=== PATIENT | female | born 2000 | race Caucasian/White ===

== ENCOUNTER 2022-01-08 16:10 | Emergency (ER) | payer OTHER, SELFPAY ==
--- NOTE | ~2022-01-08 | XR_ITS ---
EXAMINATION: XR chest 2V Exam Date/Time: 01/08/2022 17:48 CDT HISTORY: LEFT SIDE CHEST SHOULDER/ARM PAIN X 1 WEEK Comparison: None available. RESULT: Lines, tubes, and devices: None. Lungs and pleura: Clear. Cardiomediastinal silhouette: Normal. Other: No acute osseous or upper abdominal finding. IMPRESSION: No acute cardiopulmonary process. Reviewed, dictated and finalized at location K.
[2022-01-08 16:12] VITALS: BP 144/93; PULSE 115; RESP 18; TEMP 36.7; O2SAT 100
--- NOTE | 2022-01-08 16:15 | ECG_ITS ---
Measurements Intervals [place] Rate: 110 P: 51 VA: 129 QRS: 48 QRSD: 94 T: 10 QT: 332 QTc: 449 Interpretive Statements SINUS TACHYCARDIA OTHERWISE WITHIN NORMAL LIMITS NO PREVIOUS ECG AVAILABLE FOR COMPARISON Electronically Signed On 01-09-2022 14:14:47 CDT by Nakul Horvath M.D.
--- NOTE | 2022-01-08 17:43 | ED.CHESTPAIN ---
HPI - Chest Pain General Chief Complaint: Chest Pain Stated Complaint: chest pain Time Seen by Provider: 01/08/22 17:22 History of Present Illness HPI narrative: 21-year-old female with a history of high blood pressure presents to the emergency room for evaluation of chest pain. Patient states for the last 7 days, she has been experiencing sharp stabbing pain in her left side of her chest radiates into her shoulder. States the pain lasts for just a couple of seconds. States pain is present when she is just sitting. Denies shortness of breath or difficulty breathing. Denies exertional pain. Denies any other alleviating or aggravating factors. Denies any presyncope or syncopal episodes, no nausea or vomiting. Related Data Home Medications Medication Instructions Recorded Confirmed norethindrone acetate 1 mg-ethinyl 1 tablet PO DAILY 09/23/21 10/14/21 estradiol 20 mcg tablet (Neli) Allergies Allergy/AdvReac Type Severity Reaction Status Date / Time vancomycin Allergy Unknown Rash Verified 10/14/21 10:03 Review of Systems Review of Systems: CONSTITUTIONAL: Denies fever, chills, or sweats. EYES: Denies visual changes, redness, or discharge. ENT: Denies rhinorrhea, congestion, sore throat, or otalgia. CARDIOVASCULAR: Reports chest pain, denies palpitations or edema RESPIRATORY: Denies cough or dyspnea. GASTROINTESTINAL: Denies abdominal pain, nausea, vomiting, or diarrhea. GENITOURINARY: Denies dysuria or hematuria. SKIN: Denies rash or itching. MUSCULOSKELETAL: Denies back pain, joint pain, or myalgia. NEUROLOGIC: Denies headache, numbness, dizziness, or weakness. PSYCHIATRIC: Denies anxiety or depression. [facility] Past Medical History Medical History Claustrophobia Moderate right ankle sprain Wears glasses Surgical History Surgical History H/O laparoscopy Family History Family History Father Hypertension Mother Leukemia Hypertension Depression Sibling Asthma Depression Grandparent Skin cancer Diabetes mellitus Social History Social History Smoking status: Never smoker Alcohol intake: never Substance use: never Substance use type: does not use Gender identity (if verbalized by the patient): Female Exam Narrative: GENERAL: Well-appearing, well-nourished, no physical limitations, and in no acute distress. HEAD: Normocephalic, atraumatic. EYES: Conjunctivae normal, PERRLA and EOMI. CHEST: Clear to auscultation. No respiratory distress. No wheezes rales or rhonchi. No tenderness. HEART: Regular rate and rhythm. No murmur heard. Normal peripheral pulses. EXTREMITIES: Normal range of motion. No edema. No clubbing or cyanosis SKIN: Warm, dry, no rash. No noted wounds NEURO: No focal deficits. Alert and oriented x3. MAEW. CN's II-XI intact bilaterally, normal gait PSYCH: Cooperative. Normal mood and affect. Course Vital Signs Vital signs: Vital Signs Temperature 36.7 C 01/08/22 16:12 Pulse Rate 115 H 01/08/22 16:12 Respiratory Rate 18 01/08/22 16:12 Blood Pressure 144/93 H 01/08/22 16:12 Pulse Oximetry 100 01/08/22 16:12 Oxygen Delivery Room Air 01/08/22 16:12 Temperature 36.7 C 01/08/22 16:12 Pulse Rate 70 01/08/22 18:40 Respiratory Rate 18 01/08/22 18:40 Blood Pressure 124/71 01/08/22 18:40 Pulse Oximetry 98 01/08/22 18:40 Oxygen Delivery Room Air 01/08/22 17:45 MDM - Chest Pain Lab Data Result diagrams: 01/08/22 18:01 01/08/22 18:01 Labs: Lab Results 01/08/22 01/08/22 01/08/22 Range/Units 18:01 18:01 18:01 WBC 7.1 (4.5-10.0) K/mm3 RBC 4.37 (4.2-5.4) M/mm3 Hgb 13.4 (12.0-15.0) g/dL Hct 40.3 (37.0-47.0) % MCV 92.2 (80-100) fl MCH 30.7 (
[2022-01-08 17:44] VITALS: PULSE 101
[2022-01-08 17:45] VITALS: O2SAT 100; O2SAT 99
[2022-01-08 17:46] VITALS: BP 135/99; PULSE 105; RESP 20; O2SAT 100
[2022-01-08 18:06] LABS: Basophils Percent Auto 0.6 % (0.2-1.2); Eosinophils Absolute Auto 0.1 K/mm3 (0-0.3); Eosinophils Percent Auto 1.4 % (0-4.4); Hematocrit 40.3 % (37.0-47.0); Hemoglobin 13.4 g/dL (12.0-15.0); Immature Granulocyte Absolute 0.02 K/mm3 (0.00-0.031); Immature Granulocyte Percent A 0.3 % (0-0.5); Lymphocytes Absolute Auto 1.53 K/mm3 (0.9-3.2); Lymphocytes Percent Auto 21.5 % (18.3-44.2); Mean Corpuscular HGB Conc 33.3 g/dl (32-36); Mean Corpuscular Hemoglobin 30.7 pg (26-34); Mean Corpuscular Volume 92.2 fl (80-100); Mean Platelet Volume 10.2 fl (7.4-10.4); Monocytes Absolute Auto 0.4 K/mm3 (0.1-0.6); Monocytes Percent Auto 5.4 % (2.6-8.5); Neutrophils Percent Auto 70.8 % (45.5-73.1); Platelet Count Result 311 k/mm3 (150-375); Red Blood Count 4.37 M/mm3 (4.2-5.4); Red Cell Distribution Width 12.7 % (11.5-14.5); White Blood Count 7.1 K/mm3 (4.5-10.0)
[2022-01-08 18:19] LABS: Anion Gap 11 mmol/L (8-16); Blood Urea Nitrogen 13 mg/dL (7-17); Calcium 9.3 mg/dL (8.4-10.2); Carbon Dioxide 24 mmol/L (22-30); Chloride 104 mmol/L (98-107); Estimated CRCL calculation 118 ml/min; Estimated Glomerular Filt Rate > 60; Glucose 106 mg/dL (65-110); Lipase 153 U/L (23-300); Potassium 4.3 mmol/L (3.4-5.0); Sodium 139 mmol/L (137-145)
[2022-01-08 18:20] LABS: D Dimer 0.35 ug/mL (<0.48)
[2022-01-08 18:30] LABS: Troponin I < 0.012 ng/mL (0.000-0.034)
[2022-01-08] MEDS: SODIUM CHLORIDE 0.9% IV 1,000 ML 999 ML IV CONT (18:39)
[2022-01-08 18:40] VITALS: BP 124/71; PULSE 70; RESP 18; O2SAT 98
--- NOTE | 2022-01-08 19:13 | PC.NURSE ---
Report received from LEFTY Montoya. This nurse assumed care of patient at this time.
[2022-01-08 19:45] VITALS: BP 134/87; PULSE 88; RESP 17; O2SAT 98
== END 2022-01-08 19:48 | disposition home or self-care (01) ==
PROVIDERS: Emergency Provider Nurse Practitioner Family; PCP Family Medicine
DX: R07.9 Chest pain, unspecified (principal); I10 Essential (primary) hypertension; R00.0 Tachycardia, unspecified
CPT/HCPCS: 36415; 71046; 80048; 83690; 84443; 84484; 85025; 85380; 93005; 96360; 99284; J7030

== ENCOUNTER 2022-03-16 10:32 | Outpatient (CLI) | payer OTHER, SELFPAY ==
--- NOTE | 2022-03-16 10:38 | EST_ITS ---
Patient Info Name: Ashley Hall Age: 21 years : 2000 Gender: Female Ht: 66 in Wt: 200 lbs BSA: 2.09 m2 Exam Date: 03/16/2022 11:35 AM Exam Location: [facility] Stress Patient Status: Outpatient Admit Date: 03/16/2022 Staff Ordering Physician: Nella Silva Attending Provider: Nella Silva Exercise Technologist: Eddie Grimm RDCS, RT Exercise Physician: Deng Do DO Exam Type: CA stress test treadmill Study Info A treadmill exercise stress test was performed. Summary 1. 1. Negative Sudhir exercise stress test for ischemic ST changes by ECG criteria. 2. 2. Reduced functional capacity, achieving 11 METs of workload. 3. 3. Baseline hypertension with hypertensive response to exercise. 4. 4. Appropriate HR response to exercise. 5. 5. Appropriate HR recovery at 1 minute post exercise. 6. 6. No imaging with stress testing. 7. 7. Patient informed of the above results. Protocol: Sudhir Stress ECG Details Stage: REST Duration (min): 2 min : 12 sec Speed (mph): 0.0 Grade (%): 0 HR (bpm): 99 SBP (mmHg): 152 DBP (mmHg): 97 METS: --- Stage: REST Duration (min): 16 min : 16 sec Speed (mph): 0.0 Grade (%): 0 HR (bpm): 108 SBP (mmHg): 152 DBP (mmHg): 97 METS: --- Stage: STAGE 1 Duration (min): 1 min : 0 sec Speed (mph): 1.7 Grade (%): 10 HR (bpm): 149 SBP (mmHg): 152 DBP (mmHg): 97 METS: --- Stage: STAGE 1 Duration (min): 2 min : 0 sec Speed (mph): 1.7 Grade (%): 10 HR (bpm): 144 SBP (mmHg): 152 DBP (mmHg): 97 METS: --- Stage: STAGE 1 Duration (min): 3 min : 0 sec Speed (mph): 1.7 Grade (%): 10 HR (bpm): 151 SBP (mmHg): 193 DBP (mmHg): 92 METS: --- Stage: STAGE 2 Duration (min): 1 min : 0 sec Speed (mph): 2.5 Grade (%): 12 HR (bpm): 160 SBP (mmHg): 193 DBP (mmHg): 92 METS: --- Stage: STAGE 2 Duration (min): 2 min : 0 sec Speed (mph): 2.5 Grade (%): 12 HR (bpm): 167 SBP (mmHg): 196 DBP (mmHg): 94 METS: --- Stage: STAGE 2 Duration (min): 3 min : 0 sec Speed (mph): 2.5 Grade (%): 12 HR (bpm): 171 SBP (mmHg): 196 DBP (mmHg): 94 METS: --- Stage: STAGE 3 Duration (min): 1 min : 0 sec Speed (mph): 3.4 Grade (%): 14 HR (bpm): 182 SBP (mmHg): 202 DBP (mmHg): 88 METS: --- Stage: STAGE 3 Duration (min): 2 min : 0 sec Speed (mph): 3.4 Grade (%): 14 HR (bpm): 190 SBP (mmHg): 202 DBP (mmHg): 88 METS: --- Stage: STAGE 3 Duration (min): 3 min : 0 sec Speed (mph): 3.4 Grade (%): 14 HR (bpm): 193 SBP (mmHg): 220 DBP (mmHg): 86 METS: --- Stage: STAGE 4 Duration (min): 0 min : 30 sec Speed (mph): 4.2 Grade (%): 16 HR (bpm): 197 SBP (mmHg): 220 DBP (mmHg): 86 METS: --- Stage: RECOVERY Duration (
== END 2022-03-16 10:33 | disposition home or self-care (01) ==
LOC: ANHCARD 10:33
PROVIDERS: PCP Family Medicine; Visit Provider Nurse Practitioner
DX: R07.9 Chest pain, unspecified (principal)
CPT/HCPCS: 93017

== ENCOUNTER 2022-05-30 18:48 | Emergency (ER) | payer OTHER, SELFPAY ==
[2022-05-30 18:57] VITALS: BP 126/78; PULSE 86; RESP 18; TEMP 36.7; O2SAT 99
--- NOTE | 2022-05-30 18:59 | ED.ANXIETY ---
HPI - Anxiety General Chief Complaint: Anxiety Stated Complaint: chest pain, left shoulder pain Time Seen by Provider: 05/30/22 18:50 Source: patient and RN notes reviewed Mode of arrival: ambulatory Limitations: no limitations History of Present Illness HPI narrative: Patient has had problems with anxiety causing her chest pain for the past 2 years. She is currently on BuSpar. She took a Xanax 0.25 today but it did not seem to help. She says that her anxiety is causing her to feel like chest pain and shoulder pain. She has had a negative stress test just 2 months ago and all of her labs have been normal with her emergency room evaluation. complaint: anxiety Onset (ago): day(s) (1) Symptoms: chest pain Severity: moderate Quality: intermittent Place: home History of similar episodes: Yes Provoking factors: none known Relieving factors: nothing Exacerbating factors: nothing Associated symptoms: denies other symptoms Related Data Home Medications Medication Instructions Recorded Confirmed norethindrone acetate 1 mg-ethinyl 1 tablet PO DAILY 09/23/21 02/28/22 estradiol 20 mcg tablet (Neli) Allergies Allergy/AdvReac Type Severity Reaction Status Date / Time vancomycin Allergy Unknown Rash Verified 05/30/22 19:09 Review of Systems Review of Systems: All systems reviewed & are unremarkable except as noted in HPI and below Constitutional: Constitutional: Denies chills, Denies excessive sweating and Denies fever(s) Respiratory: Respiratory: Denies cough and Denies dyspnea Gastrointestinal: Gastrointestinal: Denies diarrhea, Denies nausea and Denies vomiting PMFSH Past Medical History Medical History Claustrophobia Moderate right ankle sprain Wears glasses Surgical History Surgical History H/O laparoscopy Family History Family History Father Hypertension Mother Leukemia Hypertension Depression Sibling Asthma Depression Grandparent Skin cancer Diabetes mellitus Social History Social History Smoking status: Never smoker Alcohol intake: never Substance use: never Substance use type: does not use Lack of Transportation: No Lack of Food: Never True Current Housing: I Have Housing Concerned About Future Housing: No Difficulty Paying Gas/Electric Bills: No Difficulty Paying for Meds: No Currently Unemployed: No Education: High School Diploma/GED Difficulty w/ Childcare or Family Care: No Gender identity (if verbalized by the patient): Female Exam Const: General: healthy appearing, no acute distress and alert Nutritional Appearance: well nourished Orientation/consciousness: patient oriented x3 Limitations: no limitations Other: Female nurse in room during exam HENMT: Head: normal to inspection Ears: external ears normal Eyes: Conjunctivae: conjunctivae normal Pupils: Equal, round and reactive pupils present EOM: EOMs intact bilaterally Neck: Neck: normal visual inspection Resp: Effort & Inspection: normal respiratory effort Auscultation: clear to auscultation bilaterally Cardio: Rate: regular rate Rhythm: regular rhythm GI: GI Palp: Yes Soft to palpation and No Tenderness to palpation present (GI) Auscultation: normal bowel sounds Back/Spine/Pelvis: Cervical Spine: cervical ROM normal Thoracic/Lumbar Spine: thoraco-lumbar ROM normal Skin: General skin exam: normal color Rashes: no rashes Neuro: General: patient oriented x3, moves all extremities, no focal motor deficits and CN's II-XI intact bilaterally Speech: normal speech Gait exam (Neuro): Normal gait present Extrem: General: normal to inspection and no clubbing, cyanosis or edema Psych: Mental Status: mental status grossly normal Affect: Anxious affect present Atti
[2022-05-30 19:16] VITALS: BP 118/84; PULSE 79; O2SAT 99
[2022-05-30] MEDS: chlordiazePOXIDE (*CRX) 5 MG CAPSULE 10 MG PO (19:16)
--- NOTE | 2022-05-30 19:19 | PC.NURSE ---
Care resumed, pt resting in room c b-friend at side. VSS stable, monitor shows NSR. Informed on POC, meds given as Rx'd.
--- NOTE | 2022-05-30 19:19 | PC.NURSE ---
REPORT TO LEFTY MCGUIRE
[2022-05-30 19:34] VITALS: BP 105/72; PULSE 72; RESP 18; TEMP 36.6; O2SAT 98
== END 2022-05-30 19:37 | disposition home or self-care (01) ==
PROVIDERS: Emergency Provider Emergency Medicine
DX: F41.9 Anxiety disorder, unspecified (principal)
CPT/HCPCS: 99283; A9270

== ENCOUNTER 2024-07-01 16:14 | Outpatient (CLI) | payer BC, SELFPAY ==
--- OUTSIDE RECORDS SUMMARY | 2024-07-01 16:23 | XMS_ITS | Referral Summary ---
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 This disclosure is being madepursuant to the Care Everywhere program and may not contain all information available regarding this patient. 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 Discharge Disposition: Home or Self Care 05/30/2024 Travel 05/30/2024 9:00 AM [facility] - 05/30/2024 11:59 PM [facility] [address] [place] [id number] Philly Bradford MD Discharge Disposition: Home or Self Care 05/30/2024 8:15 AM [facility] - 05/30/2024 8:59 AM [facility] [address] [place] [address] Philly Bradford MD Discharge Disposition: Home or Self Care 05/06/2024 Telephone [facility] [address] [place] [address] Nereida Pérez Appointment (LM for pt to C/S appt) from Last 3 Months Allergies Active Allergy Reactions Criticality Noted Date Comments Vancomycin Rash High 05/31/2024 Medications * Be aware that medications may not be up to date on this document. Alwaysverify current medications with the patient. Medication Sig Dispensed Refills Start Date End Date Status labetalol (Normodyne; Trandate) 200 MG tabletIndications:Hyp ertension Take 1 (one) tablet by mouth every 12 hours Reasons: High Blood Pressure Active Vit-DSS-Fe Fum-FA ( vitamin with iron) tablet Take 1 (one) tablet by mouth once daily Active Active Problems Problem Noted Date Diagnosed Date Hypertension complicating 05/31/2024 BMI 38.0-38.9,adult 05/31/2024 Obesity affecting in second trimester 05/31/2024 Stem cell donor 06/01/2020 Estimated Date of Delivery Comme nts Yes 09/23/2024 Based on last me nstrual period of 12/18/2023 Social History Tobacco Use Types Packs/Day Years Used Date Smoking Tobacco: Never Smokeless Tobacco: Never Alcohol Use Standard Drinks/Week Comments Never 0 (1 standard drink = 0.6 oz pur e alcohol) AUDIT-C Answer Date Recorded Q1: How often do you have a drink containing alc ohol? Never 06/10/2020 Average Number of Drinks Not on file 021 Frequency of Binge Drinking Not on file 12/2020 Estimated Date of Delivery Comme nts Yes 09/23/2024 Based on last me nstrual period of 12/18/2023 Sex and Gender Information Value Date Recorded Sex Assigned at Not on file Gender Identity Not on file Sexual Orientation Not on file Last Filed Vital Signs Vital Sign Reading Time Taken Comments Blood Pressure 129/77 05/30/2024 9:16 AM [facility] Pulse 95 05/30/2024 9:16 AM [facility] Temperature 37 ??C (98.6 ??F) 06/10/2020 4:54 PM [facility] Respiratory Rate 18 06/10/2020 7:10 PM [facility] Oxygen Saturation 100% 06/10/2020 7:10 PM [facility] Inhaled Oxygen Concentration - - Weight 110.5 kg (243 lb 9.6 oz) 05/30/2024 9:16 AM [facility] Height 170.2 cm (5' 7 ) 05/30/2024 9:16 AM [facility] Body Mass Index 38.15 05/30/2024 9:16 AM [facility] Plan of Treatment Upcoming Encounters Date Type Department Care Team (Late st Contact Info) Description 07/25/2024 1:00 PM [facility] Appointment [facility] [address] [place], [place] [id number] Procedures Procedure Name Priority Date/Time Associated Diagnosis Comments SONOGRAM - COMPLETE Routine 06/27/2024 1:04 PM [facility] BMI 38.0-38.9,adult Chronic hypertension affecting (HCC) 26 weeks gestation of (HCC) Obesity affecting in second trimester, unspecified obesity type (HCC) Hypertension affecting in second trimester (HCC) SONOGRAM - COMPLETE Routine 05/30/2024 8:20 AM [facility] Chronic hypertension affecting (HCC) Second (HCC) 23 weeks gestation of (HCC) from Last 3 Months Results * SONOGRAM - COMPLETE (06/27/2024 1:04 PM [facility]) Only the most recent of2 resultswithin the time period is included. Linked Results Indication ======== Incomplete anatomy Chronic Hypertension, on Labetalol 200 mg Seasonal Asthma History ====== OB History ? 2. Para 0 Lab Tests Test ? Date ? Result NIPT ? Low risk, Female Maternal Assessment Physical Exam ??Height 170 cm, 5 ft 7 in. Weight 111 kg, 245 lb. Initial weight 107 kg, 236 lb. BMI 38.37 kg/m?. Initial BMI 36.96 kg/m?. Weight gain 4 kg, 9 lb Method ====== Transabdominal ultrasound. View: Sufficient ========= Keith . Number of fetuses: 1 Dating ====== ? Date ?Details ? Gest. age ? PORFIRIO LMP ?12/18/2023 ? 27 w + 3 d ?09/23/2024 Stated PORFIRIO ? 27 w + 3 d ?09/23/2024 U/S ?06/27/2024 ? based upon AC, BPD, Femur, HC ? 27 w + 3 d ?09/23/2024 Assigned dating based on the LMP, selected on 05/30/2024 ? 27 w + 3 d ?09/23/2024 General Evaluation Cardiac activity present. FHR 152 bpm. Presentation: cephalic Placenta: Placental site: anterior Umbilical cord: Cord vessels: 3 vessel cord. Insertion site: normal insertion Amniotic fluid: Amount of AF: normal. MVP 6.9 cm Biometry BPD ?65.6 ?mm ?26w 3d ??12% ? Hadlock HC ? 245.7 ?? mm ?26w 5d ??7% ?Hadlock Cerebellum tr ?30.8 ?mm ?23% ? [place] AC ? 231.0 ?? mm ?27w 3d ??43% ? Hadlock Femur ?54.6 ?mm ?28w 6d ??76% ? Hadlock Humerus ?47.7 ?mm ?28w 0d ??64% ? Ashok HC / AC ?1.06 Weight Calculation: EFW ?1,127 ?? g ? 51% ? Hadlock EFW (lb,oz) ?2 lb 8 ??oz EFW by ? Hadlock ([id number]) appropriate Growth Overview Exam date ?GA ?BPD (mm) ?HC (mm) AC (mm) FL (mm) HL (mm) EFW (g) 05/30/2024 ? 23w 3d ??54.1 ?13% ? 204.7 ?? 9% ?188.6 ?? 48% ? 42 ?46% ? 39.4 ?59% ? 599 ? 44% 06/27/2024 ? 27w 3d ??65.6 ?12% ? 245.7 ?? 7% ?231 ? 43% ? 54.6 ?76% ? 47.7 ?64% ? 1127 ?51% Anatomy The following structures appear normal: Head / Neck ?Lateral ventricles. Cerebellum. Cisterna magna. Face ? Lips. Profile. Nose. Heart / Thorax 4-chamber view. 3-vessel view. 6-[id number]-qyuuqdd view. Abdomen ?Cord insertion. Stomach. Kidneys. Bladder. Genitals. Spine ?Cervical spine. Thoracic spine. Lumbar spine. Sacral spine. Extremities / Skeleton Feet. The following structures were documented previously: Head / Neck ?Cranium. Choroid plexus. Midline falx. Cavum septi pellucidi. Thalami. Face ? Nasal bone. Orbits. Heart / Thorax RVOT view. LVOT view. Situs. Aortic arch view. Bicaval view. Ductal arch view. Great vessels. ? Right lung. Left lung. Diaphragm. Abdomen ?Bowel. Extremities / Skeleton Arms. Hands. Legs. sex: female. Maternal Structures Right Ovary ?Appears normal ? Cyst(s) Size 18.0 mm x 12.0 mm x 15.0 mm. Mean 15.0 mm. Vol 1.696 cm? Left Ovary ? Not visualized Impression ========= Single, live, intrauterine at 27w 3d Appropriate size for established PORFIRIO Amniotic fluid volume: normal No major malformations were seen within the limitations of ultrasound Umbilical vein appears prominent at juncture with portal vein but within normal limits Follow-up ======== Follow up ultrasound in 4 weeks for growth assessment Begin weekly testing at 32 weeks (or sooner as indicated) Coding ====== Procedures ? [id number]: US Preg Uterus Follow Up [place] [facility] Anatomical Region Laterality Modality Other 06/27/2024 1:04 PM [facility] Jorden West MD [facility] ORDERABLES from Last 3 Months DEV HALL Personal/Famil y Father 1974 [address] [facility] Ashley Hall Personal/Famil y Self 2000 Dev Hall Personal/Famil y Father 1974 TIFFANY HALL Personal/Famil y Grandmother 1949
--- OUTSIDE RECORDS SUMMARY | 2024-07-01 16:23 | XMS_ITS | Patient Health Summary ---
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 This disclosure is being madepursuant to the Care Everywhere program and may not contain all information available regarding this patient. Last updated 18.[facility] Allergies * Vancomycin(Rash) -High Criticality Medications * Be aware that medications may not be up to date on this document. Alwaysverify current medications with the patient. 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 05/31/2024 Stem cell donor 06/01/2020 Social History Tobacco Use Types Packs/Day Years [...] Comments Blood Pressure 129/77 05/30/2024 9:16 AM DIRECTOR MARKET INTELLIGENCE Pulse 95 05/30/2024 9:16 AM DIRECTOR MARKET INTELLIGENCE Temperature 37 ??C (98.6 ??F) 06/10/2020 4:54 PM DIRECTOR MARKET INTELLIGENCE Respiratory Rate 18 06/10/2020 7:10 PM DIRECTOR MARKET INTELLIGENCE Oxygen Saturation 100% 06/10/2020 7:10 PM DIRECTOR MARKET INTELLIGENCE Inhaled Oxygen Concentration - - Weight 110.5 kg (243 lb 9.6 oz) 05/30/2024 9:16 AM DIRECTOR MARKET INTELLIGENCE Height 170.2 cm (5' 7 ) 05/30/2024 9:16 AM DIRECTOR MARKET INTELLIGENCE Body Mass Index 38.15 05/30/2024 9:16 AM DIRECTOR MARKET INTELLIGENCE Procedures * SONOGRAM - COMPLETE(Performed 06/27/2024) Performed for BMI 38.0-38.9,adult, Chronic hypertension affecting (HCC), 26 weeks gestation of (HCC), Obesity affecting in second trimester, unspecified obesity type (HCC), Hypertension affecting in second trimester (HCC) * SONOGRAM - COMPLETE(Performed 05/30/2024) Performed for Chronic hypertension affecting (HCC), Second (HCC), 23 weeks gestation of (HCC) * CARDIAC EKG ORDER(Performed 06/17/2020) * SPECIAL DIET INSTRUCTIONS TO INCLUDE...(Performed 06/10/2020) * DAILY WEIGHTS(Performed 06/10/2020) Performed for Stem cell donor * PUNCTURE SITE(Performed 06/10/2020) * DIET REGULAR(Performed 06/10/2020) Performed for Stem cell donor * DIET NPO(Performed 06/10/2020) * DIFFERENTIAL MANUAL(Performed 06/10/2020) Performed for Stem cell donor * CALCIUM IONIZED WHOLE BLOOD(Performed 06/10/2020) Performed for Stem cell donor * CBC W AUTO DIFFERENTIAL(Performed 06/10/2020) Performed for Stem cell donor * EKG 12-LEAD(Performed 06/10/2020) Performed for Stem cell donor * FLOW CYTOMETRY CD34 COUNT BLOOD(Performed 06/10/2020) Performed for Stem cell donor * DIFFERENTIAL MANUAL(Performed 06/10/2020) Performed for Stem cell donor * CBC W AUTO DIFFERENTIAL(Performed 06/10/2020) Performed for Stem cell donor * CALCIUM IONIZED WHOLE BLOOD(Performed 06/10/2020) Performed for Stem cell donor * TYPE + SCREEN PANEL(Performed 06/10/2020) Performed for Stem cell donor * IR CENTRAL LINE INSERT NON TUNNEL(Performed 06/10/2020) Performed for Stem cell donor * PT-INR [facility](Performed 06/10/2020) Performed for Preop testing * HCG URINE QUALITATIVE - POCT (IP) INTERFACED(Performed 06/10/2020) * HCG URINE QUAL POCT NOTIFICATION(Performed 06/10/2020) Performed for Preop testing * URINALYSIS REFLEX TO MICROSCOPIC NO CULTURE(Performed 06/07/2020) Performed for Urinary frequency, Stem cell donor * CULTURE URINE(Performed 06/07/2020) Performed for Urinary frequency, Stem cell donor * CBC W AUTO DIFFERENTIAL(Performed 06/06/2020) Performed for Stem cell donor * HCG URINE QUALITATIVE(Performed 06/04/2020) Performed for Stem cell donor * SARS-COV-2 (COVID-19) IN HOUSE(Performed 06/04/2020) Performed for Stem cell donor * QUANTIFERON-TB GOLD PLUS 4-TUBE(Performed 05/26/2020) Performed for Stem cell donor * URINALYSIS W/MICROSCOPIC NO CULTURE(Performed 05/21/2020) Performed for Stem cell donor * CULTURE URINE(Performed 05/21/2020) Performed for Stem cell donor * HERPES SIMPLEX 1+2 PCR(Performed 05/21/2020) Performed for Stem cell donor * HLA TYPING LOW/HIGH RESOLUTION DPB1(Performed 05/14/2020) Performed for Stem cell donor * HLA TYPING DNA LOW RESOLUTION DR,DQ(Performed 05/14/2020) Performed for Stem cell donor * HLA TYPING DNA LOW RESOLUTION A,B,C(Performed 05/14/2020) Performed for Stem cell donor * HLA TYPING DNA HIGH RESOLUTION DR(Performed 05/14/2020) Performed for Stem cell donor * URINALYSIS W/MICROSCOPIC NO CULTURE(Performed 05/14/2020) Performed for Stem cell donor * TYPE + SCREEN PANEL(Performed 05/14/2020) Performed for Stem cell donor * HLA TYPING DNA HIGH RESOLUTION DQ(Performed 05/14/2020) Performed for Stem cell donor * HLA TYPING DNA HIGH RESOLUTION C(Performed 05/14/2020) Performed for Stem cell donor * HLA TYPING DNA HIGH RESOLUTION B(Performed 05/14/2020) Performed for Stem cell donor * HLA TYPING DNA HIGH RESOLUTION A(Performed 05/14/2020) Performed for Stem cell donor * VARICELLA ZOSTER ANTIBODY IGG(Performed 05/14/2020) Performed for Stem cell donor * VARICELLA ZOSTER ANTIBODY IGM(Performed 05/14/2020) Performed for Stem cell donor * URIC ACID BLOOD(Performed 05/14/2020) Performed for Stem cell donor * TRIGLYCERIDES BLOOD(Performed 05/14/2020) Performed for Stem cell donor * TOXOPLASMA GONDII ANTIBODY IGG(Performed 05/14/2020) Performed for Stem cell donor * SICKLE CELL SCREEN(Performed 05/14/2020) Performed for Stem cell donor * PTT [facility](Performed 05/14/2020) Performed for Stem cell donor * PT-INR [facility](Performed 05/14/2020) Performed for Stem cell donor * PROTEIN ELECTROPHORESIS BLOOD(Performed 05/14/2020) Performed for Stem cell donor * PRE-TRANSPLANT ENGRAFT(Performed 05/14/2020) Performed for Stem cell donor * PHOSPHORUS BLOOD(Performed 05/14/2020) Performed for Stem cell donor * MAGNESIUM BLOOD(Performed 05/14/2020) Performed for Stem cell donor * LDH BLOOD(Performed 05/14/2020) Performed for Stem cell donor * HERPES SIMPLEX 1+2 ANTIBODY IGG/IGM PANEL(Performed 05/14/2020) Performed for Stem cell donor * HEPATITIS B SURFACE ANTIBODY(Performed 05/14/2020) Performed for Stem cell donor * HCG BETA BLOOD QUANTITATIVE(Performed 05/14/2020) Performed for Stem cell donor * SUPA-MOYER VIRUS ANTIBODY TO VCA IGM(Performed 05/14/2020) Performed for Stem cell donor * SUPA-MOYER VIRUS ANTIBODY TO VCA IGG(Performed 05/14/2020) Performed for Stem cell donor * DONOR PANEL [id number](Performed 05/14/2020) Performed for Stem cell donor * CYTOMEGALOVIRUS ANTIBODY IGG BLOOD(Performed 05/14/2020) Performed for Stem cell donor * CYTOMEGALOVIRUS ANTIBODY IGM BLOOD(Performed 05/14/2020) Performed for Stem cell donor * COMPREHENSIVE METABOLIC PANEL(Performed 05/14/2020) Performed for Stem cell donor * CHOLESTEROL BLOOD(Performed 05/14/2020) Performed for Stem cell donor * CBC W AUTO DIFFERENTIAL(Performed 05/14/2020) Performed for Stem cell donor * HLA TYPING DNA HIGH RESOLUTION A(Performed 04/09/2020) Performed for Donor of unspecified organ or tissue * HLA TYPING DNA HIGH RESOLUTION B(Performed 04/09/2020) Performed for Donor of unspecified organ or tissue * HLA TYPING DNA HIGH RESOLUTION C(Performed 04/09/2020) Performed for Donor of unspecified organ or tissue * HLA TYPING DNA HIGH RESOLUTION DR(Performed 04/09/2020) Performed for Donor of unspecified organ or tissue * HLA TYPING DNA HIGH RESOLUTION DQ(Performed 04/09/2020) Performed for Donor of unspecified organ or tissue * HLA TYPING DNA LOW RESOLUTION A,B,C(Performed 04/09/2020) Performed for Donor of unspecified organ or tissue * HLA TYPING DNA LOW RESOLUTION DR,DQ(Performed 04/09/2020) Performed for Donor of unspecified organ or tissue * HLA TYPING LOW/HIGH RESOLUTION DPB1(Performed 04/09/2020) Performed for Donor of unspecified organ or tissue * CYTOMEGALOVIRUS ANTIBODY IGG BLOOD(Performed 04/09/2020) Performed for Donor of unspecified organ or tissue * TYPE + SCREEN PANEL(Performed 04/09/2020) Performed for Donor of unspecified organ or tissue * PATHOLOGY/CYTOLOGY REPORT ORDER(Performed 06/22/2014) * PATHOLOGY TISSUE EXAM (STL)(Performed 06/19/2014) Performed for Cyst of right eyelid * IMAGING/RADIOLOGY/XRAY RESULTS ORDER(Performed 10/14/2012) Results * SONOGRAM - COMPLETE (06/27/2024 1:04 PM DIRECTOR MARKET INTELLIGENCE) Only the most recent of2 resultswithin the [...] lb 8 ??oz EFW by ? Hadlock ([id number]) appropriate Growth Overview Exam date ?GA ?BPD [...] Heart / Thorax 4-chamber view. 3-vessel view. 3-ghzdnq-vcdxshr view. Abdomen ?Cord insertion. Stomach. Kidneys. Bladder. [...] sooner as indicated) Coding ====== Procedures ? 38858: US [facility] Laterality Modality Other 06/27/2024 1:04 PM DIRECTOR MARKET INTELLIGENCE Jorden West MD [facility] ORDERABLES * CARDIAC EKG ORDER (06/17/2020 8:57 PM DIRECTOR MARKET INTELLIGENCE) Narrative 06/17/2020 8:57 PM DIRECTOR MARKET INTELLIGENCE Ordered by an unspecified provider. Scanned Document CARDIAC SERVICES ORD ERABLES * SPECIAL TRAY REQUEST (06/10/2020 5:21 PM DIRECTOR MARKET INTELLIGENCE) Narrative Zeferino Dunlap MD - 06/10/2020 5:21 PM DIRECTOR MARKET INTELLIGENCE Zeferino Dunlap MD ? 06/14/2020 ??3:47 PM Cellular Therapy Collections Progress Note Ashley Hall 06/10/2020 Diagnosis: No diagnosis found. Protocol/Regimen: HPC Mobilization and Collection Interval History: 19 y.o. female healthy allo donor for her mother here for allogeneic hematopoietic progenitor collection #1. She reports mild tenderness around catheter insertion site. No F/C/N/V/D/JOINER/CP/SOB No Known Allergies Current Outpatient Medications Medication Sig Dispense Refill ? ? bacitracin ointment ??28 g 3 ? ? multivitamin daily (THERAGRAN) tablet Take 1 Tab by mouth daily with food. ? mupirocin (BACTROBAN) 2 % ointment Apply to affected area 3 times daily ? sulfamethoxazole-trimethoprim (BACTRIM DS; SEPTRA DS) 800-160 MG tablet Take 1 tablet by mouth 2 times daily ?? No current facility-administered medications for this encounter. ?? Facility-Administered Medications Ordered in Other Encounters Medication Dose Route Frequency Provider Last Rate Last Admin ? ? acetaminophen (TYLENOL) tablet 650 mg ??650 mg Oral q4h PRN Meeta Henriquez PHOTOVOLTAIC FABRICATION TECHNICIAN-BOARDING KENNEL OR CATTERY OPERATOR ? calcium gluconate 5 g in 300 mL NS ??5 g Intravenous PRN FlorenceMeeta, PHOTOVOLTAIC FABRICATION TECHNICIAN-BOARDING KENNEL OR CATTERY OPERATOR 100 mL/hr at 06/10/20 1040 5 g at 06/10/20 1040 Physical Exam Constitutional: VS: T=99, P=105, UC=468/93, Os sat=99% RA General Appearance: No acute distress Head: No nasal congestion or discharge Skin: no bruises, or petechiae, erythematous papule with scab in her right axilla Eyes: anicteric: Chest: lungs clear to auscultation Heart: tachy, normal S1 and S2, no murmur Abdomen: soft, non-tender, +BS Extremities: no edema Neuro: Cranial nerves: intact Access: R IJ triple lumen bonilla catheter, insertion site covered with gauze Lab and/or Imaging Studies Recent Results (from the past 24 hour(s)) HCG URINE QUAL POCT NOTIFICATION Collection Time: 06/10/20 ??7:40 AM Result Value Ref Range Comment Notification Label Only - See Separate Report ?? HCG URINE QUALITATIVE - POCT (IP) INTERFACED Collection Time: 06/10/20 ??7:42 AM Result Value Ref Range HCG Qual Urine Negative Negative PT-INR [facility] Collection Time: 06/10/20 ??7:56 AM Result Value Ref Range PT 13.6 12.1 - 14.8 Seconds INR 1.1 See Comment TYPE AND SCREEN Collection Time: 06/10/20 10:00 AM Result Value Ref Range Antibody Screen NEG ?? ABO Rh A POS ?? CALCIUM IONIZED WHOLE BLOOD Collection Time: 06/10/20 10:16 AM Result Value Ref Range Ionized Calcium Whole Blood 1.19 mmol/L Adjusted Ionized Calcium 1.16 (L) 1.19 - 1.34 mmol/L pH Whole Blood 7.35 7.35 - 7.45 CBC W AUTO DIFFERENTIAL Collection Time: 06/10/20 10:16 AM Result Value Ref Range WBC 41.6 (H) 3.5 - 10.5 10? 3 /uL RBC 3.81 (L) 3.90 - 5.00 10? 6 /uL Hemoglobin 11.8 (L) 12.0 - 15.5 g/dL Hematocrit 34.9 (L) 35.0 - 45.0 % MCV 91.6 81.0 - 97.0 fL MCH 31.0 28.0 - 34.0 pg MCHC 33.8 32.0 - 36.0 g/dL Platelet Count 241 150 - 400 10? 3 /uL RDW-SD 42.6 36.0 - 50.0 fL RDW-CV 12.9 11.2 - 14.8 % MPV 10.7 9.3 - 12.8 fL nRBC Absolute 0.04 (H) 0 10? 3 /uL nRBC Auto 0.1 (H) 0 /100 WBC FLOW CYTOMETRY CD34 COUNT BLOOD Collection Time: 06/10/20 10:16 AM Result Value Ref Range Reason for test ?Stem cell donor V59.02 Client Specimen ID # ?[id number] Number of Markers 2 ?? Flow Cytometry Results ? Differential Result % Comment Total Viability ??93.2 ?? Lymph/Grant/Gran Region Surface Marker Results % Absolute Count (cell/uL) CD34 0.11 42.648 CD45 91.93 35,642.364 Flow Cytometry Interpretation ?Testing is technical only and does not require an interpretation of results. Disclaimer ?Test performed at [facility], [address] [place] [address], [address]. This test was developed and its performance characteristics determined by the Flow Cytometry Laboratory. It has not been cleared by the [place] Food and Drug Administration (FDA). The FDA has determined that such clearance or approval is not necessary. This test is used for clinical purposes. It should not be regarded as investigational or for research. This laboratory is regulated under the Clinical Laboratory Improvement Amendments of 1998 (CLIA) as a qualified to perform high complexity clinical testing. Embedded Images ?? DIFFERENTIAL MANUAL Collection Time: 06/10/20 10:16 AM Result Value Ref Range WBC (corrected for NRBC) 41.6 10? 3 /uL Total Cell Count 100 ?? Neutrophils Absolute Manual 32.86 (H) 1.60 - 7.00 10? 3 /uL Lymphocyte Absolute 3.33 (H) 0.80 - 2.90 10? 3 /uL Monocytes Absolute 1.66 (H) 0.14 - 0.66 10? 3 /uL Eosinophils Absolute Manual 0.42 (H) 0.00 - 0.22 10? 3 /uL Band % Manual 25 (H) 0 - 10 % Neutrophil % Manual 54 30 - 60 % Lymphocyte % 8 (L) 20 - 45 % Monocytes % Manual 4 2 - 10 % Eosinophils % 1 1 - 6 % Metamyelocyte % Manual 6 (H) 0 % Myelocytes % Manual 2 (H) 0 % Platelet Estimate Adequate Adequate RBC Morphology Normal ?? EKG 12-LEAD Collection Time: 06/10/20 ??2:14 PM Result Value Ref Range Ventricular Rate 122 BPM Atrial Rate 122 BPM P-R Interval 138 ms QRS Duration ms 84 ms Q-T Interval ms 330 ms QTC Calculation (Bezet) 470 ms Calculated P [place] 61 degrees Calculated R [place] 73 degrees Calculated T [place] 15 degrees Interpretation EKG ?SINUS TACHYCARDIA OTHERWISE NORMAL ECG NO PREVIOUS ECGS AVAILABLE CALCIUM IONIZED WHOLE BLOOD Collection Time: 06/10/20 ??5:01 PM Result Value Ref Range Ionized Calcium Whole Blood 1.16 mmol/L Adjusted Ionized Calcium 1.20 1.19 - 1.34 mmol/L pH Whole Blood 7.48 (H) 7.35 - 7.45 Procedures Leukapheresis Assessment and Plan Ashley Hall is a 19 year old female healthy related haplo donor who presents for peripheral blood hematopoietic progenitor collection #1. This is Day 5 of her Neupogen. ??Catheter placement was confirmed per IR note. No changes were noted in Donor History Questionnaire. Donor was stable going into collection. Pre collection Hct and Plt levels were acceptable. Post collection Hct=32.9, Yor=042 . The donor experienced slowly increasing tachycardia during the collection. EKG was obtained pointing to sinus tachycardia. HR stabilized ~115. The goal for this procedure ??is 6 x 10e6 CD34 cells/kg. Processed volume during procedure was 20,231 mL. Yield of collection was [id number] CD34/kg. Goal was reached per Dr Mendoza. Zeferino Dunlap MD, PhD Zeferino Dunlap MD NURSING - DIET * DAILY WEIGHTS (06/10/2020 5:21 PM DIRECTOR MARKET INTELLIGENCE) Narrative Zeferino Dunlap MD - 06/10/2020 5:21 PM Zeferino Dunlap MD ? 06/14/2020 ??3:47 PM Cellular Therapy Collections Progress Note Ashley Hall 06/10/2020 Diagnosis: No diagnosis found. Protocol/Regimen: HPC Mobilization and Collection Interval History: 19 y.o. female healthy allo donor for her mother here for allogeneic hematopoietic progenitor collection #1. She reports mild tenderness around catheter insertion site. No F/C/N/V/D/JOINER/CP/SOB No Known Allergies Current Outpatient Medications Medication Sig Dispense Refill ? ? bacitracin ointment ??28 g 3 ? ? multivitamin daily (THERAGRAN) tablet Take 1 Tab by mouth daily with food. ? mupirocin (BACTROBAN) 2 % ointment Apply to affected area 3 times daily ? sulfamethoxazole-trimethoprim (BACTRIM DS; SEPTRA DS) 800-160 MG tablet Take 1 tablet by mouth 2 times daily ?? No current facility-administered medications for this encounter. ?? Facility-Administered Medications Ordered in Other Encounters Medication Dose Route Frequency Provider Last Rate Last Admin ? ? acetaminophen (TYLENOL) tablet 650 mg ??650 mg Oral q4h PRN Florence, Meeta, PHOTOVOLTAIC FABRICATION TECHNICIAN-BOARDING KENNEL OR CATTERY OPERATOR ? calcium gluconate 5 g in 300 mL NS ??5 g Intravenous PRN Florence, Meeta, PHOTOVOLTAIC FABRICATION TECHNICIAN-BOARDING KENNEL OR CATTERY OPERATOR 100 mL/hr at 06/10/20 1040 5 g at 06/10/20 1040 Physical Exam Constitutional: VS: T=99, P=105, SQ=758/93, Os sat=99% RA General Appearance: No acute distress Head: No nasal congestion or discharge Skin: no bruises, or petechiae, erythematous papule with scab in her right axilla Eyes: anicteric: Chest: lungs clear to auscultation Heart: tachy, normal S1 and S2, no murmur Abdomen: soft, non-tender, +BS Extremities: no edema Neuro: Cranial nerves: intact Access: R IJ triple lumen bonilla catheter, insertion site covered with gauze Lab and/or Imaging Studies Recent Results (from the past 24 hour(s)) HCG URINE QUAL POCT NOTIFICATION Collection Time: 06/10/20 ??7:40 AM Result Value Ref Range Comment Notification Label Only - See Separate Report ?? HCG URINE QUALITATIVE - POCT (IP) INTERFACED Collection Time: 06/10/20 ??7:42 AM Result Value Ref Range HCG Qual Urine Negative Negative PT-INR [facility] Collection Time: 06/10/20 ??7:56 AM Result Value Ref Range PT 13.6 12.1 - 14.8 Seconds INR 1.1 See Comment TYPE AND SCREEN Collection Time: 06/10/20 10:00 AM Result Value Ref Range Antibody Screen NEG ?? ABO Rh A POS ?? CALCIUM IONIZED WHOLE BLOOD Collection Time: 06/10/20 10:16 AM Result Value Ref Range Ionized Calcium Whole Blood 1.19 mmol/L Adjusted Ionized Calcium 1.16 (L) 1.19 - 1.34 mmol/L pH Whole Blood 7.35 7.35 - 7.45 CBC W AUTO DIFFERENTIAL Collection Time: 06/10/20 10:16 AM Result Value Ref Range WBC 41.6 (H) 3.5 - 10.5 10? 3 /uL RBC 3.81 (L) 3.90 - 5.00 10? 6 /uL Hemoglobin 11.8 (L) 12.0 - 15.5 g/dL Hematocrit 34.9 (L) 35.0 - 45.0 % MCV 91.6 81.0 - 97.0 fL MCH 31.0 28.0 - 34.0 pg MCHC 33.8 32.0 - 36.0 g/dL Platelet Count 241 150 - 400 10? 3 /uL RDW-SD 42.6 36.0 - 50.0 fL RDW-CV 12.9 11.2 - 14.8 % MPV 10.7 9.3 - 12.8 fL nRBC Absolute 0.04 (H) 0 10? 3 /uL nRBC Auto 0.1 (H) 0 /100 WBC FLOW CYTOMETRY CD34 COUNT BLOOD Collection Time: 06/10/20 10:16 AM Result Value Ref Range Reason for test ?Stem cell donor V59.02 Client Specimen ID # ?[id number] Number of Markers 2 ?? Flow Cytometry Results ? Differential Result % Comment Total Viability ??93.2 ?? Lymph/Grant/Gran Region Surface Marker Results % Absolute Count (cell/uL) CD34 0.11 42.648 CD45 91.93 35,642.364 Flow Cytometry Interpretation ?Testing is technical only and does not require an interpretation of results. Disclaimer ?Test performed at [facility], [address], [place], [place], [address]. This test was developed and its performance characteristics determined by the Flow Cytometry Laboratory. It has not been cleared by the [place] Food and Drug Administration (FDA). The FDA has determined that such clearance or approval is not necessary. This test is used for clinical purposes. It should not be regarded as investigational or for research. This laboratory is regulated under the Clinical Laboratory Improvement Amendments of 1998 (CLIA) as a qualified to perform high complexity clinical testing. Embedded Images ?? DIFFERENTIAL MANUAL Collection Time: 06/10/20 10:16 AM Result Value Ref Range WBC (corrected for NRBC) 41.6 10? 3 /uL Total Cell Count 100 ?? Neutrophils Absolute Manual 32.86 (H) 1.60 - 7.00 10? 3 /uL Lymphocyte Absolute 3.33 (H) 0.80 - 2.90 10? 3 /uL Monocytes Absolute 1.66 (H) 0.14 - 0.66 10? 3 /uL Eosinophils Absolute Manual 0.42 (H) 0.00 - 0.22 10? 3 /uL Band % Manual 25 (H) 0 - 10 % Neutrophil % Manual 54 30 - 60 % Lymphocyte % 8 (L) 20 - 45 % Monocytes % Manual 4 2 - 10 % Eosinophils % 1 1 - 6 % Metamyelocyte % Manual 6 (H) 0 % Myelocytes % Manual 2 (H) 0 % Platelet Estimate Adequate Adequate RBC Morphology Normal ?? EKG 12-LEAD Collection Time: 06/10/20 ??2:14 PM Result Value Ref Range Ventricular Rate 122 BPM Atrial Rate 122 BPM P-R Interval 138 ms QRS Duration ms 84 ms Q-T Interval ms 330 ms QTC Calculation (Bezet) 470 ms Calculated P [place] 61 degrees Calculated R [place] 73 degrees Calculated T [place] 15 degrees Interpretation EKG ?SINUS TACHYCARDIA OTHERWISE NORMAL ECG NO PREVIOUS ECGS AVAILABLE CALCIUM IONIZED WHOLE BLOOD Collection Time: 06/10/20 ??5:01 PM Result Value Ref Range Ionized Calcium Whole Blood 1.16 mmol/L Adjusted Ionized Calcium 1.20 1.19 - 1.34 mmol/L pH Whole Blood 7.48 (H) 7.35 - 7.45 Procedures Leukapheresis Assessment and Plan Ashley Hall is a 19 year old female healthy related haplo donor who presents for peripheral blood hematopoietic progenitor collection #1. This is Day 5 of her Neupogen. ??Catheter placement was confirmed per IR note. No changes were noted in Donor History Questionnaire. Donor was stable going into collection. Pre collection Hct and Plt levels were acceptable. Post collection Hct=32.9, Cvm=033 . The donor experienced slowly increasing tachycardia during the collection. EKG was obtained pointing to sinus tachycardia. HR stabilized ~115. The goal for this procedure ??is 6 x 10e6 CD34 cells/kg. Processed volume during procedure was 20,231 mL. Yield of collection was [id number] CD34/kg. Goal was reached per Dr Mendoza. Zeferino Dunlap MD, PhD Meeta ARIZMENDI NURSING - VITAL S IGNS AND ASSESSMENT * PUNCTURE SITE (06/10/2020 5:21 PM DIRECTOR MARKET INTELLIGENCE) Narrative Zeferino Dunlap MD - 06/10/2020 5:21 PM DIRECTOR MARKET INTELLIGENCE Zeferino Dunlap MD ? 06/14/2020 ??3:47 PM Cellular Therapy Collections Progress Note Ashley Hall 06/10/2020 Diagnosis: No diagnosis found. Protocol/Regimen: HPC Mobilization and Collection Interval History: 19 y.o. female healthy allo donor for her mother here for allogeneic hematopoietic progenitor collection #1. She reports mild tenderness around catheter insertion site. No F/C/N/V/D/JOINER/CP/SOB No Known Allergies Current Outpatient Medications Medication Sig Dispense Refill ? ? bacitracin ointment ??28 g 3 ? ? multivitamin daily (THERAGRAN) tablet Take 1 Tab by mouth daily with food. ? mupirocin (BACTROBAN) 2 % ointment Apply to affected area 3 times daily ? sulfamethoxazole-trimethoprim (BACTRIM DS; SEPTRA DS) 800-160 MG tablet Take 1 tablet by mouth 2 times daily ?? No current facility-administered medications for this encounter. ?? Facility-Administered Medications Ordered in Other Encounters Medication Dose Route Frequency Provider Last Rate Last Admin ? ? acetaminophen (TYLENOL) tablet 650 mg ??650 mg Oral q4h PRN Meeta Henriquez APRN-CNP ? calcium gluconate 5 g in 300 mL NS ??5 g Intravenous PRN Meeta Henriquez, JOSE-BOARDING KENNEL OR CATTERY OPERATOR 100 mL/hr at 06/10/20 1040 5 g at 06/10/20 1040 Physical Exam Constitutional: VS: T=99, P=105, LH=909/93, Os sat=99% RA General Appearance: No acute distress Head: No nasal congestion or discharge Skin: no bruises, or petechiae, erythematous papule with scab in her right axilla Eyes: anicteric: Chest: lungs clear to auscultation Heart: tachy, normal S1 and S2, no murmur Abdomen: soft, non-tender, +BS Extremities: no edema Neuro: Cranial nerves: intact Access: R IJ triple lumen bonilla catheter, insertion site covered with gauze Lab and/or Imaging Studies Recent Results (from the past 24 hour(s)) HCG URINE QUAL POCT NOTIFICATION Collection Time: 06/10/20 ??7:40 AM Result Value Ref Range Comment Notification Label Only - See Separate Report ?? HCG URINE QUALITATIVE - POCT (IP) INTERFACED Collection Time: 06/10/20 ??7:42 AM Result Value Ref Range HCG Qual Urine Negative Negative PT-INR [facility] Collection Time: 06/10/20 ??7:56 AM Result Value Ref Range PT 13.6 12.1 - 14.8 Seconds INR 1.1 See Comment TYPE AND SCREEN Collection Time: 06/10/20 10:00 AM Result Value Ref Range Antibody Screen NEG ?? ABO Rh A POS ?? CALCIUM IONIZED WHOLE BLOOD Collection Time: 06/10/20 10:16 AM Result Value Ref Range Ionized Calcium Whole Blood 1.19 mmol/L Adjusted Ionized Calcium 1.16 (L) 1.19 - 1.34 mmol/L pH Whole Blood 7.35 7.35 - 7.45 CBC W AUTO DIFFERENTIAL Collection Time: 06/10/20 10:16 AM Result Value Ref Range WBC 41.6 (H) 3.5 - 10.5 10? 3 /uL RBC 3.81 (L) 3.90 - 5.00 10? 6 /uL Hemoglobin 11.8 (L) 12.0 - 15.5 g/dL Hematocrit 34.9 (L) 35.0 - 45.0 % MCV 91.6 81.0 - 97.0 fL MCH 31.0 28.0 - 34.0 pg MCHC 33.8 32.0 - 36.0 g/dL Platelet Count 241 150 - 400 10? 3 /uL RDW-SD 42.6 36.0 - 50.0 fL RDW-CV 12.9 11.2 - 14.8 % MPV 10.7 9.3 - 12.8 fL nRBC Absolute 0.04 (H) 0 10? 3 /uL nRBC Auto 0.1 (H) 0 /100 WBC FLOW CYTOMETRY CD34 COUNT BLOOD Collection Time: 06/10/20 10:16 AM Result Value Ref Range Reason for test ?Stem cell donor V59.02 Client Specimen ID # ?[id number] Number of Markers 2 ?? Flow Cytometry Results ? Differential Result % Comment Total Viability ??93.2 ?? Lymph/Grant/Gran Region Surface Marker Results % Absolute Count (cell/uL) CD34 0.11 42.648 CD45 91.93 35,642.364 Flow Cytometry Interpretation ?Testing is technical only and does not require an interpretation of results. Disclaimer ?Test performed at [facility], [address] [place] [address], [id number]. This test was developed and its performance characteristics determined by the Flow Cytometry Laboratory. It has not been cleared by the [place] Food and Drug Administration (FDA). The FDA has determined that such clearance or approval is not necessary. This test is used for clinical purposes. It should not be regarded as investigational or for research. This laboratory is regulated under the Clinical Laboratory Improvement Amendments of 1998 (CLIA) as a qualified to perform high complexity clinical testing. Embedded Images ?? DIFFERENTIAL MANUAL Collection Time: 06/10/20 10:16 AM Result Value Ref Range WBC (corrected for NRBC) 41.6 10? 3 /uL Total Cell Count 100 ?? Neutrophils Absolute Manual 32.86 (H) 1.60 - 7.00 10? 3 /uL Lymphocyte Absolute 3.33 (H) 0.80 - 2.90 10? 3 /uL Monocytes Absolute 1.66 (H) 0.14 - 0.66 10? 3 /uL Eosinophils Absolute Manual 0.42 (H) 0.00 - 0.22 10? 3 /uL Band % Manual 25 (H) 0 - 10 % Neutrophil % Manual 54 30 - 60 % Lymphocyte % 8 (L) 20 - 45 % Monocytes % Manual 4 2 - 10 % Eosinophils % 1 1 - 6 % Metamyelocyte % Manual 6 (H) 0 % Myelocytes % Manual 2 (H) 0 % Platelet Estimate Adequate Adequate RBC Morphology Normal ?? EKG 12-LEAD Collection Time: 06/10/20 ??2:14 PM Result Value Ref Range Ventricular Rate 122 BPM Atrial Rate 122 BPM P-R Interval 138 ms QRS Duration ms 84 ms Q-T Interval ms 330 ms QTC Calculation (Bezet) 470 ms Calculated P [place] 61 degrees Calculated R [place] 73 degrees Calculated T [place] 15 degrees Interpretation EKG ?SINUS TACHYCARDIA OTHERWISE NORMAL ECG NO PREVIOUS ECGS AVAILABLE CALCIUM IONIZED WHOLE BLOOD Collection Time: 06/10/20 ??5:01 PM Result Value Ref Range Ionized Calcium Whole Blood 1.16 mmol/L Adjusted Ionized Calcium 1.20 1.19 - 1.34 mmol/L pH Whole Blood 7.48 (H) 7.35 - 7.45 Procedures Leukapheresis Assessment and Plan Ashley Hall is a 19 year old female healthy related haplo donor who presents for peripheral blood hematopoietic progenitor collection #1. This is Day 5 of her Neupogen. ??Catheter placement was confirmed per IR note. No changes were noted in Donor History Questionnaire. Donor was stable going into collection. Pre collection Hct and Plt levels were acceptable. Post collection Hct=32.9, Nbh=218 . The donor experienced slowly increasing tachycardia during the collection. EKG was obtained pointing to sinus tachycardia. HR stabilized ~115. The goal for this procedure ??is 6 x 10e6 CD34 cells/kg. Processed volume during procedure was 20,231 mL. Yield of collection was [id number] CD34/kg. Goal was reached per Dr Mendoza. Zeferino Dunlap MD, PhD Quan Paredes MD NURSING - WOUND SAMY TMENT * DIET NPO Except: NO EXCEPTIONS (06/10/2020 5:21 PM DIRECTOR MARKET INTELLIGENCE) Narrative [facility] - 06/10/2020 5:21 PM DIRECTOR MARKET INTELLIGENCE Zeferino Dunlap MD ? 06/14/2020 ??3:47 PM Cellular Therapy Collections Progress Note Ashley Hall 06/10/2020 Diagnosis: No diagnosis found. Protocol/Regimen: HPC Mobilization and Collection Interval History: 19 y.o. female healthy allo donor for her mother here for allogeneic hematopoietic progenitor collection #1. She reports mild tenderness around catheter insertion site. No F/C/N/V/D/JOINER/CP/SOB No Known Allergies Current Outpatient Medications Medication Sig Dispense Refill ? ? bacitracin ointment ??28 g 3 ? ? multivitamin daily (THERAGRAN) tablet Take 1 Tab by mouth daily with food. ? mupirocin (BACTROBAN) 2 % ointment Apply to affected area 3 times daily ? sulfamethoxazole-trimethoprim (BACTRIM DS; SEPTRA DS) 800-160 MG tablet Take 1 tablet by mouth 2 times daily ?? No current facility-administered medications for this encounter. ?? Facility-Administered Medications Ordered in Other Encounters Medication Dose Route Frequency Provider Last Rate Last Admin ? ? acetaminophen (TYLENOL) tablet 650 mg ??650 mg Oral q4h PRN Florence, Meeta, PHOTOVOLTAIC FABRICATION TECHNICIAN-BOARDING KENNEL OR CATTERY OPERATOR ? calcium gluconate 5 g in 300 mL NS ??5 g Intravenous PRN Florence, Meeta, PHOTOVOLTAIC FABRICATION TECHNICIAN-BOARDING KENNEL OR CATTERY OPERATOR 100 mL/hr at 06/10/20 1040 5 g at 06/10/20 1040 Physical Exam Constitutional: VS: T=99, P=105, HW=287/93, Os sat=99% RA General Appearance: No acute distress Head: No nasal congestion or discharge Skin: no bruises, or petechiae, erythematous papule with scab in her right axilla Eyes: anicteric: Chest: lungs clear to auscultation Heart: tachy, normal S1 and S2, no murmur Abdomen: soft, non-tender, +BS Extremities: no edema Neuro: Cranial nerves: intact Access: R IJ triple lumen bonilla catheter, insertion site covered with gauze Lab and/or Imaging Studies Recent Results (from the past 24 hour(s)) HCG URINE QUAL POCT NOTIFICATION Collection Time: 06/10/20 ??7:40 AM Result Value Ref Range Comment Notification Label Only - See Separate Report ?? HCG URINE QUALITATIVE - POCT (IP) INTERFACED Collection Time: 06/10/20 ??7:42 AM Result Value Ref Range HCG Qual Urine Negative Negative PT-INR H Collection Time: 06/10/20 ??7:56 AM Result Value Ref Range PT 13.6 12.1 - 14.8 Seconds INR 1.1 See Comment TYPE AND SCREEN Collection Time: 06/10/20 10:00 AM Result Value Ref Range Antibody Screen NEG ?? ABO Rh A POS ?? CALCIUM IONIZED WHOLE BLOOD Collection Time: 06/10/20 10:16 AM Result Value Ref Range Ionized Calcium Whole Blood 1.19 mmol/L Adjusted Ionized Calcium 1.16 (L) 1.19 - 1.34 mmol/L pH Whole Blood 7.35 7.35 - 7.45 CBC W AUTO DIFFERENTIAL Collection Time: 06/10/20 10:16 AM Result Value Ref Range WBC 41.6 (H) 3.5 - 10.5 10? 3 /uL RBC 3.81 (L) 3.90 - 5.00 10? 6 /uL Hemoglobin 11.8 (L) 12.0 - 15.5 g/dL Hematocrit 34.9 (L) 35.0 - 45.0 % MCV 91.6 81.0 - 97.0 fL MCH 31.0 28.0 - 34.0 pg MCHC 33.8 32.0 - 36.0 g/dL Platelet Count 241 150 - 400 10? 3 /uL RDW-SD 42.6 36.0 - 50.0 fL RDW-CV 12.9 11.2 - 14.8 % MPV 10.7 9.3 - 12.8 fL nRBC Absolute 0.04 (H) 0 10? 3 /uL nRBC Auto 0.1 (H) 0 /100 WBC FLOW CYTOMETRY CD34 COUNT BLOOD Collection Time: 06/10/20 10:16 AM Result Value Ref Range Reason for test ?Stem cell donor V59.02 Client Specimen ID # ?[id number] Number of Markers 2 ?? Flow Cytometry Results ? Differential Result % Comment Total Viability ??93.2 ?? Lymph/Grant/Gran Region Surface Marker Results % Absolute Count (cell/uL) CD34 0.11 42.648 CD45 91.93 35,642.364 Flow Cytometry Interpretation ?Testing is technical only and does not require an interpretation of results. Disclaimer ?Test performed at [facility], [address] [place] [address], [id number]. This test was developed and its performance characteristics determined by the Flow Cytometry Laboratory. It has not been cleared by the [place] Food and Drug Administration (FDA). The FDA has determined that such clearance or approval is not necessary. This test is used for clinical purposes. It should not be regarded as investigational or for research. This laboratory is regulated under the Clinical Laboratory Improvement Amendments of 1998 (CLIA) as a qualified to perform high complexity clinical testing. Embedded Images ?? DIFFERENTIAL MANUAL Collection Time: 06/10/20 10:16 AM Result Value Ref Range WBC (corrected for NRBC) 41.6 10? 3 /uL Total Cell Count 100 ?? Neutrophils Absolute Manual 32.86 (H) 1.60 - 7.00 10? 3 /uL Lymphocyte Absolute 3.33 (H) 0.80 - 2.90 10? 3 /uL Monocytes Absolute 1.66 (H) 0.14 - 0.66 10? 3 /uL Eosinophils Absolute Manual 0.42 (H) 0.00 - 0.22 10? 3 /uL Band % Manual 25 (H) 0 - 10 % Neutrophil % Manual 54 30 - 60 % Lymphocyte % 8 (L) 20 - 45 % Monocytes % Manual 4 2 - 10 % Eosinophils % 1 1 - 6 % Metamyelocyte % Manual 6 (H) 0 % Myelocytes % Manual 2 (H) 0 % Platelet Estimate Adequate Adequate RBC Morphology Normal ?? EKG 12-LEAD Collection Time: 06/10/20 ??2:14 PM Result Value Ref Range Ventricular Rate 122 BPM Atrial Rate 122 BPM P-R Interval 138 ms QRS Duration ms 84 ms Q-T Interval ms 330 ms QTC Calculation (Bezet) 470 ms Calculated P [place] 61 degrees Calculated R [place] 73 degrees Calculated T [place] 15 degrees Interpretation EKG ?SINUS TACHYCARDIA OTHERWISE NORMAL ECG NO PREVIOUS ECGS AVAILABLE CALCIUM IONIZED WHOLE BLOOD Collection Time: 06/10/20 ??5:01 PM Result Value Ref Range Ionized Calcium Whole Blood 1.16 mmol/L Adjusted Ionized Calcium 1.20 1.19 - 1.34 mmol/L pH Whole Blood 7.48 (H) 7.35 - 7.45 Procedures Leukapheresis Assessment and Plan Ashley Hall is a 19 year old female healthy related haplo donor who presents for peripheral blood hematopoietic progenitor collection #1. This is Day 5 of her Neupogen. ??Catheter placement was confirmed per IR note. No changes were noted in Donor History Questionnaire. Donor was stable going into collection. Pre collection Hct and Plt levels were acceptable. Post collection Hct=32.9, Qhy=739 . The donor experienced slowly increasing tachycardia during the collection. EKG was obtained pointing to sinus tachycardia. HR stabilized ~115. The goal for this procedure ??is 6 x 10e6 CD34 cells/kg. Processed volume during procedure was 20,231 mL. Yield of collection was 5.60v00u5 CD34/kg. Goal was reached per Dr Mendoza. Zeferino Dunlap MD, PhD Quan Paredes MD DIET ORDERABLES [facility] * DIET REGULAR (06/10/2020 5:21 PM DIRECTOR MARKET INTELLIGENCE) Narrative [facility] - 06/10/2020 5:21 PM DIRECTOR MARKET INTELLIGENCE Zeferino Dunlap MD ? 06/14/2020 ??3:47 PM Cellular Therapy Collections Progress Note Ashley Hall 06/10/2020 Diagnosis: No diagnosis found. Protocol/Regimen: HPC Mobilization and Collection Interval History: 19 y.o. female healthy allo donor for her mother here for allogeneic hematopoietic progenitor collection #1. She reports mild tenderness around catheter insertion site. No F/C/N/V/D/JOINER/CP/SOB No Known Allergies Current Outpatient Medications Medication Sig Dispense Refill ? ? bacitracin ointment ??28 g 3 ? ? multivitamin daily (THERAGRAN) tablet Take 1 Tab by mouth daily with food. ? mupirocin (BACTROBAN) 2 % ointment Apply to affected area 3 times daily ? sulfamethoxazole-trimethoprim (BACTRIM DS; SEPTRA DS) 800-160 MG tablet Take 1 tablet by mouth 2 times daily ?? No current facility-administered medications for this encounter. ?? Facility-Administered Medications Ordered in Other Encounters Medication Dose Route Frequency Provider Last Rate Last Admin ? ? acetaminophen (TYLENOL) tablet 650 mg ??650 mg Oral q4h PRN Florence, Meeta, PHOTOVOLTAIC FABRICATION TECHNICIAN-BOARDING KENNEL OR CATTERY OPERATOR ? calcium gluconate 5 g in 300 mL NS ??5 g Intravenous PRN Florence, Meeta, PHOTOVOLTAIC FABRICATION TECHNICIAN-BOARDING KENNEL OR CATTERY OPERATOR 100 mL/hr at 06/10/20 1040 5 g at 06/10/20 1040 Physical Exam Constitutional: VS: T=99, P=105, PV=097/93, Os sat=99% RA General Appearance: No acute distress Head: No nasal congestion or discharge Skin: no bruises, or petechiae, erythematous papule with scab in her right axilla Eyes: anicteric: Chest: lungs clear to auscultation Heart: tachy, normal S1 and S2, no murmur Abdomen: soft, non-tender, +BS Extremities: no edema Neuro: Cranial nerves: intact Access: R IJ triple lumen bonilla catheter, insertion site covered with gauze Lab and/or Imaging Studies Recent Results (from the past 24 hour(s)) HCG URINE QUAL POCT NOTIFICATION Collection Time: 06/10/20 ??7:40 AM Result Value Ref Range Comment Notification Label Only - See Separate Report ?? HCG URINE QUALITATIVE - POCT (IP) INTERFACED Collection Time: 06/10/20 ??7:42 AM Result Value Ref Range HCG Qual Urine Negative Negative PT-INR [facility] Collection Time: 06/10/20 ??7:56 AM Result Value Ref Range PT 13.6 12.1 - 14.8 Seconds INR 1.1 See Comment TYPE AND SCREEN Collection Time: 06/10/20 10:00 AM Result Value Ref Range Antibody Screen NEG ?? ABO Rh A POS ?? CALCIUM IONIZED WHOLE BLOOD Collection Time: 06/10/20 10:16 AM Result Value Ref Range Ionized Calcium Whole Blood 1.19 mmol/L Adjusted Ionized Calcium 1.16 (L) 1.19 - 1.34 mmol/L pH Whole Blood 7.35 7.35 - 7.45 CBC W AUTO DIFFERENTIAL Collection Time: 06/10/20 10:16 AM Result Value Ref Range WBC 41.6 (H) 3.5 - 10.5 10? 3 /uL RBC 3.81 (L) 3.90 - 5.00 10? 6 /uL Hemoglobin 11.8 (L) 12.0 - 15.5 g/dL Hematocrit 34.9 (L) 35.0 - 45.0 % MCV 91.6 81.0 - 97.0 fL MCH 31.0 28.0 - 34.0 pg MCHC 33.8 32.0 - 36.0 g/dL Platelet Count 241 150 - 400 10? 3 /uL RDW-SD 42.6 36.0 - 50.0 fL RDW-CV 12.9 11.2 - 14.8 % MPV 10.7 9.3 - 12.8 fL nRBC Absolute 0.04 (H) 0 10? 3 /uL nRBC Auto 0.1 (H) 0 /100 WBC FLOW CYTOMETRY CD34 COUNT BLOOD Collection Time: 06/10/20 10:16 AM Result Value Ref Range Reason for test ?Stem cell donor V59.02 Client Specimen ID # ?[id number] Number of Markers 2 ?? Flow Cytometry Results ? Differential Result % Comment Total Viability ??93.2 ?? Lymph/Grant/Gran Region Surface Marker Results % Absolute Count (cell/uL) CD34 0.11 42.648 CD45 91.93 35,642.364 Flow Cytometry Interpretation ?Testing is technical only and does not require an interpretation of results. Disclaimer ?Test performed at [facility], [address] [place] [address], [facility]. This test was developed and its performance characteristics determined by the Flow Cytometry Laboratory. It has not been cleared by the [place] Food and Drug Administration (FDA). The FDA has determined that such clearance or approval is not necessary. This test is used for clinical purposes. It should not be regarded as investigational or for research. This laboratory is regulated under the Clinical Laboratory Improvement Amendments of 1998 (CLIA) as a qualified to perform high complexity clinical testing. Embedded Images ?? DIFFERENTIAL MANUAL Collection Time: 06/10/20 10:16 AM Result Value Ref Range WBC (corrected for NRBC) 41.6 10? 3 /uL Total Cell Count 100 ?? Neutrophils Absolute Manual 32.86 (H) 1.60 - 7.00 10? 3 /uL Lymphocyte Absolute 3.33 (H) 0.80 - 2.90 10? 3 /uL Monocytes Absolute 1.66 (H) 0.14 - 0.66 10? 3 /uL Eosinophils Absolute Manual 0.42 (H) 0.00 - 0.22 10? 3 /uL Band % Manual 25 (H) 0 - 10 % Neutrophil % Manual 54 30 - 60 % Lymphocyte % 8 (L) 20 - 45 % Monocytes % Manual 4 2 - 10 % Eosinophils % 1 1 - 6 % Metamyelocyte % Manual 6 (H) 0 % Myelocytes % Manual 2 (H) 0 % Platelet Estimate Adequate Adequate RBC Morphology Normal ?? EKG 12-LEAD Collection Time: 06/10/20 ??2:14 PM Result Value Ref Range Ventricular Rate 122 BPM Atrial Rate 122 BPM P-R Interval 138 ms QRS Duration ms 84 ms Q-T Interval ms 330 ms QTC Calculation (Bezet) 470 ms Calculated P [place] 61 degrees Calculated R [place] 73 degrees Calculated T [place] 15 degrees Interpretation EKG ?SINUS TACHYCARDIA OTHERWISE NORMAL ECG NO PREVIOUS ECGS AVAILABLE CALCIUM IONIZED WHOLE BLOOD Collection Time: 06/10/20 ??5:01 PM Result Value Ref Range Ionized Calcium Whole Blood 1.16 mmol/L Adjusted Ionized Calcium 1.20 1.19 - 1.34 mmol/L pH Whole Blood 7.48 (H) 7.35 - 7.45 Procedures Leukapheresis Assessment and Plan Ashley Hall is a 19 year old female healthy related haplo donor who presents for peripheral blood hematopoietic progenitor collection #1. This is Day 5 of her Neupogen. ??Catheter placement was confirmed per IR note. No changes were noted in Donor History Questionnaire. Donor was stable going into collection. Pre collection Hct and Plt levels were acceptable. Post collection Hct=32.9, Gcv=661 . The donor experienced slowly increasing tachycardia during the collection. EKG was obtained pointing to sinus tachycardia. HR stabilized ~115. The goal for this procedure ??is 6 x 10e6 CD34 cells/kg. Processed volume during procedure was 20,231 mL. Yield of collection was 5.61r70r3 CD34/kg. Goal was reached per Dr Mendoza. Zeferino Dunlap MD, PhD Meeta Henriquez PHOTOVOLTAIC FABRICATION TECHNICIAN-BOARDING KENNEL OR CATTERY OPERATOR DIET [facility]ABLES [facility] * (ABNORMAL) CALCIUM IONIZED WHOLE BLOOD (06/10/2020 5:01 PM DIRECTOR MARKET INTELLIGENCE) Only the most recent of2 resultswithin the time period is included. Ionized Calcium Whole Blood 1.16 mmol/L 06/10/2020 5:12 PM DIRECTOR MARKET INTELLIGENCE [facility] Adjusted Ionized Calcium 1.20 1.19 - 1.34 mmol/L 06/10/2020 5:12 PM DIRECTOR MARKET INTELLIGENCE [facility] pH Whole Blood 7.48(H) 7.35 - 7.45 06/10/2020 5:12 PM [facility] Blood WHOLE BLOOD SPECIMEN / Unknown Venipuncture / Unknown 06/10/2020 5:01 PM DIRECTOR MARKET INTELLIGENCE 06/10/2020 5:11 PM DIRECTOR MARKET INTELLIGENCE Gisela [facility] - 06/10/2020 5:21 PM DIRECTOR MARKET INTELLIGENCE Zeferino Dunlap MD ? 06/14/2020 ??3:47 PM Cellular Therapy Collections Progress Note Ashley Hall 06/10/2020 Diagnosis: No diagnosis found. Protocol/Regimen: HPC Mobilization and Collection Interval History: 19 y.o. female healthy allo donor for her mother here for allogeneic hematopoietic progenitor collection #1. She reports mild tenderness around catheter insertion site. No F/C/N/V/D/JOINER/CP/SOB No Known Allergies Current Outpatient Medications Medication Sig Dispense Refill ? ? bacitracin ointment ??28 g 3 ? ? multivitamin daily (THERAGRAN) tablet Take 1 Tab by mouth daily with food. ? mupirocin (BACTROBAN) 2 % ointment Apply to affected area 3 times daily ? sulfamethoxazole-trimethoprim (BACTRIM DS; SEPTRA DS) 800-160 MG tablet Take 1 tablet by mouth 2 times daily ?? No current facility-administered medications for this encounter. ?? Facility-Administered Medications Ordered in Other Encounters Medication Dose Route Frequency Provider Last Rate Last Admin ? ? acetaminophen (TYLENOL) tablet 650 mg ??650 mg Oral q4h PRN FlorenceMeeta, PHOTOVOLTAIC FABRICATION TECHNICIAN-BOARDING KENNEL OR CATTERY OPERATOR ? calcium gluconate 5 g in 300 mL NS ??5 g Intravenous PRN FlorenceMeeta, PHOTOVOLTAIC FABRICATION TECHNICIAN-BOARDING KENNEL OR CATTERY OPERATOR 100 mL/hr at 06/10/20 1040 5 g at 06/10/20 1040 Physical Exam Constitutional: VS: T=99, P=105, VF=008/93, Os sat=99% RA General Appearance: No acute distress Head: No nasal congestion or discharge Skin: no bruises, or petechiae, erythematous papule with scab in her right axilla Eyes: anicteric: Chest: lungs clear to auscultation Heart: tachy, normal S1 and S2, no murmur Abdomen: soft, non-tender, +BS Extremities: no edema Neuro: Cranial nerves: intact Access: R IJ triple lumen bonilla catheter, insertion site covered with gauze Lab and/or Imaging Studies Recent Results (from the past 24 hour(s)) HCG URINE QUAL POCT NOTIFICATION Collection Time: 06/10/20 ??7:40 AM Result Value Ref Range Comment Notification Label Only - See Separate Report ?? HCG URINE QUALITATIVE - POCT (IP) INTERFACED Collection Time: 06/10/20 ??7:42 AM Result Value Ref Range HCG Qual Urine Negative Negative PT-INR [facility] Collection Time: 06/10/20 ??7:56 AM Result Value Ref Range PT 13.6 12.1 - 14.8 Seconds INR 1.1 See Comment TYPE AND SCREEN Collection Time: 06/10/20 10:00 AM Result Value Ref Range Antibody Screen NEG ?? ABO Rh A POS ?? CALCIUM IONIZED WHOLE BLOOD Collection Time: 06/10/20 10:16 AM Result Value Ref Range Ionized Calcium Whole Blood 1.19 mmol/L Adjusted Ionized Calcium 1.16 (L) 1.19 - 1.34 mmol/L pH Whole Blood 7.35 7.35 - 7.45 CBC W AUTO DIFFERENTIAL Collection Time: 06/10/20 10:16 AM Result Value Ref Range WBC 41.6 (H) 3.5 - 10.5 10? 3 /uL RBC 3.81 (L) 3.90 - 5.00 10? 6 /uL Hemoglobin 11.8 (L) 12.0 - 15.5 g/dL Hematocrit 34.9 (L) 35.0 - 45.0 % MCV 91.6 81.0 - 97.0 fL MCH 31.0 28.0 - 34.0 pg MCHC 33.8 32.0 - 36.0 g/dL Platelet Count 241 150 - 400 10? 3 /uL RDW-SD 42.6 36.0 - 50.0 fL RDW-CV 12.9 11.2 - 14.8 % MPV 10.7 9.3 - 12.8 fL nRBC Absolute 0.04 (H) 0 10? 3 /uL nRBC Auto 0.1 (H) 0 /100 WBC FLOW CYTOMETRY CD34 COUNT BLOOD Collection Time: 06/10/20 10:16 AM Result Value Ref Range Reason for test ?Stem cell donor V59.02 Client Specimen ID # ?[id number] Number of Markers 2 ?? Flow Cytometry Results ? Differential Result % Comment Total Viability ??93.2 ?? Lymph/Grant/Gran Region Surface Marker Results % Absolute Count (cell/uL) CD34 0.11 42.648 CD45 91.93 35,642.364 Flow Cytometry Interpretation ?Testing is technical only and does not require an interpretation of results. Disclaimer ?Test performed at [facility], [address] [place] [address], [id number]. This test was developed and its performance characteristics determined by the Flow Cytometry Laboratory. It has not been cleared by the [place] Food and Drug Administration (FDA). The FDA has determined that such clearance or approval is not necessary. This test is used for clinical purposes. It should not be regarded as investigational or for research. This laboratory is regulated under the Clinical Laboratory Improvement Amendments of 1998 (CLIA) as a qualified to perform high complexity clinical testing. Embedded Images ?? DIFFERENTIAL MANUAL Collection Time: 06/10/20 10:16 AM Result Value Ref Range WBC (corrected for NRBC) 41.6 10? 3 /uL Total Cell Count 100 ?? Neutrophils Absolute Manual 32.86 (H) 1.60 - 7.00 10? 3 /uL Lymphocyte Absolute 3.33 (H) 0.80 - 2.90 10? 3 /uL Monocytes Absolute 1.66 (H) 0.14 - 0.66 10? 3 /uL Eosinophils Absolute Manual 0.42 (H) 0.00 - 0.22 10? 3 /uL Band % Manual 25 (H) 0 - 10 % Neutrophil % Manual 54 30 - 60 % Lymphocyte % 8 (L) 20 - 45 % Monocytes % Manual 4 2 - 10 % Eosinophils % 1 1 - 6 % Metamyelocyte % Manual 6 (H) 0 % Myelocytes % Manual 2 (H) 0 % Platelet Estimate Adequate Adequate RBC Morphology Normal ?? EKG 12-LEAD Collection Time: 06/10/20 ??2:14 PM Result Value Ref Range Ventricular Rate 122 BPM Atrial Rate 122 BPM P-R Interval 138 ms QRS Duration ms 84 ms Q-T Interval ms 330 ms QTC Calculation (Bezet) 470 ms Calculated P [place] 61 degrees Calculated R [place] 73 degrees Calculated T [place] 15 degrees Interpretation EKG ?SINUS TACHYCARDIA OTHERWISE NORMAL ECG NO PREVIOUS ECGS AVAILABLE CALCIUM IONIZED WHOLE BLOOD Collection Time: 06/10/20 ??5:01 PM Result Value Ref Range Ionized Calcium Whole Blood 1.16 mmol/L Adjusted Ionized Calcium 1.20 1.19 - 1.34 mmol/L pH Whole Blood 7.48 (H) 7.35 - 7.45 Procedures Leukapheresis Assessment and Plan Ashley Hall is a 19 year old female healthy related haplo donor who presents for peripheral blood hematopoietic progenitor collection #1. This is Day 5 of her Neupogen. ??Catheter placement was confirmed per IR note. No changes were noted in Donor History Questionnaire. Donor was stable going into collection. Pre collection Hct and Plt levels were acceptable. Post collection Hct=32.9, Lgl=091 . The donor experienced slowly increasing tachycardia during the collection. EKG was obtained pointing to sinus tachycardia. HR stabilized ~115. The goal for this procedure ??is 6 x 10e6 CD34 cells/kg. Processed volume during procedure was 20,231 mL. Yield of collection was 5.55l54i4 CD34/kg. Goal was reached per Dr Mendoza. Zeferino Dunlap MD, PhD Zeferino Dunlap MD LAB - CHEMISTRY OR DERABLES [facility] [address] [place] [address], [facility] [phone] * (ABNORMAL) DIFFERENTIAL MANUAL (06/10/2020 5:01 PM DIRECTOR MARK[employer] INTELL[employer]) Only the most recent of2 resultswithin the time period is included. WBC (corrected for NRBC) 37.2 10? 3 /uL 06/10/2020 6:10 PM [facility] Total Cell Count 100 06/10/19 21 6:10 PM [facility] Neutrophils Absolute Manual 31.62(H) 1.60 - 7.00 10? 3 /uL 06/10/2020 6:10 PM [facility] Comment:(BANDS+SEGS) x WBC = NEUT # (ANC) Lymphocyte Absolute Manual 2.60 0.80 - 2.90 10? 3 /uL 06/10/2020 6:10 PM [facility] Monocytes Absolute Manual 1.49(H) 0.14 - 0.66 10? 3 /uL 06/10/2020 6:10 PM [facility] Band % Manual 15(H) 0 - 10 % 06/10/2020 6:10 PM [facility] Neutrophil % Manual 70(H) 30 - 60 % 06/10/2020 6:10 PM [facility] Lymphocyte % Manual 7(L) 20 - 45 % 06/10/2020 6:10 PM [facility] Monocytes % Manual 4 2 - 10 % 06/10/2020 6:10 PM [facility] Metamyelocyte % Manual 3(H) 0 % 06/10/2020 6:10 PM [facility] Myelocytes % Manual 1(H) 0 % 06/10/2020 6:10 PM [facility] Platelet Estimate Decreased( A) Adequate 06/10/2020 6:10 PM [facility] RBC Morphology Normal 06/10/2020 6:10 PM [facility] Blood BLOOD SPECIMEN / Unknown Venipuncture / Unknown 06/10/2020 5:01 PM [employer] 06/10/2020 5:16 PM [facility] Meeta Henriquez PHOTOVOLTAIC FABRICATION TECHNICIAN-BOARDING KENNEL OR CATTERY OPERATOR LAB - HEMATOLOGY ORDERABLES [address] [address], [facility] [phone] * (ABNORMAL) CBC W AUTO DIFFERENTIAL (06/10/2020 5:01 PM [employer]) Only the most recent of4 resultswithin the time period is included. WBC 37.2(H) 3.5 - 10.5 10? 3 /uL 06/10/2020 5:34 PM [facility] Comment:All CBC parameters h ave been checked. RBC 3.58(L) 3.90 - 5.00 10? 6 /uL 06/10/2020 5:34 PM [facility] Hemoglobin 11.0(L) 12.0 - 15.5 g/dL 06/10/2020 5:34 PM [facility] Hematocrit 32.9(L) 35.0 - 45.0 % 06/10/2020 5:34 PM [facility] MCV 91.9 81.0 - 97.0 fL 06/10/2020 5:34 PM [facility] MCH 30.7 28.0 - 34.0 pg 06/10/2020 5:34 PM [facility] MCHC 33.4 32.0 - 36.0 g/dL 06/10/2020 5:34 PM [facility] Platelet Count 123(L) 150 - 400 10? 3 /uL 06/10/2020 5:34 PM [facility] Comment:Confirmed by repeat analysis. RDW-SD 43.2 36.0 - 50.0 fL 06/10/2020 5:34 PM [facility] RDW-CV 12.9 11.2 - 14.8 % 06/10/2020 5:34 PM [facility] MPV 9.5 9.3 - 12.8 fL 06/10/2020 5:34 PM [facility] nRBC Absolute 0.05(H) 0 10? 3 /uL 06/10/2020 5:34 PM [facility] nRBC Auto 0.1(H) 0 /100 WBC 06/10/2020 5:34 PM [facility] Blood BLOOD SPECIMEN / Unknown Venipuncture / Unknown 06/10/2020 5:01 PM [facility] 06/10/2020 5:16 PM [facility] - 06/10/2020 5:21 PM [facility] Zeferino Dunlap MD ? 06/14/2020 ??3:47 PM Cellular Therapy Collections Progress Note Ashley Hall 06/10/2020 Diagnosis: No diagnosis found. Protocol/Regimen: HPC Mobilization and Collection Interval History: 19 y.o. female healthy allo donor for her mother here for allogeneic hematopoietic progenitor collection #1. She reports mild tenderness around catheter insertion site. No F/C/N/V/D/JOINER/CP/SOB No Known Allergies Current Outpatient Medications Medication Sig Dispense Refill ? ? bacitracin ointment ??28 g 3 ? ? multivitamin daily (THERAGRAN) tablet Take 1 Tab by mouth daily with food. ? mupirocin (BACTROBAN) 2 % ointment Apply to affected area 3 times daily ? sulfamethoxazole-trimethoprim (BACTRIM DS; SEPTRA DS) 800-160 MG tablet Take 1 tablet by mouth 2 times daily ?? No current facility-administered medications for this encounter. ?? Facility-Administered Medications Ordered in Other Encounters Medication Dose Route Frequency Provider Last Rate Last Admin ? ? acetaminophen (TYLENOL) tablet 650 mg ??650 mg Oral q4h PRN FlorenceMeeta, PHOTOVOLTAIC FABRICATION TECHNICIAN-BOARDING KENNEL OR CATTERY OPERATOR ? calcium gluconate 5 g in 300 mL NS ??5 g Intravenous PRN FlorenceMeeta, PHOTOVOLTAIC FABRICATION TECHNICIAN-BOARDING KENNEL OR CATTERY OPERATOR 100 mL/hr at 06/10/20 1040 5 g at 06/10/20 1040 Physical Exam Constitutional: VS: T=99, P=105, IU=749/93, Os sat=99% RA General Appearance: No acute distress Head: No nasal congestion or discharge Skin: no bruises, or petechiae, erythematous papule with scab in her right axilla Eyes: anicteric: Chest: lungs clear to auscultation Heart: tachy, normal S1 and S2, no murmur Abdomen: soft, non-tender, +BS Extremities: no edema Neuro: Cranial nerves: intact Access: R IJ triple lumen bonilla catheter, insertion site covered with gauze Lab and/or Imaging Studies Recent Results (from the past 24 hour(s)) HCG URINE QUAL POCT NOTIFICATION Collection Time: 06/10/20 ??7:40 AM Result Value Ref Range Comment Notification Label Only - See Separate Report ?? HCG URINE QUALITATIVE - POCT (IP) INTERFACED Collection Time: 06/10/20 ??7:42 AM Result Value Ref Range HCG Qual Urine Negative Negative PT-INR [facility] Collection Time: 06/10/20 ??7:56 AM Result Value Ref Range PT 13.6 12.1 - 14.8 Seconds INR 1.1 See Comment TYPE AND SCREEN Collection Time: 06/10/20 10:00 AM Result Value Ref Range Antibody Screen NEG ?? ABO Rh A POS ?? CALCIUM IONIZED WHOLE BLOOD Collection Time: 06/10/20 10:16 AM Result Value Ref Range Ionized Calcium Whole Blood 1.19 mmol/L Adjusted Ionized Calcium 1.16 (L) 1.19 - 1.34 mmol/L pH Whole Blood 7.35 7.35 - 7.45 CBC W AUTO DIFFERENTIAL Collection Time: 06/10/20 10:16 AM Result Value Ref Range WBC 41.6 (H) 3.5 - 10.5 10? 3 /uL RBC 3.81 (L) 3.90 - 5.00 10? 6 /uL Hemoglobin 11.8 (L) 12.0 - 15.5 g/dL Hematocrit 34.9 (L) 35.0 - 45.0 % MCV 91.6 81.0 - 97.0 fL MCH 31.0 28.0 - 34.0 pg MCHC 33.8 32.0 - 36.0 g/dL Platelet Count 241 150 - 400 10? 3 /uL RDW-SD 42.6 36.0 - 50.0 fL RDW-CV 12.9 11.2 - 14.8 % MPV 10.7 9.3 - 12.8 fL nRBC Absolute 0.04 (H) 0 10? 3 /uL nRBC Auto 0.1 (H) 0 /100 WBC FLOW CYTOMETRY CD34 COUNT BLOOD Collection Time: 06/10/20 10:16 AM Result Value Ref Range Reason for test ?Stem cell donor V59.02 Client Specimen ID # ?[id number] Number of Markers 2 ?? Flow Cytometry Results ? Differential Result % Comment Total Viability ??93.2 ?? Lymph/Grant/Gran Region Surface Marker Results % Absolute Count (cell/uL) CD34 0.11 42.648 CD45 91.93 35,642.364 Flow Cytometry Interpretation ?Testing is technical only and does not require an interpretation of results. Disclaimer ?Test performed at [facility], [address] [place] [address], [address]. This test was developed and its performance characteristics determined by the Flow Cytometry Laboratory. It has not been cleared by the [place] Food and Drug Administration (FDA). The FDA has determined that such clearance or approval is not necessary. This test is used for clinical purposes. It should not be regarded as investigational or for research. This laboratory is regulated under the Clinical Laboratory Improvement Amendments of 1998 (CLIA) as a qualified to perform high complexity clinical testing. Embedded Images ?? DIFFERENTIAL MANUAL Collection Time: 06/10/20 10:16 AM Result Value Ref Range WBC (corrected for NRBC) 41.6 10? 3 /uL Total Cell Count 100 ?? Neutrophils Absolute Manual 32.86 (H) 1.60 - 7.00 10? 3 /uL Lymphocyte Absolute 3.33 (H) 0.80 - 2.90 10? 3 /uL Monocytes Absolute 1.66 (H) 0.14 - 0.66 10? 3 /uL Eosinophils Absolute Manual 0.42 (H) 0.00 - 0.22 10? 3 /uL Band % Manual 25 (H) 0 - 10 % Neutrophil % Manual 54 30 - 60 % Lymphocyte % 8 (L) 20 - 45 % Monocytes % Manual 4 2 - 10 % Eosinophils % 1 1 - 6 % Metamyelocyte % Manual 6 (H) 0 % Myelocytes % Manual 2 (H) 0 % Platelet Estimate Adequate Adequate RBC Morphology Normal ?? EKG 12-LEAD Collection Time: 06/10/20 ??2:14 PM Result Value Ref Range Ventricular Rate 122 BPM Atrial Rate 122 BPM P-R Interval 138 ms QRS Duration ms 84 ms Q-T Interval ms 330 ms QTC Calculation (Bezet) 470 ms Calculated P [place] 61 degrees Calculated R [place] 73 degrees Calculated T [place] 15 degrees Interpretation EKG ?SINUS TACHYCARDIA OTHERWISE NORMAL ECG NO PREVIOUS ECGS AVAILABLE CALCIUM IONIZED WHOLE BLOOD Collection Time: 06/10/20 ??5:01 PM Result Value Ref Range Ionized Calcium Whole Blood 1.16 mmol/L Adjusted Ionized Calcium 1.20 1.19 - 1.34 mmol/L pH Whole Blood 7.48 (H) 7.35 - 7.45 Procedures Leukapheresis Assessment and Plan Ashley Hall is a 19 year old female healthy related haplo donor who presents for peripheral blood hematopoietic progenitor collection #1. This is Day 5 of her Neupogen. ??Catheter placement was confirmed per IR note. No changes were noted in Donor History Questionnaire. Donor was stable going into collection. Pre collection Hct and Plt levels were acceptable. Post collection Hct=32.9, Jdq=097 . The donor experienced slowly increasing tachycardia during the collection. EKG was obtained pointing to sinus tachycardia. HR stabilized ~115. The goal for this procedure ??is 6 x 10e6 CD34 cells/kg. Processed volume during procedure was 20,231 mL. Yield of collection was 5.45a05n5 CD34/kg. Goal was reached per Dr Mendoza. Zeferino Dunlap MD, PhD Meeta Henriquez PHOTOVOLTAIC FABRICATION TECHNICIAN-BOARDING KENNEL OR CATTERY OPERATOR LAB - HEMATOLOGY ORDERABLES [facility] [address] [place] [address], [facility] [phone] * EKG 12-LEAD (06/10/2020 2:14 PM [employer]) Ventricular Rate 122 BPM [facility] MUSE Atrial Rate 122 BPM [facility] MUSE P-R Interval 138 ms [facility] MUSE QRS Duration ms 84 ms [facility] MUSE Q-T Interval ms 330 ms [facility] MUSE QTC Calculation (Bezet) 470 ms SL MUSE Calculated P [place] 61 degrees SL MUSE Calculated R [place] 73 degrees SL MUSE Calculated T [place] 15 degrees [facility] MUSE Interpretation EKG SINUS TACHYCARDIA OTHERWISE NORMAL ECG NO PREVIOUS ECGS AVAILABLE Confirmed by fellow Carol Hurst ([id number]) on 06/11/2020 2:17:16 PM Confirmed by Kenny Parkinson ([id number]) on 06/16/2020 12:22:17 PM [facility] MUSE 06/10/2020 2:14 PM [employer] 06/16/2020 12:22 PM [facility] Meeta Henriquez PHOTOVOLTAIC FABRICATION TECHNICIAN-BOARDING KENNEL OR CATTERY OPERATOR ECG ORDERABLES Performing Organization Address [facility]/ZIP Co de Phone Number [facility] * FLOW CYTOMETRY CD34 COUNT BLOOD (06/10/2020 10:16 AM DIRECTOR MARKET INTELLIGENCE) Pathologist [facility] Reason for test Stem cell donor V59.02 06/10/2020 12:05 PM [facility] Client Specimen ID # [id number] 06/10/2020 12:05 PM [facility] Number of Markers 2 06/10/2020 12:05 PM [facility] Flow Cytometry Results Differential Result % Comment Total Viability 93.2 Lymph/Grant/Gran Region Surface Marker Results % Absolute Count (cell/uL) CD34 0.11 42.648 CD45 91.93 35,642.364 06/10/2020 12:05 PM [facility] Flow Cytometry Interpretation Testing is technical only and does not require an interpretation of results. 06/10/2020 12:05 PM [facility] Disclaimer Test performed at [facility], [address], [place], [place], [address]. This test was developed and its performance characteristics determined by the Flow Cytometry Laboratory. It has not been cleared by the [place] Food and Drug Administration (FDA). The FDA has determined that such clearance or approval is not necessary. This test is used for clinical purposes. It should not be regarded as investigational or for research. This laboratory is regulated under the Clinical Laboratory Improvement Amendments of 1998 (CLIA) as a qualified to perform high complexity clinical testing. 06/10/2020 12:05 PM [facility] Embedded Images 12:05 PM [facility] Blood BLOOD SPECIMEN / Unknown Venipuncture / Unknown 06/10/2020 10:16 AM [employer] 06/10/2020 10:33 AM [facility] PATHOLOGY LAB - 06/10/2020 5:21 PM Zeferino Dunlap MD ? 06/14/2020 ??3:47 PM Cellular Therapy Collections Progress Note Ashley Zacariassteven 06/10/2020 Diagnosis: No diagnosis found. Protocol/Regimen: HPC Mobilization and Collection Interval History: 19 y.o. female healthy allo donor for her mother here for allogeneic hematopoietic progenitor collection #1. She reports mild tenderness around catheter insertion site. No F/C/N/V/D/JOINER/CP/SOB No Known Allergies Current Outpatient Medications Medication Sig Dispense Refill ? ? bacitracin ointment ??28 g 3 ? ? multivitamin daily (THERAGRAN) tablet Take 1 Tab by mouth daily with food. ? mupirocin (BACTROBAN) 2 % ointment Apply to affected area 3 times daily ? sulfamethoxazole-trimethoprim (BACTRIM DS; SEPTRA DS) 800-160 MG tablet Take 1 tablet by mouth 2 times daily ?? No current facility-administered medications for this encounter. ?? Facility-Administered Medications Ordered in Other Encounters Medication Dose Route Frequency Provider Last Rate Last Admin ? ? acetaminophen (TYLENOL) tablet 650 mg ??650 mg Oral q4h PRN Meeta Henriquez APRN-BOARDING KENNEL OR CATTERY OPERATOR ? calcium gluconate 5 g in 300 mL NS ??5 g Intravenous PRN Meeta Henriquez, JOSE-BOARDING KENNEL OR CATTERY OPERATOR 100 mL/hr at 06/10/20 1040 5 g at 06/10/20 1040 Physical Exam Constitutional: VS: T=99, P=105, VS=859/93, Os sat=99% RA General Appearance: No acute distress Head: No nasal congestion or discharge Skin: no bruises, or petechiae, erythematous papule with scab in her right axilla Eyes: anicteric: Chest: lungs clear to auscultation Heart: tachy, normal S1 and S2, no murmur Abdomen: soft, non-tender, +BS Extremities: no edema Neuro: Cranial nerves: intact Access: R IJ triple lumen bonilla catheter, insertion site covered with gauze Lab and/or Imaging Studies Recent Results (from the past 24 hour(s)) HCG URINE QUAL POCT NOTIFICATION Collection Time: 06/10/20 ??7:40 AM Result Value Ref Range Comment Notification Label Only - See Separate Report ?? HCG URINE QUALITATIVE - POCT (IP) INTERFACED Collection Time: 06/10/20 ??7:42 AM Result Value Ref Range HCG Qual Urine Negative Negative PT-INR [facility] Collection Time: 06/10/20 ??7:56 AM Result Value Ref Range PT 13.6 12.1 - 14.8 Seconds INR 1.1 See Comment TYPE AND SCREEN Collection Time: 06/10/20 10:00 AM Result Value Ref Range Antibody Screen NEG ?? ABO Rh A POS ?? CALCIUM IONIZED WHOLE BLOOD Collection Time: 06/10/20 10:16 AM Result Value Ref Range Ionized Calcium Whole Blood 1.19 mmol/L Adjusted Ionized Calcium 1.16 (L) 1.19 - 1.34 mmol/L pH Whole Blood 7.35 7.35 - 7.45 CBC W AUTO DIFFERENTIAL Collection Time: 06/10/20 10:16 AM Result Value Ref Range WBC 41.6 (H) 3.5 - 10.5 10? 3 /uL RBC 3.81 (L) 3.90 - 5.00 10? 6 /uL Hemoglobin 11.8 (L) 12.0 - 15.5 g/dL Hematocrit 34.9 (L) 35.0 - 45.0 % MCV 91.6 81.0 - 97.0 fL MCH 31.0 28.0 - 34.0 pg MCHC 33.8 32.0 - 36.0 g/dL Platelet Count 241 150 - 400 10? 3 /uL RDW-SD 42.6 36.0 - 50.0 fL RDW-CV 12.9 11.2 - 14.8 % MPV 10.7 9.3 - 12.8 fL nRBC Absolute 0.04 (H) 0 10? 3 /uL nRBC Auto 0.1 (H) 0 /100 WBC FLOW CYTOMETRY CD34 COUNT BLOOD Collection Time: 06/10/20 10:16 AM Result Value Ref Range Reason for test ?Stem cell donor V59.02 Client Specimen ID # ?[id number] Number of Markers 2 ?? Flow Cytometry Results ? Differential Result % Comment Total Viability ??93.2 ?? Lymph/Grant/Gran Region Surface Marker Results % Absolute Count (cell/uL) CD34 0.11 42.648 CD45 91.93 35,642.364 Flow Cytometry Interpretation ?Testing is technical only and does not require an interpretation of results. Disclaimer ?Test performed at [facility], [address] [place] [address], [address]. This test was developed and its performance characteristics determined by the Flow Cytometry Laboratory. It has not been cleared by the [place] Food and Drug Administration (FDA). The FDA has determined that such clearance or approval is not necessary. This test is used for clinical purposes. It should not be regarded as investigational or for research. This laboratory is regulated under the Clinical Laboratory Improvement Amendments of 1998 (CLIA) as a qualified to perform high complexity clinical testing. Embedded Images ?? DIFFERENTIAL MANUAL Collection Time: 06/10/20 10:16 AM Result Value Ref Range WBC (corrected for NRBC) 41.6 10? 3 /uL Total Cell Count 100 ?? Neutrophils Absolute Manual 32.86 (H) 1.60 - 7.00 10? 3 /uL Lymphocyte Absolute 3.33 (H) 0.80 - 2.90 10? 3 /uL Monocytes Absolute 1.66 (H) 0.14 - 0.66 10? 3 /uL Eosinophils Absolute Manual 0.42 (H) 0.00 - 0.22 10? 3 /uL Band % Manual 25 (H) 0 - 10 % Neutrophil % Manual 54 30 - 60 % Lymphocyte % 8 (L) 20 - 45 % Monocytes % Manual 4 2 - 10 % Eosinophils % 1 1 - 6 % Metamyelocyte % Manual 6 (H) 0 % Myelocytes % Manual 2 (H) 0 % Platelet Estimate Adequate Adequate RBC Morphology Normal ?? EKG 12-LEAD Collection Time: 06/10/20 ??2:14 PM Result Value Ref Range Ventricular Rate 122 BPM Atrial Rate 122 BPM P-R Interval 138 ms QRS Duration ms 84 ms Q-T Interval ms 330 ms QTC Calculation (Bezet) 470 ms Calculated P [place] 61 degrees Calculated R [place] 73 degrees Calculated T [place] 15 degrees Interpretation EKG ?SINUS TACHYCARDIA OTHERWISE NORMAL ECG NO PREVIOUS ECGS AVAILABLE CALCIUM IONIZED WHOLE BLOOD Collection Time: 06/10/20 ??5:01 PM Result Value Ref Range Ionized Calcium Whole Blood 1.16 mmol/L Adjusted Ionized Calcium 1.20 1.19 - 1.34 mmol/L pH Whole Blood 7.48 (H) 7.35 - 7.45 Procedures Leukapheresis Assessment and Plan Ashley Hall is a 19 year old female healthy related haplo donor who presents for peripheral blood hematopoietic progenitor collection #1. This is Day 5 of her Neupogen. ??Catheter placement was confirmed per IR note. No changes were noted in Donor History Questionnaire. Donor was stable going into collection. Pre collection Hct and Plt levels were acceptable. Post collection Hct=32.9, Rpv=146 . The donor experienced slowly increasing tachycardia during the collection. EKG was obtained pointing to sinus tachycardia. HR stabilized ~115. The goal for this procedure ??is 6 x 10e6 CD34 cells/kg. Processed volume during procedure was 20,231 mL. Yield of collection was 5.01e79e6 CD34/kg. Goal was reached per Dr Mendoza. Zeferino Dunlap MD, PhD Meeta Henriquez PHOTOVOLTAIC FABRICATION TECHNICIAN-BOARDING KENNEL OR CATTERY OPERATOR LAB - PATHOLOGY/C YTOLOGY ORDERABLES [facility] [address] [phone] * TYPE AND SCREEN (06/10/2020 10:00 AM DIRECTOR MARKET INTELLIGENCE) Only the most recent of3 resultswithin the time period is included. Antibody Screen NEG 11:44 AM DIRECTOR MARKET INTELLIGENCE H BLOOD BANK LAB ABO Rh A POS 06/10/2020 11:44 AM [facility] B[facility] LAB Blood Bank BLOOD SPECIMEN / Unknown Venipuncture / Unknown 06/10/2020 10:00 AM [facility] 06/10/2020 10:45 AM [facility] Gisela [facility] BLOOD BANK LAB - 06/10/2020 5:21 PM Zeferino Dunlap MD ? 06/14/2020 ??3:47 PM Cellular Therapy Collections Progress Note Ashley Hall 06/10/2020 Diagnosis: No diagnosis found. Protocol/Regimen: HPC Mobilization and Collection Interval History: 19 y.o. female healthy allo donor for her mother here for allogeneic hematopoietic progenitor collection #1. She reports mild tenderness around catheter insertion site. No F/C/N/V/D/JOINER/CP/SOB No Known Allergies Current Outpatient Medications Medication Sig Dispense Refill ? ? bacitracin ointment ??28 g 3 ? ? multivitamin daily (THERAGRAN) tablet Take 1 Tab by mouth daily with food. ? mupirocin (BACTROBAN) 2 % ointment Apply to affected area 3 times daily ? sulfamethoxazole-trimethoprim (BACTRIM DS; SEPTRA DS) 800-160 MG tablet Take 1 tablet by mouth 2 times daily ?? No current facility-administered medications for this encounter. ?? Facility-Administered Medications Ordered in Other Encounters Medication Dose Route Frequency Provider Last Rate Last Admin ? ? acetaminophen (TYLENOL) tablet 650 mg ??650 mg Oral q4h PRN Florence, Meeta, PHOTOVOLTAIC FABRICATION TECHNICIAN-BOARDING KENNEL OR CATTERY OPERATOR ? calcium gluconate 5 g in 300 mL NS ??5 g Intravenous PRN Florence, Meeta, PHOTOVOLTAIC FABRICATION TECHNICIAN-BOARDING KENNEL OR CATTERY OPERATOR 100 mL/hr at 06/10/20 1040 5 g at 06/10/20 1040 Physical Exam Constitutional: VS: T=99, P=105, XB=426/93, Os sat=99% RA General Appearance: No acute distress Head: No nasal congestion or discharge Skin: no bruises, or petechiae, erythematous papule with scab in her right axilla Eyes: anicteric: Chest: lungs clear to auscultation Heart: tachy, normal S1 and S2, no murmur Abdomen: soft, non-tender, +BS Extremities: no edema Neuro: Cranial nerves: intact Access: R IJ triple lumen bonilla catheter, insertion site covered with gauze Lab and/or Imaging Studies Recent Results (from the past 24 hour(s)) HCG URINE QUAL POCT NOTIFICATION Collection Time: 06/10/20 ??7:40 AM Result Value Ref Range Comment Notification Label Only - See Separate Report ?? HCG URINE QUALITATIVE - POCT (IP) INTERFACED Collection Time: 06/10/20 ??7:42 AM Result Value Ref Range HCG Qual Urine Negative Negative PT-INR [facility] Collection Time: 06/10/20 ??7:56 AM Result Value Ref Range PT 13.6 12.1 - 14.8 Seconds INR 1.1 See Comment TYPE AND SCREEN Collection Time: 06/10/20 10:00 AM Result Value Ref Range Antibody Screen NEG ?? ABO Rh A POS ?? CALCIUM IONIZED WHOLE BLOOD Collection Time: 06/10/20 10:16 AM Result Value Ref Range Ionized Calcium Whole Blood 1.19 mmol/L Adjusted Ionized Calcium 1.16 (L) 1.19 - 1.34 mmol/L pH Whole Blood 7.35 7.35 - 7.45 CBC W AUTO DIFFERENTIAL Collection Time: 06/10/20 10:16 AM Result Value Ref Range WBC 41.6 (H) 3.5 - 10.5 10? 3 /uL RBC 3.81 (L) 3.90 - 5.00 10? 6 /uL Hemoglobin 11.8 (L) 12.0 - 15.5 g/dL Hematocrit 34.9 (L) 35.0 - 45.0 % MCV 91.6 81.0 - 97.0 fL MCH 31.0 28.0 - 34.0 pg MCHC 33.8 32.0 - 36.0 g/dL Platelet Count 241 150 - 400 10? 3 /uL RDW-SD 42.6 36.0 - 50.0 fL RDW-CV 12.9 11.2 - 14.8 % MPV 10.7 9.3 - 12.8 fL nRBC Absolute 0.04 (H) 0 10? 3 /uL nRBC Auto 0.1 (H) 0 /100 WBC FLOW CYTOMETRY CD34 COUNT BLOOD Collection Time: 06/10/20 10:16 AM Result Value Ref Range Reason for test ?Stem cell donor V59.02 Client Specimen ID # ?[id number] Number of Markers 2 ?? Flow Cytometry Results ? Differential Result % Comment Total Viability ??93.2 ?? Lymph/Grant/Gran Region Surface Marker Results % Absolute Count (cell/uL) CD34 0.11 42.648 CD45 91.93 35,642.364 Flow Cytometry Interpretation ?Testing is technical only and does not require an interpretation of results. Disclaimer ?Test performed at [facility], [address] [place] [address], [id number]. This test was developed and its performance characteristics determined by the Flow Cytometry Laboratory. It has not been cleared by the [place] Food and Drug Administration (FDA). The FDA has determined that such clearance or approval is not necessary. This test is used for clinical purposes. It should not be regarded as investigational or for research. This laboratory is regulated under the Clinical Laboratory Improvement Amendments of 1998 (CLIA) as a qualified to perform high complexity clinical testing. Embedded Images ?? DIFFERENTIAL MANUAL Collection Time: 06/10/20 10:16 AM Result Value Ref Range WBC (corrected for NRBC) 41.6 10? 3 /uL Total Cell Count 100 ?? Neutrophils Absolute Manual 32.86 (H) 1.60 - 7.00 10? 3 /uL Lymphocyte Absolute 3.33 (H) 0.80 - 2.90 10? 3 /uL Monocytes Absolute 1.66 (H) 0.14 - 0.66 10? 3 /uL Eosinophils Absolute Manual 0.42 (H) 0.00 - 0.22 10? 3 /uL Band % Manual 25 (H) 0 - 10 % Neutrophil % Manual 54 30 - 60 % Lymphocyte % 8 (L) 20 - 45 % Monocytes % Manual 4 2 - 10 % Eosinophils % 1 1 - 6 % Metamyelocyte % Manual 6 (H) 0 % Myelocytes % Manual 2 (H) 0 % Platelet Estimate Adequate Adequate RBC Morphology Normal ?? EKG 12-LEAD Collection Time: 06/10/20 ??2:14 PM Result Value Ref Range Ventricular Rate 122 BPM Atrial Rate 122 BPM P-R Interval 138 ms QRS Duration ms 84 ms Q-T Interval ms 330 ms QTC Calculation (Bezet) 470 ms Calculated P [place] 61 degrees Calculated R [place] 73 degrees Calculated T [place] 15 degrees Interpretation EKG ?SINUS TACHYCARDIA OTHERWISE NORMAL ECG NO PREVIOUS ECGS AVAILABLE CALCIUM IONIZED WHOLE BLOOD Collection Time: 06/10/20 ??5:01 PM Result Value Ref Range Ionized Calcium Whole Blood 1.16 mmol/L Adjusted Ionized Calcium 1.20 1.19 - 1.34 mmol/L pH Whole Blood 7.48 (H) 7.35 - 7.45 Procedures Leukapheresis Assessment and Plan Ashley Hall is a 19 year old female healthy related haplo donor who presents for peripheral blood hematopoietic progenitor collection #1. This is Day 5 of her Neupogen. ??Catheter placement was confirmed per IR note. No changes were noted in Donor History Questionnaire. Donor was stable going into collection. Pre collection Hct and Plt levels were acceptable. Post collection Hct=32.9, Jrc=855 . The donor experienced slowly increasing tachycardia during the collection. EKG was obtained pointing to sinus tachycardia. HR stabilized ~115. The goal for this procedure ??is 6 x 10e6 CD34 cells/kg. Processed volume during procedure was 20,231 mL. Yield of collection was 5.56q30o4 CD34/kg. Goal was reached per Dr Mendoza. Zeferino Dunlap MD, PhD Meeta Fofanautt PHOTOVOLTAIC FABRICATION TECHNICIAN-BOARDING KENNEL OR CATTERY OPERATOR LAB - BLOOD BANK ORDERABLES [facility] BLOOD BANK LAB [address] [place] [address], [facility] [phone] * IR CENTRAL LINE INSERT NON TUNNEL (06/10/2020 8:28 AM DIRECTOR MARKET INTELLIGENCE) Anatomical Region Laterality Modality Chest, Upper Extremity X-Ray Ang iography 06/10/2020 2:01 PM DIRECTOR MARKET INTELLIGENCE Impressions 06/10/2020 2:16 PM DIRECTOR MARKET INTELLIGENCE Impression: Successful placement of a triple lumen 13.5 Mexican x 15 cm nontunneled pheresis catheter through the right internal jugular vein under ultrasound and fluoroscopic guidance. I, Quan Paredes, was present and performed/supervised the entire procedure. This report was electronically signed by QUAN PAREDES ??on 06/10/2020 2:16 PM . Narrative 06/10/2020 2:16 PM DIRECTOR MARKET INTELLIGENCE History: 19-year-old female presenting for nontunneled pheresis catheter placement for stem cell donation. Operators: 1.Dr. Paredes, Attending Physician Anesthesia: 1.Local anesthesia - 10 mL of 1% lidocaine 2.Intravenous analgesia - Fentanyl 25 mcg 3.Additional medication - 50 mg Benadryl Procedure: 1.Ultrasound-guided access of the right internal jugular vein. 2.Fluoroscopy-guided placement of a triple lumen 13.5 Mexican x 15 cm nontunneled catheter through the right internal jugular vein. Fluoroscopic time: 0.6 minutes Contrast: None. Procedure in detail: The procedure, risks, and possible complications were explained to the patient in detail, and informed consent was obtained. The patient was placed supine on the procedure table. The right neck was prepped and draped in the usual sterile manner. The patient was administered Benadryl and fentanyl. A qualified radiology nurse monitored the patients vital signs throughout the procedure. Limited ultrasound of the right internal jugular vein demonstrated a patent and compressible vein. A florez scale image was documented. After instillation of 1% local lidocaine, a small incision was made in the right lower neck. Under realtime ultrasound guidance, the right internal jugular vein was accessed with a micropuncture needle. The needle entry was documented. Following a series of exchanges, a 0.035 inch guidewire was advanced through the right atrium into the inferior vena cava. After a series of dilatations, a 13.5 Mexican by 15 cm dialysis catheter was advanced over the wire and positioned with the tip in the right atrium. The ports were accessed, aspirated, and flushed easily. An appropriate amount of heparin (100 units/mL) and was placed in each port as per protocol. The catheter was secured, and sterile dressing was applied. Final fluoroscopic imaging showed a right internal jugular approach tunneled catheter with its tip in the right atrium without any kink along the course of the catheter. The patient tolerated the procedure well and was transferred to the holding area in stable condition. There were no immediate complications associated with the procedure. Procedure Note Quan Paredes MD - 06/10/2020 History: 19-year-old female presenting for nontunneled pheresis catheter placement for stem cell donation. Operators: 1.Dr. Paredes, Attending Physician Anesthesia: 1.Local anesthesia - 10 mL of 1% lidocaine 2.Intravenous analgesia - Fentanyl 25 mcg 3.Additional medication - 50 mg Benadryl Procedure: 1.Ultrasound-guided access of the right internal jugular vein. 2.Fluoroscopy-guided placement of a triple lumen 13.5 Mexican x 15 cm nontunneled catheter through the right internal jugular vein. Fluoroscopic time: 0.6 minutes Contrast: None. Procedure in detail: The procedure, risks, and possible complications were explained to the patient in detail, and informed consent was obtained. The patient was placed supine on the procedure table. The right neck was prepped and draped in the usual sterile manner. The patient was administered Benadryl and fentanyl. A qualifiedradiology nurse monitored the patients vital signs throughout the procedure. Limited ultrasound of the right internal jugular vein demonstrated a patent and compressible vein. A florez scale image was documented. After instillation of 1% local lidocaine, a small incision was made in theright lower neck. Under realtime ultrasound guidance, the right internaljugular vein was accessed with a micropuncture needle. The needle entry was documented. Following a series of exchanges, a 0.035 inch guidewire was advanced through the right atrium into the inferior vena cava. After a series of dilatations, a 13.5 Mexican by 15 cm dialysis catheter was advanced over the wire and positioned with the tip in the right atrium. The ports were accessed, aspirated, and flushed easily. An appropriate amount of heparin (100 units/mL) and was placed in each port as per protocol. The catheter was secured, and sterile dressing was applied. Final fluoroscopic imaging showed a right internal jugular approach tunneled catheter with its tip in the right atrium without any kinkalong the course of the catheter. The patient tolerated the procedure well and was transferred to the holding area in stable condition. There were no immediate complications associated with the procedure. Impression: Successful placement of a triple lumen 13.5 Mexican x 15 cm nontunneled pheresis catheter through the right internal jugular vein under ultrasound and fluoroscopic guidance. I, Quan Paredes, was present and performed/supervised the entireprocedure. This report was electronically signed by QUAN PAREDES on 06/10/2020 2:16 PM. Meeta Fofanautt PHOTOVOLTAIC FABRICATION TECHNICIAN-BOARDING KENNEL OR CATTERY OPERATOR IR ORDERABLES * PT-INR [facility] (06/10/2020 7:56 AM DIRECTOR MARKET INTELLIGENCE) Only the most recent of2 resultswithin the time period is included. PT 13.6 12.1 - 14.8 Seconds 06/10/2020 8:17 AM [facility] INR 1.1 See Comment 06/10/2020 8:17 AM [facility] Comment:The suggested therap eutic range for standard coumadin (warfarin) therapy is an INR of 2.0-3.0. For high-risk patients (Mechanical Mitral Valve Prosthesis, etc.), the suggested prophylactic therapeutic range is an INR of 2.5-3.5. Blood BLOOD SPECIMEN / Unknown Venipuncture / Unknown 06/10/2020 7:56 AM [facility] 06/10/2020 8:09 AM [facility] - 06/10/2020 5:21 PM DIRECTOR MARKET INTELLIGENCE Zeferino Dnulap MD ? 06/14/2020 ??3:47 PM Cellular Therapy Collections Progress Note Ashley Hall 06/10/2020 Diagnosis: No diagnosis found. Protocol/Regimen: HPC Mobilization and Collection Interval History: 19 y.o. female healthy allo donor for her mother here for allogeneic hematopoietic progenitor collection #1. She reports mild tenderness around catheter insertion site. No F/C/N/V/D/JOINER/CP/SOB No Known Allergies Current Outpatient Medications Medication Sig Dispense Refill ? ? bacitracin ointment ??28 g 3 ? ? multivitamin daily (THERAGRAN) tablet Take 1 Tab by mouth daily with food. ? mupirocin (BACTROBAN) 2 % ointment Apply to affected area 3 times daily ? sulfamethoxazole-trimethoprim (BACTRIM DS; SEPTRA DS) 800-160 MG tablet Take 1 tablet by mouth 2 times daily ?? No current facility-administered medications for this encounter. ?? Facility-Administered Medications Ordered in Other Encounters Medication Dose Route Frequency Provider Last Rate Last Admin ? ? acetaminophen (TYLENOL) tablet 650 mg ??650 mg Oral q4h PRN Florence, Meeta, PHOTOVOLTAIC FABRICATION TECHNICIAN-BOARDING KENNEL OR CATTERY OPERATOR ? calcium gluconate 5 g in 300 mL NS ??5 g Intravenous PRN Florence, Meeta, PHOTOVOLTAIC FABRICATION TECHNICIAN-BOARDING KENNEL OR CATTERY OPERATOR 100 mL/hr at 06/10/20 1040 5 g at 06/10/20 1040 Physical Exam Constitutional: VS: T=99, P=105, KO=328/93, Os sat=99% RA General Appearance: No acute distress Head: No nasal congestion or discharge Skin: no bruises, or petechiae, erythematous papule with scab in her right axilla Eyes: anicteric: Chest: lungs clear to auscultation Heart: tachy, normal S1 and S2, no murmur Abdomen: soft, non-tender, +BS Extremities: no edema Neuro: Cranial nerves: intact Access: R IJ triple lumen bonilla catheter, insertion site covered with gauze Lab and/or Imaging Studies Recent Results (from the past 24 hour(s)) HCG URINE QUAL POCT NOTIFICATION Collection Time: 06/10/20 ??7:40 AM Result Value Ref Range Comment Notification Label Only - See Separate Report ?? HCG URINE QUALITATIVE - POCT (IP) INTERFACED Collection Time: 06/10/20 ??7:42 AM Result Value Ref Range HCG Qual Urine Negative Negative PT-INR [facility] Collection Time: 06/10/20 ??7:56 AM Result Value Ref Range PT 13.6 12.1 - 14.8 Seconds INR 1.1 See Comment TYPE AND SCREEN Collection Time: 06/10/20 10:00 AM Result Value Ref Range Antibody Screen NEG ?? ABO Rh A POS ?? CALCIUM IONIZED WHOLE BLOOD Collection Time: 06/10/20 10:16 AM Result Value Ref Range Ionized Calcium Whole Blood 1.19 mmol/L Adjusted Ionized Calcium 1.16 (L) 1.19 - 1.34 mmol/L pH Whole Blood 7.35 7.35 - 7.45 CBC W AUTO DIFFERENTIAL Collection Time: 06/10/20 10:16 AM Result Value Ref Range WBC 41.6 (H) 3.5 - 10.5 10? 3 /uL RBC 3.81 (L) 3.90 - 5.00 10? 6 /uL Hemoglobin 11.8 (L) 12.0 - 15.5 g/dL Hematocrit 34.9 (L) 35.0 - 45.0 % MCV 91.6 81.0 - 97.0 fL MCH 31.0 28.0 - 34.0 pg MCHC 33.8 32.0 - 36.0 g/dL Platelet Count 241 150 - 400 10? 3 /uL RDW-SD 42.6 36.0 - 50.0 fL RDW-CV 12.9 11.2 - 14.8 % MPV 10.7 9.3 - 12.8 fL nRBC Absolute 0.04 (H) 0 10? 3 /uL nRBC Auto 0.1 (H) 0 /100 WBC FLOW CYTOMETRY CD34 COUNT BLOOD Collection Time: 06/10/20 10:16 AM Result Value Ref Range Reason for test ?Stem cell donor V59.02 Client Specimen ID # ?[id number] Number of Markers 2 ?? Flow Cytometry Results ? Differential Result % Comment Total Viability ??93.2 ?? Lymph/Grant/Gran Region Surface Marker Results % Absolute Count (cell/uL) CD34 0.11 42.648 CD45 91.93 35,642.364 Flow Cytometry Interpretation ?Testing is technical only and does not require an interpretation of results. Disclaimer ?Test performed at [facility], [address] [place] [address], [address]. This test was developed and its performance characteristics determined by the Flow Cytometry Laboratory. It has not been cleared by the [place] Food and Drug Administration (FDA). The FDA has determined that such clearance or approval is not necessary. This test is used for clinical purposes. It should not be regarded as investigational or for research. This laboratory is regulated under the Clinical Laboratory Improvement Amendments of 1998 (CLIA) as a qualified to perform high complexity clinical testing. Embedded Images ?? DIFFERENTIAL MANUAL Collection Time: 06/10/20 10:16 AM Result Value Ref Range WBC (corrected for NRBC) 41.6 10? 3 /uL Total Cell Count 100 ?? Neutrophils Absolute Manual 32.86 (H) 1.60 - 7.00 10? 3 /uL Lymphocyte Absolute 3.33 (H) 0.80 - 2.90 10? 3 /uL Monocytes Absolute 1.66 (H) 0.14 - 0.66 10? 3 /uL Eosinophils Absolute Manual 0.42 (H) 0.00 - 0.22 10? 3 /uL Band % Manual 25 (H) 0 - 10 % Neutrophil % Manual 54 30 - 60 % Lymphocyte % 8 (L) 20 - 45 % Monocytes % Manual 4 2 - 10 % Eosinophils % 1 1 - 6 % Metamyelocyte % Manual 6 (H) 0 % Myelocytes % Manual 2 (H) 0 % Platelet Estimate Adequate Adequate RBC Morphology Normal ?? EKG 12-LEAD Collection Time: 06/10/20 ??2:14 PM Result Value Ref Range Ventricular Rate 122 BPM Atrial Rate 122 BPM P-R Interval 138 ms QRS Duration ms 84 ms Q-T Interval ms 330 ms QTC Calculation (Bezet) 470 ms Calculated P [place] 61 degrees Calculated R [place] 73 degrees Calculated T [place] 15 degrees Interpretation EKG ?SINUS TACHYCARDIA OTHERWISE NORMAL ECG NO PREVIOUS ECGS AVAILABLE CALCIUM IONIZED WHOLE BLOOD Collection Time: 06/10/20 ??5:01 PM Result Value Ref Range Ionized Calcium Whole Blood 1.16 mmol/L Adjusted Ionized Calcium 1.20 1.19 - 1.34 mmol/L pH Whole Blood 7.48 (H) 7.35 - 7.45 Procedures Leukapheresis Assessment and Plan Ashley Hall is a 19 year old female healthy related haplo donor who presents for peripheral blood hematopoietic progenitor collection #1. This is Day 5 of her Neupogen. ??Catheter placement was confirmed per IR note. No changes were noted in Donor History Questionnaire. Donor was stable going into collection. Pre collection Hct and Plt levels were acceptable. Post collection Hct=32.9, Yxm=554 . The donor experienced slowly increasing tachycardia during the collection. EKG was obtained pointing to sinus tachycardia. HR stabilized ~115. The goal for this procedure ??is 6 x 10e6 CD34 cells/kg. Processed volume during procedure was 20,231 mL. Yield of collection was 5.68x68z2 CD34/kg. Goal was reached per Dr Mendoza. Zeferino Dunlap MD, PhD Quan Paredes MD LAB - COAGULATION OR DERABLES Performing Organization Address City/State/[facility] Co de Phone Number [facility] [address] [place] [address], [facility] [phone] * HCG URINE QUALITATIVE - POCT (IP) INTERFACED (06/10/2020 7:42 AM DIRECTOR MARKET INTELLIGENCE) HCG Qual Urine Negative Negative 06/10/2020 7:49 AM DIRECTOR MARKET INTELLIGENCE [facility] Urine URINE / Unknown 06/10/2020 7 :42 AM DIRECTOR MARKET INTELLIGENCE 06/10/2020 7:49 AM DIRECTOR MARKET INTELLIGENCE Meeta ARIZMENDI LAB - POINT OF CA RE ORDERABLES [facility] [address] [place] [address], [facility] [phone] * HCG URINE QUAL POCT NOTIFICATION (06/10/2020 7:40 AM DIRECTOR MARKET INTELLIGENCE) Comment Notification Label Only - See Separate Report 06/10/2020 9:00 AM DIRECTOR MARKET INTELLIGENCE [facility] Urine URINE / Unknown 06/10/2020 7 :40 AM DIRECTOR MARKET INTELLIGENCE 06/10/2020 7:40 AM DIRECTOR MARKET INTELLIGENCE Narrative [facility] - 06/10/2020 5:21 PM DIRECTOR MARKET INTELLIGENCE Zeferino Dunlap MD ? 06/14/2020 ??3:47 PM Cellular Therapy Collections Progress Note Ashley Hall 06/10/2020 Diagnosis: No diagnosis found. Protocol/Regimen: HPC Mobilization and Collection Interval History: 19 y.o. female healthy allo donor for her mother here for allogeneic hematopoietic progenitor collection #1. She reports mild tenderness around catheter insertion site. No F/C/N/V/D/JOINER/CP/SOB No Known Allergies Current Outpatient Medications Medication Sig Dispense Refill ? ? bacitracin ointment ??28 g 3 ? ? multivitamin daily (THERAGRAN) tablet Take 1 Tab by mouth daily with food. ? mupirocin (BACTROBAN) 2 % ointment Apply to affected area 3 times daily ? sulfamethoxazole-trimethoprim (BACTRIM DS; SEPTRA DS) 800-160 MG tablet Take 1 tablet by mouth 2 times daily ?? No current facility-administered medications for this encounter. ?? Facility-Administered Medications Ordered in Other Encounters Medication Dose Route Frequency Provider Last Rate Last Admin ? ? acetaminophen (TYLENOL) tablet 650 mg ??650 mg Oral q4h PRN Meeta Henriquez APRN-CNP ? calcium gluconate 5 g in 300 mL NS ??5 g Intravenous PRN Meeta Henriquez APRN-BOARDING KENNEL OR CATTERY OPERATOR 100 mL/hr at 06/10/20 1040 5 g at 06/10/20 1040 Physical Exam Constitutional: VS: T=99, P=105, UZ=980/93, Os sat=99% RA General Appearance: No acute distress Head: No nasal congestion or discharge Skin: no bruises, or petechiae, erythematous papule with scab in her right axilla Eyes: anicteric: Chest: lungs clear to auscultation Heart: tachy, normal S1 and S2, no murmur Abdomen: soft, non-tender, +BS Extremities: no edema Neuro: Cranial nerves: intact Access: R IJ triple lumen bonilla catheter, insertion site covered with gauze Lab and/or Imaging Studies Recent Results (from the past 24 hour(s)) HCG URINE QUAL POCT NOTIFICATION Collection Time: 06/10/20 ??7:40 AM Result Value Ref Range Comment Notification Label Only - See Separate Report ?? HCG URINE QUALITATIVE - POCT (IP) INTERFACED Collection Time: 06/10/20 ??7:42 AM Result Value Ref Range HCG Qual Urine Negative Negative PT-INR [facility] Collection Time: 06/10/20 ??7:56 AM Result Value Ref Range PT 13.6 12.1 - 14.8 Seconds INR 1.1 See Comment TYPE AND SCREEN Collection Time: 06/10/20 10:00 AM Result Value Ref Range Antibody Screen NEG ?? ABO Rh A POS ?? CALCIUM IONIZED WHOLE BLOOD Collection Time: 06/10/20 10:16 AM Result Value Ref Range Ionized Calcium Whole Blood 1.19 mmol/L Adjusted Ionized Calcium 1.16 (L) 1.19 - 1.34 mmol/L pH Whole Blood 7.35 7.35 - 7.45 CBC W AUTO DIFFERENTIAL Collection Time: 06/10/20 10:16 AM Result Value Ref Range WBC 41.6 (H) 3.5 - 10.5 10? 3 /uL RBC 3.81 (L) 3.90 - 5.00 10? 6 /uL Hemoglobin 11.8 (L) 12.0 - 15.5 g/dL Hematocrit 34.9 (L) 35.0 - 45.0 % MCV 91.6 81.0 - 97.0 fL MCH 31.0 28.0 - 34.0 pg MCHC 33.8 32.0 - 36.0 g/dL Platelet Count 241 150 - 400 10? 3 /uL RDW-SD 42.6 36.0 - 50.0 fL RDW-CV 12.9 11.2 - 14.8 % MPV 10.7 9.3 - 12.8 fL nRBC Absolute 0.04 (H) 0 10? 3 /uL nRBC Auto 0.1 (H) 0 /100 WBC FLOW CYTOMETRY CD34 COUNT BLOOD Collection Time: 06/10/20 10:16 AM Result Value Ref Range Reason for test ?Stem cell donor V59.02 Client Specimen ID # ?[id number] Number of Markers 2 ?? Flow Cytometry Results ? Differential Result % Comment Total Viability ??93.2 ?? Lymph/Grant/Gran Region Surface Marker Results % Absolute Count (cell/uL) CD34 0.11 42.648 CD45 91.93 35,642.364 Flow Cytometry Interpretation ?Testing is technical only and does not require an interpretation of results. Disclaimer ?Test performed at [facility], [address] [place] [address], [address]. This test was developed and its performance characteristics determined by the Flow Cytometry Laboratory. It has not been cleared by the [place] Food and Drug Administration (FDA). The FDA has determined that such clearance or approval is not necessary. This test is used for clinical purposes. It should not be regarded as investigational or for research. This laboratory is regulated under the Clinical Laboratory Improvement Amendments of 1998 (CLIA) as a qualified to perform high complexity clinical testing. Embedded Images ?? DIFFERENTIAL MANUAL Collection Time: 06/10/20 10:16 AM Result Value Ref Range WBC (corrected for NRBC) 41.6 10? 3 /uL Total Cell Count 100 ?? Neutrophils Absolute Manual 32.86 (H) 1.60 - 7.00 10? 3 /uL Lymphocyte Absolute 3.33 (H) 0.80 - 2.90 10? 3 /uL Monocytes Absolute 1.66 (H) 0.14 - 0.66 10? 3 /uL Eosinophils Absolute Manual 0.42 (H) 0.00 - 0.22 10? 3 /uL Band % Manual 25 (H) 0 - 10 % Neutrophil % Manual 54 30 - 60 % Lymphocyte % 8 (L) 20 - 45 % Monocytes % Manual 4 2 - 10 % Eosinophils % 1 1 - 6 % Metamyelocyte % Manual 6 (H) 0 % Myelocytes % Manual 2 (H) 0 % Platelet Estimate Adequate Adequate RBC Morphology Normal ?? EKG 12-LEAD Collection Time: 06/10/20 ??2:14 PM Result Value Ref Range Ventricular Rate 122 BPM Atrial Rate 122 BPM P-R Interval 138 ms QRS Duration ms 84 ms Q-T Interval ms 330 ms QTC Calculation (Bezet) 470 ms Calculated P [place] 61 degrees Calculated R [place] 73 degrees Calculated T [place] 15 degrees Interpretation EKG ?SINUS TACHYCARDIA OTHERWISE NORMAL ECG NO PREVIOUS ECGS AVAILABLE CALCIUM IONIZED WHOLE BLOOD Collection Time: 06/10/20 ??5:01 PM Result Value Ref Range Ionized Calcium Whole Blood 1.16 mmol/L Adjusted Ionized Calcium 1.20 1.19 - 1.34 mmol/L pH Whole Blood 7.48 (H) 7.35 - 7.45 Procedures Leukapheresis Assessment and Plan Ashley Hall is a 19 year old female healthy related haplo donor who presents for peripheral blood hematopoietic progenitor collection #1. This is Day 5 of her Neupogen. ??Catheter placement was confirmed per IR note. No changes were noted in Donor History Questionnaire. Donor was stable going into collection. Pre collection Hct and Plt levels were acceptable. Post collection Hct=32.9, Gvz=612 . The donor experienced slowly increasing tachycardia during the collection. EKG was obtained pointing to sinus tachycardia. HR stabilized ~115. The goal for this procedure ??is 6 x 10e6 CD34 cells/kg. Processed volume during procedure was 20,231 mL. Yield of collection was [id number] CD34/kg. Goal was reached per Dr Mendoza. Zeferino Dunlap MD, PhD Meeta Henriquez PHOTOVOLTAIC FABRICATION TECHNICIAN-BOARDING KENNEL OR CATTERY OPERATOR LAB - URINALYSIS ORDERABLES Performing Organization Address [facility] Co de Phone Number [address] [address] [phone] * URINALYSIS REFLEX TO MICROSCOPIC NO CULTURE (06/07/2020 12:33 PM DIRECTOR MARKET INTELLIGENCE) Color UA Straw Straw, Yellow, Colorless 06/07/2020 1:28 PM [facility] Clarity UA Clear Clear, Slt Cloudy 06/07/2020 1:28 PM DIRECTOR MARKET INTELLIGENCE [facility] Specific [place] UA 1.008 1.005 - 1.030 06/07/2020 1:28 PM DIRECTOR MARKET INTELLIGENCE [facility] pH UA 6.0 5.0 - 8.0 pH 06/07/2020 1:28 PM [facility] Protein UA Negative Negative mg/dL 06/07/2020 1:28 PM [facility] Glucose UA Negative Negative mg/dL 06/07/2020 1:28 PM [facility] Ketone UA Negative Negative mg/dL 06/07/2020 1:28 PM [facility] Bilirubin UA Negative Negative mg/dL 06/07/2020 1:28 PM [facility] Blood UA Negative Negative 06/07/2020 1:28 PM [facility] Nitrite UA Negative Negative 06/07/2020 1:28 PM [facility] [facility] Leukocyte Esterase Negative Negative 06/07/2020 1:28 PM [facility] Urobilinogen UA Negative Negative mg/dL 06/07/2020 1:28 PM [facility] RBC UA 3-5 None Seen, 0-2, 3-5 /HPF 06/07/2020 1:28 PM [facility] WBC UA 0-5 None Seen, 0-5 /HPF 06/07/2020 1:28 PM [facility] Bacteria UA Trace None, Trace /HPF 06/07/2020 1:28 PM [facility] Squamous Epithelial Cells UA 0-2 None Seen, 0-2 /HPF 06/07/2020 1:28 PM [facility] Mucus UA 1+ None, 1+ /LPF 06/07/2020 1:28 PM [facility] Urine URINE SPECIMEN OBTAINED BY CLEAN CATCH PROCEDURE / Unknown Collection / Unknown 06/07/2020 12:33 PM DIRECTOR MARKET INTELLIGENCE 06/07/2020 12:51 PM DIRECTOR MARKET INTELLIGENCE [facility] - 06/07/2020 1:28 PM DIRECTOR MARKET INTELLIGENCE Debbie ARIZMENDI LAB - URINALYSIS O RDERABLES [facility] [address] [place] [address], [facility] [phone] * CULTURE URINE (06/07/2020 12:33 PM DIRECTOR MARKET INTELLIGENCE) Only the most recent of2 resultswithin the time period is included. Culture Urine <10,000 CFU/mL urogenital mark JESSEE 06/09/2020 7:21 AM DIRECTOR MARKET INTELLIGENCE [facility] Urine URINE SPECIMEN OBTAINED BY CLEAN CATCH PROCEDURE / Unknown Collection / Unknown 06/07/2020 12:33 PM DIRECTOR MARKET INTELLIGENCE 06/07/2020 1:09 PM DIRECTOR MARKET INTELLIGENCE Debbie Patel APRN-BOARDING KENNEL OR CATTERY OPERATOR LAB - MICROBIOLOGY ORDERABLES [facility] [address] [place] [address], [facility] [phone] * SARS-COV-2 (COVID-19) PRE-SURGICAL/PROCEDURE (06/04/2020 10:50 AM DIRECTOR MARKET INTELLIGENCE) Pathologist [facility] COVID-19 PCR Not detected Not detected 06/04/2020 5:03 PM DIRECTOR MARKET INTELLIGENCE [facility] Microbiology SPECIMEN FROM NASOPHARYNGEAL STRUCTURE / Unknown Collection / Unknown 06/04/2020 10:50 AM DIRECTOR MARKET INTELLIGENCE 06/04/2020 11:36 AM DIRECTOR MARKET INTELLIGENCE Narrative [facility] - 06/04/2020 5:03 PM DIRECTOR MARKET INTELLIGENCE This nucleic acid amplification assay performance was validated by [facility]. This test has been authorized by the Food and Drug administration (FDA)under an Emergency??Use Authorization (EUA). This test has been validated in accordance with the FDA's guidance document Policy for Diagnostic Testing in Laboratories Certified to perform High Complexity Testing under CLIA prior to Emergency Use Authorization for Coronavirus Disease-2019 during the Public Health Emergency issued on August 02, 2019. FDA independent review of this validation is pending. This test is only authorized for the duration of time the declaration that circumstances exist justifying the authorization of emergency use of in vitro diagnostic tests for detection of SARS-CoV-2 virus and/or diagnosis of COVID-19 infection under section 564(b)(1) of the Act, 21 U.S.C 360bbb-3 (b)(1), unless the authorization is terminated or revoked sooner. Fact Sheets for this EUA assay are available upon request. Meeta Henriquez APRN-BOARDING KENNEL OR CATTERY OPERATOR LAB - MICROBIOLOG Y ORDERABLES [facility] [address] [place] [address], [facility] [phone] * HCG URINE QUALITATIVE (06/04/2020 10:50 AM DIRECTOR MARKET INTELLIGENCE) Pathologist [facility] Test Urine Negative Negative 06/04/2020 11:45 AM DIRECTOR MARKET INTELLIGENCE [facility] Urine URINE / Unknown Collection / Unknown 06/04/2020 10:50 AM DIRECTOR MARKET INTELLIGENCE 06/04/2020 11:33 AM DIRECTOR MARKET INTELLIGENCE Meeta Fofanautt [facility] - URINALYSIS ORDERABLES Performing Organization Address City/[facility]/ZIP Co de Phone Number [facility] [address] [place] [address], [place] [phone] * QUANTIFERON-TB GOLD PLUS 4-TUBE (05/26/2020 1:00 PM DIRECTOR MARKET INTELLIGENCE) [facility] QuantiFERON NIL 0.02 IU/mL 0 11:53 PM DIRECTOR MARKET INTELLIGENCE [employer] ([facility]) Comment: Performed By: [employer] [address] [place] [id number] Top Inventory Control Executive: Maribell Fragoso MD QuantiFERON TB Gold Plus Negative Negative 05/28/2020 11:53 PM DIRECTOR MARKET INTELLIGENCE [employer] ([facility]) Comment: Interpretive Data: Quantiferon TB Gold Plus Interferon gamma release is measured for specimens from each of the four collection tubes. A qualitative result (Negative, Positive, or Indeterminate) is based on interpretation of the four values, NIL, MITOGEN minus NIL (MITOGEN-NIL), TB1 minus NIL (TB1-NIL), and TB2 minus NIL (TB2-NIL). The NIL value represents nonspecific reactivity produced by the patient specimen. The MITOGEN-NIL value serves as the positive control for the patient specimen, demonstrating successful lymphocyte activity. The TB1-NIL tube specifically detects CD4+ lymphocyte reactivity, specifically stimulated by the TB1 antigens. The TB2-NIL tube detects both CD4+ and CD8+ lymphocyte reactivity, stimulated by TB2 antigens. An overall Negative result does not completely rule out TB infection. A false-positive result in the absence of other clinical evidence of TB infection is not uncommon. Refer to: Updated Guidelines for Using Interferon Gamma Release Assays to Detect Mycobacterium tuberculosis Infection --- [place], 2010 (http://www.cdc.gov/mmwr/preview/mmwrhtml/be3859p9.htm), for more information concerning test performance in low-prevalence populations and use in occupational screening. QuantiFERON Plus TB1 Minus NIL 0.01 0.00 - 0.34 IU/mL 05/28/2020 11:53 PM DIRECTOR MARKET INTELLIGENCE COUNTS INCLUDE 234 BEDS AT THE [facility] ([facility]) QuantiFERON Plus TB2 Minus NIL 0.01 0.00 - 0.34 IU/mL 05/28/2020 11:53 PM DIRECTOR MARKET INTELLIGENCE COUNTS INCLUDE 234 BEDS AT THE [facility] ([facility]) QuantiFERON Mitogen Minus NIL 9.03 IU/mL 05/28/2020 11:53 PM DIRECTOR MARKET INTELLIGENCE [facility]) Blood BLOOD SPECIMEN / Unknown Venipuncture / Unknown 05/26/2020 1:00 PM DIRECTOR MARKET INTELLIGENCE 05/26/2020 1:17 PM DIRECTOR MARKET INTELLIGENCE Meeta Henriquez PHOTOVOLTAIC FABRICATION TECHNICIAN-BOARDING KENNEL OR CATTERY OPERATOR LAB - CHEMISTRY O RDERABLES [facility]) [address] * (ABNORMAL) URINALYSIS W/MICROSCOPIC NO CULTURE (05/21/2020 1:30 PM DIRECTOR MARKET INTELLIGENCE) Only the most recent of2 resultswithin the time period is included. Color UA Yellow Straw, Yellow, Colorless 05/21/2020 2:04 PM [facility] Clarity UA Clear Clear, Slt Cloudy 05/21/2020 2:04 PM [facility] Specific [place] UA 1.020 1.005 - 1.030 05/21/2020 2:04 PM [facility] pH UA 6.0 5.0 - 8.0 pH 05/21/2020 2:04 PM [facility] Protein UA Negative Negative mg/dL 05/21/2020 2:04 PM [facility] Glucose UA Negative Negative mg/dL 05/21/2020 2:04 PM [facility] Ketone UA Negative Negative mg/dL 05/21/2020 2:04 PM [facility] Bilirubin UA Negative Negative mg/dL 05/21/2020 2:04 PM DIRECTOR MARKET INTELLIGENCE [facility] Blood UA Negative Negative 05/21/2020 2:04 PM [facility] Nitrite UA Negative Negative 05/21/2020 2:04 PM [facility] Leukocyte Esterase 2+(A) Negative 05/21/2020 2:04 PM [facility] Urobilinogen UA Negative Negative mg/dL 05/21/2020 2:04 PM [facility] RBC UA 0-2 None Seen, 0-2, 3-5 /HPF 05/21/2020 2:04 PM [facility] WBC UA 0-5 None Seen, 0-5 /HPF 05/21/2020 2:04 PM [facility] Bacteria UA 1+(A) None, Trace /HPF 05/21/2020 2:04 PM [facility] Squamous Epithelial Cells UA 3-5(A) None Seen, 0-2 /HPF 05/21/2020 2:04 PM DIRECTOR MARKET INTELLIGENCE [facility] Mucus UA 1+ None, 1+ /LPF 05/21/2020 2:04 PM [facility] Urine URINE SPECIMEN OBTAINED BY CLEAN CATCH PROCEDURE / Unknown Collection / Unknown 05/21/2020 1:30 PM DIRECTOR MARKET INTELLIGENCE 05/21/2020 1:45 PM DIRECTOR MARKET INTELLIGENCE [facility] - 05/21/2020 2:04 PM DIRECTOR MARKET INTELLIGENCE Meeta Henriquez PHOTOVOLTAIC FABRICATION TECHNICIAN-BOARDING KENNEL OR CATTERY OPERATOR LAB - URINALYSIS ORDERABLES Performing Organization Address [facility]/State/ZIP Co de Phone Number [facility] [address] [place] [phone], [facility] [phone] * HERPES SIMPLEX 1+2 PCR (05/21/2020 1:30 PM DIRECTOR MARKET INTELLIGENCE) Herpes Simplex Virus PCR Not Detected 05/26/2020 6:13 AM DIRECTOR MARKET INTELLIGENCE [employer] ([facility]) Comment: NOT DETECTED - A negative result does not rule out the presence of PCR inhibitors in the patient specimen or assay specific nucleic acid in concentrations below the level of detection by the assay. INTERPRETIVE INFORMATION: Herpes Simplex Virus by PCR Test developed and characteristics determined by [employer]. See Compliance Statement B: [employer]CS Performed by [employer], [address] [place] [id number] [email or web address], Maribell Fragoso MD, Lab. Director Source Blood 05/26/2020 6:13 AM DIRECTOR MARKET INTELLIGENCE [facility] ([facility]) Blood BLOOD SPECIMEN / Unknown Venipuncture / Unknown 05/21/2020 1:30 PM DIRECTOR MARKET INTELLIGENCE 05/21/2020 2:30 PM DIRECTOR MARKET INTELLIGENCE Meeta Henriquez PHOTOVOLTAIC FABRICATION TECHNICIAN-BOARDING KENNEL OR CATTERY OPERATOR LAB - MICROBIOLOG Y ORDERABLES [facility] ([facility]) [address] * HLA TYPING LOW/HIGH RESOLUTION DPB1 (05/14/2020 4:10 PM DIRECTOR MARKET INTELLIGENCE) Only the most recent of2 resultswithin the time period is included. Typ DNA LR DPB1 Allele #1 *04 11/11/2020 10:20 AM CDT [facility] ([facility]) Typ DNA LR DPB1 Allele #2 - 11/11/2020 10:20 AM CDT [facility] ([facility]) Typ DNA HR DPB1 Allele #1 *04:01 11/11/2020 10:20 AM CDT [facility] ([facility]) Typ DNA HR DPB1 Allele #2 - 11/11/2020 10:20 AM CDT [facility] ([facility]) Test Methodology RTPCR/SSP 11/12/19 10:20 AM [facility] HLA Result Comment PREDICTED IMMUNOGENICI TY:PERMISSIV E 11/11/2020 10:20 AM CDT [facility] ([facility]) Date Results Entered 05/19/2020 11/11/2020 10:20 AM CDT [facility] ([facility]) Comment: This test was developed and its performance characteristics determined by the [facility]. ??It has not been cleared or approved by the U.S. Food and Drug Administration. ??The FDA has determined that such clearance or approval is not necessary. ??This test is used for clinical purposes. ??It should not be regarded as investigational or for research. This laboratory is certified under the Clinical Laboratory Improvement Amendments of 1988 (CLIA-88) as qualified to perform high complexity clinical laboratory testing. Performed at: ??[facility], [address] @ [place], [place] ??[phone] Speech And Language Assistant: Montana Siddiqui MD, Blood BLOOD SPECIMEN / Unknown Lab Venipuncture / Unknown 05/14/2020 4:10 PM DIRECTOR MARKET INTELLIGENCE 05/14/2020 4:10 PM DIRECTOR MARKET INTELLIGENCE Jhonny West MD LAB - BLOOD BANK O RDERABLES [facility] ([facility]) [address] [place] [address], [facility] * HLA TYPING DNA LOW RESOLUTION DR,DQ (05/14/2020 4:10 PM DIRECTOR MARKET INTELLIGENCE) Only the most recent of2 resultswithin the time period is included. DR DQ Low Resolution DRB1-1 *04 11/11/2020 10:19 AM CDT [facility] ([facility]) DR DQ Low Resolution DRB1-2 - 11/11/2020 10:19 AM CDT [facility] ([facility]) DR DQ Low Resolution DQB1-1 *03 11/11/2020 10:19 AM CDT [facility] ([facility]) DR DQ Low Resolution DQB1-2 - 11/11/2020 10:19 AM CDT [facility] ([facility]) DR DQ Low Resolution DRB3-1 Negative 11/11/2020 10:19 AM CDT [facility] ([facility]) DR DQ Low Resolution DRB3-2 Negative 11/11/2020 10:19 AM CDT [facility] ([facility]) DR DQ Low Resolution DRB4-1 *01 11/11/2020 10:19 AM CDT [facility] ([facility]) DR DQ Low Resolution DRB4-2 Negative 11/11/2020 10:19 AM CDT [facility] ([facility]) DR DQ Low Resolution DRB5-1 Negative 11/11/2020 10:19 AM CDT [facility] ([facility]) DR DQ Low Resolution DRB5-2 Negative 11/11/2020 10:19 AM CDT [facility] ([facility]) DR DQ Low Resolution Methodology Real Time PCR 11/11/2020 10:19 AM [facility] ([facility]) Comment DR DQ Low Resolution - 11/11/2020 10:19 AM [facility] ([facility]) DR DQ Low Resolution test date 05/19/2020 11/11/2020 10:19 AM [facility] ([facility]) Comment: This test was developed and its performance characteristics determined by the [facility]. ??It has not been cleared or approved by the U.S. Food and Drug Administration. ??The FDA has determined that such clearance or approval is not necessary. ??This test is used for clinical purposes. ??It should not be regarded as investigational or for research. This laboratory is certified under the Clinical Laboratory Improvement Amendments of 1988 (CLIA-88) as qualified to perform high complexity clinical laboratory testing. ??CLIA ID# [id number] Performed at: ??[facility], [address] @ [place], [place] ??[phone] Speech And Language Assistant: Montana Siddiqui MD, Blood BLOOD SPECIMEN / Unknown Lab Venipuncture / Unknown 05/14/2020 4:10 PM DIRECTOR MARKET INTELLIGENCE 05/14/2020 4:10 PM DIRECTOR MARKET INTELLIGENCE Jhonny West MD LAB - BLOOD BANK O RDERABLES [facility] ([facility]) [address] [place] [address], [facility] * HLA TYPING DNA LOW RESOLUTION A,B,C (05/14/2020 4:10 PM DIRECTOR MARKET INTELLIGENCE) Only the most recent of2 resultswithin the time period is included. ABC DNA A1 *03 11/11/2020 10:19 AM CDT [facility] ([facility]) ABC DNA A2 *31 11/11/2020 10:19 AM [facility] ABC DNA B1 *15 11/11/2020 10:19 AM [facility] ([facility]) ABC DNA B2 *27 11/11/2020 10:19 AM CDT [facility] ([facility]) ABC DNA BW1 6 11/11/2020 10:19 AM CDT [facility] ([facility]) ABC DNA BW2 4 11/11/2020 10:19 AM CDT [facility] ([facility]) ABC DNA C1 *02 11/11/2020 10:19 AM CDT [facility] ([facility]) ABC DNA C2 *03 11/11/2020 10:19 AM CDT [facility] ([facility]) ABC DNA Methodology Real Time PCR 11/11/2020 10:19 AM CDT [facility] ([facility]) Comment ABC DNA - 1 10:19 AM CDT [facility] ([facility]) ABC DNA Test Date 0 11/11/2020 10:19 AM CDT [facility] ([facility]) Comment: This test was developed and its performance characteristics determined by the [facility]. ??It has not been cleared or approved by the U.S. Food and Drug Administration. ??The FDA has determined that such clearance or approval is not necessary. ??This test is used for clinical purposes. ??It should not be regarded as investigational or for research. This laboratory is certified under the Clinical Laboratory Improvement Amendments of 1988 (CLIA-88) as qualified to perform high complexity clinical laboratory testing. ??CLIA ID# [id number] Performed at: ??[facility], [address] @ [place], [place] ??[phone] Speech And Language Assistant: Montana Siddiqui MD, Blood BLOOD SPECIMEN / Unknown Lab Venipuncture / Unknown 05/14/2020 4:10 PM DIRECTOR MARKET INTELLIGENCE 05/14/2020 4:10 PM DIRECTOR MARKET INTELLIGENCE Jhonny West MD LAB - BLOOD BANK O RDERABLES [facility] ([facility]) [address] [place] [address], [facility] * HLA TYPING DNA HIGH RESOLUTION DR (05/14/2020 4:10 PM DIRECTOR MARKET INTELLIGENCE) Only the most recent of2 resultswithin the time period is included. DR Locus DRB1-1 *04:01 1 10:19 AM CDT [facility] ([facility]) DR DQ Low Resolution DRB1-2 - 11/11/2020 10:19 AM CDT [facility] ([facility]) DR Locus Test Method SSP 11/11/2020 10:19 AM CDT [facility] ([facility]) Comment DR Locus - 11/12/19 21 10:19 AM CDT [facility] ([facility]) DR Locus Test Date 0 11/11/2020 10:19 AM CDT [facility] ([facility]) Comment: This test was developed and its performance characteristics determined by the [facility]. ??It has not been cleared or approved by the U.S. Food and Drug Administration. ??The FDA has determined that such clearance or approval is not necessary. ??This test is used for clinical purposes. ??It should not be regarded as investigational or for research. This laboratory is certified under the Clinical Laboratory Improvement Amendments of 1988 (CLIA-88) as qualified to perform high complexity clinical laboratory testing. ??CLIA ID# [id number] Performed at: ??[facility], [address] @ [place], [place] ??[phone] Speech And Language Assistant: Montana Siddiqui MD, Blood BLOOD SPECIMEN / Unknown Lab Venipuncture / Unknown 05/14/2020 4:10 PM DIRECTOR MARKET INTELLIGENCE 05/14/2020 4:10 PM DIRECTOR MARKET INTELLIGENCE Jhonny West MD LAB - BLOOD BANK O RDERABLES [facility] ([facility]) [address] [place] [address], [facility] * PTT [facility] (05/14/2020 3:19 PM DIRECTOR MARKET INTELLIGENCE) Pathologist [facility] APTT 32.1 23.0 - 38.4 Seconds 05/14/2020 4:06 PM DIRECTOR MARKET INTELLIGENCE [facility] Comment:Suggested therapeuti c range for full dose I.V. unfractionated heparin therapy for venous thromboembolism is 71 to 109 seconds. Blood BLOOD SPECIMEN / Unknown Venipuncture / Unknown 05/14/2020 3:19 PM DIRECTOR MARKET INTELLIGENCE 05/14/2020 3:57 PM DIRECTOR MARKET INTELLIGENCE Meeta Florence [facility] - COAGUL[facility] ORDERABLES Performing Organization Address City/[facility]/ZIP Co de Phone Number [facility] [address] [place] [address], [facility] [phone] * PRE-TRANSPLANT ENGRAFT (05/14/2020 3:19 PM DIRECTOR MARKET INTELLIGENCE) Blood BLOOD SPECIMEN / Unknown Venipuncture / Unknown 05/14/2020 3:19 PM DIRECTOR MARKET INTELLIGENCE 05/14/2020 3:44 PM DIRECTOR MARKET INTELLIGENCE Meeta Florence [facility] - CHEMISTRY O RDERABLES Performing Organization Address City/[facility]/ZIP Co de Phone Number [facility] ([facility]) [address] [place] [address] * HLA TYPING DNA HIGH RESOLUTION DQ (05/14/2020 3:19 PM DIRECTOR MARKET INTELLIGENCE) Only the most recent of2 resultswithin the time period is included. DR DQ Low Resolution DQB1-1 *03:01 11/11/2020 10:19 AM CDT [facility] ([facility]) DR DQ Low Resolution DQB1-2 *03:02 11/11/2020 10:19 AM CDT [facility] ([facility]) DQ Locus Methodology SSP 11/11/2020 10:19 AM T [facility] ([facility]) Comment DQ Locus - 11/12/19 21 10:19 AM CDT [facility] ([facility]) DQ Locus Test Date 0 11/11/2020 10:19 AM CDT [facility] ([facility]) Comment: This test was developed and its performance characteristics determined by the [facility]. ??It has not been cleared or approved by the U.S. Food and Drug Administration. ??The FDA has determined that such clearance or approval is not necessary. ??This test is used for clinical purposes. ??It should not be regarded as investigational or for research. This laboratory is certified under the Clinical Laboratory Improvement Amendments of 1988 (CLIA-88) as qualified to perform high complexity clinical laboratory testing. ??CLIA ID# [id number] Performed at: ??[facility], [address] @ [place], [place] ??[address] Speech And Language Assistant: [place] Siddiqui MD, Blood BLOOD SPECIMEN / Unknown Venipuncture / Unknown 05/14/2020 3:19 PM DIRECTOR MARKET INTELLIGENCE 05/14/2020 3:44 PM DIRECTOR MARKET INTELLIGENCE Meeta Henriquez PHOTOVOLTAIC FABRICATION TECHNICIAN-BOARDING KENNEL OR CATTERY OPERATOR LAB - BLOOD BANK ORDERABLES [facility] ([facility]) [address] [place] [address], [facility] * HLA TYPING DNA HIGH RESOLUTION B (05/14/2020 3:19 PM DIRECTOR MARKET INTELLIGENCE) Only the most recent of2 resultswithin the time period is included. HLA B Locus B-1 *15:01 1 10:19 AM CDT [facility] ([facility]) HLA B Locus Bw-1 6 11/12/19 21 10:19 AM CDT [facility] ([facility]) HLA B Locus B-2 *27:05 1 10:19 AM CDT [facility] ([facility]) HLA B Locus Bw-2 4 11/12/19 21 10:19 AM CDT [facility] ([facility]) HLA B Locus Methodology SSP 11/11/2020 10:19 AM CDT [facility] ([facility]) Comment HLA B Locus - 11/11 10:19 AM CDT [facility] ([facility]) HLA B Locus Test Date 0 11/11/2020 10:19 AM CDT [facility] ([facility]) Comment: This test was developed and its performance characteristics determined by the [facility]. ??It has not been cleared or approved by the U.S. Food and Drug Administration. ??The FDA has determined that such clearance or approval is not necessary. ??This test is used for clinical purposes. ??It should not be regarded as investigational or for research. This laboratory is certified under the Clinical Laboratory Improvement Amendments of 1988 (CLIA-88) as qualified to perform high complexity clinical laboratory testing. ??CLIA ID# [id number] Performed at: ??[facility], [address] @ [place], [place] ??[address] Speech And Language Assistant: [place] Siddiqui MD, Blood BLOOD SPECIMEN / Unknown Venipuncture / Unknown 05/14/2020 3:19 PM DIRECTOR MARKET INTELLIGENCE 05/14/2020 3:44 PM DIRECTOR MARKET INTELLIGENCE Meeta Henriquez PHOTOVOLTAIC FABRICATION TECHNICIAN-BOARDING KENNEL OR CATTERY OPERATOR LAB - BLOOD BANK ORDERABLES [facility] ([facility]) [address] [place] [address], [facility] * HLA TYPING DNA HIGH RESOLUTION A (05/14/2020 3:19 PM DIRECTOR MARKET INTELLIGENCE) Only the most recent of2 resultswithin the time period is included. A Locus HR A1 *03:01 11/11/2020 10:19 AM CDT [facility] ([facility]) A Locus HR A2 *31:01 11/11/2020 10:19 AM CDT [facility] ([facility]) A Locus HR Methodology SSP 11/11/2020 10:19 AM CDT [facility] ([facility]) Comment A Locus HR - 2020 10:19 AM CDT [facility] ([facility]) A Locus Test Date 0 11/11/2020 10:19 AM [facility] ([facility]) Comment: This test was developed and its performance characteristics determined by the [facility]. ??It has not been cleared or approved by the U.S. Food and Drug Administration. ??The FDA has determined that such clearance or approval is not necessary. ??This test is used for clinical purposes. ??It should not be regarded as investigational or for research. This laboratory is certified under the Clinical Laboratory Improvement Amendments of 1988 (CLIA-88) as qualified to perform high complexity clinical laboratory testing. ??CLIA ID# [id number] Performed at: ??[facility], [address] @ [place], [place] ??[address] Speech And Language Assistant: [place] Siddiqui MD, Blood BLOOD SPECIMEN / Unknown Venipuncture / Unknown 05/14/2020 3:19 PM DIRECTOR MARKET INTELLIGENCE 05/14/2020 3:44 PM DIRECTOR MARKET INTELLIGENCE Meeta Henriquez PHOTOVOLTAIC FABRICATION TECHNICIAN-BOARDING KENNEL OR CATTERY OPERATOR LAB - BLOOD BANK ORDERABLES [facility] ([facility]) [address] [place] [address], [place] * HLA TYPING DNA HIGH RESOLUTION C (05/14/2020 3:19 PM DIRECTOR MARKET INTELLIGENCE) Only the most recent of2 resultswithin the time period is included. C Locus C1 *02:02 11/11/2020 10:19 AM [facility] C Locus C2 *03:03 11/11/2020 10:19 AM [facility] ([facility]) Test Method SSP 11/11/2020 10:19 AM [facility] ([facility]) Comment C Locus - 10:19 AM [facility] ([facility]) C Locus Test Date 0 11/11/2020 10:19 AM [facility] ([facility]) Comment: This test was developed and its performance characteristics determined by the [facility]. ??It has not been cleared or approved by the U.S. Food and Drug Administration. ??The FDA has determined that such clearance or approval is not necessary. ??This test is used for clinical purposes. ??It should not be regarded as investigational or for research. This laboratory is certified under the Clinical Laboratory Improvement Amendments of 1988 (CLIA-88) as qualified to perform high complexity clinical laboratory testing. ??CLIA ID# [id number] Performed at: ??[facility], [address] @ [place], [place] ??[address] Speech And Language Assistant: [place] Siddiqui MD, Blood BLOOD SPECIMEN / Unknown Venipuncture / Unknown 05/14/2020 3:19 PM DIRECTOR MARKET INTELLIGENCE 05/14/2020 3:44 PM DIRECTOR MARKET INTELLIGENCE Meeta Fofanautt PHOTOVOLTAIC FABRICATION TECHNICIAN-BOARDING KENNEL OR CATTERY OPERATOR LAB - BLOOD BANK ORDERABLES [facility] ([facility]) [address] [place] [address], [facility] * DONOR PANEL [id number] (05/14/2020 3:19 PM DIRECTOR MARKET INTELLIGENCE) Donor Hepatitis B Surface Antigen Negative Negative 05/15/2020 6:07 PM DIRECTOR MARKET INTELLIGENCE [facility] ([facility]) Comment:Test performed with Hackett Prism HBsAg kit. Donor Hepatitis B Core Virus Antibody Total Negative Negative 05/15/2020 6:07 PM DIRECTOR MARKET INTELLIGENCE [facility] ([facility]) Comment:Test performed with Hack[employer] Prism HBcore kit. Donor Hepatitis C Antibody Negative Negative 05/15/2020 6:07 PM DIRECTOR MARKET INTELLIGENCE [facility] ([facility]) Comment:Test performed with Hack[employer] Prism HCV kit. Donor Syphilis (T pallidum) Non Reactive Non Reactive 05/15/2020 6:07 PM DIRECTOR MARKET INTELLIGENCE [facility] ([facility]) Comment:Test performed with Chatosity PK TP kit. Donor Cytomegalovirus Total Antibody Non Reactive Non Reactive 05/15/2020 6:07 PM DIRECTOR MARKET INTELLIGENCE [facility] ([facility]) Comment:Test performed with MembraneX Capture-CMV IgG and IgM kit. Donor HIV-1/O/2 Antibody Negative Negative 05/15/2020 6:07 PM DIRECTOR MARKET INTELLIGENCE [facility] ([facility]) Comment:Test performed with Hackett [employer] HIV O Plus kit. Donor HIV-1/HCV/HBV Comment Non Reactive 05/15/2020 6:07 PM DIRECTOR MARKET INTELLIGENCE [facility] ([facility]) Comment: ?Non-Reactive for HIV-1 and HIV-2 RNA ?Non-Reactive for HCV RNA ?Non-Reactive for HBV DNA Test performed with Aaliyah MPX kit. Donor HTLV-I/II Antibodies Qual Negative Negative 05/15/2020 6:07 PM DIRECTOR MARKET INTELLIGENCE [facility] ([facility]) Comment:Test performed with Hackett Prism HTLV-I/HTLV-II assay. Donor Zika Virus SHANDA Assay Non Reactive Non Reactive 05/15/2020 6:07 PM DIRECTOR MARKET INTELLIGENCE [facility] ([facility]) Comment:Test performed with Aaliyah Zika kit. Donor WNV SHANDA Assay Non Reactive Non Reactive 05/15/2020 6:07 PM DIRECTOR MARKET INTELLIGENCE [facility] ([facility]) Comment:Test performed with Aaliyah WNV kit. Donor T cruzi (Chagas) Non Reactive Non Reactive 05/15/2020 6:07 PM DIRECTOR MARKET INTELLIGENCE [facility] ([facility]) Comment:Test performed with Hackett Prism Chagas assay. Blood BLOOD SPECIMEN / Unknown Venipuncture / Unknown 05/14/2020 3:19 PM DIRECTOR MARKET INTELLIGENCE 05/14/2020 3:44 PM DIRECTOR MARKET INTELLIGENCE Narrative [facility] ([facility]) - 05/15/2020 6:07 PM DIRECTOR MARKET INTELLIGENCE Performed at: ??01 - [employer] [address] ??[id number] Speech And Language Assistant: Alyx Llanos PhD, Phone: ??[phone] Meeta Henriquez [facility] - CHEMISTRY O RDERABLES [facility] ([facility]) [address] [place] [address] * URIC ACID BLOOD (05/14/2020 3:19 PM DIRECTOR MARKET INTELLIGENCE) [facility] Uric Acid 4.2 2.6 - 7.2 mg/dL 05/14/2020 4:17 PM DIRECTOR MARKET INTELLIGENCE [facility] Blood BLOOD SPECIMEN / Unknown Venipuncture / Unknown 05/14/2020 3:19 PM DIRECTOR MARKET INTELLIGENCE 05/14/2020 3:44 PM DIRECTOR MARKET INTELLIGENCE Meeta Henriquez [facility] - CHEMISTRY O RDERABLES [address] [address] [phone] * SUPA-MOYER VIRUS ANTIBODY TO VCA IGM (05/14/2020 3:19 PM DIRECTOR MARKET INTELLIGENCE) Pathologist [facility] Supa-Moyer Virus Antibody IgM Viral Capsid Antigen <10.0 0.0 - 43.9 U/mL 05/18/2020 1:14 AM DIRECTOR MARKET INTELLIGENCE [employer] ([facility]) Comment: INTERPRETIVE INFORMATION: Supa-Moyer Virus Antibody to ?Viral Capsid Antigen, IgM ??35.9 U/mL or less.......Not Detected ?36.0-43.9 U/mL..........Indeterminate - Repeat testing in ?10-14 days may be helpful. ??44.0 U/mL or greater....Detected Performed By: [facility] [email or web address] [address] [place] [address] Top Inventory Control Executive: Maribell Fragoso MD Blood BLOOD SPECIMEN / Unknown Venipuncture / Unknown 05/14/2020 3:19 PM DIRECTOR MARKET INTELLIGENCE 05/14/2020 4:42 PM DIRECTOR MARKET INTELLIGENCE Meeta Henriquez APRN-BOARDING KENNEL OR CATTERY OPERATOR LAB - SEROLOGY OR DERABLES Performing Organization Address [facility]/State/[facility] Co de Phone Number [facility] ([facility]) [address] * CYTOMEGALOVIRUS ANTIBODY IGM BLOOD (05/14/2020 3:19 PM DIRECTOR MARKET INTELLIGENCE) Cytomegalovirus Antibody IgM <30.0 0.0 - 29.9 AU/mL 05/16/2020 11:07 AM DIRECTOR MARKET INTELLIGENCE [facility] ([facility]) Comment: ?Negative ? <30.0 ?Equivocal ??30.0 - 34.9 ?Positive ? >34.9 A positive result is generally indicative of acute infection, reactivation or persistent IgM production. Blood BLOOD SPECIMEN / Unknown Venipuncture / Unknown 05/14/2020 3:19 PM DIRECTOR MARKET INTELLIGENCE 05/14/2020 4:32 PM DIRECTOR MARKET INTELLIGENCE Narrative [facility] ([facility]) - 05/16/2020 11:07 AM DIRECTOR MARKET INTELLIGENCE Performed at: ??01 - [facility] [address], [place] ??[id number] Speech And Language Assistant: Nathaniel Perez PhD, Phone: ??[phone] Meeta Henriquez PHOTOVOLTAIC FABRICATION TECHNICIAN-BOARDING KENNEL OR CATTERY OPERATOR LAB - CHEMISTRY O RDERABLES [facility] ([facility]) [address] [place] [address], [facility] * CYTOMEGALOVIRUS ANTIBODY IGG BLOOD (05/14/2020 3:19 PM DIRECTOR MARKET INTELLIGENCE) Only the most recent of2 resultswithin the time period is included. Cytomegalovirus Antibody IgG 0.28 U/mL 05/18/2020 2:10 AM DIRECTOR MARKET INTELLIGENCE [employer] ([facility]) Comment: INTERPRETIVE INFORMATION: Cytomegalovirus Antibody, IgG ??0.59 U/mL or less......... Not Detected ??0.6 - 0.69 U/mL........... Indeterminate-Repeat testing in ? 10-14 days may be helpful. ??0.70 U/mL or greater...... Detected In immunocompromised patients, CMV serology (IgG or IgM antibody titers) may not be reliable and may be misleading in the diagnosis of acute or reactivation CMV disease. The preferred method for diagnosis is culture of virus and/or demonstration of viral antigen in peripheral white cells (buffy coat), bronchoalveolar lavage (BAL) cells, or tissue biopsies. This test should not be used for blood donor screening, associated re-entry protocols, or for screening Human Cell, Tissues and Cellular and Tissue-Based Products (HCT/P). The best evidence for current infection is a significant change on two appropriately timed specimens, where both tests are done in the same laboratory at the same time. Performed By: [employer] [address] [place] [address] Top Inventory Control Executive: Maribell Fragoso MD Blood BLOOD SPECIMEN / Unknown Venipuncture / Unknown 05/14/2020 3:19 PM DIRECTOR MARKET INTELLIGENCE 05/14/2020 4:42 PM DIRECTOR MARKET INTELLIGENCE Meeta Fofanautt PHOTOVOLTAIC FABRICATION TECHNICIAN-BOARDING KENNEL OR CATTERY OPERATOR LAB - CHEMISTRY O RDERABLES [employer] ([facility]) [address] [place] [address], [facility] * (ABNORMAL) HERPES SIMPLEX 1+2 ANTIBODY IGG/IGM PANEL (05/14/2020 3:19 PM DIRECTOR MARKET INTELLIGENCE) Herpes Simplex Virus 1/2 Antibody IgG 11.60 IV 05/20/2020 5:29 AM [facility] ([facility]) Comment: INTERPRETIVE INFORMATION: HSV 1/2 COMBINED Ab SCREEN, IgG ??0.89 IV or less.........Not Detected ??0.90-1.09 IV............Indeterminate- Repeat testing ?in 10-14 days may be helpful. ??1.10 IV or greater......Detected The best evidence for current infection is a significant change on two appropriately timed specimens, where both tests are done in the same laboratory at the same time. Herpes Simplex Virus 1/2 Antibody IgM 1.55(H) <=0.89 IV 05/20/2020 5:29 AM [facility] ([facility]) Comment: INTERPRETIVE INFORMATION: Herpes Simplex Virus Type 1 and/or 2 Antibodies, IgM by RYAN ??0.89 IV or Less .......... Not Detected ??0.90 - 1.09 IV ........... Indeterminate- Repeat testing in ? 10-14 days may be helpful. ??1.10 IV or Greater ....... Detected-IgM antibody to HSV ? detected, which may indicate a ? current or recent infection. ? However, low levels of IgM ? antibodies may occasionally ? persist for more than 12 ? months post-infection. Performed By: [employer] [address] [place] [address] Top Inventory Control Executive: Maribell Fragoso MD Blood BLOOD SPECIMEN / Unknown Venipuncture / Unknown 05/14/2020 3:19 PM DIRECTOR MARKET INTELLIGENCE 05/14/2020 4:32 PM DIRECTOR MARKET INTELLIGENCE Meeta Henriqeuz PHOTOVOLTAIC FABRICATION TECHNICIAN-BOARDING KENNEL OR CATTERY OPERATOR LAB - CHEMISTRY O RDERABLES [employer] [facility]) [address] * VARICELLA ZOSTER ANTIBODY IGM (05/14/2020 3:19 PM DIRECTOR MARKET INTELLIGENCE) Varicella zoster Virus Antibody IgM 0.22 <=0.90 ISR 05/19/2020 6:36 AM DIRECTOR MARKET INTELLIGENCE [facility]) Comment: INTERPRETIVE INFORMATION: Varicella-Zoster Virus Antibody, IgM ??0.90 ISR or less ........ Negative - No significant ?level of detectable ?varicella-zoster virus ?IgM antibody. ??0.91-1.09 ISR ........... Equivocal - Repeat testing in ?10-14 days may be helpful. ??1.10 ISR or greater ..... Positive - Significant level ?of detectable varicella-zoster ?virus IgM antibody. Indicative ?of current or recent infection. ?However, low levels of IgM ?antibodies may occasionally ?persist for more than 12 months ?post-infection or immunization. Performed By: [employer] [address] [place] [address] Top Inventory Control Executive: Maribell Fragoso MD Blood BLOOD SPECIMEN / Unknown Venipuncture / Unknown 05/14/2020 3:19 PM DIRECTOR MARKET INTELLIGENCE 05/14/2020 4:43 PM DIRECTOR MARKET INTELLIGENCE Meeta Henriquez PHOTOVOLTAIC FABRICATION TECHNICIAN-BOARDING KENNEL OR CATTERY OPERATOR LAB - CHEMISTRY O RDERABLES [employer] ([facility]) [address] [place] [address], [facility] * VARICELLA ZOSTER ANTIBODY IGG (05/14/2020 3:19 PM DIRECTOR MARKET INTELLIGENCE) Varicella zoster Virus Antibody IgG 1484.0 IV 05/18/2020 3:11 AM DIRECTOR MARKET INTELLIGENCE [facility] ([facility]) Comment: INTERPRETIVE INFORMATION: VZV Ab, IgG 134.9 IV or less ....... Negative - No significant level of ? detectable IgG varicella-zoster ? antibody. 135.0 - 164.9 IV ....... Equivocal - Repeat testing in ? 10-14 days may be helpful. 165.0 IV or greater .... Positive - IgG antibody to ? varicella-zoster detected, which ? may indicate a current or past ? varicella-zoster infection. The best evidence for current infection is a significant change on two appropriately timed specimens, where both tests are done in the same laboratory at the same time. Performed By: [employer] [address] [place] [address] Top Inventory Control Executive: Maribell Fragoso MD Blood BLOOD SPECIMEN / Unknown Venipuncture / Unknown 05/14/2020 3:19 PM DIRECTOR MARKET INTELLIGENCE 05/14/2020 4:42 PM DIRECTOR MARKET INTELLIGENCE Meeta Henriquez PHOTOVOLTAIC FABRICATION TECHNICIAN-BOARDING KENNEL OR CATTERY OPERATOR LAB - CHEMISTRY O RDERABLES Performing Organization Address City/State/[facility] Co de Phone Number [employer] ([facility]) [address] [place] [address], [facility] * TOXOPLASMA GONDII ANTIBODY IGG (05/14/2020 3:19 PM DIRECTOR MARKET INTELLIGENCE) Toxoplasma Antibody IgG <3.0 IU/mL 05/18/2020 3:15 AM DIRECTOR MARKET INTELLIGENCE [facility] ([facility]) Comment: INTERPRETIVE INFORMATION: Toxoplasma Ab, IgG ??7.1 IU/mL or less....... Not Detected ??7.2-8.7 IU/mL .......... Indeterminate-Repeat testing in ? 10-14 days may be helpful. ??8.8 IU/mL or greater ... Detected The best evidence for current infection is a significant change on two appropriately timed specimens, where both tests are done in the same laboratory at the same time. This test should not be used for blood donor screening, associated re-entry protocols, or for screening Human Cell, Tissues and Cellular and Tissue-Based Products (HCT/P). The magnitude of the measured result is not indicative of the amount of antibody present. Performed By: [employer] [address] [place] [address] Top Inventory Control Executive: Maribell Fragoso MD Blood BLOOD SPECIMEN / Unknown Venipuncture / Unknown 05/14/2020 3:19 PM DIRECTOR MARKET INTELLIGENCE 05/14/2020 4:32 PM DIRECTOR MARKET INTELLIGENCE Meeta Henriquez PHOTOVOLTAIC FABRICATION TECHNICIAN-BOARDING KENNEL OR CATTERY OPERATOR LAB - CHEMISTRY O RDERABLES [facility] ([facility]) [address] [place] [address] * (ABNORMAL) SUPA-MOYER VIRUS ANTIBODY TO VCA IGG (05/14/2020 3:19 PM DIRECTOR MARKET INTELLIGENCE) Supa-Moyer Virus Antibody IgG Viral Capsid Antigen 207.0(H) 0.0 - 21.9 U/mL 05/18/2020 2:19 AM DIRECTOR MARKET INTELLIGENCE COUNTS INCLUDE [address] BEDS AT THE [facility] ([facility]) Comment: INTERPRETIVE INFORMATION: Supa-Moyer Virus Antibody to ?Viral Capsid Antigen, IgG ??17.9 U/mL or less.......Not Detected ??18.0-21.9 U/mL..........Indeterminate - Repeat testing in ?10-14 days may be helpful. ??22.0 U/mL or greater....Detected Performed By: [employer] [address] [place] [address] Top Inventory Control Executive: Maribell Fragoso MD Blood BLOOD SPECIMEN / Unknown Venipuncture / Unknown 05/14/2020 3:19 PM DIRECTOR MARKET INTELLIGENCE 05/14/2020 4:32 PM DIRECTOR MARKET INTELLIGENCE Meeta Henriquez APRN-BOARDING KENNEL OR CATTERY OPERATOR LAB - CHEMISTRY O RDERABLES COUNTS INCLUDE 234 BEDS AT THE [facility] ([facility]) [address] [place] [address], [facility] * SICKLE CELL SCREEN (05/14/2020 3:19 PM DIRECTOR MARKET INTELLIGENCE) Pathologist [facility] Sickle Cell Screen Negative Negative 05/14/2020 4:11 PM DIRECTOR MARKET INTELLIGENCE [facility] Blood BLOOD SPECIMEN / Unknown Venipuncture / Unknown 05/14/2020 3:19 PM DIRECTOR MARKET INTELLIGENCE 05/14/2020 3:44 PM DIRECTOR MARKET INTELLIGENCE Meeta Henriquez [facility] - HEMATOLOGY ORDERABLES Performing Organization Address [facility] Co de Phone Number [address] [address], [place] [phone] * TRIGLYCERIDES BLOOD (05/14/2020 3:19 PM DIRECTOR MARKET INTELLIGENCE) Pathologist [facility] Triglycerides 115 <150 mg/dL 05/14/2020 4:17 PM DIRECTOR MARKET INTELLIGENCE [facility] Comment: ATP III Classification of Triglycerides: ?<150 mg/dL: ??Normal ? 150 - 199 mg/dL: ??Borderline High ? 200 - 400 mg/dL: ??High ?>500 mg/dL: ??Very High Blood BLOOD SPECIMEN / Unknown Venipuncture / Unknown 05/14/2020 3:19 PM DIRECTOR MARKET INTELLIGENCE 05/14/2020 3:44 PM DIRECTOR MARKET INTELLIGENCE Meeta Henriquez APRN-BOARDING KENNEL OR CATTERY OPERATOR LAB - CHEMISTRY O RDERABLES Performing Organization Address [facility]/ZIP Co de Phone Number [address] [address], [place] [phone] * COMPREHENSIVE METABOLIC PANEL (05/14/2020 3:19 PM DIRECTOR MARKET INTELLIGENCE) Pathologist [facility] BUN 8 7 - 26 mg/dL 05/14/2020 4:16 PM [facility] Creatinine 0.8 0.6 - 1.2 mg/dL 05/14/2020 4:16 PM [facility] Sodium 136 136 - 145 mmol/L 05/14/2020 4:16 PM [facility] Potassium 3.6 3.5 - 4.5 mmol/L 05/14/2020 4:16 PM [facility] Chloride 103 98 - 107 mmol/L 05/14/2020 4:16 PM [facility] CO2 25 22 - 29 mmol/L 05/14/2020 4:16 PM [facility] Glucose 100 70 - 115 mg/dL 05/14/2020 4:16 PM [facility] Calcium 8.8 8.4 - 10.2 mg/dL 05/14/2020 4:16 PM [facility] Protein Total 7.6 6.0 - 8.3 g/dL 05/14/2020 4:16 PM [facility] Albumin 4.3 3.4 - 5.0 g/dL 05/14/2020 4:16 PM [facility] Bilirubin Total 0.3 0.2 - 1.2 mg/dL 05/14/2020 4:16 PM [facility] Alkaline Phosphatase 98 40 - 150 Units/L 05/14/2020 4:16 PM [facility] ALT 16 0 - 55 Units/L 05/14/2020 4:16 PM [facility] AST 14 5 - 34 Units/L 05/14/2020 4:16 PM [facility] Anion Gap 12 8 - 18 05/14/2020 4:16 PM [facility] BUN/Creatinine Ratio 10 7 - 23 05/14/2020 4:16 PM [facility] Osmolality Calculated 280 270 - 300 mOsm/kg 05/14/2020 4:16 PM [facility] Albumin/Globulin Ratio 1.3 1.1 - 2.3 05/14/2020 4:16 PM [facility] eGFR >60 >60 mL/min/1.7 3 m2 05/14/2020 4:16 PM [facility] Blood BLOOD SPECIMEN / Unknown Venipuncture / Unknown 05/14/2020 3:19 PM DIRECTOR MARKET INTELLIGENCE 05/14/2020 3:44 PM DIRECTOR MARKET INTELLIGENCE Meeta Fofanaradha GARCIABOARDING KENNEL OR CATTERY OPERATOR LAB - CHEMISTRY O RDERABLES [address] [address], [place] [phone] * HCG BETA BLOOD QUANTITATIVE (05/14/2020 3:19 PM DIRECTOR MARKET INTELLIGENCE) [facility] Beta-hCG Total Quantitative <3 <5 mIU/mL 05/14/2020 4:19 PM DIRECTOR MARKET INTELLIGENCE [facility] Comment: This assay is cleared for use in the early detection of only. It is not approved for any other uses such as tumor marker screening, tumor marker monitoring, etc. and should not be used for any other purposes. HCG Numeric Result Interpretation: ? Non- Females: ? < 5 mIU/mL ? Post-Menopausal Females: ??< 7 mIU/mL ? Blood BLOOD SPECIMEN / Unknown Venipuncture / Unknown 05/14/2020 3:19 PM DIRECTOR MARKET INTELLIGENCE 05/14/2020 3:44 PM DIRECTOR MARKET INTELLIGENCE Meeta Fofanaradha [facility] LAB - CHEMISTRY O RDERABLES Performing Organization Address [facility]/ZIP Co de Phone Number [address] [address], [place] [phone] * PHOSPHORUS BLOOD (05/14/2020 3:19 PM DIRECTOR MARKET INTELLIGENCE) [facility] Phosphorus 2.5 2.3 - 4.7 mg/dL 05/14/2020 4:17 PM DIRECTOR MARKET INTELLIGENCE [facility] Blood BLOOD SPECIMEN / Unknown Venipuncture / Unknown 05/14/2020 3:19 PM DIRECTOR MARKET INTELLIGENCE 05/14/2020 3:44 PM DIRECTOR MARKET INTELLIGENCE Meeta Fofanautt [facility] - CHEMISTRY O RDERABLES [address] [address], [place] [phone] * MAGNESIUM BLOOD (05/14/2020 3:19 PM DIRECTOR MARKET INTELLIGENCE) [facility] Magnesium 1.8 1.6 - 2.6 mg/dL 05/14/2020 4:17 PM DIRECTOR MARKET INTELLIGENCE [facility] Blood BLOOD SPECIMEN / Unknown Venipuncture / Unknown 05/14/2020 3:19 PM DIRECTOR MARKET INTELLIGENCE 05/14/2020 3:44 PM DIRECTOR MARKET INTELLIGENCE Meeta Fofanautt PHOTOVOLTAIC FABRICATION TECHNICIAN-BOARDING KENNEL OR CATTERY OPERATOR LAB - CHEMISTRY O RDERABLES Performing Organization Address [facility]/ZIP Co de Phone Number [address] [address], [facility] [phone] * LDH BLOOD (05/14/2020 3:19 PM DIRECTOR MARKET INTELLIGENCE) [facility] LDH Total 146 125 - 243 Units/L 05/14/2020 4:17 PM [facility] Blood BLOOD SPECIMEN / Unknown Venipuncture / Unknown 05/14/2020 3:19 PM DIRECTOR MARKET INTELLIGENCE 05/14/2020 3:44 PM DIRECTOR MARKET INTELLIGENCE Meeta Fofanaradha HARTN-BOARDING KENNEL OR CATTERY OPERATOR LAB - CHEMISTRY O RDERABLES Performing Organization Address [facility] Co de Phone Number [address] [address], [facility] [phone] * HEPATITIS B SURFACE ANTIBODY (05/14/2020 3:19 PM DIRECTOR MARKET INTELLIGENCE) [facility] Hepatitis B Virus Surface Antibody Non-react elba Non-react elba 05/14/2020 4:59 PM [facility] Comment: < 8 mIU/mL Hepatitis B surface Antibody (HBsAb). Nonreactive for HBsAb - individual is considered not immune to Hepatitis B Virus infection. Hepatitis B Surface Antibody Quantitative 1.2 <8.0 mIU/mL 05/14/2020 4:59 PM [facility] Comment: Hepatitis B Surface Antibody Numeric Result Interpretation: ? Nonreactive: ?<8.0 mIU/mL ? Indeterminate: ??8.0 - 12.0 mIU/mL ? Reactive: ?>12.0 mIU/mL ? Blood BLOOD SPECIMEN / Unknown Venipuncture / Unknown 05/14/2020 3:19 PM [employer] MARK[employer] INTELLIGENCE 05/14/2020 4:25 PM DIRECTOR MARKET INTELLIGENCE Meeta Henriquez PHOTOVOLTAIC FABRICATION TECHNICIAN-BOARDING KENNEL OR CATTERY OPERATOR LAB - CHEMISTRY O RDERABLES Performing Organization Address City/[facility]/ZIP Co de Phone Number [address] [address], [facility] [phone] * CHOLESTEROL BLOOD (05/14/2020 3:19 PM DIRECTOR MARKET INTELLIGENCE) Cholesterol Total 186 <200 mg/dL 05/14/2020 4:16 PM [facility] Blood BLOOD SPECIMEN / Unknown Venipuncture / Unknown 05/14/2020 3:19 PM [employer] MARKET INTELLIGENCE 05/14/2020 3:44 PM DIRECTOR MARKET INTELLIGENCE Meeta Henriquez PHOTOVOLTAIC FABRICATION TECHNICIANSyntasiaBOARDING KENNEL OR CATTERY OPERATOR LAB - CHEMISTRY O RDERABLES Performing Organization Address [facility]/ZIP Co de Phone Number [address] [phone], [facility] [phone] * PROTEIN ELECTROPHORESIS BLOOD (05/14/2020 3:19 PM DIRECTOR MARKET INTELLIGENCE) Pathologist [facility] Interpretation Serum PE Normal Pattern Normal Pattern 05/31/2020 1:13 PM [facility] Comment: Serum capillary electrophoresis shows characteristic bands corresponding to albumin, alpha and beta globulins and polyclonal immunoglobulins. No monoclonal immunoglobulins detected. Non-secretory myeloma (NSM) and light chain only myeloma cannot be excluded based on this result. ??Recommend serum free light chain measurements for complete evaluation of plasma cell disorders. ?? Deepak Mckeon PhD, [facility] Clinical Reject Opener And Filler filter plant operator *The electrophoresis pattern and the interpretation have been reviewed and verified by the teaching physician. Protein Total 7.3 6.0 - 8.3 g/dL 05/31/2020 1:13 PM [facility] Albumin 4.4 3.3 - 5.6 g/dL 05/31/2020 1:13 PM [facility] Alpha-1 Globulins 0.3 0.2 - 0.4 g/dL 05/31/2020 1:13 PM DIRECTOR MARKET INTELLIGENCE [facility] Alpha-2 Globulins 0.7 0.5 - 1.0 g/dL 05/31/2020 1:13 PM DIRECTOR MARKET INTELLIGENCE [facility] Beta Globulins 0.8 0.6 - 1.1 g/dL 05/31/2020 1:13 PM DIRECTOR MARKET INTELLIGENCE [facility] Gamma Globulins 1.1 0.6 - 1.6 g/dL 05/31/2020 1:13 PM DIRECTOR MARKET INTELLIGENCE [facility] Blood BLOOD SPECIMEN / Unknown Venipuncture / Unknown 05/14/2020 3:19 PM DIRECTOR MARKET INTELLIGENCE 05/14/2020 4:25 PM DIRECTOR MARKET INTELLIGENCE Meeta Henriquez PHOTOVOLTAIC FABRICATION TECHNICIAN-BOARDING KENNEL OR CATTERY OPERATOR LAB - CHEMISTRY O RDERABLES [facility] [address] [place] [address], [facility] [phone] * PATHOLOGY/CYTOLOGY REPORT ORDER (06/22/2014 7:01 PM DIRECTOR MARKET INTELLIGENCE) Narrative 06/22/2014 7:01 PM DIRECTOR MARKET INTELLIGENCE Ordered by an unspecified provider. Scanned Document LAB - PATHOLOGY/CYTO LOGY ORDERABLES * GROSS + MICRO EXAM (STL) (06/19/2014 3:37 PM DIRECTOR MARKET INTELLIGENCE) Case Report Surgical Pathology Report ? Case: [id number] ? Authorizing Provider: ??Praveena Cummins MD ??Collected: ? 06/19/2014 03:37 PM ? Ordering Location: ? [facility] ?Received: ?06/22/2014 08:03 AM ? [facility] ? Pathologist: ? Cherelle Meza MD ? Specimen: ?Cyst ? 06/23/2014 9:35 AM [facility] Final Diagnosis A. CYST, RIGHT UPPER EYELID, EXCISION: - DERMOID CYST 06/23/2014 9:35 AM [facility] Clinical History The patient is a 13-year-old girl who underwent excision of a right upper eyelid cyst. 06/23/2014 9:35 AM [facility] Gross Description Submitted fixed in formalin in one container for gross and microscopic examination, labeled with the patient's name, Ashley Hall, and right eye cyst, is a 4 x 4 x 4 mm round, pink-white cyst with attached ellipse of pink-garcia skin, 5 x 3 mm. The specimen is bisected, and cut surface reveals a cyst containing white keratinaceous material. The specimen is entirely submitted in cassette A1. (CT/pc) 06/23/2014 9:35 AM [facility] Microscopic Description 1 H&E slide Sections show a cyst lined with stratified squamous epithelium with adnexal structures within the cyst wall and filled with keratinous debris. 06/23/2014 9:35 AM [facility] Disclaimer The performance characteristics of all immunohistochemical and indirect immunofluorescence stains (if any) cited in this report were determined by the [facility] in compliance with CLIA `88 regulations. Some of these tests rely on the use of analyte-specific reagents and are subject to specific labeling requirements by the FDA. Such tests were developed by the [facility] and have not been cleared or approved by the FDA. The FDA has determined that such clearance or approval is not necessary. These tests are used for clinical purposes and should not be regarded as investigational or for research. This case has been personally reviewed and interpreted by the attending (teaching) pathologist. 06/23/2014 9:35 AM DIRECTOR MARKET INTELLIGENCE [facility] Pathology/Cytolo gy CYST TISSUE / Unknown 06/19/2014 3:37 PM DIRECTOR MARKET INTELLIGENCE 06/22/2014 8:03 AM DIRECTOR MARKET INTELLIGENCE Praveena Cummins MD LAB - PATHOLOGY /CYTOLOGY ORDERABLES Performing Organization Address City/[facility] Co de Phone Number [facility] [address] [phone] * IMAGING/RADIOLOGY/XRAY RESULTS ORDER (10/14/2012 3:13 PM CDT) Anatomical Region Laterality Modality Other Narrative 09/03/2012 10:53 AM CDT Procedure Note Document, Scanned - 09/03/2012 10:53 AM CDT Transcriptions Document, Scanned - 10/14/2012 3:13 PM CDT Scanned Document IMAGING
--- OUTSIDE RECORDS SUMMARY | 2024-07-01 16:23 | XMS_ITS | Data Portability ---
[facility] Organization [facility] [address] [place] [address] Care Team Providers Care Stitchdown Toe Former Name Role Phone ERNST ALEXANDER Primary Care Provider Assessment No assessment recorded. Plan of Treatment Reminders Order Date Submit Date Provider Last Modified By Organization Details Last Modified Time Details Appointments None recorded. Lab None recorded. Referral None recorded. Procedures None recorded. Surgeries None recorded. Imaging None recorded. Medication Orders Bactrim DS 800 mg-160 [facility] tablet [facility] [address] [place], [address], 1 18:07:50 mupirocin calcium 2 % topical cream [address] [facility] [address] [place], [address], 1 18:16:48 Patient TargetsNo targets recorded. Patient InstructionsNo instructions recorded. Reason for Referral None Reported. Problems Name Problem SNOMED Code Status Onset Date Resolution Date Notes Provider Name and Address Organization Details Recorded Time Anterior knee pain 410174603 Active Karely Medellin MA null, [facility] 6 15:32:44 Problem Notes None recorded. Procedures Surgical History Date Name Laterality Status Provider Name and Address Organization Details Recorded Time 06/04/2016 endoscopy completed Sandy Godoy MA [facility] 04/23/2020 15:38:06 Imaging Results None recorded. Procedure Notes None recorded. Medical Equipment None Reported. Allergies No known drug allergies Medications Name Sig Start Date Stop Date Status Note LastModified by Organization Details LastModified Time amoxicillin 500 mg capsule 01/12 completed Not Available Not Available Not Available fluconazole 150 mg tablet TAKE 1 TABLET BY MOUTH ONCE DAILY FOR ONE DOSE 01/27 completed Not Available Not Available Not Available hydrocodone 5 mg-acetamin ophen 325 mg tablet 01/12 completed Not Available Not Available Not Available metronidazo le 0.75 % (37.5 mg/5 gram) vaginal gel INSERT 1 APPLICATO RFUL INTO VAGINA ONCE DAILY FOR 5 DAYS 01/27 completed Not Available Not Available Not Available sulfamethox azole 800 mg-trimetho prim 160 mg tablet TAKE 1 TABLET BY MOUTH EVERY 12 HOURS FOR 10 DAYS 01/27 completed Not Available Not Available Not Available cephalexin 500 mg capsule Take 1 capsule 3 times a day by oral route for 10 days. 11/27 completed Not Available Not Available Not Available mupirocin calcium 2 % topical cream APPLY A SMALL AMOUNT TO THE AFFECTED AREA BY TOPICAL ROUTE 3 TIMES PER DAY FOR 10 DAYS 01/27 completed Not Available Not Available Not Available hydroxyzine HCl 25 mg tablet TAKE 1 TABLET BY MOUTH THREE TIMES DAILY NEEDED FOR ANXIETY active Not Available Not Available No t Available mupirocin 2 % topical ointment APPLY A SMALL AMOUNT TOPICALLY TO THE AFFECTED AREA THREE TIMES DAILY FOR 10 DAYS 01/27 completed Not Available Not Available Not Available lisinopril 2.5 mg tablet TAKE 1 TABLET BY MOUTH ONCE DAILY active Not Available Not Available No t Available doxycycline hyclate 100 mg tablet TAKE 1 TABLET BY MOUTH TWICE DAILY FOR 7 DAYS 01/27 completed Not Available Not Available Not Available Sprintec (28) 0.25 mg-35 mcg tablet 01/27 completed Not Available Not Available Not Available Aishwarya 0.35 mg tablet TAKE 1 TABLET BY MOUTH ONCE DAILY active Not Available Not Available No t Available nitrofurant oin monohydrate /macrocryst als 100 mg capsule TAKE 1 CAPSULE BY MOUTH EVERY 12 HOURS FOR 7 DAYS 01/27 completed Not Available Not Available Not Available RID Lice Killing 0.33 %-4 % shampoo Apply 1 applicati on by topical route as directed for 1 day. 01/19 completed Not Available Not Available Not Available ID NOW COVID-19 Test Kit TEST DIRECTED 01/27 completed Not Available Not Available Not Available COVID-19 test specimen collection DIRECTED 01/27 completed Not Available Not Available Not Available Afluria Qd 2019-21 (36 mos up)(PF)60 mcg (15 mcg x4)/0.5 mL IM syringe ADM 0.5ML IM UTD 01/27 completed Not Available Not Available Not Available Vitals Date Recorded Body height Provider Name an d Address Organization Details Last Updated DateTime 01/02/2019 165.1 cm Karely Medellin MA [facility] 01/02/2019 10:43:14 Date Recorded Body mass index (BMI) Body mass index (BMI) Percentile per age and sex Body weight Provider Name and Address Organization Details Last Updated DateTime 01/02/2019 32.6 kg/m2 97 % 46945.1 g Karely Medellin MA [facility] 01/02/2019 10:44:40 Date Recorded Oxygen saturation Oxygen saturation in Arterial blood by Pulse oximetry Provider Name and Address Organization Details Last Updated DateTime 01/02/2019 98 % 98 % Karely Medellin MA [facility] 01/02/2019 10:45:59 Date Recorded Heart rate Provider Name an d Address Organization Details Last Updated DateTime 01/02/2019 85 /min Karely Medellin MA [facility] 06/2018 10:46:01 Date Recorded Body height Provider Name an d Address Organization Details Last Updated DateTime 02/13/2019 166.37 cm Karely Medellin MA [facility] 02/13/2019 14:10:10 Date Recorded Body mass index (BMI) Body mass index (BMI) Percentile per age and sex Body weight Provider Name and Address Organization Details Last Updated DateTime 02/13/2019 32.3 kg/m2 96 % 74594.7 g Karely Medellin MA [facility] 02/13/2019 14:10:14 Date Recorded Oxygen saturation Oxygen saturation in Arterial blood by Pulse oximetry Provider Name and Address Organization Details Last Updated DateTime 02/13/2019 97 % 97 % Karely Medellin MA [facility] 02/13/2019 14:11:52 Date Recorded Heart rate Provider Name an d Address Organization Details Last Updated DateTime 02/13/2019 95 /min Karelysteffany Medellin [facility] 02/02 14:11:54 Date Recorded Body height Provider Name an d Address Organization Details Last Updated DateTime 01/13/2020 166.37 cm Karelysteffany Medellin CHELITA [facility] 01/13/2020 14:57:40 Date Recorded Body mass index (BMI) Percentile per age and sex Body mass index (BMI) Body weight Provider Name and Address Organization Details Last Updated DateTime 01/13/2020 96 % 32.2 kg/m2 75718.5 g Karely CHELITA Medellin [facility] 01/13/2020 14:59:05 Date Recorded Body temperature Provider Name a nd Address Organization Details Last Updated DateTime 01/13/2020 98.2 [degF] Karely KeoCHELITA cotto [facility] 01/13/2020 15:00:34 Date Recorded Oxygen saturation Oxygen saturation in Arterial blood by Pulse oximetry Provider Name and Address Organization Details Last Updated DateTime 01/13/2020 99 % 99 % Karely Medellin MA [facility] 01/13/2020 15:00:43 Date Recorded Heart rate Provider Name an d Address Organization Details Last Updated DateTime 01/13/2020 90 /min Karely Medellin MA [facility] 01/02 15:00:55 Date Recorded Body height Provider Name an d Address Organization Details Last Updated DateTime 04/23/2020 166.37 cm Sandy Godoy MA [facility] 04/23/20 20 15:39:57 Date Recorded Body temperature Provider Name a nd Address Organization Details Last Updated DateTime 04/23/2020 97.6 [degF] Sandy Godoy MA [facility] 020 15:40:30 Date Recorded Oxygen saturation Oxygen saturation in Arterial blood by Pulse oximetry Provider Name and Address Organization Details Last Updated DateTime 04/23/2020 99 % 99 % Sandy Godoy MA [facility] 04/23/2020 15:40:38 Date Recorded Heart rate Provider Name an d Address Organization Details Last Updated DateTime 04/23/2020 103 /min Sandy Godoy MA [facility] 04/23/20 20 15:40:42 Date Recorded Body mass index (BMI) Body mass index (BMI) Percentile per age and sex Body weight Provider Name and Address Organization Details Last Updated DateTime 04/23/2020 32.5 kg/m2 96 % 26411.69 g Sandy Godoy MA [facility] 04/23/2020 15:42:14 Date Recorded Body height Provider Name an d Address Organization Details Last Updated DateTime 01/27/2021 166.37 cm Sandy Godoy MA [facility] 01/28/20 21 18:09:42 Date Recorded Body temperature Provider Name a nd Address Organization Details Last Updated DateTime 01/27/2021 98.2 [degF] Sandy Godoy MA [facility] 021 18:10:59 Date Recorded Oxygen saturation Oxygen saturation in Arterial blood by Pulse oximetry Provider Name and Address Organization Details Last Updated DateTime 01/27/2021 98 % 98 % Sandy Godoy MA [facility] 01/27/2021 18:11:05 Date Recorded Heart rate Provider Name an d Address Organization Details Last Updated DateTime 01/27/2021 93 /min ARLETH Vincent Attn: Accounting,[address] [place], [address], [facility] 01/27/2021 18:49:17 Date Recorded Body mass index (BMI) Body mass index (BMI) Percentile per age and sex Body weight Provider Name and Address Organization Details Last Updated DateTime 01/27/2021 35.1 kg/m2 97 % 18218.77 g Sandy Godoy MA [facility] 01/27/2021 18:12:57 Date Recorded Systolic blood pressure Diastolic blood pressure Provider Name and Address Organization Details Last Updated DateTime 01/02/2019 126 mm[Hg] 84 mm[Hg] Karely Medellin MA [facility] 01/02/2019 10:45:51 Date Recorded Systolic blood pressure Diastolic blood pressure Provider Name and Address Organization Details Last Updated DateTime 02/13/2019 144 mm[Hg] 86 mm[Hg] Karely Medellin MA [facility] 02/13/2019 14:11:49 Date Recorded Systolic blood pressure Diastolic blood pressure Provider Name and Address Organization Details Last Updated DateTime 01/13/2020 144 mm[Hg] 100 mm[Hg] Karely Medellin MA [facility] 01/13/2020 15:00:09 Date Recorded Systolic blood pressure Diastolic blood pressure Provider Name and Address Organization Details Last Updated DateTime 04/23/2020 158 mm[Hg] 100 mm[Hg] Sandy Godoy MA [facility] 04/23/2020 15:41:44 Date Recorded Systolic blood pressure Diastolic blood pressure Provider Name and Address Organization Details Last Updated DateTime 01/27/2021 130 mm[Hg] 98 mm[Hg] Sandy Godoy MA [facility] 01/27/2021 18:12:23 Social History Question Answer Notes LastModified by Organizat ion Details LastModified Time Tobacco Smoking Status Never Smoker Lucia Hernandez MA [facility] 05/06/2014 10:25:55 What Is Your Level Of Alcohol Consumption? None Information not available 11/27/2018 What Is Your Level Of Caffeine Consumption? Moderate Information not available 11/27/2018 How Much Tobacco Do You Chew? None Information not available 04/23/2020 In The 14 Days Before Symptom Onset, Have You Had Close Contact With A Laboratory-confi rmed COVID-19 While That Case Was Ill? No Information not available 01/27/2021 In The 14 Days Before Symptom Onset, Have You Had Close Contact With A Person Who Is Under Investigation For COVID-19 While That Person Was Ill? No Information not available 01/27/2021 Have You Been To An Area Known To Be High Risk For COVID-19? No Information not available 01/27/2021 Are You Currently Employed? No Information not available 04/23/2020 What Type Of Diet Are You Following? REGULAR Information not available 11/27/2018 Which Illicit Or Recreational Drugs Have You Used? None Information not available 11/27/2018 Do You Or Have You Ever Used E-cigarettes Or Vape? Never Used Electronic Cigarettes Information not available 04/23/2020 Live Alone Or With Others? With Others Information not available 04/23/2020 What Was The Date Of Your Most Recent Tobacco Screening? 01/27/2021 Information not available 01/27/2021 What Is Your Relationship Status? Single Information not available 01/27/2021 Do You Have Smoke And Carbon Monoxide Detectors In Your Home? Yes Information not available 01/27/2021 Are You Passively Exposed To Smoke? No Information not available 01/27/2021 Do You Or Have You Ever Used Smokeless Tobacco? Never Used Smokeless Tobacco Information not available 04/23/2020 How Much Tobacco Do You Smoke? No Information not available 11/27/2018 General Stress Level Low Information not available 04/23/2020 Do You Feel Stressed (tense, Restless, Nervous, Or Anxious, Or Unable To Sleep At Night)? [id number] Information not available 01/27/2021 Do You Use Any Illicit Or Recreational Drugs? No Information not available 01/27/2021 Do You Use Sunscreen Routinely? Yes Information not available 01/27/2021 Has Tobacco Cessation Counseling Been Provided? No Information not available 11/27/2018 On What Date Was Tobacco Cessation Counseling Provided? 01/27/2021 Sdevriesma Answered No To The Tobacco Cessation Counseling Provided Question On 11/27/2018. Information not available 01/27/2021 How Many Years Have You Smoked Tobacco? 0 Information not available 11/27/2018 Do You Or Have You Ever Used Any Other Forms Of Tobacco Or Nicotine? No Information not available 01/27/2021 Sex: Unknown Functional Status Question Answer Note LastModified by Organization D etails LastModified Time Are you able to care for yourself? Yes Information n ot available 04/23/2020 Mental Status None recorded. Family History Relationship Description Onset Age of this Age Resolved Age Notes LastModified by Organization Details LastModified Time Mother Anxiety [email or web address] Not availab le 01/20/2016 15:32:44 Mother Depressive disorder [email or web address] Not available 01/02 15:32:44 Father Hypertensive disorder [email or web address] Not available 01/02 15:32:44 Medical History Condition Response Coronary Artery Disease N Other N High Blood Pressure N Atrial Fibrillation N Kidney or Bladder Problems N Thyroid Problems N GI Problems N Depression N COPD N Blood Clots N Skin Problems N Anemia N Heart Attack (GA) N Anxiety Disorder N Diabetes N Muscle, Joint, or Bone Problems N Seizures/Epilepsy N Acid Reflux (GERD) N Cancer N Stroke N Asthma N Allergies N High Cholesterol N Hepatitis N Liver Disease N Headaches N Heart Failure N Osteoporosis N Gynecological History Statement/Question Response Date of LMP 01/21/2021 Obstetrics History GPAL:G 0 P 0 0 0 0 Immunizations Vaccine Type Date Status Note Provider Nam e and Address Organization Details Recorded Time Hep B, unspecified formulation 1 completed [place] [facility] 12/13/2018 17:51:03 Hep B, unspecified formulation 1 [place] [facility] 12/13/2018 17:51:10 Hep B, unspecified formulation 1 completed [place] [facility] 12/13/2018 17:51:20 DTaP, unspecified formulation 1 completed [place] [facility] 12/13/2018 17:51:36 DTaP, unspecified formulation 1 [place] [facility] 12/13/2018 17:51:42 DTaP, unspecified formulation 1 [place] [facility] 12/13/2018 17:51:50 DTaP, unspecified formulation 2 completed [place] [facility] 12/13/2018 17:52:02 DTaP, unspecified formulation 6 completed [place] [facility] 12/13/2018 17:52:10 polio, unspecified formulation 1 [place] [facility] 12/13/2018 17:52:28 polio, unspecified formulation 1 [place] [facility] 12/13/2018 17:52:37 polio, unspecified formulation 2 [place] [facility] 12/13/2018 17:52:44 polio, unspecified formulation 6 completed [place] [facility] 12/13/2018 17:52:54 pneumococcal, unspecified formulation 1 [place] [facility] 12/13/2018 17:53:07 pneumococcal, unspecified formulation 1 completed Georgettesirisha SolitarioCHELITA [place] [facility] 12/13/2018 17:53:19 pneumococcal, unspecified formulation 1 completed Georgettesirisha Solitario[place]LTIA [place] [facility] 12/13/2018 17:53:26 pneumococcal, unspecified formulation 2 completed Ge[place]te[place]HELITA [place] [facility] 12/13/2018 17:53:31 MMR 2 completed Georgette Mathews [place] [facility] 12/13/2018 17:53:46 MMR 6 [place] [facility] 12/13/2018 17:53:56 varicella 2 completed Georgettesirisha Solitariories [place] [facility] 12/13/2018 17:54:08 Hep A, unspecified formulation 7 completed Georgette BisiCHELITA [place] [facility] 12/13/2018 17:54:38 HPV, unspecified formulation 2 completed Georgettesirisha Solitariories [place] [facility] 12/13/2018 17:54:58 meningococcal ACWY, unspecified formulation 2 completed Georgettesirisha Solitariories [place] [facility] 12/13/2018 17:55:14 Meningococcal MCV4O 8 completed [facility] 02:35:26 meningococcal B, OMV 0 [place] [facility] 01/13/2020 16:27:05 Hep A, unspecified formulation 1 completed [place] [facility] 08/10/2017 17:28:14 HPV, unspecified formulation 4 completed Karely Medellin MA null, [place] [facility] 08/10/2017 17:28:32 HPV, unspecified formulation 5 completed Karely Medellin [place] null, [place] [facility] 08/10/2017 17:28:45 Influenza, split virus, quadrivalent, preservative 7 completed Karely Medellin MA null, [facility] 08/10/2017 17:29:05 meningococcal ACWY, unspecified formulation 2 completed CHELITA Green, [facility] 08/10/2017 17:29:22 Tdap 1 completed CHELITA Green, [facility] 08/10/2017 17:29:40 varicella 1 completed CHELITA Green, [facility] 08/10/2017 17:30:06 Past Encounters Encounter ID Performer Location Encounter Start Date Encounter Closed Date Diagnosis/Indication Diagnosis SNOMED-CT Code Diagnosis ICD10 Code Diagnosis Note [id number] [facility] [address] [place] [address] 05/06/2014 10:22:40 05/07/2014 17:07:00 Well child [id number] Vonnie Page [facility] [address] [place] [address] 01/13/2015 14:18:27 01/13/2015 15:15:01 Well child [id number] Alexander Jimenez PA-C [facility] [address] [place] [address] 04/20/2015 11:21:39 04/20/2015 12:11:40 Anterior knee pain 849198134 M25.569 [id number] HODA Vincent [address] [place] [address] 06/18/2015 16:33:21 06/22/2015 10:00:14 Anterior knee pain 229323421 M25.561 [id number] HODA Vincent [address] [place] [address] 07/02/2015 16:55:09 07/02/2015 17:40:18 Anterior knee pain 302293189 M25.561 [id number] Alexander Jimenez PA-C [facility] [address] [place] [address] 01/20/2016 15:07:54 01/20/2016 16:15:13 Well child 480085288 Z00.352 [id number] HODA Vincent [facility] [address] [place] [address] 12/20/2016 11:34:58 12/20/2016 14:52:43 Well child 158488774 Z00.571 [id number] Georgette Mathews MA [facility] [address] [place] [address] 09/10/2017 09:55:14 09/10/2017 10:46:54 Well child 968539827 Z00.129 Acute non- suppurative serous otitis media 930768969 H65.01 [id number] Alexander Jimenez PA-C [facility] [address] [place] [address] 11/22/2017 14:57:42 11/22/2017 15:46:32 Well child 638323366 Z00.637 [id number] Alexander Jimenez PA-C [facility] [address] [place] [address] 05/02/2018 15:39:06 05/02/2018 16:10:45 Posterior rhinorrhea 67758959 R09.82 [id number] Alexander Jimenez PA-C [facility] [address] [place] [address] 11/27/2018 16:53:42 11/27/2018 17:49:47 [id number] HODA Vincent [facility] [address] [place] [address] 01/02/2019 10:37:52 01/02/2019 15:09:32 Well child 620669736 Z00.894 [id number] HODA Vincent [facility] [address] [place] [address] 02/13/2019 13:57:40 02/13/2019 15:13:58 Well child 981367120 Z00.976 [id number] Alexander Jimenez PA-C [facility] [address] [place] [address] 01/13/2020 14:47:58 01/13/2020 16:12:26 Well child visit 391497311 Z00.863 [id number] Alexander Jimenez PA-C [facility] [address] [place] [address] 04/23/2020 15:30:20 04/23/2020 16:10:30 Axillary hidradenitis suppurativa 159052163 L73.2 [id number] Alexander Jimenez PA-C [facility] [address] [place] [address] 01/27/2021 17:45:12 01/27/2021 18:58:51 Adult health examination 799335784 Z00.00 Health Concerns Section Related Observation LastModified by Organization Detai ls LastModified Time None Recorded Concern Status LastModified by Organization Details LastModified Time None Recorded Advance Directives Directive None Recorded Payers Encounter Date Sequence Insurance Name Policy Number Policy Pickard Covered Member ID Pickard Member ID Guarantor Name 01/02/2019 2 *SELF PAY* Ch istopher Mccabe 02/13/2019 2 *SELF PAY* Ch istopher Mccabe 02/13/2019 1 [facility] [id number] Chistopher Mccabe 01/13/2020 1 [facility] [id number] Chistopher Mccabe 01/13/2020 1 [facility] Christopher R Mccabe [id number] Chistopher Mccabe 04/23/2020 1 [facility] [id number] Chistopher Mccabe 04/23/2020 1 [facility] Christopher R Mccabe [id number] Chistopher Mccabe 01/27/2021 1 [facility] [id number] Chistopher Mccabe 01/27/2021 1 [facility] Christopher R Mccabe [id number] Chistopher Mccabe Notes Date Note Type Note Provider Name and Address Organization Details Recorded Time 01/02/2019 text/html needs college physical no complaints Alexander Jimenez PA-C Attn: Accounting,[address] [facility], [place], [address], [facility] [place] 01/02/2019 10:57:20 02/13/2019 text/html no complaints sports phys. Alexander Jimenez PA-C Attn: Accounting,[address] [facility], [place], [address], [facility] [place] 02/13/2019 14:59:38 01/13/2020 text/html college phys...n o complaints Alexander Jimenez PA-C Attn: Accounting,[address] [facility], [place], [address], [facility] [place] 01/13/2020 15:22:57 04/23/2020 text/html thinks she has infected armpit rt side.. Alexander Jimenez PA-C Attn: Accounting,[address] [facility], [place], [address], [facility] [place] 04/23/2020 16:10:28 OBGyn Episode No OBEpisode recorded.
--- OUTSIDE RECORDS SUMMARY | 2024-07-01 16:23 | XMS_ITS | Data Portability ---
Author Organization [facility] Address [address] [place] [address] Care Team Providers Care Relay Operator Name Role Phone CAROLINE NICK Primary Care Provider Assessment Encounter Date Assessment Date Assessment LastModified by Organization Details LastModified Time 05/05/2024 05/05/2024 Patient is ___weeks . Discussed plan. Not available 05/05/2024 16:48:29 05/19/2024 05/19/2024 Patient is ___weeks . Discussed plan. Not available 05/19/2024 16:30:31 06/03/2024 06/03/2024 Patient is ___weeks . Discussed plan. Not available 06/03/2024 09:28:35 Plan of Treatment Reminders Order Date Submit Date Provider Last Modified By Organization Details Last Modified Time Details Appointments OB ROUTINE 2024 03:15P Julian TRUJILLO MD Not available Not available Not available Lab unlisted lab - CMP/CBC/u george acid 2023 024 [facility] (Lab), [address], [place], [address], 06/04/2024 04:47:25 protein:c reatinine ratio, urine 2023 024 [facility] (Lab), [address], [place], [address], 06/04/2024 04:47:26 Referral None recorded. Procedures None recorded. Surgeries None recorded. Imaging US, obstetric , 2nd or 3rd trimester 2023 024 [email or web address], [address], [address], [place], [address], 05/06/2024 09:02:20 Medication Orders None recorded. Patient TargetsNo targets recorded. Patient InstructionsNo instructions recorded. Reason for Referral None Reported. Results Created Date Observation Date Name Description Value Unit Range Abnormal Flag Note LastModifiedBy Organization Detail LastModifiedTime 04/28/20 24 04/28/2024 PROTE IN/CR EATIN INE RATIO , URINE creatinine, urine 36.9 mg/dL R-No refer ence range estab lishe d for this assay Not Available [facility] (Lab) [address] , [place], [address], 04/29/2024 05:18:31 04/28/20 24 04/28/2024 PROTE IN/CR EATIN INE RATIO , URINE protein, urine <4 mg/dL R-No refer ence range estab lishe d for this assay Not Available [facility] (Lab) [address], [place], [address], 04/29/2024 05:18:31 04/28/20 24 04/28/2024 PROTE IN/CR EATIN INE RATIO , URINE protein/crea tinine ratio, urine . No Refer ence Range avail able for Rando m Urine s. Unabl e to perfo rm calcu latio n due to low lori te radha ntrat ion A prote in to creat inine ratio of >=0.1 9 is a good predi ctor of signi fican t prote inuri a. A level of <0.14 can rule out signi fican t prote inuri a. Not Available [facility] (Lab) [address], [place], [address], 04/29/2024 05:18:31 04/28/20 24 04/28/2024 CBC W/DIF F WBC 8.6 10'3/ uL 3.5-10 .5 Not Available [facility] (Lab) [address], [place], [address], 04/29/2024 06:59:40 04/28/20 24 04/28/2024 CBC W/DIF F RBC 3.97 10'6/ uL (based on docume nted legal sex) 3.80-5 .20 Not Available [facility] (Lab) [address], [place], [address], 04/29/2024 06:59:40 04/28/20 24 04/28/2024 CBC W/DIF F HGB 12.3 g/dL (based on docume nted legal sex) 11.6-1 5.4 Not Available [facility] (Lab) [address], [place], [address], 04/29/2024 06:59:40 04/28/20 24 04/28/2024 CBC W/DIF F HCT 36.0 % (based on docume nted legal sex) 34.0-4 5.0 Not Available [facility] (Lab) [address], [place], [address], 04/29/2024 06:59:40 04/28/20 24 04/28/2024 CBC W/DIF F MCV 90.7 fL 80.0-9 9.0 Not Available [facility] (Lab) [address], [place], [address], 04/29/2024 06:59:40 04/28/20 24 04/28/2024 CBC W/DIF F MCH 31.0 pg 27.0-3 4.0 Not Available [facility] (Lab) [address] [place], [address], 04/29/2024 06:59:40 04/28/20 24 04/28/2024 CBC W/DIF F MCHC 34.2 g/dL 32.0-3 5.5 Not Available [facility] (Lab) [address] [place], [address], 04/29/2024 06:59:40 04/28/20 24 04/28/2024 CBC W/DIF F RDW 13.2 % 11.0-1 5.0 Not Available [facility] (Lab) [address] [facility], [place], [address], 04/29/2024 06:59:40 04/28/20 24 04/28/2024 CBC W/DIF F plt 288 10'3/ uL 150-40 0 Not Available [facility] (Lab) [address], [place], [address], 04/29/2024 06:59:40 04/28/20 24 04/28/2024 CBC W/DIF F MPV 11.5 fL 8.8-12 .1 Not Available [facility] (Lab) [address] [facility], [place], [address], 04/29/2024 06:59:40 04/28/20 24 04/28/2024 CBC W/DIF F NRBC's 0.0 % 0.0 Not Available [facility] (Lab) [address] [facility], [place], [address], 04/29/2024 06:59:40 04/28/20 24 04/28/2024 CBC W/DIF F absolute NRBCs 0.0 10'3/ uL no refere nce range establ ished Not Available [facility] (Lab) [address], [place], [address], 04/29/2024 06:59:40 04/28/20 24 04/28/2024 CBC W/DIF F neutrophils 75.3 % 34.0-7 3.0 high Not Available [facility] (Lab) [address] [facility], [place], [address], 04/29/2024 06:59:40 04/28/20 24 04/28/2024 CBC W/DIF F lymphocytes 19.6 % 15.0-5 0.0 Not Available [facility] (Lab) [address] [facility], [place], [address], 04/29/2024 06:59:40 04/28/20 24 04/28/2024 CBC W/DIF F monocytes 4.1 % 1.0-15 .0 Not Available [facility] (Lab) [address] [facility], [place], [address], 04/29/2024 06:59:40 04/28/20 24 04/28/2024 CBC W/DIF F eosinophils 0.5 % 0.0-8. 0 Not Available [facility] (Lab) [address] [facility], [place], [address], 04/29/2024 06:59:40 04/28/20 24 04/28/2024 CBC W/DIF F basophils 0.3 % 0.0-2. 0 Not Available [facility] (Lab) [address] [place], [address], 04/29/2024 06:59:40 04/28/20 24 04/28/2024 CBC W/DIF F immature granulocytes 0.2 % no define d refere nce range Not Available [facility] (Lab) [address] [facility], [place], [address], 04/29/2024 06:59:40 04/28/20 24 04/28/2024 CBC W/DIF F absolute neutrophils 6.5 10'3/ uL 1.5-8. 0 Not Available [facility] (Lab) [address] [place], [address], 04/29/2024 06:59:40 04/28/20 24 04/28/2024 CBC W/DIF F absolute lymphocytes 1.7 10'3/ uL 1.0-4. 0 Not Available [facility] (Lab) [address] [place], [address], 04/29/2024 06:59:40 04/28/20 24 04/28/2024 CBC W/DIF F absolute monocytes 0.4 10'3/ uL 0.2-1. 0 Not Available [facility] (Lab) [address] [facility], [place], [address], 04/29/2024 06:59:40 04/28/20 24 04/28/2024 CBC W/DIF F absolute eosinophils 0.0 10'3/ uL 0.0-0. 6 Not Available [facility] (Lab) [address] [facility], [place], [address], 04/29/2024 06:59:40 04/28/20 24 04/28/2024 CBC W/DIF F absolute basophils 0.0 10'3/ uL 0.0-0. 3 Not Available [facility] (Lab) [address] [facility], [place], [address], 04/29/2024 06:59:40 04/28/20 24 04/28/2024 CBC W/DIF F absolute immature granulocytes 0.0 10'3/ uL 0.00-0 .10 04/29 5:36 AM: P indic ates parti al resul ts on a panel have been relea sed. Addit ional resul ts will follo w. 04/29 5:36 AM: This resul t has been final verif ied. No addit ional or donnelly ed resul ts are expec roseann. Not Available [facility] (Lab) [address] [facility], [place], [address], 04/29/2024 06:59:40 04/28/20 24 04/28/2024 URIC ACID uric acid 4.8 mg/dL 2.3-6. 6 Not Available [facility] (Lab) [address] [facility], [place], [address], 04/29/2024 06:59:41 04/28/20 24 04/28/2024 CMP(C OMPRE HENSI VE METAB OLIC PANEL ) sodium 137 mmol/ L 133-14 6 Not Available [facility] (Lab) [address] [place], [address], 04/29/2024 06:59:41 04/28/20 24 04/28/2024 CMP(C OMPRE HENSI VE METAB OLIC PANEL ) potassium 3.7 mmol/ L 3.5-5. 1 Not Available [facility] (Lab) [address] [facility], [place], [address], 04/29/2024 06:59:41 04/28/20 24 04/28/2024 CMP(C OMPRE HENSI VE METAB OLIC PANEL ) chloride 102 mmol/ L 98-107 Not Available [facility] (Lab) [address] [facility], [place], [address], 04/29/2024 06:59:41 04/28/20 24 04/28/2024 CMP(C OMPRE HENSI VE METAB OLIC PANEL ) carbon dioxide 24 mmol/ L 21-31 Not Available [facility] (Lab) [address] [facility], [place], [address], 04/29/2024 06:59:41 04/28/20 24 04/28/2024 CMP(C OMPRE HENSI VE METAB OLIC PANEL ) anion gap 11 mmol/ L 4-13 Not Available [facility] (Lab) [address] [facility], [place], [address], 04/29/2024 06:59:41 04/28/20 24 04/28/2024 CMP(C OMPRE HENSI VE METAB OLIC PANEL ) blood urea nitrogen 5 mg/dL 7-25 low Not Available [facility] (Lab) [address] [facility], [place], [address], 04/29/2024 06:59:41 04/28/20 24 04/28/2024 CMP(C OMPRE HENSI VE METAB OLIC PANEL ) creatinine 0.54 mg/dL 0.60-1 .30 low Not Available [facility] (Lab) [address] [facility], [place], [address], 04/29/2024 06:59:41 04/28/20 24 04/28/2024 CMP(C OMPRE HENSI VE METAB OLIC PANEL ) egfrcr (CKD-epi 2020) >90 mL/mi n/1.7 3_m2 >=60 Not Available [facility] (Lab) [address] [facility], [place], [address], 04/29/2024 06:59:41 04/28/20 24 04/28/2024 CMP(C OMPRE HENSI VE METAB OLIC PANEL ) calcium 8.9 mg/dL 8.3-10 .5 Not Available [facility] (Lab) [address] [facility], [place], [address], 04/29/2024 06:59:41 04/28/20 24 04/28/2024 CMP(C OMPRE HENSI VE METAB OLIC PANEL ) glucose 82 mg/dL 70-100 Not Available [facility] (Lab) [address] [facility], [place], [address], 04/29/2024 06:59:41 04/28/20 24 04/28/2024 CMP(C OMPRE HENSI VE METAB OLIC PANEL ) protein, total 6.6 g/dL 6.4-8. 3 Not Available [facility] (Lab) [address] [facility], [place], [address], 04/29/2024 06:59:41 04/28/20 24 04/28/2024 CMP(C OMPRE HENSI VE METAB OLIC PANEL ) albumin 3.8 g/dL 3.5-5. 0 Not Available [facility] (Lab) [address] [facility], [place], [address], 04/29/2024 06:59:41 04/28/20 24 04/28/2024 CMP(C OMPRE HENSI VE METAB OLIC PANEL ) ALT 13 units /L 9-43 Not Available [facility] (Lab) [address] [facility], [place], [address], 04/29/2024 06:59:41 04/28/20 24 04/28/2024 CMP(C OMPRE HENSI VE METAB OLIC PANEL ) alkaline phosphatase 83 units /L 34-104 Not Available [facility] (Lab) [address] [facility], [place], [address], 04/29/2024 06:59:41 04/28/20 24 04/28/2024 CMP(C OMPRE HENSI VE METAB OLIC PANEL ) AST 13 units /L 13-39 Not Available [facility] (Lab) [address] [facility], [place], [address], 04/29/2024 06:59:41 04/28/20 24 04/28/2024 CMP(C OMPRE HENSI VE METAB OLIC PANEL ) bilirubin, total 0.3 mg/dL 0.2-1. 2 Not Available [facility] (Lab) [address] [facility], [place], [address], 04/29/2024 06:59:41 06/03/20 24 06/03/2024 CMP/C BC/UR IC ACID WBC 9.6 10'3/ uL 3.5-10 .5 Not Available [facility] (Lab) [address] [facility], [place], [address], 06/04/2024 04:47:24 06/03/20 24 06/03/2024 CMP/C BC/UR IC ACID RBC 3.85 10'6/ uL (based on docume nted legal sex) 3.80-5 .20 Not Available [facility] (Lab) [address] [facility], [place], [address], 06/04/2024 04:47:24 06/03/20 24 06/03/2024 CMP/C BC/UR IC ACID HGB 12.1 g/dL (based on docume nted legal sex) 11.6-1 5.4 Not Available [facility] (Lab) [address] [place], [address], 06/04/2024 04:47:24 06/03/20 24 06/03/2024 CMP/C BC/UR IC ACID HCT 36.4 % (based on docume nted legal sex) 34.0-4 5.0 Not Available [facility] (Lab) [address], [place], [address], 06/04/2024 04:47:24 06/03/20 24 06/03/2024 CMP/C BC/UR IC ACID MCV 94.5 fL 80.0-9 9.0 Not Available [facility] (Lab) [address], [place], [address], 06/04/2024 04:47:24 06/03/20 24 06/03/2024 CMP/C BC/UR IC ACID MCH 31.4 pg 27.0-3 4.0 Not Available [facility] (Lab) [address], [place], [address], 06/04/2024 04:47:24 06/03/20 24 06/03/2024 CMP/C BC/UR IC ACID MCHC 33.2 g/dL 32.0-3 5.5 Not Available [facility] (Lab) [address], [place], [address], 06/04/2024 04:47:24 06/03/20 24 06/03/2024 CMP/C BC/UR IC ACID RDW 13.3 % 11.0-1 5.0 Not Available [facility] (Lab) [address] [place], [address], 06/04/2024 04:47:24 06/03/20 24 06/03/2024 CMP/C BC/UR IC ACID plt 291 10'3/ uL 150-40 0 Not Available [facility] (Lab) [address] [place], [address], 06/04/2024 04:47:24 06/03/20 24 06/03/2024 CMP/C BC/UR IC ACID MPV 11.8 fL 8.8-12 .1 Not Available [facility] (Lab) [address] [place], [address], 06/04/2024 04:47:24 06/03/20 24 06/03/2024 CMP/C BC/UR IC ACID NRBC's 0.0 % 0.0 Not Available [facility] (Lab) [address] [facility], [place], [address], 06/04/2024 04:47:24 06/03/20 24 06/03/2024 CMP/C BC/UR IC ACID absolute NRBCs 0.0 10'3/ uL no refere nce range establ ished Not Available [facility] (Lab) [address] [facility], [place], [address], 06/04/2024 04:47:24 06/03/20 24 06/03/2024 CMP/C BC/UR IC ACID neutrophils 77.7 % 34.0-7 3.0 high Not Available [facility] (Lab) [address] [facility], [place], [address], 06/04/2024 04:47:24 06/03/20 24 06/03/2024 CMP/C BC/UR IC ACID lymphocytes 17.0 % 15.0-5 0.0 Not Available [facility] (Lab) [address] [facility], [place], [address], 06/04/2024 04:47:24 06/03/20 24 06/03/2024 CMP/C BC/UR IC ACID monocytes 4.3 % 1.0-15 .0 Not Available [facility] (Lab) [address] [facility], [place], [address], 06/04/2024 04:47:24 06/03/20 24 06/03/2024 CMP/C BC/UR IC ACID eosinophils 0.4 % 0.0-8. 0 Not Available [facility] (Lab) [address] [place], [address], 06/04/2024 04:47:24 06/03/20 24 06/03/2024 CMP/C BC/UR IC ACID basophils 0.2 % 0.0-2. 0 Not Available [facility] (Lab) [address] [facility], [place], [address], 06/04/2024 04:47:24 06/03/20 24 06/03/2024 CMP/C BC/UR IC ACID immature granulocytes 0.4 % no define d refere nce range Not Available [facility] (Lab) [address] [facility], [place], [address], 06/04/2024 04:47:24 06/03/20 24 06/03/2024 CMP/C BC/UR IC ACID absolute neutrophils 7.5 10'3/ uL 1.5-8. 0 Not Available [facility] (Lab) [address] [facility], [place], [address], 06/04/2024 04:47:24 06/03/20 24 06/03/2024 CMP/C BC/UR IC ACID absolute lymphocytes 1.6 10'3/ uL 1.0-4. 0 Not Available [facility] (Lab) [address] [facility], [place], [address], 06/04/2024 04:47:24 06/03/20 24 06/03/2024 CMP/C BC/UR IC ACID absolute monocytes 0.4 10'3/ uL 0.2-1. 0 Not Available [facility] (Lab) [address] [place], [address], 06/04/2024 04:47:24 06/03/20 24 06/03/2024 CMP/C BC/UR IC ACID absolute eosinophils 0.0 10'3/ uL 0.0-0. 6 Not Available [facility] (Lab) [address] [place], [address], 06/04/2024 04:47:24 06/03/20 24 06/03/2024 CMP/C BC/UR IC ACID absolute basophils 0.0 10'3/ uL 0.0-0. 3 Not Available [facility] (Lab) [address] [facility], [place], [address], 06/04/2024 04:47:24 06/03/20 24 06/03/2024 CMP/C BC/UR IC ACID absolute immature granulocytes 0.0 10'3/ uL 0.00-0 .10 025 2:35 AM: P indic ates parti al resul ts on a panel have been relea sed. Addit ional resul ts will follo w. 025 2:35 AM: This resul t has been final verif ied. No addit ional or donnelly ed resul ts are expec roseann. Not Available [facility] (Lab) [address] [facility], [place], [address], 06/04/2024 04:47:24 06/03/20 24 06/03/2024 CMP/C BC/UR IC ACID uric acid 4.8 mg/dL 2.3-6. 6 Not Available [facility] (Lab) [address] [facility], [place], [address], 06/04/2024 04:47:24 06/03/20 24 06/03/2024 CMP/C BC/UR IC ACID sodium 136 mmol/ L 133-14 6 Not Available [facility] (Lab) [address] [facility], [place], [address], 06/04/2024 04:47:24 06/03/20 24 06/03/2024 CMP/C BC/UR IC ACID potassium 4.1 mmol/ L 3.5-5. 1 Not Available [facility] (Lab) [address] [facility], [place], [address], 06/04/2024 04:47:24 06/03/20 24 06/03/2024 CMP/C BC/UR IC ACID chloride 103 mmol/ L 98-107 Not Available [facility] (Lab) [address] [facility], [place], [address], 06/04/2024 04:47:24 06/03/20 24 06/03/2024 CMP/C BC/UR IC ACID carbon dioxide 23 mmol/ L 21- Not Available [facility] (Lab) [address], [place], [address], 06/04/2024 04:47:24 06/03/20 24 06/03/2024 CMP/C BC/UR IC ACID anion gap 10 mmol/ L 4-13 Not Available [facility] (Lab) [address], [place], [address], 06/04/2024 04:47:24 06/03/20 24 06/03/2024 CMP/C BC/UR IC ACID blood urea nitrogen 9 mg/dL 7-25 Not Available [facility] (Lab) [address], [place], [address], 06/04/2024 04:47:24 06/03/20 24 06/03/2024 CMP/C BC/UR IC ACID creatinine 0.57 mg/dL 0.60-1 .30 low Not Available [facility] (Lab) [address], [place], [address], 06/04/2024 04:47:24 06/03/20 24 06/03/2024 CMP/C BC/UR IC ACID egfrcr (CKD-epi 2020) >90 mL/mi n/1.7 3_m2 >=60 Not Available [facility] (Lab) [address], [place], [address], 06/04/2024 04:47:24 06/03/20 24 06/03/2024 CMP/C BC/UR IC ACID calcium 9.1 mg/dL 8.3-10 .5 Not Available [facility] (Lab) [address] [place], [address], 06/04/2024 04:47:24 06/03/20 24 06/03/2024 CMP/C BC/UR IC ACID glucose 95 mg/dL 70-100 Not Available [facility] (Lab) [address] [place], [address], 06/04/2024 04:47:24 06/03/20 24 06/03/2024 CMP/C BC/UR IC ACID protein, total 6.9 g/dL 6.4-8. 3 Not Available [facility] (Lab) [address] [facility], [place], [address], 06/04/2024 04:47:24 06/03/20 24 06/03/2024 CMP/C BC/UR IC ACID albumin 3.8 g/dL 3.5-5. 0 Not Available [facility] (Lab) [address] [facility], [place], [address], 06/04/2024 04:47:24 06/03/20 24 06/03/2024 CMP/C BC/UR IC ACID ALT 14 units /L 9-43 Not Available [facility] (Lab) [address] [place], [address], 06/04/2024 04:47:24 06/03/20 24 06/03/2024 CMP/C BC/UR IC ACID alkaline phosphatase 96 units /L 34-104 Not Available [facility] (Lab) [address] [facility], [place], [address], 06/04/2024 04:47:24 06/03/20 24 06/03/2024 CMP/C BC/UR IC ACID AST 12 units /L 13-39 low Not Available [facility] (Lab) [address] [place], [address], 06/04/2024 04:47:24 06/03/20 24 06/03/2024 CMP/C BC/UR IC ACID bilirubin, total 0.3 mg/dL 0.2-1. 2 Not Available [facility] (Lab) [address] [place], [address], 06/04/2024 04:47:24 06/03/20 24 06/03/2024 PROTE IN/CR EATIN INE RATIO , URINE creatinine, urine 101.8 mg/dL R-No refer ence range estab lishe d for this assay Not Available [facility] (Lab) [address] [facility], [place], [address], 06/04/2024 04:47:26 06/03/20 24 06/03/2024 PROTE IN/CR EATIN INE RATIO , URINE protein, urine 19 mg/dL R-No refer ence range estab lishe d for this assay Not Available [facility] (Lab) [address] [facility], [place], [address], 06/04/2024 04:47:26 06/03/20 24 06/03/2024 PROTE IN/CR EATIN INE RATIO , URINE protein/crea tinine ratio, urine 0.19 . No Refer ence Range avail able for Rando m Urine s. A prote in to creat inine ratio of >=0.1 9 is a good predi ctor of signi fican t prote inuri a. A level of <0.14 can rule out signi fican t prote inuri a. Not Available [facility] (Lab) [address] [facility], [place], [address], 06/04/2024 04:47:26 05/05/20 24 05/06/2024 US, obste tric, 2nd or 3rd trime ster No observ ation record ed. [email or web address] [place] [address], [place], [address], 05/06/2024 13:02:24 05/05/20 24 05/05/2024 US, obste tric, follo w-up No observ ation record ed. [email or web address] [address], [place], [address], 05/05/2024 23:01:08 06/02/20 24 05/30/2024 US, obste tric, follo w-up No observ ation record ed. [email or web address] [facility] [address] [place], [address], 06/06/2024 10:12:25 06/02/20 24 05/30/2024 US, obste tric, follo w-up No observ ation record ed. [email or web address] [facility] [address] [place], [address], 06/05/2024 07:25:53 06/23/19 25 05/30/2024 US, obste tric, follo w-up No observ ation record ed. [email or web address] [facility] [address], [place], [address], 06/27/2024 13:41:49 Result Notes None recorded. Problems Name Problem SNOMED Code Status Onset Date Resolution Date Notes Provider Name and Address Organization Details Recorded Time Surveill ance of contrace ption Completed 201706/22/2020 Encounte r for surveill ance of contrace ptives, unspecif ied;Ray rded Elsewher e: No Locat ion: [facility] S ource: EHR Tilesetter gabi: N Practi ce ID: [id number] Jordi lable Time: 02:45:00 PM Carmen goldberg [facility] 11:56:[address] Concept Completed 201706/22/2020 Well woman check w/o abnormal finding; Recorded Elsewher e: No Locat ion: [facility] S ource: EHR Tilesetter gabi: N Practi ce ID: [id number] Jordi lable Time: 02:45:00 PM Carmen goldberg [facility] 11:56:[address] Concept Completed 201706/22/2020 Encntr for routine child health exam w/o abnormal findings ;Recorde d Elsewher e: No Locat ion: [facility] S ource: EHR Tilesetter gabi: N Practi ce ID: [id number] Jordi lable Time: 02:45:00 PM Carmen goldberg [facility] 1 11:56:00 Uses combined oral contrace ption [id number] Completed 201706/22/2020 Encounte r for surveill ance of contrace ptive pills;Pr actice ID: [id number] Carmen Vasquez null, [facility] 1 11:55:58 Hyperten sive disorder 50059746 Active 2022 [facility], [facility] 3 14:50:42 Mixed anxiety and depressi ve disorder 685179085 Active not treated Dian Trujillo MD [address], [place], [address], [facility] 4 15:50:21 Asthma 262473141 Active [facility], [facility] 4 15:44:53 Pregnanc y 50743127 Active 2023 [facility], [facility] 4 15:44:34 Asthma 849083186 Active [facility], [facility] 4 15:44:53 [facility] hyperten loly 00763362 Active 38wk delivery 04/28 - 200mg bid [place], bASA 2 tablets daily & MFM consult per SB - order faxed 04/29 schedule d 05/30 969 US and office visit MFM pt monitor BP at home send weekly log Antental testing @ 32wks [facility], [facility] 5 22:18:21 Mixed anxiety and depressi ve disorder 827320745 Active not treated Dian Trujillo MD [address], [place], [address], [facility] 4 15:50:21 Body mass index 30+ - obesity 677305391 Active weekly antenata l testing at 37wks Shazia Noyola [facility] 5 22:17:44 Body mass index 30+ - obesity 115571553 Active weekly antenata l testing at 37wks Shazia Noy[facility] 5 22:17:44 Problem Notes None recorded. Procedures Surgical History Date Name Laterality Status Provider Name and Address Organization Details Recorded Time 4 Date of Last Pap Smear completed Praveena Vinson [facility] 02/11/2024 14:41:19 1 extraction of wisdom tooth completed Praveena Vinson [facility] 06/08/2022 14:51:58 Imaging Results Imaging Date Name Status LastModified by Organiz ation Details LastModified Time 05/06/2024 US, obstetric, 2nd or 3rd trimester completed [email or web address] [place] [address], [place], [address], 05/06/2024 13:02:24 05/05/2024 US, obstetric, follow-up completed [email or web address] [facility] [address], [place], [address], 05/05/2024 23:01:08 05/30/2024 US, obstetric, follow-up completed [facility] [address], [address], 06/06/2024 10:12:25 05/30/2024 US, obstetric, follow-up completed [email or web address] [facility] [address], [address], 06/05/2024 07:25:53 05/30/2024 US, obstetric, follow-up completed [email or web address] [facility] [address], [place], [address], 06/27/2024 13:41:49 Procedure Notes None recorded. Medical Equipment None Reported. Allergies Allergen ID Allergen Name Allergen Category Reaction Reaction Severity Criticality Documentation Date Start Date Code Code System Note Provider Name and Address Organization Details Recorded Time 19574 vancomyci n medicatio n Not available Not available Not available 02/11/[address] [facility] 4 14:46:41 Medications Name Sig Start Date Stop Date Status Note LastModified by Organization Details LastModified Time amoxicillin 500 mg capsule 02/10 completed Not Available Not Available Not Available labetalol 200 mg tablet TAKE 1 TABLET TWICE A DAY BY ORAL ROUTE. 2023 active Not Available Not Available Not Avai lable metronidazo le 0.75 % (37.5 mg/5 gram) vaginal gel INSERT 1 APPLICATO RFUL INTO VAGINA ONCE DAILY FOR 5 DAYS 07/26 completed Not Available Not Available Not Available Diflucan 150 mg tablet Take 1 tablet by oral route. 10/15 completed Not Available Not Available Not Available ciprofloxac in 500 mg tablet TAKE 1 TABLET BY MOUTH EVERY 12 HOURS FOR 3 DAYS 06/20 completed Not Available Not Available Not Available sulfamethox azole 800 mg-trimetho prim 160 mg tablet TAKE 1 TABLET BY MOUTH EVERY 12 HOURS FOR 10 DAYS 11/02 completed Not Available Not Available Not Available amoxicillin 500 mg tablet TAKE 1 TABLET BY MOUTH EVERY 12 HOURS 02/10 completed Not Available Not Available Not Available alprazolam 0.25 mg tablet 02/10 completed Not Available Not Available Not Available clindamycin 1 % topical gel 07/26 completed Not Available Not Available Not Available misoprostol 200 mcg tablet INSERT ALL 4 TABLETS VAGINALLY AT ONCE 02/10 completed Not Available Not Available Not Available buspirone 7.5 mg tablet TAKE 1 TABLET BY MOUTH TWICE DAILY 06/08 completed Not Available Not Available Not Available hydroxyzine HCl 25 mg tablet 02/10 completed Not Available Not Available Not Available lisinopril 5 mg tablet TAKE 1 TABLET BY MOUTH DAILY 02/10 completed Not Available Not Available Not Available mupirocin 2 % topical ointment APPLY A SMALL AMOUNT TOPICALLY TO THE AFFECTED AREA THREE TIMES DAILY FOR 10 DAYS 11/02 completed Not Available Not Available Not Available methylpredn isolone 4 mg tablets in a dose pack 07/26 completed Not Available Not Available Not Available albuterol sulfate HFA 90 mcg/actuati on aerosol inhaler INHALE 2 PUFFS BY MOUTH EVERY 4 HOURS NEEDED FOR SHORTNESS OF BREATH OR WHEEZING active Not Available Not Available No t Available lisinopril 2.5 mg tablet 07/05 completed Not Available Not Available Not Available doxycycline hyclate 100 mg tablet TAKE 1 TABLET BY MOUTH TWICE DAILY FOR 7 DAYS 07/26 completed Not Available Not Available Not Available buspirone 15 mg tablet 02/10 completed Not Available Not Available Not Available Sprintec (28) 0.25 mg-35 mcg tablet Take 1 tablet every day by oral route. 10/15 completed Not Available Not Available Not Available Aishwarya 0.35 mg tablet 08/30 completed Not Available Not Available Not Available nitrofurant oin monohydrate /macrocryst als 100 mg capsule TAKE 1 CAPSULE BY MOUTH EVERY 12 HOURS FOR 7 DAYS 02/10 completed Not Available Not Available Not Available alprazolam 03/10 completed Not Available Not Available Not Available lisinopril 02/10 completed Not Available Not Available Not Available Neli Fe 06/23 (28) 1 mg-20 mcg (21)/75 mg (7) tablet 07/05 completed Not Available Not Available Not Available ID NOW COVID-19 Test Kit TEST DIRECTED 07/26 completed Not Available Not Available Not Available COVID-19 test specimen collection DIRECTED 07/26 completed Not Available Not Available Not Available Vitals Date Recorded Body weight Systolic blood pressure Diastolic blood pressure Provider Name and Address Organization Details Last Updated DateTime 05/05/2024 707171.799 32 g 165 mm[Hg] 110 mm[Hg] Andreina Harris [facility] 05/05/2024 16:49:40 Date Recorded Body weight Systolic blood pressure Diastolic blood pressure Provider Name and Address Organization Details Last Updated DateTime 05/19/2024 929661.984 06 g 167 mm[Hg] 99 mm[Hg] Andreina Steven [facility] 05/19/2024 16:31:59 Date Recorded Body weight Body mass index (BMI) Body height Systolic blood pressure Diastolic blood pressure Provider Name and Address Organization Details Last Updated DateTime 06/03/2024 181862.3 5354 g 37.9 kg/m2 170.18 cm 144 mm[Hg] 93 mm[Hg] Andreina Steven [facility] 09:35:34 Social History Question Answer Notes LastModified by Organizat ion Details LastModified Time Tobacco Smoking Status Never Smoker Praveena goldberg, [facility] 07/05/2022 10:29:23 Do You Have An Advance Directive? No Information n ot available 11/02/2020 What Is Your Level Of Alcohol Consumption? None Information not available 06/22/2020 Are You Blind Or Do You Have Difficulty Seeing? No [email or web address] Information n ot available 11/02/2020 What Is Your Level Of Caffeine Consumption? Occasional [email or web address] Information not available 06/22/2020 How Much Tobacco Do You Chew? None [email or web address] Information not available 11/02/2020 In The 14 Days Before Symptom Onset, Have You Had Close Contact With A Laboratory-confirm ed COVID-19 While That Case Was Ill? No Information n ot available 11/02/2020 In The 14 Days Before Symptom Onset, Have You Had Close Contact With A Person Who Is Under Investigation For COVID-19 While That Person Was Ill? No [email or web address] Information not available 11/02/2020 Have You Been To An Area Known To Be High Risk For COVID-19? No Information not available 11/02/2020 Are You Deaf Or Do You Have Serious Difficulty Hearing? No [email or web address] Information not available 11/02/2020 What Type Of Diet Are You Following? REGULAR [email or web address] Information n ot available 11/02/2020 What Is The Highest Grade Or Level Of School You Have Completed Or The Highest Degree You Have Received? 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 Yes [email or web address] Information not available 11/02/2020 Do You Use Protection During Sex? No [email or web address] Information not available 02/11/2024 Do You Use Your Seat Belt Or Car Seat Routinely? Yes [email or web address] Information not available 11/02/2020 Do You Have Smoke And Carbon Monoxide Detectors In Your Home? Yes [email or web address] Information not available 11/02/2020 How Much Tobacco Do You Smoke? No [email or web address] Information not available 11/02/2020 Do You Feel Stressed (tense, Restless, Nervous, Or Anxious, Or Unable To Sleep At Night)? [id number] [email or web address] Information not available 11/02/2020 Do You Use Any Illicit Or Recreational Drugs? No [email or web address] Information not available 06/22/2020 Do You Use Sunscreen Routinely? Yes [email or web address] Information not available 11/02/2020 Has Tobacco Cessation Counseling Been Provided? No [email or web address] Information not available 07/05/2022 Have You Used IV Drugs? No [email or web address] Information not available 11/02/2020 Do You Or Have You Ever Used Any Other Forms Of Tobacco Or Nicotine? No [email or web address] Information not available 07/05/2022 Sex: Unknown Functional Status Question Answer Note LastModified by Organizat ion Details LastModified Time Do you have difficulty walking or climbing stairs? No [email or web address] Information not available 07/05/2022 Are you able to walk? [email or web address] Information not available 11/02/2020 Are you able to care for yourself? Yes [email or web address] Information not available 07/05/2022 Do you have difficulty dressing or bathing? No Information not available 07/05/2022 What is your exercise level? Occasional [email or web address] Information not available 06/22/2020 Mental Status None recorded. Family History Relationship Description Onset Age of this Age Resolved Age Notes LastModified by Organization Details LastModified Time Father No current problems or disability [email or web address] Not available 01/19 /2021 11:56:45 Mother No current problems or disability [email or web address] Not available 06/22 11:56:45 Medical History Condition Response Allergies (Food, seasonal, environmental ) Y Other N Drug/Latex Allergies/Reactions N Blood Transfusion N Breast Cancer N Dermatologic Disorders N Lung Disease N Defects or Inherited Disease N Breast Problem N Gestational Diabetes N Hematologic disorders N Anesthesia Complications N History of STI N Deep Vein Thrombosis N Polycystic ovary syndrome N Anxiety Disorder Y Autoimmune disease N Arthritis N Polyps N Infertility N Acid Reflux (GERD) N History of abnormal pap N Cancer N Varicosities N Stroke N Neurologic/Epilepsy N Endometriosis N High Cholesterol N Fibromyalgia N Headaches N Kidney Disease N Heart Problems Y Thyroid Problems N Kidney or Bladder Problems N GI Problems N Eating Disorder N Anemia N Art (IVF or FET) N Psychiatric Illness N Ovarian Cancer N Diabetes N Pulmonary (TB, Asthma) N Hepatitis/Liver Disease N Eczema N Urinary Tract Infection N Abuse/Domestic Violence N Asthma Y Trauma/Violence N Depression/ depression Y Heart Disease N Pre-Eclampsia N Hypertension Y Osteoporosis N Thrombophilias N Gynecological History Statement/Question Response Date of Last Mammogram Date of LMP 12/18/2023 N Was last menstrual period normal Y STIs/STDs N HPV Vaccine N Duration of Flow (days) 5 Current Control Method Date of Last Colonoscopy Frequency of Cycle (Q days) 25 Sexually Active? Y BCPs Date of DEXA bone scan Age of first menstrual cycle 12 Date of Last Pap Smear 02/11/2024 Sexual Problems? N Desired Control Method BCPs LMP Definite N Obstetrics History GPAL:G 2 P 0 0 1 0 Type Value Spontaneous 1 Living 0 Total 2 Past Encounters Encounter ID Performer Location Encounter Start Date Encounter Closed Date Diagnosis/Indication Diagnosis SNOMED-CT Code Diagnosis ICD10 Code Diagnosis Note [id number] Rocío Edmonds [facility] [address] [address] 06/22/2020 14:02:32 06/22/2020 15:04:44 Surveillance of contraception 989406142 Z30.40 Pt would like to restart ocp. Only stopped d/t lack of insurance. She is aware of the risks and benefits. She does not have any medical condition that is contraindi cated with the use of estrogen containing control. Pt will start her pills on the first sunday following the start of her period. She is aware it is not effective for control the first month. She is also aware of the importance of taking at the same time every day. Encouraged use of condoms as the pill does not protect against STD's. Will return in 3 months for med check and wwe. Consent was read and signed. Pt verbalized understand ing. Vaginitis 90468725 N76.0 Discussed use of mild soap like dove or ivory, cotton underwear w/out dye, hypoallerg enic detergent, wipe from front to back, avoid tub baths, keep perineum clean and dry, d/c use of baby wipes. Encouraged daily intake of yogurt or womens health probiotic. Internal and external affirm collected. Additional precaution yasmin measures were taken to minimize potential exposure to the Covid-19 virus during this patient? s visit, including available hand erp technical lead upon arrive, temperatur e check and being asked a series of screening questions. All staff wore face coverings during this encounter, as well as provided additional cleaning and sanitizing of all surfaces, including countertop s, pens, chairs, door handles, light switches, etc, prior to and following the patient? s visit. [id number] Rocío [facility] [address] [address] 07/26/2020 14:14:39 07/26/2020 14:58:29 Vaginitis 31722294 N76.0 Discussed use of mild soap like dove or ivory, cotton underwear w/out dye, hypoallerg enic detergent, wipe from front to back, avoid tub baths, keep perineum clean and dry, d/c use of baby wipes. Encouraged daily intake of yogurt or womens health probiotic. Internal and external affirm collected along with STD screen. Will send out diflucan. Additional precaution yasmin measures were taken to minimize potential exposure to the Covid-19 virus during this patient? s visit, including available hand erp technical lead upon arrive, temperatur e check and being asked a series of screening questions. All staff wore face coverings during this encounter, as well as provided additional cleaning and sanitizing of all surfaces, including countertop s, pens, chairs, door handles, light switches, etc, prior to and following the patient? s visit. Contracept ion care management 099874129 Z30.9 Elevated blood pressure today. Pt states she has had an occasional elevation in the past d/t nerves. I have discussed risks of estrogen containing contracept ion. We discussed all other options. Pt has decided to start progestin only. Discussed importance of taking at the same time every day. Also informed that it may not be as effective as estrogen containing pills. She has verbalized understand ing. Will return in 3 months for med check. Elevated blood-pressure reading without diagnosis of hypertension 582666885 R03.0 Pt will call pcp for further evaluation . Discussed heart healthy diet and exercise. [id number] Rocío Edmonds [facility] [address],[place] [address] 10/18/2020 13:57:16 10/18/2020 14:16:26 Surveillance of oral contraception 696431857 Z30.41 Pt happy with new pill and would like to continue. [id number] Shraddha [facility] [address],[place] [address] 11/02/2020 12:00:56 11/02/2020 13:27:10 Vaginitis 40616167 N76.0 [id number] [facility] [address],[place] [address] 12/16/2020 09:25:26 12/16/2020 11:02:32 Increased frequency of urination 424239307 R35.0 [id number] Ingrid Khanna MD [facility] [address],[place] [address] 07/26/2021 11:44:20 07/26/2021 12:24:34 Urinary tract infectious disease 03698884 N39.0 Dysuria 52091136 R30.9 Initial pr escription of oral contraception 648538063 Z30.011 [id number] Ingrid Khanna MD [facility] [address],[place] [address] 08/30/2021 09:55:58 08/30/2021 10:30:52 Surveillance of oral contraception 058598451 Z30.41 [id number] Praveena Vinson [facility] [address],[place] [address] 06/08/2022 14:03:05 06/08/2022 15:00:16 Dysuria 75213339 R30.0 Urinary tr act infectious disease 80302159 N39.0 [id number] Rocío Edmonds [facility] [address],[place] [address] 06/20/2022 10:45:43 06/20/2022 11:46:08 test positive 534883106 Z32.01 Risk factors addressed: Tobacco Cessation, Safe Sexual Practices, environmen daniel, work hazards, travel restrictio ns, seat belt use.Eat a health well balanced diet, avoid alcohol, tobacco, and street drugs.Enga ge in daily low impact exercise, avoid temperatur e extremes, and cat, rodent, and bird feces.Avoi d travel to areas where zika virus is a concern.Of fered cf/sma/nip t. Handouts given and discussed with patient.Ch ildbirth classes recommende d.New OB sheet given.If previous , counseling . Will return for follow up sneak pevelasquez in 1-2 weeks. New OB and 1st look at 12 weeks. Will start baby aspirin for history of hypertensi on. Briefly discussed additional testing.Pt verbalizes that she understand s the importance of above instructio ns.All questions were answered.P atient reminded to have annual well woman examinatio n and address [facility] [place] [place] . [id number] Nancy Fowler [facility] [address],[place] [address] 06/20/2022 10:45:14 06/20/2022 11:28:10 screening 156920440 Z36.87 [id number] Ev Areans [facility] [address],[place] [address] 06/23/2022 10:57:34 06/23/2022 13:08:25 Dysuria 85194642 R30.0 Pt here for dysuria and feeling uncomforta ble during day. Pt had E. Coli on UC from 06/08 and was given rx for Cipro, but still having sxs. Pt left sample and showed +2 leuks. Reviewed with SP and to sent Macrobid and UC. Rx sent and UC sent. Pt informed and will take rx and call for UC results and will take AZO for sx relief in the meantime. Pt verbalized understand ing. LEFTY tracy [id number] Nancy Fowler [facility] [address],[place] [address] 07/05/2022 09:57:49 07/05/2022 13:33:51 Missed miscarriage 58393499 O02.1 Z3A.01 [id number] [facility] [address],[place] [address] 07/05/2022 10:29:08 07/05/2022 11:35:56 Missed miscarriage 21175083 O02.1 Acute urin yasmin tract infection 148326856 N39.0 increase water, urine for culture [id number] [facility] [address],[place] [address] 07/21/2022 15:42:41 07/24/2022 16:14:04 Miscarriage without complication 32143739 O03.9 Z3A.00 [id number] [facility] [address],[place] [address] 07/28/2022 15:31:42 07/28/2022 16:29:33 Retained products of conception 748595627 O02.1 Z3A.00 [id number] Mikael Trujillo MD [facility] [address],[place] [address] 08/07/2022 10:02:26 08/07/2022 16:40:25 Retained products of conception 592884153 O02.1 Z3A.00 22-year-ol d female with persistent ly elevated quantitati ve HCGs and possible retained products. The ultrasound is not specific for retained products. There was some nonspecifi c debris without blood flow present. It is small. Patient has no symptoms. We have a pending quantitati ve hCG. We will follow-up on that hCG in consider D&C if this is persistent ly high. It was 55 two weeks ago. [id number] [facility] [address],[place] [address] 02/11/2024 13:39:54 02/11/2024 14:20:51 [id number] Mikael Trujillo MD [facility] [address],[place] [address] 02/11/2024 13:41:01 02/12/2024 14:00:34 Amenorrhea 15487863 N91.2 this patient is a 23-year-ol d female who presents for amenorrhea . She is a positive test. Ultrasound revealed a 1st trimester gestation. Patient has no complaints . We talked about early care. Talked about genetic screening. We talked about her ultrasound results. We talked about the 12 week ultrasound that has genetic screening components . She was given recommenda tions on exercise, diet, over-the-c ounter medication s. We reviewed her obstetric history. We reviewed her medical history. We reviewed her social history. She will begin routine care at her next visit. [id number] [facility] [address],[place] [address] 03/10/2024 14:45:06 03/10/2024 15:17:27 screening 594607788 Z36.82 Z3A.11 [id number] Praveena Vinson [facility] [address],[place] [address] 03/10/2024 14:45:28 03/10/2024 16:04:58 Routine care 657852865 Z34.90 Gestation period, 11 weeks 64090075 Z3A.11 [id number] Mikael Trujillo MD [facility] [address],[place] [address] 04/10/2024 16:16:46 04/10/2024 17:30:34 Routine care 809261278 Z34.90 [id number] Mikael Trujillo MD [facility] [address],[place] [address] 04/14/2024 13:50:00 04/14/2024 14:42:58 [id number] Praveena Vinson [facility] [address],[place] [address] 04/28/2024 14:09:15 04/29/2024 10:04:44 Hypertensive disorder 60503373 I10 [id number] Nancy Fowler [facility] [address],[place] [address] 05/05/2024 15:24:47 05/05/2024 16:56:18 screening for malformation 867846035 Z36.3 Z3A.19 [id number] Mikael Trujillo MD [facility] [address],[place] [address] 05/05/2024 15:25:15 05/06/2024 06:17:49 Routine care 609530956 Z34.90 [id number] Mikael Trujillo MD [facility] [address],[place] [address] 05/19/2024 15:49:02 05/19/2024 17:10:47 Routine care 775615688 Z34.90 [id number] Mikael Trujillo MD [facility] [address],[place] [address] 06/03/2024 09:25:28 06/03/2024 10:21:42 Routine care 777913431 Z34.90 Pre-eclampsia 580882560 O14.92 Health Concerns Section Related Observation LastModified by Organization Detai ls LastModified Time None Recorded Concern Status LastModified by Organization Details LastModified Time None Recorded Advance Directives Directive N: Payers Encounter Date Sequence Insurance Name Policy Number Policy Pickard Covered Member ID Pickard Member ID Guarantor Name 05/05/2024 1 [facility] [id number] Ashley Hall [id number] Ashley Hall 05/05/2024 1 [facility] [id number] Ashley Hall [id number] Ashley Hall 05/19/2024 1 [facility] [id number] Ashley Hall [id number] Ashley Hall 06/03/2024 1 [facility] [id number] Ashley Hall [id number] Ashley Hall OBGyn Episode Ob Episode Information Episode Created Date Number of Fetuses Patient Bloodtype Patient rh Status Prepregnancy Weight lbs Domestic Partner Domestic Partner Phone Father Name [employer] Status 07/05/19 23 1 CLOSED Fetus Data First Name Last Name Admitted to NICU Weight (g) Sex Living Outcome Pediatric Complications Fetus ID Race Codes Race Delivery Type , Spontane ous [id number] Leon Calculation Initial Leon Date Initial Exam Date Initial Exam Provider Initial Ultrasound Date Last Menstrual Period Date Ultra Sound Weeks Gestation 0 Eighteen To Twenty Week Leon Update Ultra Sound Date Fundal Height At Umbil Quickening Date Ultra Sound Latest Weeks Gestation Final Leon Confirmed By Final Leon Confirmed Date Final Leon Date Ultra Sound Latest Days Gestation 0 0 Menstrual History Last Menstrual Date Menses Monthly On Bcp Conception Prior Menses Frequency Hcg Plus Date Menarche Onset Age Delivery Information Delivery Date Delivery Type Labor Anesthesia Weeks Gestation Incision Type Labor Labor Length Hrs Delivered By Post Complications Tubal Sterilization Discharge Date Comments 3 Discharge Information Feeding Method Contraceptive Method Maternal HG B and HCT Levels Ob Episode Information Episode Created Date Number of Fetuses Patient Bloodtype Patient rh Status Prepregnancy Weight lbs Domestic Partner Domestic Partner Phone Father Name [employer] Status 03/10/20 24 1 A Positive 236 Darlene Foster OPEN Fetus Data First Name Last Name Admitted to NICU Weight (g) Sex Living Outcome Pediatric Complications Fetus ID Race Codes Race Delivery Type [id number] Problems Problem Notes testing at 32wksLe gina II US Abdomen portal vein prominent measuring 6mm Problem Name Start Date End Date Resolution Snomed Code Not e Essential hypertension 7538906 0 38wk delivery 04/28 - 200mg bid Labetalol, bASA 2 tablets daily & MFM consult per SB - order faxed 04/29 scheduled 05/30 815 US and office visitM pt monitor BP at home send weekly logAntental testing @ 32wks Body mass index 30+ - obesity [id number] weekly antenata l testing at 37wks Asthma 413883846 Mixed anxiety and depressive disorder [id number] wendy whitfield currently Leon Calculation Initial Leon Date Initial Exam Date Initial Exam Provider Initial Ultrasound Date Last Menstrual Period Date Ultra Sound Weeks Gestation 09/23/2024 02/11/2024 Dr Trujillo 02/11/2024 12/18/2023 7 Eighteen To Twenty Week Leon Update Ultra Sound Date Fundal Height At Umbil Quickening Date Ultra Sound Latest Weeks Gestation Final Leon Confirmed By Final Leon Confirmed Date Final Leon Date Ultra Sound Latest Days Gestation 0 [email or web address] 04/10/2024 09/24/19 25 0 Pre-harvey Flowsheet Flowsheet Date 03/10/2024 Guillaume Score Blood Edema Fundus Height Fundus Units Glucose Ketones Leukocytes Nitrite Labor Signs Protein Cervic Dilation Cervic Effacement Cervic Station none none trace Type Weight in lbs Pre/Post Dialysis Refused Weight 238.581696434708 BP Diastolic BP Location Tested BP Systolic BP Type 98 153 90 140 Fetus Heart Rate Present A 167 Fetus Movement A No Comments this patient is a 23-year-ol d multiparous female at 12 weeks' gestation who presents for initial care. She has a history of term vaginal births. Her medical, surgical, obstetric history is unremarkable. She is vaccinated. She was given precautions recommendations for . We talked about vaccines in . Talked about care in detail. She is having genetic testing. She had a normal 12 week ultrasound. To begin routine care. Asthma, essential hypertension, anxiety depression Flowsheet Date 04/10/2024 Guillaume Score Blood Edema Fundus Height Fundus Units Glucose Ketones Leukocytes Nitrite Labor Signs Protein Cervic Dilation Cervic Effacement Cervic Station neg none none trace Type Weight in lbs Pre/Post Dialysis Refused [phone] BP Diastolic BP Location Tested BP Systolic BP Type 101 L arm 141 sitting 88 R arm 142 sitting Fetus Heart Rate Present A 144 Fetus Movement A No Comments Patient concerned about bloo d pressure. to monitor at home. rtc in 2 weeks Flowsheet Date 04/14/2024 Guillaume Score Blood Edema Fundus Height Fundus Units Glucose Ketones Leukocytes Nitrite Labor Signs Protein Cervic Dilation Cervic Effacement Cervic Station Type Weight in lbs Pre/Post Dialysis Refused 237.972483167787 BP Diastolic BP Location Tested BP Systolic BP Type 112 L arm 173 sitting 110 R arm 152 sitting Fetus Heart Rate Present A 144 Fetus Movement A No Comments Has excellent blood pressure s at home, at least 130s over 90s. Has severe range blood pressures here today. She brought her cuff. The cuff today corresponded very closely with the blood pressures we took care. We seemed to validate the accuracy of her cuff that she is using at home. Her blood pressures at home are reasonable Flowsheet Date 04/28/2024 Guillaume Score Blood Edema Fundus Height Fundus Units Glucose Ketones Leukocytes Nitrite Labor Signs Protein Cervic Dilation Cervic Effacement Cervic Station Type Weight in lbs Pre/Post Dialysis Refused [id number] BP Diastolic BP Location Tested BP Systolic BP Type 108 168 Fetus Heart Rate Present Fetus Movement Comments Patient is here on the nurse schedule for blood pressure check. Blood Pressure was 168/[address] Bray since Dr Trujillo was in surgery and she advised to have her complete PIH labs with urine for protein and creatin ratio and to talk with Dr Trujillo when got back to office., Spoke with Dr Trujillo and he would like her to start labetalol 200mg and to take twice a day and to come back tomorrow on the nurse schedule for another blood pressure check and to do referral to [facility]. Flowsheet Date 04/29/2024 Guillaume Score Blood Edema Fundus Height Fundus Units Glucose Ketones Leukocytes Nitrite Labor Signs Protein Cervic Dilation Cervic Effacement Cervic Station Type Weight in lbs Pre/Post Dialysis Refused BP Diastolic BP Location Tested BP Systolic BP Type Fetus Heart Rate Present Fetus Movement Comments Flowsheet Date 05/05/2024 Guillaume Score Blood Edema Fundus Height Fundus Units Glucose Ketones Leukocytes Nitrite Labor Signs Protein Cervic Dilation Cervic Effacement Cervic Station Type Weight in lbs Pre/Post Dialysis Refused BP Diastolic BP Location Tested BP Systolic BP Type Fetus Heart Rate Present Fetus Movement Comments Flowsheet Date 05/05/2024 Guillaume Score Blood Edema Fundus Height Fundus Units Glucose Ketones Leukocytes Nitrite Labor Signs Protein Cervic Dilation Cervic Effacement Cervic Station Type Weight in lbs Pre/Post Dialysis Refused 236.152953818862 BP Diastolic BP Location Tested BP Systolic BP Type 110 L arm 165 sitting Fetus Heart Rate Present A 161 Fetus Movement A Yes Comments no complaints, no problems, routine care, no contractions, no vaginal bleeding, no loss of fluid, no cramping she has documented blood pressures at home. They are reasonably good. The blood pressures are attached documentation. Flowsheet Date 05/19/2024 Guillaume Score Blood Edema Fundus Height Fundus Units Glucose Ketones Leukocytes Nitrite Labor Signs Protein Cervic Dilation Cervic Effacement Cervic Station Type Weight in lbs Pre/Post Dialysis Refused 238.384417221269 BP Diastolic BP Location Tested BP Systolic BP Type 99 L arm 167 sitting Fetus Heart Rate Present A 162 Fetus Movement A Yes Comments reviewed blood pressure is f rom her home monitoring. They are excellent. She continues to have severe range pressures when she is measured here. patient to see MFM. Patient to continue Flowsheet Date 06/03/2024 Guillaume Score Blood Edema Fundus Height Fundus Units Glucose Ketones Leukocytes Nitrite Labor Signs Protein Cervic Dilation Cervic Effacement Cervic Station Type Weight in lbs Pre/Post Dialysis Refused [id number] BP Diastolic BP Location Tested BP Systolic BP Type 93 L arm 144 sitting Fetus Heart Rate Present A 144 Fetus Movement A Yes Comments no complaints, no problems, routine care, no contractions, no vaginal bleeding, no loss of fluid, no crampingpree labs and gowth US Menstrual History Last Menstrual Date Menses Monthly On Bcp Conception Prior Menses Frequency Hcg Plus Date Menarche Onset Age 0712/18/2023 Delivery Information Delivery Date Delivery Type Labor Anesthesia Weeks Gestation Incision Type Labor Labor Length Hrs Delivered By Post Complications Tubal Sterilization Discharge Date Comments Discharge Information Feeding Method Contraceptive Method Maternal HG B and HCT Levels
--- OUTSIDE RECORDS SUMMARY | 2024-07-01 16:23 | XMS_ITS | Clinical Summary ---
Author Organization [facility] Address [address] [place] [address] Care Team Providers Care Baked Goods Stock Clerk Name Role Phone Unavailable Primary Care Provider Unavailabl e Source Comments [facility],non-owned Affiliates and Associated Physician Practices is amultiple site organization consisting of ambulatory clinics and hospital sitesin [place], [place], [place] and [place]. This disclosure is being madepursuant to the Care Everywhere program and may not contain all information available regarding this patient. Last updated 18.[facility] Allergies Active Allergy Reactions Criticality Noted Date [...] on last me nstrual period of 12/18/2023 Encounters Date Type Department Care Team Description 06/27/2024 1:00 PM CARE NURSE RN - 06/27/2024 11:59 PM CARE NURSE RN Hospital Encounter [facility] [address] [place] [phone] Jorden West MD DOUGH RAISER Discharge Disposition: Home or Self Care 05/30/2024 9:00 AM CARE NURSE RN - 05/30/2024 11:59 PM CARE NURSE RN Hospital Encounter [facility] [address] [place] [id number] Philly Bradford MD Discharge Disposition: Home or Self Care 05/30/2024 8:15 AM CARE NURSE RN - 05/30/2024 8:59 AM CARE NURSE RN Hospital Encounter [facility] [address] [place] [phone] Philly Bradford MD Discharge Disposition: Home or Self Care 05/30/2024 Travel 05/06/2024 Telephone [facility] [address] [place] [phone] Nereida Pérez Appointment (LM for pt to C/S appt) from Last 3 Months Family History Medical History Relation Name Comments Diabetes Paternal Grandfather Relation Name Status Comments Paternal Grandfather Social History Tobacco Use Types Packs/Day Years [...] Comments Blood Pressure 129/77 05/30/2024 9:16 AM CARE NURSE RN Pulse 95 05/30/2024 9:16 AM CARE NURSE RN Temperature 37 ??C (98.6 ??F) 06/10/2020 4:54 PM CARE NURSE RN Respiratory Rate 18 06/10/2020 7:10 PM CARE NURSE RN Oxygen Saturation 100% 06/10/2020 7:10 PM CARE NURSE RN Inhaled Oxygen Concentration - - Weight 110.5 kg (243 lb 9.6 oz) 05/30/2024 9:16 AM CARE NURSE RN Height 170.2 cm (5' 7 ) 05/30/2024 9:16 AM CARE NURSE RN Body Mass Index 38.15 05/30/2024 9:16 AM CARE NURSE RN Plan of Treatment Upcoming Encounters Date Type Department Care Team (Late st Contact Info) Description 07/25/2024 1:00 PM CARE NURSE RN Appointment [facility] [address] [place] [phone] Health Maintenance Due Date Last Done Comments HIV SCREENING 2015 HPV VACCINE (1 - 3-dose series) 2015 CHLAMYDIA/GONORRHEA SCREENING 2016 MENINGOCOCCAL (Group B) VACCINE (1 of 2 - Standard) 2016 HEPATITIS C SCREENING 07/16/2018 DTAP/TDAP/TD VACCINES (1 - Tdap) 2019 HEPATITIS B VACCINE (1 of 3 - 19+ 3-dose series) 2019 COVID-19 VACCINE (3 - 2023-2 5 season) 2024 07/19/2021, 06/09/2021 INFLUENZA VACCINE (#1) 2024 0, 05/10/2017 DEPRESSION SCREENING 06/04/2024 OB-ONE HOUR GLUCOSE 06/17/2024 OB-TDAP CURRENT 06/24/2024 PAP SMEAR 03/10/2027 03/10/2024, 03/10/2024 ZOSTER VACCINE (1 of 2) 2050 HIB VACCINE Aged Out No longer eligi ble based on patient's age to complete this topic MENINGOCOCCAL VACCINE Aged Out No domenica sanju eligible based on patient's age to complete this topic PNEUMOCOCCAL VACCINE Aged Out No long er eligible based on patient's age to complete this topic Respiratory Syncytial Virus (RSV) Vaccine Pt: or over 60 yrs (No Doses Required) Completed Procedures Procedure Name Priority Date/Time Associated Diagnosis Comments SONOGRAM - COMPLETE Routine 06/27/2024 1:04 PM CARE NURSE RN BMI 38.0-38.9,adult Chronic hypertension affecting (HCC) 26 weeks gestation of (HCC) Obesity affecting in second trimester, unspecified obesity type (HCC) Hypertension affecting in second trimester (HCC) SONOGRAM - COMPLETE Routine 05/30/2024 8:20 AM CARE NURSE RN Chronic hypertension affecting (HCC) Second (HCC) 23 weeks gestation of (HCC) from Last 3 Months Results * SONOGRAM - COMPLETE (06/27/2024 1:04 PM CARE NURSE RN) Only the most recent of2 resultswithin the [...] lb 8 ??oz EFW by ? Hadlock ([id number]) appropriate Growth Overview Exam date ?[place] ?BPD [...] Heart / Thorax 4-chamber view. 3-vessel view. 5-cuybhk-ibfctbz view. Abdomen ?Cord insertion. Stomach. Kidneys. Bladder. [...] sooner as indicated) Coding ====== Procedures ? 88893: [place] Preg Uterus Follow Up [facility] [employer] PACS Anatomical Region Laterality Modality Other 06/27/2024 1:04 PM CARE NURSE RN Jorden West MD [facility] ORDERABLES from Last 3 Months DEV HALL Personal/Famil y Father 1974 [address] [facility] Ashley Hall Personal/Famil y Self 2000 Dev Hall Personal/Famil y Father 1974 DENISSE HALL Personal/Famil y Grandmother 1949
[2024-07-01 16:28] VITALS: BMI 40.4
[2024-07-01 16:46] VITALS: BP 135/89; PULSE 101
[2024-07-01 16:50] LABS: Basophils Percent Auto 0.2 % (0.2-1.2); Eosinophils Percent Auto 0.4 % (0-4.4); Hematocrit 34.9 % (37.0-47.0); Hemoglobin 11.6 g/dL (12.0-15.0); Immature Granulocyte Absolute 0.03 K/mm3 (0.00-0.031); Immature Granulocyte Percent A 0.3 % (0-0.5); Lymphocytes Absolute Auto 1.88 K/mm3 (0.9-3.2); Lymphocytes Percent Auto 20.8 % (18.3-44.2); Mean Corpuscular HGB Conc 33.2 g/dl (32-36); Mean Corpuscular Hemoglobin 31.1 pg (26-34); Mean Corpuscular Volume 93.6 fl (80-100); Mean Platelet Volume 10.4 fl (7.4-10.4); Monocytes Absolute Auto 0.5 K/mm3 (0.1-0.6); Neutrophils Absolute Auto 6.6 K/mm3 (1.3-6.7); Neutrophils Percent Auto 73.3 % (45.5-73.1); Platelet Count Result 276 k/mm3 (150-375); Red Blood Count 3.73 M/mm3 (4.2-5.4); Red Cell Distribution Width 13.2 % (11.5-14.5)
[2024-07-01 16:54] LABS: Alanine Aminotransferase 18 U/L (6-35); Albumin Level 3.7 g/dL (3.5-5.1); Alkaline Phosphatase 101 U/L (38-126); Anion Gap 9 mmol/L (4-12); Aspartate Amino Transferase 18 U/L (14-36); Bilirubin,Total 0.3 mg/dL (0.2-1.3); Blood Urea Nitrogen 4 mg/dL (7-17); Calcium 9.3 mg/dL (8.4-10.2); Carbon Dioxide 21 mmol/L (22-30); Chloride 105 mmol/L (98-107); Estimated CRCL calculation 201 ml/min; Estimated Glomerular Filt Rate > 60; Glucose 86 mg/dL (65-110); Potassium 3.7 mmol/L (3.4-5.0); Sodium 135 mmol/L (137-145); Uric Acid 4.7 mg/dL (2.5-7.5)
[2024-07-01 16:55] LABS: Creatinine Urine 23.3 mg/dL; Total Protein Urine Random 14 mg/dL
[2024-07-01 17:01] VITALS: BP 133/83; PULSE 97
[2024-07-01 17:05] LABS: Add Urine Microscopic? YES; Appearance Urine Clear (Clear); Bacteria Urine Rare /hpf; Bilirubin Urine Negative (Negative); Blood Urine Negative (Negative); Color Urine Yellow (Yellow); Glucose Urine UA Negative (Negative); Ketones Urine Negative (Negative); Leukocyte Esterase Ur 1+ LEU/UL (Negative); Need Manual Microscopic Reviewed; Nitrate Urine Negative (Negative); Non Pathogenic Casts 0-2; Protein Urine Negative (Negative); RBC Urine 0-2 /hpf (0-2); Specific Grav Ur 1.004 (1.001-1.035); Squamous Epithelial Cell Urine None Seen /hpf (Few); Urobilinogen Urine 0.2 mg/dL (<2.0); WBC Urine 0-5 /hpf (0-3); pH Urine 6.5 (5.0-9.0)
[2024-07-01 17:16] VITALS: BP 128/88; PULSE 95
[2024-07-01 17:31] VITALS: BP 125/77; PULSE 94
--- NOTE | 2024-07-01 17:40 | PC.NURSE ---
Called Dr. Trujillo with lab results and BPs. Orders received to D/C home and follow up in office tomorrow.
== END 2024-07-01 17:48 | disposition home or self-care (01) ==
LOC: ANHOBOP 16:20 → ANHLDR 16:22
PROVIDERS: PCP Family Medicine; Visit Provider Obstetrics & Gynecology
DX: O13.9 Gestational [pregnancy-induced] hypertension without significant proteinuria, unspecified trimester (principal); Z3A.00 Weeks of gestation of pregnancy not specified
CPT/HCPCS: 36415; 59025; 80053; 81001; 82570; 84156; 84550; 85025; 87086; 99199

== ENCOUNTER 2024-07-02 16:23 | Outpatient (CLI) | payer BC, SELFPAY ==
[2024-07-02] VITALS (8 sets, daily range): BP systolic 115–150; BP diastolic 71–96; PULSE 85–99; BMI 40.4
--- OUTSIDE RECORDS SUMMARY | 2024-07-02 16:51 | XMS_ITS | Referral Summary ---
Author Organization [facility] Address [address] [place] [address] Care Team Providers Care Shoe Treer Name Role Phone Unavailable Primary Care Provider Unavailabl e Source Comments [facility],non-owned Affiliates and Associated Physician Practices is amultiple site organization consisting of ambulatory clinics and hospital sitesin [place], [place], [place] and [place]. This disclosure is being madepursuant to the Care Everywhere program and may not contain all information available regarding this patient. Last updated 18.[facility] Encounters Date Type Department Care Team Description 06/27/2024 1:00 PM FIELD COIL WINDER - 06/27/2024 11:59 PM FIELD COIL WINDER Hospital Encounter [facility] [address] [place] [phone] Jorden West MD [employer]ORER Discharge Disposition: Home or Self Care 05/30/2024 Travel 05/30/2024 9:00 AM FIELD COIL WINDER - 05/30/2024 11:59 PM FIELD COIL WINDER Hospital Encounter [facility] [address] [place] [phone] Philly Bradford MD Discharge Disposition: Home or Self Care 05/30/2024 8:15 AM FIELD COIL WINDER - 05/30/2024 8:59 AM FIELD COIL WINDER Hospital Encounter [facility] [address] [place] [address] Philly Bradford MD Discharge Disposition: Home or Self Care 05/06/2024 Telephone [facility] [address] [place] [address] Nereida Pérez Appointment (LM for pt to [...] Comments Blood Pressure 129/77 05/30/2024 9:16 AM FIELD COIL WINDER Pulse 95 05/30/2024 9:16 AM FIELD COIL WINDER Temperature 37 ??C (98.6 ??F) 06/10/2020 4:54 PM FIELD COIL WINDER Respiratory Rate 18 06/10/2020 7:10 PM FIELD COIL WINDER Oxygen Saturation 100% 06/10/2020 7:10 PM FIELD COIL WINDER Inhaled Oxygen Concentration - - Weight 110.5 kg (243 lb 9.6 oz) 05/30/2024 9:16 AM FIELD COIL WINDER Height 170.2 cm (5' 7 ) 05/30/2024 9:16 AM FIELD COIL WINDER Body Mass Index 38.15 05/30/2024 9:16 AM FIELD COIL WINDER Plan of Treatment Upcoming Encounters Date Type Department Care Team (Late st Contact Info) Description 07/25/2024 1:00 PM FIELD COIL WINDER Appointment [facility] & [facility] [address] [place], [place] [id number] Procedures Procedure Name Priority Date/Time Associated Diagnosis Comments SONOGRAM - COMPLETE Routine 06/27/2024 1:04 PM FIELD COIL WINDER BMI 38.0-38.9,adult Chronic hypertension affecting (HCC) 26 weeks gestation of (HCC) Obesity affecting in second trimester, unspecified obesity type (HCC) Hypertension affecting in second trimester (HCC) SONOGRAM - COMPLETE Routine 05/30/2024 8:20 AM FIELD COIL WINDER Chronic hypertension affecting (HCC) Second (HCC) 23 weeks gestation of (HCC) from Last 3 Months Results * SONOGRAM - COMPLETE (06/27/2024 1:04 PM FIELD COIL WINDER) Only the most recent of2 resultswithin the [...] lb 8 ??oz EFW by ? Hadlock ([id number]) appropriate Growth Overview Exam date ?[place] ?BPD [...] Heart / Thorax 4-chamber view. 3-vessel view. 9-kqdvuf-cckzvpm view. Abdomen ?Cord insertion. Stomach. Kidneys. Bladder. [...] sooner as indicated) Coding ====== Procedures ? [id number]: US Preg Uterus Follow Up [facility] [place] PACS Anatomical Region Laterality Modality Other 06/27/2024 1:04 PM FIELD COIL WINDER Jorden West MD [facility] ORDERABLES from Last 3 Months DEV HALL Personal/Famil y Father 1974 [address] [facility] [facility] Ashley Hall Personal/Famil y Self 2000 Dev Hall Personal/Famil y Father 1974 TIFFANY HALL Personal/Famil y Grandmother 1949
--- OUTSIDE RECORDS SUMMARY | 2024-07-02 16:51 | XMS_ITS | Patient Health Summary ---
Author Organization [facility] Address [address] [place] [address] Care Team Providers Care House Furnishings Supervisor Name Role Phone Unavailable Primary Care Provider Unavailabl e Note from [facility],non-owned Affiliates and Associated Physician Practices is amultiple site organization consisting of ambulatory clinics and hospital sitesin [place], [place], [place] and [place]. This disclosure is being madepursuant to the Care Everywhere program and may not contain all information available regarding this patient. Last updated 18.[facility] Allergies * Vancomycin(Rash) -High Criticality Medications * [...] Comments Blood Pressure 129/77 05/30/2024 9:16 AM [facility] Pulse 95 05/30/2024 9:16 AM [facility] Temperature 37 ??C (98.6 ??F) 06/10/2020 4:54 PM [facility] Respiratory Rate 18 06/10/2020 7:10 PM [facility] Oxygen Saturation 100% 06/10/2020 7:10 PM [facility] Inhaled Oxygen Concentration - - Weight 110.5 kg (243 lb 9.6 oz) 05/30/2024 9:16 AM [facility] Height 170.2 cm (5' 7 ) 05/30/2024 9:16 AM [facility] Body Mass Index 38.15 05/30/2024 9:16 AM [facility] Procedures * SONOGRAM - COMPLETE(Performed 06/27/2024) Performed [...] for Stem cell donor * DONOR PANEL [id number](Performed 05/14/2020) Performed for Stem cell donor * [...] * SONOGRAM - COMPLETE (06/27/2024 1:04 PM [facility]) Only the most recent of2 resultswithin the [...] lb 8 ??oz EFW by ? Hadlock ([id number]) appropriate Growth Overview Exam date ?GA ?BPD [...] Heart / Thorax 4-chamber view. 3-vessel view. 2-ojwplt-ztppefx view. Abdomen ?Cord insertion. Stomach. Kidneys. Bladder. [...] sooner as indicated) Coding ====== Procedures ? 70610: US Preg [facility]terus [facility] Anatomical Region Laterality Modality Other 06/27/2024 1:04 PM [facility] Jorden West MD [facility] ORDERABLES * CARDIAC EKG ORDER (06/17/2020 8:57 PM [facility]) Narrative 06/17/2020 8:57 PM [facility] Ordered by an unspecified provider. Scanned Document CARDIAC SERVICES ORD ERABLES * SPECIAL TRAY REQUEST (06/10/2020 5:21 PM [facility]) Narrative Zeferino Dunlap MD - 06/10/2020 5:21 PM [facility] Zeferino Dunlap MD ? 06/14/2020 ??3:47 PM [...] ??650 mg Oral q4h PRN Meeta Henriquez P[employer]AC[employer]Y ? calcium gluconate 5 g in 300 mL NS ??5 g Intravenous PRN FlorenceMeeta, PIG BREEDER-RESPIRATORY CARE FACULTY 100 mL/hr at 06/10/20 1040 5 g at 06/10/20 1040 Physical Exam Constitutional: VS: T=99, P=105, VB=747/93, Os sat=99% RA General Appearance: No acute [...] cell donor V59.02 Client Specimen ID # ?[id number] Number of Markers 2 ?? Flow Cytometry Results ? Differential Result % Comment Total Viability ??93.2 ?? Lymph/[place]/Gran Region Surface Marker Results % Absolute Count (cell/uL) CD34 0.11 42.648 CD45 91.93 35,642.364 Flow Cytometry Interpretation ?Testing is technical only and does not require an interpretation of results. Disclaimer ?Test performed at [facility], [address] [place] [address], [id number]. This test was developed and its performance [...] QTC Calculation (Bezet) 470 ms Calculated P [place] 61 degrees Calculated R [place] 73 degrees Calculated T [place] 15 degrees Interpretation EKG ?SINUS TACHYCARDIA OTHERWISE [...] Plt levels were acceptable. Post collection Hct=32.9, Uux=465 . The donor experienced slowly increasing tachycardia during the collection. EKG was obtained pointing to sinus tachycardia. HR stabilized ~115. The goal for this procedure ??is 6 x 10e6 CD34 cells/kg. Processed volume during procedure was 20,231 mL. Yield of collection was 5.20n69n4 CD34/kg. Goal was reached per Dr Mendoza. Zeferino Dunlap MD, PhD Zeferino Dunlap MD NURSING - DIET * DAILY WEIGHTS (06/10/2020 5:21 PM [facility]) Narrative Zeferino Dunlap MD - 06/10/2020 5:21 [...] ??650 mg Oral q4h PRN Florence, Meeta, [employer]AC[employer]Y ? calcium gluconate 5 g in 300 mL NS ??5 g Intravenous PRN Florence, Meeta, PIG BREEDER-[employer]PIRATORY CARE FACULTY 100 mL/hr at 06/10/20 1040 5 g at 06/10/20 1040 Physical Exam Constitutional: VS: T=99, P=105, IQ=070/93, Os sat=99% RA General Appearance: No acute [...] cell donor V59.02 Client Specimen ID # ?[id number] Number of Markers 2 ?? Flow Cytometry Results ? Differential Result % Comment Total Viability ??93.2 ?? Lymph/[place]/Gran Region Surface Marker Results % Absolute Count (cell/uL) CD34 0.11 42.648 CD45 91.93 35,642.364 Flow Cytometry Interpretation ?Testing is technical only and does not require an interpretation of results. Disclaimer ?Test performed at [facility], [address], [place], [place], [address]. This test was developed and its performance [...] QTC Calculation (Bezet) 470 ms Calculated P [place] 61 degrees Calculated R [place] 73 degrees Calculated T [place] 15 degrees Interpretation EKG ?SINUS TACHYCARDIA OTHERWISE [...] Plt levels were acceptable. Post collection Hct=32.9, Rpc=904 . The donor experienced slowly increasing tachycardia during the collection. EKG was obtained pointing to sinus tachycardia. HR stabilized ~115. The goal for this procedure ??is 6 x 10e6 CD34 cells/kg. Processed volume during procedure was 20,231 mL. Yield of collection was 5.60a91r4 CD34/kg. Goal was reached per Dr Mendoza. Zeferino Dunlap MD, PhD Meeta ARIZMENDI NURSING - VITAL S IGNS AND ASSESSMENT * PUNCTURE SITE (06/10/2020 5:21 PM [facility]) Narrative Zeferino Dunlap MD - 06/10/2020 5:21 PM [facility] Zeferino Dunlap MD ? 06/14/2020 ??3:47 PM [...] NS ??5 g Intravenous PRN Meeta Henriquez, JOSE-RESPIRATORY CARE FACULTY 100 mL/hr at 06/10/20 1040 5 g at 06/10/20 1040 Physical Exam Constitutional: VS: T=99, P=105, MV=132/93, Os sat=99% RA General Appearance: No acute [...] cell donor V59.02 Client Specimen ID # ?[id number] Number of Markers 2 ?? Flow Cytometry Results ? Differential Result % Comment Total Viability ??93.2 ?? Lymph/[place]/Gran Region Surface Marker Results % Absolute Count (cell/uL) CD34 0.11 42.648 CD45 91.93 35,642.364 Flow Cytometry Interpretation ?Testing is technical only and does not require an interpretation of results. Disclaimer ?Test performed at [facility], [address] [place] [address], [id number]. This test was developed and its performance [...] QTC Calculation (Bezet) 470 ms Calculated P [place] 61 degrees Calculated R [place] 73 degrees Calculated T [place] 15 degrees Interpretation EKG ?SINUS TACHYCARDIA OTHERWISE [...] Plt levels were acceptable. Post collection Hct=32.9, Apt=022 . The donor experienced slowly increasing tachycardia during the collection. EKG was obtained pointing to sinus tachycardia. HR stabilized ~115. The goal for this procedure ??is 6 x 10e6 CD34 cells/kg. Processed volume during procedure was 20,231 mL. Yield of collection was 5.57a10t0 CD34/kg. Goal was reached per Dr Mendoza. Zeferino Dunlap MD, PhD Quan Paredes MD NURSING - WOUND SAMY TMENT * DIET NPO Except: NO EXCEPTIONS (06/10/2020 5:21 PM [facility]) Narrative [facility] - 06/10/2020 5:21 PM [facility] Zeferino Dunlap MD ? 06/14/2020 ??3:47 PM [...] ??650 mg Oral q4h PRN Florence, Meeta, [employer] FAC[employer]Y ? calcium gluconate 5 g in 300 mL NS ??5 g Intravenous PRN Florence, Meeta, PIG BREEDER-[employer]PIRATORY CARE FACULTY 100 mL/hr at 06/10/20 1040 5 g at 06/10/20 1040 Physical Exam Constitutional: VS: T=99, P=105, AD=736/93, Os sat=99% RA General Appearance: No acute [...] cell donor V59.02 Client Specimen ID # ?[id number] Number of Markers 2 ?? Flow Cytometry Results ? Differential Result % Comment Total Viability ??93.2 ?? Lymph/[place]/Gran Region Surface Marker Results % Absolute Count (cell/uL) CD34 0.11 42.648 CD45 91.93 35,642.364 Flow Cytometry Interpretation ?Testing is technical only and does not require an interpretation of results. Disclaimer ?Test performed at [facility], [address] [place] [address], [id number]. This test was developed and its performance [...] QTC Calculation (Bezet) 470 ms Calculated P [place] 61 degrees Calculated R [place] 73 degrees Calculated T [place] 15 degrees Interpretation EKG ?SINUS TACHYCARDIA OTHERWISE [...] Plt levels were acceptable. Post collection Hct=32.9, Zkf=711 . The donor experienced slowly increasing tachycardia during the collection. EKG was obtained pointing to sinus tachycardia. HR stabilized ~115. The goal for this procedure ??is 6 x 10e6 CD34 cells/kg. Processed volume during procedure was 20,231 mL. Yield of collection was 5.07i62s9 CD34/kg. Goal was reached per Dr Mendoza. Zeferino Dunlap MD, PhD Quan Paredes MD DIET ORDERABLES [facility] * DIET REGULAR (06/10/2020 5:21 PM [facility]) Narrative [facility] - 06/10/2020 5:21 PM [facility] Zeferino Dunlap MD ? 06/14/2020 ??3:47 PM Cellular Therapy Collections Progress Note Ashley Hlal 06/10/2020 Diagnosis: No diagnosis found. Protocol/Regimen: HPC [...] ??650 mg Oral q4h PRN Florence, Meeta, [employer]AC[employer]Y ? calcium gluconate 5 g in 300 mL NS ??5 g Intravenous PRN Florence, Meeta, P[employer]ATORY CARE FACULTY 100 mL/hr at 06/10/20 1040 5 g at 06/10/20 1040 Physical Exam Constitutional: VS: T=99, P=105, FF=815/93, Os sat=99% RA General Appearance: No acute [...] cell donor V59.02 Client Specimen ID # ?[id number] Number of Markers 2 ?? Flow Cytometry Results ? Differential Result % Comment Total Viability ??93.2 ?? Lymph/[place]/Gran Region Surface Marker Results % Absolute Count (cell/uL) CD34 0.11 42.648 CD45 91.93 35,642.364 Flow Cytometry Interpretation ?Testing is technical only and does not require an interpretation of results. Disclaimer ?Test performed at [facility], [address] [place] [address], [facility]. This test was developed and its performance [...] QTC Calculation (Bezet) 470 ms Calculated P [place] 61 degrees Calculated R [place] 73 degrees Calculated T [place] 15 degrees Interpretation EKG ?SINUS TACHYCARDIA OTHERWISE [...] Plt levels were acceptable. Post collection Hct=32.9, Tgi=184 . The donor experienced slowly increasing tachycardia during the collection. EKG was obtained pointing to sinus tachycardia. HR stabilized ~115. The goal for this procedure ??is 6 x 10e6 CD34 cells/kg. Processed volume during procedure was 20,231 mL. Yield of collection was 5.31c17u6 CD34/kg. Goal was reached per Dr Mendoza. Zeferino Dunlap MD, PhD Meeta Henriquez [employer]-RESPIRATORY CARE FAC[employer]Y [facility] * (ABNORMAL) CALCIUM IONIZED WHOLE BLOOD (06/10/2020 5:01 PM [facility]) Only the most recent of2 resultswithin the time period is included. Ionized Calcium Whole Blood 1.16 mmol/L 06/10/2020 5:12 PM [facility] Adjusted Ionized Calcium 1.20 1.19 - 1.34 mmol/L 06/10/2020 5:12 PM [facility] pH Whole Blood 7.48(H) 7.35 - 7.45 06/10/2020 5:12 PM [facility] Blood WHOLE BLOOD SPECIMEN / Unknown Venipuncture / Unknown 06/10/2020 5:01 PM [facility] 06/10/2020 5:11 PM [facility] Gisela [facility] - 06/10/2020 5:21 PM [facility] Zeferino Dunlap MD ? 06/14/2020 ??3:47 PM [...] mg ??650 mg Oral q4h PRN FlorenceMeeta, P[employer]PIRATORY CARE FACULTY ? calcium gluconate 5 g in 300 mL NS ??5 g Intravenous PRN FlorenceMeeta, PIG BREEDER-RESPIRATORY CARE FACULTY 100 mL/hr at 06/10/20 1040 5 g at 06/10/20 1040 Physical Exam Constitutional: VS: T=99, P=105, VY=471/93, Os sat=99% RA General Appearance: No acute [...] cell donor V59.02 Client Specimen ID # ?[id number] Number of Markers 2 ?? Flow Cytometry Results ? Differential Result % Comment Total Viability ??93.2 ?? Lymph/[place]/Gran Region Surface Marker Results % Absolute Count (cell/uL) CD34 0.11 42.648 CD45 91.93 35,642.364 Flow Cytometry Interpretation ?Testing is technical only and does not require an interpretation of results. Disclaimer ?Test performed at [facility], [address] [place] [address], [id number]. This test was developed and its performance [...] QTC Calculation (Bezet) 470 ms Calculated P [place] 61 degrees Calculated R [place] 73 degrees Calculated T [place] 15 degrees Interpretation EKG ?SINUS TACHYCARDIA OTHERWISE [...] Plt levels were acceptable. Post collection Hct=32.9, Ivf=743 . The donor experienced slowly increasing tachycardia during the collection. EKG was obtained pointing to sinus tachycardia. HR stabilized ~115. The goal for this procedure ??is 6 x 10e6 CD34 cells/kg. Processed volume during procedure was 20,231 mL. Yield of collection was 5.59t63o7 CD34/kg. Goal was reached per Dr Mendoza. Zeferino Dunlap MD, PhD Zeferino Dunlap MD LAB - CHEMISTRY OR DERABLES [facility] [address] [place] [address], [facility] [phone] * (ABNORMAL) DIFFERENTIAL MANUAL (06/10/2020 5:01 PM [facility]) Only the most recent of2 resultswithin the time period is included. WBC (corrected for NRBC) 37.2 10? 3 /uL 06/10/2020 6:10 PM [facility] Total Cell Count 100 06/10/19 21 6:10 PM [facility] Neutrophils Absolute Manual 31.62(H) 1.60 - 7.00 10? 3 /uL 06/10/2020 6:10 PM [facility] Comment:(BANDS+SEGS) x WBC = NEUT # (ANC) Lymphocyte Absolute Manual 2.60 0.80 - 2.90 10? 3 /uL 06/10/2020 6:10 PM [facility] Monocytes Absolute Manual 1.49(H) 0.14 - 0.66 10? 3 /uL 06/10/2020 6:10 PM [facility] Band % Manual 15(H) 0 - 10 % 06/10/2020 6:10 PM [facility] Neutrophil % Manual 70(H) 30 - 60 % 06/10/2020 6:10 PM [facility] Lymphocyte % Manual 7(L) 20 - 45 % 06/10/2020 6:10 PM [facility] Monocytes % Manual 4 2 - 10 % 06/10/2020 6:10 PM [facility] Metamyelocyte % Manual 3(H) 0 % 06/10/2020 6:10 PM [facility] Myelocytes % Manual 1(H) 0 % 06/10/2020 6:10 PM [facility] Platelet Estimate Decreased( A) Adequate 06/10/2020 6:10 PM [facility] RBC Morphology Normal 06/10/2020 6:10 PM [facility] Blood BLOOD SPECIMEN / Unknown Venipuncture / Unknown 06/10/2020 5:01 PM [facility] 06/10/2020 5:16 PM [facility] Meeta Henriquez [employer]AT[employer] FAC[employer]Y LAB - HEMATOLOGY ORDERABLES [address] [address], [facility] [phone] * (ABNORMAL) CBC W AUTO DIFFERENTIAL (06/10/2020 5:01 PM [facility]) Only the most recent of4 resultswithin the time period is included. WBC 37.2(H) 3.5 - 10.5 10? 3 /uL 06/10/2020 5:34 PM [facility] Comment:All CBC parameters h ave been checked. RBC 3.58(L) 3.90 - 5.00 10? 6 /uL 06/10/2020 5:34 PM [facility] Hemoglobin 11.0(L) 12.0 - 15.5 g/dL 06/10/2020 5:34 PM [facility] Hematocrit 32.9(L) 35.0 - 45.0 % 06/10/2020 5:34 PM [facility] MCV 91.9 81.0 - 97.0 fL 06/10/2020 5:34 PM [facility] MCH 30.7 28.0 - 34.0 pg 06/10/2020 5:34 PM [facility] MCHC 33.4 32.0 - 36.0 g/dL 06/10/2020 5:34 PM [facility] Platelet Count 123(L) 150 - 400 10? 3 /uL 06/10/2020 5:34 PM [facility] Comment:Confirmed by repeat analysis. RDW-SD 43.2 36.0 - 50.0 fL 06/10/2020 5:34 PM [facility] RDW-CV 12.9 11.2 - 14.8 % 06/10/2020 5:34 PM [facility] MPV 9.5 9.3 - 12.8 fL 06/10/2020 5:34 PM [facility] nRBC Absolute 0.05(H) 0 10? 3 /uL 06/10/2020 5:34 PM [facility] nRBC Auto 0.1(H) 0 /100 WBC 06/10/2020 5:34 PM [facility] Blood BLOOD SPECIMEN / Unknown Venipuncture / Unknown 06/10/2020 5:01 PM [facility] 06/10/2020 5:16 PM [facility] - 06/10/2020 5:21 PM [facility] Zeferino Dunlap MD ? 06/14/2020 ??3:47 PM [...] mg ??650 mg Oral q4h PRN FlorenceMeeta, [employer] FACULTY ? calcium gluconate 5 g in 300 mL NS ??5 g Intravenous PRN FlorenceMeeta, PIG BREEDER-RESPIRATORY CARE FACULTY 100 mL/hr at 06/10/20 1040 5 g at 06/10/20 1040 Physical Exam Constitutional: VS: T=99, P=105, AK=008/93, Os sat=99% RA General Appearance: No acute [...] cell donor V59.02 Client Specimen ID # ?[id number] Number of Markers 2 ?? Flow Cytometry Results ? Differential Result % Comment Total Viability ??93.2 ?? Lymph/[place]/Gran Region Surface Marker Results % Absolute Count (cell/uL) CD34 0.11 42.648 CD45 91.93 35,642.364 Flow Cytometry Interpretation ?Testing is technical only and does not require an interpretation of results. Disclaimer ?Test performed at [facility], [address] [place] [address], [id number]. This test was developed and its performance [...] QTC Calculation (Bezet) 470 ms Calculated P [place] 61 degrees Calculated R [place] 73 degrees Calculated T [place] 15 degrees Interpretation EKG ?SINUS TACHYCARDIA OTHERWISE [...] Plt levels were acceptable. Post collection Hct=32.9, Qmx=422 . The donor experienced slowly increasing tachycardia during the collection. EKG was obtained pointing to sinus tachycardia. HR stabilized ~115. The goal for this procedure ??is 6 x 10e6 CD34 cells/kg. Processed volume during procedure was 20,231 mL. Yield of collection was 5.14t60a5 CD34/kg. Goal was reached per Dr Mendoza. Zeferino Dunlap MD, PhD Meeta Henriquez P[employer]AC[employer] LAB - HEMATOLOGY ORDERABLES [facility] [address] [place] [address], [facility] [phone] * EKG 12-LEAD (06/10/2020 2:14 PM [facility]) Ventricular Rate 122 BPM [facility] MUSE Atrial Rate 122 BPM [facility] MUSE P-R Interval 138 ms [facility] MUSE QRS Duration ms 84 ms [facility] MUSE Q-T Interval ms 330 ms [facility] MUSE QTC Calculation (Bezet) 470 ms SL MUSE Calculated P [place] 61 degrees SL MUSE Calculated R [place] 73 degrees SL MUSE Calculated T [place] 15 degrees [facility] MUSE Interpretation EKG SINUS TACHYCARDIA OTHERWISE NORMAL ECG NO PREVIOUS ECGS AVAILABLE Confirmed by fellow Carol Hurst ([id number]) on 06/11/2020 2:17:16 PM Confirmed by Kenny Parkinson ([id number]) on 06/16/2020 12:22:17 PM [facility] MUSE 06/10/2020 2:14 PM [facility] 06/16/2020 12:22 PM [facility] Meeta Henriquez [employer]ATORY [employer] FAC[employer]Y ECG ORDERABLES Performing Organization Address [facility]/ZIP Co de Phone Number [facility] * FLOW CYTOMETRY CD34 COUNT BLOOD (06/10/2020 10:16 AM [facility]) Pathologist [facility] Reason for test Stem cell donor V59.02 06/10/2020 12:05 PM [facility] Client Specimen ID # [id number] 06/10/2020 12:05 PM [facility] Number of Markers 2 06/10/2020 12:05 PM [facility] Flow Cytometry Results Differential Result % Comment Total Viability 93.2 Lymph/[place]/Gran Region Surface Marker Results % Absolute Count (cell/uL) CD34 0.11 42.648 CD45 91.93 35,642.364 06/10/2020 12:05 PM [facility] Flow Cytometry Interpretation Testing is technical only and does not require an interpretation of results. 06/10/2020 12:05 PM [facility] Disclaimer Test performed at [facility], [address], [place], [place], [address]. This test was developed and its performance [...] high complexity clinical testing. 06/10/2020 12:05 PM [facility] Embedded Images 12:05 PM [facility] Blood BLOOD SPECIMEN / Unknown Venipuncture / Unknown 06/10/2020 10:16 AM [facility] 06/10/2020 10:33 AM [facility] - 06/10/2020 5:21 PM Zeferino [...] ??650 mg Oral q4h PRN Meeta Henriquez APRN-RESPIRATORY CARE FACULTY ? calcium gluconate 5 g in 300 mL NS ??5 g Intravenous PRN Meeta Henriquez, JOSE-RESPIRATORY CARE FACULTY 100 mL/hr at 06/10/20 1040 5 g at 06/10/20 1040 Physical Exam Constitutional: VS: T=99, P=105, HD=976/93, Os sat=99% RA General Appearance: No acute [...] cell donor V59.02 Client Specimen ID # ?[id number] Number of Markers 2 ?? Flow Cytometry Results ? Differential Result % Comment Total Viability ??93.2 ?? Lymph/[place]/Gran Region Surface Marker Results % Absolute Count (cell/uL) CD34 0.11 42.648 CD45 91.93 35,642.364 Flow Cytometry Interpretation ?Testing is technical only and does not require an interpretation of results. Disclaimer ?Test performed at [facility], [address] [place] [address], [id number]. This test was developed and its performance [...] QTC Calculation (Bezet) 470 ms Calculated P [place] 61 degrees Calculated R [place] 73 degrees Calculated T [place] 15 degrees Interpretation EKG ?SINUS TACHYCARDIA OTHERWISE [...] Plt levels were acceptable. Post collection Hct=32.9, Jic=873 . The donor experienced slowly increasing tachycardia during the collection. EKG was obtained pointing to sinus tachycardia. HR stabilized ~115. The goal for this procedure ??is 6 x 10e6 CD34 cells/kg. Processed volume during procedure was 20,231 mL. Yield of collection was 5.81k81x7 CD34/kg. Goal was reached per Dr Mendoza. Zeferino Dunlap MD, PhD Meeta Henriquez P[employer]ATORY CARE FAC[employer]Y LAB - PATHOLOGY/C YTOLOGY ORDERABLES [facility] LAB [address] [phone] * TYPE AND SCREEN (06/10/2020 10:00 AM [facility]) Only the most recent of3 resultswithin the time period is included. Antibody Screen NEG 11:44 AM [facility] H BLOOD BANK LAB ABO Rh A POS 06/10/2020 11:44 AM [facility] LAB Blood Bank BLOOD SPECIMEN / Unknown Venipuncture / Unknown 06/10/2020 10:00 AM [facility] 06/10/2020 10:45 AM [facility] Gisela [facility] B[facility]OD [facility] LAB - 06/10/2020 [...] ??650 mg Oral q4h PRN Florence, Meeta, P[employer]PIRATORY CARE FACULTY ? calcium gluconate 5 g in 300 mL NS ??5 g Intravenous PRN Florence, Meeta, PIG [employer]EDER-RESPIRATORY CARE FACULTY 100 mL/hr at 06/10/20 1040 5 g at 06/10/20 1040 Physical Exam Constitutional: VS: T=99, P=105, UF=867/93, Os sat=99% RA General Appearance: No acute [...] cell donor V59.02 Client Specimen ID # ?[id number] Number of Markers 2 ?? Flow Cytometry Results ? Differential Result % Comment Total Viability ??93.2 ?? Lymph/[place]/Gran Region Surface Marker Results % Absolute Count (cell/uL) CD34 0.11 42.648 CD45 91.93 35,642.364 Flow Cytometry Interpretation ?Testing is technical only and does not require an interpretation of results. Disclaimer ?Test performed at [facility], [address] [place] [address], [id number]. This test was developed and its performance [...] QTC Calculation (Bezet) 470 ms Calculated P [place] 61 degrees Calculated R [place] 73 degrees Calculated T [place] 15 degrees Interpretation EKG ?SINUS TACHYCARDIA OTHERWISE [...] Plt levels were acceptable. Post collection Hct=32.9, Cpc=682 . The donor experienced slowly increasing tachycardia during the collection. EKG was obtained pointing to sinus tachycardia. HR stabilized ~115. The goal for this procedure ??is 6 x 10e6 CD34 cells/kg. Processed volume during procedure was 20,231 mL. Yield of collection was 5.45r55t7 CD34/kg. Goal was reached per Dr Mendoza. Zeferino Dunlap MD, PhD Meeta Fofanautt PIG [employer]ER-[employer]ATORY [employer]ARE FAC[employer]Y LAB - BLOOD BANK ORDERABLES [facility] [address] [place] [address], [facility] [phone] * IR CENTRAL LINE INSERT NON TUNNEL (06/10/2020 8:28 AM [facility]) Anatomical Region Laterality Modality Chest, Upper Extremity X-Ray Ang iography 06/10/2020 2:01 PM [facility] HAND Impressions 06/10/2020 2:16 PM [facility] Impression: Successful placement of a triple lumen 13.5 Citizen Of [place] x 15 cm nontunneled pheresis catheter through the right internal jugular vein under ultrasound and fluoroscopic guidance. I, Quan Paredes, was present and performed/supervised the entire procedure. This report was electronically signed by QUAN PAREDES ??on 06/10/2020 2:16 PM . Narrative 06/10/2020 2:16 PM [facility] History: 19-year-old female presenting for nontunneled pheresis catheter placement for stem cell donation. Operators: 1.Dr. Paredes, Attending Physician Anesthesia: 1.Local anesthesia - 10 mL of 1% lidocaine 2.Intravenous analgesia - Fentanyl 25 mcg 3.Additional medication - 50 mg Benadryl Procedure: 1.Ultrasound-guided access of the right internal jugular vein. 2.Fluoroscopy-guided placement of a triple lumen 13.5 Citizen [place] x 15 cm nontunneled catheter through the [...] After a series of dilatations, a 13.5 Citizen [place] by 15 cm dialysis catheter was advanced [...] 2.Fluoroscopy-guided placement of a triple lumen 13.5 Citizen [place] x 15 cm nontunneled catheter through the [...] After a series of dilatations, a 13.5 Citizen [place] by 15 cm dialysis catheter was advanced [...] Successful placement of a triple lumen 13.5 Citizen [place] x 15 cm nontunneled pheresis catheter through the right internal jugular vein under ultrasound and fluoroscopic guidance. I, Quan Paredes, was present and performed/supervised the entireprocedure. This report was electronically signed by QUAN PAREDES on 06/10/2020 2:16 PM. Meeta Fofanautt PIG BREEDER-RESPIRATORY CARE FACULTY IR ORDERABLES * PT-INR [facility] (06/10/2020 7:56 AM [facility]) Only the most recent of2 resultswithin the time period is included. PT 13.6 12.1 - 14.8 Seconds 06/10/2020 8:17 AM [facility] INR 1.1 See Comment 06/10/2020 8:17 AM [facility] Comment:The suggested therap eutic range for standard coumadin (warfarin) therapy is an INR of 2.0-3.0. For high-risk patients (Mechanical Mitral Valve Prosthesis, etc.), the suggested prophylactic therapeutic range is an INR of 2.5-3.5. Blood BLOOD SPECIMEN / Unknown Venipuncture / Unknown 06/10/2020 7:56 AM [facility] 06/10/2020 8:09 AM [facility] - 06/10/2020 5:21 PM [facility] Zeferino Dunlap MD ? 06/14/2020 ??3:47 PM [...] ??650 mg Oral q4h PRN Florence, Meeta, PIG BREEDER-RESPIRATORY CARE FACULTY ? calcium gluconate 5 g in 300 mL NS ??5 g Intravenous PRN Florence, Meeta, PIG BREEDER-RESPIRATORY CARE FACULTY 100 mL/hr at 06/10/20 1040 5 g at 06/10/20 1040 Physical Exam Constitutional: VS: T=99, P=105, EM=932/93, Os sat=99% RA General Appearance: No acute [...] cell donor V59.02 Client Specimen ID # ?[id number] Number of Markers 2 ?? Flow Cytometry Results ? Differential Result % Comment Total Viability ??93.2 ?? Lymph/[place]/Gran Region Surface Marker Results % Absolute Count (cell/uL) CD34 0.11 42.648 CD45 91.93 35,642.364 Flow Cytometry Interpretation ?Testing is technical only and does not require an interpretation of results. Disclaimer ?Test performed at [facility], [address] [place] [address], [id number]. This test was developed and its performance [...] QTC Calculation (Bezet) 470 ms Calculated P [place] 61 degrees Calculated R [place] 73 degrees Calculated T [place] 15 degrees Interpretation EKG ?SINUS TACHYCARDIA OTHERWISE [...] Plt levels were acceptable. Post collection Hct=32.9, Snj=209 . The donor experienced slowly increasing tachycardia during the collection. EKG was obtained pointing to sinus tachycardia. HR stabilized ~115. The goal for this procedure ??is 6 x 10e6 CD34 cells/kg. Processed volume during procedure was 20,231 mL. Yield of collection was [id number] CD34/kg. Goal was reached per Dr Mendoza. Zeferino Dunlap MD, PhD Quan Paredes MD LAB - COAGULATION OR DERABLES Performing Organization Address City/State/[facility] Co de Phone Number [facility] [address] [place] [address], [facility] [phone] * HCG URINE QUALITATIVE - POCT (IP) INTERFACED (06/10/2020 7:42 AM [facility]) HCG Qual Urine Negative Negative 06/10/2020 7:49 AM [facility] Urine URINE / Unknown 06/10/2020 7 :42 AM [facility] 06/10/2020 7:49 AM [facility] Meeta ARIZMENDI LAB - POINT OF CA RE ORDERABLES [facility] [address] [place] [address], [facility] [phone] * HCG URINE QUAL POCT NOTIFICATION (06/10/2020 7:40 AM [facility]) Comment Notification Label Only - See Separate Report 06/10/2020 9:00 AM [facility] Urine URINE / Unknown 06/10/2020 7 :40 AM [facility] 06/10/2020 7:40 AM [facility] Narrative [facility] - 06/10/2020 5:21 PM [facility] Zeferino Dunlap MD ? 06/14/2020 ??3:47 PM [...] NS ??5 g Intravenous PRN Meeta Henriquez APRN-RESPIRATORY CARE FACULTY 100 mL/hr at 06/10/20 1040 5 g at 06/10/20 1040 Physical Exam Constitutional: VS: T=99, P=105, ZA=000/93, Os sat=99% RA General Appearance: No acute [...] cell donor V59.02 Client Specimen ID # ?[id number] Number of Markers 2 ?? Flow Cytometry Results ? Differential Result % Comment Total Viability ??93.2 ?? Lymph/[place]/Gran Region Surface Marker Results % Absolute Count (cell/uL) CD34 0.11 42.648 CD45 91.93 35,642.364 Flow Cytometry Interpretation ?Testing is technical only and does not require an interpretation of results. Disclaimer ?Test performed at [facility], [address] [place] [address], [id number]. This test was developed and its performance [...] QTC Calculation (Bezet) 470 ms Calculated P [place] 61 degrees Calculated R [place] 73 degrees Calculated T [place] 15 degrees Interpretation EKG ?SINUS TACHYCARDIA OTHERWISE [...] Plt levels were acceptable. Post collection Hct=32.9, Aih=986 . The donor experienced slowly increasing tachycardia during the collection. EKG was obtained pointing to sinus tachycardia. HR stabilized ~115. The goal for this procedure ??is 6 x 10e6 CD34 cells/kg. Processed volume during procedure was 20,231 mL. Yield of collection was [id number] CD34/kg. Goal was reached per Dr Mendoza. Zeferino Dunlap MD, PhD Meeta Henriquez PIG BREEDER-RESPIRATORY CARE FACULTY LAB - URINALYSIS ORDERABLES Performing Organization Address [facility] Co de Phone Number [address] [address] [phone] * URINALYSIS REFLEX TO MICROSCOPIC NO CULTURE (06/07/2020 12:33 PM [facility]) Color UA Straw Straw, Yellow, Colorless 06/07/2020 1:28 PM [facility] Clarity UA Clear Clear, Slt Cloudy 06/07/2020 1:28 PM [facility] Specific [place] UA 1.008 1.005 - 1.030 06/07/2020 1:28 PM [facility] pH UA 6.0 5.0 - 8.0 pH 06/07/2020 1:28 PM [facility] Protein UA Negative Negative mg/dL 06/07/2020 1:28 PM [facility] Glucose UA Negative Negative mg/dL 06/07/2020 1:28 PM [facility] Ketone UA Negative Negative mg/dL 06/07/2020 1:28 PM [facility] Bilirubin UA Negative Negative mg/dL 06/07/2020 1:28 PM [facility] Blood UA Negative Negative 06/07/2020 1:28 PM [facility] Nitrite UA Negative Negative 06/07/2020 1:28 PM [facility] Leukocyte Esterase Negative Negative 06/07/2020 1:28 PM [facility] Urobilinogen UA Negative Negative mg/dL 06/07/2020 1:28 PM [facility] RBC UA 3-5 None Seen, 0-2, 3-5 /HPF 06/07/2020 1:28 PM [facility] WBC UA 0-5 None Seen, 0-5 /HPF 06/07/2020 1:28 PM [facility] Bacteria UA Trace None, Trace /HPF 06/07/2020 1:28 PM [facility] Squamous Epithelial Cells UA 0-2 None Seen, 0-2 /HPF 06/07/2020 1:28 PM [facility] Mucus UA 1+ None, 1+ /LPF 06/07/2020 1:28 PM [facility] Urine URINE SPECIMEN OBTAINED BY CLEAN CATCH PROCEDURE / Unknown Collection / Unknown 06/07/2020 12:33 PM [facility] 06/07/2020 12:51 PM [facility] - 06/07/2020 1:28 PM [facility] Debbie ARIZMENDI LAB - URINALYSIS O RDERABLES [facility] [address] [place] [address], [facility] [phone] * CULTURE URINE (06/07/2020 12:33 PM [facility]) Only the most recent of2 resultswithin the time period is included. Culture Urine <10,000 CFU/mL urogenital mark JESSEE 06/09/2020 7:21 AM [facility] MICROBIOLOGY Urine URINE SPECIMEN OBTAINED BY CLEAN CATCH PROCEDURE / Unknown Collection / Unknown 06/07/2020 12:33 PM [facility] 06/07/2020 1:09 PM [facility] Debbie Patel APRN-RESPIRATORY CARE FACULTY LAB - MICROBIOLOGY ORDERABLES [facility] MICROBIOLOGY [address] [place] [address], [facility] [phone] * SARS-COV-2 (COVID-19) PRE-SURGICAL/PROCEDURE (06/04/2020 10:50 AM [facility]) Pathologist [facility] COVID-19 PCR Not detected Not detected 06/04/2020 5:03 PM [facility] MICROBIOLOGY Microbiology SPECIMEN FROM NASOPHARYNGEAL STRUCTURE / Unknown Collection / Unknown 06/04/2020 10:50 AM [facility] 06/04/2020 11:36 AM [facility] Narrative [facility] MICROBIOLOGY - 06/04/2020 5:03 PM [facility] This nucleic acid amplification assay performance was validated by [facility]biology Laboratory. This test has been authorized [...] assay are available upon request. Meeta Henriquez APRN-RESPIRATORY CARE FACULTY LAB - MICROBIOLOG Y ORDERABLES [facility] MICRO[facility] [address] [place] [address], [facility] [phone] * HCG URINE QUALITATIVE (06/04/2020 10:50 AM [facility]) Pathologist [facility] Test Urine Negative Negative 06/04/2020 11:45 AM [facility] LABORATORY [facility] Urine URINE / Unknown Collection / Unknown 06/04/2020 10:50 AM [facility] 06/04/2020 11:33 AM [facility] Meeta Fofanautt [facility] LAB - URINALYSIS ORDERABLES Performing Organization Address City/[facility]/ZIP Co de Phone Number [facility] [address] [place] [address], [place] [phone] * QUANTIFERON-TB GOLD PLUS 4-TUBE (05/26/2020 1:00 PM [facility]) [facility] QuantiFERON NIL 0.02 IU/mL 0 11:53 PM [facility] [employer] ([facility]) Comment: Performed By: [facility] [address] [place] [id number] Telex Operator: Maribell Fragoso MD QuantiFERON TB Gold Plus Negative Negative 05/28/2020 11:53 PM [facility] [employer] ([facility]) Comment: Interpretive Data: Quantiferon TB [...] Mycobacterium tuberculosis Infection --- [place], 2010 (http://www.cdc.gov/mmwr/preview/mmwrhtml/gx8470q1.htm), for more information concerning test performance in low-prevalence populations and use in occupational screening. QuantiFERON Plus TB1 Minus NIL 0.01 0.00 - 0.34 IU/mL 05/28/2020 11:53 PM [facility] ([facility]) QuantiFERON Plus TB2 Minus NIL 0.01 0.00 - 0.34 IU/mL 05/28/2020 11:53 PM [facility] ([facility]) QuantiFERON Mitogen Minus NIL 9.03 IU/mL 05/28/2020 11:53 PM [facility]) Blood BLOOD SPECIMEN / Unknown Venipuncture / Unknown 05/26/2020 1:00 PM [facility] 05/26/2020 1:17 PM [facility] Meeta Henriquez PIG BREEDER-RESPIRATORY CARE FACULTY LAB - CHEMISTRY O RDERABLES [facility]) [address] * (ABNORMAL) URINALYSIS W/MICROSCOPIC NO CULTURE (05/21/2020 1:30 PM [facility]) Only the most recent of2 resultswithin the time period is included. Color UA Yellow Straw, Yellow, Colorless 05/21/2020 2:04 PM [facility] Clarity UA Clear Clear, Slt Cloudy 05/21/2020 2:04 PM [facility] Specific [place] UA 1.020 1.005 - 1.030 05/21/2020 2:04 PM [facility] pH UA 6.0 5.0 - 8.0 pH 05/21/2020 2:04 PM [facility] Protein UA Negative Negative mg/dL 05/21/2020 2:04 PM [facility] Glucose UA Negative Negative mg/dL 05/21/2020 2:04 PM [facility] Ketone UA Negative Negative mg/dL 05/21/2020 2:04 PM [facility] Bilirubin UA Negative Negative mg/dL 05/21/2020 2:04 PM [facility] Blood UA Negative Negative 05/21/2020 2:04 PM [facility] Nitrite UA Negative Negative 05/21/2020 2:04 PM [facility] Leukocyte Esterase 2+(A) Negative 05/21/2020 2:04 PM [facility] Urobilinogen UA Negative Negative mg/dL 05/21/2020 2:04 PM [facility] RBC UA 0-2 None Seen, 0-2, 3-5 /HPF 05/21/2020 2:04 PM [facility] WBC UA 0-5 None Seen, 0-5 /HPF 05/21/2020 2:04 PM [facility] Bacteria UA 1+(A) None, Trace /HPF 05/21/2020 2:04 PM [facility] Squamous Epithelial Cells UA 3-5(A) None Seen, 0-2 /HPF 05/21/2020 2:04 PM [facility] Mucus UA 1+ None, 1+ /LPF 05/21/2020 2:04 PM [facility] Urine URINE SPECIMEN OBTAINED BY CLEAN CATCH PROCEDURE / Unknown Collection / Unknown 05/21/2020 1:30 PM [facility] 05/21/2020 1:45 PM [facility] - 05/21/2020 2:04 PM [facility] Meeta Henriquez PIG BREEDER-RESPIRATORY CARE FACULTY LAB - URINALYSIS ORDERABLES Performing Organization Address [facility]/State/ZIP Co de Phone Number [facility] [address] [place] [address], [facility] [phone] * HERPES SIMPLEX 1+2 PCR (05/21/2020 1:30 PM [facility]) Herpes Simplex Virus PCR Not Detected 05/26/2020 6:13 AM [facility] ([facility]) Comment: NOT DETECTED - A negative result does not rule out the presence of PCR inhibitors in the patient specimen or assay specific nucleic acid in concentrations below the level of detection by the assay. INTERPRETIVE INFORMATION: Herpes Simplex Virus by PCR Test developed and characteristics determined by [facility]. See Compliance Statement B: [employer]/CS Performed by [facility], [address] [place] [id number] [email or web address], Maribell Fragoso MD, Lab. Director Source Blood 05/26/2020 6:13 AM [facility] [employer]Positioning ([facility]) Blood BLOOD SPECIMEN / Unknown Venipuncture / Unknown 05/21/2020 1:30 PM [facility] 05/21/2020 2:30 PM [facility] Meeta Henriquez PIG BREEDER-RESPIRATORY CARE FACULTY LAB - MICROBIOLOG Y ORDERABLES [facility] [employer] ([facility]) [address] * HLA TYPING LOW/HIGH RESOLUTION DPB1 (05/14/2020 4:10 PM [facility]) Only the most recent of2 resultswithin the time period is included. Typ DNA LR DPB1 Allele #1 *04 11/11/2020 10:20 AM CDT [facility] ([facility]) Typ DNA LR DPB1 [place]lele #2 - 11/11/2020 10:20 AM CDT [facility] ([facility]) Typ DNA HR DPB1 [place]lele #1 *04:01 11/11/2020 10:20 AM CDT [facility] ([facility]) Typ DNA HR DPB1 [place]le[place] #2 - 11/11/2020 10:20 AM CDT [facility] ([facility]) Test Methodology RTPCR/SSP 11/12/19 10:20 AM [facility]) HLA Result Comment PREDICTED IMMUNOGENICI TY:PERMISSIV E 11/11/2020 10:20 AM CDT [facility] ([facility]) Date Results Entered 05/19/2020 11/11/2020 10:20 AM CDT [facility] ([facility]) Comment: This test was developed and its performance characteristics determined by the [facility]. ??It has not been cleared [...] high complexity clinical laboratory testing. Performed at: ??[facility], [address] @ [place], [place] ??[address] Rn Maternal Child: Montana Siddiqui MD, Blood BLOOD SPECIMEN / Unknown Lab Venipuncture / Unknown 05/14/2020 4:10 PM [facility] 05/14/2020 4:10 PM [facility] Jhonny West MD LAB - BLOOD BANK O RDERABLES [facility] ([facility]) [address] [place] [address], [facility] * HLA TYPING DNA LOW RESOLUTION DR,DQ (05/14/2020 4:10 PM [facility]) Only the most recent of2 resultswithin the time period is included. DR DQ Low Resolution DRB1-1 *04 11/11/2020 10:19 AM CDT [facility] ([facility]) DR DQ Low Resolution DRB1-2 - 11/11/2020 10:19 AM CDT [facility] ([facility]) DR DQ Low Resolution DQB1-1 *03 11/11/2020 10:19 AM CDT [facility] ([facility]) DR DQ Low Resolution DQB1-2 - 11/11/2020 10:19 AM CDT [facility] ([facility]) DR DQ Low Resolution DRB3-1 Negative 11/11/2020 10:19 AM CDT [facility] ([facility]) DR DQ Low Resolution DRB3-2 Negative 11/11/2020 10:19 AM CDT [facility] ([facility]) DR DQ Low Resolution DRB4-1 *01 11/11/2020 10:19 AM CDT [facility] ([facility]) DR DQ Low Resolution DRB4-2 Negative 11/11/2020 10:19 AM CDT [facility] ([facility]) DR DQ Low Resolution DRB5-1 Negative 11/11/2020 10:19 AM CDT [facility] ([facility]) DR DQ Low Resolution DRB5-2 Negative 11/11/2020 10:19 AM CDT [facility] ([facility]) DR DQ Low Resolution Methodology Real Time PCR 11/11/2020 10:19 AM [facility] ([facility]) Comment DR DQ Low Resolution - 11/11/2020 10:19 AM [facility] ([facility]) DR DQ Low Resolution test date 05/19/2020 11/11/2020 10:19 AM [facility] ([facility]) Comment: This test was developed and its performance characteristics determined by the [facility]. ??It has not been cleared [...] high complexity clinical laboratory testing. ??CLIA ID# [id number] Performed at: ??[facility], [address] @ [place], [place] ??[address] Rn Maternal Child: Montana Siddiqui MD, Blood BLOOD SPECIMEN / Unknown Lab Venipuncture / Unknown 05/14/2020 4:10 PM [facility] 05/14/2020 4:10 PM [facility] Jhonny West MD LAB - BLOOD BANK O RDERABLES [facility] ([facility]) [address] [place] [address], [facility] * HLA TYPING DNA LOW RESOLUTION A,B,C (05/14/2020 4:10 PM [facility]) Only the most recent of2 resultswithin the time period is included. ABC DNA A1 *03 11/11/2020 10:19 AM CDT [facility] ([facility]) ABC DNA A2 *31 11/11/2020 10:19 AM [facility]) ABC DNA B1 *15 11/11/2020 10:19 AM [facility] ([facility]) ABC DNA B2 *27 11/11/2020 10:19 AM CDT [facility] ([facility]) ABC DNA BW1 6 11/11/2020 10:19 AM CDT [facility] ([facility]) ABC DNA BW2 4 11/11/2020 10:19 AM CDT [facility] ([facility]) ABC DNA C1 *02 11/11/2020 10:19 AM CDT [facility] ([facility]) ABC DNA C2 *03 11/11/2020 10:19 AM CDT [facility] ([facility]) ABC DNA Methodology Real Time PCR 11/11/2020 10:19 AM CDT [facility] ([facility]) Comment ABC DNA - 1 10:19 AM CDT [facility] ([facility]) ABC DNA Test Date 0 11/11/2020 10:19 AM CDT [facility] ([facility]) Comment: This test was developed and its performance characteristics determined by the [facility]. ??It has not been cleared [...] high complexity clinical laboratory testing. ??CLIA ID# [id number] Performed at: ??[facility], [address] @ [place], [place] ??[address] Rn Maternal Child: Montana Siddiqui MD, Blood BLOOD SPECIMEN / Unknown Lab Venipuncture / Unknown 05/14/2020 4:10 PM [facility] 05/14/2020 4:10 PM [facility] Jhonny West MD LAB - BLOOD BANK O RDERABLES [facility] ([facility]) [address] [place] [address], [facility] * HLA TYPING DNA HIGH RESOLUTION DR (05/14/2020 4:10 PM [facility]) Only the most recent of2 resultswithin the time period is included. DR Locus DRB1-1 *04:01 1 10:19 AM CDT [facility] ([facility]) DR DQ Low Resolution DRB1-2 - 11/11/2020 10:19 AM CDT [facility] ([facility]) DR Locus Test Method SSP 11/11/2020 10:19 AM CDT [facility] ([facility]) Comment DR Locus - 11/12/19 21 10:19 AM CDT [facility] ([facility]) DR Locus Test Date 0 11/11/2020 10:19 AM CDT [facility] ([facility]) Comment: This test was developed and its performance characteristics determined by the [facility]. ??It has not been cleared [...] high complexity clinical laboratory testing. ??CLIA ID# [id number] Performed at: ??[facility], [address] @ [place], [place] ??[address] Rn Maternal Child: Montana Siddiqui MD, Blood BLOOD SPECIMEN / Unknown Lab Venipuncture / Unknown 05/14/2020 4:10 PM [facility] 05/14/2020 4:10 PM [facility] Jhonny West MD LAB - BLOOD BANK O RDERABLES [facility] ([facility]) [address] [place] [address], [facility] * PTT [facility] (05/14/2020 3:19 PM [facility]) Pathologist [facility] APTT 32.1 23.0 - 38.4 Seconds 05/14/2020 4:06 PM [facility] Comment:Suggested therapeuti c range for full dose I.V. unfractionated heparin therapy for venous thromboembolism is 71 to 109 seconds. Blood BLOOD SPECIMEN / Unknown Venipuncture / Unknown 05/14/2020 3:19 PM [facility] 05/14/2020 3:57 PM [facility]eta [facility] - COAGULATION ORDERABLES Performing Organization Address City/[facility]/ZIP Co de Phone Number [facility]ORATORY [facility] [address] [place] [address], [facility] [phone] * PRE-TRANSPLANT ENGRAFT (05/14/2020 3:19 PM [facility]) Blood BLOOD SPECIMEN / Unknown Venipuncture / Unknown 05/14/2020 3:19 PM [facility] 05/14/2020 3:44 PM [facility] Meeta Florence [facility] LAB - CHEMISTRY O RDERABLES Performing Organization Address City/[facility]/ZIP Co de Phone Number [facility] ([facility]) [address] [place] [address] * HLA TYPING DNA HIGH RESOLUTION DQ (05/14/2020 3:19 PM [facility]) Only the most recent of2 resultswithin the time period is included. DR DQ Low Resolution DQB1-1 *03:01 11/11/2020 10:19 AM CDT [facility] ([facility]) DR DQ Low Resolution DQB1-2 *03:02 11/11/2020 10:19 AM CDT [facility] ([facility]) DQ Locus Methodology SSP 11/11/2020 10:19 AM T [facility] ([facility]) Comment DQ Locus - 11/12/19 21 10:19 AM CDT [facility] ([facility]) DQ Locus Test Date 0 11/11/2020 10:19 AM CDT [facility] ([facility]) Comment: This test was developed and its performance characteristics determined by the [facility]. ??It has not been cleared [...] high complexity clinical laboratory testing. ??CLIA ID# [id number] Performed at: ??[facility], [address] @ [place], [place] ??[address] Rn Maternal Child: Montana Siddiqui MD, Blood BLOOD SPECIMEN / Unknown Venipuncture / Unknown 05/14/2020 3:19 PM [facility] 05/14/2020 3:44 PM [facility] Meeta Henriquez PIG [facility]ED[facility]-RESPIRATORY [facility]ARE [facility]AC[facility]Y LAB - BLOOD BANK ORDERABLES [facility] ([facility]) [address] [place] [address], [facility] * HLA TYPING DNA HIGH RESOLUTION B (05/14/2020 3:19 PM [facility]) Only the most recent of2 resultswithin the time period is included. HLA B Locus B-1 *15:01 1 10:19 AM CDT [facility] ([facility]) HLA B Locus Bw-1 6 11/12/19 21 10:19 AM CDT [facility] ([facility]) HLA B Locus B-2 *27:05 1 10:19 AM CDT [facility] ([facility]) HLA B Locus Bw-2 4 11/12/19 21 10:19 AM CDT [facility] ([facility]) HLA B Locus Methodology SSP 11/11/2020 10:19 AM CDT [facility] ([facility]) Comment HLA B Locus - 11/11 10:19 AM CDT [facility] ([facility]) HLA B Locus Test Date 0 11/11/2020 10:19 AM CDT [facility] ([facility]) Comment: This test was developed and its performance characteristics determined by the [facility]. ??It has not been cleared [...] high complexity clinical laboratory testing. ??CLIA ID# [id number] Performed at: ??[facility], [address] @ [place], [place] ??[address] Rn Maternal Child: Montana Siddiqui MD, Blood BLOOD SPECIMEN / Unknown Venipuncture / Unknown 05/14/2020 3:19 PM [facility] 05/14/2020 3:44 PM [facility] Meeta Henriquez PIG BREEDER-RESPIRATORY CARE FACULTY LAB - BLOOD BANK ORDERABLES [facility] ([facility]) [address] [place] [address], [facility] * HLA TYPING DNA HIGH RESOLUTION A (05/14/2020 3:19 PM [facility]) Only the most recent of2 resultswithin the time period is included. A Locus HR A1 *03:01 11/11/2020 10:19 AM CDT [facility] ([facility]) A Locus HR A2 *31:01 11/11/2020 10:19 AM CDT [facility] ([facility]) A Locus HR Methodology SSP 11/11/2020 10:19 AM CDT [facility] ([facility]) Comment A Locus HR - 2020 10:19 AM CDT [facility] ([facility]) A Locus Test Date 0 11/11/2020 10:19 AM [facility] ([facility]) Comment: This test was developed and its performance characteristics determined by the [facility]. ??It has not been cleared [...] high complexity clinical laboratory testing. ??CLIA ID# [id number] Performed at: ??[facility], [address] @ [place], [place] ??[address] Rn Maternal Child: Montana Siddiqui MD, Blood BLOOD SPECIMEN / Unknown Venipuncture / Unknown 05/14/2020 3:19 PM [facility] 05/14/2020 3:44 PM [facility] Meeta Henriquez PIG BREEDER-RESPIRATORY CARE FACULTY LAB - BLOOD BANK ORDERABLES [facility] ([facility]) [address] [place] [address], [place] * HLA TYPING DNA HIGH RESOLUTION C (05/14/2020 3:19 PM [facility]) Only the most recent of2 resultswithin the time period is included. C Locus C1 *02:02 11/11/2020 10:[facility] C Locus C2 *03:03 11/11/2020 10:19 AM [facility] ([facility]) Test Method SSP 11/11/2020 10:19 AM [facility] ([facility]) Comment C Locus - 10:19 AM [facility] ([facility]) C Locus Test Date 0 11/11/2020 10:19 AM [facility] ([facility]) Comment: This test was developed and its performance characteristics determined by the [facility]. ??It has not been cleared or approved [...] high complexity clinical laboratory testing. ??CLIA ID# [id number] Performed at: ??[facility], [address] @ [place], [place] ??[address] Rn Maternal Child: Montana Siddiqui MD, Blood BLOOD SPECIMEN / Unknown Venipuncture / Unknown 05/14/2020 3:19 PM [facility] 05/14/2020 3:44 PM [facility] Meeta Fofanautt PIG BREEDER-RESPIRATORY CARE FACULTY LAB - BLOOD BANK ORDERABLES [facility] ([facility]) [address] [place] [address], [facility] * DONOR PANEL [id number] (05/14/2020 3:19 PM [facility]) Donor Hepatitis B Surface Antigen Negative Negative 05/15/2020 6:07 PM [facility] ([facility]) Comment:Test performed with [employer] Prism HBsAg kit. Donor Hepatitis B Core Virus Antibody Total Negative Negative 05/15/2020 6:07 PM [facility] ([facility]) Comment:Test performed with [employer] Prism HBcore kit. Donor Hepatitis C Antibody Negative Negative 05/15/2020 6:07 PM [facility] ([facility]) Comment:Test performed with [employer] Prism HCV kit. Donor Syphilis (T pallidum) Non Reactive Non Reactive 05/15/2020 6:07 PM [facility] ([facility]) Comment:Test performed with [employer] PK TP kit. Donor Cytomegalovirus Total Antibody Non Reactive Non Reactive 05/15/2020 6:07 PM [facility] ([facility]) Comment:Test performed with [employer] Capture-CMV IgG and IgM kit. Donor HIV-1/O/2 Antibody Negative Negative 05/15/2020 6:07 PM [facility] ([facility]) Comment:Test performed with [employer] ePad HIV O Plus kit. Donor HIV-1/HCV/HBV Comment Non Reactive 05/15/2020 6:07 PM [facility] ([facility]) Comment: ?Non-Reactive for HIV-1 and HIV-2 RNA ?Non-Reactive for HCV RNA ?Non-Reactive for HBV DNA Test performed with [employer] MPX kit. Donor HTLV-I/II Antibodies Qual Negative Negative 05/15/2020 6:07 PM [facility] ([facility]) Comment:Test performed with [employer] Prism HTLV-I/HTLV-II assay. Donor Zika Virus SHANDA Assay Non Reactive Non Reactive 05/15/2020 6:07 PM [facility] ([facility]) Comment:Test performed with [employer] Zika kit. Donor WNV SHANDA Assay Non Reactive Non Reactive 05/15/2020 6:07 PM [facility] ([facility]) Comment:Test performed with Aaliyah WNV kit. Donor T cruzi (Chagas) Non Reactive Non Reactive 05/15/2020 6:07 PM [facility] ([facility]) Comment:Test performed with [employer] Prism Chagas assay. Blood BLOOD SPECIMEN / Unknown Venipuncture / Unknown 05/14/2020 3:19 PM [facility] 05/14/2020 3:44 PM [facility] Narrative [facility] ([facility]) - 05/15/2020 6:07 PM [facility] Performed at: ??01 - [employer] [address] ??[id number] Rn Maternal Child: Alyx Llanos PhD, Phone: ??[phone] Meeta Henriquez [facility] LAB - CHEMISTRY O RDERABLES [facility] ([facility]) [address] [place] [address] * URIC ACID BLOOD (05/14/2020 3:19 PM [facility]) [facility] Uric Acid 4.2 2.6 - 7.2 mg/dL 05/14/2020 4:17 PM [facility] Blood BLOOD SPECIMEN / Unknown Venipuncture / Unknown 05/14/2020 3:19 PM [facility] 05/14/2020 3:44 PM [facility] Meeta Henriquez [facility] LAB - CHEMISTRY O RDERABLES [address] [address] [phone] * SUPA-MOYER VIRUS ANTIBODY TO VCA IGM (05/14/2020 3:19 PM [facility]) Pathologist [facility] Supa-Moyer Virus Antibody IgM Viral Capsid Antigen <10.0 0.0 - 43.9 U/mL 05/18/2020 1:14 AM [facility] ([facility]) Comment: INTERPRETIVE INFORMATION: Supa-Moyer Virus Antibody to ?Viral Capsid Antigen, IgM ??35.9 U/mL or less.......Not Detected ?36.0-43.9 U/mL..........Indeterminate - Repeat testing in ?10-14 days may be helpful. ??44.0 U/mL or greater....Detected Performed By: [facility] [employer] [address] [place] [address] Telex Operator: Maribell Fragoso MD Blood BLOOD SPECIMEN / Unknown Venipuncture / Unknown 05/14/2020 3:19 PM [facility] 05/14/2020 4:42 PM [facility] Meeta Henriquez APRN-RESPIRATORY CARE FACULTY LAB - SEROLOGY OR DERABLES Performing Organization Address [facility]/State/[facility] Co de Phone Number [facility] ([facility]) [address] * CYTOMEGALOVIRUS ANTIBODY IGM BLOOD (05/14/2020 3:19 PM [facility]) Cytomegalovirus Antibody IgM <30.0 0.0 - 29.9 AU/mL 05/16/2020 11:07 AM [facility] ([facility]) Comment: ?Negative ? <30.0 ?Equivocal ??30.0 - 34.9 ?Positive ? >34.9 A positive result is generally indicative of acute infection, reactivation or persistent IgM production. Blood BLOOD SPECIMEN / Unknown Venipuncture / Unknown 05/14/2020 3:19 PM [facility] 05/14/2020 4:32 PM [facility] Narrative [facility] ([facility]) - 05/16/2020 11:07 AM [facility] Performed at: ??01 - [facility] [address] [place], [place] ??[id number] Rn Maternal Child: Nathaniel Perez PhD, Phone: ??[phone] Meeta Henriquez PIG BREEDER-RESPIRATORY CARE FACULTY LAB - CHEMISTRY O RDERABLES [facility] ([facility]) [address] [place] [address], [facility] * CYTOMEGALOVIRUS ANTIBODY IGG BLOOD (05/14/2020 3:19 PM [facility]) Only the most recent of2 resultswithin the time period is included. Cytomegalovirus Antibody IgG 0.28 U/mL 05/18/2020 2:10 AM [facility] ([facility]) Comment: INTERPRETIVE INFORMATION: Cytomegalovirus Antibody, [...] laboratory at the same time. Performed By: [facility] [address] [place] [address] Telex Operator: Maribell Fragoso MD Blood BLOOD SPECIMEN / Unknown Venipuncture / Unknown 05/14/2020 3:19 PM [facility] 05/14/2020 4:42 PM [facility] Meeta Fofanautt PIG BREEDER-RESPIRATORY CARE FACULTY LAB - CHEMISTRY O RDERABLES [facility] ([facility]) [address] [place] [address], [facility] * (ABNORMAL) HERPES SIMPLEX 1+2 ANTIBODY IGG/IGM PANEL (05/14/2020 3:19 PM [facility]) Herpes Simplex Virus 1/2 Antibody IgG 11.60 IV 05/20/2020 5:29 AM [facility] Comment: INTERPRETIVE INFORMATION: HSV 1/2 [...] IgM 1.55(H) <=0.89 IV 05/20/2020 5:29 AM [facility] [employer] ([facility]) Comment: INTERPRETIVE INFORMATION: Herpes Simplex [...] than 12 ? months post-infection. Performed By: [facility] [address] [place] [address] Telex Operator: Maribell Fragoso MD Blood BLOOD SPECIMEN / Unknown Venipuncture / Unknown 05/14/2020 3:19 PM [facility] 05/14/2020 4:32 PM [facility] Meeta Henriquez PIG BREEDER-RESPIRATORY CARE FACULTY LAB - CHEMISTRY O RDERABLES [facility]) [address] * VARICELLA ZOSTER ANTIBODY IGM (05/14/2020 3:19 PM [facility]) Varicella zoster Virus Antibody IgM 0.22 <=0.90 ISR 05/19/2020 6:36 AM [facility]) Comment: INTERPRETIVE INFORMATION: Varicella-Zoster Virus Antibody, IgM [...] 12 months ?post-infection or immunization. Performed By: [facility] [address] [place] [address] Telex Operator: Maribell Fragoso MD Blood BLOOD SPECIMEN / Unknown Venipuncture / Unknown 05/14/2020 3:19 PM [facility] 05/14/2020 4:43 PM [facility] Meeta Henriquez PIG BREEDER-RESPIRATORY CARE FACULTY LAB - CHEMISTRY O RDERABLES [facility] ([facility]) [address] [place] [address], [facility] * VARICELLA ZOSTER ANTIBODY IGG (05/14/2020 3:19 PM [facility]) Varicella zoster Virus Antibody IgG 1484.0 IV 05/18/2020 3:11 AM [facility] [employer] ([facility]) Comment: INTERPRETIVE INFORMATION: VZV Ab, [...] laboratory at the same time. Performed By: [facility] [address] [place] [address] Telex Operator: Maribell Fragoso MD Blood BLOOD SPECIMEN / Unknown Venipuncture / Unknown 05/14/2020 3:19 PM [facility] 05/14/2020 4:42 PM [facility] Meeta Henriquez PIG BREEDER-RESPIRATORY CARE FACULTY LAB - CHEMISTRY O RDERABLES Performing Organization Address City/State/[facility] Co de Phone Number [facility] ([facility]) [address] [place] [address], [facility] * TOXOPLASMA GONDII ANTIBODY IGG (05/14/2020 3:19 PM [facility]) Toxoplasma Antibody IgG <3.0 IU/mL 05/18/2020 3:15 AM [facility] [employer] ([facility]) Comment: INTERPRETIVE INFORMATION: Toxoplasma Ab, [...] the amount of antibody present. Performed By: [facility] [address] [place] [address] Telex Operator: Maribell Fragoso MD Blood BLOOD SPECIMEN / Unknown Venipuncture / Unknown 05/14/2020 3:19 PM [facility] 05/14/2020 4:32 PM [facility] Meeta Henriquez PIG BREEDER-RESPIRATORY CARE FACULTY LAB - CHEMISTRY O RDERABLES [facility] [employer] ([facility]) [address] [place] [address] * (ABNORMAL) SUPA-MOYER VIRUS ANTIBODY TO VCA IGG (05/14/2020 3:19 PM [facility]) Supa-Moyer Virus Antibody IgG Viral Capsid Antigen 207.0(H) 0.0 - 21.9 U/mL 05/18/2020 2:19 AM [facility] ([facility]) Comment: INTERPRETIVE INFORMATION: Supa-Moyer Virus Antibody to ?Viral Capsid Antigen, IgG ??17.9 U/mL or less.......Not Detected ??18.0-21.9 U/mL..........Indeterminate - Repeat testing in ?10-14 days may be helpful. ??22.0 U/mL or greater....Detected Performed By: [facility] [address] [place] [address] Telex Operator: Maribell Fragoso MD Blood BLOOD SPECIMEN / Unknown Venipuncture / Unknown 05/14/2020 3:19 PM [facility] 05/14/2020 4:32 PM [facility] Meeta Henriquez APRN-RESPIRATORY CARE FACULTY LAB - CHEMISTRY O RDERABLES [facility] ([facility]) [address] [place] [address], [facility] * SICKLE CELL SCREEN (05/14/2020 3:19 PM [facility]) Pathologist [facility] Sickle Cell Screen Negative Negative 05/14/2020 4:11 PM [facility] Blood BLOOD SPECIMEN / Unknown Venipuncture / Unknown 05/14/2020 3:19 PM [facility] 05/14/2020 3:44 PM [facility] - HEMATOLOGY ORDERABLES Performing Organization Address [facility] Co de Phone Number [address] [address], [place] [phone] * TRIGLYCERIDES BLOOD (05/14/2020 3:19 PM [facility]) Pathologist [facility] Triglycerides 115 <150 mg/dL 05/14/2020 4:17 PM [facility] Comment: ATP III Classification of Triglycerides: ?<150 mg/dL: ??Normal ? 150 - 199 mg/dL: ??Borderline High ? 200 - 400 mg/dL: ??High ?>500 mg/dL: ??Very High Blood BLOOD SPECIMEN / Unknown Venipuncture / Unknown 05/14/2020 3:19 PM [facility] 05/14/2020 3:44 PM [facility] Meeta Henriquez APRN-RESPIRATORY CARE FACULTY LAB - CHEMISTRY O RDERABLES Performing Organization Address [facility]/ZIP Co de Phone Number [address] [address], [place] [phone] * COMPREHENSIVE METABOLIC PANEL (05/14/2020 3:19 PM [facility]) Pathologist [facility] BUN 8 7 - 26 mg/dL 05/14/2020 4:16 PM [facility] Creatinine 0.8 0.6 - 1.2 mg/dL 05/14/2020 4:16 PM [facility] Sodium 136 136 - 145 mmol/L 05/14/2020 4:16 PM [facility] Potassium 3.6 3.5 - 4.5 mmol/L 05/14/2020 4:16 PM [facility] Chloride 103 98 - 107 mmol/L 05/14/2020 4:16 PM [facility] CO2 25 22 - 29 mmol/L 05/14/2020 4:16 PM [facility] Glucose 100 70 - 115 mg/dL 05/14/2020 4:16 PM [facility] Calcium 8.8 8.4 - 10.2 mg/dL 05/14/2020 4:16 PM [facility] Protein Total 7.6 6.0 - 8.3 g/dL 05/14/2020 4:16 PM [facility] Albumin 4.3 3.4 - 5.0 g/dL 05/14/2020 4:16 PM [facility] Bilirubin Total 0.3 0.2 - 1.2 mg/dL 05/14/2020 4:16 PM [facility] Alkaline Phosphatase 98 40 - 150 Units/L 05/14/2020 4:16 PM [facility] ALT 16 0 - 55 Units/L 05/14/2020 4:16 PM [facility] AST 14 5 - 34 Units/L 05/14/2020 4:16 PM [facility] Anion Gap 12 8 - 18 05/14/2020 4:16 PM [facility] BUN/Creatinine Ratio 10 7 - 23 05/14/2020 4:16 PM [facility] Osmolality Calculated 280 270 - 300 mOsm/kg 05/14/2020 4:16 PM [facility] Albumin/Globulin Ratio 1.3 1.1 - 2.3 05/14/2020 4:16 PM [facility] eGFR >60 >60 mL/min/1.7 3 m2 05/14/2020 4:16 PM [facility] Blood BLOOD SPECIMEN / Unknown Venipuncture / Unknown 05/14/2020 3:19 PM [facility] 05/14/2020 3:44 PM [facility] Meeta Fofanaradha GARCIARESPIRATORY CARE FACULTY LAB - CHEMISTRY O RDERABLES [address] [address], [place] [phone] * HCG BETA BLOOD QUANTITATIVE (05/14/2020 3:19 PM [facility]) [facility] Beta-hCG Total Quantitative <3 <5 mIU/mL 05/14/2020 4:19 PM [facility] Comment: This assay is cleared for use [...] Unknown Venipuncture / Unknown 05/14/2020 3:19 PM [facility] 05/14/2020 3:44 PM [facility] Meeta Fofanaradha [facility] LAB - CHEMISTRY O RDERABLES Performing Organization Address [facility]/ZIP Co de Phone Number [address] [address], [place] [phone] * PHOSPHORUS BLOOD (05/14/2020 3:19 PM [facility]) [facility] Phosphorus 2.5 2.3 - 4.7 mg/dL 05/14/2020 4:17 PM [facility] Blood BLOOD SPECIMEN / Unknown Venipuncture / Unknown 05/14/2020 3:19 PM [facility] 05/14/2020 3:44 PM [facility] Meeta Fofanautt [facility] LAB - CHEMISTRY O RDERABLES [address] [address], [place] [phone] * MAGNESIUM BLOOD (05/14/2020 3:19 PM [facility]) [facility] Magnesium 1.8 1.6 - 2.6 mg/dL 05/14/2020 4:17 PM [facility] Blood BLOOD SPECIMEN / Unknown Venipuncture / Unknown 05/14/2020 3:19 PM [facility] 05/14/2020 3:44 PM [facility] Meeta Fofanautt PIG BREEDER-RESPIRATORY CARE FACULTY LAB - CHEMISTRY O RDERABLES Performing Organization Address [facility]/ZIP Co de Phone Number [address] [address], [facility] [phone] * LDH BLOOD (05/14/2020 3:19 PM [facility]) [facility] LDH Total 146 125 - 243 Units/L 05/14/2020 4:17 PM [facility] Blood BLOOD SPECIMEN / Unknown Venipuncture / Unknown 05/14/2020 3:19 PM [facility] 05/14/2020 3:44 PM [facility] Meeta Fofanaradha HARTN-RESPIRATORY CARE FACULTY LAB - CHEMISTRY O RDERABLES Performing Organization Address [facility] Co de Phone Number [address] [address], [facility] [phone] * HEPATITIS B SURFACE ANTIBODY (05/14/2020 3:19 PM [facility]) [facility] Hepatitis B Virus Surface Antibody Non-react elba Non-react elba 05/14/2020 4:59 PM [facility] Comment: < 8 mIU/mL Hepatitis B surface Antibody (HBsAb). Nonreactive for HBsAb - individual is considered not immune to Hepatitis B Virus infection. Hepatitis B Surface Antibody Quantitative 1.2 <8.0 mIU/mL 05/14/2020 4:59 PM [facility] Comment: Hepatitis B Surface Antibody Numeric Result Interpretation: ? Nonreactive: ?<8.0 mIU/mL ? Indeterminate: ??8.0 - 12.0 mIU/mL ? Reactive: ?>12.0 mIU/mL ? Blood BLOOD SPECIMEN / Unknown Venipuncture / Unknown 05/14/2020 3:19 PM [facility] 05/14/2020 4:25 PM [facility] Meeta Henriquez PIG BREEDER-RESPIRATORY CARE FACULTY LAB - CHEMISTRY O RDERABLES Performing Organization Address City/[facility]/ZIP Co de Phone Number [address] [address], [facility] [phone] * CHOLESTEROL BLOOD (05/14/2020 3:19 PM [facility]) Cholesterol Total 186 <200 mg/dL 05/14/2020 4:16 PM [facility] Blood BLOOD SPECIMEN / Unknown Venipuncture / Unknown 05/14/2020 3:19 PM [facility] 05/14/2020 3:44 PM [facility] Meeta Henriquez PIG BREEDERInteRNA TechnologiesRESPIRATORY CARE FACULTY LAB - CHEMISTRY O RDERABLES Performing Organization Address [facility]/ZIP Co de Phone Number [address] [address], [facility] [phone] * PROTEIN ELECTROPHORESIS BLOOD (05/14/2020 3:19 PM [facility]) Pathologist [facility] Interpretation Serum PE Normal Pattern Normal Pattern 05/31/2020 1:13 PM [facility] Comment: Serum capillary electrophoresis shows characteristic bands corresponding to albumin, alpha and beta globulins and polyclonal immunoglobulins. No monoclonal immunoglobulins detected. Non-secretory myeloma (NSM) and light chain only myeloma cannot be excluded based on this result. ??Recommend serum free light chain measurements for complete evaluation of plasma cell disorders. ?? Deepak Mckeon PhD, [facility] Clinical Health And Safety Technician box toe maker *The electrophoresis pattern and the interpretation have been reviewed and verified by the teaching physician. Protein Total 7.3 6.0 - 8.3 g/dL 05/31/2020 1:13 PM [facility] Albumin 4.4 3.3 - 5.6 g/dL 05/31/2020 1:13 PM [facility] Alpha-1 Globulins 0.3 0.2 - 0.4 g/dL 05/31/2020 1:13 PM [facility] Alpha-2 Globulins 0.7 0.5 - 1.0 g/dL 05/31/2020 1:13 PM [facility] Beta Globulins 0.8 0.6 - 1.1 g/dL 05/31/2020 1:13 PM [facility] Gamma Globulins 1.1 0.6 - 1.6 g/dL 05/31/2020 1:13 PM [facility] Blood BLOOD SPECIMEN / Unknown Venipuncture / Unknown 05/14/2020 3:19 PM [facility] 05/14/2020 4:25 PM [facility] Meeta Henriquez PIG BREEDER-RESPIRATORY CARE FACULTY LAB - CHEMISTRY O RDERABLES [facility] [address] [place] [address], [facility] [phone] * PATHOLOGY/CYTOLOGY REPORT ORDER (06/22/2014 7:01 PM [facility]) Narrative 06/22/2014 7:01 PM [facility] Ordered by an unspecified provider. Scanned Document LAB - PATHOLOGY/CYTO LOGY ORDERABLES * GROSS + MICRO EXAM (STL) (06/19/2014 3:37 PM [facility]) Case Report Surgical Pathology Report ? Case: [id number] ? Authorizing Provider: ??Praveena Cummins MD ??Collected: ? 06/19/2014 03:37 PM ? Ordering Location: ? [place] ?Received: ?06/22/2014 08:03 AM ? [facility] ? Pathologist: ? Cherelle Meza MD ? Specimen: ?Cyst ? 06/23/2014 9:35 AM [facility] Final Diagnosis A. CYST, RIGHT UPPER EYELID, EXCISION: - DERMOID CYST 06/23/2014 9:35 AM [facility] Clinical History The patient is a 13-year-old girl who underwent excision of a right upper eyelid cyst. 06/23/2014 9:35 AM [facility] Gross Description Submitted fixed in formalin [...] in cassette A1. (CT/pc) 06/23/2014 9:35 AM [facility] Microscopic Description 1 H&E slide Sections show a cyst lined with stratified squamous epithelium with adnexal structures within the cyst wall and filled with keratinous debris. 06/23/2014 9:35 AM [facility] Disclaimer The performance characteristics of all immunohistochemical and indirect immunofluorescence stains (if any) cited in this report were determined by the Histopathology Laboratory of [facility] in compliance with CLIA `88 regulations. Some of these tests rely on the use of analyte-specific reagents and are subject to specific labeling requirements by the FDA. Such tests were developed by the [facility] of [facility] and have not been cleared or approved by the FDA. The FDA has determined that such clearance or approval is not necessary. These tests are used for clinical purposes and should not be regarded as investigational or for research. This case has been personally reviewed and interpreted by the attending (teaching) pathologist. 06/23/2014 9:35 AM [facility] Pathology/Cytolo gy CYST TISSUE / Unknown 06/19/2014 3:37 PM [facility] 06/22/2014 8:03 AM [facility] Praveena Cummins MD LAB - PATHOLOGY /CYTOLOGY ORDERABLES Performing Organization Address City/[facility] Co de Phone Number [facility] [address] [phone] * IMAGING/RADIOLOGY/XRAY RESULTS ORDER (10/14/2012 3:13 PM CDT) Anatomical Region Laterality Modality Other Narrative 09/03/2012 10:53 AM CDT Procedure Note Document, Scanned - 09/03/2012 10:53 AM CDT Transcriptions Document, Scanned - 10/14/2012 3:13 PM CDT Scanned Document IMAGING
--- OUTSIDE RECORDS SUMMARY | 2024-07-02 16:51 | XMS_ITS | Data Portability ---
[facility] Address [address] [place] [address] Care Team Providers Care Channel Opener Name Role Phone ERNST ALEXANDER Primary Care Provider [phone] Assessment No assessment recorded. Plan of Treatment Reminders Order Date Submit Date Provider Last Modified By Organization Details Last Modified Time Details Appointments None recorded. Lab None recorded. Referral None recorded. Procedures None recorded. Surgeries None recorded. Imaging None recorded. Medication Orders Bactrim DS 800 mg-160 mg tablet 2019 [facility] [place], [address], 1 18:07:50 mupirocin calcium 2 % topical cream 2019 021 [facility] [address] [place], [address], 1 18:16:48 Patient TargetsNo targets recorded. Patient InstructionsNo instructions recorded. Reason for Referral None Reported. Problems Name Problem SNOMED Code Status Onset Date Resolution Date Notes Provider Name and Address Organization Details Recorded Time Anterior knee pain [id number] Active Karely Medellin MA null, [facility] 6 15:32:44 Problem Notes None recorded. Procedures Surgical History Date Name Laterality Status Provider Name and Address Organization Details Recorded Time 06/04/2016 endoscopy completed Sandy Godoy MA [facility] 04/23/2020 15:38:06 Imaging Results None recorded. Procedure [...] DateTime 01/02/2019 165.1 cm Karely Medellin MA [facility] 01/02/2019 10:43:14 Date Recorded Body mass index (BMI) Body mass index (BMI) Percentile per age and sex Body weight Provider Name and Address Organization Details Last Updated DateTime 01/02/2019 32.6 kg/m2 97 % 90904.1 g Karely Medellin MA [facility] 01/02/2019 10:44:40 Date Recorded Oxygen saturation Oxygen saturation in Arterial blood by Pulse oximetry Provider Name and Address Organization Details Last Updated DateTime 01/02/2019 98 % 98 % Karely Medellin MA [facility] 01/02/2019 10:45:59 Date Recorded Heart rate Provider Name an d Address Organization Details Last Updated DateTime 01/02/2019 85 /min Karely Medellin MA [facility] 06/2018 10:46:01 Date Recorded Body height Provider Name an d Address Organization Details Last Updated DateTime 02/13/2019 166.37 cm Karely Medellin MA [facility] 02/13/2019 14:10:10 Date Recorded Body mass index (BMI) Body mass index (BMI) Percentile per age and sex Body weight Provider Name and Address Organization Details Last Updated DateTime 02/13/2019 32.3 kg/m2 96 % 26604.7 g Karely Medellin MA [facility] 02/13/2019 14:10:14 Date Recorded Oxygen saturation Oxygen saturation in Arterial blood by Pulse oximetry Provider Name and Address Organization Details Last Updated DateTime 02/13/2019 97 % 97 % Karely Medellin MA [facility] 02/13/2019 14:11:52 Date Recorded Heart rate Provider Name an d Address Organization Details Last Updated DateTime 02/13/2019 95 /min Karelysteffany Medellin CHELITA [facility] 02/02 14:11:54 Date Recorded Body height Provider Name an d Address Organization Details Last Updated DateTime 01/13/2020 166.37 cm Karelysteffany Medellin CHELITA [facility] 01/13/2020 14:57:40 Date Recorded Body mass index (BMI) Percentile per age and sex Body mass index (BMI) Body weight Provider Name and Address Organization Details Last Updated DateTime 01/13/2020 96 % 32.2 kg/m2 74594.5 g Karely CHELITA Medellin [facility] 01/13/2020 14:59:05 Date Recorded Body temperature Provider Name a nd Address Organization Details Last Updated DateTime 01/13/2020 98.2 [degF] Karely KeoCHELITA cotto [facility] 01/13/2020 15:00:34 Date Recorded Oxygen saturation Oxygen saturation in Arterial blood by Pulse oximetry Provider Name and Address Organization Details Last Updated DateTime 01/13/2020 99 % 99 % Karely Medellin MA [facility] 01/13/2020 15:00:43 Date Recorded Heart rate Provider Name an d Address Organization Details Last Updated DateTime 01/13/2020 90 /min Karely Medellin MA [facility] 01/02 15:00:55 Date Recorded Body height Provider Name an d Address Organization Details Last Updated DateTime 04/23/2020 166.37 cm Sandy Godoy MA [facility] 04/23/20 20 15:39:57 Date Recorded Body temperature Provider Name a nd Address Organization Details Last Updated DateTime 04/23/2020 97.6 [degF] Sandy Godoy MA [facility] 020 15:40:30 Date Recorded Oxygen saturation Oxygen saturation in Arterial blood by Pulse oximetry Provider Name and Address Organization Details Last Updated DateTime 04/23/2020 99 % 99 % Sandy Godoy MA [facility] 04/23/2020 15:40:38 Date Recorded Heart rate Provider Name an d Address Organization Details Last Updated DateTime 04/23/2020 103 /min Sandy Godoy MA [facility] 04/23/20 20 15:40:42 Date Recorded Body mass index (BMI) Body mass index (BMI) Percentile per age and sex Body weight Provider Name and Address Organization Details Last Updated DateTime 04/23/2020 32.5 kg/m2 96 % 85272.69 g Sandy Godoy MA [facility] 04/23/2020 15:42:14 Date Recorded Body height Provider Name an d Address Organization Details Last Updated DateTime 01/27/2021 166.37 cm Sandy Godoy MA [facility] 01/28/20 21 18:09:42 Date Recorded Body temperature Provider Name a nd Address Organization Details Last Updated DateTime 01/27/2021 98.2 [degF] Sandy Godoy MA [facility] 021 18:10:59 Date Recorded Oxygen saturation Oxygen saturation in Arterial blood by Pulse oximetry Provider Name and Address Organization Details Last Updated DateTime 01/27/2021 98 % 98 % Sandy Godoy MA [facility] 01/27/2021 18:11:05 Date Recorded Heart rate Provider Name an d Address Organization Details Last Updated DateTime 01/27/2021 93 /min ARLETH Vincent Attn: Accounting,[address] [place], [address], [facility] 01/27/2021 18:49:17 Date Recorded Body mass index (BMI) Body mass index (BMI) Percentile per age and sex Body weight Provider Name and Address Organization Details Last Updated DateTime 01/27/2021 35.1 kg/m2 97 % 68489.77 g Sandy Godoy MA [facility] 01/27/2021 18:12:57 Date Recorded Systolic blood pressure Diastolic blood pressure Provider Name and Address Organization Details Last Updated DateTime 01/02/2019 126 mm[Hg] 84 mm[Hg] Karely Medellin MA [facility] 01/02/2019 10:45:51 Date Recorded Systolic blood pressure Diastolic blood pressure Provider Name and Address Organization Details Last Updated DateTime 02/13/2019 144 mm[Hg] 86 mm[Hg] aKrely Medellin MA [facility] 02/13/2019 14:11:49 Date Recorded Systolic blood pressure Diastolic blood pressure Provider Name and Address Organization Details Last Updated DateTime 01/13/2020 144 mm[Hg] 100 mm[Hg] Karely Medellin MA [facility] 01/13/2020 15:00:09 Date Recorded Systolic blood pressure Diastolic blood pressure Provider Name and Address Organization Details Last Updated DateTime 04/23/2020 158 mm[Hg] 100 mm[Hg] Sandy Godoy MA [facility] 04/23/2020 15:41:44 Date Recorded Systolic blood pressure Diastolic blood pressure Provider Name and Address Organization Details Last Updated DateTime 01/27/2021 130 mm[Hg] 98 mm[Hg] Sandy Godoy MA [facility] 01/27/2021 18:12:23 Social History Question Answer Notes LastModified by Organizat ion Details LastModified Time Tobacco Smoking Status Never Smoker Lucia Hernandez MA [facility] 05/06/2014 10:25:55 What Is Your Level [...] Anxious, Or Unable To Sleep At Night)? [id number] Information not available 01/27/2021 Do You Use [...] Skin Problems N Anemia N Heart Attack (DC) N Anxiety Disorder N Diabetes N Muscle, [...] 17:53:19 pneumococcal, unspecified formulation 1 completed Georgettesirisha SolitarioCHELITA go[place], [place] - [facility] 12/13/2018 17:53:26 pneumococcal, [...] 17:55:14 Meningococcal MCV4O 8 completed [facility] 06/21/2019 02:35:26 meningococcal B, OMV 0 completed CHELITA [place], [place] - [facility] 01/13/2020 16:27:05 Hep A, unspecified formulation 1 completed CHELITA [place] [facility] 08/10/2017 17:28:14 HPV, unspecified formulation 4 completed Karely Medellin [place] null, [place] [facility] 08/10/2017 17:28:32 HPV, unspecified formulation 5 completed Karely Medellin [place] null, [place] [facility] 08/10/2017 17:28:45 Influenza, split virus, quadrivalent, preservative 7 completed Karely Medellin MA null, [facility] 08/10/2017 17:29:05 meningococcal ACWY, unspecified formulation 2 completed CHELITA Green, [facility] 08/10/2017 17:29:22 Tdap 1 completed CHELITA Green, [facility] 08/10/2017 17:29:40 varicella 1 completed CHELITA Green, [facility] 08/10/2017 17:30:06 Past Encounters Encounter ID Performer Location Encounter Start Date Encounter Closed Date Diagnosis/Indication Diagnosis SNOMED-CT Code Diagnosis ICD10 Code Diagnosis Note [id number] [facility] [address] [place] [address] 05/06/2014 10:22:40 05/07/2014 17:07:00 Well child [id number] Vonnie Page [facility] [address] [place] [address] 01/13/2015 14:18:27 01/13/2015 15:15:01 Well child [id number] Alexander Jimenez PA-C [facility] [address] [place] [address] 04/20/2015 11:21:39 04/20/2015 12:11:40 Anterior knee pain 241059238 M25.569 [id number] HODA Vincent [address] [place] [address] 06/18/2015 16:33:21 06/22/2015 10:00:14 Anterior knee pain 653317129 M25.561 [id number] HODA Vincent [address] [place] [address] 07/02/2015 16:55:09 07/02/2015 17:40:18 Anterior knee pain 607690673 M25.561 [id number] Alexander Jimenez PA-C [facility] [address] [place] [address] 01/20/2016 15:07:54 01/20/2016 16:15:13 Well child 051345415 Z00.864 [id number] HODA Vincent [facility] [address] [place] [address] 12/20/2016 11:34:58 12/20/2016 14:52:43 Well child 381286594 Z00.826 [id number] Georgette Mathews MA [facility] [address] [place] [address] 09/10/2017 09:55:14 09/10/2017 10:46:54 Well child 037813956 Z00.129 Acute non- suppurative serous otitis media 550668399 H65.01 [id number] Alexander Jimenez PA-C [facility] [address] [place] [address] 11/22/2017 14:57:42 11/22/2017 15:46:32 Well child 826252668 Z00.955 [id number] Alexander Jimenez PA-C [facility] [address] [place] [address] 05/02/2018 15:39:06 05/02/2018 16:10:45 Posterior rhinorrhea 52557508 R09.82 [id number] Alexander Jimenez PA-C [facility] [address] [place] [address] 11/27/2018 16:53:42 11/27/2018 17:49:47 [id number] HODA Vincent [facility] [address] [place] [address] 01/02/2019 10:37:52 01/02/2019 15:09:32 Well child [id number] Z00.722 [id number] HODA Vincent [facility] [address] [place] [address] 02/13/2019 13:57:40 02/13/2019 15:13:58 Well child 855911813 Z00.157 [id number] Alexander Jimenez PA-C [facility] [address] [place] [address] 01/13/2020 14:47:58 01/13/2020 16:12:26 Well child visit 058806590 Z00.514 [id number] Alexander Jimenez PA-C [facility] [address] [place] [address] 04/23/2020 15:30:20 04/23/2020 16:10:30 Axillary hidradenitis suppurativa 394273344 L73.2 [id number] Alexander Jimenez PA-C [facility] [address] [place] [address] 01/27/2021 17:45:12 01/27/2021 18:58:51 Adult health examination 146346252 Z00.00 Health Concerns Section Related Observation LastModified [...] *SELF PAY* Ch istopher Mccabe 02/13/2019 1 [facility] [id number] Chistopher Mccabe 01/13/2020 1 [facility] [id number] Chistopher Mccabe 01/13/2020 1 [facility] Christopher R Mccabe [id number] Chistopher Mccabe 04/23/2020 1 [facility] [id number] Chistopher Mccabe 04/23/2020 1 [facility] Christopher R Mccabe [id number] Chistopher Mccabe 01/27/2021 1 [facility] [id number] Chistopher Mccabe 01/27/2021 1 [facility] Christopher R Mccabe [id number] Chistopher Mccabe Notes Date Note Type Note Provider Name and Address Organization Details Recorded Time 01/02/2019 text/html needs college physical no complaints Alexander Jimenez PA-C Attn: Accounting,[address] [facility] [facility], [place], [address], [facility] 01/02/2019 10:57:20 02/13/2019 text/html no complaints sports phys. Alexander Jimenez PA-C Attn: Accounting,[address] [facility], [place], [address], [facility] 02/13/2019 14:59:38 01/13/2020 text/html college phys...n o complaints Alexander Jimenez PA-C Attn: Accounting,[address] [facility], [place], [address], [facility] 01/13/2020 15:22:57 04/23/2020 text/html thinks she has infected armpit rt side.. Alexander Jimenez PA-C Attn: Accounting,[address] [facility], [place], [address], [facility] 04/23/2020 16:10:28 OBGyn Episode No OBEpisode recorded.
--- OUTSIDE RECORDS SUMMARY | 2024-07-02 16:51 | XMS_ITS | Clinical Summary ---
Author Organization [facility] Address [address] [place] [address] Care Team Providers Care Associate Professor Of Counseling Name Role Phone Unavailable Primary Care Provider Unavailabl e Source Comments [facility],non-owned Affiliates and Associated Physician Practices is amultiple site organization consisting of ambulatory clinics and hospital sitesin [place], [place], [place] and [place]. This disclosure is being madepursuant to the Care Everywhere program and may not contain all information available regarding this patient. Last updated 18.[facility] Allergies Active Allergy Reactions Criticality Noted Date [...] Department Care Team Description 06/27/2024 1:00 PM PERSONAL LINES AGENT - 06/27/2024 11:59 PM PERSONAL LINES AGENT Hospital Encounter [facility] [address] [place] [id number] Jorden West MD [employer] Discharge Disposition: Home or Self Care 05/30/2024 9:00 AM PERSONAL LINES AGENT - 05/30/2024 11:59 PM PERSONAL LINES AGENT Hospital Encounter [facility] [address] [place] [id number] Philly Bradford MD Discharge Disposition: Home or Self Care 05/30/2024 8:15 AM PERSONAL LINES AGENT - 05/30/2024 8:59 AM PERSONAL LINES AGENT Hospital Encounter [facility] [address] [place] [id number] Philly Bradford MD Discharge Disposition: Home or Self Care 05/30/2024 Travel 05/06/2024 Telephone [facility] [address] [place] [phone] Nereida Pérez Appointment (LM for pt to [...] Comments Blood Pressure 129/77 05/30/2024 9:16 AM PERSONAL LINES AGENT Pulse 95 05/30/2024 9:16 AM PERSONAL LINES AGENT Temperature 37 ??C (98.6 ??F) 06/10/2020 4:54 PM PERSONAL LINES AGENT Respiratory Rate 18 06/10/2020 7:10 PM PERSONAL LINES AGENT Oxygen Saturation 100% 06/10/2020 7:10 PM PERSONAL LINES AGENT Inhaled Oxygen Concentration - - Weight 110.5 kg (243 lb 9.6 oz) 05/30/2024 9:16 AM PERSONAL LINES AGENT Height 170.2 cm (5' 7 ) 05/30/2024 9:16 AM PERSONAL LINES AGENT Body Mass Index 38.15 05/30/2024 9:16 AM PERSONAL LINES AGENT Plan of Treatment Upcoming Encounters Date Type Department Care Team (Late st Contact Info) Description 07/25/2024 1:00 PM PERSONAL LINES AGENT Appointment [facility] [address] [place] [phone] Health Maintenance Due Date Last Done Comments [...] SONOGRAM - COMPLETE Routine 06/27/2024 1:04 PM PERSONAL LINES AGENT BMI 38.0-38.9,adult Chronic hypertension affecting (HCC) 26 weeks gestation of (HCC) Obesity affecting in second trimester, unspecified obesity type (HCC) Hypertension affecting in second trimester (HCC) SONOGRAM - COMPLETE Routine 05/30/2024 8:20 AM PERSONAL LINES AGENT Chronic hypertension affecting (HCC) Second (HCC) 23 weeks gestation of (HCC) from Last 3 Months Results * SONOGRAM - COMPLETE (06/27/2024 1:04 PM PERSONAL LINES AGENT) Only the most recent of2 resultswithin the [...] lb 8 ??oz EFW by ? Hadlock ([id number]) appropriate Growth Overview Exam date ?GA ?BPD [...] Heart / Thorax 4-chamber view. 3-vessel view. 3-vpouuf-dwtrhkp view. Abdomen ?Cord insertion. Stomach. Kidneys. Bladder. [...] sooner as indicated) Coding ====== Procedures ? 70658: US Preg Uterus Follow Up [facility] Cart[employer]cuer PACS Anatomical Region Laterality Modality Other 06/27/2024 1:04 PM PERSONAL LINES AGENT Jorden West MD [facility] ORDERABLES from Last 3 Months DEV HALL Personal/Famil y Father 1974 [address] [facility] Ashley Hall Personal/Famil y Self 2000 Dev Hall Personal/Famil y Father 1974 DENISSE HALL Personal/Famil y Grandmother 1949
--- OUTSIDE RECORDS SUMMARY | 2024-07-02 16:51 | XMS_ITS | Data Portability ---
Author Organization [facility] Address [address] [place] [address] Care Team Providers Care Pipe Installer Name Role Phone CAROLINE NICK Primary Care Provider [phone] Assessment Encounter Date Assessment Date Assessment LastModified [...] lab - CMP/CBC/u george acid 2023 024 [facility] (Lab), [address], [place], [address], 06/04/2024 04:47:25 protein:c reatinine ratio, urine 2023 024 [facility] (Lab), [address], [place], [address], 06/04/2024 04:47:26 Referral None recorded. Procedures None recorded. Surgeries None recorded. Imaging US, obstetric , 2nd or 3rd trimester 2023 024 [email or web address], [address], [address], [place], [address], 05/06/2024 09:02:20 Medication Orders None recorded. Patient TargetsNo targets recorded. Patient InstructionsNo instructions recorded. Reason for Referral None Reported. Results Created Date Observation Date Name Description Value Unit Range Abnormal Flag Note LastModifiedBy Organization Detail LastModifiedTime 04/28/20 24 04/28/2024 PROTE IN/CR EATIN INE RATIO , URINE creatinine, urine 36.9 mg/dL R-No refer ence range estab lishe d for this assay Not Available [facility] (Lab) [address] , [place], [address], 04/29/2024 05:18:31 04/28/20 24 04/28/2024 PROTE IN/CR EATIN INE RATIO , URINE protein, urine <4 mg/dL R-No refer ence range estab lishe d for this assay Not Available [facility] (Lab) [address], [place], [address], 04/29/2024 05:18:31 04/28/20 24 04/28/2024 PROTE IN/CR [...] fican t prote inuri a. Not Available [facility] (Lab) [address], [place], [address], 04/29/2024 05:18:31 04/28/20 24 04/28/2024 CBC W/DIF F WBC 8.6 10'3/ uL 3.5-10 .5 Not Available [facility] (Lab) [address], [place], [address], 04/29/2024 06:59:40 04/28/20 24 04/28/2024 CBC W/DIF F RBC 3.97 10'6/ uL (based on docume nted legal sex) 3.80-5 .20 Not Available [facility] (Lab) [address], [place], [address], 04/29/2024 06:59:40 04/28/20 24 04/28/2024 CBC W/DIF F HGB 12.3 g/dL (based on docume nted legal sex) 11.6-1 5.4 Not Available [facility] (Lab) [address], [place], [address], 04/29/2024 06:59:40 04/28/20 24 04/28/2024 CBC W/DIF F HCT 36.0 % (based on docume nted legal sex) 34.0-4 5.0 Not Available [facility] (Lab) [address], [place], [address], 04/29/2024 06:59:40 04/28/20 24 04/28/2024 CBC W/DIF F MCV 90.7 fL 80.0-9 9.0 Not Available [facility] (Lab) [address], [place], [address], 04/29/2024 06:59:40 04/28/20 24 04/28/2024 CBC W/DIF F MCH 31.0 pg 27.0-3 4.0 Not Available [facility] (Lab) [address] [place], [address], 04/29/2024 06:59:40 04/28/20 24 04/28/2024 CBC W/DIF F MCHC 34.2 g/dL 32.0-3 5.5 Not Available [facility] (Lab) [address] [place], [address], 04/29/2024 06:59:40 04/28/20 24 04/28/2024 CBC W/DIF F RDW 13.2 % 11.0-1 5.0 Not Available [facility] (Lab) [address] [facility], [place], [address], 04/29/2024 06:59:40 04/28/20 24 04/28/2024 CBC W/DIF F plt 288 10'3/ uL 150-40 0 Not Available [facility] (Lab) [address], [place], [address], 04/29/2024 06:59:40 04/28/20 24 04/28/2024 CBC W/DIF F MPV 11.5 fL 8.8-12 .1 Not Available [facility] (Lab) [address] [facility], [place], [address], 04/29/2024 06:59:40 04/28/20 24 04/28/2024 CBC W/DIF F NRBC's 0.0 % 0.0 Not Available [facility] (Lab) [address] [facility], [place], [address], 04/29/2024 06:59:40 04/28/20 24 04/28/2024 CBC W/DIF F absolute NRBCs 0.0 10'3/ uL no refere nce range establ ished Not Available [facility] (Lab) [address], [place], [address], 04/29/2024 06:59:40 04/28/20 24 04/28/2024 CBC W/DIF F neutrophils 75.3 % 34.0-7 3.0 high Not Available [facility] (Lab) [address] [facility], [place], [address], 04/29/2024 06:59:40 04/28/20 24 04/28/2024 CBC W/DIF F lymphocytes 19.6 % 15.0-5 0.0 Not Available [facility] (Lab) [address] [facility], [place], [address], 04/29/2024 06:59:40 04/28/20 24 04/28/2024 CBC W/DIF F monocytes 4.1 % 1.0-15 .0 Not Available [facility] (Lab) [address] [facility], [place], [address], 04/29/2024 06:59:40 04/28/20 24 04/28/2024 CBC W/DIF F eosinophils 0.5 % 0.0-8. 0 Not Available [facility] (Lab) [address] [facility], [place], [address], 04/29/2024 06:59:40 04/28/20 24 04/28/2024 CBC W/DIF F basophils 0.3 % 0.0-2. 0 Not Available [facility] (Lab) [address] [place], [address], 04/29/2024 06:59:40 04/28/20 24 04/28/2024 CBC W/DIF F immature granulocytes 0.2 % no define d refere nce range Not Available [facility] (Lab) [address] [facility], [place], [address], 04/29/2024 06:59:40 04/28/20 24 04/28/2024 CBC W/DIF F absolute neutrophils 6.5 10'3/ uL 1.5-8. 0 Not Available [facility] (Lab) [address] [place], [address], 04/29/2024 06:59:40 04/28/20 24 04/28/2024 CBC W/DIF F absolute lymphocytes 1.7 10'3/ uL 1.0-4. 0 Not Available [facility] (Lab) [address] [place], [address], 04/29/2024 06:59:40 04/28/20 24 04/28/2024 CBC W/DIF F absolute monocytes 0.4 10'3/ uL 0.2-1. 0 Not Available [facility] (Lab) [address] [facility], [place], [address], 04/29/2024 06:59:40 04/28/20 24 04/28/2024 CBC W/DIF F absolute eosinophils 0.0 10'3/ uL 0.0-0. 6 Not Available [facility] (Lab) [address] [facility], [place], [address], 04/29/2024 06:59:40 04/28/20 24 04/28/2024 CBC W/DIF F absolute basophils 0.0 10'3/ uL 0.0-0. 3 Not Available [facility] (Lab) [address] [facility], [place], [address], 04/29/2024 06:59:40 04/28/20 24 04/28/2024 CBC W/DIF [...] resul ts are expec roseann. Not Available [facility] (Lab) [address] [facility], [place], [address], 04/29/2024 06:59:40 04/28/20 24 04/28/2024 URIC ACID uric acid 4.8 mg/dL 2.3-6. 6 Not Available [facility] (Lab) [address] [facility], [place], [address], 04/29/2024 06:59:41 04/28/20 24 04/28/2024 CMP(C OMPRE HENSI VE METAB OLIC PANEL ) sodium 137 mmol/ L 133-14 6 Not Available [facility] (Lab) [address] [place], [address], 04/29/2024 06:59:41 04/28/20 24 04/28/2024 CMP(C OMPRE HENSI VE METAB OLIC PANEL ) potassium 3.7 mmol/ L 3.5-5. 1 Not Available [facility] (Lab) [address] [facility], [place], [address], 04/29/2024 06:59:41 04/28/20 24 04/28/2024 CMP(C OMPRE HENSI VE METAB OLIC PANEL ) chloride 102 mmol/ L 98-107 Not Available [facility] (Lab) [address] [facility], [place], [address], 04/29/2024 06:59:41 04/28/20 24 04/28/2024 CMP(C OMPRE HENSI VE METAB OLIC PANEL ) carbon dioxide 24 mmol/ L 21-31 Not Available [facility] (Lab) [address] [facility], [place], [address], 04/29/2024 06:59:41 04/28/20 24 04/28/2024 CMP(C OMPRE HENSI VE METAB OLIC PANEL ) anion gap 11 mmol/ L 4-13 Not Available [facility] (Lab) [address] [facility], [place], [address], 04/29/2024 06:59:41 04/28/20 24 04/28/2024 CMP(C OMPRE HENSI VE METAB OLIC PANEL ) blood urea nitrogen 5 mg/dL 7-25 low Not Available [facility] (Lab) [address] [facility], [place], [address], 04/29/2024 06:59:41 04/28/20 24 04/28/2024 CMP(C OMPRE HENSI VE METAB OLIC PANEL ) creatinine 0.54 mg/dL 0.60-1 .30 low Not Available [facility] (Lab) [address] [facility], [place], [address], 04/29/2024 06:59:41 04/28/20 24 04/28/2024 CMP(C OMPRE HENSI VE METAB OLIC PANEL ) egfrcr (CKD-epi 2020) >90 mL/mi n/1.7 3_m2 >=60 Not Available [facility] (Lab) [address] [facility], [place], [address], 04/29/2024 06:59:41 04/28/20 24 04/28/2024 CMP(C OMPRE HENSI VE METAB OLIC PANEL ) calcium 8.9 mg/dL 8.3-10 .5 Not Available [facility] (Lab) [address] [facility], [place], [address], 04/29/2024 06:59:41 04/28/20 24 04/28/2024 CMP(C OMPRE HENSI VE METAB OLIC PANEL ) glucose 82 mg/dL 70-100 Not Available [facility] (Lab) [address] [facility], [place], [address], 04/29/2024 06:59:41 04/28/20 24 04/28/2024 CMP(C OMPRE HENSI VE METAB OLIC PANEL ) protein, total 6.6 g/dL 6.4-8. 3 Not Available [facility] (Lab) [address] [facility], [place], [address], 04/29/2024 06:59:41 04/28/20 24 04/28/2024 CMP(C OMPRE HENSI VE METAB OLIC PANEL ) albumin 3.8 g/dL 3.5-5. 0 Not Available [facility] (Lab) [address] [facility], [place], [address], 04/29/2024 06:59:41 04/28/20 24 04/28/2024 CMP(C OMPRE HENSI VE METAB OLIC PANEL ) ALT 13 units /L 9-43 Not Available [facility] (Lab) [address] [facility], [place], [address], 04/29/2024 06:59:41 04/28/20 24 04/28/2024 CMP(C OMPRE HENSI VE METAB OLIC PANEL ) alkaline phosphatase 83 units /L 34-104 Not Available [facility] (Lab) [address] [facility], [place], [address], 04/29/2024 06:59:41 04/28/20 24 04/28/2024 CMP(C OMPRE HENSI VE METAB OLIC PANEL ) AST 13 units /L 13-39 Not Available [facility] (Lab) [address] [facility], [place], [address], 04/29/2024 06:59:41 04/28/20 24 04/28/2024 CMP(C OMPRE HENSI VE METAB OLIC PANEL ) bilirubin, total 0.3 mg/dL 0.2-1. 2 Not Available [facility] (Lab) [address] [facility], [place], [address], 04/29/2024 06:59:41 06/03/20 24 06/03/2024 CMP/C BC/UR IC ACID WBC 9.6 10'3/ uL 3.5-10 .5 Not Available [facility] (Lab) [address] [facility], [place], [address], 06/04/2024 04:47:24 06/03/20 24 06/03/2024 CMP/C BC/UR IC ACID RBC 3.85 10'6/ uL (based on docume nted legal sex) 3.80-5 .20 Not Available [facility] (Lab) [address] [facility], [place], [address], 06/04/2024 04:47:24 06/03/20 24 06/03/2024 CMP/C BC/UR IC ACID HGB 12.1 g/dL (based on docume nted legal sex) 11.6-1 5.4 Not Available [facility] (Lab) [address] [place], [address], 06/04/2024 04:47:24 06/03/20 24 06/03/2024 CMP/C BC/UR IC ACID HCT 36.4 % (based on docume nted legal sex) 34.0-4 5.0 Not Available [facility] (Lab) [address], [place], [address], 06/04/2024 04:47:24 06/03/20 24 06/03/2024 CMP/C BC/UR IC ACID MCV 94.5 fL 80.0-9 9.0 Not Available [facility] (Lab) [address], [place], [address], 06/04/2024 04:47:24 06/03/20 24 06/03/2024 CMP/C BC/UR IC ACID MCH 31.4 pg 27.0-3 4.0 Not Available [facility] (Lab) [address], [place], [address], 06/04/2024 04:47:24 06/03/20 24 06/03/2024 CMP/C BC/UR IC ACID MCHC 33.2 g/dL 32.0-3 5.5 Not Available [facility] (Lab) [address], [place], [address], 06/04/2024 04:47:24 06/03/20 24 06/03/2024 CMP/C BC/UR IC ACID RDW 13.3 % 11.0-1 5.0 Not Available [facility] (Lab) [address] [place], [address], 06/04/2024 04:47:24 06/03/20 24 06/03/2024 CMP/C BC/UR IC ACID plt 291 10'3/ uL 150-40 0 Not Available [facility] (Lab) [address] [place], [address], 06/04/2024 04:47:24 06/03/20 24 06/03/2024 CMP/C BC/UR IC ACID MPV 11.8 fL 8.8-12 .1 Not Available [facility] (Lab) [address] [place], [address], 06/04/2024 04:47:24 06/03/20 24 06/03/2024 CMP/C BC/UR IC ACID NRBC's 0.0 % 0.0 Not Available [facility] (Lab) [address] [facility], [place], [address], 06/04/2024 04:47:24 06/03/20 24 06/03/2024 CMP/C BC/UR IC ACID absolute NRBCs 0.0 10'3/ uL no refere nce range establ ished Not Available [facility] (Lab) [address] [facility], [place], [address], 06/04/2024 04:47:24 06/03/20 24 06/03/2024 CMP/C BC/UR IC ACID neutrophils 77.7 % 34.0-7 3.0 high Not Available [facility] (Lab) [address] [facility], [place], [address], 06/04/2024 04:47:24 06/03/20 24 06/03/2024 CMP/C BC/UR IC ACID lymphocytes 17.0 % 15.0-5 0.0 Not Available [facility] (Lab) [address] [facility], [place], [address], 06/04/2024 04:47:24 06/03/20 24 06/03/2024 CMP/C BC/UR IC ACID monocytes 4.3 % 1.0-15 .0 Not Available [facility] (Lab) [address] [facility], [place], [address], 06/04/2024 04:47:24 06/03/20 24 06/03/2024 CMP/C BC/UR IC ACID eosinophils 0.4 % 0.0-8. 0 Not Available [facility] (Lab) [address] [place], [address], 06/04/2024 04:47:24 06/03/20 24 06/03/2024 CMP/C BC/UR IC ACID basophils 0.2 % 0.0-2. 0 Not Available [facility] (Lab) [address] [facility], [place], [address], 06/04/2024 04:47:24 06/03/20 24 06/03/2024 CMP/C BC/UR IC ACID immature granulocytes 0.4 % no define d refere nce range Not Available [facility] (Lab) [address] [facility], [place], [address], 06/04/2024 04:47:24 06/03/20 24 06/03/2024 CMP/C BC/UR IC ACID absolute neutrophils 7.5 10'3/ uL 1.5-8. 0 Not Available [facility] (Lab) [address] [facility], [place], [address], 06/04/2024 04:47:24 06/03/20 24 06/03/2024 CMP/C BC/UR IC ACID absolute lymphocytes 1.6 10'3/ uL 1.0-4. 0 Not Available [facility] (Lab) [address] [facility], [place], [address], 06/04/2024 04:47:24 06/03/20 24 06/03/2024 CMP/C BC/UR IC ACID absolute monocytes 0.4 10'3/ uL 0.2-1. 0 Not Available [facility] (Lab) [address] [place], [address], 06/04/2024 04:47:24 06/03/20 24 06/03/2024 CMP/C BC/UR IC ACID absolute eosinophils 0.0 10'3/ uL 0.0-0. 6 Not Available [facility] (Lab) [address] [place], [address], 06/04/2024 04:47:24 06/03/20 24 06/03/2024 CMP/C BC/UR IC ACID absolute basophils 0.0 10'3/ uL 0.0-0. 3 Not Available [facility] (Lab) [address] [facility], [place], [address], 06/04/2024 04:47:24 06/03/20 24 06/03/2024 CMP/C BC/UR [...] resul ts are expec roseann. Not Available [facility] (Lab) [address] [facility], [place], [address], 06/04/2024 04:47:24 06/03/20 24 06/03/2024 CMP/C BC/UR IC ACID uric acid 4.8 mg/dL 2.3-6. 6 Not Available [facility] (Lab) [address] [facility], [place], [address], 06/04/2024 04:47:24 06/03/20 24 06/03/2024 CMP/C BC/UR IC ACID sodium 136 mmol/ L 133-14 6 Not Available [facility] (Lab) [address] [facility], [place], [address], 06/04/2024 04:47:24 06/03/20 24 06/03/2024 CMP/C BC/UR IC ACID potassium 4.1 mmol/ L 3.5-5. 1 Not Available [facility] (Lab) [address] [facility], [place], [address], 06/04/2024 04:47:24 06/03/20 24 06/03/2024 CMP/C BC/UR IC ACID chloride 103 mmol/ L 98-107 Not Available [facility] (Lab) [address] [facility], [place], [address], 06/04/2024 04:47:24 06/03/20 24 06/03/2024 CMP/C BC/UR IC ACID carbon dioxide 23 mmol/ L 21- Not Available [facility] (Lab) [address], [place], [address], 06/04/2024 04:47:24 06/03/20 24 06/03/2024 CMP/C BC/UR IC ACID anion gap 10 mmol/ L 4-13 Not Available [facility] (Lab) [address], [place], [address], 06/04/2024 04:47:24 06/03/20 24 06/03/2024 CMP/C BC/UR IC ACID blood urea nitrogen 9 mg/dL 7-25 Not Available [facility] (Lab) [address], [place], [address], 06/04/2024 04:47:24 06/03/20 24 06/03/2024 CMP/C BC/UR IC ACID creatinine 0.57 mg/dL 0.60-1 .30 low Not Available [facility] (Lab) [address], [place], [address], 06/04/2024 04:47:24 06/03/20 24 06/03/2024 CMP/C BC/UR IC ACID egfrcr (CKD-epi 2020) >90 mL/mi n/1.7 3_m2 >=60 Not Available [facility] (Lab) [address], [place], [address], 06/04/2024 04:47:24 06/03/20 24 06/03/2024 CMP/C BC/UR IC ACID calcium 9.1 mg/dL 8.3-10 .5 Not Available [facility] (Lab) [address] [place], [address], 06/04/2024 04:47:24 06/03/20 24 06/03/2024 CMP/C BC/UR IC ACID glucose 95 mg/dL 70-100 Not Available [facility] (Lab) [address] [place], [address], 06/04/2024 04:47:24 06/03/20 24 06/03/2024 CMP/C BC/UR IC ACID protein, total 6.9 g/dL 6.4-8. 3 Not Available [facility] (Lab) [address] [facility], [place], [address], 06/04/2024 04:47:24 06/03/20 24 06/03/2024 CMP/C BC/UR IC ACID albumin 3.8 g/dL 3.5-5. 0 Not Available [facility] (Lab) [address] [facility], [place], [address], 06/04/2024 04:47:24 06/03/20 24 06/03/2024 CMP/C BC/UR IC ACID ALT 14 units /L 9-43 Not Available [facility] (Lab) [address] [place], [address], 06/04/2024 04:47:24 06/03/20 24 06/03/2024 CMP/C BC/UR IC ACID alkaline phosphatase 96 units /L 34-104 Not Available [facility] (Lab) [address] [facility], [place], [address], 06/04/2024 04:47:24 06/03/20 24 06/03/2024 CMP/C BC/UR IC ACID AST 12 units /L 13-39 low Not Available [facility] (Lab) [address] [place], [address], 06/04/2024 04:47:24 06/03/20 24 06/03/2024 CMP/C BC/UR IC ACID bilirubin, total 0.3 mg/dL 0.2-1. 2 Not Available [facility] (Lab) [address] [place], [address], 06/04/2024 04:47:24 06/03/20 24 06/03/2024 PROTE IN/CR EATIN INE RATIO , URINE creatinine, urine 101.8 mg/dL R-No refer ence range estab lishe d for this assay Not Available [facility] (Lab) [address] [facility], [place], [address], 06/04/2024 04:47:26 06/03/20 24 06/03/2024 PROTE IN/CR EATIN INE RATIO , URINE protein, urine 19 mg/dL R-No refer ence range estab lishe d for this assay Not Available [facility] (Lab) [address] [facility], [place], [address], 06/04/2024 04:47:26 06/03/20 24 06/03/2024 PROTE IN/CR [...] fican t prote inuri a. Not Available [facility] (Lab) [address] [facility], [place], [address], 06/04/2024 04:47:26 05/05/20 24 05/06/2024 US, obste tric, 2nd or 3rd trime ster No observ ation record ed. [email or web address] [address], [place], [address], 05/06/2024 13:02:24 05/05/20 24 05/05/2024 US, obste tric, follo w-up No observ ation record ed. [email or web address] [address], [place], [address], 05/05/2024 23:01:08 06/02/20 24 05/30/2024 US, obste tric, follo w-up No observ ation record ed. [email or web address] [facility] [address] [facility] [place], [address], 06/06/2024 10:12:25 06/02/20 24 05/30/2024 US, obste tric, follo w-up No observ ation record ed. [email or web address] [facility] [address] [place], [address], 06/05/2024 07:25:53 06/23/19 25 05/30/2024 US, obste tric, follo w-up No observ ation record ed. [facility] [address], [place], [address], 06/27/2024 13:41:49 Result Notes None recorded. Problems Name Problem SNOMED Code Status Onset Date Resolution Date Notes Provider Name and Address Organization Details Recorded Time Surveill ance of contrace ption Completed 201706/22/2020 Encounte r for surveill ance of contrace ptives, unspecif ied;Ray rded Elsewher e: No Locat ion: [facility] S ource: EHR Acetylene Cutter gabi: N Practi ce ID: [id number] Jordi lable Time: 02:45:00 PM Carmen goldberg [facility] 11:56:[address] Concept Completed 201706/22/2020 Well woman check w/o abnormal finding; Recorded Elsewher e: No Locat ion: [facility] S ource: EHR Acetylene Cutter gabi: N Practi ce ID: [id number] Jordi lable Time: 02:45:00 PM Carmen goldberg [facility] 11:56:[address] Concept Completed 201706/22/2020 Encntr for routine child health exam w/o abnormal findings ;Recorde d Elsewher e: No Locat ion: [facility] S ource: EHR Acetylene Cutter gabi: N Practi ce ID: [id number] Jordi lable Time: 02:45:00 PM Carmen goldberg [facility] 1 11:56:00 Uses combined oral contrace ption [id number] Completed 201706/22/2020 Encounte r for surveill ance of contrace ptive pills;Pr actice ID: [id number] Carmen Vasquez null, [facility] 1 11:55:58 Hyperten sive disorder 89319906 Active 2022 Praveena Vinson [facility], [facility] 3 14:50:42 Mixed anxiety and depressi ve disorder 544161571 Active not treated Dian Trujillo MD [address], [place], [address], [facility] 4 15:50:21 Asthma 416999959 Active Praveena Vinson [facility], [facility] 4 15:44:53 Pregnanc y 48291578 Active 2023 Praveena Vinson [facility], [facility] 4 15:44:34 Asthma 118504678 Active Praveena Vinson [facility], [facility] 4 15:44:53 [facility] hyperten loly 26750982 Active 38wk delivery 04/28 - 200mg bid [place], bASA 2 tablets daily & MFM consult per SB . MFM follow up schedule d 07/25 US only MFM pt monitor BP at home send weekly log Antental testing @ 32wks Gricel Cabral null, [facility] 5 15:30:56 Mixed anxiety and depressi ve disorder 565718294 Active not treated Dian Trujillo MD [address], [place], [address], [place] [facility] 4 15:50:21 Body mass index 30+ - obesity 041330367 Active weekly antenata l testing at 37wks [facility] 5 22:17:44 Body mass index 30+ - obesity 103111394 Active weekly antenata l testing at 37wks [facility] 5 22:17:44 Problem Notes None recorded. Procedures Surgical History Date Name Laterality Status Provider Name and Address Organization Details Recorded Time 4 Date of Last Pap Smear completed Praveena Vinson [facility] 02/11/2024 14:41:19 1 extraction of wisdom tooth completed [facility] V[facility] 06/08/2022 14:51:58 Imaging Results Imaging Date Name Status LastModified by Organiz ation Details LastModified Time 05/06/2024 US, obstetric, 2nd or 3rd trimester completed [email or web address] [place] [address], [place], [id number], 05/06/2024 13:02:24 05/05/2024 US, obstetric, follow-up completed [email or web address] [facility] [address] [facility], [place], [id number], 05/05/2024 23:01:08 05/30/2024 US, obstetric, follow-up completed [email or web address] [facility] [address] [place] [address], [id number], 06/06/2024 10:12:25 05/30/2024 US, obstetric, follow-up completed [email or web address] [facility] [address] [place] [address], [id number], 06/05/2024 07:25:53 05/30/2024 US, obstetric, follow-up completed [email or web address] [facility] [address], [place], [id number], 06/27/2024 13:41:49 Procedure Notes None recorded. Medical Equipment None Reported. Allergies Allergen ID Allergen Name Allergen Category Reaction Reaction Severity Criticality Documentation Date Start Date Code Code System Note Provider Name and Address Organization Details Recorded Time [address] vancomyci n medicatio n Not available Not available Not available 02/11/2024 [id number] [facility] 4 14:46:41 Medications Name Sig Start [...] Address Organization Details Last Updated DateTime 05/05/2024 166169.799 32 g 165 mm[Hg] 110 mm[Hg] Andreina SAMSON - [facility] 05/05/2024 16:49:40 Date Recorded Body weight Systolic blood pressure Diastolic blood pressure Provider Name and Address Organization Details Last Updated DateTime 05/19/2024 943690.984 06 g 167 mm[Hg] 99 mm[Hg] Andreina Steven [facility] 05/19/2024 16:31:59 Date Recorded Body weight Body mass index (BMI) Body height Systolic blood pressure Diastolic blood pressure Provider Name and Address Organization Details Last Updated DateTime 06/03/2024 146049.3 5354 g 37.9 kg/m2 170.18 cm 144 mm[Hg] 93 mm[Hg] Andreina Harris [facility] 09:35:34 Date Recorded Body weight Body mass index (BMI) Body height Systolic blood pressure Diastolic blood pressure Systolic blood pressure Diastolic blood pressure Systolic blood pressure Diastolic blood pressure Provider Name and Address Organization Details Last Updated DateTime 5 821245. 32216 g 39 kg/m2 170.18 cm 165 mm[Hg] 116 mm[Hg] 166 mm[Hg] 112 mm[Hg] 152 mm[Hg] 108 mm[Hg] Andreina [facility] 17:09:52 Social History Question Answer Notes LastModified by Organizat ion Details LastModified Time Tobacco Smoking Status Never Smoker Praveena goldberg, [facility] 07/05/2022 10:29:23 Do You Have An Advance Directive? No [email or web address] Information n ot available 11/02/2020 What Is Your Level Of Alcohol Consumption? None [email or web address] Information not available 06/22/2020 Are You Blind Or Do You Have Difficulty Seeing? No [email or web address] Information n ot available 11/02/2020 What Is Your Level Of Caffeine Consumption? Occasional [email or web address] Information not available 06/22/2020 How Much Tobacco Do You Chew? None [email or web address] Information not available 11/02/2020 In The 14 Days Before Symptom Onset, Have You Had Close Contact With A Laboratory-confirm ed COVID-19 While That Case Was Ill? No [email or web address] Information n ot available 11/02/2020 In The 14 Days Before Symptom Onset, Have You Had Close Contact With A Person Who Is Under Investigation For COVID-19 While That Person Was Ill? No [email or web address] Information not available 11/02/2020 Have You Been To An Area Known To Be High Risk For COVID-19? No [email or web address] Information not available 11/02/2020 Are You Deaf Or Do You Have Serious Difficulty Hearing? No [email or web address] Information not available 11/02/2020 What Type Of Diet Are You Following? REGULAR [email or web address] Information n ot available 11/02/2020 What Is The Highest Grade Or Level Of School You Have Completed Or The Highest Degree You Have Received? 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 Yes [email or web address] Information not available 11/02/2020 Do You Use Protection During Sex? No [email or web address] Information not available 02/11/2024 Do You Use Your Seat Belt Or Car Seat Routinely? Yes [email or web address] Information not available 11/02/2020 Do You Have Smoke And Carbon Monoxide Detectors In Your Home? Yes Information not available 11/02/2020 How Much Tobacco Do You Smoke? No [email or web address] Information not available 11/02/2020 Do You Feel Stressed (tense, Restless, Nervous, Or Anxious, Or Unable To Sleep At Night)? [id number] [email or web address] Information not available 11/02/2020 Do You Use Any Illicit Or Recreational Drugs? No [email or web address] Information not available 06/22/2020 Do You Use Sunscreen Routinely? Yes [email or web address] Information not available 11/02/2020 Has Tobacco Cessation Counseling Been Provided? No [email or web address] Information not available 07/05/2022 Have You Used IV Drugs? No [email or web address] Information not available 11/02/2020 Do You Or Have You Ever Used Any Other Forms Of Tobacco Or Nicotine? No [email or web address] Information not available 07/05/2022 Sex: Unknown Functional Status Question Answer Note LastModified by Organizat ion Details LastModified Time Do you have difficulty walking or climbing stairs? No [email or web address] Information not available 07/05/2022 Are you able to walk? YESWOREST [email or web address] Information not available 11/02/2020 Are you able to care for yourself? Yes [email or web address] Information not available 07/05/2022 Do you have difficulty dressing or bathing? No Information not available 07/05/2022 What is your exercise level? Occasional [email or web address] Information not available 06/22/2020 Mental Status None recorded. Family History Relationship Description Onset Age of this Age Resolved Age Notes LastModified by Organization Details LastModified Time Father No current problems or disability [email or web address] Not available 06/22 11:56:45 Mother No current problems or disability [email or web address] Not available 06/22 11:56:45 Medical History Condition Response Allergies (Food, seasonal, environmental ) Y Other N Breast Cancer N Drug/Latex Allergies/Reactions N Blood Transfusion N Dermatologic Disorders N Lung Disease N Defects or Inherited Disease N Breast Problem N Gestational Diabetes N Hematologic disorders N Anesthesia Complications N History of STI N Deep Vein Thrombosis N Polycystic ovary syndrome N Anxiety Disorder Y Autoimmune disease N Arthritis N Infertility N Polyps N Acid Reflux (GERD) N History of abnormal pap N Cancer N Stroke N Varicosities N Neurologic/Epilepsy N Endometriosis N High Cholesterol N Headaches N Fibromyalgia N Kidney Disease N Heart Problems Y Kidney or Bladder Problems N Thyroid Problems N GI Problems N Eating Disorder [...] SNOMED-CT Code Diagnosis ICD10 Code Diagnosis Note [id number] Rocío Edmonds [facility] [address] [address] 06/22/2020 14:02:32 06/22/2020 15:04:44 Surveillance of contraception 265661163 Z30.40 Pt would like to restart ocp. [...] and signed. Pt verbalized understand ing. Vaginitis 58415698 N76.0 Discussed use of mild soap like [...] this patient? s visit, including available hand spinning mule tender upon arrive, temperatur e check and being asked a series of screening questions. All staff wore face coverings during this encounter, as well as provided additional cleaning and sanitizing of all surfaces, including countertop s, pens, chairs, door handles, light switches, etc, prior to and following the patient? s visit. [id number] Rocío Kendal [facility] [address] [address] 07/26/2020 14:14:39 07/26/2020 14:58:29 Vaginitis 38760081 N76.0 Discussed use of mild soap like [...] this patient? s visit, including available hand spinning mule tender upon arrive, vita e check and being asked a series of screening questions. All staff wore face coverings during this encounter, as well as provided additional cleaning and sanitizing of all surfaces, including countertop s, pens, chairs, door handles, light switches, etc, prior to and following the patient? s visit. Contracept ion care management 545284700 Z30.9 Elevated blood pressure today. Pt states [...] Elevated blood-pressure reading without diagnosis of hypertension 348544539 R03.0 Pt will call pcp for further evaluation . Discussed heart healthy diet and exercise. [id number] Rocío Edmonds [facility] [address],[place] [address] 10/18/2020 13:57:16 10/18/2020 14:16:26 Surveillance of oral contraception 388949200 Z30.41 Pt happy with new pill and would like to continue. [id number] [facility] [address] [place] [address] 11/02/2020 12:00:56 11/02/2020 13:27:10 Vaginitis 01503370 N76.0 [id number] [facility] [address] [place] [address] 12/16/2020 09:25:26 12/16/2020 11:02:32 Increased frequency of urination 831432364 R35.0 [id number] Ingrid Khanna MD [facility] [address],[place] [address] 07/26/2021 11:44:20 07/26/2021 12:24:34 Urinary tract infectious disease 64633811 N39.0 Dysuria 32326660 R30.9 Initial pr escription of oral contraception 731188503 Z30.011 [id number] Ingrid Khanna MD [facility] [address],[place] [address] 08/30/2021 09:55:58 08/30/2021 10:30:52 Surveillance of oral contraception 082377690 Z30.41 [id number] Praveenabrian Vinson [facility] [address],[place] [address] 06/08/2022 14:03:05 06/08/2022 15:00:16 Dysuria 98849096 R30.0 Urinary tr act infectious disease 68572791 N39.0 [id number] Rocío Edmonds [facility] [address],[place] [address] 06/20/2022 10:45:43 06/20/2022 11:46:08 test positive 754734239 Z32.01 Risk factors addressed: Tobacco Cessation, Safe [...] cf/sma/nip t. Handouts given and discussed with patient. ildbirth classes recommende d.New OB sheet given.If previous , counseling . Will return for follow up anil landon in 1-2 weeks. New OB and 1st look at 12 weeks. Will start baby aspirin for history of hypertensi on. Briefly discussed additional testing.Pt verbalizes that she understand s the importance of above instructio ns.All questions were answered.P atient reminded to have annual well woman examinatio n and address [facility] . [id number] [facility] [address],[place] [address] 06/20/2022 10:45:14 06/20/2022 11:28:10 screening 764754388 Z36.87 [id number] Ev Arenas [facility] [address],[place] [address] 06/23/2022 10:57:34 06/23/2022 13:08:25 Dysuria 60740146 R30.0 Pt here for dysuria and feeling [...] meantime. Pt verbalized understand ing. LEFTY tracy [id number] Nancy Fowler [facility] [address],[place] [address] 07/05/2022 09:57:49 07/05/2022 13:33:51 Missed miscarriage 79021179 O02.1 Z3A.01 [id number] Shraddha George CNM [facility] [address],[place] [address] 07/05/2022 10:29:08 07/05/2022 11:35:56 Missed miscarriage 04228249 O02.1 Acute urin yasmin tract infection 292965319 N39.0 increase water, urine for culture [id number] [facility] [address],[place] [address] 07/21/2022 15:42:41 07/24/2022 16:14:04 Miscarriage without complication 82815229 O03.9 Z3A.00 [id number] [facility] [address],[place] [address] 07/28/2022 15:31:42 07/28/2022 16:29:33 Retained products of conception 286091141 O02.1 Z3A.00 [id number] Mikael Trujillo MD [facility] [address],[place] [address] 08/07/2022 10:02:26 08/07/2022 16:40:25 Retained products of conception 753797904 O02.1 Z3A.00 22-year-ol d female with persistent [...] high. It was 55 two weeks ago. [id number] [facility] [address],[place] [address] 02/11/2024 13:39:54 02/11/2024 14:20:51 [id number] Mikael Trujillo MD [facility] [address],[place] [address] 02/11/2024 13:41:01 02/12/2024 14:00:34 Amenorrhea 01268333 N91.2 this patient is a 23-year-ol d [...] begin routine care at her next visit. [id number] [facility] [address],[place] [address] 03/10/2024 14:45:06 03/10/2024 15:17:27 screening 570081719 Z36.82 Z3A.11 [id number] Praveena Vinson [facility] [address],[place] [address] 03/10/2024 14:45:28 03/10/2024 16:04:58 Routine care 864750123 Z34.90 Gestation period, 11 weeks 05212976 Z3A.11 [id number] MD Kalin Pritchard [address],[place] [address] 04/10/2024 16:16:46 04/10/2024 17:30:34 Routine care 406808569 Z34.90 [id number] MD Kalin Pritchard [address],[place] [address] 04/14/2024 13:50:00 04/14/2024 14:42:58 [id number] Praveena Vinson [facility] [address],[place] [address] 04/28/2024 14:09:15 04/29/2024 10:04:44 Hypertensive disorder 41022382 I10 [id number] Nancy Fowler [facility] [address],[place] [address] 05/05/2024 15:24:47 05/05/2024 16:56:18 screening for malformation 070976704 Z36.3 Z3A.19 [id number] Mikael Trujillo MD [facility] [address],[place] [address] 05/05/2024 15:25:15 05/06/2024 06:17:49 Routine care 577590003 Z34.90 [id number] MD Kalin Pritchard [address],[place] [address] 05/19/2024 15:49:02 05/19/2024 17:10:47 Routine care 535497299 Z34.90 [id number] MD Kalin Pritchard [address],[place] [address] 06/03/2024 09:25:28 06/03/2024 10:21:42 Routine care 200669937 Z34.90 Pre-eclampsia 549795780 O14.92 Health Concerns Section Related Observation LastModified by Organization Detai ls LastModified Time None Recorded Concern Status LastModified by Organization Details LastModified Time None Recorded Advance Directives Directive N: Payers Encounter Date Sequence Insurance Name Policy Number Policy Pickard Covered Member ID Pickard Member ID Guarantor Name 05/05/2024 1 [facility] [id number] Ashley Hall [id number] Ashley Hall 05/05/2024 1 [facility] [id number] Ashley Hall [id number] Ashley Hall 05/19/2024 1 [facility] [id number] Ashley Hall [id number] Ashley Hall 06/03/2024 1 [facility] [id number] Ashley Hall [id number] Ashley Hall OBGyn Episode Ob Episode Information Episode Created Date Number of Fetuses Patient Bloodtype Patient rh Status Prepregnancy Weight lbs Domestic Partner Domestic Partner Phone Father Name Rubber Cutter Status 07/05/19 23 1 CLOSED Fetus Data First Name Last Name Admitted to NICU Weight (g) Sex Living Outcome Pediatric Complications Fetus ID Race Codes Race Delivery Type , Spontane ous [id number] Leon Calculation Initial Leon Date Initial Exam [...] Domestic Partner Domestic Partner Phone Father Name Rubber Cutter Status 03/10/20 24 1 A Positive 236 Darlene Foster OPEN Fetus Data First Name Last Name Admitted to NICU Weight (g) Sex Living Outcome Pediatric Complications Fetus ID Race Codes Race Delivery Type [id number] Problems Problem Notes testing at 32wksLe gina II US Abdomen portal vein prominent measuring 6mm Problem Name Start Date End Date Resolution Snomed Code Not e Essential hypertension 3834953 0 38wk delivery 04/28 - 200mg bid Labetalol, bASA 2 tablets daily & MFM consult per SB . MFM follow up scheduled 07/25 US [facility] pt monitor BP at home send weekly logAntental testing @ 32wks Body mass index 30+ - obesity 062606150 weekly antenata l testing at 37wks Asthma 624886442 Mixed anxiety and depressive disorder 374877105 wendy whitfield currently Leon Calculation Initial Leon [...] Gestation 0 [email or web address] 04/10/2024 09/24/19 25 0 Pre- Flowsheet Flowsheet Date 03/10/2024 Guillaume Score Blood Edema Fundus Height Fundus Units Glucose Ketones Leukocytes Nitrite Labor Signs Protein Cervic Dilation Cervic Effacement Cervic Station none none trace Type Weight in lbs Pre/Post Dialysis Refused Weight 238.460889494668 BP Diastolic BP Location Tested BP Systolic [...] Type Weight in lbs Pre/Post Dialysis Refused 236.985619876434 BP Diastolic BP Location Tested BP Systolic [...] Type Weight in lbs Pre/Post Dialysis Refused 237.773979890145 BP Diastolic BP Location Tested BP Systolic [...] Type Weight in lbs Pre/Post Dialysis Refused 236.599418358019 BP Diastolic BP Location Tested BP Systolic [...] pressure check and to do referral to [facility]. Flowsheet Date 04/29/2024 Guillaume Score Blood [...] Type Weight in lbs Pre/Post Dialysis Refused 236.292846162239 BP Diastolic BP Location Tested BP Systolic [...] Type Weight in lbs Pre/Post Dialysis Refused 238.757915613941 BP Diastolic BP Location Tested BP Systolic [...] Type Weight in lbs Pre/Post Dialysis Refused 242.025292142959 BP Diastolic BP Location Tested BP Systolic BP Type 93 L arm 144 sitting Fetus Heart Rate Present A 144 Fetus Movement A Yes Comments no complaints, no problems, routine care, no contractions, no vaginal bleeding, no loss of fluid, no crampingpree labs and gowth US Flowsheet Date 07/02/2024 Guillaume Score Blood Edema Fundus Height Fundus Units Glucose Ketones Leukocytes Nitrite Labor Signs Protein Cervic Dilation Cervic Effacement Cervic Station Type Weight in lbs Pre/Post Dialysis Refused 249.211455250225 BP Diastolic BP Location Tested BP Systolic BP Type 116 L arm 165 sitting 112 R arm 166 sitting 108 L arm 152 sitting Fetus Heart Rate Present Fetus Movement A Yes Comments Menstrual History Last Menstrual Date Menses Monthly [...]
[2024-07-02] MEDS: LABETALOL HCL 100 MG TABLET 400 MG PO (17:09)
== END 2024-07-02 18:45 | disposition home or self-care (01) ==
LOC: ANHOBOP 16:29 → ANHOBPP 16:33
PROVIDERS: PCP Family Medicine; Visit Provider Obstetrics & Gynecology
DX: O13.9 Gestational [pregnancy-induced] hypertension without significant proteinuria, unspecified trimester (principal); Z3A.00 Weeks of gestation of pregnancy not specified
CPT/HCPCS: 59025; 99199; A9270

== ENCOUNTER 2024-07-13 21:44 | Outpatient (CLI) | payer BC, SELFPAY ==
--- OUTSIDE RECORDS SUMMARY | 2024-07-13 21:51 | XMS_ITS | Patient Health Summary ---
Author Organization [facility] Address [address] [place] [address] Care Team Providers Care Candle Molder Name Role Phone Unavailable Primary Care Provider Unavailabl e Note from [facility],non-owned Affiliates and Associated Physician Practices is amultiple site organization consisting of ambulatory clinics and hospital sitesin [place], [place], [place] and [place]. This disclosure is being madepursuant to the Care Everywhere program and may not contain all information available regarding this patient. Last updated 18.[facility] Allergies * Vancomycin(Rash) -High Criticality Medications * Be aware that medications may not be up to date on this document. Alwaysverify current medications with the patient. * labetalol (Normodyne; Trandate) 200 MG tablet Take 2 (two) tablets by mouth every 12 hours Reasons: High Blood Pressure * Vit-DSS-Fe Fum-FA ( vitamin with iron) tablet Take 1 (one) tablet by mouth once daily * aspirin EC (Ecotrin) 81 MG tablet Take 2 (two) tablets by mouth once daily Active Problems Problem Noted Date Diagnosed Date Chronic hypertension with superimposed preeclamp brandie 07/09/2024 Second 07/09/2024 Hypertension complicating 05/31/2024 BMI 38.0-38.9,adult 05/31/2024 Obesity in , antepartum, third trimeste r 05/31/2024 Stem cell donor 06/01/2020 Social History [...] Sign Reading Time Taken Comments Blood Pressure 134/92 07/09/2024 11:32 AM PENETRATION TESTER Pulse 84 07/09/2024 11:32 AM PENETRATION TESTER Temperature 37 C (98.6 F) 06/10/2020 4:54 PM PENETRATION TESTER Respiratory Rate 18 06/10/2020 7:10 PM PENETRATION TESTER Oxygen Saturation 100% 06/10/2020 7:10 PM PENETRATION TESTER Inhaled Oxygen Concentration - - Weight 113.5 kg (250 lb 3.2 oz) 025 11:32 AM PENETRATION TESTER Height 170.2 cm (5' 7 ) 05/30/2024 9:16 AM PENETRATION TESTER Body Mass Index 39.19 05/30/2024 9:16 AM PENETRATION TESTER Procedures * BIOPHYSICAL PROFILE W NST(Performed 07/09/2024) Performed for Hypertension affecting in third trimester (HCC), BMI 38.0-38.9,adult, Second (HCC), Obesity in , antepartum, third trimester (HCC) * SONOGRAM - COMPLETE(Performed 06/27/2024) Performed for [...] for Stem cell donor * DONOR PANEL [id number](Performed 05/14/2020) Performed for Stem cell donor * [...] * IMAGING/RADIOLOGY/XRAY RESULTS ORDER(Performed 10/14/2012) Results * BIOPHYSICAL PROFILE W NST (07/09/2024 12:11 PM PENETRATION TESTER) Linked Results Indication ======== Chronic Hypertension, on Labetalol 800 mg/day intrahepatic umbilical vein varix (UVV) Low-risk cf-DNA & limited carrier screen (Hgb, CF, SMA) Seasonal asthma, Class II obesity History ====== OB History 2. Para 0 Lab Tests Test Date Result NIPT Low risk, Female Maternal Assessment = Physical Exam Height 170 cm, 5 ft 7 in. Weight 113 kg, 250 lb. Initial weight 107 kg, 236 lb. BMI 39.16 kg/m . Initial BMI 36.96 kg/m . Weight gain 6 kg, 14 lb Method ====== Transabdominal ultrasound. View: Sufficient ========= Keith . Number of fetuses: 1 Dating ====== Date Details Gest. age PORFIRIO LMP 12/18/2023 29 w + 1 d 09/23/2024 Stated PORFIRIO 29 w + 1 d 09/23/2024 Assigned dating based on the LMP, selected on 05/30/2024 29 w + 1 d 09/23/2024 General Evaluation Cardiac activity present. FHR 146 bpm. Presentation: cephalic Placenta: Placental site: anterior Amniotic Fluid Assessment ===== Amount of AF: normal MVP 6.9 cm. BERNICE 18.9 cm. Q1 6.9 cm, Q2 3.0 cm, Q3 3.9 cm, Q4 5.2 cm Biophysical Profile 2: breathing movements 2: Gross body movements 2: tone 2: Amniotic fluid volume NST: reactive /10 Biophysical profile score Non Stress Test NST interpretation: reactive. Baseline FHR 150 bpm. Baseline variability: moderate. Accelerations: present Growth Overview = Exam date GA BPD (mm) HC (mm) AC (mm) FL (mm) HL (mm) EFW (g) 05/30/2024 23w 3d 54.1 13% 204.7 9% 188.6 48% 42 46% 39.4 59% 599 44% 06/27/2024 27w 3d 65.6 12% 245.7 7% 231 43% 54.6 76% 47.7 64% 1127 51% Anatomy sex: female. Impression ========= Single, live, intrauterine at 29w 1d Amniotic fluid volume is normal Biophysical profile: 03/13 Intrahepatic UVV 7.3 mm, with normal segment 5.1 mm Follow-up ======== Follow-up U/S every 3-4 weeks for growth Start 1x-weekly NST+BPP now, increase to 2x-weekly NST at 32 weeks Coding ====== Procedures 91806: Biophysical Profile W NST 08572: US Uterus Limited ERN [facility] [employer] PACS Anatomical Region Laterality Modality Other 07/09/2024 12:1 1 PM PENETRATION TESTER R Domingo Trujillo MD [facility] ORDERABLES * SONOGRAM - COMPLETE (06/27/2024 1:04 PM PENETRATION TESTER) Only the most recent of2 resultswithin the time period is included. Linked Results Indication ======== Incomplete anatomy Chronic Hypertension, on Labetalol 200 mg Seasonal Asthma History ====== OB History 2. Para 0 Lab Tests Test Date Result NIPT Low risk, Female Maternal Assessment Physical Exam Height 170 cm, 5 ft 7 in. Weight 111 kg, 245 lb. Initial weight 107 kg, 236 lb. BMI 38.37 kg/m . Initial BMI 36.96 kg/m . Weight gain 4 kg, 9 lb Method ====== Transabdominal ultrasound. View: Sufficient ========= Keith . Number of fetuses: 1 Dating ====== Date Details Gest. age PORFIRIO LMP 12/18/2023 27 w + 3 d 09/23/2024 Stated PORFIRIO 27 w + 3 d 09/23/2024 U/S 06/27/2024 based upon AC, BPD, Femur, HC 27 w + 3 d 09/23/2024 Assigned dating based on the LMP, selected on 05/30/2024 27 w + 3 d 09/23/2024 General Evaluation Cardiac activity present. FHR 152 bpm. Presentation: cephalic Placenta: Placental site: anterior Umbilical cord: Cord vessels: 3 vessel cord. Insertion site: normal insertion Amniotic fluid: Amount of AF: normal. MVP 6.9 cm Biometry BPD 65.6 mm 26w 3d 12% Hadlock HC 245.7 mm 26w 5d 7% Hadlock Cerebellum tr 30.8 mm 23% [place] AC 231.0 mm 27w 3d 43% Hadlock Femur 54.6 mm 28w 6d 76% Hadlock Humerus 47.7 mm 28w 0d 64% Ashok HC / AC 1.06 Weight Calculation: EFW 1,127 g 51% Hadlock EFW (lb,oz) 2 lb 8 oz EFW by Hadlock ([id number]) appropriate Growth Overview Exam date GA BPD (mm) HC (mm) AC (mm) FL (mm) HL (mm) EFW (g) 05/30/2024 23w 3d 54.1 13% 204.7 9% 188.6 48% 42 46% 39.4 59% 599 44% 06/27/2024 27w 3d 65.6 12% 245.7 7% 231 43% 54.6 76% 47.7 64% 1127 51% Anatomy The following structures appear normal: Head / Neck Lateral ventricles. Cerebellum. Cisterna magna. Face Lips. Profile. Nose. Heart / Thorax 4-chamber view. 3-vessel view. 5-mzsvcv-jjlfzum view. Abdomen Cord insertion. Stomach. Kidneys. Bladder. Genitals. Spine Cervical spine. Thoracic spine. Lumbar spine. Sacral spine. Extremities / Skeleton Feet. The following structures were documented previously: Head / Neck Cranium. Choroid plexus. Midline falx. Cavum septi pellucidi. Thalami. Face Nasal bone. Orbits. Heart / Thorax RVOT view. LVOT view. Situs. Aortic arch view. Bicaval view. Ductal arch view. Great vessels. Right lung. Left lung. Diaphragm. Abdomen Bowel. Extremities / Skeleton Arms. Hands. Legs. sex: female. Maternal Structures Right Ovary Appears normal Cyst(s) Size 18.0 mm x 12.0 mm x 15.0 mm. Mean 15.0 mm. Vol 1.696 cm Left Ovary Not visualized Impression ========= Single, live, intrauterine [...] (or sooner as indicated) Coding ====== Procedures 07768: US Preg Uterus Follow Up ERN [facility] [employer] PACS Anatomical Region Laterality Modality Other 06/27/2024 1:04 PM PENETRATION TESTER Jorden West MD [facility] ORDERABLES * CARDIAC EKG ORDER (06/17/2020 8:57 PM PENETRATION TESTER) Narrative 06/17/2020 8:57 PM PENETRATION TESTER Ordered by an unspecified provider. Scanned Document CARDIAC SERVICES ORD ERABLES * SPECIAL TRAY REQUEST (06/10/2020 5:21 PM PENETRATION TESTER) Narrative Zeferino Dunlap MD - 06/10/2020 5:21 PM PENETRATION TESTER Zeferino Dunlap MD 06/14/2020 3:47 PM Cellular Therapy Collections Progress Note Ashley Hall 06/10/2020 Diagnosis: No diagnosis found. Protocol/Regimen: HPC Mobilization and Collection Interval History: 19 y.o. female healthy allo donor for her mother here for allogeneic hematopoietic progenitor collection #1. She reports mild tenderness around catheter insertion site. No F/C/N/V/D/JOINER/CP/SOB No Known Allergies Current Outpatient Medications Medication Sig Dispense Refill bacitracin ointment 28 g 3 multivitamin daily (THERAGRAN) tablet Take 1 Tab by mouth daily with food. mupirocin (BACTROBAN) 2 % ointment Apply to affected area 3 times daily sulfamethoxazole-trimethoprim (BACTRIM DS; SEPTRA DS) 800-160 MG tablet Take 1 tablet by mouth 2 times daily No current facility-administered medications for this encounter. Facility-Administered Medications Ordered in Other Encounters Medication Dose Route Frequency Provider Last Rate Last Admin acetaminophen (TYLENOL) tablet 650 mg 650 mg Oral q4h PRN Florence, Meeta, BULKING MACHINE OPERATOR-EXTRACT MIXER calcium gluconate 5 g in 300 mL NS 5 g Intravenous PRN Florence, Meeta, BULKING MACHINE OPERATOR-EXTRACT MIXER 100 mL/hr at 06/10/20 1040 5 g at 06/10/20 1040 Physical Exam Constitutional: VS: T=99, P=105, WG=021/93, Os sat=99% RA General Appearance: No acute [...] URINE QUAL POCT NOTIFICATION Collection Time: 06/10/20 7:40 AM Result Value Ref Range Comment Notification Label Only - See Separate Report HCG URINE QUALITATIVE - POCT (IP) INTERFACED Collection Time: 06/10/20 7:42 AM Result Value Ref Range HCG Qual Urine Negative Negative PT-INR [facility] Collection Time: 06/10/20 7:56 AM Result Value Ref Range PT 13.6 12.1 - 14.8 Seconds INR 1.1 See Comment TYPE AND SCREEN Collection Time: 06/10/20 10:00 AM Result Value Ref Range Antibody Screen NEG ABO Rh A POS CALCIUM IONIZED WHOLE BLOOD Collection Time: 06/10/20 10:16 AM Result Value Ref Range Ionized Calcium Whole Blood 1.19 mmol/L Adjusted Ionized Calcium 1.16 (L) 1.19 - 1.34 mmol/L pH Whole Blood 7.35 7.35 - 7.45 CBC W AUTO DIFFERENTIAL Collection Time: 06/10/20 10:16 AM Result Value Ref Range WBC 41.6 (H) 3.5 - 10.5 10 3/uL RBC 3.81 (L) 3.90 - 5.00 10 6/uL Hemoglobin 11.8 (L) 12.0 - 15.5 g/dL Hematocrit 34.9 (L) 35.0 - 45.0 % MCV 91.6 81.0 - 97.0 fL MCH 31.0 28.0 - 34.0 pg MCHC 33.8 32.0 - 36.0 g/dL Platelet Count 241 150 - 400 10 3/uL RDW-SD 42.6 36.0 - 50.0 fL RDW-CV 12.9 11.2 - 14.8 % MPV 10.7 9.3 - 12.8 fL nRBC Absolute 0.04 (H) 0 10 3/uL nRBC Auto 0.1 (H) 0 /100 WBC FLOW CYTOMETRY CD34 COUNT BLOOD Collection Time: 06/10/20 10:16 AM Result Value Ref Range Reason for test Stem cell donor V59.02 Client Specimen ID # [id number] Number of Markers 2 Flow Cytometry Results Differential Result % Comment Total Viability 93.2 Lymph/[place]an Region Surface Marker Results % Absolute Count (cell/uL) CD34 0.11 42.648 CD45 91.93 35,642.364 Flow Cytometry Interpretation Testing is technical only and does not require an interpretation of results. Disclaimer Test performed at [facility], [address] [place] [address], [id number]. This test was developed and its performance [...] perform high complexity clinical testing. Embedded Images DIFFERENTIAL MANUAL Collection Time: 06/10/20 10:16 AM Result Value Ref Range WBC (corrected for NRBC) 41.6 10 3/uL Total Cell Count 100 Neutrophils Absolute Manual 32.86 (H) 1.60 - 7.00 10 3/uL Lymphocyte Absolute 3.33 (H) 0.80 - 2.90 10 3/uL Monocytes Absolute 1.66 (H) 0.14 - 0.66 10 3/uL Eosinophils Absolute Manual 0.42 (H) 0.00 - 0.22 10 3/uL Band % Manual 25 (H) 0 - 10 % Neutrophil % Manual 54 30 - 60 % Lymphocyte % 8 (L) 20 - 45 % Monocytes % Manual 4 2 - 10 % Eosinophils % 1 1 - 6 % Metamyelocyte % Manual 6 (H) 0 % Myelocytes % Manual 2 (H) 0 % Platelet Estimate Adequate Adequate RBC Morphology Normal EKG 12-LEAD Collection Time: 06/10/20 2:14 PM Result Value Ref Range Ventricular Rate 122 BPM Atrial Rate 122 BPM P-R Interval 138 ms QRS Duration ms 84 ms Q-T Interval ms 330 ms QTC Calculation (Bezet) 470 ms Calculated P [place] 61 degrees Calculated R [place] 73 degrees Calculated T [place] 15 degrees Interpretation EKG SINUS TACHYCARDIA OTHERWISE NORMAL ECG NO PREVIOUS ECGS AVAILABLE CALCIUM IONIZED WHOLE BLOOD Collection Time: 06/10/20 5:01 PM Result Value Ref Range Ionized Calcium Whole Blood 1.16 mmol/L Adjusted Ionized Calcium 1.20 1.19 - 1.34 mmol/L pH Whole Blood 7.48 (H) 7.35 - 7.45 Procedures Leukapheresis Assessment and Plan Ashley Hall is a 19 year old female healthy related haplo donor who presents for peripheral blood hematopoietic progenitor collection #1. This is Day 5 of her Neupogen. Catheter placement was confirmed per IR note. No changes were noted in Donor History Questionnaire. Donor was stable going into collection. Pre collection Hct and Plt levels were acceptable. Post collection Hct=32.9, Emm=874 . The donor experienced slowly increasing tachycardia during the collection. EKG was obtained pointing to sinus tachycardia. HR stabilized ~115. The goal for this procedure is 6 x 10e6 CD34 cells/kg. Processed volume during procedure was 20,231 mL. Yield of collection was 5.53r44u0 CD34/kg. Goal was reached per Dr Mendoza. Zeferino Dunlap MD, PhD Zeferino Dunlap MD NURSING - DIET * DAILY WEIGHTS (06/10/2020 5:21 PM PENETRATION TESTER) Narrative Zeferino Dunlap MD - 06/10/2020 5:21 PM PENETRATION TESTER Zeferino Dunlap MD 06/14/2020 3:47 PM Cellular Therapy Collections Progress Note Ashley Hall 06/10/2020 Diagnosis: No diagnosis found. Protocol/Regimen: HPC Mobilization and Collection Interval History: 19 y.o. female healthy allo donor for her mother here for allogeneic hematopoietic progenitor collection #1. She reports mild tenderness around catheter insertion site. No F/C/N/V/D/JOINER/CP/SOB No Known Allergies Current Outpatient Medications Medication Sig Dispense Refill bacitracin ointment 28 g 3 multivitamin daily (THERAGRAN) tablet Take 1 Tab by mouth daily with food. mupirocin (BACTROBAN) 2 % ointment Apply to affected area 3 times daily sulfamethoxazole-trimethoprim (BACTRIM DS; SEPTRA DS) 800-160 MG tablet Take 1 tablet by mouth 2 times daily No current facility-administered medications for this encounter. Facility-Administered Medications Ordered in Other Encounters Medication Dose Route Frequency Provider Last Rate Last Admin acetaminophen (TYLENOL) tablet 650 mg 650 mg Oral q4h PRN FlorenceGriselMeeta, BULKING MACHINE OPERATOR-EXTRACT MIXER calcium gluconate 5 g in 300 mL NS 5 g Intravenous PRN Florence, Meeta, BULKING MACHINE OPERATOR-EXTRACT MIXER 100 mL/hr at 06/10/20 1040 5 g at 06/10/20 1040 Physical Exam Constitutional: VS: T=99, P=105, CW=303/93, Os sat=99% RA General Appearance: No acute [...] URINE QUAL POCT NOTIFICATION Collection Time: 06/10/20 7:40 AM Result Value Ref Range Comment Notification Label Only - See Separate Report HCG URINE QUALITATIVE - POCT (IP) INTERFACED Collection Time: 06/10/20 7:42 AM Result Value Ref Range HCG Qual Urine Negative Negative PT-INR [facility] Collection Time: 06/10/20 7:56 AM Result Value Ref Range PT 13.6 12.1 - 14.8 Seconds INR 1.1 See Comment TYPE AND SCREEN Collection Time: 06/10/20 10:00 AM Result Value Ref Range Antibody Screen NEG ABO Rh A POS CALCIUM IONIZED WHOLE BLOOD Collection Time: 06/10/20 10:16 AM Result Value Ref Range Ionized Calcium Whole Blood 1.19 mmol/L Adjusted Ionized Calcium 1.16 (L) 1.19 - 1.34 mmol/L pH Whole Blood 7.35 7.35 - 7.45 CBC W AUTO DIFFERENTIAL Collection Time: 06/10/20 10:16 AM Result Value Ref Range WBC 41.6 (H) 3.5 - 10.5 10 3/uL RBC 3.81 (L) 3.90 - 5.00 10 6/uL Hemoglobin 11.8 (L) 12.0 - 15.5 g/dL Hematocrit 34.9 (L) 35.0 - 45.0 % MCV 91.6 81.0 - 97.0 fL MCH 31.0 28.0 - 34.0 pg MCHC 33.8 32.0 - 36.0 g/dL Platelet Count 241 150 - 400 10 3/uL RDW-SD 42.6 36.0 - 50.0 fL RDW-CV 12.9 11.2 - 14.8 % MPV 10.7 9.3 - 12.8 fL nRBC Absolute 0.04 (H) 0 10 3/uL nRBC Auto 0.1 (H) 0 /100 WBC FLOW CYTOMETRY CD34 COUNT BLOOD Collection Time: 06/10/20 10:16 AM Result Value Ref Range Reason for test Stem cell donor V59.02 Client Specimen ID # [id number] Number of Markers 2 Flow Cytometry Results Differential Result % Comment Total Viability 93.2 Lymph/[place]an Region Surface Marker Results % Absolute Count (cell/uL) CD34 0.11 42.648 CD45 91.93 35,642.364 Flow Cytometry Interpretation Testing is technical only and does not require an interpretation of results. Disclaimer Test performed at [facility], [address], [place], [place], [address]. This test was developed and its performance [...] perform high complexity clinical testing. Embedded Images DIFFERENTIAL MANUAL Collection Time: 06/10/20 10:16 AM Result Value Ref Range WBC (corrected for NRBC) 41.6 10 3/uL Total Cell Count 100 Neutrophils Absolute Manual 32.86 (H) 1.60 - 7.00 10 3/uL Lymphocyte Absolute 3.33 (H) 0.80 - 2.90 10 3/uL Monocytes Absolute 1.66 (H) 0.14 - 0.66 10 3/uL Eosinophils Absolute Manual 0.42 (H) 0.00 - 0.22 10 3/uL Band % Manual 25 (H) 0 - 10 % Neutrophil % Manual 54 30 - 60 % Lymphocyte % 8 (L) 20 - 45 % Monocytes % Manual 4 2 - 10 % Eosinophils % 1 1 - 6 % Metamyelocyte % Manual 6 (H) 0 % Myelocytes % Manual 2 (H) 0 % Platelet Estimate Adequate Adequate RBC Morphology Normal EKG 12-LEAD Collection Time: 06/10/20 2:14 PM Result Value Ref Range Ventricular Rate 122 BPM Atrial Rate 122 BPM P-R Interval 138 ms QRS Duration ms 84 ms Q-T Interval ms 330 ms QTC Calculation (Bezet) 470 ms Calculated P [place] 61 degrees Calculated R [place] 73 degrees Calculated T [place] 15 degrees Interpretation EKG SINUS TACHYCARDIA OTHERWISE NORMAL ECG NO PREVIOUS ECGS AVAILABLE CALCIUM IONIZED WHOLE BLOOD Collection Time: 06/10/20 5:01 PM Result Value Ref Range Ionized Calcium Whole Blood 1.16 mmol/L Adjusted Ionized Calcium 1.20 1.19 - 1.34 mmol/L pH Whole Blood 7.48 (H) 7.35 - 7.45 Procedures Leukapheresis Assessment and Plan Ashley Hall is a 19 year old female healthy related haplo donor who presents for peripheral blood hematopoietic progenitor collection #1. This is Day 5 of her Neupogen. Catheter placement was confirmed per IR note. No changes were noted in Donor History Questionnaire. Donor was stable going into collection. Pre collection Hct and Plt levels were acceptable. Post collection Hct=32.9, Zkz=619 . The donor experienced slowly increasing tachycardia during the collection. EKG was obtained pointing to sinus tachycardia. HR stabilized ~115. The goal for this procedure is 6 x 10e6 CD34 cells/kg. Processed volume during procedure was 20,231 mL. Yield of collection was 5.70d78h0 CD34/kg. Goal was reached per Dr Mendoza. Zeferino Dunlap MD, PhD Meeta Henriquez APRN-[facility] NURSING - VITAL S IGNS AND ASSESSMENT * PUNCTURE SITE (06/10/2020 5:21 PM PENETRATION TESTER) Narrative Zeferino Dunlap MD - 06/10/2020 5:21 PM PENETRATION TESTER Zeferino Dunlap MD 06/14/2020 3:47 PM Cellular Therapy Collections Progress Note Ashley L Rafael 06/10/2020 Diagnosis: No diagnosis found. Protocol/Regimen: HPC Mobilization and Collection Interval History: 19 y.o. female healthy allo donor for her mother here for allogeneic hematopoietic progenitor collection #1. She reports mild tenderness around catheter insertion site. No F/C/N/V/D/JOINER/CP/SOB No Known Allergies Current Outpatient Medications Medication Sig Dispense Refill bacitracin ointment 28 g 3 multivitamin daily (THERAGRAN) tablet Take 1 Tab by mouth daily with food. mupirocin (BACTROBAN) 2 % ointment Apply to affected area 3 times daily sulfamethoxazole-trimethoprim (BACTRIM DS; SEPTRA DS) 800-160 MG tablet Take 1 tablet by mouth 2 times daily No current facility-administered medications for this encounter. Facility-Administered Medications Ordered in Other Encounters Medication Dose Route Frequency Provider Last Rate Last Admin acetaminophen (TYLENOL) tablet 650 mg 650 mg Oral q4h PRN Meeta Henriquez BULKING MACHINE OPERATOR-EXTRACT MIXER calcium gluconate 5 g in 300 mL NS 5 g Intravenous PRN Meeta Henriquez BULKING MACHINE OPERATOR-EXTRACT MIXER 100 mL/hr at 06/10/20 1040 5 g at 06/10/20 1040 Physical Exam Constitutional: VS: T=99, P=105, AG=446/93, Os sat=99% RA General Appearance: No acute [...] URINE QUAL POCT NOTIFICATION Collection Time: 06/10/20 7:40 AM Result Value Ref Range Comment Notification Label Only - See Separate Report HCG URINE QUALITATIVE - POCT (IP) INTERFACED Collection Time: 06/10/20 7:42 AM Result Value Ref Range HCG Qual Urine Negative Negative PT-INR [facility] Collection Time: 06/10/20 7:56 AM Result Value Ref Range PT 13.6 12.1 - 14.8 Seconds INR 1.1 See Comment TYPE AND SCREEN Collection Time: 06/10/20 10:00 AM Result Value Ref Range Antibody Screen NEG ABO Rh A POS CALCIUM IONIZED WHOLE BLOOD Collection Time: 06/10/20 10:16 AM Result Value Ref Range Ionized Calcium Whole Blood 1.19 mmol/L Adjusted Ionized Calcium 1.16 (L) 1.19 - 1.34 mmol/L pH Whole Blood 7.35 7.35 - 7.45 CBC W AUTO DIFFERENTIAL Collection Time: 06/10/20 10:16 AM Result Value Ref Range WBC 41.6 (H) 3.5 - 10.5 10 3/uL RBC 3.81 (L) 3.90 - 5.00 10 6/uL Hemoglobin 11.8 (L) 12.0 - 15.5 g/dL Hematocrit 34.9 (L) 35.0 - 45.0 % MCV 91.6 81.0 - 97.0 fL MCH 31.0 28.0 - 34.0 pg MCHC 33.8 32.0 - 36.0 g/dL Platelet Count 241 150 - 400 10 3/uL RDW-SD 42.6 36.0 - 50.0 fL RDW-CV 12.9 11.2 - 14.8 % MPV 10.7 9.3 - 12.8 fL nRBC Absolute 0.04 (H) 0 10 3/uL nRBC Auto 0.1 (H) 0 /100 WBC FLOW CYTOMETRY CD34 COUNT BLOOD Collection Time: 06/10/20 10:16 AM Result Value Ref Range Reason for test Stem cell donor V59.02 Client Specimen ID # [id number] Number of Markers 2 Flow Cytometry Results Differential Result % Comment Total Viability 93.2 Lymph/[place]an Region Surface Marker Results % Absolute Count (cell/uL) CD34 0.11 42.648 CD45 91.93 35,642.364 Flow Cytometry Interpretation Testing is technical only and does not require an interpretation of results. Disclaimer Test performed at [facility], [address] [place] [address], [id number]. This test was developed and its performance [...] perform high complexity clinical testing. Embedded Images DIFFERENTIAL MANUAL Collection Time: 06/10/20 10:16 AM Result Value Ref Range WBC (corrected for NRBC) 41.6 10 3/uL Total Cell Count 100 Neutrophils Absolute Manual 32.86 (H) 1.60 - 7.00 10 3/uL Lymphocyte Absolute 3.33 (H) 0.80 - 2.90 10 3/uL Monocytes Absolute 1.66 (H) 0.14 - 0.66 10 3/uL Eosinophils Absolute Manual 0.42 (H) 0.00 - 0.22 10 3/uL Band % Manual 25 (H) 0 - 10 % Neutrophil % Manual 54 30 - 60 % Lymphocyte % 8 (L) 20 - 45 % Monocytes % Manual 4 2 - 10 % Eosinophils % 1 1 - 6 % Metamyelocyte % Manual 6 (H) 0 % Myelocytes % Manual 2 (H) 0 % Platelet Estimate Adequate Adequate RBC Morphology Normal EKG 12-LEAD Collection Time: 06/10/20 2:14 PM Result Value Ref Range Ventricular Rate 122 BPM Atrial Rate 122 BPM P-R Interval 138 ms QRS Duration ms 84 ms Q-T Interval ms 330 ms QTC Calculation (Bezet) 470 ms Calculated P [place] 61 degrees Calculated R [place] 73 degrees Calculated T [place] 15 degrees Interpretation EKG SINUS TACHYCARDIA OTHERWISE NORMAL ECG NO PREVIOUS ECGS AVAILABLE CALCIUM IONIZED WHOLE BLOOD Collection Time: 06/10/20 5:01 PM Result Value Ref Range Ionized Calcium Whole Blood 1.16 mmol/L Adjusted Ionized Calcium 1.20 1.19 - 1.34 mmol/L pH Whole Blood 7.48 (H) 7.35 - 7.45 Procedures Leukapheresis Assessment and Plan Ashley Hall is a 19 year old female healthy related haplo donor who presents for peripheral blood hematopoietic progenitor collection #1. This is Day 5 of her Neupogen. Catheter placement was confirmed per IR note. No changes were noted in Donor History Questionnaire. Donor was stable going into collection. Pre collection Hct and Plt levels were acceptable. Post collection Hct=32.9, Kxu=095 . The donor experienced slowly increasing tachycardia during the collection. EKG was obtained pointing to sinus tachycardia. HR stabilized ~115. The goal for this procedure is 6 x 10e6 CD34 cells/kg. Processed volume during procedure was 20,231 mL. Yield of collection was 5.43m10i7 CD34/kg. Goal was reached per Dr Mendoza. Zeferino Dunlap MD, PhD Quan Paredes MD NURSING - WOUND SAMY TMENT * DIET NPO Except: NO EXCEPTIONS (06/10/2020 5:21 PM PENETRATION TESTER) Narrative [facility] - 06/10/2020 5:21 PM PENETRATION TESTER Zeferino Dunlap MD 06/14/2020 3:47 PM Cellular Therapy Collections Progress Note Ashley Hall 06/10/2020 Diagnosis: No diagnosis found. Protocol/Regimen: HPC Mobilization and Collection Interval History: 19 y.o. female healthy allo donor for her mother here for allogeneic hematopoietic progenitor collection #1. She reports mild tenderness around catheter insertion site. No F/C/N/V/D/JOINER/CP/SOB No Known Allergies Current Outpatient Medications Medication Sig Dispense Refill bacitracin ointment 28 g 3 multivitamin daily (THERAGRAN) tablet Take 1 Tab by mouth daily with food. mupirocin (BACTROBAN) 2 % ointment Apply to affected area 3 times daily sulfamethoxazole-trimethoprim (BACTRIM DS; SEPTRA DS) 800-160 MG tablet Take 1 tablet by mouth 2 times daily No current facility-administered medications for this encounter. Facility-Administered Medications Ordered in Other Encounters Medication Dose Route Frequency Provider Last Rate Last Admin acetaminophen (TYLENOL) tablet 650 mg 650 mg Oral q4h PRN FlorenceMeeta, BULKING MACHINE OPERATOR-EXTRACT MIXER calcium gluconate 5 g in 300 mL NS 5 g Intravenous PRN Florence, Meeta, BULKING MACHINE OPERATOR-EXTRACT MIXER 100 mL/hr at 06/10/20 1040 5 g at 06/10/20 1040 Physical Exam Constitutional: VS: T=99, P=105, AJ=958/93, Os sat=99% RA General Appearance: No acute [...] URINE QUAL POCT NOTIFICATION Collection Time: 06/10/20 7:40 AM Result Value Ref Range Comment Notification Label Only - See Separate Report HCG URINE QUALITATIVE - POCT (IP) INTERFACED Collection Time: 06/10/20 7:42 AM Result Value Ref Range HCG Qual Urine Negative Negative PT-INR [facility] Collection Time: 06/10/20 7:56 AM Result Value Ref Range PT 13.6 12.1 - 14.8 Seconds INR 1.1 See Comment TYPE AND SCREEN Collection Time: 06/10/20 10:00 AM Result Value Ref Range Antibody Screen NEG ABO Rh A POS CALCIUM IONIZED WHOLE BLOOD Collection Time: 06/10/20 10:16 AM Result Value Ref Range Ionized Calcium Whole Blood 1.19 mmol/L Adjusted Ionized Calcium 1.16 (L) 1.19 - 1.34 mmol/L pH Whole Blood 7.35 7.35 - 7.45 CBC W AUTO DIFFERENTIAL Collection Time: 06/10/20 10:16 AM Result Value Ref Range WBC 41.6 (H) 3.5 - 10.5 10 3/uL RBC 3.81 (L) 3.90 - 5.00 10 6/uL Hemoglobin 11.8 (L) 12.0 - 15.5 g/dL Hematocrit 34.9 (L) 35.0 - 45.0 % MCV 91.6 81.0 - 97.0 fL MCH 31.0 28.0 - 34.0 pg MCHC 33.8 32.0 - 36.0 g/dL Platelet Count 241 150 - 400 10 3/uL RDW-SD 42.6 36.0 - 50.0 fL RDW-CV 12.9 11.2 - 14.8 % MPV 10.7 9.3 - 12.8 fL nRBC Absolute 0.04 (H) 0 10 3/uL nRBC Auto 0.1 (H) 0 /100 WBC FLOW CYTOMETRY CD34 COUNT BLOOD Collection Time: 06/10/20 10:16 AM Result Value Ref Range Reason for test Stem cell donor V59.02 Client Specimen ID # [id number] Number of Markers 2 Flow Cytometry Results Differential Result % Comment Total Viability 93.2 Lymph/[place] Region Surface Marker Results % Absolute Count (cell/uL) CD34 0.11 42.648 CD45 91.93 35,642.364 Flow Cytometry Interpretation Testing is technical only and does not require an interpretation of results. Disclaimer Test performed at [facility], [address] [place] [address], [id number]. This test was developed and its performance [...] perform high complexity clinical testing. Embedded Images DIFFERENTIAL MANUAL Collection Time: 06/10/20 10:16 AM Result Value Ref Range WBC (corrected for NRBC) 41.6 10 3/uL Total Cell Count 100 Neutrophils Absolute Manual 32.86 (H) 1.60 - 7.00 10 3/uL Lymphocyte Absolute 3.33 (H) 0.80 - 2.90 10 3/uL Monocytes Absolute 1.66 (H) 0.14 - 0.66 10 3/uL Eosinophils Absolute Manual 0.42 (H) 0.00 - 0.22 10 3/uL Band % Manual 25 (H) 0 - 10 % Neutrophil % Manual 54 30 - 60 % Lymphocyte % 8 (L) 20 - 45 % Monocytes % Manual 4 2 - 10 % Eosinophils % 1 1 - 6 % Metamyelocyte % Manual 6 (H) 0 % Myelocytes % Manual 2 (H) 0 % Platelet Estimate Adequate Adequate RBC Morphology Normal EKG 12-LEAD Collection Time: 06/10/20 2:14 PM Result Value Ref Range Ventricular Rate 122 BPM Atrial Rate 122 BPM P-R Interval 138 ms QRS Duration ms 84 ms Q-T Interval ms 330 ms QTC Calculation (Bezet) 470 ms Calculated P [place] 61 degrees Calculated R [place] 73 degrees Calculated T [place] 15 degrees Interpretation EKG SINUS TACHYCARDIA OTHERWISE NORMAL ECG NO PREVIOUS ECGS AVAILABLE CALCIUM IONIZED WHOLE BLOOD Collection Time: 06/10/20 5:01 PM Result Value Ref Range Ionized Calcium Whole Blood 1.16 mmol/L Adjusted Ionized Calcium 1.20 1.19 - 1.34 mmol/L pH Whole Blood 7.48 (H) 7.35 - 7.45 Procedures Leukapheresis Assessment and Plan Ashley Hall is a 19 year old female healthy related haplo donor who presents for peripheral blood hematopoietic progenitor collection #1. This is Day 5 of her Neupogen. Catheter placement was confirmed per IR note. No changes were noted in Donor History Questionnaire. Donor was stable going into collection. Pre collection Hct and Plt levels were acceptable. Post collection Hct=32.9, Ybj=253 . The donor experienced slowly increasing tachycardia during the collection. EKG was obtained pointing to sinus tachycardia. HR stabilized ~115. The goal for this procedure is 6 x 10e6 CD34 cells/kg. Processed volume during procedure was 20,231 mL. Yield of collection was 5.49a18a3 CD34/kg. Goal was reached per Dr Mendoza. Zeferino Dunlap MD, PhD Quan Paredes MD DIET ORDERABLES [facility] * DIET REGULAR (06/10/2020 5:21 PM PENETRATION TESTER) Narrative [facility] - 06/10/2020 5:21 PM PENETRATION TESTER Zeferino Dunlap MD 06/14/2020 3:47 PM Cellular Therapy Collections Progress Note Ashley Hall 06/10/2020 Diagnosis: No diagnosis found. Protocol/Regimen: HPC Mobilization and Collection Interval History: 19 y.o. female healthy allo donor for her mother here for allogeneic hematopoietic progenitor collection #1. She reports mild tenderness around catheter insertion site. No F/C/N/V/D/JOINER/CP/SOB No Known Allergies Current Outpatient Medications Medication Sig Dispense Refill bacitracin ointment 28 g 3 multivitamin daily (THERAGRAN) tablet Take 1 Tab by mouth daily with food. mupirocin (BACTROBAN) 2 % ointment Apply to affected area 3 times daily sulfamethoxazole-trimethoprim (BACTRIM DS; SEPTRA DS) 800-160 MG tablet Take 1 tablet by mouth 2 times daily No current facility-administered medications for this encounter. Facility-Administered Medications Ordered in Other Encounters Medication Dose Route Frequency Provider Last Rate Last Admin acetaminophen (TYLENOL) tablet 650 mg 650 mg Oral q4h PRN Florence, Meeta, BULKING MACHINE OPERATOR-EXTRACT MIXER calcium gluconate 5 g in 300 mL NS 5 g Intravenous PRN Florence, Meeta, BULKING MACHINE OPERATOR-EXTRACT MIXER 100 mL/hr at 06/10/20 1040 5 g at 06/10/20 1040 Physical Exam Constitutional: VS: T=99, P=105, HJ=826/93, Os sat=99% RA General Appearance: No acute [...] URINE QUAL POCT NOTIFICATION Collection Time: 06/10/20 7:40 AM Result Value Ref Range Comment Notification Label Only - See Separate Report HCG URINE QUALITATIVE - POCT (IP) INTERFACED Collection Time: 06/10/20 7:42 AM Result Value Ref Range HCG Qual Urine Negative Negative PT-INR SL Collection Time: 06/10/20 7:56 AM Result Value Ref Range PT 13.6 12.1 - 14.8 Seconds INR 1.1 See Comment TYPE AND SCREEN Collection Time: 06/10/20 10:00 AM Result Value Ref Range Antibody Screen NEG ABO Rh A POS CALCIUM IONIZED WHOLE BLOOD Collection Time: 06/10/20 10:16 AM Result Value Ref Range Ionized Calcium Whole Blood 1.19 mmol/L Adjusted Ionized Calcium 1.16 (L) 1.19 - 1.34 mmol/L pH Whole Blood 7.35 7.35 - 7.45 CBC W AUTO DIFFERENTIAL Collection Time: 06/10/20 10:16 AM Result Value Ref Range WBC 41.6 (H) 3.5 - 10.5 10 3/uL RBC 3.81 (L) 3.90 - 5.00 10 6/uL Hemoglobin 11.8 (L) 12.0 - 15.5 g/dL Hematocrit 34.9 (L) 35.0 - 45.0 % MCV 91.6 81.0 - 97.0 fL MCH 31.0 28.0 - 34.0 pg MCHC 33.8 32.0 - 36.0 g/dL Platelet Count 241 150 - 400 10 3/uL RDW-SD 42.6 36.0 - 50.0 fL RDW-CV 12.9 11.2 - 14.8 % MPV 10.7 9.3 - 12.8 fL nRBC Absolute 0.04 (H) 0 10 3/uL nRBC Auto 0.1 (H) 0 /100 WBC FLOW CYTOMETRY CD34 COUNT BLOOD Collection Time: 06/10/20 10:16 AM Result Value Ref Range Reason for test Stem cell donor V59.02 Client Specimen ID # [id number] Number of Markers 2 Flow Cytometry Results Differential Result % Comment Total Viability 93.2 Lymph/[place] Region Surface Marker Results % Absolute Count (cell/uL) CD34 0.11 42.648 CD45 91.93 35,642.364 Flow Cytometry Interpretation Testing is technical only and does not require an interpretation of results. Disclaimer Test performed at [facility], [facility] [place], [place], [address]. This test was developed and its performance [...] perform high complexity clinical testing. Embedded Images DIFFERENTIAL MANUAL Collection Time: 06/10/20 10:16 AM Result Value Ref Range WBC (corrected for NRBC) 41.6 10 3/uL Total Cell Count 100 Neutrophils Absolute Manual 32.86 (H) 1.60 - 7.00 10 3/uL Lymphocyte Absolute 3.33 (H) 0.80 - 2.90 10 3/uL Monocytes Absolute 1.66 (H) 0.14 - 0.66 10 3/uL Eosinophils Absolute Manual 0.42 (H) 0.00 - 0.22 10 3/uL Band % Manual 25 (H) 0 - 10 % Neutrophil % Manual 54 30 - 60 % Lymphocyte % 8 (L) 20 - 45 % Monocytes % Manual 4 2 - 10 % Eosinophils % 1 1 - 6 % Metamyelocyte % Manual 6 (H) 0 % Myelocytes % Manual 2 (H) 0 % Platelet Estimate Adequate Adequate RBC Morphology Normal EKG 12-LEAD Collection Time: 06/10/20 2:14 PM Result Value Ref Range Ventricular Rate 122 BPM Atrial Rate 122 BPM P-R Interval 138 ms QRS Duration ms 84 ms Q-T Interval ms 330 ms QTC Calculation (Bezet) 470 ms Calculated P [place] 61 degrees Calculated R [place] 73 degrees Calculated T [place] 15 degrees Interpretation EKG SINUS TACHYCARDIA OTHERWISE NORMAL ECG NO PREVIOUS ECGS AVAILABLE CALCIUM IONIZED WHOLE BLOOD Collection Time: 06/10/20 5:01 PM Result Value Ref Range Ionized Calcium Whole Blood 1.16 mmol/L Adjusted Ionized Calcium 1.20 1.19 - 1.34 mmol/L pH Whole Blood 7.48 (H) 7.35 - 7.45 Procedures Leukapheresis Assessment and Plan Ashley Hall is a 19 year old female healthy related haplo donor who presents for peripheral blood hematopoietic progenitor collection #1. This is Day 5 of her Neupogen. Catheter placement was confirmed per IR note. No changes were noted in Donor History Questionnaire. Donor was stable going into collection. Pre collection Hct and Plt levels were acceptable. Post collection Hct=32.9, Wvk=980 . The donor experienced slowly increasing tachycardia during the collection. EKG was obtained pointing to sinus tachycardia. HR stabilized ~115. The goal for this procedure is 6 x 10e6 CD34 cells/kg. Processed volume during procedure was 20,231 mL. Yield of collection was 5.52u69c3 CD34/kg. Goal was reached per Dr Mendoza. Zeferino Dunlap MD, PhD Meeta ARIZMENDI DIET ORDERABLES [facility] * (ABNORMAL) CALCIUM IONIZED WHOLE BLOOD (06/10/2020 5:01 PM PENETRATION TESTER) Only the most recent of2 resultswithin the time period is included. Ionized Calcium Whole Blood 1.16 mmol/L 06/10/2020 5:12 PM [facility] Adjusted Ionized Calcium 1.20 1.19 - 1.34 mmol/L 06/10/2020 5:[address] [facility] pH Whole Blood 7.48(H) 7.35 - 7.45 06/10/2020 5:[address] [facility] Blood WHOLE BLOOD SPECIMEN / Unknown Venipuncture / Unknown 06/10/2020 5:01 PM PENETRATION TESTER 06/10/2020 5:11 PM PENETRATION TESTER Narrative [facility] - 06/10/2020 5:21 PM PENETRATION TESTER Zeferino Dunlap MD 06/14/2020 3:47 PM Cellular Therapy Collections Progress Note Ashley Christiansen Rafael 06/10/2020 Diagnosis: No diagnosis found. Protocol/Regimen: HPC Mobilization and Collection Interval History: 19 y.o. female healthy allo donor for her mother here for allogeneic hematopoietic progenitor collection #1. She reports mild tenderness around catheter insertion site. No F/C/N/V/D/JOINER/CP/SOB No Known Allergies Current Outpatient Medications Medication Sig Dispense Refill bacitracin ointment 28 g 3 multivitamin daily (THERAGRAN) tablet Take 1 Tab by mouth daily with food. mupirocin (BACTROBAN) 2 % ointment Apply to affected area 3 times daily sulfamethoxazole-trimethoprim (BACTRIM DS; SEPTRA DS) 800-160 MG tablet Take 1 tablet by mouth 2 times daily No current facility-administered medications for this encounter. Facility-Administered Medications Ordered in Other Encounters Medication Dose Route Frequency Provider Last Rate Last Admin acetaminophen (TYLENOL) tablet 650 mg 650 mg Oral q4h PRN Meeta Henriquez APRN-CNP calcium gluconate 5 g in 300 mL NS 5 g Intravenous PRN Meeta Henriquez APRN-EXTRACT MIXER 100 mL/hr at 06/10/20 1040 5 g at 06/10/20 1040 Physical Exam Constitutional: VS: T=99, P=105, GZ=182/93, Os sat=99% RA General Appearance: No acute [...] URINE QUAL POCT NOTIFICATION Collection Time: 06/10/20 7:40 AM Result Value Ref Range Comment Notification Label Only - See Separate Report HCG URINE QUALITATIVE - POCT (IP) INTERFACED Collection Time: 06/10/20 7:42 AM Result Value Ref Range HCG Qual Urine Negative Negative PT-INR [facility] Collection Time: 06/10/20 7:56 AM Result Value Ref Range PT 13.6 12.1 - 14.8 Seconds INR 1.1 See Comment TYPE AND SCREEN Collection Time: 06/10/20 10:00 AM Result Value Ref Range Antibody Screen NEG ABO Rh A POS CALCIUM IONIZED WHOLE BLOOD Collection Time: 06/10/20 10:16 AM Result Value Ref Range Ionized Calcium Whole Blood 1.19 mmol/L Adjusted Ionized Calcium 1.16 (L) 1.19 - 1.34 mmol/L pH Whole Blood 7.35 7.35 - 7.45 CBC W AUTO DIFFERENTIAL Collection Time: 06/10/20 10:16 AM Result Value Ref Range WBC 41.6 (H) 3.5 - 10.5 10 3/uL RBC 3.81 (L) 3.90 - 5.00 10 6/uL Hemoglobin 11.8 (L) 12.0 - 15.5 g/dL Hematocrit 34.9 (L) 35.0 - 45.0 % MCV 91.6 81.0 - 97.0 fL MCH 31.0 28.0 - 34.0 pg MCHC 33.8 32.0 - 36.0 g/dL Platelet Count 241 150 - 400 10 3/uL RDW-SD 42.6 36.0 - 50.0 fL RDW-CV 12.9 11.2 - 14.8 % MPV 10.7 9.3 - 12.8 fL nRBC Absolute 0.04 (H) 0 10 3/uL nRBC Auto 0.1 (H) 0 /100 WBC FLOW CYTOMETRY CD34 COUNT BLOOD Collection Time: 06/10/20 10:16 AM Result Value Ref Range Reason for test Stem cell donor [id number] Client Specimen ID # [id number] Number of Markers 2 Flow Cytometry Results Differential Result % Comment Total Viability 93.2 Lymph/[place] Region Surface Marker Results % Absolute Count (cell/uL) CD34 0.11 42.648 CD45 91.93 35,642.364 Flow Cytometry Interpretation Testing is technical only and does not require an interpretation of results. Disclaimer Test performed at [facility], [address] [place] [address], [id number]. This test was developed and its performance [...] perform high complexity clinical testing. Embedded Images DIFFERENTIAL MANUAL Collection Time: 06/10/20 10:16 AM Result Value Ref Range WBC (corrected for NRBC) 41.6 10 3/uL Total Cell Count 100 Neutrophils Absolute Manual 32.86 (H) 1.60 - 7.00 10 3/uL Lymphocyte Absolute 3.33 (H) 0.80 - 2.90 10 3/uL Monocytes Absolute 1.66 (H) 0.14 - 0.66 10 3/uL Eosinophils Absolute Manual 0.42 (H) 0.00 - 0.22 10 3/uL Band % Manual 25 (H) 0 - 10 % Neutrophil % Manual 54 30 - 60 % Lymphocyte % 8 (L) 20 - 45 % Monocytes % Manual 4 2 - 10 % Eosinophils % 1 1 - 6 % Metamyelocyte % Manual 6 (H) 0 % Myelocytes % Manual 2 (H) 0 % Platelet Estimate Adequate Adequate RBC Morphology Normal EKG 12-LEAD Collection Time: 06/10/20 2:14 PM Result Value Ref Range Ventricular Rate 122 BPM Atrial Rate 122 BPM P-R Interval 138 ms QRS Duration ms 84 ms Q-T Interval ms 330 ms QTC Calculation (Bezet) 470 ms Calculated P [place] 61 degrees Calculated R [place] 73 degrees Calculated T [place] 15 degrees Interpretation EKG SINUS TACHYCARDIA OTHERWISE NORMAL ECG NO PREVIOUS ECGS AVAILABLE CALCIUM IONIZED WHOLE BLOOD Collection Time: 06/10/20 5:01 PM Result Value Ref Range Ionized Calcium Whole Blood 1.16 mmol/L Adjusted Ionized Calcium 1.20 1.19 - 1.34 mmol/L pH Whole Blood 7.48 (H) 7.35 - 7.45 Procedures Leukapheresis Assessment and Plan Ashley Hall is a 19 year old female healthy related haplo donor who presents for peripheral blood hematopoietic progenitor collection #1. This is Day 5 of her Neupogen. Catheter placement was confirmed per IR note. No changes were noted in Donor History Questionnaire. Donor was stable going into collection. Pre collection Hct and Plt levels were acceptable. Post collection Hct=32.9, Ika=775 . The donor experienced slowly increasing tachycardia during the collection. EKG was obtained pointing to sinus tachycardia. HR stabilized ~115. The goal for this procedure is 6 x 10e6 CD34 cells/kg. Processed volume during procedure was 20,231 mL. Yield of collection was 5.93o38c2 CD34/kg. Goal was reached per Dr Mendoza. Zeferino Dunlap MD, PhD Zeferino Dunlap MD LAB - CHEMISTRY OR DERABLES [address] [address], [facility] [phone] * (ABNORMAL) DIFFERENTIAL MANUAL (06/10/2020 5:01 PM PENETRATION TESTER) Only the most recent of2 resultswithin the time period is included. WBC (corrected for NRBC) 37.2 10 3/uL 06/10/2020 6:[address] [facility] Total Cell Count 100 06/10/19 21 6:[address] [facility] Neutrophils Absolute Manual 31.62(H) 1.60 - 7.00 10 3/uL 06/10/2020 6:[address] [facility] Comment:(BANDS+SEGS) x WBC = NEUT # (ANC) Lymphocyte Absolute Manual 2.60 0.80 - 2.90 10 3/uL 06/10/2020 6:[address] [facility] Monocytes Absolute Manual 1.49(H) 0.14 - 0.66 10 3/uL 06/10/2020 6:[address] [facility] Band % Manual 15(H) 0 - 10 % 06/10/2020 6:[address] [facility] Neutrophil % Manual 70(H) 30 - 60 % 06/10/2020 6:[address] [facility] Lymphocyte % Manual 7(L) 20 - 45 % 06/10/2020 6:[address] [facility] Monocytes % Manual 4 2 - 10 % 06/10/2020 6:[address] [facility] Metamyelocyte % Manual 3(H) 0 % 06/10/2020 6:[address] [facility] Myelocytes % Manual 1(H) 0 % 06/10/2020 6:[address] [facility] Platelet Estimate Decreased( A) Adequate 06/10/2020 6:[address] [facility] RBC Morphology Normal 06/10/2020 6:[address] [facility] Blood BLOOD SPECIMEN / Unknown Venipuncture / Unknown 06/10/2020 5:01 PM PENETRATION TESTER 06/10/2020 5:16 PM PENETRATION TESTER Meeta Henriquez BULKING MACHINE OPERATOR-EXTRACT MIXER LAB - HEMATOLOGY ORDERABLES Performing Organization Address [facility]/State/[facility] Co de Phone Number [facility] [address] [place] [id number], [facility] [phone] * (ABNORMAL) CBC W AUTO DIFFERENTIAL (06/10/2020 5:01 PM PENETRATION TESTER) Only the most recent of4 resultswithin the time period is included. WBC 37.2(H) 3.5 - 10.5 10 3/uL 06/10/2020 5:[address] [facility] Comment:All CBC parameters h ave been checked. RBC 3.58(L) 3.90 - 5.00 10 6/uL 06/10/2020 5:[address] [facility] Hemoglobin 11.0(L) 12.0 - 15.5 g/dL 06/10/2020 5:[address] [facility] Hematocrit 32.9(L) 35.0 - 45.0 % 06/10/2020 5:[address] [facility] MCV 91.9 81.0 - 97.0 fL 06/10/2020 5:[address] [facility] MCH 30.7 28.0 - 34.0 pg 06/10/2020 5:[address] [facility] MCHC 33.4 32.0 - 36.0 g/dL 06/10/2020 5:[address] [facility] Platelet Count 123(L) 150 - 400 10 3/uL 06/10/2020 5:[address] [facility] Comment:Confirmed by repeat analysis. RDW-SD 43.2 36.0 - 50.0 fL 06/10/2020 5:[address] [facility] RDW-CV 12.9 11.2 - 14.8 % 06/10/2020 5:[address] [facility] MPV 9.5 9.3 - 12.8 fL 06/10/2020 5:[address] [facility] nRBC Absolute 0.05(H) 0 10 3/uL 06/10/2020 5:[address] [facility] nRBC Auto 0.1(H) 0 /100 WBC 06/10/2020 5:[address] [facility] Blood BLOOD SPECIMEN / Unknown Venipuncture / Unknown 06/10/2020 5:01 PM PENETRATION TESTER 06/10/2020 5:16 PM [facility] - 06/10/2020 5:21 PM [facility] Zeferino Dunlap MD 06/14/2020 3:47 PM Cellular Therapy Collections Progress Note Ashley Hall 06/10/2020 Diagnosis: No diagnosis found. Protocol/Regimen: HPC Mobilization and Collection Interval History: 19 y.o. female healthy allo donor for her mother here for allogeneic hematopoietic progenitor collection #1. She reports mild tenderness around catheter insertion site. No F/C/N/V/D/JOINER/CP/SOB No Known Allergies Current Outpatient Medications Medication Sig Dispense Refill bacitracin ointment 28 g 3 multivitamin daily (THERAGRAN) tablet Take 1 Tab by mouth daily with food. mupirocin (BACTROBAN) 2 % ointment Apply to affected area 3 times daily sulfamethoxazole-trimethoprim (BACTRIM DS; SEPTRA DS) 800-160 MG tablet Take 1 tablet by mouth 2 times daily No current facility-administered medications for this encounter. Facility-Administered Medications Ordered in Other Encounters Medication Dose Route Frequency Provider Last Rate Last Admin acetaminophen (TYLENOL) tablet 650 mg 650 mg Oral q4h PRN FlorenceMeeta, BULKING MACHINE OPERATOR-EXTRACT MIXER calcium gluconate 5 g in 300 mL NS 5 g Intravenous PRN Florence, Meeta, BULKING MACHINE OPERATOR-EXTRACT MIXER 100 mL/hr at 06/10/20 1040 5 g at 06/10/20 1040 Physical Exam Constitutional: VS: T=99, P=105, WS=955/93, Os sat=99% RA General Appearance: No acute [...] URINE QUAL POCT NOTIFICATION Collection Time: 06/10/20 7:40 AM Result Value Ref Range Comment Notification Label Only - See Separate Report HCG URINE QUALITATIVE - POCT (IP) INTERFACED Collection Time: 06/10/20 7:42 AM Result Value Ref Range HCG Qual Urine Negative Negative PT-INR [facility] Collection Time: 06/10/20 7:56 AM Result Value Ref Range PT 13.6 12.1 - 14.8 Seconds INR 1.1 See Comment TYPE AND SCREEN Collection Time: 06/10/20 10:00 AM Result Value Ref Range Antibody Screen NEG ABO Rh A POS CALCIUM IONIZED WHOLE BLOOD Collection Time: 06/10/20 10:16 AM Result Value Ref Range Ionized Calcium Whole Blood 1.19 mmol/L Adjusted Ionized Calcium 1.16 (L) 1.19 - 1.34 mmol/L pH Whole Blood 7.35 7.35 - 7.45 CBC W AUTO DIFFERENTIAL Collection Time: 06/10/20 10:16 AM Result Value Ref Range WBC 41.6 (H) 3.5 - 10.5 10 3/uL RBC 3.81 (L) 3.90 - 5.00 10 6/uL Hemoglobin 11.8 (L) 12.0 - 15.5 g/dL Hematocrit 34.9 (L) 35.0 - 45.0 % MCV 91.6 81.0 - 97.0 fL MCH 31.0 28.0 - 34.0 pg MCHC 33.8 32.0 - 36.0 g/dL Platelet Count 241 150 - 400 10 3/uL RDW-SD 42.6 36.0 - 50.0 fL RDW-CV 12.9 11.2 - 14.8 % MPV 10.7 9.3 - 12.8 fL nRBC Absolute 0.04 (H) 0 10 3/uL nRBC Auto 0.1 (H) 0 /100 WBC FLOW CYTOMETRY CD34 COUNT BLOOD Collection Time: 06/10/20 10:16 AM Result Value Ref Range Reason for test Stem cell donor V59.02 Client Specimen ID # [id number] Number of Markers 2 Flow Cytometry Results Differential Result % Comment Total Viability 93.2 Lymph/[place] Region Surface Marker Results % Absolute Count (cell/uL) CD34 0.11 42.648 CD45 91.93 35,642.364 Flow Cytometry Interpretation Testing is technical only and does not require an interpretation of results. Disclaimer Test performed at [facility], [address] [place] [address], [id number]. This test was developed and its performance [...] perform high complexity clinical testing. Embedded Images DIFFERENTIAL MANUAL Collection Time: 06/10/20 10:16 AM Result Value Ref Range WBC (corrected for NRBC) 41.6 10 3/uL Total Cell Count 100 Neutrophils Absolute Manual 32.86 (H) 1.60 - 7.00 10 3/uL Lymphocyte Absolute 3.33 (H) 0.80 - 2.90 10 3/uL Monocytes Absolute 1.66 (H) 0.14 - 0.66 10 3/uL Eosinophils Absolute Manual 0.42 (H) 0.00 - 0.22 10 3/uL Band % Manual 25 (H) 0 - 10 % Neutrophil % Manual 54 30 - 60 % Lymphocyte % 8 (L) 20 - 45 % Monocytes % Manual 4 2 - 10 % Eosinophils % 1 1 - 6 % Metamyelocyte % Manual 6 (H) 0 % Myelocytes % Manual 2 (H) 0 % Platelet Estimate Adequate Adequate RBC Morphology Normal EKG 12-LEAD Collection Time: 06/10/20 2:14 PM Result Value Ref Range Ventricular Rate 122 BPM Atrial Rate 122 BPM P-R Interval 138 ms QRS Duration ms 84 ms Q-T Interval ms 330 ms QTC Calculation (Bezet) 470 ms Calculated P [place] 61 degrees Calculated R [place] 73 degrees Calculated T [place] 15 degrees Interpretation EKG SINUS TACHYCARDIA OTHERWISE NORMAL ECG NO PREVIOUS ECGS AVAILABLE CALCIUM IONIZED WHOLE BLOOD Collection Time: 06/10/20 5:01 PM Result Value Ref Range Ionized Calcium Whole Blood 1.16 mmol/L Adjusted Ionized Calcium 1.20 1.19 - 1.34 mmol/L pH Whole Blood 7.48 (H) 7.35 - 7.45 Procedures Leukapheresis Assessment and Plan Ashley Hall is a 19 year old female healthy related haplo donor who presents for peripheral blood hematopoietic progenitor collection #1. This is Day 5 of her Neupogen. Catheter placement was confirmed per IR note. No changes were noted in Donor History Questionnaire. Donor was stable going into collection. Pre collection Hct and Plt levels were acceptable. Post collection Hct=32.9, Lbx=712 . The donor experienced slowly increasing tachycardia during the collection. EKG was obtained pointing to sinus tachycardia. HR stabilized ~115. The goal for this procedure is 6 x 10e6 CD34 cells/kg. Processed volume during procedure was 20,231 mL. Yield of collection was 5.63h01s0 CD34/kg. Goal was reached per Dr Mendoza. Zeferino Dunlap MD, PhD Meeta Florence BULKING MACHINE OPERATOR-EXTRACT MIXER LAB - HEMATOLOGY ORDERABLES [facility] [address] [place] [address] [phone] * EKG 12-LEAD (06/10/2020 2:14 PM [facility]) Ventricular Rate 122 BPM [facility] MUSE Atrial Rate 122 BPM [facility] MUSE P-R Interval 138 ms [facility]USE QRS Duration ms 84 ms [facility] Q-T Interval ms 330 ms [facility] MUSE QTC Calculation (Bezet) 470 ms [facility] MUSE Calculated P [place] 61 degrees [facility] MUSE Calculated R [place] 73 degrees [facility] MUSE Calculated T [place] 15 degrees [facility] MUSE Interpretation EKG SINUS TACHYCARDIA OTHERWISE NORMAL ECG NO PREVIOUS ECGS AVAILABLE Confirmed by fellow Carol Hurst ([id number]) on 06/11/2020 2:17:16 PM Confirmed by Kenny Parkinson ([id number]) on 06/16/2020 12:22:17 PM [facility] MUSE 06/10/2020 2:14 PM PENETRATION TESTER 06/16/2020 12:22 PM [facility] Meeta Henriquez BULKING MACHINE OPERATOR-EXTRACT MIXER ECG ORDERABLES [facility] MUSE * FLOW CYTOMETRY CD34 COUNT BLOOD (06/10/2020 10:16 AM [facility]) Pathologist [facility] Reason for test Stem cell donor V59.02 06/10/2020 12:05 PM [facility] Client Specimen ID # [id number] 06/10/2020 12:05 PM [facility] Number of Markers 2 06/10/2020 12:05 PM [facility] Flow Cytometry Results Differential Result % Comment Total Viability 93.2 Lymph/[place]an Region Surface Marker Results % Absolute Count (cell/uL) CD34 0.11 42.648 CD45 91.93 35,642.364 06/10/2020 12:05 PM [facility] PATH[facility] Flow Cytometry Interpretation Testing is technical only and does not require an interpretation of results. 06/10/2020 12:05 PM [facility] PATHOLOG[facility] LAB Disclaimer Test performed at [facility], [address] [place] [address], [id number]. This test was developed and its performance [...] high complexity clinical testing. 06/10/2020 12:05 PM [facility] PATH[facility] LAB Embedded Images 12:05 PM [facility] PATH[facility] LAB Blood BLOOD SPECIMEN / Unknown Venipuncture / Unknown 06/10/2020 10:16 AM PENETRATION TESTER 06/10/2020 10:33 AM [facility] PATHOLOGY LAB - 06/10/2020 5:21 PM Zeferino Dunlap MD 06/14/2020 3:47 PM Cellular Therapy Collections Progress Note Ashley Hall 06/10/2020 Diagnosis: No diagnosis found. Protocol/Regimen: HPC Mobilization and Collection Interval History: 19 y.o. female healthy allo donor for her mother here for allogeneic hematopoietic progenitor collection #1. She reports mild tenderness around catheter insertion site. No F/C/N/V/D/JOINER/CP/SOB No Known Allergies Current Outpatient Medications Medication Sig Dispense Refill bacitracin ointment 28 g 3 multivitamin daily (THERAGRAN) tablet Take 1 Tab by mouth daily with food. mupirocin (BACTROBAN) 2 % ointment Apply to affected area 3 times daily sulfamethoxazole-trimethoprim (BACTRIM DS; SEPTRA DS) 800-160 MG tablet Take 1 tablet by mouth 2 times daily No current facility-administered medications for this encounter. Facility-Administered Medications Ordered in Other Encounters Medication Dose Route Frequency Provider Last Rate Last Admin acetaminophen (TYLENOL) tablet 650 mg 650 mg Oral q4h PRN Florence, Meeta, BULKING MACHINE OPERATOR-EXTRACT MIXER calcium gluconate 5 g in 300 mL NS 5 g Intravenous PRN Florence, Meeta, BULKING MACHINE OPERATOR-EXTRACT MIXER 100 mL/hr at 06/10/20 1040 5 g at 06/10/20 1040 Physical Exam Constitutional: VS: T=99, P=105, ZZ=339/93, Os sat=99% RA General Appearance: No acute [...] URINE QUAL POCT NOTIFICATION Collection Time: 06/10/20 7:40 AM Result Value Ref Range Comment Notification Label Only - See Separate Report HCG URINE QUALITATIVE - POCT (IP) INTERFACED Collection Time: 06/10/20 7:42 AM Result Value Ref Range HCG Qual Urine Negative Negative PT-INR [facility] Collection Time: 06/10/20 7:56 AM Result Value Ref Range PT 13.6 12.1 - 14.8 Seconds INR 1.1 See Comment TYPE AND SCREEN Collection Time: 06/10/20 10:00 AM Result Value Ref Range Antibody Screen NEG ABO Rh A POS CALCIUM IONIZED WHOLE BLOOD Collection Time: 06/10/20 10:16 AM Result Value Ref Range Ionized Calcium Whole Blood 1.19 mmol/L Adjusted Ionized Calcium 1.16 (L) 1.19 - 1.34 mmol/L pH Whole Blood 7.35 7.35 - 7.45 CBC W AUTO DIFFERENTIAL Collection Time: 06/10/20 10:16 AM Result Value Ref Range WBC 41.6 (H) 3.5 - 10.5 10 3/uL RBC 3.81 (L) 3.90 - 5.00 10 6/uL Hemoglobin 11.8 (L) 12.0 - 15.5 g/dL Hematocrit 34.9 (L) 35.0 - 45.0 % MCV 91.6 81.0 - 97.0 fL MCH 31.0 28.0 - 34.0 pg MCHC 33.8 32.0 - 36.0 g/dL Platelet Count 241 150 - 400 10 3/uL RDW-SD 42.6 36.0 - 50.0 fL RDW-CV 12.9 11.2 - 14.8 % MPV 10.7 9.3 - 12.8 fL nRBC Absolute 0.04 (H) 0 10 3/uL nRBC Auto 0.1 (H) 0 /100 WBC FLOW CYTOMETRY CD34 COUNT BLOOD Collection Time: 06/10/20 10:16 AM Result Value Ref Range Reason for test Stem cell donor V59.02 Client Specimen ID # [id number] Number of Markers 2 Flow Cytometry Results Differential Result % Comment Total Viability 93.2 Lymph/[place] Region Surface Marker Results % Absolute Count (cell/uL) CD34 0.11 42.648 CD45 91.93 35,642.364 Flow Cytometry Interpretation Testing is technical only and does not require an interpretation of results. Disclaimer Test performed at [facility], [address] [place] [address], [id number]. This test was developed and its performance [...] perform high complexity clinical testing. Embedded Images DIFFERENTIAL MANUAL Collection Time: 06/10/20 10:16 AM Result Value Ref Range WBC (corrected for NRBC) 41.6 10 3/uL Total Cell Count 100 Neutrophils Absolute Manual 32.86 (H) 1.60 - 7.00 10 3/uL Lymphocyte Absolute 3.33 (H) 0.80 - 2.90 10 3/uL Monocytes Absolute 1.66 (H) 0.14 - 0.66 10 3/uL Eosinophils Absolute Manual 0.42 (H) 0.00 - 0.22 10 3/uL Band % Manual 25 (H) 0 - 10 % Neutrophil % Manual 54 30 - 60 % Lymphocyte % 8 (L) 20 - 45 % Monocytes % Manual 4 2 - 10 % Eosinophils % 1 1 - 6 % Metamyelocyte % Manual 6 (H) 0 % Myelocytes % Manual 2 (H) 0 % Platelet Estimate Adequate Adequate RBC Morphology Normal EKG 12-LEAD Collection Time: 06/10/20 2:14 PM Result Value Ref Range Ventricular Rate 122 BPM Atrial Rate 122 BPM P-R Interval 138 ms QRS Duration ms 84 ms Q-T Interval ms 330 ms QTC Calculation (Bezet) 470 ms Calculated P [place] 61 degrees Calculated R [place] 73 degrees Calculated T [place] 15 degrees Interpretation EKG SINUS TACHYCARDIA OTHERWISE NORMAL ECG NO PREVIOUS ECGS AVAILABLE CALCIUM IONIZED WHOLE BLOOD Collection Time: 06/10/20 5:01 PM Result Value Ref Range Ionized Calcium Whole Blood 1.16 mmol/L Adjusted Ionized Calcium 1.20 1.19 - 1.34 mmol/L pH Whole Blood 7.48 (H) 7.35 - 7.45 Procedures Leukapheresis Assessment and Plan Ashley Hall is a 19 year old female healthy related haplo donor who presents for peripheral blood hematopoietic progenitor collection #1. This is Day 5 of her Neupogen. Catheter placement was confirmed per IR note. No changes were noted in Donor History Questionnaire. Donor was stable going into collection. Pre collection Hct and Plt levels were acceptable. Post collection Hct=32.9, Lbd=344 . The donor experienced slowly increasing tachycardia during the collection. EKG was obtained pointing to sinus tachycardia. HR stabilized ~115. The goal for this procedure is 6 x 10e6 CD34 cells/kg. Processed volume during procedure was 20,231 mL. Yield of collection was 5.33v61z9 CD34/kg. Goal was reached per Dr Mendoza. Zeferino Dunlap MD, PhD Meeta Henriquez BULKING MACHINE OPERATOR-EXTRACT MIXER LAB - PATHOLOGY/C YTOLOGY ORDERABLES Performing Organization Address [facility]/State/[facility] Co de Phone Number [facility] PATHOLOGY LAB [address] [phone] * TYPE AND SCREEN (06/10/2020 10:00 AM PENETRATION TESTER) Only the most recent of3 resultswithin the time period is included. Antibody Screen NEG 11:44 AM [facility] BLOOD BANK LAB ABO Rh A POS 06/10/2020 11:44 AM [facility] BLOOD BANK LAB Blood Bank BLOOD SPECIMEN / Unknown Venipuncture / Unknown 06/10/2020 10:00 AM PENETRATION TESTER 06/10/2020 10:45 AM PENETRATION TESTER Narrative [facility] BLOOD BANK LAB - 06/10/2020 5:21 PM Zeferino Dunlap MD 06/14/2020 3:47 PM Cellular Therapy Collections Progress Note Ashley Hall 06/10/2020 Diagnosis: No diagnosis found. Protocol/Regimen: HPC Mobilization and Collection Interval History: 19 y.o. female healthy allo donor for her mother here for allogeneic hematopoietic progenitor collection #1. She reports mild tenderness around catheter insertion site. No F/C/N/V/D/JOINER/CP/SOB No Known Allergies Current Outpatient Medications Medication Sig Dispense Refill bacitracin ointment 28 g 3 multivitamin daily (THERAGRAN) tablet Take 1 Tab by mouth daily with food. mupirocin (BACTROBAN) 2 % ointment Apply to affected area 3 times daily sulfamethoxazole-trimethoprim (BACTRIM DS; SEPTRA DS) 800-160 MG tablet Take 1 tablet by mouth 2 times daily No current facility-administered medications for this encounter. Facility-Administered Medications Ordered in Other Encounters Medication Dose Route Frequency Provider Last Rate Last Admin acetaminophen (TYLENOL) tablet 650 mg 650 mg Oral q4h PRN Florence, Meeta, BULKING MACHINE OPERATOR-EXTRACT MIXER calcium gluconate 5 g in 300 mL NS 5 g Intravenous PRN Florence, Meeta, BULKING MACHINE OPERATOR-EXTRACT MIXER 100 mL/hr at 06/10/20 1040 5 g at 06/10/20 1040 Physical Exam Constitutional: VS: T=99, P=105, KT=691/93, Os sat=99% RA General Appearance: No acute [...] URINE QUAL POCT NOTIFICATION Collection Time: 06/10/20 7:40 AM Result Value Ref Range Comment Notification Label Only - See Separate Report HCG URINE QUALITATIVE - POCT (IP) INTERFACED Collection Time: 06/10/20 7:42 AM Result Value Ref Range HCG Qual Urine Negative Negative PT-INR [facility] Collection Time: 06/10/20 7:56 AM Result Value Ref Range PT 13.6 12.1 - 14.8 Seconds INR 1.1 See Comment TYPE AND SCREEN Collection Time: 06/10/20 10:00 AM Result Value Ref Range Antibody Screen NEG ABO Rh A POS CALCIUM IONIZED WHOLE BLOOD Collection Time: 06/10/20 10:16 AM Result Value Ref Range Ionized Calcium Whole Blood 1.19 mmol/L Adjusted Ionized Calcium 1.16 (L) 1.19 - 1.34 mmol/L pH Whole Blood 7.35 7.35 - 7.45 CBC W AUTO DIFFERENTIAL Collection Time: 06/10/20 10:16 AM Result Value Ref Range WBC 41.6 (H) 3.5 - 10.5 10 3/uL RBC 3.81 (L) 3.90 - 5.00 10 6/uL Hemoglobin 11.8 (L) 12.0 - 15.5 g/dL Hematocrit 34.9 (L) 35.0 - 45.0 % MCV 91.6 81.0 - 97.0 fL MCH 31.0 28.0 - 34.0 pg MCHC 33.8 32.0 - 36.0 g/dL Platelet Count 241 150 - 400 10 3/uL RDW-SD 42.6 36.0 - 50.0 fL RDW-CV 12.9 11.2 - 14.8 % MPV 10.7 9.3 - 12.8 fL nRBC Absolute 0.04 (H) 0 10 3/uL nRBC Auto 0.1 (H) 0 /100 WBC FLOW CYTOMETRY CD34 COUNT BLOOD Collection Time: 06/10/20 10:16 AM Result Value Ref Range Reason for test Stem cell donor V59.02 Client Specimen ID # [id number] Number of Markers 2 Flow Cytometry Results Differential Result % Comment Total Viability 93.2 Lymph/[place]an Region Surface Marker Results % Absolute Count (cell/uL) CD34 0.11 42.648 CD45 91.93 35,642.364 Flow Cytometry Interpretation Testing is technical only and does not require an interpretation of results. Disclaimer Test performed at [facility], [address] [place] [address], [id number]. This test was developed and its performance [...] perform high complexity clinical testing. Embedded Images DIFFERENTIAL MANUAL Collection Time: 06/10/20 10:16 AM Result Value Ref Range WBC (corrected for NRBC) 41.6 10 3/uL Total Cell Count 100 Neutrophils Absolute Manual 32.86 (H) 1.60 - 7.00 10 3/uL Lymphocyte Absolute 3.33 (H) 0.80 - 2.90 10 3/uL Monocytes Absolute 1.66 (H) 0.14 - 0.66 10 3/uL Eosinophils Absolute Manual 0.42 (H) 0.00 - 0.22 10 3/uL Band % Manual 25 (H) 0 - 10 % Neutrophil % Manual 54 30 - 60 % Lymphocyte % 8 (L) 20 - 45 % Monocytes % Manual 4 2 - 10 % Eosinophils % 1 1 - 6 % Metamyelocyte % Manual 6 (H) 0 % Myelocytes % Manual 2 (H) 0 % Platelet Estimate Adequate Adequate RBC Morphology Normal EKG 12-LEAD Collection Time: 06/10/20 2:14 PM Result Value Ref Range Ventricular Rate 122 BPM Atrial Rate 122 BPM P-R Interval 138 ms QRS Duration ms 84 ms Q-T Interval ms 330 ms QTC Calculation (Bezet) 470 ms Calculated P [place] 61 degrees Calculated R [place] 73 degrees Calculated T [place] 15 degrees Interpretation EKG SINUS TACHYCARDIA OTHERWISE NORMAL ECG NO PREVIOUS ECGS AVAILABLE CALCIUM IONIZED WHOLE BLOOD Collection Time: 06/10/20 5:01 PM Result Value Ref Range Ionized Calcium Whole Blood 1.16 mmol/L Adjusted Ionized Calcium 1.20 1.19 - 1.34 mmol/L pH Whole Blood 7.48 (H) 7.35 - 7.45 Procedures Leukapheresis Assessment and Plan Ashley Hall is a 19 year old female healthy related haplo donor who presents for peripheral blood hematopoietic progenitor collection #1. This is Day 5 of her Neupogen. Catheter placement was confirmed per IR note. No changes were noted in Donor History Questionnaire. Donor was stable going into collection. Pre collection Hct and Plt levels were acceptable. Post collection Hct=32.9, Zyx=071 . The donor experienced slowly increasing tachycardia during the collection. EKG was obtained pointing to sinus tachycardia. HR stabilized ~115. The goal for this procedure is 6 x 10e6 CD34 cells/kg. Processed volume during procedure was 20,231 mL. Yield of collection was 5.76k45w8 CD34/kg. Goal was reached per Dr Mendoza. Zeferino Dunlap MD, PhD Meeta Henriquez BULKING MACHINE OPERATOR-EXTRACT MIXER LAB - BLOOD BANK ORDERABLES [facility] B[facility]OD [facility] [address] [place] [address], [facility] [phone] * IR CENTRAL LINE INSERT NON TUNNEL (06/10/2020 8:28 AM PENETRATION TESTER) Anatomical Region Laterality Modality Chest, Upper Extremity X-Ray Ang iography 06/10/2020 2:01 PM PENETRATION TESTER Impressions 06/10/2020 2:16 PM PENETRATION TESTER Impression: Successful placement of a triple lumen 13.5 [place] x 15 cm nontunneled pheresis catheter through the right internal jugular vein under ultrasound and fluoroscopic guidance. I, Quan Paredes, was present and performed/supervised the entire procedure. This report was electronically signed by QUAN PAREDES on 06/10/2020 2:16 PM . Narrative 06/10/2020 2:16 PM PENETRATION TESTER History: 19-year-old female presenting for nontunneled pheresis catheter placement for stem cell donation. Operators: 1.Dr. Paredes, Attending Physician Anesthesia: 1.Local anesthesia - 10 mL of 1% lidocaine 2.Intravenous analgesia - Fentanyl 25 mcg 3.Additional medication - 50 mg Benadryl Procedure: 1.Ultrasound-guided access of the right internal jugular vein. 2.Fluoroscopy-guided placement of a triple lumen 13.5 [place] x 15 cm nontunneled catheter through the [...] After a series of dilatations, a 13.5 [place] by 15 cm dialysis catheter was advanced [...] placement for stem cell donation. Operators: 1.Dr. Paredse, Attending Physician Anesthesia: 1.Local anesthesia - 10 mL of 1% lidocaine 2.Intravenous analgesia - Fentanyl 25 mcg 3.Additional medication - 50 mg Benadryl Procedure: 1.Ultrasound-guided access of the right internal jugular vein. 2.Fluoroscopy-guided placement of a triple lumen 13.5 [place] x 15 cm nontunneled catheter through the [...] After a series of dilatations, a 13.5 [place] by 15 cm dialysis catheter was advanced [...] Successful placement of a triple lumen 13.5 [place] x 15 cm nontunneled pheresis catheter through the right internal jugular vein under ultrasound and fluoroscopic guidance. I, Quan Paredes, was present and performed/supervised the entireprocedure. This report was electronically signed by QUAN PAREDES on 06/10/2020 2:16 PM. Meeta Henriquez BULKING MACHINE OPERATOR-EXTRACT MIXER IR ORDERABLES * PT-INR [facility] (06/10/2020 7:56 AM PENETRATION TESTER) Only the most recent of2 resultswithin the time period is included. PT 13.6 12.1 - 14.8 Seconds 06/10/2020 8:[address] [facility] INR 1.1 See Comment 06/10/2020 8:[address] [facility] Comment:The suggested therap eutic range for standard coumadin (warfarin) therapy is an INR of 2.0-3.0. For high-risk patients (Mechanical Mitral Valve Prosthesis, etc.), the suggested prophylactic therapeutic range is an INR of 2.5-3.5. Blood BLOOD SPECIMEN / Unknown Venipuncture / Unknown 06/10/2020 7:56 AM PENETRATION TESTER 06/10/2020 8:09 AM [facility] - 06/10/2020 5:21 PM PENETRATION TESTER Zeferino Dunlap MD 06/14/2020 3:47 PM Cellular Therapy Collections Progress Note Ashley Hall 06/10/2020 Diagnosis: No diagnosis found. Protocol/Regimen: HPC Mobilization and Collection Interval History: 19 y.o. female healthy allo donor for her mother here for allogeneic hematopoietic progenitor collection #1. She reports mild tenderness around catheter insertion site. No F/C/N/V/D/JOINER/CP/SOB No Known Allergies Current Outpatient Medications Medication Sig Dispense Refill bacitracin ointment 28 g 3 multivitamin daily (THERAGRAN) tablet Take 1 Tab by mouth daily with food. mupirocin (BACTROBAN) 2 % ointment Apply to affected area 3 times daily sulfamethoxazole-trimethoprim (BACTRIM DS; SEPTRA DS) 800-160 MG tablet Take 1 tablet by mouth 2 times daily No current facility-administered medications for this encounter. Facility-Administered Medications Ordered in Other Encounters Medication Dose Route Frequency Provider Last Rate Last Admin acetaminophen (TYLENOL) tablet 650 mg 650 mg Oral q4h PRN Florence, Meeta, BULKING MACHINE OPERATOR-EXTRACT MIXER calcium gluconate 5 g in 300 mL NS 5 g Intravenous PRN Florence, Meeta, BULKING MACHINE OPERATOR-EXTRACT MIXER 100 mL/hr at 06/10/20 1040 5 g at 06/10/20 1040 Physical Exam Constitutional: VS: T=99, P=105, GV=314/93, Os sat=99% RA General Appearance: No acute [...] URINE QUAL POCT NOTIFICATION Collection Time: 06/10/20 7:40 AM Result Value Ref Range Comment Notification Label Only - See Separate Report HCG URINE QUALITATIVE - POCT (IP) INTERFACED Collection Time: 06/10/20 7:42 AM Result Value Ref Range HCG Qual Urine Negative Negative PT-INR [facility] Collection Time: 06/10/20 7:56 AM Result Value Ref Range PT 13.6 12.1 - 14.8 Seconds INR 1.1 See Comment TYPE AND SCREEN Collection Time: 06/10/20 10:00 AM Result Value Ref Range Antibody Screen NEG ABO Rh A POS CALCIUM IONIZED WHOLE BLOOD Collection Time: 06/10/20 10:16 AM Result Value Ref Range Ionized Calcium Whole Blood 1.19 mmol/L Adjusted Ionized Calcium 1.16 (L) 1.19 - 1.34 mmol/L pH Whole Blood 7.35 7.35 - 7.45 CBC W AUTO DIFFERENTIAL Collection Time: 06/10/20 10:16 AM Result Value Ref Range WBC 41.6 (H) 3.5 - 10.5 10 3/uL RBC 3.81 (L) 3.90 - 5.00 10 6/uL Hemoglobin 11.8 (L) 12.0 - 15.5 g/dL Hematocrit 34.9 (L) 35.0 - 45.0 % MCV 91.6 81.0 - 97.0 fL MCH 31.0 28.0 - 34.0 pg MCHC 33.8 32.0 - 36.0 g/dL Platelet Count 241 150 - 400 10 3/uL RDW-SD 42.6 36.0 - 50.0 fL RDW-CV 12.9 11.2 - 14.8 % MPV 10.7 9.3 - 12.8 fL nRBC Absolute 0.04 (H) 0 10 3/uL nRBC Auto 0.1 (H) 0 /100 WBC FLOW CYTOMETRY CD34 COUNT BLOOD Collection Time: 06/10/20 10:16 AM Result Value Ref Range Reason for test Stem cell donor V59.02 Client Specimen ID # [id number] Number of Markers 2 Flow Cytometry Results Differential Result % Comment Total Viability 93.2 Lymph/[place] Region Surface Marker Results % Absolute Count (cell/uL) CD34 0.11 42.648 CD45 91.93 35,642.364 Flow Cytometry Interpretation Testing is technical only and does not require an interpretation of results. Disclaimer Test performed at [facility], [address] [place] [address], [id number]. This test was developed and its performance [...] perform high complexity clinical testing. Embedded Images DIFFERENTIAL MANUAL Collection Time: 06/10/20 10:16 AM Result Value Ref Range WBC (corrected for NRBC) 41.6 10 3/uL Total Cell Count 100 Neutrophils Absolute Manual 32.86 (H) 1.60 - 7.00 10 3/uL Lymphocyte Absolute 3.33 (H) 0.80 - 2.90 10 3/uL Monocytes Absolute 1.66 (H) 0.14 - 0.66 10 3/uL Eosinophils Absolute Manual 0.42 (H) 0.00 - 0.22 10 3/uL Band % Manual 25 (H) 0 - 10 % Neutrophil % Manual 54 30 - 60 % Lymphocyte % 8 (L) 20 - 45 % Monocytes % Manual 4 2 - 10 % Eosinophils % 1 1 - 6 % Metamyelocyte % Manual 6 (H) 0 % Myelocytes % Manual 2 (H) 0 % Platelet Estimate Adequate Adequate RBC Morphology Normal EKG 12-LEAD Collection Time: 06/10/20 2:14 PM Result Value Ref Range Ventricular Rate 122 BPM Atrial Rate 122 BPM P-R Interval 138 ms QRS Duration ms 84 ms Q-T Interval ms 330 ms QTC Calculation (Bezet) 470 ms Calculated P [place] 61 degrees Calculated R [place] 73 degrees Calculated T [place] 15 degrees Interpretation EKG SINUS TACHYCARDIA OTHERWISE NORMAL ECG NO PREVIOUS ECGS AVAILABLE CALCIUM IONIZED WHOLE BLOOD Collection Time: 06/10/20 5:01 PM Result Value Ref Range Ionized Calcium Whole Blood 1.16 mmol/L Adjusted Ionized Calcium 1.20 1.19 - 1.34 mmol/L pH Whole Blood 7.48 (H) 7.35 - 7.45 Procedures Leukapheresis Assessment and Plan Ashley Hall is a 19 year old female healthy related haplo donor who presents for peripheral blood hematopoietic progenitor collection #1. This is Day 5 of her Neupogen. Catheter placement was confirmed per IR note. No changes were noted in Donor History Questionnaire. Donor was stable going into collection. Pre collection Hct and Plt levels were acceptable. Post collection Hct=32.9, Hih=288 . The donor experienced slowly increasing tachycardia during the collection. EKG was obtained pointing to sinus tachycardia. HR stabilized ~115. The goal for this procedure is 6 x 10e6 CD34 cells/kg. Processed volume during procedure was 20,231 mL. Yield of collection was 5.85z20h5 CD34/kg. Goal was reached per Dr Mendoza. Zeferino Dunlap MD, PhD Quan Paredes MD LAB - COAGULATION OR DERABLES Performing Organization Address City/[facility]/ZIP Co de Phone Number [address] [address], [facility] [phone] * HCG URINE QUALITATIVE - POCT (IP) INTERFACED (06/10/2020 7:42 AM PENETRATION TESTER) HCG Qual Urine Negative Negative 06/10/2020 7:49 AM PENETRATION TESTER [facility] Urine URINE / Unknown 06/10/2020 7 :42 AM PENETRATION TESTER 06/10/2020 7:49 AM PENETRATION TESTER Meeta Henriquez APRN-EXTRACT MIXER LAB - POINT OF CA RE ORDERABLES Performing Organization Address City/[facility]/ZIP Co de Phone Number [address] [address], [facility] [phone] * HCG URINE QUAL POCT NOTIFICATION (06/10/2020 7:40 AM PENETRATION TESTER) Comment Notification Label Only - See Separate Report 06/10/2020 9:00 AM PENETRATION TESTER [facility] Urine URINE / Unknown 06/10/2020 7 :40 AM PENETRATION TESTER 06/10/2020 7:40 AM PENETRATION TESTER Narrative [facility] - 06/10/2020 5:21 PM PENETRATION TESTER Zeferino Dunlap MD 06/14/2020 3:47 PM Cellular Therapy Collections Progress Note Ashley Hall 06/10/2020 Diagnosis: No diagnosis found. Protocol/Regimen: HPC Mobilization and Collection Interval History: 19 y.o. female healthy allo donor for her mother here for allogeneic hematopoietic progenitor collection #1. She reports mild tenderness around catheter insertion site. No F/C/N/V/D/JOINER/CP/SOB No Known Allergies Current Outpatient Medications Medication Sig Dispense Refill bacitracin ointment 28 g 3 multivitamin daily (THERAGRAN) tablet Take 1 Tab by mouth daily with food. mupirocin (BACTROBAN) 2 % ointment Apply to affected area 3 times daily sulfamethoxazole-trimethoprim (BACTRIM DS; SEPTRA DS) 800-160 MG tablet Take 1 tablet by mouth 2 times daily No current facility-administered medications for this encounter. Facility-Administered Medications Ordered in Other Encounters Medication Dose Route Frequency Provider Last Rate Last Admin acetaminophen (TYLENOL) tablet 650 mg 650 mg Oral q4h PRN FlorenceMeeta, BULKING MACHINE OPERATOR-EXTRACT MIXER calcium gluconate 5 g in 300 mL NS 5 g Intravenous PRN Florence, Meeta, BULKING MACHINE OPERATOR-EXTRACT MIXER 100 mL/hr at 06/10/20 1040 5 g at 06/10/20 1040 Physical Exam Constitutional: VS: T=99, P=105, XL=951/93, Os sat=99% RA General Appearance: No acute [...] URINE QUAL POCT NOTIFICATION Collection Time: 06/10/20 7:40 AM Result Value Ref Range Comment Notification Label Only - See Separate Report HCG URINE QUALITATIVE - POCT (IP) INTERFACED Collection Time: 06/10/20 7:42 AM Result Value Ref Range HCG Qual Urine Negative Negative PT-INR [facility] Collection Time: 06/10/20 7:56 AM Result Value Ref Range PT 13.6 12.1 - 14.8 Seconds INR 1.1 See Comment TYPE AND SCREEN Collection Time: 06/10/20 10:00 AM Result Value Ref Range Antibody Screen NEG ABO Rh A POS CALCIUM IONIZED WHOLE BLOOD Collection Time: 06/10/20 10:16 AM Result Value Ref Range Ionized Calcium Whole Blood 1.19 mmol/L Adjusted Ionized Calcium 1.16 (L) 1.19 - 1.34 mmol/L pH Whole Blood 7.35 7.35 - 7.45 CBC W AUTO DIFFERENTIAL Collection Time: 06/10/20 10:16 AM Result Value Ref Range WBC 41.6 (H) 3.5 - 10.5 10 3/uL RBC 3.81 (L) 3.90 - 5.00 10 6/uL Hemoglobin 11.8 (L) 12.0 - 15.5 g/dL Hematocrit 34.9 (L) 35.0 - 45.0 % MCV 91.6 81.0 - 97.0 fL MCH 31.0 28.0 - 34.0 pg MCHC 33.8 32.0 - 36.0 g/dL Platelet Count 241 150 - 400 10 3/uL RDW-SD 42.6 36.0 - 50.0 fL RDW-CV 12.9 11.2 - 14.8 % MPV 10.7 9.3 - 12.8 fL nRBC Absolute 0.04 (H) 0 10 3/uL nRBC Auto 0.1 (H) 0 /100 WBC FLOW CYTOMETRY CD34 COUNT BLOOD Collection Time: 06/10/20 10:16 AM Result Value Ref Range Reason for test Stem cell donor V59.02 Client Specimen ID # [id number] Number of Markers 2 Flow Cytometry Results Differential Result % Comment Total Viability 93.2 Lymph/[place] Surface Marker Results % Absolute Count (cell/uL) CD34 0.11 42.648 CD45 91.93 35,642.364 Flow Cytometry Interpretation Testing is technical only and does not require an interpretation of results. Disclaimer Test performed at [facility], [address] [place] [address], [id number]. This test was developed and its performance [...] perform high complexity clinical testing. Embedded Images DIFFERENTIAL MANUAL Collection Time: 06/10/20 10:16 AM Result Value Ref Range WBC (corrected for NRBC) 41.6 10 3/uL Total Cell Count 100 Neutrophils Absolute Manual 32.86 (H) 1.60 - 7.00 10 3/uL Lymphocyte Absolute 3.33 (H) 0.80 - 2.90 10 3/uL Monocytes Absolute 1.66 (H) 0.14 - 0.66 10 3/uL Eosinophils Absolute Manual 0.42 (H) 0.00 - 0.22 10 3/uL Band % Manual 25 (H) 0 - 10 % Neutrophil % Manual 54 30 - 60 % Lymphocyte % 8 (L) 20 - 45 % Monocytes % Manual 4 2 - 10 % Eosinophils % 1 1 - 6 % Metamyelocyte % Manual 6 (H) 0 % Myelocytes % Manual 2 (H) 0 % Platelet Estimate Adequate Adequate RBC Morphology Normal EKG 12-LEAD Collection Time: 06/10/20 2:14 PM Result Value Ref Range Ventricular Rate 122 BPM Atrial Rate 122 BPM P-R Interval 138 ms QRS Duration ms 84 ms Q-T Interval ms 330 ms QTC Calculation (Bezet) 470 ms Calculated P [place] 61 degrees Calculated R [place] 73 degrees Calculated T [place] 15 degrees Interpretation EKG SINUS TACHYCARDIA OTHERWISE NORMAL ECG NO PREVIOUS ECGS AVAILABLE CALCIUM IONIZED WHOLE BLOOD Collection Time: 06/10/20 5:01 PM Result Value Ref Range Ionized Calcium Whole Blood 1.16 mmol/L Adjusted Ionized Calcium 1.20 1.19 - 1.34 mmol/L pH Whole Blood 7.48 (H) 7.35 - 7.45 Procedures Leukapheresis Assessment and Plan Ashley Hall is a 19 year old female healthy related haplo donor who presents for peripheral blood hematopoietic progenitor collection #1. This is Day 5 of her Neupogen. Catheter placement was confirmed per IR note. No changes were noted in Donor History Questionnaire. Donor was stable going into collection. Pre collection Hct and Plt levels were acceptable. Post collection Hct=32.9, Mti=862 . The donor experienced slowly increasing tachycardia during the collection. EKG was obtained pointing to sinus tachycardia. HR stabilized ~115. The goal for this procedure is 6 x 10e6 CD34 cells/kg. Processed volume during procedure was 20,231 mL. Yield of collection was 5.20s07n2 CD34/kg. Goal was reached per Dr Mendoza. Zeferino Dunlap MD, PhD Meeta Henriquez BULKING MACHINE OPERATOR-EXTRACT MIXER LAB - URINALYSIS ORDERABLES [address] [address], [facility] [phone] * URINALYSIS REFLEX TO MICROSCOPIC NO CULTURE (06/07/2020 12:33 PM PENETRATION TESTER) Color UA Straw Straw, Yellow, Colorless 06/07/2020 1:[address] [facility] Clarity UA Clear Clear, Slt Cloudy 06/07/2020 1:[address] [facility] Specific [place] UA 1.008 1.005 - 1.030 06/07/2020 1:[address] [facility] pH UA 6.0 5.0 - 8.0 pH 06/07/2020 1:[address] [facility] Protein UA Negative Negative mg/dL 06/07/2020 1:[address] [facility] Glucose UA Negative Negative mg/dL 06/07/2020 1:[address] [facility] Ketone UA Negative Negative mg/dL 06/07/2020 1:[address] [facility] Bilirubin UA Negative Negative mg/dL 06/07/2020 1:[address] [facility] Blood UA Negative Negative 06/07/2020 1:[address] [facility] Nitrite UA Negative Negative 06/07/2020 1:[address] [facility] Leukocyte Esterase Negative Negative 06/07/2020 1:[address] [facility] Urobilinogen UA Negative Negative mg/dL 06/07/2020 1:[address] [facility] RBC UA 3-5 None Seen, 0-2, 3-5 /HPF 06/07/2020 1:[address] [facility] WBC UA 0-5 None Seen, 0-5 /HPF 06/07/2020 1:[address] [facility] Bacteria UA Trace None, Trace /HPF 06/07/2020 1:[address] [facility] Squamous Epithelial Cells UA 0-2 None Seen, 0-2 /HPF 06/07/2020 1:[address] [facility] Mucus UA 1+ None, 1+ /LPF 06/07/2020 1:[address] [facility] Urine URINE SPECIMEN OBTAINED BY CLEAN CATCH PROCEDURE / Unknown Collection / Unknown 06/07/2020 12:33 PM PENETRATION TESTER 06/07/2020 12:51 PM [facility] - 06/07/2020 1:28 PM PENETRATION TESTER Debbie Patel BULKING MACHINE OPERATOR-EXTRACT MIXER LAB - URINALYSIS O RDERABLES [facility] [address] [facility] [place] [address], [facility] [phone] * CULTURE URINE (06/07/2020 12:33 PM PENETRATION TESTER) Only the most recent of2 resultswithin the time period is included. Culture Urine <10,000 CFU/mL urogenital mark JESSEE 06/09/2020 7:[address] [facility] Urine URINE SPECIMEN OBTAINED BY CLEAN CATCH PROCEDURE / Unknown Collection / Unknown 06/07/2020 12:33 PM PENETRATION TESTER 06/07/2020 1:09 PM PENETRATION TESTER Debbie Patel BULKING MACHINE OPERATOR-EXTRACT MIXER LAB - MICROBIOLOGY ORDERABLES [facility] [address] [place] [address], [facility] [phone] * SARS-COV-2 (COVID-19) PRE-SURGICAL/PROCEDURE (06/04/2020 10:50 AM PENETRATION TESTER) COVID-19 PCR Not detected Not detected 06/04/2020 5:[address] [facility] Microbiology SPECIMEN FROM NASOPHARYNGEAL STRUCTURE / Unknown Collection / Unknown 06/04/2020 10:50 AM PENETRATION TESTER 06/04/2020 11:36 AM PENETRATION TESTER Narrative [facility] - 06/04/2020 5:03 PM PENETRATION TESTER This nucleic acid amplification assay performance was validated by [facility]. This test has been authorized by the Food and Drug administration (FDA)under an Emergency Use Authorization (EUA). This test has been validated [...] EUA assay are available upon request. Meeta Fofanaradha [facility] - MI[facility]OLOG Y ORDERABLES [facility] [address] [place] [address], [facility] [phone] * HCG URINE QUALITATIVE (06/04/2020 10:50 AM PENETRATION TESTER) [facility] Test Urine Negative Negative 06/04/2020 11:45 AM PENETRATION TESTER [facility] Urine URINE / Unknown Collection / Unknown 06/04/2020 10:50 AM PENETRATION TESTER 06/04/2020 11:33 AM PENETRATION TESTER Meetaalejo Fofanaradha [facility] - URINALYSIS ORDERABLES Performing Organization Address [facility] Co de Phone Number [facility] [address] [place] [address], [place] [phone] * QUANTIFERON-TB GOLD PLUS 4-TUBE (05/26/2020 1:00 PM PENETRATION TESTER) [facility] QuantiFERON NIL 0.02 IU/mL 0 11:53 PM PENETRATION TESTER [employer] ([facility]) Comment: Performed By: [facility] [address] [place] [address] Medical Support Assistant: Maribell Fragoso MD QuantiFERON TB Gold Plus Negative Negative 05/28/2020 11:53 PM PENETRATION TESTER [employer] ([facility]) Comment: Interpretive Data: Quantiferon TB Gold Plus [...] Mycobacterium tuberculosis Infection --- [place], 2010 (http://www.cdc.gov/mmwr/preview/mmwrhtml/fr5917z7.htm), for more information concerning test performance in low-prevalence populations and use in occupational screening. QuantiFERON Plus TB1 Minus NIL 0.01 0.00 - 0.34 IU/mL 05/28/2020 11:53 PM PENETRATION TESTER [facility]) QuantiFERON Plus TB2 Minus NIL 0.01 0.00 - 0.34 IU/mL 05/28/2020 11:53 PM PENETRATION TESTER [facility]) QuantiFERON Mitogen Minus NIL 9.03 IU/mL 05/28/2020 11:53 PM PENETRATION TESTER [facility]) Blood BLOOD SPECIMEN / Unknown Venipuncture / Unknown 05/26/2020 1:00 PM PENETRATION TESTER 05/26/2020 1:17 PM PENETRATION TESTER Meeta Henriquez BULKING MACHINE OPERATOR-EXTRACT MIXER LAB - CHEMISTRY O RDERABLES [facility] [employer] [facility]) [address] [place] [address], [facility] * (ABNORMAL) URINALYSIS W/MICROSCOPIC NO CULTURE (05/21/2020 1:30 PM PENETRATION TESTER) Only the most recent of2 resultswithin the time period is included. Color UA Yellow Straw, Yellow, Colorless 05/21/2020 2:04 PM PENETRATION TESTER [facility] Clarity UA Clear Clear, Slt Cloudy 05/21/2020 2:04 PM PENETRATION TESTER [facility] Specific [place] UA 1.020 1.005 - 1.030 05/21/2020 2:04 PM PENETRATION TESTER [facility] pH UA 6.0 5.0 - 8.0 pH 05/21/2020 2:04 PM PENETRATION TESTER [facility] Protein UA Negative Negative mg/dL 05/21/2020 2:[address] [facility] Glucose UA Negative Negative mg/dL 05/21/2020 2:[address] [facility] Ketone UA Negative Negative mg/dL 05/21/2020 2:[address] [facility] Bilirubin UA Negative Negative mg/dL 05/21/2020 2:[address] [facility] Blood UA Negative Negative 05/21/2020 2:[address] [facility] Nitrite UA Negative Negative 05/21/2020 2:[address] [facility] Leukocyte Esterase 2+(A) Negative 05/21/2020 2:[address] [facility] Urobilinogen UA Negative Negative mg/dL 05/21/2020 2:[address] [facility] RBC UA 0-2 None Seen, 0-2, 3-5 /HPF 05/21/2020 2:[address] [facility] WBC UA 0-5 None Seen, 0-5 /HPF 05/21/2020 2:[address] [facility] Bacteria UA 1+(A) None, Trace /HPF 05/21/2020 2:[address] [facility] Squamous Epithelial Cells UA 3-5(A) None Seen, 0-2 /HPF 05/21/2020 2:[address] [facility] Mucus UA 1+ None, 1+ /LPF 05/21/2020 2:[address] [facility] Urine URINE SPECIMEN OBTAINED BY CLEAN CATCH PROCEDURE / Unknown Collection / Unknown 05/21/2020 1:30 PM PENETRATION TESTER 05/21/2020 1:45 PM PENETRATION TESTER [facility] - 05/21/2020 2:04 PM PENETRATION TESTER Meeta Henriquez BULKING MACHINE OPERATOR-EXTRACT MIXER LAB - URINALYSIS ORDERABLES [facility] [address] [place] [address], [facility] [phone] * HERPES SIMPLEX 1+2 PCR (05/21/2020 1:30 PM PENETRATION TESTER) Herpes Simplex Virus PCR Not Detected 05/26/2020 6:13 AM PENETRATION TESTER [facility] ([facility]) Comment: NOT DETECTED - A negative result does not rule out the presence of PCR inhibitors in the patient specimen or assay specific nucleic acid in concentrations below the level of detection by the assay. INTERPRETIVE INFORMATION: Herpes Simplex Virus by PCR Test developed and characteristics determined by [facility]. See Compliance Statement B: [employer]/ Performed by [employer], [address] [place] [address] [email or web address], Maribell Fragoso MD, Lab. Director Source Blood 05/26/2020 6:13 AM PENETRATION TESTER [employer] ([facility]) Blood BLOOD SPECIMEN / Unknown Venipuncture / Unknown 05/21/2020 1:30 PM PENETRATION TESTER 05/21/2020 2:30 PM PENETRATION TESTER Meeta Henriquez BULKING MACHINE OPERATOR-EXTRACT MIXER LAB - MICROBIOLOG Y ORDERABLES [employer] ([facility]) [address] * HLA TYPING LOW/HIGH RESOLUTION DPB1 (05/14/2020 4:10 PM PENETRATION TESTER) Only the most recent of2 resultswithin the time period is included. Typ DNA LR DPB1 [place] #1 *04 11/11/2020 10:20 [facility] Typ DNA LR DPB1 [place] #2 - 11/11/2020 10:20 AM [facility] Typ DNA HR DPB1 [place] #1 *04:01 11/11/2020 10:20 AM [facility] Typ DNA HR DPB1 [place] #2 - 11/11/2020 10:20 AM CDT [facility]) Test Methodology RTPCR/SSP 11/12/19 10:20 AM [facility] HLA Result Comment PREDICTED IMMUNOGENICI TY:PERMISSIV E 11/11/2020 10:20 AM [facility] Date Results Entered 05/19/2020 11/11/2020 10:20 AM [facility] Comment: This test was developed and its performance characteristics determined by the [facility]. It has not been cleared or approved by the U.S. Food and Drug Administration. The FDA has determined that such clearance or approval is not necessary. This test is used for clinical purposes. It should not be regarded as investigational or for research. This laboratory is certified under the Clinical Laboratory Improvement Amendments of 1988 (CLIA-88) as qualified to perform high complexity clinical laboratory testing. Performed at: [facility], [address] [place] [address] Recovery Unit Operator: Montana Siddiqui MD, Blood BLOOD SPECIMEN / Unknown Lab Venipuncture / Unknown 05/14/2020 4:10 PM PENETRATION TESTER 05/14/2020 4:10 PM PENETRATION TESTER Jhonny West MD LAB - BLOOD BANK O RDERABLES [facility] ([facility]) [address] [place] [address], [facility] * HLA TYPING DNA LOW RESOLUTION DR,DQ (05/14/2020 4:10 PM PENETRATION TESTER) Only the most recent of2 resultswithin the time period is included. DR DQ Low Resolution DRB1-1 *04 11/11/2020 10:19 AM CDT [facility]) DR DQ Low Resolution DRB1-2 - 11/11/2020 10:19 AM CDT [facility]) DR DQ Low Resolution DQB1-1 *03 11/11/2020 10:19 AM CDT [facility]) DR DQ Low Resolution DQB1-2 - 11/11/2020 10:19 AM CDT [facility]) DR DQ Low Resolution DRB3-1 Negative 11/11/2020 10:19 AM CDT [facility]) DR DQ Low Resolution DRB3-2 Negative 11/11/2020 10:19 AM CDT [facility]) DR DQ Low Resolution DRB4-1 *01 11/11/2020 10:19 AM CDT [facility]) DR DQ Low Resolution DRB4-2 Negative 11/11/2020 10:19 AM CDT [facility]) DR DQ Low Resolution DRB5-1 Negative 11/11/2020 10:19 AM CDT [facility]) DR DQ Low Resolution DRB5-2 Negative 11/11/2020 10:19 AM CDT [facility] ([facility]) DR DQ Low Resolution Methodology Real Time PCR 11/11/2020 10:19 AM T [facility]) Comment DR DQ Low Resolution - 11/11/2020 10:19 AM CDT [facility]) DR DQ Low Resolution test date 05/19/2020 11/11/2020 10:19 AM CDT [facility]) Comment: This test was developed and its performance characteristics determined by the [facility]. It has not been cleared or approved by the U.S. Food and Drug Administration. The FDA has determined that such clearance or approval is not necessary. This test is used for clinical purposes. It should not be regarded as investigational or for research. This laboratory is certified under the Clinical Laboratory Improvement Amendments of 1988 (CLIA-88) as qualified to perform high complexity clinical laboratory testing. CLIA ID# [id number] Performed at: [facility], [address] [place] [address] Recovery Unit Operator: Montana Siddiqui MD, Blood BLOOD SPECIMEN / Unknown Lab Venipuncture / Unknown 05/14/2020 4:10 PM PENETRATION TESTER 05/14/2020 4:10 PM PENETRATION TESTER Jhonny West MD LAB [facility] [address] [place] [address], [facility] * HLA TYPING DNA LOW RESOLUTION A,B,C (05/14/2020 4:10 PM PENETRATION TESTER) Only the most recent of2 resultswithin the time period is included. ABC DNA A1 *03 11/11/2020 10:19 AM CDT [facility]) ABC DNA A2 *31 11/11/2020 10:19 AM CDT [facility]) ABC DNA B1 *15 11/11/2020 10:19 AM CDT [facility]) ABC DNA B2 *27 11/11/2020 10:19 AM CDT [facility]) ABC DNA BW1 6 11/11/2020 10:19 AM CDT [facility] ABC DNA BW2 4 11/11/2020 10:19 AM CDT [facility] ABC DNA C1 *02 11/11/2020 10:19 AM CDT [facility] ABC DNA C2 *03 11/11/2020 10:19 AM CDT [facility] ABC DNA Methodology Real Time PCR 11/11/2020 10:19 AM CDT [facility]) Comment ABC DNA - 10:19 AM CDT [facility]) ABC DNA Test Date 0 11/11/2020 10:19 AM CDT [facility] Comment: This test was developed and its performance characteristics determined by the [facility]. It has not been cleared or approved by the U.S. Food and Drug Administration. The FDA has determined that such clearance or approval is not necessary. This test is used for clinical purposes. It should not be regarded as investigational or for research. This laboratory is certified under the Clinical Laboratory Improvement Amendments of 1988 (CLIA-88) as qualified to perform high complexity clinical laboratory testing. CLIA ID# [id number] Performed at: [facility], [address] [place] [address] Recovery Unit Operator: Montana Siddiqui MD, Blood BLOOD SPECIMEN / Unknown Lab Venipuncture / Unknown 05/14/2020 4:10 PM PENETRATION TESTER 05/14/2020 4:10 PM PENETRATION TESTER Jhonny West MD LAB - BLOOD BANK O RDERABLES [facility]) [address] [place] [address], [facility] * HLA TYPING DNA HIGH RESOLUTION DR (05/14/2020 4:10 PM PENETRATION TESTER) Only the most recent of2 resultswithin the time period is included. DR Locus DRB1-1 *04:01 1 10:19 AM [facility] ([facility]) DR DQ Low Resolution DRB1-2 - 11/11/2020 10:19 AM CDT [facility] ([facility]) DR Locus Test Method SSP 11/11/2020 10:19 AM [facility] ([facility]) Comment DR Locus - 11/12/19 21 10:19 AM CDT [facility] ([facility]) DR Locus Test Date 0 11/11/2020 10:19 AM [facility] ([facility]) Comment: This test was developed and its performance characteristics determined by the [facility]. It has not been cleared or approved by the U.S. Food and Drug Administration. The FDA has determined that such clearance or approval is not necessary. This test is used for clinical purposes. It should not be regarded as investigational or for research. This laboratory is certified under the Clinical Laboratory Improvement Amendments of 1988 (CLIA-88) as qualified to perform high complexity clinical laboratory testing. CLIA ID# [id number] Performed at: [facility], [address] [place] [address] Recovery Unit Operator: Montana Siddiqui MD, Blood BLOOD SPECIMEN / Unknown Lab Venipuncture / Unknown 05/14/2020 4:10 PM PENETRATION TESTER 05/14/2020 4:10 PM PENETRATION TESTER Jhonny West MD LAB - BLOOD BANK O RDERABLES [facility]) [address] [place] [address], [place] * PTT [facility] (05/14/2020 3:19 PM PENETRATION TESTER) Pathologist [facility] APTT 32.1 23.0 - 38.4 Seconds 05/14/2020 4:06 PM PENETRATION TESTER [facility] Comment:Suggested therapeuti c range for full dose I.V. unfractionated heparin therapy for venous thromboembolism is 71 to 109 seconds. Blood BLOOD SPECIMEN / Unknown Venipuncture / Unknown 05/14/2020 3:19 PM PENETRATION TESTER 05/14/2020 3:57 PM PENETRATION TESTER Meeta Fofanautt [facility] - COAGULATION ORDERABLES [facility] [address] [place] [address], [facility] [phone] * PRE-TRANSPLANT ENGRAFT (05/14/2020 3:19 PM PENETRATION TESTER) Blood BLOOD SPECIMEN / Unknown Venipuncture / Unknown 05/14/2020 3:19 PM PENETRATION TESTER 05/14/2020 3:44 PM PENETRATION TESTER Meeta Fofanautt BULKING MACHINE [facility] LAB - CHEMISTRY O RDERABLES Performing Organization Address City/[facility]/ZIP Co de Phone Number [facility] ([facility]) [address] [place] [address] * HLA TYPING DNA HIGH RESOLUTION DQ (05/14/2020 3:19 PM PENETRATION TESTER) Only the most recent of2 resultswithin the time period is included. DR DQ Low Resolution DQB1-1 *03:01 11/11/2020 10:19 AM [facility] ([facility]) DR DQ Low Resolution DQB1-2 *03:02 11/11/2020 10:19 AM [facility] ([facility]) DQ Locus Methodology SSP 11/11/2020 10:19 AM T [facility] ([facility]) Comment DQ Locus - 11/12/19 21 10:19 AM CDT [facility] ([facility]) DQ Locus Test Date 0 11/11/2020 10:19 AM [facility] ([facility]) Comment: This test was developed and its performance characteristics determined by the [facility]. It has not been cleared or approved by the U.S. Food and Drug Administration. The FDA has determined that such clearance or approval is not necessary. This test is used for clinical purposes. It should not be regarded as investigational or for research. This laboratory is certified under the Clinical Laboratory Improvement Amendments of 1988 (CLIA-88) as qualified to perform high complexity clinical laboratory testing. CLIA ID# [id number] Performed at: [facility], [address] @ [place] [address] Recovery Unit Operator: Montana Siddiqui MD, Blood BLOOD SPECIMEN / Unknown Venipuncture / Unknown 05/14/2020 3:19 PM PENETRATION TESTER 05/14/2020 3:44 PM PENETRATION TESTER Meeta Henriquez BULKING MACHINE OPERATOR-EXTRACT MIXER LAB - BLOOD BANK ORDERABLES [facility] ([facility]) [address] [place] [address], [facility] * HLA TYPING DNA HIGH RESOLUTION B (05/14/2020 3:19 PM PENETRATION TESTER) Only the most recent of2 resultswithin the time period is included. HLA B Locus B-1 *15:01 1 10:19 AM CDT [facility] ([facility]) HLA B Locus Bw-1 6 11/12/19 21 10:19 AM CDT [facility] ([facility]) HLA B Locus B-2 *27:05 1 10:19 AM CDT [facility] ([facility]) HLA B Locus Bw-2 4 11/12/19 21 10:19 AM CDT [facility] ([facility]) HLA B Locus Methodology SSP 11/11/2020 10:19 AM CDT [facility] ([facility]) Comment HLA B Locus - 11/11 10:19 AM CDT [facility] ([facility]) HLA B Locus Test Date 0 11/11/2020 10:19 AM CDT [facility] ([facility]) Comment: This test was developed and its performance characteristics determined by the [facility]. It has not been cleared or approved by the U.S. Food and Drug Administration. The FDA has determined that such clearance or approval is not necessary. This test is used for clinical purposes. It should not be regarded as investigational or for research. This laboratory is certified under the Clinical Laboratory Improvement Amendments of 1988 (CLIA-88) as qualified to perform high complexity clinical laboratory testing. CLIA ID# [id number] Performed at: [facility], [address] @ [place] [address] Recovery Unit Operator: Montana Siddiqui MD, Blood BLOOD SPECIMEN / Unknown Venipuncture / Unknown 05/14/2020 3:19 PM PENETRATION TESTER 05/14/2020 3:44 PM PENETRATION TESTER Meeta Henriquez BULKING MACHINE OPERATOR-EXTRACT MIXER LAB - BLOOD BANK ORDERABLES [facility] ([facility]) [address] [place] [address], [facility] * HLA TYPING DNA HIGH RESOLUTION A (05/14/2020 3:19 PM PENETRATION TESTER) Only the most recent of2 resultswithin the time period is included. A Locus HR A1 *03:01 11/11/2020 10:19 AM CDT [facility] ([facility]) A Locus HR A2 *31:01 11/11/2020 10:19 AM CDT [facility] ([facility]) A Locus HR Methodology SSP 11/11/2020 10:19 AM CDT [facility] ([facility]) Comment A Locus HR - 2020 10:19 AM CDT [facility] ([facility]) A Locus Test Date 0 11/11/2020 10:19 AM CDT [facility] ([facility]) Comment: This test was developed and its performance characteristics determined by the [facility]. It has not been cleared or approved by the U.S. Food and Drug Administration. The FDA has determined that such clearance or approval is not necessary. This test is used for clinical purposes. It should not be regarded as investigational or for research. This laboratory is certified under the Clinical Laboratory Improvement Amendments of 1988 (CLIA-88) as qualified to perform high complexity clinical laboratory testing. CLIA ID# [id number] Performed at: [facility], [address] @ [place] [address] Recovery Unit Operator: Montana Siddiqui MD, Blood BLOOD SPECIMEN / Unknown Venipuncture / Unknown 05/14/2020 3:19 PM PENETRATION TESTER 05/14/2020 3:44 PM PENETRATION TESTER Meeta Henriquez [facility] LAB - BLOOD BANK ORDERABLES [facility] ([facility]) [address] [place] [address], [facility] * HLA TYPING DNA HIGH RESOLUTION C (05/14/2020 3:19 PM PENETRATION TESTER) Only the most recent of2 resultswithin the time period is included. C Locus C1 *02:02 11/11/2020 10:19 AM CDT [facility]) C Locus C2 *03:03 11/11/2020 10:19 AM [facility] ([facility]) Test Method SSP 11/11/2020 10:19 AM [facility] ([facility]) Comment C Locus - 10:19 AM [facility] ([facility]) C Locus Test Date 0 11/11/2020 10:19 AM T [facility] ([facility]) Comment: This test was developed and its performance characteristics determined by the [facility]. It has not been cleared or approved by the U.S. Food and Drug Administration. The FDA has determined that such clearance or approval is not necessary. This test is used for clinical purposes. It should not be regarded as investigational or for research. This laboratory is certified under the Clinical Laboratory Improvement Amendments of 1988 (CLIA-88) as qualified to perform high complexity clinical laboratory testing. CLIA ID# [id number] Performed at: [facility], [address] @ [place] [address] Recovery Unit Operator: Montana Siddiqui MD, Blood BLOOD SPECIMEN / Unknown Venipuncture / Unknown 05/14/2020 3:19 PM PENETRATION TESTER 05/14/2020 3:44 PM PENETRATION TESTER Meeta Fofanautt BULKING MACHINE [facility] LAB - BLOOD BANK ORDERABLES [facility] ([facility]) [address] [place] [address], [facility] * DONOR PANEL [id number] (05/14/2020 3:19 PM PENETRATION TESTER) Donor Hepatitis B Surface Antigen Negative Negative 05/15/2020 6:07 PM PENETRATION TESTER [facility] ([facility]) Comment:Test performed with Hackett Prism HBsAg kit. Donor Hepatitis B Core Virus Antibody Total Negative Negative 05/15/2020 6:07 PM PENETRATION TESTER [facility] ([facility]) Comment:Test performed with Hackett Prism HBcore kit. Donor Hepatitis C Antibody Negative Negative 05/15/2020 6:07 PM PENETRATION TESTER [facility] ([facility]) Comment:Test performed with Hackett Prism HCV kit. Donor Syphilis (T pallidum) Non Reactive Non Reactive 05/15/2020 6:07 PM PENETRATION TESTER [facility] ([facility]) Comment:Test performed with LawPath PK TP kit. Donor Cytomegalovirus Total Antibody Non Reactive Non Reactive 05/15/2020 6:07 PM PENETRATION TESTER [facility] ([facility]) Comment:Test performed with Mesitis Capture-CMV IgG and IgM kit. Donor HIV-1/O/2 Antibody Negative Negative 05/15/2020 6:07 PM PENETRATION TESTER [facility] ([facility]) Comment:Test performed with Hackett Prism HIV O Plus kit. Donor HIV-1/HCV/HBV Comment Non Reactive 05/15/2020 6:07 PM PENETRATION TESTER [facility] ([facility]) Comment: Non-Reactive for HIV-1 and HIV-2 RNA Non-Reactive for HCV RNA Non-Reactive for HBV DNA Test performed with Aaliyah MPX kit. Donor HTLV-I/II Antibodies Qual Negative Negative 05/15/2020 6:07 PM PENETRATION TESTER [facility] ([facility]) Comment:Test performed with Hackett Prism HTLV-I/HTLV-II assay. Donor Zika Virus SHANDA Assay Non Reactive Non Reactive 05/15/2020 6:07 PM PENETRATION TESTER [facility] ([facility]) Comment:Test performed with Aaliyah Zika kit. Donor WNV SHANDA Assay Non Reactive Non Reactive 05/15/2020 6:07 PM PENETRATION TESTER [facility] ([facility]) Comment:Test performed with Aaliyah WNV kit. Donor T cruzi (Chagas) Non Reactive Non Reactive 05/15/2020 6:07 PM PENETRATION TESTER [facility] ([facility]) Comment:Test performed with Hackett Prism Chagas assay. Blood BLOOD SPECIMEN / Unknown Venipuncture / Unknown 05/14/2020 3:19 PM PENETRATION TESTER 05/14/2020 3:44 PM PENETRATION TESTER Narrative [facility] ([facility]) - 05/15/2020 6:07 PM PENETRATION TESTER Performed at: [facility] [employer] [address] [id number] Recovery Unit Operator: Alyx Llanos PhD, Phone: [phone] Meeta Florence [facility] LAB - CHEMISTRY O RDERABLES [facility] ([facility]) [address] [place] [address] * URIC ACID BLOOD (05/14/2020 3:19 PM PENETRATION TESTER) [facility] Uric Acid 4.2 2.6 - 7.2 mg/dL 05/14/2020 4:17 PM PENETRATION TESTER [facility] Blood BLOOD SPECIMEN / Unknown Venipuncture / Unknown 05/14/2020 3:19 PM PENETRATION TESTER 05/14/2020 3:44 PM PENETRATION TESTER Meeta Henriquez [facility] LAB - CHEMISTRY O RDERABLES [address] [address], [facility] [phone] * SUPA-MOYER VIRUS ANTIBODY TO VCA IGM (05/14/2020 3:19 PM PENETRATION TESTER) [facility] Supa-Moyer Virus Antibody IgM Viral Capsid Antigen <10.0 0.0 - 43.9 U/mL 05/18/2020 1:14 AM PENETRATION TESTER [email or web address] [facility] ([facility]) Comment: INTERPRETIVE INFORMATION: Supa-Moyer Virus Antibody to Viral Capsid Antigen, IgM 35.9 U/mL or less.......Not Detected 36.0-43.9 U/mL..........Indeterminate - Repeat testing in 10-14 days may be helpful. 44.0 U/mL or greater....Detected Performed By: [facility] [address] [place] [address] Medical Support Assistant: Maribell Fragoso MD Blood BLOOD SPECIMEN / Unknown Venipuncture / Unknown 05/14/2020 3:19 PM PENETRATION TESTER 05/14/2020 4:42 PM PENETRATION TESTER Meeta Henriquez [facility] LAB - SEROLOGY OR DERABLES Performing Organization Address [facility] Co de Phone Number [facility] [employer] ([facility]) [address] * CYTOMEGALOVIRUS ANTIBODY IGM BLOOD (05/14/2020 3:19 PM PENETRATION TESTER) Pathologist [facility] Cytomegalovirus Antibody IgM <30.0 0.0 - 29.9 AU/mL 05/16/2020 11:07 AM PENETRATION TESTER [facility] ([facility]) Comment: Negative <30.0 Equivocal 30.0 - 34.9 Positive >34.9 A positive result is generally indicative of acute infection, reactivation or persistent IgM production. Blood BLOOD SPECIMEN / Unknown Venipuncture / Unknown 05/14/2020 3:19 PM PENETRATION TESTER 05/14/2020 4:32 PM PENETRATION TESTER Narrative [facility] ([facility]) - 05/16/2020 11:07 AM PENETRATION TESTER Performed at: [facility] [address], [place] [id number] Recovery Unit Operator: Nathaniel Perez PhD, Phone: [phone] Meeta Fofanautt [facility] LAB - CHEMISTRY O RDERABLES Performing Organization Address [facility] Co de Phone Number [facility] ([facility]) [address] [phone] * CYTOMEGALOVIRUS ANTIBODY IGG BLOOD (05/14/2020 3:19 PM PENETRATION TESTER) Only the most recent of2 resultswithin the time period is included. Pathologist [facility] Cytomegalovirus Antibody IgG 0.28 U/mL 05/18/2020 2:10 AM PENETRATION TESTER [employer] ([facility]) Comment: INTERPRETIVE INFORMATION: Cytomegalovirus Antibody, IgG 0.59 U/mL or less......... Not Detected 0.6 - 0.69 U/mL........... Indeterminate-Repeat testing in 10-14 days may be helpful. 0.70 U/mL or greater...... Detected In immunocompromised patients, [...] laboratory at the same time. Performed By: [facility] [address] [place] [address] Medical Support Assistant: Maribell Fragoso MD Blood BLOOD SPECIMEN / Unknown Venipuncture / Unknown 05/14/2020 3:19 PM PENETRATION TESTER 05/14/2020 4:42 PM PENETRATION TESTER Meeta Henriquez BULKING MACHINE OPERATOR-EXTRACT MIXER LAB - CHEMISTRY O RDERABLES [facility]) [address] [place] [address], [facility] * (ABNORMAL) HERPES SIMPLEX 1+2 ANTIBODY IGG/IGM PANEL (05/14/2020 3:19 PM PENETRATION TESTER) Herpes Simplex Virus 1/2 Antibody IgG 11.60 IV 05/20/2020 5:29 AM PENETRATION TESTER [employer] ([facility]) Comment: INTERPRETIVE INFORMATION: HSV 1/2 COMBINED Ab SCREEN, IgG 0.89 IV or less.........Not Detected 0.90-1.09 IV............Indeterminate- Repeat testing in 10-14 days may be helpful. 1.10 IV or greater......Detected The best evidence for current infection is a significant change on two appropriately timed specimens, where both tests are done in the same laboratory at the same time. Herpes Simplex Virus 1/2 Antibody IgM 1.55(H) <=0.89 IV 05/20/2020 5:29 AM PENETRATION TESTER [employer] ([facility]) Comment: INTERPRETIVE INFORMATION: Herpes Simplex Virus Type 1 and/or 2 Antibodies, IgM by RYAN 0.89 IV or Less .......... Not Detected 0.90 - 1.09 IV ........... Indeterminate- Repeat testing in 10-14 days may be helpful. 1.10 IV or Greater ....... Detected-IgM antibody to HSV detected, which may indicate a current or recent infection. However, low levels of IgM antibodies may occasionally persist for more than 12 months post-infection. Performed By: [facility] [address] [place] [address] Medical Support Assistant: Maribell Fargoso MD Blood BLOOD SPECIMEN / Unknown Venipuncture / Unknown 05/14/2020 3:19 PM PENETRATION TESTER 05/14/2020 4:32 PM PENETRATION TESTER Meeta Fofanautt BULKING MACHINE OPERATOR-EXTRACT MIXER LAB - CHEMISTRY O RDERABLES [facility]) [address] [place] [address], [facility] * VARICELLA ZOSTER ANTIBODY IGM (05/14/2020 3:19 PM PENETRATION TESTER) Varicella zoster Virus Antibody IgM 0.22 <=0.90 ISR 05/19/2020 6:36 AM PENETRATION TESTER [employer] ([facility]) Comment: INTERPRETIVE INFORMATION: Varicella-Zoster Virus Antibody, IgM 0.90 ISR or less ........ Negative - No significant level of detectable varicella-zoster virus IgM antibody. 0.91-1.09 ISR ........... Equivocal - Repeat testing in 10-14 days may be helpful. 1.10 ISR or greater ..... Positive - Significant level of detectable varicella-zoster virus IgM antibody. Indicative of current or recent infection. However, low levels of IgM antibodies may occasionally persist for more than 12 months post-infection or immunization. Performed By: [facility] [address] [place] [address] Medical Support Assistant: Maribell Fragoso MD Blood BLOOD SPECIMEN / Unknown Venipuncture / Unknown 05/14/2020 3:19 PM PENETRATION TESTER 05/14/2020 4:43 PM PENETRATION TESTER Meeta Henriquez BULKING MACHINE OPERATOR-EXTRACT MIXER LAB - CHEMISTRY O RDERABLES Performing Organization Address City/[facility] Co de Phone Number [facility]) [address] [place] [address] * VARICELLA ZOSTER ANTIBODY IGG (05/14/2020 3:19 PM PENETRATION TESTER) Varicella zoster Virus Antibody IgG 1484.0 IV 05/18/2020 3:11 AM PENETRATION TESTER [facility] [employer] ([facility]) Comment: INTERPRETIVE INFORMATION: VZV Ab, IgG 134.9 IV or less ....... Negative - No significant level of detectable IgG varicella-zoster antibody. 135.0 - 164.9 IV ....... Equivocal - Repeat testing in 10-14 days may be helpful. 165.0 IV or greater .... Positive - IgG antibody to varicella-zoster detected, which may indicate a current or past varicella-zoster infection. The best evidence for current infection is a significant change on two appropriately timed specimens, where both tests are done in the same laboratory at the same time. Performed By: [facility] [address] [place] [address] Medical Support Assistant: Maribell Fragoso MD Blood BLOOD SPECIMEN / Unknown Venipuncture / Unknown 05/14/2020 3:19 PM PENETRATION TESTER 05/14/2020 4:42 PM PENETRATION TESTER Meeta Henriquez BULKING MACHINE OPERATOR-EXTRACT MIXER LAB - CHEMISTRY O RDERABLES Performing Organization Address City/State/[facility] Co de Phone Number [facility] [employer]) [address] [place] [address] * TOXOPLASMA GONDII ANTIBODY IGG (05/14/2020 3:19 PM PENETRATION TESTER) Toxoplasma Antibody IgG <3.0 IU/mL 05/18/2020 3:15 AM PENETRATION TESTER [employer] ([facility]) Comment: INTERPRETIVE INFORMATION: Toxoplasma Ab, IgG 7.1 IU/mL or less....... Not Detected 7.2-8.7 IU/mL .......... Indeterminate-Repeat testing in 10-14 days may be helpful. 8.8 IU/mL or greater ... Detected The best [...] the amount of antibody present. Performed By: [facility] [address] [place] [address] Medical Support Assistant: Maribell Fragoso MD Blood BLOOD SPECIMEN / Unknown Venipuncture / Unknown 05/14/2020 3:19 PM PENETRATION TESTER 05/14/2020 4:32 PM PENETRATION TESTER Meeta Henriquez [facility] LAB - CHEMISTRY O RDERABLES Performing Organization Address [facility] Co de Phone Number [facility] ([facility]) [address] [place] [address] * (ABNORMAL) SUPA-MOYER VIRUS ANTIBODY TO VCA IGG (05/14/2020 3:19 PM PENETRATION TESTER) [facility] Supa-Moyer Virus Antibody IgG Viral Capsid Antigen 207.0(H) 0.0 - 21.9 U/mL 05/18/2020 2:19 AM PENETRATION TESTER [facility] ([facility]) Comment: INTERPRETIVE INFORMATION: Supa-Moyer Virus Antibody to Viral Capsid Antigen, IgG 17.9 U/mL or less.......Not Detected 18.0-21.9 U/mL..........Indeterminate - Repeat testing in 10-14 days may be helpful. 22.0 U/mL or greater....Detected Performed By: [employer] [address] [place] [address] Medical Support Assistant: Maribell Fragoso MD Blood BLOOD SPECIMEN / Unknown Venipuncture / Unknown 05/14/2020 3:19 PM PENETRATION TESTER 05/14/2020 4:32 PM PENETRATION TESTER Meeta Henriquez [facility] LAB - CHEMISTRY O RDERABLES Performing Organization Address City/[facility]/ZIP Co de Phone Number [facility]) [address] [place] [address] * SICKLE CELL SCREEN (05/14/2020 3:19 PM PENETRATION TESTER) [facility] Sickle Cell Screen Negative Negative 05/14/2020 4:11 PM PENETRATION TESTER [facility] Blood BLOOD SPECIMEN / Unknown Venipuncture / Unknown 05/14/2020 3:19 PM PENETRATION TESTER 05/14/2020 3:44 PM PENETRATION TESTER Meeta Henriquez [facility] LAB - HEMATOLOGY ORDERABLES Performing Organization Address [facility]/ZIP Co de Phone Number [address] [address], [place] [phone] * TRIGLYCERIDES BLOOD (05/14/2020 3:19 PM PENETRATION TESTER) [facility] Triglycerides 115 <150 mg/dL 05/14/2020 4:[address] [facility] Comment: ATP III Classification of Triglycerides: <150 mg/dL: Normal 150 - 199 mg/dL: Borderline High 200 - 400 mg/dL: High >500 mg/dL: Very High Blood BLOOD SPECIMEN / Unknown Venipuncture / Unknown 05/14/2020 3:19 PM PENETRATION TESTER 05/14/2020 3:44 PM PENETRATION TESTER Meeta Henriquez [facility] LAB - CHEMISTRY O RDERABLES Performing Organization Address City/[facility]/ZIP Co de Phone Number [address] [address], [place] [phone] * COMPREHENSIVE METABOLIC PANEL (05/14/2020 3:19 PM PENETRATION TESTER) [facility] BUN 8 7 - 26 mg/dL 05/14/2020 4:16 PM [facility] Creatinine 0.8 0.6 - 1.2 mg/dL 05/14/2020 4:[address] [facility] Sodium 136 136 - 145 mmol/L 05/14/2020 4:[address] [facility] Potassium 3.6 3.5 - 4.5 mmol/L 05/14/2020 4:[address] [facility] Chloride 103 98 - 107 mmol/L 05/14/2020 4:16 PM [facility] CO2 25 22 - 29 mmol/L 05/14/2020 4:[address] [facility] Glucose 100 70 - 115 mg/dL 05/14/2020 4:[address] [facility] Calcium 8.8 8.4 - 10.2 mg/dL 05/14/2020 4:[address] [facility] Protein Total 7.6 6.0 - 8.3 g/dL 05/14/2020 4:[address] [facility] Albumin 4.3 3.4 - 5.0 g/dL 05/14/2020 4:[address] [facility] Bilirubin Total 0.3 0.2 - 1.2 mg/dL 05/14/2020 4:[address] [facility] Alkaline Phosphatase 98 40 - 150 Units/L 05/14/2020 4:[address] [facility] ALT 16 0 - 55 Units/L 05/14/2020 4:[address] [facility] AST 14 5 - 34 Units/L 05/14/2020 4:[address] [facility] Anion Gap 12 8 - 18 05/14/2020 4:[address] [facility] BUN/Creatinine Ratio 10 7 - 23 05/14/2020 4:[address] [facility] Osmolality Calculated 280 270 - 300 mOsm/kg 05/14/2020 4:[address] [facility] Albumin/Globulin Ratio 1.3 1.1 - 2.3 05/14/2020 4:[address] [facility] eGFR >60 >60 mL/min/1.7 3 m2 05/14/2020 4:[address] [facility] Blood BLOOD SPECIMEN / Unknown Venipuncture / Unknown 05/14/2020 3:19 PM PENETRATION TESTER 05/14/2020 3:44 PM [facility] Meeta Fofanautt BULKING MACHINE OPERATOR-EXTRACT MIXER LAB - CHEMISTRY O RDERABLES [facility] [address] [place] [address], [facility] [phone] * HCG BETA BLOOD QUANTITATIVE (05/14/2020 3:19 PM PENETRATION TESTER) Beta-hCG Total Quantitative <3 <5 mIU/mL 05/14/2020 4:[address] [facility] Comment: This assay is cleared for use in the early detection of only. It is not approved for any other uses such as tumor marker screening, tumor marker monitoring, etc. and should not be used for any other purposes. HCG Numeric Result Interpretation: Non- Females: < 5 mIU/mL Post-Menopausal Females: < 7 mIU/mL Blood BLOOD SPECIMEN / Unknown Venipuncture / Unknown 05/14/2020 3:19 PM PENETRATION TESTER 05/14/2020 3:44 PM PENETRATION TESTER Meeta Fofanaradha [facility] - CHE[facility]Y O RDERABLES [address] [address], [place] [phone] * PHOSPHORUS BLOOD (05/14/2020 3:19 PM PENETRATION TESTER) Phosphorus 2.5 2.3 - 4.7 mg/dL 05/14/2020 4:17 PM PENETRATION TESTER [facility] Blood BLOOD SPECIMEN / Unknown Venipuncture / Unknown 05/14/2020 3:19 PM PENETRATION TESTER 05/14/2020 3:44 PM PENETRATION TESTER Meeta Fofanaradha [facility] - CHEMISTRY O RDERABLES Performing Organization Address City/[facility]/ZIP Co de Phone Number [address] [address], [place] [phone] * MAGNESIUM BLOOD (05/14/2020 3:19 PM PENETRATION TESTER) Magnesium 1.8 1.6 - 2.6 mg/dL 05/14/2020 4:17 PM PENETRATION TESTER [facility] Blood BLOOD SPECIMEN / Unknown Venipuncture / Unknown 05/14/2020 3:19 PM PENETRATION TESTER 05/14/2020 3:44 PM PENETRATION TESTER Meeta Fofanaradha [facility] - CHEMISTRY O RDERABLES Performing Organization Address City/[facility]/ZIP Co de Phone Number [address] [address], [place] [phone] * LDH BLOOD (05/14/2020 3:19 PM PENETRATION TESTER) Pathologist [facility] LDH Total 146 125 - 243 Units/L 05/14/2020 4:17 PM PENETRATION TESTER [facility] Blood BLOOD SPECIMEN / Unknown Venipuncture / Unknown 05/14/2020 3:19 PM PENETRATION TESTER 05/14/2020 3:44 PM PENETRATION TESTER [facility] RDERABLES [address] [address], [facility] [phone] * HEPATITIS B SURFACE ANTIBODY (05/14/2020 3:19 PM PENETRATION TESTER) [facility] Hepatitis B Virus Surface Antibody Non-react elba Non-react elba 05/14/2020 4:59 PM PENETRATION TESTER [facility] Comment: < 8 mIU/mL Hepatitis B surface Antibody (HBsAb). Nonreactive for HBsAb - individual is considered not immune to Hepatitis B Virus infection. Hepatitis B Surface Antibody Quantitative 1.2 <8.0 mIU/mL 05/14/2020 4:59 PM PENETRATION TESTER [facility] Comment: Hepatitis B Surface Antibody Numeric Result Interpretation: Nonreactive: <8.0 mIU/mL Indeterminate: 8.0 - 12.0 mIU/mL Reactive: >12.0 mIU/mL Blood BLOOD SPECIMEN / Unknown Venipuncture / Unknown 05/14/2020 3:19 PM PENETRATION TESTER 05/14/2020 4:25 PM PENETRATION TESTER Meeta [facility]aradha [facility] CHE[facility] RDERABLES [address] [address], [place] [phone] * CHOLESTEROL BLOOD (05/14/2020 3:19 PM PENETRATION TESTER) Pathologist [facility] Cholesterol Total 186 <200 mg/dL 05/14/2020 4:16 PM PENETRATION TESTER [facility] Blood BLOOD SPECIMEN / Unknown Venipuncture / Unknown 05/14/2020 3:19 PM PENETRATION TESTER 05/14/2020 3:44 PM PENETRATION TESTER Meeta Henriquez BULKING MACHINE OPERATOR-[facility] LAB - CHEMISTRY O RDERABLES [facility] [address] [place] [address], [facility] [phone] * PROTEIN ELECTROPHORESIS BLOOD (05/14/2020 3:19 PM PENETRATION TESTER) Interpretation Serum PE Normal Pattern Normal Pattern 05/31/2020 1:[address] [facility] Comment: Serum capillary electrophoresis shows characteristic bands corresponding to albumin, alpha and beta globulins and polyclonal immunoglobulins. No monoclonal immunoglobulins detected. Non-secretory myeloma (NSM) and light chain only myeloma cannot be excluded based on this result. Recommend serum free light chain measurements for complete evaluation of plasma cell disorders. Deepak Mckeon PhD, [facility] Clinical Computer Hardware Technician disassembler product *The electrophoresis pattern and the interpretation have been reviewed and verified by the teaching physician. Protein Total 7.3 6.0 - 8.3 g/dL 05/31/2020 1:13 PM [facility] Albumin 4.4 3.3 - 5.6 g/dL 05/31/2020 1:[address] [facility] Alpha-1 Globulins 0.3 0.2 - 0.4 g/dL 05/31/2020 1:[address] [facility] Alpha-2 Globulins 0.7 0.5 - 1.0 g/dL 05/31/2020 1:[address] [facility] Beta Globulins 0.8 0.6 - 1.1 g/dL 05/31/2020 1:[address] [facility] Gamma Globulins 1.1 0.6 - 1.6 g/dL 05/31/2020 1:13 PM [facility] Blood BLOOD SPECIMEN / Unknown Venipuncture / Unknown 05/14/2020 3:19 PM PENETRATION TESTER 05/14/2020 4:25 PM PENETRATION TESTER Meeta Henriquez BULKING MACHINE OPERATOR-[employer] LAB - CHEMISTRY O RDERABLES [facility] [address] [place] [address], [facility] [phone] * PATHOLOGY/CYTOLOGY REPORT ORDER (06/22/2014 7:01 PM PENETRATION TESTER) Narrative 06/22/2014 7:01 PM PENETRATION TESTER Ordered by an unspecified provider. Scanned Document LAB - PATHOLOGY/CYTO LOGY ORDERABLES * GROSS + MICRO EXAM (STL) (06/19/2014 3:37 PM PENETRATION TESTER) Case Report Surgical Pathology Report Case: [id number] Authorizing Provider: Praveena Cummins MD Collected: 06/19/2014 03:37 PM Ordering Location: [place] Received: 06/22/2014 08:03 AM [facility] Pathologist: Cherelle Meza MD Specimen: Cyst 06/23/2014 9:35 AM [facility] [...] were determined by the [facility] in compliance with CLIA `88 regulations. Some of these tests rely on the use of analyte-specific reagents and are subject to specific labeling requirements by the FDA. Such tests were developed by the [facility] of [facility] and have not been cleared or approved by the FDA. The FDA has determined that such clearance or approval is not necessary. These tests are used for clinical purposes and should not be regarded as investigational or for research. This case has been personally reviewed and interpreted by the attending (teaching) pathologist. 06/23/2014 9:35 AM PENETRATION TESTER [facility] Pathology/Cytolo gy CYST TISSUE / Unknown 06/19/2014 3:37 PM PENETRATION TESTER 06/22/2014 8:03 AM PENETRATION TESTER Praveena Cummins MD LAB - PATHOLOGY /CYTOLOGY ORDERABLES Performing Organization Address City/State/[facility] Co de Phone Number [facility] [address] [place] [phone] * IMAGING/RADIOLOGY/XRAY RESULTS ORDER (10/14/2012 3:13 PM CDT) Anatomical Region Laterality Modality Other Narrative 09/03/2012 10:53 AM CDT Procedure Note Document, Scanned - 09/03/2012 10:53 AM CDT Transcriptions Document, Scanned - 10/14/2012 3:13 PM CDT Scanned Document IMAGING
--- OUTSIDE RECORDS SUMMARY | 2024-07-13 21:52 | XMS_ITS | Data Portability ---
Author Organization [facility] Address [address] [place] [address] Care Team Providers Care Physical Therapy Technician Name Role Phone CAROLINE NICK Primary Care Provider Assessment Encounter Date Assessment Date Assessment LastModified by Organization Details LastModified Time 05/05/2024 05/05/2024 Patient is ___weeks . Discussed plan. Not available 05/05/2024 16:48:29 05/19/2024 05/19/2024 Patient is ___weeks . Discussed plan. Not available 05/19/2024 16:30:31 06/03/2024 06/03/2024 Patient is ___weeks . Discussed plan. Not available 06/03/2024 09:28:35 07/02/2024 07/02/2024 Patient is ___weeks . Discussed plan. Not available 07/02/2024 16:28:13 Plan of Treatment Reminders Order Date Submit Date Provider Last Modified By Organization Details Last Modified Time Details Appointments None recorded. Lab unlisted lab - CMP/CBC/ur ic acid 2023 024 [facility] (Lab), [address], [place], [address], 04:47:25 protein:cr eatinine ratio, urine 2023 024 [facility] (Lab), [address], [place], [address], 5 04:47:26 Referral None recorded. Procedures None recorded. Surgeries None recorded. Imaging US, obstetric, 2nd or 3rd trimester 2023 024 [email or web address], [address], [place], [address], 4 09:02:20 Medication Orders None recorded. Patient TargetsNo targets recorded. Patient InstructionsNo instructions recorded. Reason for Referral None Reported. Results Created Date Observation Date Name Description Value Unit Range Abnormal Flag Note LastModifiedBy Organization Detail LastModifiedTime 04/28/20 24 04/28/2024 PROTE IN/CR EATIN INE RATIO , URINE creatinine, urine 36.9 mg/dL R-No refer ence range estab lishe d for this assay Not Available [facility] (Lab) [address], [place], [address], 04/29/2024 05:18:31 04/28/20 24 04/28/2024 PROTE IN/CR EATIN INE RATIO , URINE protein, urine <4 mg/dL R-No refer ence range estab lishe d for this assay Not Available [facility] (Lab) [address], [place], [address], 04/29/2024 05:18:31 04/28/20 24 04/28/2024 PROTE IN/CR [...] fican t prote inuri a. Not Available [facility] (Lab) [address], [place], [address], 04/29/2024 05:18:31 04/28/20 24 04/28/2024 CBC W/DIF F WBC 8.6 10'3/ uL 3.5-[address] [facility] (Lab) [address], [place], [address], 04/29/2024 06:59:40 04/28/20 24 04/28/2024 CBC W/DIF F RBC 3.97 10'6/ uL (based on docume nted legal sex) 3.80-[address] [facility] (Lab) [address], [place], [address], 04/29/2024 06:59:40 04/28/20 24 04/28/2024 CBC W/DIF F HGB 12.3 g/dL (based on docume nted legal sex) 11.6-[address] [facility] (Lab) [address], [place], [address], 04/29/2024 06:59:40 04/28/20 24 04/28/2024 CBC W/DIF F HCT 36.0 % (based on docume nted legal sex) 34.0-[address] [facility] (Lab) [address], [place], [address], 04/29/2024 06:59:40 04/28/20 24 04/28/2024 CBC W/DIF F MCV 90.7 fL 80.0-[address] [facility] (Lab) [address], [place], [address], 04/29/2024 06:59:40 04/28/20 24 04/28/2024 CBC W/DIF F MCH 31.0 pg 27.0-[address] [facility] (Lab) [address], [place], [address], 04/29/2024 06:59:40 04/28/20 24 04/28/2024 CBC W/DIF F MCHC 34.2 g/dL 32.0-[address] [facility] (Lab) [address] [facility], [place], [address], 04/29/2024 06:59:40 04/28/20 24 04/28/2024 CBC W/DIF F RDW 13.2 % 11.0-[address] [facility] (Lab) [address] [facility], [place], [address], 04/29/2024 06:59:40 04/28/20 24 04/28/2024 CBC W/DIF F plt 288 10'3/ uL 150-[address] [facility] (Lab) [address] [facility], [place], [address], 04/29/2024 06:59:40 04/28/20 24 04/28/2024 CBC W/DIF F MPV 11.5 fL 8.8-[address] [facility] (Lab) [address] [facility], [place], [address], 04/29/2024 06:59:40 04/28/20 24 04/28/2024 CBC W/DIF F NRBC's 0.0 % 0.[address] [facility] (Lab) [address] [facility], [place], [address], 04/29/2024 06:59:40 04/28/20 24 04/28/2024 CBC W/DIF F absolute NRBCs 0.0 10'3/ uL no refere nce range establ ished Not Available [facility] (Lab) [address] [facility], [place], [address], 04/29/2024 06:59:40 04/28/20 24 04/28/2024 CBC W/DIF F neutrophils 75.3 % 34.0-7 3[address] [facility] (Lab) [address] [facility], [place], [address], 04/29/2024 06:59:40 04/28/20 24 04/28/2024 CBC W/DIF F lymphocytes 19.6 % 15.0-[address] [facility] (Lab) [address] [facility], [place], [address], 04/29/2024 06:59:40 04/28/20 24 04/28/2024 CBC W/DIF F monocytes 4.1 % 1.0-[address] [facility] (Lab) [address] [facility], [place], [address], 04/29/2024 06:59:40 04/28/20 24 04/28/2024 CBC W/DIF F eosinophils 0.5 % 0.0-8. [address] [facility] (Lab) [address] [place], [address], 04/29/2024 06:59:40 04/28/20 24 04/28/2024 CBC W/DIF F basophils 0.3 % 0.0-2. [address] [facility] (Lab) [address] [facility], [place], [address], 04/29/2024 06:59:40 04/28/20 24 04/28/2024 CBC W/DIF F immature granulocytes 0.2 % no define d refere nce range Not Available [facility] (Lab) [address] [facility], [place], [address], 04/29/2024 06:59:40 04/28/20 24 04/28/2024 CBC W/DIF F absolute neutrophils 6.5 10'3/ uL 1.5-8. [address] [facility] (Lab) [address] [facility], [place], [address], 04/29/2024 06:59:40 04/28/20 24 04/28/2024 CBC W/DIF F absolute lymphocytes 1.7 10'3/ uL 1.0-4. [address] [facility] (Lab) [address] [place], [address], 04/29/2024 06:59:40 04/28/20 24 04/28/2024 CBC W/DIF F absolute monocytes 0.4 10'3/ uL 0.2-1. [address] [facility] (Lab) [address] [facility], [place], [address], 04/29/2024 06:59:40 04/28/20 24 04/28/2024 CBC W/DIF F absolute eosinophils 0.0 10'3/ uL 0.0-0. [address] [facility] (Lab) [address] [facility], [place], [address], 04/29/2024 06:59:40 04/28/20 24 04/28/2024 CBC W/DIF F absolute basophils 0.0 10'3/ uL 0.0-0. [address] [facility] (Lab) [address] [facility], [place], [address], 04/29/2024 06:59:40 04/28/20 24 04/28/2024 CBC W/DIF [...] resul ts are expec roseann. Not Available [facility] (Lab) [address] [facility], [place], [address], 04/29/2024 06:59:40 04/28/20 24 04/28/2024 URIC ACID uric acid 4.8 mg/dL 2.3-6. [address] [facility] (Lab) [address] [facility], [place], [address], 04/29/2024 06:59:41 04/28/20 24 04/28/2024 CMP(C OMPRE HENSI VE METAB OLIC PANEL ) sodium 137 mmol/ L 133-[address] [facility] (Lab) [address] [facility], [place], [address], 04/29/2024 06:59:41 04/28/20 24 04/28/2024 CMP(C OMPRE HENSI VE METAB OLIC PANEL ) potassium 3.7 mmol/ L 3.5-5. [address] [facility] (Lab) [address] [facility], [place], [address], 04/29/2024 06:59:41 04/28/20 24 04/28/2024 CMP(C OMPRE HENSI VE METAB OLIC PANEL ) chloride 102 mmol/ L 98-[address] [facility] (Lab) [address] [facility], [place], [address], 04/29/2024 06:59:41 04/28/20 24 04/28/2024 CMP(C OMPRE HENSI VE METAB OLIC PANEL ) carbon dioxide 24 mmol/ L 21-[address] [facility] (Lab) [address] [facility], [place], [address], 04/29/2024 06:59:41 04/28/20 24 04/28/2024 CMP(C OMPRE HENSI VE METAB OLIC PANEL ) anion gap 11 mmol/ L 4-[address] [facility] (Lab) [address] [facility], [place], [address], 04/29/2024 06:59:41 04/28/20 24 04/28/2024 CMP(C OMPRE HENSI VE METAB OLIC PANEL ) blood urea nitrogen 5 mg/dL 7-25 low Not Available [facility] (Lab) [address] [facility], [place], [address], 04/29/2024 06:59:41 04/28/20 24 04/28/2024 CMP(C OMPRE HENSI VE METAB OLIC PANEL ) creatinine 0.54 mg/dL 0.60-1 [address] [facility] (Lab) [address] [place], [address], 04/29/2024 06:59:41 04/28/20 24 04/28/2024 CMP(C OMPRE HENSI VE METAB OLIC PANEL ) egfrcr (CKD-epi 2020) >90 mL/mi n/1.7 3_m2 >=[address] [facility] (Lab) [address], [place], [address], 04/29/2024 06:59:41 04/28/20 24 04/28/2024 CMP(C OMPRE HENSI VE METAB OLIC PANEL ) calcium 8.9 mg/dL 8.3-[address] [facility] (Lab) [address], [place], [address], 04/29/2024 06:59:41 04/28/20 24 04/28/2024 CMP(C OMPRE HENSI VE METAB OLIC PANEL ) glucose 82 mg/dL 70-[address] [facility] (Lab) [address], [place], [address], 04/29/2024 06:59:41 04/28/20 24 04/28/2024 CMP(C OMPRE HENSI VE METAB OLIC PANEL ) protein, total 6.6 g/dL 6.4-8. [address] [facility] (Lab) [address], [place], [address], 04/29/2024 06:59:41 04/28/20 24 04/28/2024 CMP(C OMPRE HENSI VE METAB OLIC PANEL ) albumin 3.8 g/dL 3.5-5. [address] [facility] (Lab) [address] [facility], [place], [address], 04/29/2024 06:59:41 04/28/20 24 04/28/2024 CMP(C OMPRE HENSI VE METAB OLIC PANEL ) ALT 13 units /L 9-[address] [facility] (Lab) [address], [place], [address], 04/29/2024 06:59:41 04/28/20 24 04/28/2024 CMP(C OMPRE HENSI VE METAB OLIC PANEL ) alkaline phosphatase 83 units /L 34-[address] [facility] (Lab) [address] [facility], [place], [address], 04/29/2024 06:59:41 04/28/20 24 04/28/2024 CMP(C OMPRE HENSI VE METAB OLIC PANEL ) AST 13 units /L 13-[address] [facility] (Lab) [address] [facility], [place], [address], 04/29/2024 06:59:41 04/28/20 24 04/28/2024 CMP(C OMPRE HENSI VE METAB OLIC PANEL ) bilirubin, total 0.3 mg/dL 0.2-1. [address] [facility] (Lab) [address] [facility], [place], [address], 04/29/2024 06:59:41 06/03/20 24 06/03/2024 CMP/C BC/UR IC ACID WBC 9.6 10'3/ uL 3.5-[address] [facility] (Lab) [address] [place], [address], 06/04/2024 04:47:24 06/03/20 24 06/03/2024 CMP/C BC/UR IC ACID RBC 3.85 10'6/ uL (based on docume nted legal sex) 3.80-[address] [facility] (Lab) [address] [facility], [place], [address], 06/04/2024 04:47:24 06/03/20 24 06/03/2024 CMP/C BC/UR IC ACID HGB 12.1 g/dL (based on docume nted legal sex) 11.6-[address] [facility] (Lab) [address] [place], [address], 06/04/2024 04:47:24 06/03/20 24 06/03/2024 CMP/C BC/UR IC ACID HCT 36.4 % (based on docume nted legal sex) 34.0-[address] [facility] (Lab) [address], [place], [address], 06/04/2024 04:47:24 06/03/20 24 06/03/2024 CMP/C BC/UR IC ACID MCV 94.5 fL 80.0-[address] [facility] (Lab) [address] [facility], [place], [address], 06/04/2024 04:47:24 06/03/20 24 06/03/2024 CMP/C BC/UR IC ACID MCH 31.4 pg 27.0-[address] [facility] (Lab) [address] [facility], [place], [address], 06/04/2024 04:47:24 06/03/20 24 06/03/2024 CMP/C BC/UR IC ACID MCHC 33.2 g/dL 32.0-[address] [facility] (Lab) [address] [facility], [place], [address], 06/04/2024 04:47:24 06/03/20 24 06/03/2024 CMP/C BC/UR IC ACID RDW 13.3 % 11.0-[address] [facility] (Lab) [address] [facility], [place], [address], 06/04/2024 04:47:24 06/03/20 24 06/03/2024 CMP/C BC/UR IC ACID plt 291 10'3/ uL 150-[address] [facility] (Lab) [address] [facility], [place], [address], 06/04/2024 04:47:24 06/03/20 24 06/03/2024 CMP/C BC/UR IC ACID MPV 11.8 fL 8.8-[address] [facility] (Lab) [address] [facility], [place], [address], 06/04/2024 04:47:24 06/03/20 24 06/03/2024 CMP/C BC/UR IC ACID NRBC's 0.0 % 0.[address] [facility] (Lab) [address] [facility], [place], [address], 06/04/2024 04:47:24 06/03/20 24 06/03/2024 CMP/C BC/UR IC ACID absolute NRBCs 0.0 10'3/ uL no refere nce range establ ished Not Available [facility] (Lab) [address] [facility], [place], [address], 06/04/2024 04:47:24 06/03/20 24 06/03/2024 CMP/C BC/UR IC ACID neutrophils 77.7 % 34.0-7 3[address] [facility] (Lab) [address] [place], [address], 06/04/2024 04:47:24 06/03/20 24 06/03/2024 CMP/C BC/UR IC ACID lymphocytes 17.0 % 15.0-[address] [facility] (Lab) [address] [place], [address], 06/04/2024 04:47:24 06/03/20 24 06/03/2024 CMP/C BC/UR IC ACID monocytes 4.3 % 1.0-[address] [facility] (Lab) [address] [place], [address], 06/04/2024 04:47:24 06/03/20 24 06/03/2024 CMP/C BC/UR IC ACID eosinophils 0.4 % 0.0-8. [address] [facility] (Lab) [address] [place], [address], 06/04/2024 04:47:24 06/03/20 24 06/03/2024 CMP/C BC/UR IC ACID basophils 0.2 % 0.0-2. [address] [facility] (Lab) [address] [place], [address], 06/04/2024 04:47:24 06/03/20 24 06/03/2024 CMP/C BC/UR IC ACID immature granulocytes 0.4 % no define d refere nce range Not Available [facility] (Lab) [address] [facility], [place], [address], 06/04/2024 04:47:24 06/03/20 24 06/03/2024 CMP/C BC/UR IC ACID absolute neutrophils 7.5 10'3/ uL 1.5-8. [address] [facility] (Lab) [address] [place], [address], 06/04/2024 04:47:24 06/03/20 24 06/03/2024 CMP/C BC/UR IC ACID absolute lymphocytes 1.6 10'3/ uL 1.0-4. [address] [facility] (Lab) [address] [place], [address], 06/04/2024 04:47:24 06/03/20 24 06/03/2024 CMP/C BC/UR IC ACID absolute monocytes 0.4 10'3/ uL 0.2-1. [address] [facility] (Lab) [address] [place], [address], 06/04/2024 04:47:24 06/03/20 24 06/03/2024 CMP/C BC/UR IC ACID absolute eosinophils 0.0 10'3/ uL 0.0-0. [address] [facility] (Lab) [address] [place], [address], 06/04/2024 04:47:24 06/03/20 24 06/03/2024 CMP/C BC/UR IC ACID absolute basophils 0.0 10'3/ uL 0.0-0. [address] [facility] (Lab) [address], [place], [address], 06/04/2024 04:47:24 06/03/20 24 06/03/2024 CMP/C BC/UR [...] resul ts are expec roseann. Not Available [facility] (Lab) [address], [place], [address], 06/04/2024 04:47:24 06/03/20 24 06/03/2024 CMP/C BC/UR IC ACID uric acid 4.8 mg/dL 2.3-6. [address] [facility] (Lab) [address], [place], [address], 06/04/2024 04:47:24 06/03/20 24 06/03/2024 CMP/C BC/UR IC ACID sodium 136 mmol/ L 133-[address] [facility] (Lab) [address] [facility], [place], [address], 06/04/2024 04:47:24 06/03/20 24 06/03/2024 CMP/C BC/UR IC ACID potassium 4.1 mmol/ L 3.5-5. [address] [facility] (Lab) [address] [facility], [place], [address], 06/04/2024 04:47:24 06/03/20 24 06/03/2024 CMP/C BC/UR IC ACID chloride 103 mmol/ L 98-[address] [facility] (Lab) [address], [place], [address], 06/04/2024 04:47:24 06/03/20 24 06/03/2024 CMP/C BC/UR IC ACID carbon dioxide 23 mmol/ L 21- Not Available [facility] (Lab) [address], [place], [address], 06/04/2024 04:47:24 06/03/20 24 06/03/2024 CMP/C BC/UR IC ACID anion gap 10 mmol/ L 4-[address] [facility] (Lab) [address] [facility], [place], [address], 06/04/2024 04:47:24 06/03/20 24 06/03/2024 CMP/C BC/UR IC ACID blood urea nitrogen 9 mg/dL 7-25 Not Available [facility] (Lab) [address], [place], [address], 06/04/2024 04:47:24 06/03/20 24 06/03/2024 CMP/C BC/UR IC ACID creatinine 0.57 mg/dL 0.60-1 .[address] [facility] (Lab) [address] [facility], [place], [address], 06/04/2024 04:47:24 06/03/20 24 06/03/2024 CMP/C BC/UR IC ACID egfrcr (CKD-epi 2020) >90 mL/mi n/1.7 3_m2 >=[address] [facility] (Lab) [address], [place], [address], 06/04/2024 04:47:24 06/03/20 24 06/03/2024 CMP/C BC/UR IC ACID calcium 9.1 mg/dL 8.3-[address] [facility] (Lab) [address] [facility], [place], [address], 06/04/2024 04:47:24 06/03/20 24 06/03/2024 CMP/C BC/UR IC ACID glucose 95 mg/dL 70-[address] [facility] (Lab) [address] [facility], [place], [address], 06/04/2024 04:47:24 06/03/20 24 06/03/2024 CMP/C BC/UR IC ACID protein, total 6.9 g/dL 6.4-8. [address] [facility] (Lab) [address] [facility], [place], [address], 06/04/2024 04:47:24 06/03/20 24 06/03/2024 CMP/C BC/UR IC ACID albumin 3.8 g/dL 3.5-5. [address] [facility] (Lab) [address] [facility], [place], [address], 06/04/2024 04:47:24 06/03/20 24 06/03/2024 CMP/C BC/UR IC ACID ALT 14 units /L 9-[address] [facility] (Lab) [address] [facility], [place], [address], 06/04/2024 04:47:24 06/03/20 24 06/03/2024 CMP/C BC/UR IC ACID alkaline phosphatase 96 units /L 34-[address] [facility] (Lab) [address] [facility], [place], [address], 06/04/2024 04:47:24 06/03/20 24 06/03/2024 CMP/C BC/UR IC ACID AST 12 units /L 13-[address] [facility] (Lab) [address] [facility], [place], [address], 06/04/2024 04:47:24 06/03/20 24 06/03/2024 CMP/C BC/UR IC ACID bilirubin, total 0.3 mg/dL 0.2-1. [address] [facility] (Lab) [address] [place], [address], 06/04/2024 04:47:24 06/03/20 24 06/03/2024 PROTE IN/CR EATIN INE RATIO , URINE creatinine, urine 101.8 mg/dL R-No refer ence range estab lishe d for this assay Not Available [facility] (Lab) [address] [facility], [place], [address], 06/04/2024 04:47:26 06/03/20 24 06/03/2024 PROTE IN/CR EATIN INE RATIO , URINE protein, urine 19 mg/dL R-No refer ence range estab lishe d for this assay Not Available [facility] (Lab) [address] [facility], [place], [address], 06/04/2024 04:47:26 06/03/20 24 06/03/2024 PROTE IN/CR [...] fican t prote inuri a. Not Available [facility] (Lab) [address] [facility], [place], [address], 06/04/2024 04:47:26 07/02/19 25 07/02/2024 HEMOG LOBIN (HGB) HGB 11.8 g/dL (based on docume nted legal sex) 11.6-[address] [facility] (Lab) [address] [facility], [place], [address], 07/03/2024 12:58:59 07/02/19 25 07/02/2024 HEMAT OCRIT (HCT) HCT 34.9 % (based on docume nted legal sex) 34.0-[address] [facility] (Lab) [address] [facility], [place], [address], 07/03/2024 12:58:59 07/02/19 25 07/02/2024 GTT - GESTA KEE L SCREE N, ACOG OB glucose, 1 hour screen 103 mg/dL 70-135 Not Available [facility] (Lab) [address] [facility], [place], [address], 07/03/2024 12:59:00 07/02/19 25 07/02/2024 HIV 1/2 ANTIG EN/AN TIBOD Y, REFLE X CONFI RMATI ON HIV antigen/anti body Nonrea ctive nonrea ctive HIV-1 antig en and HIV-1 /HIV- 2 antib odies were not detec roseann. No labor atory evide nce of HIV infec tion. Not Available [facility] (Lab) [address] [facility], [place], [address], 07/03/2024 12:59:00 07/02/19 25 07/02/2024 RPR SCREE N, REFLE X TITER /CONF IRMAT ION RPR screen Nonrea ctive nonrea ctive Not Available [facility] (Lab) [address] [place], [address], 07/03/2024 12:59:00 05/05/20 24 05/06/2024 US, obste tric, 2nd or 3rd trime ster No observ ation record ed. [email or web address], [place], [address], 05/06/2024 13:02:24 05/05/20 24 05/05/2024 US, obste tric, follo w-up No observ ation record ed. [id number], [place], [address], 05/05/2024 23:01:08 06/02/20 24 05/30/2024 US, obste tric, follo w-up No observ ation record ed. [email or web address] [facility] [address] [facility] [place], [address], 06/06/2024 10:12:25 12/30/20 24 05/30/2024 US, obste tric, follo w-up No observ ation record ed. [address] [facility] [address], [address], 06/05/2024 07:25:53 06/23/19 25 05/30/2024 US, obste tric, follo w-up No observ ation record ed. [address] [facility], [place], [address], 06/27/2024 13:41:49 07/09/19 25 07/09/2024 US, obste tric, bioph ysica l profi le + non-s tress test No observ ation record ed. [email or web address] [facility] [address], [address], 07/10/2024 15:11:21 07/09/19 25 07/09/2024 imagi ng/di agnos tic resul t No observ ation record ed. [address], [address], 07/12/2024 13:08:10 07/09/19 25 07/09/2024 imagi ng/di agnos tic resul t No observ ation record ed. [address], [address], 07/12/2024 13:08:10 Result Notes None recorded. 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 1 11:56:[address] Concept Completed 201706/22/2020 Well woman check w/o abnormal finding; Recorded Elsewher e: No Locat ion: [facility] S ource: [employer] Database Administrator gabi: N Practi ce ID: [id number] Jordi lable Time: 02:45:00 PM Carmen goldberg, [facility] 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 1 11:56:00 Uses combined oral contrace ption [id number] Completed 201706/22/2020 Encounte r for surveill ance of contrace ptive pills;Pr actice ID: [id number] Carmen goldberg, [facility] 1 11:55:58 Hyperten sive disorder 68167265 Active 2022 Praveena goldberg, [facility] 3 14:50:42 Mixed anxiety and depressi ve disorder [id number] Active not treated currentl y Mikael Trujillo MD [address], [place], [address], [facility] 4 15:50:21 Asthma 404326283 Active Praveena goldberg, [facility] 4 15:44:53 Pregnanc y 75566157 Active 2023 Praveena goldberg, [facility] 4 15:44:34 Asthma 605641925 Active Praveena Vinson [facility] 4 15:44:53 [facility] hyperten loly 44967779 Active 38wk delivery 04/28 - 200mg bid [place], bASA 2 tablets daily & MFM consult per SB . MFM follow up schedule d 07/25 US only MFM pt monitor BP at home send weekly log Antental testing @ 32wks Gricel Cabral [facility] 5 15:30:56 Mixed anxiety and depressi ve disorder 379322046 Active not treated currentl y Mikael Trujillo MD [address], [place], [address], [place] [facility] 4 15:50:21 Body mass index 30+ - obesity 655504442 Active weekly antenata l testing at 37wks Shazia Noyola [facility] 5 22:17:44 Body mass index 30+ - obesity 024821322 Active weekly antenata l testing at 37wks Shazia Noyola [facility] 5 22:17:44 Pre-ecla mpsia 005062085 Active PCR .60 Shazia Noyola [facility] 5 12:08:48 Problem Notes None recorded. Procedures Surgical History Date Name Laterality Status Provider Name and Address Organization Details Recorded Time 4 Date of Last Pap Smear completed Praveena Vinson [facility] 02/11/2024 14:41:19 1 extraction of wisdom tooth completed Praveena Vinson [facility] 06/08/2022 14:51:58 Imaging Results Imaging Date Name Status LastModified by Organiz ation Details LastModified Time 05/06/2024 US, obstetric, 2nd or 3rd trimester completed [email or web address] [facility] [address], [place], [address], 05/06/2024 13:02:24 05/05/2024 US, obstetric, follow-up completed [email or web address] [address], [place], [address], 05/05/2024 23:01:08 05/30/2024 US, obstetric, follow-up completed [email or web address] [facility] [address], [address], 06/06/2024 10:12:25 05/30/2024 US, obstetric, follow-up completed [facility] [address], [address], 06/05/2024 07:25:53 05/30/2024 US, obstetric, follow-up completed [email or web address] [facility] [address] , [place], [address], 06/27/2024 13:41:49 07/09/2024 US, obstetric, biophysical profile + non-stress test completed [address], [address], 07/10/2024 15:11:21 07/09/2024 imaging/diagnos tic result active [address], [address], 07/12/2024 13:08:10 07/09/2024 imaging/diagnos tic result active [email or web address] [facility] [address], [address], 07/12/2024 13:08:10 Procedure Notes None recorded. Medical Equipment None Reported. Allergies Allergen ID Allergen Name Allergen Category Reaction Reaction Severity Criticality Documentation Date Start Date Code Code System Note Provider Name and Address Organization Details Recorded Time 95416 vancomyci n medicatio n Not available Not available Not available 02/11/2024 42258 RxNohelena Vinson [facility] 4 14:46:41 Medications Name Sig Start [...] Address Organization Details Last Updated DateTime 05/05/2024 436597.799 32 g 165 mm[Hg] 110 mm[Hg] [facility] 05/05/2024 16:49:40 Date Recorded Body weight Systolic blood pressure Diastolic blood pressure Provider Name and Address Organization Details Last Updated DateTime 05/19/2024 832180.984 06 g 167 mm[Hg] 99 mm[Hg] [facility] 05/19/2024 16:31:59 Date Recorded Body weight Body mass index (BMI) Body height Systolic blood pressure Diastolic blood pressure Provider Name and Address Organization Details Last Updated DateTime 06/03/2024 693652.3 5354 g 37.9 kg/m2 170.18 cm 144 mm[Hg] 93 mm[Hg] Andreina Harris [facility] 4 09:35:34 Date Recorded Body weight Body mass index (BMI) Body height Systolic blood pressure Diastolic blood pressure Systolic blood pressure Diastolic blood pressure Systolic blood pressure Diastolic blood pressure Provider Name and Address Organization Details Last Updated DateTime 5 243216. 35109 g 39 kg/m2 170.18 cm 165 mm[Hg] 116 mm[Hg] 166 mm[Hg] 112 mm[Hg] 152 mm[Hg] 108 mm[Hg] Andreina Steven [facility] 5 17:09:52 Social History Question Answer Notes LastModified by Organizat ion Details LastModified Time Tobacco Smoking Status Never Smoker Praveena goldberg, [facility] 07/05/2022 10:29:23 Do You Have An Advance Directive? No [email or web address] Information n ot available 11/02/2020 What Is Your Level Of Alcohol Consumption? None [email or web address] Information not available 06/22/2020 Are You Blind Or Do You Have Difficulty Seeing? No [email or web address] Information n ot available 11/02/2020 What Is Your Level Of Caffeine Consumption? Occasional [email or web address] Information not available 06/22/2020 How Much Tobacco Do You Chew? None [email or web address] Information not available 11/02/2020 In The 14 Days Before Symptom Onset, Have You Had Close Contact With A Laboratory-confirm ed COVID-19 While That Case Was Ill? No [email or web address] Information n ot available 11/02/2020 In The 14 Days Before Symptom Onset, Have You Had Close Contact With A Person Who Is Under Investigation For COVID-19 While That Person Was Ill? No Information not available 11/02/2020 Have You Been To An Area Known To Be High Risk For COVID-19? No [email or web address] Information not available 11/02/2020 Are You Deaf Or Do You Have Serious Difficulty Hearing? No [email or web address] Information not available 11/02/2020 What Type Of Diet Are You Following? REGULAR [email or web address] Information n ot available 11/02/2020 What Is The Highest Grade Or Level Of School You Have Completed Or The Highest Degree You Have Received? 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 Na [email or web address] Information not available 11/02/2020 Are There Any Guns Present In Your Home? Yes Information not available 11/02/2020 Do You Use Protection During Sex? No [email or web address] Information not available 02/11/2024 Do You Use Your Seat Belt Or Car Seat Routinely? Yes [email or web address] Information not available 11/02/2020 Do You Have Smoke And Carbon Monoxide Detectors In Your Home? Yes [email or web address] Information not available 11/02/2020 How Much Tobacco Do You Smoke? No [email or web address] Information not available 11/02/2020 Do You Feel Stressed (tense, Restless, Nervous, Or Anxious, Or Unable To Sleep At Night)? [id number] [email or web address] Information not available 11/02/2020 Do You Use Any Illicit Or Recreational Drugs? No Information not available 06/22/2020 Do You Use Sunscreen Routinely? Yes [email or web address] Information not available 11/02/2020 Has Tobacco Cessation Counseling Been Provided? No [email or web address] Information not available 07/05/2022 Have You Used IV Drugs? No [email or web address] Information not available 11/02/2020 Do You Or Have You Ever Used Any Other Forms Of Tobacco Or Nicotine? No [email or web address] Information not available 07/05/2022 Sex: Unknown Functional Status Question Answer Note LastModified by Organizat ion Details LastModified Time Do you have difficulty walking or climbing stairs? No [email or web address] Information not available 07/05/2022 Are you able to walk? YESWOREST [email or web address] Information not available 11/02/2020 Are you able to care for yourself? Yes [email or web address] Information not available 07/05/2022 Do you have difficulty dressing or bathing? No Information not available 07/05/2022 What is your exercise level? Occasional [email or web address] Information not available 06/22/2020 Mental Status None recorded. Family History Relationship Description Onset Age of this Age Resolved Age Notes LastModified by Organization Details LastModified Time Father No current problems or disability [email or web address] Not available 06/22 11:56:45 Mother No current problems or disability [email or web address] Not available 06/22 11:56:45 Medical History Condition Response Other N Blood Transfusion N Dermatologic Disorders N Gestational Diabetes N Anxiety Disorder Y Autoimmune disease N Arthritis N Polyps N Infertility N Acid Reflux (GERD) N Cancer N Varicosities N Stroke N Neurologic/Epilepsy N Fibromyalgia N Headaches N Kidney Disease N Heart Problems Y Kidney or Bladder Problems N Eating Disorder N Art (IVF or FET) N Hepatitis/Liver Disease N Urinary Tract Infection N Asthma Y Trauma/Violence N Thrombophilias N Allergies (Food, seasonal, environmental ) Y Breast Cancer N Drug/Latex Allergies/Reactions N Lung Disease N Defects or Inherited Disease N Breast Problem N Hematologic disorders N Anesthesia Complications N History of STI N Deep Vein Thrombosis N Polycystic ovary syndrome N History of abnormal pap N Endometriosis N High Cholesterol N Thyroid Problems N GI Problems N Anemia N Psychiatric Illness N Ovarian Cancer N Diabetes N Pulmonary (TB, Asthma) N Eczema N Abuse/Domestic Violence N Depression/ depression Y Heart Disease N Pre-Eclampsia N Hypertension Y Osteoporosis N Gynecological History Statement/Question Response Date [...] SNOMED-CT Code Diagnosis ICD10 Code Diagnosis Note 18798 Rocío Edmonds [facility] [address] [address] 06/22/2020 14:02:32 06/22/2020 15:04:44 Surveillance of contraception 426067500 Z30.40 Pt would like to restart ocp. [...] and signed. Pt verbalized understand ing. Vaginitis 06553357 N76.0 Discussed use of mild soap like [...] exposure to the Covid-19 virus during this patient s visit, including available hand gauge operator upon arrive, temperatur e check and being asked a series of screening questions. All staff wore face coverings during this encounter, as well as provided additional cleaning and sanitizing of all surfaces, including countertop s, pens, chairs, door handles, light switches, etc, prior to and following the patient s visit. [address]3081 Rocío Panyik [facility] [address] [address] 07/26/2020 14:14:39 07/26/2020 14:58:29 Vaginitis 41564233 N76.0 Discussed use of mild soap like [...] exposure to the Covid-19 virus during this patient s visit, including available hand gauge operator upon arrive, temperatur e check and being asked a series of screening questions. All staff wore face coverings during this encounter, as well as provided additional cleaning and sanitizing of all surfaces, including countertop s, pens, chairs, door handles, light switches, etc, prior to and following the patient s visit. Contracept ion care management 792136655 Z30.9 Elevated blood pressure today. Pt states [...] Elevated blood-pressure reading without diagnosis of hypertension 624341551 R03.0 Pt will call pcp for further evaluation . Discussed heart healthy diet and exercise. 79174 Rocío Edmonds [facility] [address] [address] 10/18/2020 13:57:16 10/18/2020 14:16:26 Surveillance of oral contraception 016038941 Z30.41 Pt happy with new pill and would like to continue. 76726 Shraddha George [facility] [address] [address] 11/02/2020 12:00:56 11/02/2020 13:27:10 Vaginitis 81432493 N76.0 65884 Tamara Menon [facility] [address] [place] [address] 12/16/2020 09:25:26 12/16/2020 11:02:32 Increased frequency of urination 676245326 R35.0 18945 Ingrid Khanna MD [facility] [address] [place] [address] 07/26/2021 11:44:20 07/26/2021 12:24:34 Urinary tract infectious disease 96562903 N39.0 Dysuria 29743630 R30.9 Initial pr escription of oral contraception 024598194 Z30.011 03321 Ingrid Khanna MD [facility] [address] [address] 08/30/2021 09:55:58 08/30/2021 10:30:52 Surveillance of oral contraception 979813365 Z30.41 [id number] Praveena Vinson [facility] [address],[place] [address] 06/08/2022 14:03:05 06/08/2022 15:00:16 Dysuria 37628988 R30.0 Urinary tr act infectious disease 12040515 N39.0 [id number] Rocío Edmonds [facility] [address] [address] 06/20/2022 10:45:43 06/20/2022 11:46:08 test positive 454475072 Z32.01 Risk factors addressed: Tobacco Cessation, Safe [...] annual well woman examinatio n and address [place] . [id number] Nancy Fowler [facility] [address],[place] [address] 06/20/2022 10:45:14 06/20/2022 11:28:10 screening 736857747 Z36.87 [id number] Ev Arenas [facility] [address],[place] [address] 06/23/2022 10:57:34 06/23/2022 13:08:25 Dysuria 63611060 R30.0 Pt here for dysuria and feeling [...] meantime. Pt verbalized understand ing. LEFTY tracy [id number] Nancy [facility] [address],[place] [address] 07/05/2022 09:57:49 07/05/2022 13:33:51 Missed miscarriage 36556205 O02.1 Z3A.01 [id number] [facility] [address] [address] 07/05/2022 10:29:08 07/05/2022 11:35:56 Missed miscarriage 09430730 O02.1 Acute urin yasmin tract infection 855056104 N39.0 increase water, urine for culture [id number] [facility] [address],[place] [address] 07/21/2022 15:42:41 07/24/2022 16:14:04 Miscarriage without complication 15982180 O03.9 Z3A.00 [id number] [facility] [address],[place] [address] 07/28/2022 15:31:42 07/28/2022 16:29:33 Retained products of conception 919589579 O02.1 Z3A.00 [id number] Mikael Trujillo MD [facility] [address],[place] [address] 08/07/2022 10:02:26 08/07/2022 16:40:25 Retained products of conception 313022502 O02.1 Z3A.00 22-year-ol d female with persistent [...] high. It was 55 two weeks ago. [id number] [facility] [address],[place] [address] 02/11/2024 13:39:54 02/11/2024 14:20:51 [id number] Mikael Trujillo MD [facility] [address],[place] [address] 02/11/2024 13:41:01 02/12/2024 14:00:34 Amenorrhea 72396580 N91.2 this patient is a 23-year-ol d [...] begin routine care at her next visit. [id number] [facility] [address],[place] [address] 03/10/2024 14:45:06 03/10/2024 15:17:27 screening 547849806 Z36.82 Z3A.11 [id number] Praveena Vinson [facility] [address] [address] 03/10/2024 14:45:28 03/10/2024 16:04:58 Routine care 442782150 Z34.90 Gestation period, 11 weeks 21290164 Z3A.11 [id number] Mikael Trujillo MD [facility] [address],[place] [address] 04/10/2024 16:16:46 04/10/2024 17:30:34 Routine care 782039302 Z34.90 [id number] Mikael Trujillo MD [facility] [address],[place] [address] 04/14/2024 13:50:00 04/14/2024 14:42:58 [id number] Praveena Vinson [facility] [address],[place] [address] 04/28/2024 14:09:15 04/29/2024 10:04:44 Hypertensive disorder 82480095 I10 [id number] Nancy Fowler [facility] [address] [address] 05/05/2024 15:24:47 05/05/2024 16:56:18 screening for malformation 322060645 Z36.3 Z3A.19 [id number] Mikael Trujillo MD [facility] [address],[place] [address] 05/05/2024 15:25:15 05/06/2024 06:17:49 Routine care 743472601 Z34.90 [id number] Mikael Trujillo MD [facility] [address],[place] [address] 05/19/2024 15:49:02 05/19/2024 17:10:47 Routine care 415353376 Z34.90 [id number] MD Kalin Pritchard [address] [address] 06/03/2024 09:25:28 06/03/2024 10:21:42 Routine care 537964277 Z34.90 Pre-eclampsia 206198793 O14.92 [id number] Mikael Trujillo MD [facility] [address] [address] 07/02/2024 16:11:40 07/03/2024 09:52:16 Routine care 397848606 Z34.90 Health Concerns Section Related Observation LastModified by Organization Detai ls LastModified Time None Recorded Concern Status LastModified by Organization Details LastModified Time None Recorded Advance Directives Directive N: Payers Encounter Date Sequence Insurance Name Policy Number Policy Pickard Covered Member ID Pickard Member ID Guarantor Name 05/05/2024 1 [facility] [id number] Ashley Hall [id number] Ashley Hall 05/05/2024 1 [facility] [id number] Ashley Hall [id number] Ashley Hall 05/19/2024 1 [facility] [id number] Ashley Hall [id number] Ashley Hall 06/03/2024 1 [facility] [id number] Ashley Hall [id number] Ashley Hall 07/02/2024 1 [employer] [id number] Ashley Hall [id number] Ashley Hall OBGyn Episode Ob Episode Information Episode Created Date Number of Fetuses Patient Bloodtype Patient rh Status Prepregnancy Weight lbs Domestic Partner Domestic Partner Phone Father Name Multicultural Services Librarian Status 07/05/19 23 1 CLOSED Fetus Data First Name Last Name Admitted to NICU Weight (g) Sex Living Outcome Pediatric Complications Fetus ID Race Codes Race Delivery Type , Spontane ous [id number] Leon Calculation Initial Leon Date Initial Exam [...] Domestic Partner Domestic Partner Phone Father Name Multicultural Services Librarian Status 03/10/20 24 1 A Positive 236 Darlene Foster OPEN Fetus Data First Name Last Name Admitted to NICU Weight (g) Sex Living Outcome Pediatric Complications Fetus ID Race Codes Race Delivery Type [id number] Problems Problem Notes testing at 32wksLe gina II US Abdomen portal vein prominent measuring 6mm2/10/26 PT TRANSFER CARE TO [facility] HIGH RISK Problem Name Start Date End Date Resolution Snomed Code Not e Essential hypertension 0169601 0 38wk delivery 04/28 - 200mg bid Labetalol, bASA 2 tablets daily & MFM consult per SB . [facility] follow up scheduled 07/25 [facility] pt monitor BP at home send weekly logAntental testing @ 32wks Body mass index 30+ - obesity 689299392 weekly antenata l testing at 37wks Pre-eclampsia 127520806 PCR .6 0 Asthma 079301553 Mixed anxiety and depressive disorder 010933141 wendy whitfield currently Leon Calculation Initial Leon [...] Weight in lbs Pre/Post Dialysis Refused Weight 238.454427453495 BP Diastolic BP Location Tested BP Systolic [...] Type Weight in lbs Pre/Post Dialysis Refused 236.866624588765 BP Diastolic BP Location Tested BP Systolic [...] Type Weight in lbs Pre/Post Dialysis Refused 237.445596445733 BP Diastolic BP Location Tested BP Systolic [...] Type Weight in lbs Pre/Post Dialysis Refused 236.524640075788 BP Diastolic BP Location Tested BP Systolic [...] pressure check and to do referral to [facility]. Flowsheet Date 04/29/2024 Guillaume Score Blood Edema [...] Type Weight in lbs Pre/Post Dialysis Refused 236.149270407798 BP Diastolic BP Location Tested BP Systolic [...] Type Weight in lbs Pre/Post Dialysis Refused 238.442673775206 BP Diastolic BP Location Tested BP Systolic [...] Type Weight in lbs Pre/Post Dialysis Refused 242.315403749958 BP Diastolic BP Location Tested BP Systolic [...] Type Weight in lbs Pre/Post Dialysis Refused 249.174107213608 BP Diastolic BP Location Tested BP Systolic BP Type 116 L arm 165 sitting 112 R arm 166 sitting 108 L arm 152 sitting Fetus Heart Rate Present Fetus Movement A Yes Comments severe range blood pressures in the office, sent to labor and delivery, better blood pressures there, increased her labetalol there to 400 and she is being observed at this time. No headaches, no blurry vision, no epigastric pain. Good movement. We talked about MFM consult. She has established care with MFM, she needs to go back for preeclampsia management. Menstrual History Last Menstrual Date Menses Monthly [...]
--- OUTSIDE RECORDS SUMMARY | 2024-07-13 21:52 | XMS_ITS | Encounter Summary ---
Author Organization [facility] Health Address [address] [place], [place] [address] [address] Care Team Providers Care Rn Clinical Research Name Role Phone Unavailable Primary Care Provider Unavailabl e Reason for Visit * Reason Onset Date Comments Appointment 07/10/2024 Encounter Details Date Type Department Care Team (Late st Contact Info) Description 07/10/2024 Telephone [facility] - SUPPORT ASSOCIATE [address] [facility] [address] [place] [address] Dev Kunz DO [address] [facility] [address] [place] [address] Appointment Social History Tobacco Use Types Packs/Day Years [...] on file Sexual Orientation Not on file documented as of this encounter Miscellaneous Notes * Telephone Encounter - Pretty Ravi RN - 07/10/2024 10:00 AM CST From Shayla Roy at [facility]: Referral Max! This patient is a newly diagnosed preeclamptic patient and is wanting to self transfer her care to [facility]. Appt made and pt notified via [employer] UATION ENGINEER * Telephone Encounter - Pretty Ravi RN - 07/10/2024 9:57 AM CST ----- Message from Clinical Roof Fixer Talita sent at 07/10/2024 9:53 AM EVALUATION ENGINEER ----- Regarding: RE: BPP/NST She is scheduled. ----- Message ----- From: Pretty Ravi RN Sent: 07/10/2024 9:35 AM EVALUATION ENGINEER To: Talita Bird Subject: RE: BPP/NST That;s fine because she will need an NST afterwards ----- Message ----- From: Talita Bird Sent: 07/10/2024 9:33 AM EVALUATION ENGINEER To: Pretty Ravi RN Subject: RE: BPP/NST I only have a 7:30 on the . ----- Message ----- From: Pretty Ravi RN Sent: 07/09/2024 12:25 PM EVALUATION ENGINEER To: [facility] Staff Msg Pool Subject: BPP/NST Could I please get a BPP/NST on 07/23 please. I have a NOB at 10 available. Thanks! UATION ENGINEER documented in this encounter Plan of Treatment Upcoming Encounters Date Type Department Care Team (Late st Contact Info) Description 07/16/2024 1:00 PM EVALUATION ENGINEER Appointment [facility] [address] [place] [address] 07/16/2024 2:30 PM EVALUATION ENGINEER Hospital Encounter [facility] [address] [place] [address] 07/23/2024 7:30 AM EVALUATION ENGINEER Appointment [facility]/ EVALUATION UNIT [address] [place] [address] 07/23/2024 8:45 AM EVALUATION ENGINEER Appointment [facility]/ EVALUATION UNIT [address] [place] [address] 07/23/2024 10:00 AM EVALUATION ENGINEER visit [facility] - SUPPORT ASSOCIATE [address] [place] [address] 07/25/2024 1:00 PM EVALUATION ENGINEER Hospital Encounter [facility] [address] [place] [address] documented as of this encounter Visit Diagnoses Not on filedocumented in this encounter
--- OUTSIDE RECORDS SUMMARY | 2024-07-13 21:52 | XMS_ITS | Referral Summary ---
Author Organization [facility] Address [address] [place] [address] Care Team Providers Care Social Service Agency Director Name Role Phone Unavailable Primary Care Provider Unavailabl e Source Comments [facility],non-owned Affiliates and Associated Physician Practices is amultiple site organization consisting of ambulatory clinics and hospital sitesin [place], [place], [place] and [place]. This disclosure is being madepursuant to the Care Everywhere program and may not contain all information available regarding this patient. Last updated 18.[facility] Encounters Date Type Department Care Team Description 07/10/2024 Telephone [facility] - MANUFACTURING PRODUCTION TECHNICIAN [address] [facility] [address] [place] [phone] Dev Kunz DO Appointment 07/09/2024 11:11 AM SKIAGRAPHER - 07/09/2024 11:59 PM SKIAGRAPHER [facility] [address] [place] [address] [phone] Nacho Shirley MD Discharge Disposition: Home or Self Care 07/04/2024 Telephone [facility] [address] [place] [address] [phone] Juhi Whitmore RN Future Appointment (Called patient to schedule for FU OIL WELL SERVICE OPERATOR HELPER appt with [facility] offfice per primary OB office. Shazia reports they are sending Comanage order for patient elevated blood pressures/pre eclampsia. ) 07/04/2024 Travel 07/04/2024 Telephone [facility] [address] [place] [phone] Juhi Whitmore RN Future Appointment (Michela and Shazia from [facility] left messages regarding patient update and appt needed.) 06/27/2024 1:00 PM SKIAGRAPHER - 06/27/2024 11:59 PM SKIAGRAPHER Hospital [facility] [address] [place] [address] Jorden West MD MANUFACTURING PRODUCTION TECHNICIAN Discharge Disposition: Home or Self Care 05/30/2024 Travel 05/30/2024 9:00 AM SKIAGRAPHER - 05/30/2024 11:59 PM SKIAGRAPHER [facility] [address] [place] [address] Philly Bradford MD Discharge Disposition: Home or Self Care 05/30/2024 8:15 AM SKIAGRAPHER - 05/30/2024 8:59 AM [facility] Hospital Encounter [facility] [address] [place] [phone] Philly Bradford MD Discharge Disposition: Home or Self Care 05/06/2024 Telephone [facility] [address] [place] [address] [phone] Nereida Pérez Appointment (LM for pt to C/S appt) from Last 3 Months Allergies Active Allergy Reactions Criticality Noted Date Comments Vancomycin Rash High 05/31/2024 Medications * Be aware that medications may not be up to date on this document. Alwaysverify current medications with the patient. Medication Sig Dispensed Refills Start Date End Date Status labetalol (Normodyne; Trandate) 200 MG tabletIndications:Hyp ertension Take 2 (two) tablets by mouth every 12 hours Reasons: High Blood Pressure Active Vit-DSS-Fe Fum-FA ( vitamin with iron) tablet Take 1 (one) tablet by mouth once daily Active aspirin EC (Ecotrin) 81 MG tablet Take 2 (two) tablets by mouth once daily Active Active Problems Problem Noted Date Diagnosed Date Chronic hypertension with superimposed preeclamp brandie 07/09/2024 Second 07/09/2024 Hypertension complicating 05/31/2024 BMI 38.0-38.9,adult 05/31/2024 Obesity in , antepartum, third trimeste r 05/31/2024 Stem cell donor 06/01/2020 Estimated Date [...] Comments Blood Pressure 134/92 07/09/2024 11:32 AM SKIAGRAPHER Pulse 84 07/09/2024 11:32 AM SKIAGRAPHER Temperature 37 C (98.6 F) 06/10/2020 4:54 PM SKIAGRAPHER Respiratory Rate 18 06/10/2020 7:10 PM SKIAGRAPHER Oxygen Saturation 100% 06/10/2020 7:10 PM SKIAGRAPHER Inhaled Oxygen Concentration - - Weight 113.5 kg (250 lb 3.2 oz) 025 11:32 AM SKIAGRAPHER Height 170.2 cm (5' 7 ) 05/30/2024 9:16 AM SKIAGRAPHER Body Mass Index 39.19 05/30/2024 9:16 AM SKIAGRAPHER Plan of Treatment Upcoming Encounters Date Type Department Care Team (Late st Contact Info) Description 07/16/2024 1:00 PM SKIAGRAPHER Appointment [facility] [address] [place] [phone] 07/16/2024 2:30 PM SKIAGRAPHER Hospital [facility] [address] [place] [phone] 07/23/2024 7:30 AM SKIAGRAPHER Appointment [facility] [address] [place] [address] 07/23/2024 8:45 AM SKIAGRAPHER Appointment [facility] [address] [place] [address] 07/23/2024 10:00 AM SKIAGRAPHER visit [facility] - MANUFACTURING PRODUCTION TECHNICIAN [address] [place] [address] 07/25/2024 1:00 PM SKIAGRAPHER Hospital [facility] [address] [place] [phone] Procedures Procedure Name Priority Date/Time Associated Diagnosis Comments BIOPHYSICAL PROFILE W NST Routine 07/09/2024 12:11 PM SKIAGRAPHER Hypertension affecting in third trimester (HCC) BMI 38.0-38.9,adult Second (HCC) Obesity in , antepartum, third trimester (HCC) SONOGRAM - COMPLETE Routine 06/27/2024 1 :04 PM SKIAGRAPHER BMI 38.0-38.9,adult Chronic hypertension affecting (HCC) 26 weeks gestation of (HCC) Obesity affecting in second trimester, unspecified obesity type (HCC) Hypertension affecting in second trimester (HCC) SONOGRAM - COMPLETE Routine 05/30/2024 8 :20 AM SKIAGRAPHER Chronic hypertension affecting (HCC) Second (HCC) 23 weeks gestation of (HCC) from Last 3 Months Results * BIOPHYSICAL PROFILE W NST (07/09/2024 12:11 PM SKIAGRAPHER) Linked Results Indication ======== Chronic Hypertension, on [...] NST at 32 weeks Coding ====== Procedures 28841: Biophysical Profile W NST 58022: US Uterus Limited Cortexyme PACS Anatomical Region Laterality Modality Other 07/09/2024 12:1 1 PM SKIAGRAPHER R Domingo Trujillo MD [facility] ORDERABLES * SONOGRAM - COMPLETE (06/27/2024 1:04 PM SKIAGRAPHER) Only the most recent of2 resultswithin the [...] 2 lb 8 oz EFW by Hadlock ([id number]-FL) appropriate Growth Overview Exam date [place] BPD [...] Heart / Thorax 4-chamber view. 3-vessel view. 2-mkwhjs-hzqoelg view. Abdomen Cord insertion. Stomach. Kidneys. Bladder. [...] (or sooner as indicated) Coding ====== Procedures 33952: US Preg Uterus Follow Up Cortexyme PACS Anatomical Region Laterality Modality Other 06/27/2024 1:04 PM SKIAGRAPHER Jorden West MD [facility] ORDERABLES from Last 3 Months DEV HALL Personal/Famil y Father 1974 [address] [facility] Ashley Hall Personal/Famil y Self 2000 Dev Hall Personal/Famil y Father 1974 TIFFANY HALL Personal/Famil y Grandmother 1949
--- OUTSIDE RECORDS SUMMARY | 2024-07-13 21:52 | XMS_ITS | Data Portability ---
[facility] [address] [place] [address] Care Team Providers Care Claims Adjustor Name Role Phone ERNST ALEXANDER Primary Care Provider [phone] Assessment No assessment recorded. Plan of Treatment Reminders Order Date Submit Date Provider Last Modified By Organization Details Last Modified Time Details Appointments None recorded. Lab None recorded. Referral None recorded. Procedures None recorded. Surgeries None recorded. Imaging None recorded. Medication Orders Bactrim DS 800 mg-160 [facility] tablet [facility] [place], [address], 1 18:07:50 mupirocin calcium 2 % topical cream 2019 021 [facility] [address] [place], [address], 1 18:16:48 Patient TargetsNo targets recorded. Patient InstructionsNo instructions recorded. Reason for Referral None Reported. Problems Name Problem SNOMED Code Status Onset Date Resolution Date Notes Provider Name and Address Organization Details Recorded Time Anterior knee pain 153821288 Active Karely Medellin MA null, [facility] 6 15:32:44 Problem Notes None recorded. Procedures Surgical History Date Name Laterality Status Provider Name and Address Organization Details Recorded Time 06/04/2016 endoscopy completed Sandy Godoy MA [facility] 04/23/2020 15:38:06 Imaging Results None recorded. Procedure [...] Available Not Available Not Available Afluria Qd 2019- (36 mos up)(PF)60 mcg (15 mcg x4)/0.5 mL IM syringe ADM 0.5ML IM UTD 01/27 completed Not Available Not Available Not Available Vitals Date Recorded Body height Body mass index (BMI) Body mass index (BMI) Percentile per age and sex Body weight Oxygen saturation Oxygen saturation in Arterial blood by Pulse oximetry Heart rate Systolic blood pressure Diastolic blood pressure Provider Name and Address Organization Details Last Updated DateTime 9 165.1 cm 32.6 kg/m2 97 % 53057.1 g 98 % 98 % 85 /min 126 mm[Hg] 84 mm[Hg] Karely Medellin [place] - [facility] 9 10:45:51 Date Recorded Body height Body mass index (BMI) Body mass index (BMI) Percentile per age and sex Body weight Oxygen saturation Oxygen saturation in Arterial blood by Pulse oximetry Heart rate Systolic blood pressure Diastolic blood pressure Provider Name and Address Organization Details Last Updated DateTime 9 166.37 cm 32.3 kg/m2 96 % 10160.7 g 97 % 97 % 95 /min 144 mm[Hg] 86 mm[Hg] Karely Medellin [place] [facility] 9 14:11:49 Date Recorded Body height Body mass index (BMI) Percentile per age and sex Body mass index (BMI) Body weight Body temperature Oxygen saturation Oxygen saturation in Arterial blood by Pulse oximetry Heart rate Systolic blood pressure Diastolic blood pressure Provider Name and Address Organization Details Last Updated DateTime 0 166.37 cm 96 % 32.2 kg/m2 74671.5 g 98.2 [degF] 99 % 99 % 90 /min 144 mm[Hg] 100 mm[Hg] Karely Medellin [place] - [facility] 0 15:00:09 Date Recorded Body height Body temperature Oxygen saturation Oxygen saturation in Arterial blood by Pulse oximetry Heart rate Body mass index (BMI) Body mass index (BMI) Percentile per age and sex Body weight Systolic blood pressure Diastolic blood pressure Provider Name and Address Organization Details Last Updated DateTime 0 166.37 cm 97.6 [degF] 99 % 99 % 103 /min 32.5 kg/m2 96 % 02355.6 9 g 158 mm[Hg] 100 mm[Hg] Sandy Godoy MA [facility] 0 15:41:44 Date Recorded Body height Body temperature Oxygen saturation Oxygen saturation in Arterial blood by Pulse oximetry Body mass index (BMI) Body mass index (BMI) Percentile per age and sex Body weight Systolic blood pressure Diastolic blood pressure Provider Name and Address Organization Details Last Updated DateTime 1 166.37 cm 98.2 [degF] 98 % 98 % 35.1 kg/m2 97 % 96984.7 7 g 130 mm[Hg] 98 mm[Hg] aSndy Godoy MA [facility] 1 18:12:23 Date Recorded Heart rate Provider Name an d Address Organization Details Last Updated DateTime 01/27/2021 93 /min ARLETH Vincent Attn: Accounting,[address] [place], [address], [facility] 01/27/2021 18:49:17 Social History Question Answer Notes LastModified by Organizat ion Details LastModified Time Tobacco Smoking Status Never Smoker Lucia Hernandez MA [facility], [facility] 05/06/2014 10:25:55 What Is Your Level Of [...] Anxious, Or Unable To Sleep At Night)? [id number] Information not available 01/27/2021 Do You Use [...] Response Coronary Artery Disease N Other N Atrial Fibrillation N High Blood Pressure N Kidney or Bladder Problems N Thyroid Problems N GI Problems N Depression N COPD N Blood Clots N Skin Problems N Anemia N Heart Attack ([place]) N Anxiety Disorder N Diabetes N Muscle, [...] 12/13/2018 17:51:10 Hep B, unspecified formulation 1 CHELITA [place], [place] - [facility] 12/13/2018 17:51:20 DTaP, unspecified formulation 1 [place] [facility] 12/13/2018 17:51:36 DTaP, unspecified formulation 1 [place] [facility] 12/13/2018 17:51:42 DTaP, unspecified formulation 1 [place] [facility] 12/13/2018 17:51:50 DTaP, unspecified formulation 2 [place] [facility] 12/13/2018 17:52:02 DTaP, unspecified [...] 12/13/2018 17:53:07 pneumococcal, unspecified formulation 1 completed [place] [facility] 12/13/2018 17:53:19 pneumococcal, unspecified formulation 1 completed GeorgetteCHELITA [place] [facility] 12/13/2018 17:53:26 pneumococcal, unspecified formulation 2 completed [place] [facility] 12/13/2018 17:53:31 MMR 2 completed Georgettesirisha SolitarioCHELITA [place] [facility] 12/13/2018 17:53:46 MMR 6 completed [place] [facility] 12/13/2018 17:53:56 varicella 2 completed Georgettesirisha SolitarioCHELITA [place] [facility] 12/13/2018 17:54:08 Hep A, unspecified formulation 7 [place] [facility] 12/13/2018 17:54:38 HPV, unspecified formulation 2 completed Georgettesirisha Solitariories CHEL[place], [place] - [facility] 12/13/2018 17:54:58 meningococcal ACWY, unspecified formulation 2 completed Georgette Mathews [place], [place] [facility] 12/13/2018 17:55:14 Meningococcal MCV4O 8 completed Not Available [facility] 06/21/2019 02:35:26 meningococcal B, OMV 0 completed CHELITA [place] [facility] 01/13/2020 16:27:05 Hep A, unspecified formulation 1 completed Karely [place] [facility] 08/10/2017 17:28:14 HPV, unspecified formulation 4 completed [place] [facility] 08/10/2017 17:28:32 HPV, unspecified formulation 5 completed HCELITA [place] [facility] 08/10/2017 17:28:45 Influenza, split virus, quadrivalent, preservative 7 completed [place] [facility] 08/10/2017 17:29:05 meningococcal ACWY, unspecified formulation 2 completed [place] [facility] 08/10/2017 17:29:22 Tdap 1 [place] [facility] 08/10/2017 17:29:40 varicella 1 completed [place] [facility] 08/10/2017 17:30:06 Past Encounters Encounter ID Performer Location Encounter Start Date Encounter Closed Date Diagnosis/Indication Diagnosis SNOMED-CT Code Diagnosis ICD10 Code Diagnosis Note [id number] [facility] [address] [place] [address] 05/06/2014 10:22:40 05/07/2014 17:07:00 Well child [id number] Vonnie Page [facility] [address] [place] [address] 01/13/2015 14:18:27 01/13/2015 15:15:01 Well child [id number] Alexander Jimenez PA-C [facility] [address] [place] [address] 04/20/2015 11:21:39 04/20/2015 12:11:40 Anterior knee pain 172938271 M25.569 [id number] Alexander Jimenez PA-C [facility] [address] [place] [address] 06/18/2015 16:33:21 06/22/2015 10:00:14 Anterior knee pain 571971929 M25.561 [id number] Alexander Jimenez PA-C [facility] [address] [place] [address] 07/02/2015 16:55:09 07/02/2015 17:40:18 Anterior knee pain 632181993 M25.561 [id number] Alexander Jimenez PA-C [facility] [address] [place] [address] 01/20/2016 15:07:54 01/20/2016 16:15:13 Well child 357607131 Z00.718 [id number] Alexander Jimenez PA-C [facility] [address] [place] [address] 12/20/2016 11:34:58 12/20/2016 14:52:43 Well child 976300326 Z00.797 [id number] Georgette Mathews MA [facility] [address] [place] [address] 09/10/2017 09:55:14 09/10/2017 10:46:54 Well child 999879049 Z00.129 Acute non- suppurative serous otitis media 548881947 H65.01 [id number] Alexander Jimenez PA-C [facility] [address] [place] [address] 11/22/2017 14:57:42 11/22/2017 15:46:32 Well child 183496754 Z00.218 [id number] Alexander Jimenez PA-C [facility] [address] [place] [address] 05/02/2018 15:39:06 05/02/2018 16:10:45 Posterior rhinorrhea 08999819 R09.82 [id number] HODA Vincent [address] [place] [address] 11/27/2018 16:53:42 11/27/2018 17:49:47 [id number] [facility] [address] [place] [address] 01/02/2019 10:37:52 01/02/2019 15:09:32 Well child 421806348 Z00.817 [id number] HODA Vincent [facility] [address] [place] [address] 02/13/2019 13:57:40 02/13/2019 15:13:58 Well child 324570250 Z00.186 [id number] Alexander Jimenez PA-C [facility] [address] [place] [address] 01/13/2020 14:47:58 01/13/2020 16:12:26 Well child visit 146837648 Z00.431 [id number] HODA Vincent [facility] [address] [place] [address] 04/23/2020 15:30:20 04/23/2020 16:10:30 Axillary hidradenitis suppurativa 318798070 L73.2 [id number] Alexander Jimenez PA-C [facility] [address] [place] [address] 01/27/2021 17:45:12 01/27/2021 18:58:51 Adult health examination 840261905 Z00.00 Health Concerns Section Related Observation LastModified by Organization Detai ls LastModified Time None Recorded Concern Status LastModified by Organization Details LastModified Time None Recorded Advance Directives Directive None Recorded Payers Encounter Date Sequence Insurance Name Policy Number Policy Pickard Covered Member ID Pickard Member ID Guarantor Name 01/02/2019 2 *SELF PAY* istopher Mccaeb 02/13/2019 2 *SELF PAY* Ch istopher Mccabe 02/13/2019 1 [employer] [employer] - [facility] [id number] Chistopher Mccabe 01/13/2020 1 [facility] [place] [facility] [id number] Chistopher Mccabe 01/13/2020 1 [facility] Christopher R Mccabe [id number] Chistopher Mccabe 04/23/2020 1 [id number] Chistopher Mccabe 04/23/2020 1 [facility] Christopher R Mccabe [id number] Chistopher Mccabe 01/27/2021 1 [id number] Chistopher Mccabe 01/27/2021 1 [facility] Christopher R Mccabe [id number] Chistopher Mccabe Notes Date Note Type Note Provider Name and Address Organization Details Recorded Time 01/02/2019 text/html needs college physical no complaints Alexander Jimenez PA-C Attn: Accounting,[address] [facility], [place], [address], [facility] 01/02/2019 10:57:20 02/13/2019 text/html no complaints sports phys. Alexander Jimenez PA-C Attn: Accounting,[address] [place], [address], [facility] 02/13/2019 14:59:38 01/13/2020 text/html college phys...n o complaints Alexander Jimenez PA-C Attn: Accounting,[address] [facility], [place], [address], [facility] 01/13/2020 15:22:57 04/23/2020 text/html thinks she has infected armpit rt side.. Alexander Jimenez PA-C Attn: Accounting,[address] [facility], [place], [address], [facility] 04/23/2020 16:10:28 OBGyn Episode No OBEpisode recorded.
--- OUTSIDE RECORDS SUMMARY | 2024-07-13 21:52 | XMS_ITS | Clinical Summary ---
Author Organization [facility] Address [address] [place] [address] Care Team Providers Care Organ Pipe Voicer Name Role Phone Unavailable Primary Care Provider Unavailabl e Source Comments [facility],non-owned Affiliates and Associated Physician Practices is amultiple site organization consisting of ambulatory clinics and hospital sitesin [place], [place], [place] and [place]. This disclosure is being madepursuant to the Care Everywhere program and may not contain all information available regarding this patient. Last updated 18.[facility] Allergies Active Allergy Reactions Criticality Noted [...] Type Department Care Team Description 07/10/2024 Telephone [facility] - UTILITY ASSEMBLER [address] [place] [address] Dev Kunz DO Appointment 07/09/2024 11:11 AM SHOP WELDER - 07/09/2024 11:59 PM SHOP WELDER Hospital Encounter [facility] [address] [place] [address] Nacho Shirley MD Discharge Disposition: Home or Self Care 07/04/2024 Telephone [facility] [address] [place] [address] Juhi Whitmore RN Future Appointment (Called patient to schedule for FU ASSOCIATE ACCOUNT EXECUTIVE appt with MFM offfice per primary OB office. Shazia reports they are sending Comanage order for patient elevated blood pressures/pre eclampsia. ) 07/04/2024 Travel 07/04/2024 Telephone [facility] [address] [place] [address] Juhi Whitmore RN Future Appointment (Arnie from [facility] left messages regarding patient update and appt needed.) 06/27/2024 1:00 PM SHOP WELDER - 06/27/2024 11:59 PM SHOP WELDER Hospital Encounter [facility] [address] [place] [address] Jorden West MD UTILITY ASSEMBLER Discharge Disposition: Home or Self Care 05/30/2024 9:00 AM SHOP WELDER - 05/30/2024 11:59 PM SHOP WELDER Hospital Encounter [facility] [address] [place] [address] Philly Bradford MD Discharge Disposition: Home or Self Care 05/30/2024 8:15 AM SHOP WELDER - 05/30/2024 8:59 AM SHOP WELDER Hospital Encounter [facility] [address] [place] [phone] Philly Bradford MD Discharge Disposition: Home or Self Care 05/30/2024 Travel 05/06/2024 Telephone [facility] [address] [place] [address] Nereida Pérez Appointment (LM for pt to [...] Comments Blood Pressure 134/92 07/09/2024 11:32 AM SHOP WELDER Pulse 84 07/09/2024 11:32 AM SHOP WELDER Temperature 37 C (98.6 F) 06/10/2020 4:54 PM SHOP WELDER Respiratory Rate 18 06/10/2020 7:10 PM SHOP WELDER Oxygen Saturation 100% 06/10/2020 7:10 PM SHOP WELDER Inhaled Oxygen Concentration - - Weight 113.5 kg (250 lb 3.2 oz) 025 11:32 AM SHOP WELDER Height 170.2 cm (5' 7 ) 05/30/2024 9:16 AM SHOP WELDER Body Mass Index 39.19 05/30/2024 9:16 AM SHOP WELDER Plan of Treatment Upcoming Encounters Date Type Department Care Team (Late st Contact Info) Description 07/16/2024 1:00 PM SHOP WELDER Appointment [facility] [address] [place] [address] 07/16/2024 2:30 PM SHOP WELDER Hospital Encounter [facility] [address] [place] [address] 07/23/2024 7:30 AM SHOP WELDER Appointment [facility] [address] [place] [address] 07/23/2024 8:45 AM SHOP WELDER Appointment [facility] [address] [place] [address] 07/23/2024 10:00 AM SHOP WELDER visit [facility] - UTILITY ASSEMBLER [address] [place] [address] 07/25/2024 1:00 PM SHOP WELDER Hospital Encounter [facility] [address] [place] [phone] Health Maintenance Due Date Last Done Comments [...] 2024 07/19/2021, 06/09/2021 INFLUENZA VACCINE (#1) 2024 , 05/10/2017 DEPRESSION SCREENING 06/04/2024 OB-ONE HOUR GLUCOSE [...] PROFILE W NST Routine 07/09/2024 12:11 PM SHOP WELDER Hypertension affecting in third trimester (HCC) BMI 38.0-38.9,adult Second (HCC) Obesity in , antepartum, third trimester (HCC) SONOGRAM - COMPLETE Routine 06/27/2024 1 :04 PM SHOP WELDER BMI 38.0-38.9,adult Chronic hypertension affecting (HCC) 26 weeks gestation of (HCC) Obesity affecting in second trimester, unspecified obesity type (HCC) Hypertension affecting in second trimester (HCC) SONOGRAM - COMPLETE Routine 05/30/2024 8 :20 AM SHOP WELDER Chronic hypertension affecting (HCC) Second (HCC) 23 weeks gestation of (HCC) from Last 3 Months Results * BIOPHYSICAL PROFILE W NST (07/09/2024 12:11 PM SHOP WELDER) Linked Results Indication ======== Chronic Hypertension, on [...] tone 2: Amniotic fluid volume NST: reactive 03/13 Biophysical profile score Non Stress Test NST [...] NST at 32 weeks Coding ====== Procedures 36813: Biophysical Profile W NST 50203: [place] Uterus Limited [facility] EKUK PACS Anatomical Region Laterality Modality Other 07/09/2024 12:1 1 PM SHOP WELDER R Domingo Trujillo MD [facility] ORDERABLES * SONOGRAM - COMPLETE (06/27/2024 1:04 PM SHOP WELDER) Only the most recent of2 resultswithin the [...] 2 lb 8 oz EFW by Hadlock (LNC-LE-EV-FL) appropriate Growth Overview Exam date [place] BPD [...] Heart / Thorax 4-chamber view. 3-vessel view. 9-qusvwu-kncreth view. Abdomen Cord insertion. Stomach. Kidneys. Bladder. [...] (or sooner as indicated) Coding ====== Procedures 95435: US Preg Uterus Follow Up EKUK PACS Anatomical Region Laterality Modality Other 06/27/2024 1:04 PM SHOP WELDER Jorden West MD [facility] ORDERABLES from Last 3 Months DEV HALL Personal/Famil y Father 1974 [address] [facility] Ashley Hall Personal/Famil y Self 2000 Dev Hall Personal/Famil y Father 1974 TIFFANY HALL Personal/Famil y Grandmother 1949
[2024-07-13 22:02] VITALS: BP 149/78; PULSE 63
[2024-07-13 22:15] LABS: Basophils Percent Auto 0.3 % (0.2-1.2); Eosinophils Absolute Auto 0.1 K/mm3 (0-0.3); Eosinophils Percent Auto 0.7 % (0-4.4); Hematocrit 31.9 % (37.0-47.0); Hemoglobin 11.1 g/dL (12.0-15.0); Immature Granulocyte Absolute 0.01 K/mm3 (0.00-0.031); Immature Granulocyte Percent A 0.1 % (0-0.5); Lymphocytes Absolute Auto 1.86 K/mm3 (0.9-3.2); Mean Corpuscular HGB Conc 34.8 g/dl (32-36); Mean Corpuscular Hemoglobin 31.9 pg (26-34); Mean Corpuscular Volume 91.7 fl (80-100); Monocytes Absolute Auto 0.5 K/mm3 (0.1-0.6); Monocytes Percent Auto 6.9 % (2.6-8.5); Platelet Count Result 235 k/mm3 (150-375); Red Blood Count 3.48 M/mm3 (4.2-5.4); Red Cell Distribution Width 13.1 % (11.5-14.5); White Blood Count 7.4 K/mm3 (4.5-10.0)
[2024-07-13 22:16] VITALS: BP 133/88; PULSE 79
[2024-07-13 22:20] LABS: Add Urine Microscopic? YES; Appearance Urine Clear (Clear); Bacteria Urine Rare /hpf; Bilirubin Urine Negative (Negative); Blood Urine Negative (Negative); Color Urine Yellow (Yellow); Glucose Urine UA Negative (Negative); Ketones Urine Negative (Negative); Leukocyte Esterase Ur Trace LEU/UL (Negative); Nitrate Urine Negative (Negative); Non Pathogenic Casts 0-2; Protein Urine Negative (Negative); RBC Urine 0-2 /hpf (0-2); Specific Grav Ur 1.014 (1.001-1.035); Squamous Epithelial Cell Urine None Seen /hpf (Few); Urobilinogen Urine 0.2 mg/dL (<2.0); WBC Urine 0-5 /hpf (0-3)
[2024-07-13 22:22] LABS: Creatinine Urine 85.1 mg/dL; Total Protein Urine Random 28 mg/dL; Ur Ttl Prot Creatinine Ratio 0.33 mg/mg (0-0.20)
[2024-07-13 22:27] LABS: Alanine Aminotransferase 16 U/L (6-35); Albumin Level 3.3 g/dL (3.5-5.1); Alkaline Phosphatase 99 U/L (38-126); Anion Gap 9 mmol/L (4-12); Aspartate Amino Transferase 19 U/L (14-36); Bilirubin,Total 0.3 mg/dL (0.2-1.3); Blood Urea Nitrogen 7 mg/dL (7-17); Calcium 9.6 mg/dL (8.4-10.2); Carbon Dioxide 19 mmol/L (22-30); Chloride 108 mmol/L (98-107); Estimated Glomerular Filt Rate > 60; Glucose 93 mg/dL (65-110); Potassium 3.9 mmol/L (3.4-5.0); Sodium 136 mmol/L (137-145)
[2024-07-13 22:31] VITALS: BP 112/84; PULSE 83
[2024-07-13 22:36] VITALS: BP 133/88; BP 149/78; PULSE 79; BMI 39.4
[2024-07-13 22:41] VITALS: BP 112/84
== END 2024-07-13 22:49 | disposition home or self-care (01) ==
LOC: ANHOBOP 21:50 → ANHLDR 21:52
PROVIDERS: PCP Family Medicine; Visit Provider Obstetrics & Gynecology
DX: O13.9 Gestational [pregnancy-induced] hypertension without significant proteinuria, unspecified trimester (principal); Z3A.00 Weeks of gestation of pregnancy not specified
CPT/HCPCS: 36415; 59025; 80053; 81001; 82570; 84156; 84550; 85025; 99199

== ENCOUNTER 2024-11-11 19:27 | Emergency (ER) | payer BC, SELFPAY ==
--- NOTE | ~2024-11-11 | XR_ITS ---
XR chest 1V portable Ordering provider: Noé Blake History: 24 years Female with . chest pain . Comparison: January 08, 2022 FINDINGS: MEDIASTINUM: The cardiac silhouette is not enlarged. Congestive nona LUNGS: No infiltrates, effusions or pneumothorax. OTHER: No free air under the diaphragm. IMPRESSION: No acute cardiopulmonary pathology. Reviewed, dictated and finalized at location A.
--- OUTSIDE RECORDS SUMMARY | 2024-11-11 19:29 | XMS_ITS | Data Portability ---
Author Organization [facility] Address [address] [place] [address] Care Team Providers Care Marine Biologist Name Role Phone ERNST ALEXANDER Primary Care Provider Assessment No assessment recorded. Plan of Treatment Reminders Order Date Submit Date Provider Last Modified By Organization Details Last Modified Time Details Appointments None recorded. Lab None recorded. Referral None recorded. Procedures None recorded. Surgeries None recorded. Imaging None recorded. Medication Orders Bactrim DS 800 mg-160 mg tablet [address] [facility] [place], [address], 1 18:07:50 mupirocin calcium 2 % topical cream [address] [facility] [address] [place], [address], 1 18:16:48 Patient TargetsNo targets recorded. Patient InstructionsNo instructions recorded. Reason for Referral None Reported. Problems Name Problem SNOMED Code Status Onset Date Resolution Date Notes Provider Name and Address Organization Details Recorded Time Anterior knee pain [id number] Active Karely Medellin MA null, [facility] 6 15:32:44 Problem Notes None recorded. Procedures Surgical History Date Name Laterality Status Provider Name and Address Organization Details Recorded Time 06/04/2016 endoscopy completed Sandy Godoy MA [facility] 04/23/2020 15:38:06 Imaging Results None recorded. Procedure [...] Not Available Not Available Sprintec (28) 0.25 mg-0.035 mg tablet 01/27 completed Not Available Not Available [...] 9 165.1 cm 32.6 kg/m2 97 % 76526.1 g 98 % 98 % 85 /min 126 mm[Hg] 84 mm[Hg] Karely Medellin MA [facility] 9 10:45:51 Date Recorded Body height Body mass index (BMI) Percentile per age and sex Body mass index (BMI) Body weight Body temperature Oxygen saturation Oxygen saturation in Arterial blood by Pulse oximetry Heart rate Systolic blood pressure Diastolic blood pressure Provider Name and Address Organization Details Last Updated DateTime 0 166.37 cm 96 % 32.2 kg/m2 98921.5 g 98.2 [degF] 99 % 99 % 90 /min 144 mm[Hg] 100 mm[Hg] Karely Medellin MA [facility] 0 15:00:09 Date Recorded Heart rate Provider Name an d Address Organization Details Last Updated DateTime 01/27/2021 93 /min ARLETH Vincent Attn: Accounting,[address] [place], [address], [place] [facility] 01/27/2021 18:49:17 Date Recorded Body height Body temperature Oxygen saturation Oxygen saturation in Arterial blood by Pulse oximetry Body mass index (BMI) Body mass index (BMI) Percentile per age and sex Body weight Systolic blood pressure Diastolic blood pressure Provider Name and Address Organization Details Last Updated DateTime 1 166.37 cm 98.2 [degF] 98 % 98 % 35.1 kg/m2 97 % 81378.7 7 g 130 mm[Hg] 98 mm[Hg] Sandy Godoy MA [facility] 1 18:12:23 Date Recorded Body height Body mass index (BMI) Body mass index (BMI) Percentile per age and sex Body weight Oxygen saturation Oxygen saturation in Arterial blood by Pulse oximetry Heart rate Systolic blood pressure Diastolic blood pressure Provider Name and Address Organization Details Last Updated DateTime 9 166.37 cm 32.3 kg/m2 96 % 46268.7 g 97 % 97 % 95 /min 144 mm[Hg] 86 mm[Hg] Karely Medellin MA [facility] 9 14:11:49 Date Recorded Body height Body temperature Oxygen saturation Oxygen saturation in Arterial blood by Pulse oximetry Heart rate Body mass index (BMI) Body mass index (BMI) Percentile per age and sex Body weight Systolic blood pressure Diastolic blood pressure Provider Name and Address Organization Details Last Updated DateTime 0 166.37 cm 97.6 [degF] 99 % 99 % 103 /min 32.5 kg/m2 96 % 85286.6 9 g 158 mm[Hg] 100 mm[Hg] Sandy Godoy MA [facility] 0 15:41:44 Social History Question Answer Notes LastModified by Organizat ion Details LastModified Time Tobacco Smoking Status Never Smoker Lucia Hernandez MA [facility], [facility] 05/06/2014 10:25:55 What Is Your Level Of Caffeine Consumption? [...] For COVID-19? No Information not available 01/27/2021 What Type Of Diet Are You Following? REGULAR Information not available 11/27/2018 Which Illicit Or Recreational Drugs Have You Used? None Information not available 11/27/2018 Live Alone Or With Others? With Others Information not available 04/23/2020 What Was The Date Of Your Most Recent Tobacco Screening? 01/27/2021 Information not available 01/27/2021 What Is Your Relationship Status? Single Information not available 01/27/2021 Do You Have Smoke And Carbon Monoxide Detectors In Your Home? Yes Information not available 01/27/2021 Are You Passively Exposed To Smoke? No Information not available 01/27/2021 How Much Tobacco Do You Smoke? No Information not available 11/27/2018 General Stress Level Low Information not available 04/23/2020 Do You Use Sunscreen Routinely? Yes Information not available 01/27/2021 Has Tobacco Cessation Counseling Been Provided? No Information not available 11/27/2018 On What Date Was Tobacco Cessation Counseling Provided? 01/27/2021 Sdevriesma Answered No To The Tobacco Cessation Counseling Provided Question On 11/27/2018. Information not available 01/27/2021 How Many Years Have You Smoked Tobacco? 0 Information not available 11/27/2018 Sex: Unknown Functional Status Question Answer Note LastModified by Organizat ion Details LastModified Time Do you use any illicit or recreational drugs? No Information not available 01/27/2021 Do you or have you ever used any other forms of tobacco or nicotine? No Information not available 01/27/2021 What is your level of alcohol consumption? None Information not available 11/27/2018 Do you or have you ever used smokeless tobacco? Never used smokeless tobacco Information not available 04/23/2020 Are you currently employed? No Information not available 04/23/2020 Are you able to care for yourself? Yes Information not available 04/23/2020 Do you or have you ever used e-cigarettes or vape? Never used electronic cigarettes Information not available 04/23/2020 Mental Status Question Answer Note LastModified by Organization D etails LastModified Time Do you feel stressed (tense, restless, nervous, or anxious, or unable to sleep at night)? [id number] Information not available 01/27/2021 Family History Relationship Description Onset Age of this Age Resolved Age Notes LastModified by Organization Details LastModified Time Mother Anxiety [email or web address] Not availab le 01/20/2016 15:32:44 Mother Depressive disorder [email or web address] Not available 01/02 15:32:44 Father Hypertensive disorder [email or web address] Not available 01/02 15:32:44 Medical History Condition Response Coronary Artery Disease N Other N Atrial Fibrillation N High Blood Pressure N Depression N COPD N Blood Clots N Anxiety Disorder N Muscle, Joint, or Bone Problems N Acid Reflux (GERD) N Cancer N Stroke N High Cholesterol N Liver Disease N Headaches N Thyroid Problems N Kidney or Bladder Problems N GI Problems N Skin Problems N Anemia N Heart Attack ([place]) N Diabetes N Seizures/Epilepsy N Asthma N Allergies N Hepatitis N Osteoporosis N Heart Failure N Gynecological History Statement/Question Response Date of [...] 12/13/2018 17:52:02 DTaP, unspecified formulation 6 completed Georgette BisiCHELITA [place] - [facility] 12/13/2018 17:52:10 polio, unspecified formulation 1 completed [place] [facility] 12/13/2018 17:52:28 polio, unspecified formulation 1 completed Georgettesirisha SolitarioCHELITA [place] [facility] 12/13/2018 17:52:37 polio, unspecified formulation 2 completed Georgette BisiCHELITA [place] [facility] 12/13/2018 17:52:44 polio, unspecified formulation 6 completed GeorgetteCHELITA [place] [facility] 12/13/2018 17:52:54 pneumococcal, unspecified formulation 1 completed Georgette Solitariories CHEL[place] [facility] 12/13/2018 17:53:07 pneumococcal, unspecified formulation 1 completed Georgettesirisha SolitarioCHELITA [place] [facility] 12/13/2018 17:53:19 pneumococcal, unspecified formulation 1 completed Georgettesirisha SolitarioCHELITA [place] [facility] 12/13/2018 17:53:26 pneumococcal, unspecified formulation 2 completed Georgettesirisha SolitarioCHELITA [place] [facility] 12/13/2018 17:53:31 MMR 2 completed Georgette Solitariories C[place] [facility] 12/13/2018 17:53:46 MMR 6 completed Georgettesirisha Solitariories [place] [facility] 12/13/2018 17:53:56 varicella 2 completed Georgettesirisha Solitariories [place] [facility] 12/13/2018 17:54:08 Hep A, unspecified formulation 7 completed Georgette Solitariories [place] [facility] 12/13/2018 17:54:38 HPV, unspecified formulation 2 completed Georgette Mathews C[place] [facility] 12/13/2018 17:54:58 meningococcal ACWY, unspecified formulation 2 completed [place] [facility] 12/13/2018 17:55:14 Meningococcal MCV4O 8 completed Not Available [facility] 06/21/2019 02:35:26 meningococcal B, OMV 0 completed [place] [facility] 01/13/2020 16:27:05 Hep A, unspecified formulation 1 completed [place] [facility] 08/10/2017 17:28:14 HPV, unspecified formulation 4 completed [place] [facility] 08/10/2017 17:28:32 HPV, unspecified formulation 5 completed [place] [facility] 08/10/2017 17:28:45 Influenza, [...] SNOMED-CT Code Diagnosis ICD10 Code Diagnosis Note [id number] Jimenez PA-C [facility] [address] [place] [address] 05/06/2014 10:22:40 05/07/2014 17:07:00 Well child [id number] [facility] [address] [place] [address] 01/13/2015 14:18:27 01/13/2015 15:15:01 Well child [id number] Bacilio Canales MD [facility] [address] [place] [address] 04/20/2015 11:21:39 04/20/2015 12:11:40 Anterior knee pain 336667896 M25.569 [id number] [address] MD [facility] [address] [place] [address] 06/18/2015 16:33:21 06/22/2015 10:00:14 Anterior knee pain 463516966 M25.[id number] [facility] [address] [place] [address] 07/02/2015 16:55:09 07/02/2015 17:40:18 Anterior knee pain 285170181 M25.561 [id number] Alexander Jimenez PA-C [facility] [address] [place] [address] 01/20/2016 15:07:54 01/20/2016 16:15:13 Well child 874871532 Z00.675 [id number] [facility] [address] [place] [address] 12/20/2016 11:34:58 12/20/2016 14:52:43 Well child 844814576 Z00.670 [id number] [address] MD [facility] [address] [place] [address] 09/10/2017 09:55:14 09/10/2017 10:46:54 Well child 915467765 Z00.129 Acute non- suppurative serous otitis media 262773480 H65.01 [id number] [facility] [address] [place] [address] 11/22/2017 14:57:42 11/22/2017 15:46:32 Well child 931841124 Z00.126 [id number] Alexander Jimenez PA-C [facility] [address] [place] [address] 05/02/2018 15:39:06 05/02/2018 16:10:45 Posterior rhinorrhea 40925170 R09.82 [id number] Alexander Jimenez PA-C [facility] [address] [place] [address] 11/27/2018 16:53:42 11/27/2018 17:49:47 [id number] Alexander Jimenez PA-C [facility] [address] [place] [address] 01/02/2019 10:37:52 01/02/2019 15:09:32 Well child 176635861 Z00.499 [id number] Alexander Jimenez PA-C [facility] [address] [place] [address] 02/13/2019 13:57:40 02/13/2019 15:13:58 Well child 570943224 Z00.630 [id number] Alexander Jimenez PA-C [facility] [address] [place] [address] 01/13/2020 14:47:58 01/13/2020 16:12:26 Well child visit 465500964 Z00.105 [id number] [facility] [address] [place] [address] 04/23/2020 15:30:20 04/23/2020 16:10:30 Axillary hidradenitis suppurativa 194638791 L73.[id number] [facility] [address] [place] [address] 01/27/2021 17:45:12 01/27/2021 18:58:51 Adult health examination 576539817 Z00.00 Health Concerns Section Related Observation LastModified [...] *SELF PAY* Ch istopher Mccabe 02/13/2019 1 [facility] [id number] Chistopher Mccabe 01/13/2020 1 [facility] [id number] Chistopher Mccabe 01/13/2020 1 [facility] Christopher R Mccabe [id number] Chistopher Mccabe 04/23/2020 [id number] Chistopher Mccabe 04/23/2020 1 [facility] Christopher R Mccabe [id number] Chistopher Mccabe 01/27/2021 1 [facility] Ashley Manar [id number] Chistopher Mccabe 01/27/2021 1 [facility] Christopher R Mccabe [id number] Chistopher Mccabe Notes Date Note Type Note Provider Name and Address Organization Details Recorded Time 01/02/2019 text/html needs college physical no complaints Alexander Jimenez PA-C Attn: [employer]ing,[address] [place], [address], [facility] 01/02/2019 10:57:20 02/13/2019 text/html no complaints sports phys. Alexander Jimenez PA-C Attn: Accounting,[address] [place], [address], [facility] 02/13/2019 14:59:38 01/13/2020 text/html college phys...n o complaints Alexander Jimenez PA-C Attn: Accounting,[address] [place], [address], [facility] 01/13/2020 15:22:57 04/23/2020 text/html thinks she has infected armpit rt side.. Alexander Jimenez PA-C Attn: [employer]ing,[address] [place], [address], [facility] 04/23/2020 16:10:28 OBGyn Episode No OBEpisode recorded.
--- OUTSIDE RECORDS SUMMARY | 2024-11-11 19:29 | XMS_ITS | Encounter Summary ---
Author Organization [facility] Health Address [address] [place] [address] Care Team Providers Care Block Cuber Name Role Phone Bushra Tello DO Primary Care Provider [phone] Reason for Visit * Reason Onset Date Comments Appointment 08/18/2024 Encounter Details Date Type Department Care Team (Late st Contact Info) Description 08/18/2024 Telephone [facility] [address] [place] [address] [facility] [address] , [address] [place], [place] [id number] Appointment Social History Tobacco Use Types Packs/Day [...] of Binge Drinking Not on file 12/2020 Overall Financial Resource Strain (CARDIA) Answe r Date Recorded How hard is it for you to pa y for the very basics like food, housing, medical care, and heating? Not hard at all 08/21/2024 [facility] - Occupational Stress Questionnaire Answer Date Recorded Do you feel stress - tense, restless, nervous, or anxious, or unable to sleep at night because your mind is troubled all the time - these days? Very much 08/21/2024 Hunger Vital Sign Answer Date Recorded Within the past 12 months, y ou worried that your food would run out before you got the money to buy more. Never true 08/22/19 Within the past 12 months, t he food you bought just didn't last and you didn't have money to get more. Never true 08/21/2024 PRAPARE - Transportation Answer Date Re corded In the past 12 months, has l ack of transportation kept you from medical appointments or from getting medications? No 08/03 In the past 12 months, has l ack of transportation kept you from meetings, work, or from getting things needed for daily living? No 08/21/2024 [place] Depression Scale Answer Date Recorded [place] Depression Scale Total 12 08/21/2024 The thought of harming myself has occurred to me . Never 08/21/2024 Housing Stability Vital Sign Answer Jose e Recorded In the last 12 months, was t here a time when you were not able to pay the mortgage or rent on time? No 08/21/2024 In the past 12 months, how m any times have you moved where you were living? 0 08/21/2024 At any time in the past 12 m onths, were you homeless or living in a half-way (including now)? No 08/21/2024 Education Answer Date Recorded What is the highest level of school you have completed or the highest degree you have received? 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 Answer Date of Assessment Author No 08/11/2024 7:45 AM CDT Glendy Mays RN * Is person blind or have serious difficulty seeing? Answer Date of Assessment Author No 08/11/2024 7:45 AM CDT Glendy Mays RN * Does person have serious difficulty walking/climbing stairs? Answer Date of Assessment Author No 08/11/2024 7:45 AM CDT Glendy Mays RN * Does person have difficulty dressing/bathing? Answer Date of Assessment Author No 08/11/2024 7:45 AM CDT Glendy Mays RN * Does person have difficulty doing errands alone? Answer Date of Assessment Author No 08/11/2024 7:45 AM CDT Glendy Mays RN documented as of this encounter Mental Status * Does person have difficulty concentrating/remembering/making decisions? Answer Entry Date Author No 08/11/2024 7:45 AM CDT Glendy Mays RN documented in this encounter Miscellaneous Notes * Telephone Encounter - Amie Whaley - 08/18/2024 12:04 PM CDT Pt calling in to schedule follow up visit. CB# [phone] documented in this encounter Plan of Treatment Not on file documented as of this encounter Visit Diagnoses Not on filedocumented in this encounter Care Teams Block Cuber Relationship Specialty Start Date End Date Bushra Tello DO [address] [place] [address] PCP - General Family Medicine 07/23/24 documented as of this encounter
--- OUTSIDE RECORDS SUMMARY | 2024-11-11 19:30 | XMS_ITS | Clinical Summary ---
Author Organization [facility] Address [address] 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 This disclosure is being madepursuant to the Care Everywhere program and may not contain all information available regarding this patient. Last updated 18.[facility] Allergies Active Allergy Reactions Criticality Noted Date Comments Vancomycin Rash High 05/31/2024 Medications * This document contains information received from the source organization and may not represent a complete record from that organization. * Be aware that medications may not be up to date on this document. Alwaysverify current medications with the patient. Vit-DSS-Fe Fum-FA ( vitamin with iron) tablet Take 1 (one) tablet by mouth once daily Active albuterol HFA (Proventil; Ventolin; Proair) 108 (90 Base) MCG/ACT inhalerIndicat ions:Asthma affecting , antepartum (HCC) INHALE 2 PUFFS BY MOUTH EVERY 4 HOURS NEEDED FOR SHORTNESS OF BREATH OR WHEEZING Active ibuprofen (Motrin) 600 MG tablet Take 1 (one) tablet by mouth every 6 hours as needed for Pain 30 tablet 08/16/2024 12:03 PM CDT 08/17/19 Active acetaminophen (Tylenol) 500 MG tablet Take 2 (two) tablets by mouth every 6 hours as needed for Fever or Pain 60 tablet 08/16/2024 12:03 PM CDT 08/17/19 Active polyethylene glycol 3350 (Miralax) 17 GM/SCOOP powder Mix and drink 17 (seventeen) g by mouth once daily 238 g 08/16/2024 12:03 PM CDT 08/17/19 Active Additional Information Patient not taking.Reason: Other, Informant: Patient, Reported on 09/02/2024 docusate sodium (Colace) 100 MG capsule Take 1 (one) capsule by mouth once daily 60 capsule 08/16/2024 12:03 PM CDT 08/17/19 Active Additional Information Patient not taking.Reason: Other, Informant: Patient, Reported on 09/02/2024 naloxone HCl (Narcan) 4 MG/0.1ML nasal spray [place] 1 (one) spray into the nose as needed (May repeat every 2 min in alternating nostrils until emergency medical help arrives for overdose) 08/17/19 Active Additional Information Patient not taking.Reason: Other, Informant: Patient, Reported on 09/02/2024 oxyCODONE, immediate release, (Roxicodone) 5 MG tabletIndicati ons:S/P Take 1 (one) tablet by mouth every 6 hours as needed for Pain 12 tablet 08/16/2024 12:03 PM CDT 08/17/19 Active Additional Information Patient not taking.Reason: Other, Informant: Patient, Reported on 09/16/2024 labetalol (Normodyne; Trandate) 300 MG tabletIndicati ons:Hypertensi on Take 2 (two) tablets by mouth every 8 hours Reasons: High Blood Pressure 90 tablet 1 08/24/19 25 Active NIFEdipine CR osmotic 24hr (Adalat CC) 60 MG tablet Take 1 (one) tablet by mouth every 12 hours 60 tablet 1 08/24/19 25 Active enoxaparin (Lovenox) 40 MG/0.4ML injectionIndic ations:Acute venous thrombosis Inject 0.4 mL subcutaneously every 12 hours for 48 days 19.2 mL 1 09/24/19 25 025 Active Problems Problem Noted Date Diagnosed Date Mild intermittent asthma without complication Chronic hypertension 08/21/2024 Stem cell donor 06/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 Not started on meds in until about 16 weeks, never adequately treated. Early on no meds BPs documented 140-173/90-112 BMI 38.0-38.9,adult 05/31/2024 08/09/19 25 Obesity in , antepa rtum, third trimester 05/31/2024 09/16/2024 Overview (08/08/2024): BMI pre- 34.45 Encounters * This document contains information received from the source organization and may not represent a complete record from that organization. Date Type Department Care Team Description 10/09/2024 8:44 AM CDT - 10/09/2024 11:59 PM CDT [facility] [address], [address] [place] [address] Alan Vail MD Discharge Disposition: Home or Self Care 10/09/2024 Travel 09/23/2024 10:09 AM CDT - 09/23/2024 11:59 PM CDT [facility] [address], [address] [place] [phone] Alan Vail MD Discharge Disposition: Home or Self Care 09/23/2024 Travel 09/16/2024 9:42 AM CDT - 09/16/2024 11:59 PM CDT Hospital Encounter [facility] at [address], [address] [phone] Alan Vail MD Bryant, Kenisha L, ENGINEERING SECRETARY-[facility] Discharge Disposition: Home or Self Care 09/16/2024 9:40 AM CDT - 09/16/2024 9:41 AM CDT Hospital Encounter [facility] at [address], [address] [phone] Alan Vail MD Discharge Disposition: Home or Self Care 09/16/2024 Travel 09/12/2024 Orders Only [facility] at [address], [address] [phone] Ingrid Velasquez, LEFTY 09/10/2024 Orders Only [facility] at [address], [address] [phone] Ingrid Velasquez, RN 09/02/2024 9:47 AM CDT - 09/02/2024 11:59 PM CDT Hospital Encounter [facility] at [address], [address] [phone] Alan Vail MD Discharge Disposition: Home or Self Care 08/28/2024 Orders Only [facility] at [address], [address] [phone] Alan Vail MD Cystitis 08/26/2024 11:37 AM CDT - 08/26/2024 4:25 PM CDT Hospital Encounter [facility] [address] [phone] Emerson Bryant MD Discharge Disposition: Home or Self Care 08/26/2024 10:30 AM CDT - 08/26/2024 11:36 AM CDT Hospital Encounter [facility] at [address], [address] [place] [phone] Alan Vail MD Discharge Disposition: Home or Self Care 08/25/2024 Telephone [facility] at [address], [address] [place] [phone] Marj Matos Reminder Call 08/21/2024 6:08 PM CDT - 08/23/2024 12:25 PM CDT Hospital Encounter [facility] 5E ANTEPARTUM/MOTHER BABY [address] [place] [address] Mary Ann Gallardo MD Maternal Medicine Discharge Disposition: Home or Self Care 08/19/2024 9:44 AM CDT - 08/19/2024 11:59 PM CDT Hospital Encounter [facility] at [address], [address] [place] [phone] Alan Vail MD Discharge Disposition: Home or Self Care 08/18/2024 Telephone [facility] at [address], [address] [place] [phone] Ingrid Velasquez, RN Appointment 08/18/2024 Travel 08/18/2024 Telephone [facility] - EXTRAS CASTING DIRECTOR [address] [place] [address] [address] [place] [address] [facility], Clinic Appointment 08/17/2024 Telephone [facility] OB [address] [place], [place] [phone] Indira Navarrete MD Question 08/12/2024 Surgery [facility] LD [address] [place] [id number] Ruiz Gutierrez MD SECTION (EMERGENCY) 08/11/2024 11:03 PM CDT Anesthesia Event [facility] [address] [place] [address] Davon Ching, Allison Barnham, ENGINEERING SECRETARY-[employer] SALVAGER 08/07/2024 5:00 PM FURNITURE DIPPER - 08/16/2024 4:58 PM CDT Hospital Encounter [facility] 6W MOTHER/BABY [address] [place] [address] Hosea Portillo MD Obstetrics Discharge Disposition: Home or Self Care from Last 3 Months Immunizations Immunization Administration Dates Next Due Covid Moderna primary monova lent 12+ yr 0.5mL 07/19/2021,06/09/2021 DTAP, HISTORIC VACCINE 01/18/2006,2001,01/26/2001,11/24,2000 HEP A PED/ADULT VACCINE 01/23/2011,01/14/2007 HEP B VACCINE 05/11/2001,2000,2000 HIB VACCINE 01/26/2002, 1,2000,09/18 HPV VACCINE 10/17/2011 Human Papilloma Virus Kathy valent Vaccine 09/07/2014,05/08/2014 INFLUENZA VACCINE, QUADR. (F LUZONE; FLULAVAL; FLUARIX; AFLURIA QUADRIVALENT; 6MO+), 0.5 ML (IIV4) 07/23/2024,02/13/2020,05/10/2017 MENINGOCOCCAL ACWY MENVEO 11/22/2017,10/17/2011 MMR 08/13/2024() MMR VACCINE 01/18/2006,07/22/2001 Meningococcal B Recombinant 2 Dose, IM 0 PNEUMOCOCCAL PPV VACCINE 07/22/2001,2 10/2000,2000,09/18 POLIO,HISTORIC VACCINE 01/18/2006,2001,2000,09/18 TDAP (7yrs+) 07/23/2024 TDAP, HISTORIC VACCINE 04/08/2021,01/23/2011 VARICELLA 01/23/2011,09/19/2001 Family History Medical History Relation Name Comments Diabetes Paternal Grandfather Relation Name Status Comments Father Alive Mother Alive Paternal Grandfather Social History Tobacco Use Types Packs/Day Years Used Date Smoking Tobacco: Never Smokeless Tobacco: Never Tobacco Cessation:Counseling Given: Not Answered Alcohol Use Standard Drinks/Week Comments Never 0 [...] care, and heating? Not hard at all 10/09/2024 [facility] [place] [facility] Occup[facility] - Occupational Stress Questionnaire Answer Date Recorded Do you feel stress - tense, restless, nervous, or anxious, or unable to sleep at night because your mind is troubled all the time - these days? Not at all 10/09/2024 Hunger Vital Sign Answer Date Recorded Within the past 12 months, y ou worried that your food would run out before you got the money to buy more. Never true 10/10/19 25 Within the past 12 months, t he food you bought just didn't last and you didn't have money to get more. Never true 10/09/2024 PRAPARE - Transportation Answer Date Re corded In the past 12 months, has l ack of transportation kept you from medical appointments or from getting medications? No 01/2025 In the past 12 months, has l ack of transportation kept you from meetings, work, or from getting things needed for daily living? No 10/09/2024 Paris Depression Scale Answer Date Recorded Paris Depression Scale Total 3 10/09/2024 The thought of harming myself has occurred to me . Never 10/09/2024 Housing Stability Vital Sign Answer Jose e Recorded In the last 12 months, was t here a time when you were not able to pay the mortgage or rent on time? No 10/09/2024 In the past 12 months, how m any times have you moved where you were living? 0 10/09/2024 At any time in the past 12 m [facility], were you homeless or living in a residential (including now)? No 10/09/2024 Education Answer Date Recorded What is the highest level of school you have completed or the highest degree you have received? 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 Not on file Not on nancy e Last Filed Vital Signs Vital Sign Reading Time Taken Comments Blood Pressure 128/82 10/09/2024 8:56 AM CDT Pulse 82 10/09/2024 8:56 AM CDT Temperature 37.1 C (98.8 F) 08/26/2024 4:24 PM CDT Respiratory Rate 16 10/09/2024 8:56 AM CDT Oxygen Saturation 98% 10/09/2024 8:56 AM CDT Inhaled Oxygen Concentration - - Weight 108.4 kg (239 lb) 10/09/2024 8:56 AM CDT Height 167.6 cm (5' 6) 10/09/2024 8:56 AM CDT Body Mass Index 38.58 10/09/2024 8:56 AM CDT Plan of Treatment Health Maintenance Due Date Last Done Comments HEPATITIS C SCREENING 07/16/2018 PNEUMOCOCCAL VACCINE (1 of 2 - PCV) 2019 07/22/2001, 01/26/2001, 2000, Additional history exists MENINGOCOCCAL (Group B) VACC INE SHARED DECISION-MAKING (2 of 2 - Bexsero SCDM 2-dose series) 07/15/2020 01/13/2020 COVID-19 VACCINE (3 2023-2 5 season) 2024 07/19/2021, 06/09/2021 CHLAMYDIA/GONORRHEA SCREENING 03/10/2025 03/10/2024 PAP SMEAR 03/10/2027 03/10/2024 DTAP/TDAP/TD VACCINES (9 - T d or Tdap) 07/23/2034 07/23/2024, 04/08/2021, 01/23/2011, Additional history exists ZOSTER VACCINE (1 of 2) 2050 HEPATITIS B VACCINE Completed 05/11/2001, 2000, 2000 HIB VACCINE Completed 01/26/2002, 01/03, 2000, Additional history exists HPV VACCINE Completed 09/07/2014, 12/0 10/2013, 10/17/2011 MENINGOCOCCAL GROUPS A/C/Y/W VACCINE Completed 11/22/2017, 10/17/2011 HIV SCREENING Completed 07/02/2024, 03/10/2024 INFLUENZA VACCINE Completed 07/23/2024, , 05/10/2017 DEPRESSION SCREENING Completed 10/09/2024 Procedures Procedure Name Priority Date/Time Associated Diagnosis Comments COMPREHENSIVE METABOLIC PANEL Routine 09/23/2024 10:52 AM CDT Chronic hypertension Routine follow-up (HCC) HEMOGLOBIN A1C Routine 09/23/2024 10:52 AM CDT Chronic hypertension Routine follow-up (HCC) LIPID PROFILE Routine 09/23/2024 10:52 AM CDT Chronic hypertension Routine follow-up (HCC) MICROALB/CREAT RATIO URINE RANDOM PANEL Routine 09/23/2024 10:52 AM CDT Chronic hypertension Routine follow-up (HCC) CULTURE URINE Routine 09/16/2024 10:32 AM CDT Acute cystitis without hematuria FACTOR V LEIDEN MUTATION PANEL STAT 08/26/2024 3:45 PM CDT Edema of left upper extremity PROTHROMBIN [id number] PANEL STAT 08/26/2024 3:45 PM CDT Edema of left upper extremity ANTITHROMBIN III ACTIVITY STAT 08/26/2024 3:45 PM CDT Edema of left upper extremity DIFFERENTIAL MANUAL STAT 08/26/2024 3 :22 PM CDT Edema of left upper extremity CBC W AUTO DIFFERENTIAL STAT 08/26/2024 3:22 PM CDT Edema of left upper extremity VAS LEFT VENOUS DUPLEX UE STAT 08/26/2024 1:44 PM CDT Edema of left upper extremity URINALYSIS REFLEX MICROSCOPIC REFLEX CULTURE Routine 08/26/2024 11:25 AM CDT Dysuria CULTURE URINE Routine 08/26/2024 11:25 AM CDT Dysuria COMPREHENSIVE METABOLIC PANEL AM Draw 08/22/2024 4:45 AM CDT CBC W AUTO DIFFERENTIAL AM Draw 08/22/2024 4:45 AM CDT TYPE + SCREEN PANEL Routine 08/21/2024 8 :08 PM CDT COMPREHENSIVE METABOLIC PANEL STAT 08/21/2024 7:10 PM CDT hypertension CBC W AUTO DIFFERENTIAL STAT 08/21/2024 7:10 PM CDT hypertension DIFFERENTIAL MANUAL STAT 08/15/2024 6 :49 AM CDT COMPREHENSIVE METABOLIC PANEL STAT 08/15/2024 6:49 AM CDT CBC W AUTO DIFFERENTIAL STAT 08/15/2024 6:49 AM CDT SYPHILIS ANTIBODY CASCADING REFLEX STAT 08/13/2024 8:03 AM CDT CBC W AUTO DIFFERENTIAL STAT 08/13/2024 8:03 AM CDT CBC W/O DIFFERENTIAL AM Draw 08/13/2024 5:59 AM CDT PATHOLOGY TISSUE EXAM (STL) Routine 08/12/2024 1:16 PM CDT Diagnosis unknown BLOOD GASES CORD ROZINA (ISTAT) Routine 08/12/2024 1:04 PM CDT BLOOD GASES CORD ART (ISTAT) Routine 08/12/2024 1:00 PM CDT COMPREHENSIVE METABOLIC PANEL Routine 08/11/2024 11:38 PM CDT CBC W AUTO DIFFERENTIAL Routine 08/11/2024 11:38 PM CDT NEURAXIAL BLOCK Routine 08/11/2024 11:22 PM CDT CBC W AUTO DIFFERENTIAL Routine 08/11/2024 2:50 AM CDT TYPE + SCREEN PANEL Routine 08/11/2024 2 :49 AM CDT SECTION (EMERGENCY) Nonreassuring tracing from Last 3 Months Results * MICROALB/CREAT RATIO URINE RANDOM PANEL (09/23/2024 10:52 AM CDT) Creatinine Urine 40.17 mg/dL 09/24/19 12:06 PM CDT [facility] Microalbumin Urine <0.5 mg/dL 09/23/2024 12:06 PM CDT [facility] Microalbumin/Crea tinine Ratio 09/23/2024 12:06 PM CDT [facility] Comment:Not Calculated Urine URINE SPECIMEN OBTAINED BY CLEAN CATCH PROCEDURE / Unknown Collection / Unknown 09/23/2024 10:52 AM CDT 09/23/2024 11:42 AM CDT Alan Vail MD LAB - URINE CHEMISTRY ORDERABLES Final Result [facility] [address] [place] [address] * HEMOGLOBIN A1C (09/23/2024 10:52 AM CDT) Hemoglobin A1c 5.3 <5.7 % 09/23/2024 11:55 AM CDT [facility] Estimated Average Glucose 105 mg/dL 09/23/2024 11:55 AM CDT [facility] Blood BLOOD SPECIMEN / Unknown Venipuncture / Unknown 09/23/2024 10:52 AM CDT 09/23/2024 11:42 AM CDT [facility] - 09/23/2024 11:55 AM CDT HbA1c Interpretation: Normal: < 5.7% Pre-diabetes: 5.7-6.4% Diabetes: Equal to or greater than 6.5% Test results diagnostic of diabetes should be repeated for confirmation. Treatment target values recommended by ADA and other clinical organizations should be used to evaluate metabolic control in patients. This test should not replace glucose testing for patients with Type 1 diabetes, pediatric patients, or women. Falsely low HbA1c results may be observed in patients with clinical conditions that shorten erythrocyte life span or decrease mean erythrocyte age such as the presence of unstable hemoglobin variants, elevated hemoglobin F level or other causes of hemolytic anemia. HbA1c may not accurately reflect glycemic control when clinical conditions that affect erythrocyte survival are present. Severe Iron deficiency anemia may yield falsely high results. Hemoglobin A1c assay should not be used to diagnose or monitor diabetes in patients with malignancy, recent blood transfusion, chronic kidney or liver disease. This method may yield falsely low results when hemoglobin (HbF) exceeds 5% in the specimen. The [employer] Alinity assay for the measurement of HbA1c is a National Glycohemoglobin Standardization Program (NGSP) certified method. Alan Vail MD LAB - CHEMISTRY ORDERABLES Final Result [facility] [address] [place] [address] * (ABNORMAL) COMPREHENSIVE METABOLIC PANEL (09/23/2024 10:52 AM CDT) Only the most recent of5 resultswithin the time period is included. [facility] Glucose 91 70 - 99 mg/dL 09/23/2024 12:02 PM CDT [facility] Sodium 136 136 - 145 mmol/L 09/23/2024 12:02 PM CDT [facility] Potassium 3.9 3.5 - 5.1 mmol/L 09/23/2024 12:02 PM CDT [facility] Chloride 106 98 - 107 mmol/L 09/23/2024 12:02 PM CDT [facility] CO2 23 22 - 29 mmol/L 09/23/2024 12:02 PM [facility] Calcium 9.6 8.4 - 10.4 mg/dL 09/23/2024 12:02 PM [facility] Anion Gap 7 6 - 16 mmol/L 09/23/2024 12:02 PM [facility] BUN 8 5.3 - 18.7 mg/dL 09/23/2024 12:02 PM [facility] Creatinine 0.74 0.57 - 1.11 mg/dL 09/23/2024 12:02 PM [facility] Alkaline Phosphatase 98 40 - 150 U/L 09/23/2024 12:02 PM [facility] ALT 67(H) 6 - 57 U/L 09/23/2024 12:02 PM [facility] AST 35 10 - 48 U/L 09/23/2024 12:02 PM [facility] Protein Total 7.5 6.4 - 8.3 gm/dL 09/23/2024 12:02 PM [facility] Albumin 3.8 3.4 - 5.0 gm/dL 09/23/2024 12:02 PM [facility] Bilirubin Total 0.4 0.2 - 1.2 mg/dL 09/23/2024 12:02 PM [facility] eGFR by CKD-EPI >90 >=90 mL/min/1.7 3 m2 09/23/2024 12:02 PM [facility] Blood BLOOD SPECIMEN / Unknown Venipuncture / Unknown 09/23/2024 10:52 AM CDT 09/23/2024 11:42 AM T us Alan Vail MD LAB - CHEMISTRY ORDERABLES Final Result [facility] [address] [place] [address] * (ABNORMAL) LIPID PROFILE (09/23/2024 10:52 AM T) [facility] Cholesterol 249(H) <200 mg/dL 09/23/2024 12:02 PM [facility] Triglycerides 243(H) <150 mg/dL 09/23/2024 12:02 PM CDT [facility] HDL Cholesterol 38(L) >40 mg/dL 5 12:02 PM CDT [facility] LDL Calculated 162(H) <130 mg/dL 09/23/2024 12:02 PM CDT [facility] VLDL Calculated 49(H) <=30 mg/dL 12:02 PM CDT [facility] Chol HDL Ratio 6.6(H) <4.5 09/23/2024 12:02 PM CDT [facility] LDL/HDL Ratio 4.3 <5.0 09/23/2024 12:02 PM CDT [facility] Blood BLOOD SPECIMEN / Unknown Venipuncture / Unknown 09/23/2024 10:52 AM CDT 09/23/2024 11:42 AM CDT Alan Vail MD LAB - CHEMISTRY ORDERABLES Final Result Performing Organization Address City/[facility]/ZIP Co de Phone Number [facility] [address] [place] [address] * URINE CULTURE (09/16/2024 10:32 AM CDT) Only the most recent of2 resultswithin the time period is included. [facility] Culture Urine 50,000-100,000 CFU/mL urogenital mark 09/18/2024 12:21 AM CDT [facility] Urine URINE SPECIMEN OBTAINED BY CLEAN CATCH PROCEDURE / Unknown Collection / Unknown 09/16/2024 10:32 AM CDT 09/16/2024 12:49 PM CDT Alan Vail MD LAB - MICROBIOLOGY ORDERABLES Fi nal Result [facility]CRO[facility]OLOG[facility] [address] [place] [address], [facility] [phone] * PROTHROMBIN [id number] PANEL (08/26/2024 3:45 PM CDT) [facility] Factor II DNA Analysis Comment 09/01/2024 3:09 PM CDT [facility] ([facility]) Comment: Result: c.*97G>A - Not Detected This result is not associated with an increased risk for venous thromboembolism. See Additional Clinical Information and Comments. Additional Clinical Information: Venous thromboembolism is a multifactorial disease influenced by genetic, environmental, and circumstantial risk factors. The c.*97G>A variant in the F2 gene is a genetic risk factor for venous thromboembolism. Heterozygous carriers have a 2- to 4-fold increased risk for venous thromboembolism. Homozygotes for the c.*97G>A variant are rare. The annual risk of VTE in homozygotes has been reported to be 1.1%/year. Individuals who carry both a c.*97G>A variant in the F2 gene and a c.1601G>A (p. [id number]) variant in the F5 gene (commonly referred to as Factor V Leiden) have an approximately 20- fold increased risk for venous thromboembolism. Risks are likely to be even higher in more complex genotype combinations involving the F2 c.*97G>A variant and Factor V Leiden (PMID: 76780997). Additional risk factors include but are not limited to: deficiency of protein C, protein S, or antithrombin III, age, male sex, personal or family history of deep vein thromboembolism, smoking, surgery, prolonged immobilization, malignant neoplasm, tamoxifen treatment, raloxifene treatment, oral contraceptive use, hormone replacement therapy, and . Management of thrombotic risk and thrombotic events should follow established guidelines and fit the clinical circumstance. This result cannot predict the occurrence or recurrence of a thrombotic event. Comments: Genetic counseling is recommended to discuss the potential clinical implications of positive results, as well as recommendations for testing family members. Genetic Coordinators are available for health care providers to discuss results at [phone] ([phone]). Test Details: Variant analyzed: c.*97G>A, previously referred to as [id number] Methods/Limitations: DNA analysis of the F2 gene (NM_[id number]) was performed by PCR amplification followed by restriction enzyme analysis. The diagnostic sensitivity is >99%. Results must be combined with clinical information for the most accurate interpretation. Molecular-based testing is highly accurate, but as in any laboratory test, diagnostic errors may occur. False positive or false negative results may occur for reasons that include genetic variants, blood transfusions, bone marrow transplantation, somatic or tissue-specific mosaicism, mislabeled samples, or erroneous representation of family relationships. This test was developed and its performance characteristics determined by [employer]. It has not been cleared or approved by the Food and Drug Administration. References: Alcira S, Amanda THAO, Taj R, Gilberto WW, Ismael JH; [employer] Professional Practice and Guidelines Committee. Addendum: [employer] consensus statement on factor V Leiden mutation testing. Jessica Med. 2020Aug 06. doi: 10.1038/y53207-510-48747-p. PMID: 02177648. Michael CONWAY. Prothrombin Thrombophilia. 2005Dec 26 [Updated 2020Jul 08'. In: Jose Daniel MP, Mar HH, Anirudh RA, et al., editors. Philippe(R) [Internet'. [place] ([place]): [facility]; 5415-7967. Available from: https://www.ncbi.nlm.nih.gov/books/ZSZ3914/ Kelvin S, Amanda THAO, Wilbur X, Mak B, Laz EB, Lucía P, Geno CS; [facility] Laboratory Brass Molder Helper Committee. Venous thromboembolism laboratory testing (factor V Leiden and factor II c.*97G>A), 2018 update: a technical standard of the [place] [employer] (ACMG). Jessica Med. 2018 May;20(12):5175-2447. doi: 10.1038/f98362-254-0453-h. Epub 2017Mar 08. PMID: [id number]. Reviewed By Comment 09/01/2024 3:09 PM CDT [facility] ([facility]) Comment: Technical Component performed at [facility] Professional Component performed by: [employer] Michela Lock, Ph.D., [facility] Director, Molecular Genetics [address] [place] [id number] Blood BLOOD SPECIMEN / Unknown Venipuncture / Unknown 08/26/2024 3:45 PM CDT 08/26/2024 3:49 PM CDT Narrative [facility] ([facility]) - 09/01/2024 3:09 PM CDT Performed at: - [facility] [address] [facility], [place], [place] [id number] [employer] Worker: Kadie Jones Formerly [facility] [place], Phone: [phone] us Emerson Bryant MD LAB - COAGULATION ORDERABLES Fin al Result [facility] ([facility]) [address] [place] [address] * FACTOR V LEIDEN MUTATION PANEL (08/26/2024 3:45 PM CDT) [facility] Factor V Leiden Comment 4:11 PM CDT [facility] ([facility]) Comment: Result: c.1601G>A (p.[id number]) - Not Detected This result is not associated with an increased risk for venous thromboembolism. See Additional Clinical Information and Comments. Additional Clinical Information: Venous thromboembolism is a multifactorial disease influenced by genetic, environmental, and circumstantial risk factors. The c.1601G>A (p. [id number]) variant in the F5 gene, commonly referred to as Factor V Leiden, is a genetic risk factor for venous thromboembolism. Heterozygous carriers of this variant have a 6- to 8-fold increased risk for venous thromboembolism. Individuals homozygous for this variant (ie, with a copy of the variant on each chromosome) have an approximately 80-fold increased risk for venous thromboembolism. Individuals who carry both a c.*97G>A variant in the F2 gene and Factor V Leiden have an approximately 20-fold increased risk for venous thromboembolism. Risks are likely to be even higher in more complex genotype combinations involving the F2 c.*97G>A variant and Factor V Leiden (PMID: [id number]). Additional risk factors include but are not limited to: deficiency of protein C, protein S, or antithrombin III, age, male sex, personal or family history of deep vein thromboembolism, smoking, surgery, prolonged immobilization, malignant neoplasm, tamoxifen treatment, raloxifene treatment, oral contraceptive use, hormone replacement therapy, and . Management of thrombotic risk and thrombotic events should follow established guidelines and fit the clinical circumstance. This result cannot predict the occurrence or recurrence of a thrombotic event. Comment: Genetic counseling is recommended to discuss the potential clinical implications of positive results, as well as recommendations for testing family members. Genetic Coordinators are available for health care providers to discuss results at [phone] Test Details: Variant Analyzed: c.1601G>A (p. [id number]), referred to as Factor V Leiden Methods/Limitations: DNA analysis of the F5 gene (NM_000130.5) was performed by PCR amplification followed by restriction enzyme analysis. The diagnostic sensitivity is >99%. Results must be combined with clinical information for the most accurate interpretation. Molecular-based testing is highly accurate, but as in any laboratory test, diagnostic errors may occur. False positive or false negative results may occur for reasons that include genetic variants, blood transfusions, bone marrow transplantation, somatic or tissue-specific mosaicism, mislabeled samples, or erroneous representation of family relationships. This test was developed and its performance characteristics determined by [employer]. It has not been cleared or approved by the Food and Drug Administration. References: Alcira S, Amanda THAO, Taj R, Gilberto WW, Ismael JH; [facility] Professional Practice and Guidelines Committee. Addendum: [place] [employer] consensus statement on factor V Leiden mutation testing. Jessica Med. 2020Aug 06. doi: 10.1038/l37913-304-61636-z. PMID: 48345984. Michael CONWAY. Factor V Leiden Thrombophilia. 1998October 15 (Updated 2017Jun 07). In: Jose Daniel MP, Mar HH, Anirudh RA, et al., editors. Philippe(R) (Internet). [place] ([place]): [facility]; 5183-2449. Available from: https://www.ncbi.nlm.nih.gov/books/KEJ5254/ Kelvin Tapia, Amanda THAO, Wilbur X, Mak B, Laz EB, Lucía P, Geno CS; [facility] Brass Molder Helper Committee. Venous thromboembolism laboratory testing (factor V Leiden and factor II c.*97G>A), 2018 update: a technical standard of the [place] [employer] (ACMG). Jessica Med. 2017;20(12):1769-2544. doi: 10.1038/a69162-519-9306-m. Epub 2017Mar 08. PMID: [id number]. Reviewed By Comment 09/01/2024 4:11 PM CDT [facility] ([facility]) Comment: Technical Component performed at [facility] RTP Professional Component performed by: [employer] Matti Green, Ph.D., [facility] Director, Molecular Genetics [address] [place], [place] [id number] Blood BLOOD SPECIMEN / Unknown Venipuncture / Unknown 08/26/2024 3:45 PM CDT 08/26/2024 3:49 PM CDT [facility] ([facility]) - 09/01/2024 4:11 PM CDT Performed at: [facility] [address] [place], [place] [id number] [employer] Worker: Kadie Jones Formerly [facility], Phone: [phone] us Emerson Bryant MD LAB - COAGULATION ORDERABLES Fin al Result [facility] ([facility]) [address] [place] [address] * ANTITHROMBIN III ACTIVITY (08/26/2024 3:45 PM CDT) Pathologist [facility] Antithrombin III Activity 103.0 80.0 - 120.0 % 08/26/2024 7:49 PM CDT [facility] Blood BLOOD SPECIMEN / Unknown Venipuncture / Unknown 08/26/2024 3:45 PM CDT 08/26/2024 3:49 PM CDT Narrative [facility] - 08/26/2024 7:49 PM CDT Thrombin inhibitors (i.e., hirudin, argatroban...) present in the sample to be tested may lead to an over-estimation of the AT level. us Emerson Bryant MD LAB - COAGULATION ORDERABLES Fin al Result [address] [address], [facility] [phone] * (ABNORMAL) DIFFERENTIAL MANUAL (08/26/2024 3:22 PM CDT) Only the most recent of2 resultswithin the time period is included. Pathologist [facility] Neutrophil % 65 41 - 74 % 08/26/2024 4:09 PM CDT [facility] Lymphocyte % 27 17 - 47 % 08/26/2024 4:09 PM CDT [facility] Monocyte % 4 3 - 11 % 08/26/2024 4:09 PM CDT [facility] Eosinophil % 2 0 - 7 % 08/26/2024 4:09 PM CDT [facility] Basophil % 2 0 - 2 % 08/26/2024 4:09 PM CDT [facility] Neutrophil Absolute 4.62 1.60 - 7.50 x10E9/L 08/26/2024 4:09 PM CDT [facility] Lymphocyte Absolute 1.92 1.00 - 4.40 x10E9/L 08/26/2024 4:09 PM CDT [facility] Monocyte Absolute 0.28 0.15 - 1.00 x10E9/L 08/26/2024 4:09 PM CDT [facility] Eosinophil Absolute 0.14 0.00 - 0.60 x10E9/L 08/26/2024 4:09 PM CDT [facility] Basophil Absolute 0.14(H) 0.00 - 0.13 x10E9/L 08/26/2024 4:09 PM CDT [facility] RBC Morphology NORMAL 08/26/2024 4:09 PM T [facility] Blood BLOOD SPECIMEN / Unknown Venipuncture / Unknown 08/26/2024 3:22 PM CDT 08/26/2024 3:25 PM CDT us Emerson Bryant MD LAB - HEMATOLOGY ORDERABLES Demi l Result Performing Organization Address City/State/[facility] Co de Phone Number [facility] [address] [place], [place] [phone] * (ABNORMAL) CBC W AUTO DIFFERENTIAL (08/26/2024 3:22 PM CDT) Only the most recent of7 resultswithin the time period is included. [facility] Signature WBC 7.1 4.0 - 10.7 x10E9/L 08/26/2024 4:09 PM CDT [facility] RBC Count 3.75(L) 3.90 - 5.20 x10E12/L 08/26/2024 4:09 PM CDT [facility] Hemoglobin 11.5(L) 11.9 - 15.8 g/dL 08/26/2024 4:09 PM CDT [facility] Hematocrit 34.5(L) 34.8 - 46.1 % 08/26/2024 4:09 PM CDT [facility] MCV 92.0 80.0 - 98.0 fL 08/26/2024 4:09 PM CDT [facility] MCH 30.7 26.7 - 33.6 pg 08/26/2024 4:09 PM CDT [facility] MCHC 33.3 31.7 - 36.3 g/dL 08/26/2024 4:09 PM CDT [facility] RDW-CV 12.7 11.3 - 14.8 % 08/26/2024 4:09 PM CDT [facility] Platelet Count 329 150 - 420 x10E9/L 08/26/2024 4:09 PM CDT [facility] MPV 10.1 7.8 - 11.4 fL 08/26/2024 4:09 PM CDT [facility] Blood BLOOD SPECIMEN / Unknown Venipuncture / Unknown 08/26/2024 3:22 PM CDT 08/26/2024 3:25 PM CDT Emerson Bryant MD LAB - HEMATOLOGY ORDERABLES Demi valenzuela Result Performing Organization Address City/State/[facility] Co de Phone Number [facility] [address] [place] [address] * VAS Left Venous Duplex Ue (08/26/2024 1:44 PM CDT) Anatomical Region Laterality Modality Upper Extremity Ultrasound 08/26/2024 1:11 PM CDT Narrative Procedure Note Charbel Street MD - 08/26/2024 [facility] [address] [place] [place] [address] Upper Extremity Venous Ultrasound Report Pat.Name: ASHLEY HALL Pat.ID: [id number] St.Date: 08/26/2024 Refer.MD: Emerson Bryant Exam Time: 1:11:00 PM Study Type:UE Venous Age: 2 2000,24Y Sex: FEMALE Sonogrphr: Brinda Oh RVT Pat. Stat.:Inpatient Room: 559 stat ICD - 9: R60.0 Edema of left upper etremity CPT - 4: 83510 Reason for Study: Swelling -Arm/hand, left Procedures: Upper Extremity Venous - Left Race: [facility] Visit ID: [id number] ++++++++++++++++++++++++++++++++++++ SUMMARY: ++++++++++++++++++++++++++++++++++++ Acute superficial vein thrombosis noted in the left upper arm. Deep veins are normal. ++++++++++++++++++++++++++++++++++++ FINDINGS: ++++++++++++++++++++++++++++++++++++ Procedure: Venous duplex imaging of the left upper extremity, up to and including the internal jugular vein, was performed using color flow and spectral Doppler analysis. The contralateral subclavian vein was also examined. Study Quality: This study is of adequate technical quality. Lt Arm: There is acute occlusive thrombus in the cephalic vein extending from just below the shoulder to just above the wrist. All other vessels seen appear patent and compressible. The right subclavian vein demonstrated spontaneous and pulsatile flow. Signed 08/26/2024 05:14 PM Charbel Montiel MD Emerson Bryant MD VASCULAR LAB ORDERABLES Edited * (ABNORMAL) URINALYSIS REFLEX MICROSCOPIC REFLEX CULTURE (08/26/2024 11:25 AM CDT) Color UA Yellow Yellow, Straw 08/26/2024 12:37 PM CDT [facility] Clarity UA Turbid(A) Clear 08/26/2024 12:37 PM CDT [facility] Glucose UA Normal Normal 08/26/2024 12:37 PM CDT [facility] Bilirubin UA Negative Negative 08/26/2024 12:37 PM CDT [facility] Ketone UA Negative Negative 08/26/2024 12:37 PM CDT [facility] Specific [place] UA 1.024 1.005 - 1.030 08/26/2024 12:37 PM CDT [facility] Blood UA 2+(A) Negative 08/26/2024 12:37 PM CDT [facility] pH UA 6.0 5.0 - 9.0 pH 08/26/2024 12:37 PM CDT [facility] Protein UA Trace(A) Negative 08/26/2024 12:37 PM CDT [facility] Urobilinogen UA Normal Normal mg/dL 08/26/2024 12:37 PM CDT [facility] Nitrite UA Negative Negative 08/26/2024 12:37 PM CDT [facility] Leukocyte Esterase UA 500 SUN/uL(A) Negative 08/26/2024 12:37 PM CDT [facility] RBC UA 11-20(A) 0 - 5 # /hpf 08/26/2024 12:37 PM CDT [facility] WBC UA 51-100(A) 0 - 5 # /hpf 08/26/2024 12:37 PM CDT [facility] Bacteria UA Trace(A) None Seen 08/26/2024 12:37 PM CDT [facility] Squamous Epithelial Cells 6-10(A) 0 - 5 /hpf 08/26/2024 12:37 PM CDT [facility] Transitional Epithelial Cell UA 3-5(A) None Seen /HPF 08/26/2024 12:37 PM CDT [facility] Mucus UA 3+ /LPF 08/26/2024 12:37 PM CDT [facility] Urine URINE SPECIMEN OBTAINED BY CLEAN CATCH PROCEDURE / Unknown Collection / Unknown 08/26/2024 11:25 AM CDT 08/26/2024 12:25 PM CDT Narrative [facility] - 08/26/2024 12:37 PM CDT us Alan Vail MD LAB - URINALYSIS ORDERABLES Demi l Result [facility] [address] [place] [address] * TYPE + SCREEN PANEL (All [facility]) (08/21/2024 8:08 PM CDT) Only the most recent of2 resultswithin the time period is included. ABO Rh A POS 08/21/2024 9:19 PM CDT [facility] Comment:History checked. Antibody Screen NEG 9:19 PM CDT [facility] Blood Bank BLOOD SPECIMEN / Unknown Venipuncture / Unknown 08/21/2024 8:08 PM CDT 08/21/2024 8:10 PM CDT Mary Ann Gallardo MD LAB - BLOOD BANK ORDERABLES Fi nal Result Performing Organization Address [facility] Co de Phone Number [facility] [address] [place] [address] * SYPHILIS ANTIBODY CASCADING REFLEX (08/13/2024 8:03 AM CDT) [facility] Treponema pallidum Antibody Non Reactive Non Reactive 08/13/2024 9:47 AM CDT [facility] Comment: No Laboratory evidence of syphilis infection. Note: Circulating antibodies may be low or undetectable in early infection. If recent exposure is suspected, re-draw sample in 2-4 weeks and repeat testing. Blood BLOOD SPECIMEN / Unknown Lab Venipuncture / Unknown 08/13/2024 8:03 AM CDT 08/13/2024 9:02 AM CDT Hosea Portillo MD LAB - SEROLOGY ORDERABLES Final Result Performing Organization Address City/[facility]/ZIP Co de Phone Number [facility] [address] [place] [address] * (ABNORMAL) CBC W/O DIFFERENTIAL (08/13/2024 5:59 AM CDT) [facility] WBC 12.0(H) 4.0 - 10.7 x10E9/L 08/13/2024 6:24 AM CDT [facility] RBC Count 3.21(L) 3.90 - 5.20 x10E12/L 08/13/2024 6:24 AM CDT [facility] Hemoglobin 9.9(L) 11.9 - 15.8 g/dL 08/13/2024 6:24 AM CDT [facility] Hematocrit 30.1(L) 34.8 - 46.1 % 08/13/2024 6:24 AM CDT [facility] MCV 93.8 80.0 - 98.0 fL 08/13/2024 6:24 AM CDT [facility] MCH 30.8 26.7 - 33.6 pg 08/13/2024 6:24 AM CDT [facility] MCHC 32.9 31.7 - 36.3 g/dL 08/13/2024 6:24 AM CDT [facility] RDW-CV 13.6 11.3 - 14.8 % 08/13/2024 6:24 AM CDT [facility] Platelet Count 210 150 - 420 x10E9/L 08/13/2024 6:24 AM CDT [facility] MPV 11.2 7.8 - 11.4 fL 08/13/2024 6:24 AM CDT [facility] Blood BLOOD SPECIMEN / Unknown Lab Venipuncture / Unknown 08/13/2024 5:59 AM CDT 08/13/2024 6:06 AM CDT us Hosea Portillo MD LAB - HEMATOLOGY ORDERABLES Fin al Result Performing Organization Address City/State/[facility] Co de Phone Number [facility] [address] [place], [place] [phone] * PATHOLOGY TISSUE EXAM (STL) (08/12/2024 1:16 PM CDT) Case Report Surgical Pathology Report Case: [id number] Authorizing Provider: Ruiz Gutierrez MD Collected: 08/12/2024 01:16 PM Ordering Location: [facility] Received: 08/12/2024 02:06 PM Pathologist: Blaire Ramirez MD Specimen: Placenta 3rd Trimester 08/14/2024 1:10 PM CDT [facility] Final Diagnosis Placenta, delivery - Markedly hypermature placenta - membranes with no histopathologic abnormality - Three-vessel umbilical cord with no histopathologic abnormality 08/14/2024 1:10 PM [facility] at 1310 CDT Clinical History The patient is a 24-year-old woman at 34 weeks, 0 days gestation. Procedure: delivery. 08/14/2024 1:10 PM CDT [facility] Gross Description The specimen is identified with the patient's name and date of . Received fresh and placed in formalin, specimen A, placenta is a placental disc with attached umbilical cord and membranes. The umbilical cord is inserted centrally, 6 cm from margin, 17.2 cm long and 1.2 cm diameter. The cord is tri-vascular appropriately coiled. The membranes insert marginally and are purple-red and mildly opaque. The surface is blue-purple with partially tortuous vasculature. The maternal surface is disrupted with appears complete, with eccentric yellow-white thickened lesions, 0.5-2 cm in greatest dimension, involving 5-10% of maternal surface and <5% of the cut surfaces. The placental disc is 368 g, 15 x 14 x 2.5 cm. Sectioning shows red-brown, spongy cut surfaces. [employer] Insurance sections submitted as follows: A1-umbilical cord and membrane roll, E0-P0-wsrrowsv, A4-maternal surface yellow-white thickened areas/lesions. LJ 08/14/2024 1:10 PM CDT [facility] Microscopic Description Microscopic examination substantiates the above diagnosis. 08/14/2024 1:[facility] at [facility] 08/14/2024 1:10 PM T [facility] Disclaimer All histochemical and/or immunohistochemical results are interpreted with controls that demonstrate appropriate staining reactions before reporting results. Note on use of immunocytochemistry reagents: This test was developed and its performance characteristic determined by [facility], Department of Laboratory Medicine. It has not been cleared or approved by the U.S. Food and Drug Administration (FDA). The FDA has determined that such clearance or approval is not necessary. The test is used for clinical purpose. It should not be regarded as investigational or for research. This laboratory is certified to perform high complexity testing. The performance characteristics of the IHC/ADRIAN assays have been validated on formalin-fixed paraffin embedded tissues only. The assays have not been validated on decalcified tissues. Results should be interpreted with caution. 08/14/2024 1:10 PM CDT [facility] Embedded Images 08/14/2024 1:10 PM CDT [facility] Pathology/Cytolo gy ENTIRE PLACENTA / Unknown 08/12/2024 1:16 PM CDT 08/12/2024 2:06 PM CDT Comment:Pre-op diagnosis: Nonreassuring tracing Ruiz Gutierrez MD LAB - PATHOLOGY/CYTOLOGY KIMBERLI PULIDO Final Result [facility] [address] [place] [address] * BLOOD GASES CORD ROZINA (ISTAT) (08/12/2024 1:04 PM CDT) pH Cord Venous POCT 7.32 7.28 - 7.40 pH 08/12/2024 1:08 PM CDT [facility] pCO2 Cord Venous POCT 43.3 35 - 45 mm hg 08/12/2024 1:08 PM CDT [facility] pO2 Cord Venous POCT 22 22 - 33 mm hg 08/12/2024 1:08 PM CDT [facility] HCO3 Cord Arterial POCT 22.3 22 - 24 mmol/L 08/12/2024 1:08 PM CDT [facility] BE Cord Venous POCT Calc -4 -6.4 - 1.6 mmol/L 08/12/2024 1:08 PM CDT [facility] TCO2 Cord Venous POCT 24 22 - 30 mmol/L 08/12/2024 1:08 PM CDT [facility] O2 Saturation % Cord Venous Calc POCT 33 % 08/12/2024 1:08 PM CDT [facility] Site CORD ROZINA 08/12/2024 1:08 PM CDT [facility] Sample iSTAT CORD ROZINA 08/12/2024 1:08 PM CDT [facility] Blood CORD BLOOD SPECIMEN / Unknown 08/12/2024 1:04 PM CDT 08/12/2024 1:08 PM CDT Hosea Portillo MD LAB - POINT OF CARE ORDERABLES Final Result Performing Organization Address [facility]/ZIP Co de Phone Number [facility] [address] [place] [address] * (ABNORMAL) BLOOD GASES CORD ART (ISTAT) (08/12/2024 1:00 PM CDT) pH Cord Arterial POCT 7.27 7.20 - 7.34 pH 08/12/2024 1:08 PM CDT [facility] pCO2 Cord Arterial POCT 53.3 45 - 55 mm hg 08/12/2024 1:08 PM CDT [facility] pO2 Cord Arterial POCT 16 12 - 25 mm hg 08/12/2024 1:08 PM CDT [facility] HCO3 Cord Arterial POCT 24.3(H) 22 - 24 mmol/L 08/12/2024 1:08 PM CDT [facility] BE Cord Arterial POCT -4(L) -2.9 - 8.3 mmol/L 08/12/2024 1:08 PM CDT [facility] TCO2 Cord Arterial POCT 26 mmol/L 08/12/2024 1:08 PM CDT [facility] O2 Saturation Cord Art % Calc POCT 18 % 08/12/2024 1:08 PM CDT [facility] Site CORD ART 08/12/2024 1:08 PM CDT [facility] Sample iSTAT CORD ART 08/12/2024 1:08 PM CDT [facility] Blood CORD BLOOD SPECIMEN / Unknown 08/12/2024 1:00 PM CDT 08/12/2024 1:08 PM CDT Hosea Portillo MD LAB - POINT OF CARE ORDERABLES Final Result Performing Organization Address [facility] Co de Phone Number [facility] [address] [place] [address] * EPIDURAL BLOCK PERF (08/11/2024 11:22 PM CDT) Narrative Allison Sutton APRN-PARTS SALVAGER - 08/11/2024 11:22 PM CDT Allison Sutton APRN-CRNA 08/11/2024 11:22 PM Neuraxial Block Note Pre-Procedure: Procedure Name: Neuraxial Block Patient Location: OB Indications: labor analgesia and at patient's request Pre-Anesthetic Checklist: Patient identified, IV Checked, Risks and benefits discussed, Surgical consent verified, Monitors and equipment, Site examined, Pre-op evaluation done, Time-out performed, Informed consent obtained, Questions answered/anesthesia questions answered and Allergies reviewed Anticoagulation/ Anti-thrombosis status confirmed? Yes Supplemental O2: room air Monitors: BP, continuous pluse ox and EKG Patient Condition: awake Patient Sedated? No Procedure: Block Type: Epidural Prep: Betadine Sterile Field: mask, cap/hat, sterile established and sterile gloves Approach: midline Epidural Block: Is this procedure for postop pain? No Needle Type: Tuohy Needle gauge: 18 G Needle length: 90 mm Placement Site: L3-L4 Number of Attempts: 1 Loss of Resistance: 9 air Catheter threaded to (cm): 15 Catheter length at skin (cm): 15 CSF Aspirated from catheter: No Blood Aspirated: No Test Dose: lidocaine 1.5% with 1-200,000 epinephrine 3 mL Test Dose Response: No Epidural Infusion Medications: Bupivacaine: 0.125% with 2mcg/ml Fentanyl started at, Degree of difficulty: none Procedure Tolerance: tolerated well Sensory Level: T10 Motor Blockade: No Position post procedure: head of bed elevated 30 degrees, left uterine displacement Vital Signs: Vital signs monitored and stable throughout. See anesthesia record for details., Vital signs moniitored and stable throughout. See nursing vitals flowsheet for details., heart tones monitored and stable throughout. Staff: Anesthesia Provider: Allison Sutton APRN-PARTS SALVAGER - performed the procedure Additional Notes: Pt understands indications and complications of epidural placement. Pt and family in room had no further questions about epidural placement before procedure start. Pt coached through all steps of epidural placement and tolerated the procedure well. Good MURALI felt and epidural placed through 18g tuohy needle without pain or parasthesia. Pt indicated test dose negative of circumoral numbness, tinnitus, or increased heart rate/ blood pressure at time noted. Miles Potter MD GENERAL ANESTHESIA ORDERABLE S Final Result from Last 3 Months Insurance ANTH MEDICAID - [place] MEDICAID - [facility] Advance Directives * Full Code (Latest Code Status on File) Date Activated Date Inactivated Comments 08/13/2024 7:42 AM 08/16/2024 6:04 PM * Full Code Date Activated Date Inactivated Comments 08/11/2024 9:30 AM 08/13/2024 7:42 AM * Full Code Date Activated Date Inactivated Comments 08/07/2024 6:33 PM 08/11/2024 9:29 AM Care Teams [employer] Relationship Specialty Start Date End Date Bushra Tello DO [address] [place] [address] PCP - General Family Medicine 07/23/24
--- OUTSIDE RECORDS SUMMARY | 2024-11-11 19:30 | XMS_ITS | Data Portability ---
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 Procedures None recorded. Surgeries None recorded. Imaging US, obstetric, 2nd or 3rd trimester 2023 024 [email or web address] [address], [address], [place], [address], 4 09:02:20 Medication Orders None recorded. Patient TargetsNo targets recorded. Patient InstructionsNo instructions recorded. Reason for Referral None Reported. Results Created Date Observation Date Name Description Value Unit Range Abnormal Flag Note LastModifiedBy Organization Detail LastModifiedTime 04/28/20 24 04/28/2024 PROTE IN/CR EATIN INE RATIO , URINE creatinine, urine 36.9 mg/dL R-No refer ence range estab lishe d for this assay Not Available [facility] (Lab) [address], [place], [address], 04/29/2024 05:18:31 04/28/20 24 04/28/2024 PROTE IN/CR EATIN INE RATIO , URINE protein, urine <4 mg/dL R-No refer ence range estab lishe d for this assay Not Available [facility] (Lab) [address], [place], [address], 04/29/2024 05:18:31 04/28/20 24 04/28/2024 PROTE IN/CR [...] fican t prote inuri a. Not Available [facility] (Lab) [address], [place], [address], 04/29/2024 05:18:31 04/28/20 24 04/28/2024 CBC W/DIF F WBC 8.6 10'3/ uL 3.5-10 .5 Not Available [facility] (Lab) [address], [place], [address], 04/29/2024 06:59:40 04/28/20 24 04/28/2024 CBC W/DIF F RBC 3.97 10'6/ uL (based on docume nted legal sex) 3.80-5 .20 Not Available [facility] (Lab) [address], [place], [address], 04/29/2024 06:59:40 04/28/20 24 04/28/2024 CBC W/DIF F HGB 12.3 g/dL (based on docume nted legal sex) 11.6-1 5.4 Not Available [facility] (Lab) [address], [place], [address], 04/29/2024 06:59:40 04/28/20 24 04/28/2024 CBC W/DIF F HCT 36.0 % (based on docume nted legal sex) 34.0-4 5.0 Not Available [facility] (Lab) [address], [place], [address], 04/29/2024 06:59:40 04/28/20 24 04/28/2024 CBC W/DIF F MCV 90.7 fL 80.0-9 9.0 Not Available [facility] (Lab) [address], [place], [address], 04/29/2024 06:59:40 04/28/20 24 04/28/2024 CBC W/DIF F MCH 31.0 pg 27.0-3 4.0 Not Available [facility] (Lab) [address], [place], [address], 04/29/2024 06:59:40 04/28/20 24 04/28/2024 CBC W/DIF F MCHC 34.2 g/dL 32.0-3 5.5 Not Available [facility] (Lab) [address] [facility], [place], [address], 04/29/2024 06:59:40 04/28/20 24 04/28/2024 CBC W/DIF F RDW 13.2 % 11.0-1 5.0 Not Available [facility] (Lab) [address] [facility], [place], [address], 04/29/2024 06:59:40 04/28/20 24 04/28/2024 CBC W/DIF F plt 288 10'3/ uL 150-40 0 Not Available [facility] (Lab) [address] [facility], [place], [address], 04/29/2024 06:59:40 04/28/20 24 04/28/2024 CBC W/DIF F MPV 11.5 fL 8.8-12 .1 Not Available [facility] (Lab) [address] [facility], [place], [address], 04/29/2024 06:59:40 04/28/20 24 04/28/2024 CBC W/DIF F NRBC's 0.0 % 0.0 Not Available [facility] (Lab) [address] [facility], [place], [address], 04/29/2024 06:59:40 04/28/20 24 04/28/2024 CBC W/DIF F absolute NRBCs 0.0 10'3/ uL no refere nce range establ ished Not Available [facility] (Lab) [address] [facility], [place], [address], 04/29/2024 06:59:40 04/28/20 24 04/28/2024 CBC W/DIF F neutrophils 75.3 % 34.0-7 3.0 high Not Available [facility] (Lab) [address] [facility], [place], [address], 04/29/2024 06:59:40 04/28/20 24 04/28/2024 CBC W/DIF F lymphocytes 19.6 % 15.0-5 0.0 Not Available [facility] (Lab) [address] [facility], [place], [address], 04/29/2024 06:59:40 04/28/20 24 04/28/2024 CBC W/DIF F monocytes 4.1 % 1.0-15 .0 Not Available [facility] (Lab) [address] [facility], [place], [address], 04/29/2024 06:59:40 04/28/20 24 04/28/2024 CBC W/DIF F eosinophils 0.5 % 0.0-8. 0 Not Available [facility] (Lab) [address] [place], [address], 04/29/2024 06:59:40 04/28/20 24 04/28/2024 CBC W/DIF F basophils 0.3 % 0.0-2. 0 Not Available [facility] (Lab) [address] [facility], [place], [address], 04/29/2024 06:59:40 04/28/20 24 04/28/2024 CBC W/DIF F immature granulocytes 0.2 % no define d refere nce range Not Available [facility] (Lab) [address] [facility], [place], [address], 04/29/2024 06:59:40 04/28/20 24 04/28/2024 CBC W/DIF F absolute neutrophils 6.5 10'3/ uL 1.5-8. 0 Not Available [facility] (Lab) [address] [facility], [place], [address], 04/29/2024 06:59:40 04/28/20 24 04/28/2024 CBC W/DIF F absolute lymphocytes 1.7 10'3/ uL 1.0-4. 0 Not Available [facility] (Lab) [address] [place], [address], 04/29/2024 06:59:40 04/28/20 24 04/28/2024 CBC W/DIF F absolute monocytes 0.4 10'3/ uL 0.2-1. 0 Not Available [facility] (Lab) [address] [facility], [place], [address], 04/29/2024 06:59:40 04/28/20 24 04/28/2024 CBC W/DIF F absolute eosinophils 0.0 10'3/ uL 0.0-0. 6 Not Available [facility] (Lab) [address] [facility], [place], [address], 04/29/2024 06:59:40 04/28/20 24 04/28/2024 CBC W/DIF F absolute basophils 0.0 10'3/ uL 0.0-0. 3 Not Available [facility] (Lab) [address] [facility], [place], [address], 04/29/2024 06:59:40 04/28/20 24 04/28/2024 CBC W/DIF [...] resul ts are expec roseann. Not Available [facility] (Lab) [address] [facility], [place], [address], 04/29/2024 06:59:40 04/28/20 24 04/28/2024 URIC ACID uric acid 4.8 mg/dL 2.3-6. 6 Not Available [facility] (Lab) [address] [facility], [place], [address], 04/29/2024 06:59:41 04/28/20 24 04/28/2024 CMP(C OMPRE HENSI VE METAB OLIC PANEL ) sodium 137 mmol/ L 133-14 6 Not Available [facility] (Lab) [address] [facility], [place], [address], 04/29/2024 06:59:41 04/28/20 24 04/28/2024 CMP(C OMPRE HENSI VE METAB OLIC PANEL ) potassium 3.7 mmol/ L 3.5-5. 1 Not Available [facility] (Lab) [address] [facility], [place], [address], 04/29/2024 06:59:41 04/28/20 24 04/28/2024 CMP(C OMPRE HENSI VE METAB OLIC PANEL ) chloride 102 mmol/ L 98-107 Not Available [facility] (Lab) [address] [facility], [place], [address], 04/29/2024 06:59:41 04/28/20 24 04/28/2024 CMP(C OMPRE HENSI VE METAB OLIC PANEL ) carbon dioxide 24 mmol/ L 21-31 Not Available [facility] (Lab) [address] [facility], [place], [address], 04/29/2024 06:59:41 04/28/20 24 04/28/2024 CMP(C OMPRE HENSI VE METAB OLIC PANEL ) anion gap 11 mmol/ L 4-13 Not Available [facility] (Lab) [address] [facility], [place], [address], 04/29/2024 06:59:41 04/28/20 24 04/28/2024 CMP(C OMPRE HENSI VE METAB OLIC PANEL ) blood urea nitrogen 5 mg/dL 7-25 low Not Available [facility] (Lab) [address] [facility], [place], [address], 04/29/2024 06:59:41 04/28/20 24 04/28/2024 CMP(C OMPRE HENSI VE METAB OLIC PANEL ) creatinine 0.54 mg/dL 0.60-1 .30 low Not Available [facility] (Lab) [address] [place], [address], 04/29/2024 06:59:41 04/28/20 24 04/28/2024 CMP(C OMPRE HENSI VE METAB OLIC PANEL ) egfrcr (CKD-epi 2020) >90 mL/mi n/1.7 3_m2 >=60 Not Available [facility] (Lab) [address], [place], [address], 04/29/2024 06:59:41 04/28/20 24 04/28/2024 CMP(C OMPRE HENSI VE METAB OLIC PANEL ) calcium 8.9 mg/dL 8.3-10 .5 Not Available [facility] (Lab) [address], [place], [address], 04/29/2024 06:59:41 04/28/20 24 04/28/2024 CMP(C OMPRE HENSI VE METAB OLIC PANEL ) glucose 82 mg/dL 70-100 Not Available [facility] (Lab) [address], [place], [address], 04/29/2024 06:59:41 04/28/20 24 04/28/2024 CMP(C OMPRE HENSI VE METAB OLIC PANEL ) protein, total 6.6 g/dL 6.4-8. 3 Not Available [facility] (Lab) [address], [place], [address], 04/29/2024 06:59:41 04/28/20 24 04/28/2024 CMP(C OMPRE HENSI VE METAB OLIC PANEL ) albumin 3.8 g/dL 3.5-5. 0 Not Available [facility] (Lab) [address] [facility], [place], [address], 04/29/2024 06:59:41 04/28/20 24 04/28/2024 CMP(C OMPRE HENSI VE METAB OLIC PANEL ) ALT 13 units /L 9-43 Not Available [facility] (Lab) [address], [place], [address], 04/29/2024 06:59:41 04/28/20 24 04/28/2024 CMP(C OMPRE HENSI VE METAB OLIC PANEL ) alkaline phosphatase 83 units /L 34-104 Not Available [facility] (Lab) [address] [facility], [place], [address], 04/29/2024 06:59:41 04/28/20 24 04/28/2024 CMP(C OMPRE HENSI VE METAB OLIC PANEL ) AST 13 units /L 13-39 Not Available [facility] (Lab) [address] [facility], [place], [address], 04/29/2024 06:59:41 04/28/20 24 04/28/2024 CMP(C OMPRE HENSI VE METAB OLIC PANEL ) bilirubin, total 0.3 mg/dL 0.2-1. 2 Not Available [facility] (Lab) [address] [facility], [place], [address], 04/29/2024 06:59:41 06/03/20 24 06/03/2024 CMP/C BC/UR IC ACID WBC 9.6 10'3/ uL 3.5-10 .5 Not Available [facility] (Lab) [address] [place], [address], 06/04/2024 04:47:24 06/03/20 24 06/03/2024 CMP/C BC/UR IC ACID RBC 3.85 10'6/ uL (based on docume nted legal sex) 3.80-5 .20 Not Available [facility] (Lab) [address] [facility], [place], [address], 06/04/2024 04:47:24 06/03/20 24 06/03/2024 CMP/C BC/UR IC ACID HGB 12.1 g/dL (based on docume nted legal sex) 11.6-1 5.4 Not Available [facility] (Lab) [address] [place], [address], 06/04/2024 04:47:24 06/03/20 24 06/03/2024 CMP/C BC/UR IC ACID HCT 36.4 % (based on docume nted legal sex) 34.0-4 5.0 Not Available [facility] (Lab) [address], [place], [address], 06/04/2024 04:47:24 06/03/20 24 06/03/2024 CMP/C BC/UR IC ACID MCV 94.5 fL 80.0-9 9.0 Not Available [facility] (Lab) [address] [facility], [place], [address], 06/04/2024 04:47:24 06/03/20 24 06/03/2024 CMP/C BC/UR IC ACID MCH 31.4 pg 27.0-3 4.0 Not Available [facility] (Lab) [address] [facility], [place], [address], 06/04/2024 04:47:24 06/03/20 24 06/03/2024 CMP/C BC/UR IC ACID MCHC 33.2 g/dL 32.0-3 5.5 Not Available [facility] (Lab) [address] [facility], [place], [address], 06/04/2024 04:47:24 06/03/20 24 06/03/2024 CMP/C BC/UR IC ACID RDW 13.3 % 11.0-1 5.0 Not Available [facility] (Lab) [address] [facility], [place], [address], 06/04/2024 04:47:24 06/03/20 24 06/03/2024 CMP/C BC/UR IC ACID plt 291 10'3/ uL 150-40 0 Not Available [facility] (Lab) [address] [facility], [place], [address], 06/04/2024 04:47:24 06/03/20 24 06/03/2024 CMP/C BC/UR IC ACID MPV 11.8 fL 8.8-12 .1 Not Available [facility] (Lab) [address] [facility], [place], [address], 06/04/2024 04:47:24 06/03/20 24 06/03/2024 CMP/C BC/UR IC ACID NRBC's 0.0 % 0.0 Not Available [facility] (Lab) [address] [facility], [place], [address], 06/04/2024 04:47:24 06/03/20 24 06/03/2024 CMP/C BC/UR IC ACID absolute NRBCs 0.0 10'3/ uL no refere nce range establ ished Not Available [facility] (Lab) [address] [facility], [place], [address], 06/04/2024 04:47:24 06/03/20 24 06/03/2024 CMP/C BC/UR IC ACID neutrophils 77.7 % 34.0-7 3.0 high Not Available [facility] (Lab) [address] [place], [address], 06/04/2024 04:47:24 06/03/20 24 06/03/2024 CMP/C BC/UR IC ACID lymphocytes 17.0 % 15.0-5 0.0 Not Available [facility] (Lab) [address] [place], [address], 06/04/2024 04:47:24 06/03/20 24 06/03/2024 CMP/C BC/UR IC ACID monocytes 4.3 % 1.0-15 .0 Not Available [facility] (Lab) [address] [place], [address], 06/04/2024 04:47:24 06/03/20 24 06/03/2024 CMP/C BC/UR IC ACID eosinophils 0.4 % 0.0-8. 0 Not Available [facility] (Lab) [address] [place], [address], 06/04/2024 04:47:24 06/03/20 24 06/03/2024 CMP/C BC/UR IC ACID basophils 0.2 % 0.0-2. 0 Not Available [facility] (Lab) [address] [place], [address], 06/04/2024 04:47:24 06/03/20 24 06/03/2024 CMP/C BC/UR IC ACID immature granulocytes 0.4 % no define d refere nce range Not Available [facility] (Lab) [address] [facility], [place], [address], 06/04/2024 04:47:24 06/03/20 24 06/03/2024 CMP/C BC/UR IC ACID absolute neutrophils 7.5 10'3/ uL 1.5-8. 0 Not Available [facility] (Lab) [address] [place], [address], 06/04/2024 04:47:24 06/03/20 24 06/03/2024 CMP/C BC/UR IC ACID absolute lymphocytes 1.6 10'3/ uL 1.0-4. 0 Not Available [facility] (Lab) [address] [place], [address], 06/04/2024 04:47:24 06/03/20 24 06/03/2024 CMP/C BC/UR IC ACID absolute monocytes 0.4 10'3/ uL 0.2-1. 0 Not Available [facility] (Lab) [address] [place], [address], 06/04/2024 04:47:24 06/03/20 24 06/03/2024 CMP/C BC/UR IC ACID absolute eosinophils 0.0 10'3/ uL 0.0-0. 6 Not Available [facility] (Lab) [address] [place], [address], 06/04/2024 04:47:24 06/03/20 24 06/03/2024 CMP/C BC/UR IC ACID absolute basophils 0.0 10'3/ uL 0.0-0. 3 Not Available [facility] (Lab) [address], [place], [address], 06/04/2024 04:47:24 06/03/20 24 06/03/2024 CMP/C BC/UR [...] resul ts are expec roseann. Not Available [facility] (Lab) [address], [place], [address], 06/04/2024 04:47:24 06/03/20 24 06/03/2024 CMP/C BC/UR IC ACID uric acid 4.8 mg/dL 2.3-6. 6 Not Available [facility] (Lab) [address], [place], [address], 06/04/2024 04:47:24 06/03/20 24 06/03/2024 CMP/C BC/UR IC ACID sodium 136 mmol/ L 133-14 6 Not Available [facility] (Lab) [address] [facility], [place], [address], 06/04/2024 04:47:24 06/03/20 24 06/03/2024 CMP/C BC/UR IC ACID potassium 4.1 mmol/ L 3.5-5. 1 Not Available [facility] (Lab) [address] [facility], [place], [address], 06/04/2024 04:47:24 06/03/20 24 06/03/2024 CMP/C BC/UR IC ACID chloride 103 mmol/ L 98-107 Not Available [facility] (Lab) [address], [place], [address], 06/04/2024 04:47:24 06/03/20 24 06/03/2024 CMP/C BC/UR IC ACID carbon dioxide 23 mmol/ L 21- Not Available [facility] (Lab) [address], [place], [address], 06/04/2024 04:47:24 06/03/20 24 06/03/2024 CMP/C BC/UR IC ACID anion gap 10 mmol/ L 4-13 Not Available [facility] (Lab) [address] [facility], [place], [address], 06/04/2024 04:47:24 06/03/20 24 06/03/2024 CMP/C BC/UR IC ACID blood urea nitrogen 9 mg/dL 7-25 Not Available [facility] (Lab) [address], [place], [address], 06/04/2024 04:47:24 06/03/20 24 06/03/2024 CMP/C BC/UR IC ACID creatinine 0.57 mg/dL 0.60-1 .30 low Not Available [facility] (Lab) [address] [facility], [place], [address], 06/04/2024 04:47:24 06/03/20 24 06/03/2024 CMP/C BC/UR IC ACID egfrcr (CKD-epi 2020) >90 mL/mi n/1.7 3_m2 >=60 Not Available [facility] (Lab) [address], [place], [address], 06/04/2024 04:47:24 06/03/20 24 06/03/2024 CMP/C BC/UR IC ACID calcium 9.1 mg/dL 8.3-10 .5 Not Available [facility] (Lab) [address] [facility], [place], [address], 06/04/2024 04:47:24 06/03/20 24 06/03/2024 CMP/C BC/UR IC ACID glucose 95 mg/dL 70-100 Not Available [facility] (Lab) [address] [facility], [place], [address], 06/04/2024 04:47:24 06/03/20 24 06/03/2024 CMP/C BC/UR IC ACID protein, total 6.9 g/dL 6.4-8. 3 Not Available [facility] (Lab) [address] [facility], [place], [address], 06/04/2024 04:47:24 06/03/20 24 06/03/2024 CMP/C BC/UR IC ACID albumin 3.8 g/dL 3.5-5. 0 Not Available [facility] (Lab) [address] [facility], [place], [address], 06/04/2024 04:47:24 06/03/20 24 06/03/2024 CMP/C BC/UR IC ACID ALT 14 units /L 9-43 Not Available [facility] (Lab) [address] [facility], [place], [address], 06/04/2024 04:47:24 06/03/20 24 06/03/2024 CMP/C BC/UR IC ACID alkaline phosphatase 96 units /L 34-104 Not Available [facility] (Lab) [address] [facility], [place], [address], 06/04/2024 04:47:24 06/03/20 24 06/03/2024 CMP/C BC/UR IC ACID AST 12 units /L 13-39 low Not Available [facility] (Lab) [address] [facility], [place], [address], 06/04/2024 04:47:24 06/03/20 24 06/03/2024 CMP/C BC/UR IC ACID bilirubin, total 0.3 mg/dL 0.2-1. 2 Not Available [facility] (Lab) [address] [place], [address], 06/04/2024 04:47:24 06/03/20 24 06/03/2024 PROTE IN/CR EATIN INE RATIO , URINE creatinine, urine 101.8 mg/dL R-No refer ence range estab lishe d for this assay Not Available [facility] (Lab) [address] [facility], [place], [address], 06/04/2024 04:47:26 06/03/20 24 06/03/2024 PROTE IN/CR EATIN INE RATIO , URINE protein, urine 19 mg/dL R-No refer ence range estab lishe d for this assay Not Available [facility] (Lab) [address] [facility], [place], [address], 06/04/2024 04:47:26 06/03/20 24 06/03/2024 PROTE IN/CR [...] fican t prote inuri a. Not Available [facility] (Lab) [address] [facility], [place], [address], 06/04/2024 04:47:26 07/02/19 25 07/02/2024 HEMOG LOBIN (HGB) HGB 11.8 g/dL (based on docume nted legal sex) 11.6-1 5.4 Not Available [facility] (Lab) [address] [facility], [place], [address], 07/03/2024 12:58:59 07/02/19 25 07/02/2024 HEMAT OCRIT (HCT) HCT 34.9 % (based on docume nted legal sex) 34.0-4 5.0 Not Available [facility] (Lab) [address] [facility], [place], [address], 07/03/2024 12:58:59 07/02/19 25 07/02/2024 GTT - GESTA KEE L SCREE N, ACOG OB glucose, 1 hour screen 103 mg/dL 70-135 Not Available [facility] (Lab) [address] [facility], [place], [address], 07/03/2024 12:59:00 07/02/19 25 07/02/2024 HIV 1/2 ANTIG EN/AN TIBOD Y, REFLE X CONFI RMATI ON HIV antigen/anti body Nonrea ctive nonrea ctive HIV-1 antig en and HIV-1 /HIV- 2 antib odies were not detec roseann. No labor atory evide nce of HIV infec tion. Not Available [facility] (Lab) [address] [facility], [place], [address], 07/03/2024 12:59:00 07/02/19 25 07/02/2024 RPR SCREE N, REFLE X TITER /CONF IRMAT ION RPR screen Nonrea ctive nonrea ctive Not Available [facility] (Lab) [address] [place], [address], 07/03/2024 12:59:00 05/05/20 24 05/06/2024 US, obste tric, 2nd or 3rd trime ster No observ ation record ed. [email or web address] [place], [place], [address], 05/06/2024 13:02:24 05/05/20 24 05/05/2024 US, obste tric, follo w-up No observ ation record ed. [email or web address] [address], [place], [address], 05/05/2024 23:01:08 06/02/20 24 05/30/2024 US, obste tric, follo w-up No observ ation record ed. [email or web address] [facility] [address] [facility] [place], [address], 06/06/2024 10:12:25 12/30/20 24 05/30/2024 US, obste tric, follo w-up No observ ation record ed. [address] [facility] [address], [address], 06/05/2024 07:25:53 06/23/19 25 05/30/2024 US, obste tric, follo w-up No observ ation record ed. [address] [facility], [place], [address], 06/27/2024 13:41:49 07/09/19 25 07/09/2024 US, obste tric, bioph ysica l profi le + non-s tress test No observ ation record ed. [address] [facility] [address], [address], 07/10/2024 15:11:21 07/09/19 25 07/09/2024 US, obste tric, bioph ysica l profi le + non-s tress test No observ ation record ed. [address] [facility] [address], [address], 07/14/2024 10:13:03 07/09/19 25 07/09/2024 US, obste tric, bioph ysica l profi le + non-s tress test No observ ation record ed. [address] [facility] [address], [address], 07/14/2024 10:13:24 07/13/19 25 07/13/2024 non-s tress test No observ ation record ed. [address], [place], [address], 07/25/2024 14:02:00 07/21/19 25 07/18/2024 US, obste tric, follo w-up No observ ation record ed. [address] [facility] [address] [place], [address], 07/22/2024 15:44:33 07/24/19 25 07/23/2024 US, obste tric, follo w-up No observ ation record ed. [email or web address] [facility] [place] [address], [place], [address], 07/28/2024 22:47:52 07/28/19 25 07/28/2024 non-s tress test No observ ation record ed. [address], [place], [address], 07/31/2024 10:53:46 08/01/19 25 08/01/2024 [place], obste tric, follo w-up No observ ation record ed. [address] [facility] [address], [address], 08/03/2024 22:08:00 08/05/19 25 08/01/2024 [place], obste tric, follo w-up No observ ation record ed. [address] [facility] [address], [address], 08/04/2024 22:16:09 08/09/19 25 08/07/2024 [place], obste tric, follo w-up No observ ation record ed. [email or web address] [facility] [address] , [place], [address], 08/11/2024 09:42:25 Result Notes None recorded. Problems Name Problem SNOMED Code Status Onset Date Resolution Date Notes Provider Name and Address Organization Details Recorded Time Surveill ance of contrace ption Completed 201706/22/2020 Encounte r for surveill ance of contrace ptives, unspecif ied;Ray rded Elsewher e: No Locat ion: [facility] S ource: EHR Skid Wrapper gabi: N Chinmayti ce ID: [id number] Jordi lable Time: 02:45:00 PM Carmen goldberg, [facility] 1 11:56:[address] Concept Completed 201706/22/2020 Well woman check w/o abnormal finding; Recorded Elsewher e: No Locat ion: [facility] S ource: EHR Skid Wrapper gabi: N Practi ce ID: 0001 Jordi lable Time: 02:45:00 PM Carmen goldberg, [facility] [address] 11:56:[address] Concept Completed 201706/22/2020 Encntr for routine child health exam w/o abnormal findings ;Recorde d Elsewher e: No Locat ion: [facility] S ource: EHR Skid Wrapper gabi: N Chinmayti ce ID: 0001 Jordi lable Time: 02:45:00 PM Carmen goldberg, [facility] 1 11:56:00 Uses combined oral contrace ption [id number] Completed 201706/22/2020 Encounte r for surveill ance of contrace ptive pills;Pr actice ID: 0001 Carmen Vasquez [facility], [facility] 1 11:55:58 Hyperten sive disorder 87178440 Active 2022 Praveena Vinson [facility], [facility] 3 14:50:42 Mixed anxiety and depressi ve disorder 618540232 Active not treated currentl y Mikael Trujillo MD [address], [place], [address], [place] [facility] 4 15:50:21 Asthma 912492013 Active Praveena Vinson [facility], [facility] 4 15:44:53 Pregnanc y 35133282 Active 2023 [facility] 4 15:44:34 Asthma 534665646 Active [facility] 4 15:44:53 [facility] hyperten loly 18430810 Active 38wk delivery 04/28 - 200mg bid [place], bASA 2 tablets daily & MFM consult per SB . MFM follow up schedule d 07/25 US only MFM pt monitor BP at home send weekly log Antental testing @ 32wks [facility] 5 15:30:56 Mixed anxiety and depressi ve disorder 546375304 Active not treated currentl y Mikael Trujillo MD [address], [place], [address], [facility] 4 15:50:21 Body mass index 30+ - obesity 505325593 Active weekly antenata l testing at 37wks [facility] 5 22:17:44 Body mass index 30+ - obesity 452147753 Active weekly antenata l testing at 37wks [facility] 5 22:17:44 Pre-ecla mpsia 301697955 Active PCR .60 [facility] 5 12:08:48 Problem Notes None recorded. Procedures Surgical History Date Name Laterality Status Provider Name and Address Organization Details Recorded Time 4 Date of Last Pap Smear completed Praveenabrian Vinson [facility] 02/11/2024 14:41:19 1 extraction of wisdom tooth completed Praveenabrian Vinson [facility] 06/08/2022 14:51:58 Imaging Results None recorded. Procedure Notes None recorded. Medical Equipment None Reported. Allergies Allergen ID Allergen Name Allergen Category Reaction Reaction Severity Criticality Documentation Date Start Date Code Code System Note Provider Name and Address Organization Details Recorded Time 25506 vancomyci n medicatio n Not available Not available Not available 02/11/2024 11811 Rx[facility] 4 14:46:41 Medications Name Sig Start [...] Available Sprintec (28) 0.25 mg-0.035 mg tablet Take 1 tablet every day by [...] Not Available Vitals Date Recorded Body weight Body mass index (BMI) Body height Systolic blood pressure Diastolic blood pressure Systolic blood pressure Diastolic blood pressure Systolic blood pressure Diastolic blood pressure Provider Name and Address Organization Details Last Updated DateTime 5 863323. 43862 g 39 kg/m2 170.18 cm 165 mm[Hg] 116 mm[Hg] 166 mm[Hg] 112 mm[Hg] 152 mm[Hg] 108 mm[Hg] Andreina Harris [facility] 5 17:09:52 Date Recorded Body weight Systolic blood pressure Diastolic blood pressure Provider Name and Address Organization Details Last Updated DateTime 05/05/2024 453165.799 32 g 165 mm[Hg] 110 mm[Hg] [facility] 05/05/2024 16:49:40 Date Recorded Body weight Systolic blood pressure Diastolic blood pressure Provider Name and Address Organization Details Last Updated DateTime 05/19/2024 699189.984 06 g 167 mm[Hg] 99 mm[Hg] [facility] 05/19/2024 16:31:59 Date Recorded Body weight Body mass index (BMI) Body height Systolic blood pressure Diastolic blood pressure Provider Name and Address Organization Details Last Updated DateTime 06/03/2024 580758.3 5354 g 37.9 kg/m2 170.18 cm 144 mm[Hg] 93 mm[Hg] [facility] 09:35:34 Social History Question Answer Notes LastModified by Organizat ion Details LastModified Time Tobacco Smoking Status Never Smoker [facility] 07/05/2022 10:29:23 Do You Have An Advance Directive? No [email or web address] Information n ot available 11/02/2020 Are You Blind Or Do You Have Difficulty Seeing? No [email or web address] Information n ot available 11/02/2020 What Is Your Level Of Caffeine Consumption? Occasional [email or web address] Information not available 06/22/2020 How Much Tobacco Do You Chew? None [email or web address] Information not available 11/02/2020 In The 14 Days Before Symptom Onset, Have You Had Close Contact With A Laboratory-confirm ed COVID-19 While That Case Was Ill? No [email or web address] Information n ot available 11/02/2020 In The 14 Days Before Symptom Onset, Have You Had Close Contact With A Person Who Is Under Investigation For COVID-19 While That Person Was Ill? No [email or web address] Information not available 11/02/2020 Have You Been To An Area Known To Be High Risk For COVID-19? No [email or web address] Information not available 11/02/2020 Are You Deaf Or Do You Have Serious Difficulty Hearing? No [email or web address] Information not available 11/02/2020 What Type Of Diet Are You Following? REGULAR [email or web address] Information n ot available 11/02/2020 What Is The Highest Grade Or Level Of School You Have Completed Or The Highest Degree You Have Received? [id number] [email or web address] Information not available 02/11/2024 Are There Any Guns Present In Your Home? Yes [email or web address] Information not available 11/02/2020 Do You Use Protection During Sex? No Information not available 02/11/2024 Do You Use Your Seat Belt Or Car Seat Routinely? Yes Information not available 11/02/2020 Do You Have Smoke And Carbon Monoxide Detectors In Your Home? Yes [email or web address] Information not available 11/02/2020 How Much Tobacco Do You Smoke? No [email or web address] Information not available 11/02/2020 Do You Use Sunscreen Routinely? Yes [email or web address] Information not available 11/02/2020 Has Tobacco Cessation Counseling Been Provided? No [email or web address] Information not available 07/05/2022 Have You Used IV Drugs? No [email or web address] Information not available 11/02/2020 Do You Have Difficulty Walking Or Climbing Stairs? No [email or web address] Information not available 07/05/2022 Sex: Unknown Functional Status Question Answer Note LastModified by Organizat ion Details LastModified Time Do you use any illicit or recreational drugs? No [email or web address] Information not available 06/22/2020 Do you or have you ever used any other forms of tobacco or nicotine? No [email or web address] Information not available 07/05/2022 What is your level of alcohol consumption? None [email or web address] Information not available 06/22/2020 Are you able to walk? YESWOREST [email or web address] Information not available 11/02/2020 Are you able to care for yourself? 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 Na [email or web address] Information not available 11/02/2020 Do you have difficulty dressing or bathing? No [email or web address] Information not available 07/05/2022 What is your exercise level? Occasional [email or web address] Information not available 06/22/2020 Mental Status Question Answer Note LastModified by Organization D etails LastModified Time Do you feel stressed (tense, restless, nervous, or anxious, or unable to sleep at night)? [id number] Information not available 11/02/2020 Family History Relationship Description Onset Age of this Age Resolved Age Notes LastModified by Organization Details LastModified Time Father No current problems or disability [email or web address] Not available 06/22 11:56:45 Mother No current problems or disability [email or web address] Not available 06/22 11:56:45 Medical History Condition Response Allergies (Food, seasonal, environmental ) Y Other N Drug/Latex Allergies/Reactions N Breast Cancer N Blood Transfusion N Dermatologic Disorders N [...] SNOMED-CT Code Diagnosis ICD10 Code Diagnosis Note [id number] DANDRE Tena [address] [address] 06/22/2020 14:02:32 06/22/2020 15:04:44 Surveillance of contraception 238096598 Z30.40 Pt would like to restart ocp. [...] and signed. Pt verbalized understand ing. 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 All staff wore face coverings during this encounter, as well as provided additional cleaning and sanitizing of all surfaces, including countertop s, pens, chairs, door handles, light switches, etc, prior to and following the patient s visit. 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 All staff wore face coverings during this encounter, as well as provided additional cleaning and sanitizing of all surfaces, including countertop s, pens, chairs, door handles, light switches, etc, prior to and following the patient s visit. Contracept ion care management 101986089 Z30.9 Elevated blood pressure today. Pt states [...] Elevated blood-pressure reading without diagnosis of hypertension 762199731 R03.0 Pt will call pcp for further evaluation . Discussed heart healthy diet and exercise. [id number] Rocío Edmonds [facility] [address] [place] [address] 10/18/2020 13:57:16 10/18/2020 14:16:26 Surveillance of oral contraception 805239353 Z30.41 Pt happy with new pill and would like to continue. [id number] Shraddha George [facility] [address] [place] [address] 11/02/2020 12:00:56 11/02/2020 13:27:10 Vaginitis 47234433 N76.0 [id number] [facility] [address] [place] [address] 12/16/2020 09:25:26 12/16/2020 11:02:32 Increased frequency of urination 404829989 R35.0 [id number] Ingrid Khanna MD [place] [address] [place] [address] 07/26/2021 11:44:20 07/26/2021 12:24:34 Urinary tract infectious disease 72675448 N39.0 Dysuria 42689807 R30.9 Initial pr escription of oral contraception 343740457 Z30.011 80531 Ingrid Khanna MD [place] [address] [address] 08/30/2021 09:55:58 08/30/2021 10:30:52 Surveillance of oral contraception 059710662 Z30.41 [id number] Mikael Trujillo MD [place] [address],[place] [address] 06/08/2022 14:03:05 06/08/2022 15:00:16 Dysuria 24495792 R30.0 Urinary tr act infectious disease 78941446 N39.0 [id number] Rocío Edmonds [facility] [address],[place] [address] 06/20/2022 10:45:43 06/20/2022 11:46:08 test positive 328347184 Z32.01 Risk factors addressed: Tobacco Cessation, Safe [...] annual well woman examinatio n and address preventati [facility] . [id number] Mikael Trujillo MD [place] [address],[place] [address] 06/20/2022 10:45:14 06/20/2022 11:28:10 screening 759866126 Z36.87 [id number] Mikael Trujillo MD [place] [address],[place] [address] 06/23/2022 10:57:34 06/23/2022 13:08:25 Dysuria 62610193 R30.0 Pt here for dysuria and feeling [...] meantime. Pt verbalized understand ing. LEFTY tracy [id number] Mikael Trujillo MD [place] [address],[place] [address] 07/05/2022 09:57:49 07/05/2022 13:33:51 Missed miscarriage 99563326 O02.1 Z3A.01 [id number] [facility] [address],[place] [address] 07/05/2022 10:29:08 07/05/2022 11:35:56 Missed miscarriage 43728585 O02.1 Acute urin yasmin tract infection 907299875 N39.0 increase water, urine for culture [id number] Mikael Trujillo MD [place] [address],[place] [address] 07/21/2022 15:42:41 07/24/2022 16:14:04 Miscarriage without complication 79169148 O03.9 Z3A.00 [id number] MD Kalin Pritchard [address],[place] [address] 07/28/2022 15:31:42 07/28/2022 16:29:33 Retained products of conception 923443252 O02.1 Z3A.00 [id number] Mikael Trujillo MD [place] [address] [address] 08/07/2022 10:02:26 08/07/2022 16:40:25 Retained products of conception 358513871 O02.1 Z3A.00 22-year-ol d female with persistent [...] high. It was 55 two weeks ago. [id number] Mikael Trujillo MD [place] [address],[place] [address] 02/11/2024 13:39:54 02/11/2024 14:20:51 [id number] Mikael Trujillo MD [place] [address],[place] [address] 02/11/2024 13:41:01 02/12/2024 14:00:34 Amenorrhea 60759270 N91.2 this patient is a 23-year-ol d [...] begin routine care at her next visit. [id number] Mikael Trujillo MD [place] [address],[place] [address] 03/10/2024 14:45:06 03/10/2024 15:17:27 screening 825481001 Z36.82 Z3A.11 [id number] Mikael Trujillo MD [place] [address],[place] [address] 03/10/2024 14:45:28 03/10/2024 16:04:58 Routine care 666003885 Z34.90 Gestation period, 11 weeks 85269561 Z3A.11 [id number] MD Kalin Pritchard [address],[place] [address] 04/10/2024 16:16:46 04/10/2024 17:30:34 Routine care 888475111 Z34.90 [id number] MD Kalin Pritchard [address],[place] [address] 04/14/2024 13:50:00 04/14/2024 14:42:58 [id number] MD Kalin Pritchard [address],[place] [address] 04/28/2024 14:09:15 04/29/2024 10:04:44 Hypertensive disorder 35394258 I10 [id number] MD Kalin Pritchard [address],[place] [address] 05/05/2024 15:24:47 05/05/2024 16:56:18 screening for malformation 533891439 Z36.3 Z3A.19 [id number] Mikael Trujillo MD [place] [address],[place] [address] 05/05/2024 15:25:15 05/06/2024 06:17:49 Routine care 453926073 Z34.90 [id number] MD Kalin Pritchard [address],[place] [address] 05/19/2024 15:49:02 05/19/2024 17:10:47 Routine care 970882220 Z34.90 [id number] MD Kalin Pritchard [address],[place] [address] 06/03/2024 09:25:28 06/03/2024 10:21:42 Routine care 111070869 Z34.90 Pre-eclampsia 106314978 O14.92 [id number] MD Kalin Pritchard [address] [address] 07/02/2024 16:11:40 07/03/2024 09:52:16 Routine care 138941525 Z34.90 Health Concerns Section Related Observation LastModified by Organization Detai ls LastModified Time None Recorded Concern Status LastModified by Organization Details LastModified Time None Recorded Advance Directives Directive N: Payers Encounter Date Sequence Insurance Name Policy Number Policy Pickard Covered Member ID Pickard Member ID Guarantor Name 05/05/2024 1 [facility] [id number] Ashley Manar [id number] Ashley L Manar 05/05/2024 1 [facility] [id number] Ashley Manar [id number] Ashley L Manar 05/19/2024 1 [facility] [id number] Ashley Manar [id number] Ashley L Manar 06/03/2024 1 [facility] [id number] Ashley Manar [id number] Ashley L Manar 07/02/2024 1 [employer] [id number] Ashley Kuldip Manar [id number] Ashley L Manar OBGyn Episode Ob Episode Information Episode Created Date Number of Fetuses Patient Bloodtype Patient rh Status Prepregnancy Weight lbs Domestic Partner Domestic Partner Phone Father Name Certified Bench Jeweler Technician Status 07/05/19 23 1 CLOSED Fetus Data First Name Last Name Admitted to NICU Weight (g) Sex Living Outcome Pediatric Complications Fetus ID Race Codes Race Delivery Type , Spontane ous [id number] Leon Calculation Initial Leon Date Initial Exam [...] Domestic Partner Domestic Partner Phone Father Name Certified Bench Jeweler Technician Status 03/10/20 24 1 A Positive 236 Darlene Foster OPEN Fetus Data First Name Last Name Admitted to NICU Weight (g) Sex Living Outcome Pediatric Complications Fetus ID Race Codes Race Delivery Type [id number] Problems Problem Notes testing at 32wksLe gina II US Abdomen portal vein prominent measuring 6mm2/10/26 PT TRANSFER CARE TO [facility] HIGH RISK Problem Name Start Date End Date Resolution Snomed Code Not e Essential hypertension 2952246 0 38wk delivery 04/28 - 200mg bid Labetalol, bASA 2 tablets daily & MFM consult per SB . [facility] follow up scheduled 07/25 US onlyM pt monitor BP at home send weekly logAntental testing @ 32wks Body mass index 30+ - obesity 174580654 weekly antenata l testing at 37wks Pre-eclampsia 134020870 PCR .6 0 Asthma 543439545 Mixed anxiety and depressive disorder 587808448 wendy whitfield currently Leon Calculation Initial Leon [...] Weight in lbs Pre/Post Dialysis Refused Weight 238.831533279221 BP Diastolic BP Location Tested BP Systolic [...] Type Weight in lbs Pre/Post Dialysis Refused 236.040852962616 BP Diastolic BP Location Tested BP Systolic [...] Type Weight in lbs Pre/Post Dialysis Refused 237.746778014213 BP Diastolic BP Location Tested BP Systolic [...] Type Weight in lbs Pre/Post Dialysis Refused 236.876250529734 BP Diastolic BP Location Tested BP Systolic [...] pressure check and to do referral to [facility]. Flowsheet Date 04/29/2024 Guillaume Score Blood [...] Type Weight in lbs Pre/Post Dialysis Refused 236.692293055725 BP Diastolic BP Location Tested BP Systolic [...] Type Weight in lbs Pre/Post Dialysis Refused 238.098345520522 BP Diastolic BP Location Tested BP Systolic [...] Type Weight in lbs Pre/Post Dialysis Refused 242.895245505390 BP Diastolic BP Location Tested BP Systolic BP Type 93 L arm 144 sitting Fetus Heart Rate Present A 144 Fetus Movement A Yes Comments no complaints, no problems, routine care, no contractions, no vaginal bleeding, no loss of fluid, no crampingpree labs and gowth Flowsheet Date 07/02/2024 Guillaume Score Blood Edema Fundus Height Fundus Units Glucose Ketones Leukocytes Nitrite Labor Signs Protein Cervic Dilation Cervic Effacement Cervic Station Type Weight in lbs Pre/Post Dialysis Refused 249.691416890769 BP Diastolic BP Location Tested BP Systolic [...]
--- NOTE | 2024-11-11 19:34 | ECG_ITS ---
Test Date: 2024-11-11 19:36:39 Measurements Intervals [place] Rate: 87 P: 44 OR: 140 QRS: 65 QRSD: 96 T: 41 QT: 361 QTc: 436 Interpretive Statements SINUS RHYTHM MINIMAL Q WAVES- INFERIOR LEADS BASELINE ARTIFACT- I, II, III, AVR, AVL BORDERLINE ECG No previous ECG available for comparison Electronically Signed On 11-11-2024 20:15:30 CDT by Deng Do D.O.
[2024-11-11 19:51] LABS: Basophils Percent Auto 0.6 % (0.2-1.2); Eosinophils Absolute Auto 0.1 K/mm3 (0-0.3); Eosinophils Percent Auto 1.6 % (0-4.4); Hematocrit 37.6 % (37.0-47.0); Hemoglobin 12.1 g/dL (12.0-15.0); Immature Granulocyte Absolute 0.01 K/mm3 (0.00-0.031); Immature Granulocyte Percent A 0.1 % (0-0.5); Lymphocytes Absolute Auto 2.11 K/mm3 (0.9-3.2); Lymphocytes Percent Auto 29.8 % (18.3-44.2); Mean Corpuscular HGB Conc 32.2 g/dl (32-36); Mean Corpuscular Hemoglobin 28.7 pg (26-34); Mean Corpuscular Volume 89.1 fl (80-100); Mean Platelet Volume 10.3 fl (7.4-10.4); Monocytes Absolute Auto 0.5 K/mm3 (0.1-0.6); Monocytes Percent Auto 6.3 % (2.6-8.5); Neutrophils Absolute Auto 4.4 K/mm3 (1.3-6.7); Neutrophils Percent Auto 61.6 % (45.5-73.1); Platelet Count Result 324 k/mm3 (150-375); Red Blood Count 4.22 M/mm3 (4.2-5.4); Red Cell Distribution Width 13.6 % (11.5-14.5); White Blood Count 7.1 K/mm3 (4.5-10.0)
[2024-11-11] MEDS: diazePAM INJ (*CRX) 10 MG/2 ML SYRINGE 5 MG IV PUSH (19:51)
--- NOTE | 2024-11-11 19:51 | ED.GENADULT ---
HPI - General Adult General Chief complaint: Dizziness Stated complaint: light headedness,Shortness of breath Time Seen by Provider: 11/11/24 19:32 History of Present Illness HPI narrative: This is a 24-year-old female history of anxiety presenting for an episode of dizziness and extreme panic. Patient says she was watching TV when all the sudden she started to feel dizzy lightheaded. She felt a a sense of ?overwhelming anxiety. ?. This lasted for several seconds before resolving. She then came to the ED for evaluation. Patient has been having these episodes for many years although only got worse over last 3 months since she had a pre term infant. The is doing well patient still having uncontrolled anxiety. No fevers chest pain difficulty breathing abdominal pain urinary symptoms. Related Data Home Medications ?Medication ?Instructions ?Recorded ?Confirmed ?Last Taken ?Type enoxaparin 40 mg/0.4 mL 40 mg subcut BID 09/30/24 09/30/24 Unknown History subcutaneous syringe Allergies Allergy/AdvReac Type Severity Reaction Status Date / Time vancomycin Allergy Unknown Rash Verified 09/30/24 08:37 [facility] Past Medical History Medical History Wears glasses Claustrophobia Moderate right ankle sprain Surgical History Surgical History H/O section August 12, 2024 H/O laparoscopy Family History Family History Father Hypertension Mother Leukemia Hypertension Depression Sibling Asthma Depression Grandparent Skin cancer Diabetes mellitus Social History Social History Smoking status: Never smoker Alcohol intake: never Substance use: never Substance use type: does not use Lack of Transportation: No Lack of Food: Never True Current Housing: I Have Housing Concerned About Future Housing: No Difficulty Paying Gas/Electric Bills: No Difficulty Paying for Meds: No Currently Unemployed: No Education: High School Diploma/GED Difficulty w/ Childcare or Family Care: No Living arrangements: with family Occupation/Education: student Gender identity (if verbalized by the patient): Female Exam Narrative: APPEARANCE: No apparent distress. Head: atraumatic. EYES: EOMI, NOSE: Atraumatic NECK: Trachea midline RESPIRATORY: No increased rate of breathing CTAB CARDIOVASCULAR: RRR, no peripheral edema ABDOMINAL: Non-distended MUSCULOSKELETAl: No obvious deformities NEURO: Alert. Moving 4/4 extremities SKIN:: Warm, dry. Normal color PSYCHIATRIC: Normal affect Course Vital Signs Vital signs: Vital Signs Temperature 97.8 F 11/11/24 19:54 Pulse Rate 86 11/11/24 19:54 Respiratory Rate 18 11/11/24 19:54 Blood Pressure 148/92 H 11/11/24 19:54 Pulse Oximetry 100 11/11/24 19:54 Temperature 97.8 F 11/11/24 19:54 Pulse Rate 86 11/11/24 19:54 Respiratory Rate 18 11/11/24 19:54 Blood Pressure 148/92 H 11/11/24 19:54 Pulse Oximetry 100 11/11/24 19:54 Medical Decision Making MDM Narrative Medical decision making narrative: -Course: 24-year-old female presenting after an episode of dizziness lightheaded associated with extreme anxiety. Chest x-ray basic labs and EKG were unremarkable. Patient was given Valium with significant improvement. Patient has a well documented history of anxiety and panic attacks. Patient be discharged follow-up with her primary care physician. -DDX includes but is not limited to: Anxiety pneumonia, pneumothorax, PE, ACS Independent EKG interpretation: Rhythm [sinus], Rate [87], [place] -[normal], [place] -[normal], QRS [narrow], QTC [normal], T waves -[negative for concerning inversions], ST Segments - [Negative for concerning elevations] Final interpretations: [Normal Sinus Rhythm] Vital Signs Vital Signs: Vital Signs Temperature 97.8 F 11/11/24 19:54 Pulse Rate 86 11/11/24 19:54 Respiratory Rate 18 11/11/24 19:54 Blood Pressure 148/92 H 11/11/24 19:54 Pulse Oximetry 100 11/11/24 19:54 Temperature 97.8 F 11/11/24 19:54 Pulse Rate 86 11/11/24 19:54 Respiratory Rate 18 11/11/24 19:54 Blood Pressure 148/92 H 11/11/24 19:54 Pulse Oximetry 100 11/11/24 19:54 Lab Data 11/11/24 19:44 11/11/24 19:44 Labs: Lab Results 11/11/24 Range/Units 19:44 WBC Pending RBC Pending Hgb Pending Hct Pending MCV Pending MCH Pending MCHC Pending RDW Pending Plt Count Pending MPV Pending Immature Gran % (Auto) Pending Neut % (Auto) Pending Lymph % (Auto) Pending [place] % (Auto) Pending Eos % (Auto) Pending Baso % (Auto) Pending Lymph # (Auto) Pending [place] # (Auto) Pending Eos # (Auto) Pending Baso # (Auto) Pending Abs Immat Gran (auto) Pending Absolute Neuts (auto) Pending Absolute Nucleated RBC Pending Nucleated RBC % Pending Sodium 142 (137-145) mmol/L Potassium 4.2 (3.4-5.0) mmol/L Chloride 110 H (98-107) mmol/L Carbon Dioxide 22 (22-30) mmol/L Anion Gap 10 (4-12) mmol/L BUN 10 (7-17) mg/dL Creatinine 0.79 (0.7-1.0) mg/dL Estim Creat Clear Calc 118 ml/min Estimated GFR > 60 (59 - ) Glucose 88 (65-110) mg/dL Calcium 9.6 (8.4-10.2) mg/dL Total Bilirubin 0.2 (0.2-1.3) mg/dL AST 34 (14-36) U/L ALT 42 H (6-35) U/L Alkaline Phosphatase 86 (38-126) U/L Total Protein 7.9 (6.3-8.2) g/dL Albumin 4.5 (3.5-5.1) g/dL Discharge Plan Discharge Clinical Impression: Anxiety Patient Disposition: Home Condition: Stable Instructions: Antibiotic Form, Anxiety (ED) Additional Instructions: You seen emergency department after an episode of dizziness/anxiety. This is likely related to anxiety. Please follow-up primary care physician for further management. If you develop any new or worsening symptoms please return to the ED for re-evaluation. Patient Language: Yi Prescriptions: No Action enoxaparin 40 mg/0.4 mL syringe 40 mg subcut BID Patient Comments: Ordered by Dr. Vail albuterol sulfate 90 mcg/actuation HFA aerosol inhaler 2 inh inhalation Q4H PRN (Reason: shortness of breath or wheezing) Qty: 8.5 5RF labetalol 200 mg tablet 200 mg PO ONCE Qty: 90 1RF nifedipine 60 mg tablet extended release 60 mg PO DAILY Qty: 90 1RF Follow-up/Referrals: Bushra Tello DO [Primary Care Provider] - 1 Week (anxiety )
[2024-11-11 19:54] VITALS: BP 148/92; PULSE 86; RESP 18; TEMP 36.6; O2SAT 100
[2024-11-11 20:15] VITALS: PULSE 83; RESP 15; O2SAT 98
[2024-11-11 20:15] LABS: Alanine Aminotransferase 42 U/L (6-35); Albumin Level 4.5 g/dL (3.5-5.1); Alkaline Phosphatase 86 U/L (38-126); Anion Gap 10 mmol/L (4-12); Aspartate Amino Transferase 34 U/L (14-36); Bilirubin,Total 0.2 mg/dL (0.2-1.3); Blood Urea Nitrogen 10 mg/dL (7-17); Calcium 9.6 mg/dL (8.4-10.2); Carbon Dioxide 22 mmol/L (22-30); Chloride 110 mmol/L (98-107); Estimated CRCL calculation 118 ml/min; Estimated Glomerular Filt Rate > 60; Glucose 88 mg/dL (65-110); Potassium 4.2 mmol/L (3.4-5.0); Sodium 142 mmol/L (137-145); Total Protein 7.9 g/dL (6.3-8.2)
[2024-11-11 20:30] VITALS: PULSE 82; RESP 18; O2SAT 99
--- OUTSIDE RECORDS SUMMARY | 2024-11-11 20:34 | XMS_ITS | Encounter Summary ---
Author Organization 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 Not hard at all 08/21/2024 [facility] Occup[facility] ional [facility] - Occupational Stress [...] things needed for daily living? No 08/21/2024 [place] Depression Scale Answer Date Recorded [place] Depression Scale Total 12 08/21/2024 The thought [...] were you homeless or living in a care home (including now)? No 08/21/2024 Education Answer Date Recorded What is the highest level of school you have completed or the highest degree you have received? 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 CB# [phone] documented in this encounter Plan of Treatment Not on file documented as of this encounter Visit Diagnoses Not on filedocumented in this encounter Care Teams Medical Claims Processor Relationship Specialty Start Date End Date Bushra Tello DO [address] [place] [address] PCP - General Family Medicine 07/23/24 documented as of this encounter
--- OUTSIDE RECORDS SUMMARY | 2024-11-11 20:34 | XMS_ITS | Clinical Summary ---
Author Organization [facility] Address [address] [place] [address] Care Team Providers Care Chainstitch Zipper Setter Name Role Phone Bushra Tello DO Primary Care Provider [phone] Source Comments [facility],non-owned Affiliates and Associated Physician Practices is amultiple site organization consisting of ambulatory clinics and hospital sitesin [place], [place], [place] and [place]. This disclosure is being madepursuant to the Care Everywhere program and may not contain all information available regarding this patient. Last updated 18.[facility] Allergies Active Allergy Reactions Criticality Noted Date [...] naloxone HCl (Narcan) 4 MG/0.1ML nasal spray [place] 1 (one) spray into the nose as [...] CDT [facility] [address], [address] [place] [address] Alan Vail MD Discharge Disposition: Home or Self Care 10/09/2024 Travel 09/23/2024 10:09 AM CDT - 09/23/2024 11:59 PM CDT [facility] at [address], [address] [place] [phone] Alan Vail MD Discharge Disposition: Home or Self Care 09/23/2024 Travel 09/16/2024 9:42 AM CDT - 09/16/2024 11:59 PM CDT Hospital Encounter [facility] at [address], [address] [phone] Alan Vail MD Bryant, Kenisha L, PROCESS DESIGN ENGINEER-[facility] Discharge Disposition: Home or Self Care 09/16/2024 9:40 AM CDT - 09/16/2024 9:41 AM CDT Hospital Encounter [facility] at [address], [address] [phone] Alan Vail MD Discharge Disposition: Home or Self Care 09/16/2024 Travel 09/12/2024 Orders Only [facility] at [address], [address] [phone] Ingrid Velasquez, LEFTY 09/10/2024 Orders Only [facility] at [address], [address] [phone] Ingrid Velasquez, RN 09/02/2024 9:47 AM CDT - 09/02/2024 11:59 PM CDT Hospital Encounter [facility] at [address], [address] [phone] Alan Vail MD Discharge Disposition: Home or Self Care 08/28/2024 Orders Only [facility] at [address], [address] [phone] Alan Vail MD Cystitis 08/26/2024 11:37 AM CDT - 08/26/2024 4:25 PM CDT Hospital Encounter [facility] 5 LDR [address] [phone] Emerson Bryant MD Discharge Disposition: Home or Self Care 08/26/2024 10:30 AM CDT - 08/26/2024 11:36 AM CDT Hospital Encounter [facility] at [address], [address] [place] [phone] Alan Vail MD Discharge Disposition: Home or Self Care 08/25/2024 Telephone [facility] at [address], [address] [place] [phone] Marj Matos Reminder Call 08/21/2024 6:08 PM CDT - 08/23/2024 12:25 PM CDT Hospital Encounter [facility] 5E ANTEPARTUM/MOTHER BABY [address] [place] [address] Mary Ann Gallardo MD Maternal Medicine Discharge Disposition: Home or Self Care 08/19/2024 9:44 AM CDT - 08/19/2024 11:59 PM CDT Hospital Encounter [facility] at [address], [address] [place] [phone] Alan Vail MD Discharge Disposition: Home or Self Care 08/18/2024 Telephone [facility] at [address], [address] [place] [phone] Ingrid Velasquez, RN Appointment 08/18/2024 Travel 08/18/2024 Telephone [facility] - MANAGER OF TAX [address] [place] [address] [address] [place] [address] [facility], Clinic Appointment 08/17/2024 Telephone [facility] [address] [place], [place] [phone] Indira Navarrete MD Question 08/12/2024 Surgery [facility] LD [address] [place] [id number] Ruiz Gutierrez MD SECTION (EMERGENCY) 08/11/2024 11:03 PM CDT Anesthesia Event [facility] 5 LDR [address] [place] [address] Davon Ching, Allison Branham, PROCESS DESIGN ENGINEER-TECHNICAL EDUCATION TEACHER 08/07/2024 5:00 PM [facility] FORMER - 08/16/2024 4:58 PM CDT Hospital Encounter [facility] 6W MOTHER/BABY [address] [place] [address] Hosea Portillo MD Obstetrics Discharge Disposition: Home [...] and heating? Not hard at all 10/09/2024 [facility] of Occupat ional Health - Occupational Stress [...] things needed for daily living? No 10/09/2024 [place] Depression Scale Answer Date Recorded [place] Depression Scale Total 3 10/09/2024 The thought [...] any time in the past 12 m [facility], were you homeless or living in a group home (including now)? No 10/09/2024 Education Answer Date Recorded What is the highest level of school you have completed or the highest degree you have received? 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 Not on file [...] CDT Edema of left upper extremity PROTHROMBIN [id number] PANEL STAT 08/26/2024 3:45 PM CDT Edema [...] Urine 40.17 mg/dL 09/24/19 12:06 PM CDT [facility] Microalbumin Urine <0.5 mg/dL 09/23/2024 12:06 PM CDT [facility] Microalbumin/Crea tinine Ratio 09/23/2024 12:06 PM CDT [facility] Comment:Not Calculated Urine URINE SPECIMEN OBTAINED BY CLEAN CATCH PROCEDURE / Unknown Collection / Unknown 09/23/2024 10:52 AM CDT 09/23/2024 11:42 AM CDT Alan Vail MD LAB - URINE CHEMISTRY ORDERABLES Final Result [facility] [address] [place] [address] * HEMOGLOBIN A1C (09/23/2024 10:52 AM CDT) Hemoglobin A1c 5.3 <5.7 % 09/23/2024 11:55 AM CDT [facility] Estimated Average Glucose 105 mg/dL 09/23/2024 11:55 AM CDT [facility] Blood BLOOD SPECIMEN / Unknown Venipuncture / Unknown 09/23/2024 10:52 AM CDT 09/23/2024 11:42 AM CDT [facility] - 09/23/2024 11:55 AM CDT [...] MD LAB - CHEMISTRY ORDERABLES Final Result [facility] [address] [place] [address] * (ABNORMAL) COMPREHENSIVE METABOLIC PANEL (09/23/2024 10:52 AM CDT) Only the most recent of5 resultswithin the time period is included. [facility] Glucose 91 70 - 99 mg/dL 09/23/2024 12:02 PM CDT [facility] Sodium 136 136 - 145 mmol/L 09/23/2024 12:02 PM CDT [facility] Potassium 3.9 3.5 - 5.1 mmol/L 09/23/2024 12:02 PM CDT [facility] Chloride 106 98 - 107 mmol/L 09/23/2024 12:02 PM CDT [facility] CO2 23 22 - 29 mmol/L 09/23/2024 12:02 PM [facility] Calcium 9.6 8.4 - 10.4 mg/dL 09/23/2024 12:02 PM [facility] Anion Gap 7 6 - 16 mmol/L 09/23/2024 12:02 PM [facility] BUN 8 5.3 - 18.7 mg/dL 09/23/2024 12:02 PM [facility] Creatinine 0.74 0.57 - 1.11 mg/dL 09/23/2024 12:02 PM [facility] Alkaline Phosphatase 98 40 - 150 U/L 09/23/2024 12:02 PM [facility] ALT 67(H) 6 - 57 U/L 09/23/2024 12:02 PM [facility] AST 35 10 - 48 U/L 09/23/2024 12:02 PM [facility] Protein Total 7.5 6.4 - 8.3 gm/dL 09/23/2024 12:02 PM [facility] Albumin 3.8 3.4 - 5.0 gm/dL 09/23/2024 12:02 PM [facility] Bilirubin Total 0.4 0.2 - 1.2 mg/dL 09/23/2024 12:02 PM [facility] eGFR by CKD-EPI >90 >=90 mL/min/1.7 3 m2 09/23/2024 12:02 PM [facility] Blood BLOOD SPECIMEN / Unknown Venipuncture / Unknown 09/23/2024 10:52 AM CDT 09/23/2024 11:42 AM T us Alan Vail MD LAB - CHEMISTRY ORDERABLES Final Result [facility] [address] [place] [address] * (ABNORMAL) LIPID PROFILE (09/23/2024 10:52 AM T) [facility] Cholesterol 249(H) <200 mg/dL 09/23/2024 12:02 PM [facility] Triglycerides 243(H) <150 mg/dL 09/23/2024 12:02 PM CDT [facility] HDL Cholesterol 38(L) >40 mg/dL 5 12:02 PM CDT [facility] LDL Calculated 162(H) <130 mg/dL 09/23/2024 12:02 PM CDT [facility] VLDL Calculated 49(H) <=30 mg/dL 12:02 PM CDT [facility] Chol HDL Ratio 6.6(H) <4.5 09/23/2024 12:02 PM CDT [facility] LDL/HDL Ratio 4.3 <5.0 09/23/2024 12:02 PM CDT [facility] Blood BLOOD SPECIMEN / Unknown Venipuncture / Unknown 09/23/2024 10:52 AM CDT 09/23/2024 11:42 AM CDT Alan Vail MD LAB - CHEMISTRY ORDERABLES Final Result Performing Organization Address City/[facility]/ZIP Co de Phone Number [facility] [address] [place] [address] * URINE CULTURE (09/16/2024 10:32 AM CDT) Only the most recent of2 resultswithin the time period is included. [facility] Culture Urine 50,000-100,000 CFU/mL urogenital mark 09/18/2024 12:21 AM CDT [facility] Urine URINE SPECIMEN OBTAINED BY CLEAN CATCH PROCEDURE / Unknown Collection / Unknown 09/16/2024 10:32 AM CDT 09/16/2024 12:49 PM CDT Alan Vail MD LAB - MICROBIOLOGY ORDERABLES Fi nal Result [facility] [address] [place] [address], [facility] [phone] * PROTHROMBIN [id number] PANEL (08/26/2024 3:45 PM CDT) [facility] Factor II DNA Analysis Comment 09/01/2024 3:09 PM CDT [facility] ([facility]) Comment: Result: c.*97G>A - Not Detected This [...] the F2 gene and a c.1601G>A (p. Npx260Wll) variant in the F5 gene (commonly referred to as Factor V Leiden) have an approximately 20- fold increased risk for venous thromboembolism. Risks are likely to be even higher in more complex genotype combinations involving the F2 c.*97G>A variant and Factor V Leiden (PMID: 75411598). Additional risk factors include but are not [...] health care providers to discuss results at [phone] ([id number]). Test Details: Variant analyzed: c.*97G>A, previously referred to as [id number] Methods/Limitations: DNA analysis of the F2 gene [...] developed and its performance characteristics determined by [employer]. It has not been cleared or approved by the Food and Drug Administration. References: Alcira S, Amanda THAO, Taj R, Gilberto WW, Ismael JH; ACMG Professional Practice and Guidelines Committee. Addendum: [employer] [employer] consensus statement on factor V Leiden mutation testing. Jessica Med. 2020Aug 06. doi: 10.1038/v10141-376-67855-q. PMID: 63380956. Michael CONWAY. Prothrombin Thrombophilia. 2005Dec 26 [Updated 2020Jul 08'. In: Jose Daniel MP, Mar HH, Anirudh RA, et al., editors. Philippe(R) [Internet'. [place] ([place]): [facility]; 6533-4707. Available from: https://www.ncbi.nlm.nih.gov/books/FKD3212/ Kelvin S, Amanda THAO, Wilbur X, Mak B, Laz EB, Lucía P, Geno CS; [employer] Laboratory Animal Humane Agent Supervisor Committee. Venous thromboembolism laboratory testing (factor V Leiden and factor II c.*97G>A), 2018 update: a technical standard of the [employer] [employer] and Genomics (ACMG). Jessica Med. 2018 May;20(12):3114-9832. doi: 10.1038/[id number]-k. Epub 2017Mar 08. PMID: 65108151. Reviewed By Comment 09/01/2024 3:09 PM CDT [facility] ([facility]) Comment: Technical Component performed at [facility] Professional Component performed by: [employer] Michela Lock, Ph.D., [facility] Director, Molecular Genetics [address] [place] [address] Blood BLOOD SPECIMEN / Unknown Venipuncture / Unknown 08/26/2024 3:45 PM CDT 08/26/2024 3:49 PM CDT Narrative [facility] ([facility]) - 09/01/2024 3:09 PM CDT Performed at: - [facility] [address], [place], [place] [id number] Industrial Relations Commissioner: Kadie Jones [facility], Phone: [phone] us Emerson Bryant MD LAB - COAGULATION ORDERABLES Fin al Result [facility] ([facility]) [address] [place] [address] * FACTOR V LEIDEN MUTATION PANEL (08/26/2024 3:45 PM CDT) [facility] Factor V Leiden Comment 4:11 PM CDT [facility] ([facility]) Comment: Result: c.1601G>A (p.Win907Hak) - Not Detected This result is not associated with an increased risk for venous thromboembolism. See Additional Clinical Information and Comments. Additional Clinical Information: Venous thromboembolism is a multifactorial disease influenced by genetic, environmental, and circumstantial risk factors. The c.1601G>A (p. Fsd680Vbw) variant in the F5 gene, commonly referred [...] c.*97G>A variant and Factor V Leiden (PMID: 36073400). Additional risk factors include but are not [...] health care providers to discuss results at [phone] ([phone]). Test Details: Variant Analyzed: c.1601G>A (p. Dml856Hba), referred to as Factor V Leiden Methods/Limitations: [...] developed and its performance characteristics determined by [employer]. It has not been cleared or approved by the Food and Drug Administration. References: Alcira S, Amanda THAO, Taj R, Gilberto WW, Ismael JH; ACMG Professional Practice and Guidelines Committee. Addendum: [employer] [employer] consensus statement on factor V Leiden mutation testing. Jessica Med. 2020Aug 06. doi: 10.1038/r52834-596-58510-f. PMID: 55641595. Michael CONWAY. Factor V Leiden Thrombophilia. 1998October 15 (Updated 2017Jun 07). In: Jose Daniel MP, Mar HH, Anirudh RA, et al., editors. Philippe(R) (Internet). [place]): [facility]; 0153-1328. Available from: https://www.ncbi.nlm.nih.gov/books/QQF3559/ Kelvin Tapia, Amanda THAO, Wilbur X, Mak B, Laz EB, Lucía P, Geno CS; [employer] Laboratory Animal Humane Agent Supervisor Committee. Venous thromboembolism laboratory testing (factor V Leiden and factor II c.*97G>A), 2018 update: a technical standard of the [employer] [employer] and Genomics (ACMG). Jessica Med. 2017;20(12):4260-1866. doi: 10.1038/i43514-064-3028-l. Epub 2017Mar 08. PMID: 55907304. Reviewed By Comment 09/01/2024 4:11 PM CDT [facility] ([facility]) Comment: Technical Component performed at [facility] Professional Component performed by: [employer] Matti Green, Ph.D., [facility] Director, Molecular Genetics [address] [place], [place] [id number] Blood BLOOD SPECIMEN / Unknown Venipuncture / Unknown 08/26/2024 3:45 PM CDT 08/26/2024 3:49 PM CDT [facility] ([facility]) - 09/01/2024 4:11 PM CDT Performed at: [facility] [address] [place], [place] [id number] Industrial Relations Commissioner: Kadie Jones [facility], Phone: [phone] us Emerson Bryant MD LAB - COAGULATION ORDERABLES Fin al Result [facility] ([facility]) [address] [place] [address] * ANTITHROMBIN III ACTIVITY (08/26/2024 3:45 PM CDT) Pathologist [facility] Antithrombin III Activity 103.0 80.0 - 120.0 % 08/26/2024 7:49 PM CDT [facility] Blood BLOOD SPECIMEN / Unknown Venipuncture / Unknown 08/26/2024 3:45 PM CDT 08/26/2024 3:49 PM CDT Narrative [facility] - 08/26/2024 7:49 PM CDT Thrombin inhibitors (i.e., hirudin, argatroban...) present in the sample to be tested may lead to an over-estimation of the AT level. us Emerson Bryant MD LAB - COAGULATION ORDERABLES Fin al Result [address] [address], [facility] [phone] * (ABNORMAL) DIFFERENTIAL MANUAL (08/26/2024 3:22 PM CDT) Only the most recent of2 resultswithin the time period is included. Pathologist [facility] Neutrophil % 65 41 - 74 % 08/26/2024 4:09 PM CDT [facility] Lymphocyte % 27 17 - 47 % 08/26/2024 4:09 PM CDT [facility] Monocyte % 4 3 - 11 % 08/26/2024 4:09 PM CDT [facility] Eosinophil % 2 0 - 7 % 08/26/2024 4:09 PM CDT [facility] Basophil % 2 0 - 2 % 08/26/2024 4:09 PM CDT [facility] Neutrophil Absolute 4.62 1.60 - 7.50 x10E9/L 08/26/2024 4:09 PM CDT [facility] Lymphocyte Absolute 1.92 1.00 - 4.40 x10E9/L 08/26/2024 4:09 PM CDT [facility] Monocyte Absolute 0.28 0.15 - 1.00 x10E9/L 08/26/2024 4:09 PM CDT [facility] Eosinophil Absolute 0.14 0.00 - 0.60 x10E9/L 08/26/2024 4:09 PM CDT [facility] Basophil Absolute 0.14(H) 0.00 - 0.13 x10E9/L 08/26/2024 4:09 PM CDT [facility] RBC Morphology NORMAL 08/26/2024 4:09 PM T [facility] Blood BLOOD SPECIMEN / Unknown Venipuncture / Unknown 08/26/2024 3:22 PM CDT 08/26/2024 3:25 PM CDT us Emerson Bryant MD LAB - HEMATOLOGY ORDERABLES Demi l Result Performing Organization Address City/State/[facility] Co de Phone Number [facility] [address] [place], [place] [id number] * (ABNORMAL) CBC W AUTO DIFFERENTIAL (08/26/2024 3:22 PM CDT) Only the most recent of7 resultswithin the time period is included. [facility] Signature WBC 7.1 4.0 - 10.7 x10E9/L 08/26/2024 4:09 PM CDT [facility] RBC Count 3.75(L) 3.90 - 5.20 x10E12/L 08/26/2024 4:09 PM CDT [facility] Hemoglobin 11.5(L) 11.9 - 15.8 g/dL 08/26/2024 4:09 PM CDT [facility] Hematocrit 34.5(L) 34.8 - 46.1 % 08/26/2024 4:09 PM CDT [facility] MCV 92.0 80.0 - 98.0 fL 08/26/2024 4:09 PM CDT [facility] MCH 30.7 26.7 - 33.6 pg 08/26/2024 4:09 PM CDT [facility] MCHC 33.3 31.7 - 36.3 g/dL 08/26/2024 4:09 PM CDT [facility] RDW-CV 12.7 11.3 - 14.8 % 08/26/2024 4:09 PM CDT [facility] Platelet Count 329 150 - 420 x10E9/L 08/26/2024 4:09 PM CDT [facility] MPV 10.1 7.8 - 11.4 fL 08/26/2024 4:09 PM CDT [facility] Blood BLOOD SPECIMEN / Unknown Venipuncture / Unknown 08/26/2024 3:22 PM CDT 08/26/2024 3:25 PM CDT Emerson Bryant MD LAB - HEMATOLOGY ORDERABLES Demi valenzuela Result Performing Organization Address City/State/[facility] Co de Phone Number [facility] [address] [place] [address] * VAS Left Venous Duplex Ue (08/26/2024 1:44 PM CDT) Anatomical Region Laterality Modality Upper Extremity Ultrasound 08/26/2024 1:11 PM CDT Narrative Procedure Note [address] Street MD - 08/26/[address] [facility] [address] [place] [address] Upper Extremity Venous Ultrasound Report Pat.Name: ASHLEY HALL Pat.ID: [id number] St.Date: 08/26/2024 Refer.MD: Emerson Bryant Exam Time: 1:11:00 PM Study Type:UE Venous Age: 2 2000,24Y Sex: FEMALE Sonogrphr: Brinda Oh RVT Pat. Stat.:Inpatient Room: 559 stat ICD - 9: R60.0 Edema of left upper etremity CPT - 4: 72420 Reason for Study: Swelling -Arm/hand, left Procedures: Upper Extremity Venous - Left Race: [facility] Visit ID: [id number] ++++++++++++++++++++++++++++++++++++ SUMMARY: ++++++++++++++++++++++++++++++++++++ Acute superficial vein thrombosis [...] Yellow Yellow, Straw 08/26/2024 12:37 PM CDT [facility] Clarity UA Turbid(A) Clear 08/26/2024 12:37 PM CDT [facility] Glucose UA Normal Normal 08/26/2024 12:37 PM CDT [facility] Bilirubin UA Negative Negative 08/26/2024 12:37 PM CDT [facility] Ketone UA Negative Negative 08/26/2024 12:37 PM CDT [facility] Specific [place]acon UA 1.024 1.005 - 1.030 08/26/2024 12:37 PM CDT [facility] Blood UA 2+(A) Negative 08/26/2024 12:37 PM CDT [facility] pH UA 6.0 5.0 - 9.0 pH 08/26/2024 12:37 PM CDT [facility] Protein UA Trace(A) Negative 08/26/2024 12:37 PM CDT [facility] Urobilinogen UA Normal Normal mg/dL 08/26/2024 12:37 PM CDT [facility] Nitrite UA Negative Negative 08/26/2024 12:37 PM CDT [facility] Leukocyte Esterase UA 500 SUN/uL(A) Negative 08/26/2024 12:37 PM CDT [facility] RBC UA 11-20(A) 0 - 5 # /hpf 08/26/2024 12:37 PM CDT [facility] WBC UA 51-100(A) 0 - 5 # /hpf 08/26/2024 12:37 PM CDT [facility] Bacteria UA Trace(A) None Seen 08/26/2024 12:37 PM CDT [facility] Squamous Epithelial Cells 6-10(A) 0 - 5 /hpf 08/26/2024 12:37 PM CDT [facility] Transitional Epithelial Cell UA 3-5(A) None Seen /HPF 08/26/2024 12:37 PM CDT [facility] Mucus UA 3+ /LPF 08/26/2024 12:37 PM CDT [facility] Urine URINE SPECIMEN OBTAINED BY CLEAN CATCH PROCEDURE / Unknown Collection / Unknown 08/26/2024 11:25 AM CDT 08/26/2024 12:25 PM CDT Narrative [facility] - 08/26/2024 12:37 PM CDT us Alan Vail MD LAB - URINALYSIS ORDERABLES Demi l Result [facility] [address] [place] [address] * TYPE + SCREEN PANEL (All [facility]) (08/21/2024 8:08 PM CDT) Only the most recent of2 resultswithin the time period is included. ABO Rh A POS 08/21/2024 9:19 PM CDT [facility] Comment:History checked. Antibody Screen NEG 9:19 PM CDT [facility] Blood Bank BLOOD SPECIMEN / Unknown Venipuncture / Unknown 08/21/2024 8:08 PM CDT 08/21/2024 8:10 PM CDT Mary Ann Gallardo MD LAB - BLOOD BANK ORDERABLES Fi nal Result Performing Organization Address [facility] Co de Phone Number [facility] [address] [place] [address] * SYPHILIS ANTIBODY CASCADING REFLEX (08/13/2024 8:03 AM CDT) [facility] Treponema pallidum Antibody Non Reactive Non Reactive 08/13/2024 9:47 AM CDT [facility] Comment: No Laboratory evidence of syphilis infection. Note: Circulating antibodies may be low or undetectable in early infection. If recent exposure is suspected, re-draw sample in 2-4 weeks and repeat testing. Blood BLOOD SPECIMEN / Unknown Lab Venipuncture / Unknown 08/13/2024 8:03 AM CDT 08/13/2024 9:02 AM CDT Hosea Portillo MD LAB - SEROLOGY ORDERABLES Final Result Performing Organization Address City/[facility]/ZIP Co de Phone Number [facility] [address] [place] [address] * (ABNORMAL) CBC W/O DIFFERENTIAL (08/13/2024 5:59 AM CDT) [facility] WBC 12.0(H) 4.0 - 10.7 x10E9/L 08/13/2024 6:24 AM CDT [facility] RBC Count 3.21(L) 3.90 - 5.20 x10E12/L 08/13/2024 6:24 AM CDT [facility] Hemoglobin 9.9(L) 11.9 - 15.8 g/dL 08/13/2024 6:24 AM CDT [facility] Hematocrit 30.1(L) 34.8 - 46.1 % 08/13/2024 6:24 AM CDT [facility] MCV 93.8 80.0 - 98.0 fL 08/13/2024 6:24 AM CDT [facility] MCH 30.8 26.7 - 33.6 pg 08/13/2024 6:24 AM CDT [facility] MCHC 32.9 31.7 - 36.3 g/dL 08/13/2024 6:24 AM CDT [facility] RDW-CV 13.6 11.3 - 14.8 % 08/13/2024 6:24 AM CDT [facility] Platelet Count 210 150 - 420 x10E9/L 08/13/2024 6:24 AM CDT [facility] MPV 11.2 7.8 - 11.4 fL 08/13/2024 6:24 AM CDT [facility] Blood BLOOD SPECIMEN / Unknown Lab Venipuncture / Unknown 08/13/2024 5:59 AM CDT 08/13/2024 6:06 AM CDT us Hosea Portillo MD LAB - HEMATOLOGY ORDERABLES Fin al Result Performing Organization Address City/State/[facility] Co de Phone Number [facility] [address] [place], [place] [id number] * PATHOLOGY TISSUE EXAM (STL) (08/12/2024 1:16 PM CDT) Case Report Surgical Pathology Report Case: [id number] Authorizing Provider: Ruiz Gutierrez MD Collected: 08/12/2024 01:16 PM Ordering Location: [facility] LDR Received: 08/12/2024 02:06 PM Pathologist: Blaire Ramirez MD Specimen: Placenta 3rd Trimester 08/14/2024 1:10 PM CDT [facility] Final Diagnosis Placenta, delivery - Markedly hypermature placenta - membranes with no histopathologic abnormality - Three-vessel umbilical cord with no histopathologic abnormality 08/14/2024 1:10 PM [facility] at 1310 CDT Clinical History The patient is a 24-year-old woman at 34 weeks, 0 days gestation. Procedure: delivery. 08/14/2024 1:10 PM CDT [facility] Gross Description The specimen is identified [...] cm. Sectioning shows red-brown, spongy cut surfaces. Cone Classifier Tender sections submitted as follows: A1-umbilical cord and membrane roll, P7-S6-tmiiavzc, A4-maternal surface yellow-white thickened areas/lesions. LJ 08/14/2024 1:10 PM CDT [facility] Microscopic Description Microscopic examination substantiates the above diagnosis. 08/14/2024 1:[facility] [address] [facility] Location at [facility] 08/14/2024 1:10 PM T [facility] Disclaimer All histochemical and/or immunohistochemical results are interpreted with controls that demonstrate appropriate staining reactions before reporting results. Note on use of immunocytochemistry reagents: This test was developed and its performance characteristic determined by [facility], Department of Laboratory Medicine. It has [...] interpreted with caution. 08/14/2024 1:10 PM CDT [facility] Embedded Images 08/14/2024 1:10 PM CDT [facility] Pathology/Cytolo gy ENTIRE PLACENTA / Unknown 08/12/2024 1:16 PM CDT 08/12/2024 2:06 PM CDT Comment:Pre-op diagnosis: Nonreassuring tracing Ruiz Gutierrez MD LAB - PATHOLOGY/CYTOLOGY KIMBERLI PULIDO Final Result [facility] [address] [place] [address] * BLOOD GASES CORD ROZINA (ISTAT) (08/12/2024 1:04 PM CDT) pH Cord Venous POCT 7.32 7.28 - 7.40 pH 08/12/2024 1:08 PM CDT [facility] pCO2 Cord Venous POCT 43.3 35 - 45 mm hg 08/12/2024 1:08 PM CDT [facility] pO2 Cord Venous POCT 22 22 - 33 mm hg 08/12/2024 1:08 PM CDT [facility] HCO3 Cord Arterial POCT 22.3 22 - 24 mmol/L 08/12/2024 1:08 PM CDT [facility] BE Cord Venous POCT Calc -4 -6.4 - 1.6 mmol/L 08/12/2024 1:08 PM CDT [facility] TCO2 Cord Venous POCT 24 22 - 30 mmol/L 08/12/2024 1:08 PM CDT [facility] O2 Saturation % Cord Venous Calc POCT 33 % 08/12/2024 1:08 PM CDT [facility] Site CORD ROZINA 08/12/2024 1:08 PM CDT [facility] Sample iSTAT CORD ROZINA 08/12/2024 1:08 PM CDT [facility] Blood CORD BLOOD SPECIMEN / Unknown 08/12/2024 1:04 PM CDT 08/12/2024 1:08 PM CDT Hosea Portillo MD LAB - POINT OF CARE ORDERABLES Final Result Performing Organization Address [facility]/ZIP Co de Phone Number [facility] [address] [place] [address] * (ABNORMAL) BLOOD GASES CORD ART (ISTAT) (08/12/2024 1:00 PM CDT) pH Cord Arterial POCT 7.27 7.20 - 7.34 pH 08/12/2024 1:08 PM CDT [facility] pCO2 Cord Arterial POCT 53.3 45 - 55 mm hg 08/12/2024 1:08 PM CDT [facility] pO2 Cord Arterial POCT 16 12 - 25 mm hg 08/12/2024 1:08 PM CDT [facility] HCO3 Cord Arterial POCT 24.3(H) 22 - 24 mmol/L 08/12/2024 1:08 PM CDT [facility] BE Cord Arterial POCT -4(L) -2.9 - 8.3 mmol/L 08/12/2024 1:08 PM CDT [facility] TCO2 Cord Arterial POCT 26 mmol/L 08/12/2024 1:08 PM CDT [facility] O2 Saturation Cord Art % Calc POCT 18 % 08/12/2024 1:08 PM CDT [facility] Site CORD ART 08/12/2024 1:08 PM CDT [facility] Sample iSTAT CORD ART 08/12/2024 1:08 PM CDT [facility] Blood CORD BLOOD SPECIMEN / Unknown 08/12/2024 1:00 PM CDT 08/12/2024 1:08 PM CDT Hosea Portillo MD LAB - POINT OF CARE ORDERABLES Final Result Performing Organization Address [facility] Co de Phone Number [facility] [address] [place] [address] * EPIDURAL BLOCK PERF (08/11/2024 11:22 PM CDT) Narrative Allison Sutton APRN-TECHNICAL EDUCATION TEACHER - 08/11/2024 11:22 PM CDT Allison Sutton [...] stable throughout. Staff: Anesthesia Provider: Allison Sutton APRN-TECHNICAL EDUCATION TEACHER - performed the procedure Additional Notes: Pt [...] Insurance ANTH MEDICAID - [place] MEDICAID - [facility] Advance Directives * Full Code (Latest Code Status on File) Date Activated Date Inactivated Comments 08/13/2024 7:42 AM 08/16/2024 6:04 PM * Full Code Date Activated Date Inactivated Comments 08/11/2024 9:30 AM 08/13/2024 7:42 AM * Full Code Date Activated Date Inactivated Comments 08/07/2024 6:33 PM 08/11/2024 9:29 AM Care Teams Chainstitch Zipper Setter Relationship Specialty Start Date End Date Bushra Tello DO [address] [place] [address] PCP - General Family Medicine 07/23/24
[2024-11-11 20:52] VITALS: BP 142/70; PULSE 80; RESP 16; O2SAT 98
== END 2024-11-11 20:54 | disposition home or self-care (01) ==
PROVIDERS: Emergency Provider Emergency Medicine; PCP Family Medicine
DX: F41.9 Anxiety disorder, unspecified (principal)
CPT/HCPCS: 36415; 71045; 80053; 85025; 93005; 96374; 99284; J3360

== ENCOUNTER 2024-12-10 23:19 | Emergency (ER) | payer BC, SELFPAY ==
--- NOTE | ~2024-12-10 | XR_ITS ---
XR chest 1V portable Ordering provider: Faizan Schuler MD History: 24 years Female with . chest pain . Comparison: November 11, 2024 FINDINGS: MEDIASTINUM: The cardiac silhouette is not enlarged. LUNGS: No infiltrates, effusions or pneumothorax. OTHER: No free air under the diaphragm. IMPRESSION: No acute cardiopulmonary pathology. Reviewed, dictated and finalized at location A.
--- OUTSIDE RECORDS SUMMARY | 2024-12-10 23:21 | XMS_ITS | Data Portability ---
[facility] Organization [facility] Address [address] [place] [address] Care Team Providers Care Airport Guide Name Role Phone ERNST ALEXANDER Primary Care Provider Assessment No assessment recorded. Plan of Treatment Reminders Order Date Submit Date Provider Last Modified By Organization Details Last Modified Time Details Appointments None recorded. Lab None recorded. Referral None recorded. Procedures None recorded. Surgeries None recorded. Imaging None recorded. Medication Orders Bactrim DS 800 mg-160 [facility] [place], [address], 1 18:07:50 mupirocin calcium 2 % topical cream 2019 021 [facility] [address] [place], [address], 1 18:16:48 Patient TargetsNo targets recorded. Patient InstructionsNo instructions recorded. Reason for Referral None Reported. Problems Name Problem SNOMED Code Status Onset Date Resolution Date Notes Provider Name and Address Organization Details Recorded Time Anterior knee pain [id number] Active CHELITA Green, [facility] 6 15:32:44 Problem Notes None recorded. Procedures Surgical History Date Name Laterality Status Provider Name and Address Organization Details Recorded Time 06/04/2016 endoscopy completed Sandy Godoy MA [facility] 04/23/2020 15:38:06 Imaging Results None recorded. Procedure [...] mass index (BMI) Body mass index (BMI) [Percentile] Per age and sex Body weight Oxygen saturation Oxygen saturation in Arterial blood by Pulse oximetry Heart rate Systolic And Diastolic Provider Name and Address Organization Details Last Updated DateTime 9 165.1 cm 32.6 kg/m2 97 % 51904.1 g 98 % 98 % 85 /min 126/84 mm[Hg] Karely Medellin [place] [facility] 9 10:45:51 Date Recorded Body height Body mass index (BMI) [Percentile] Per age and sex Body mass index (BMI) Body weight Body temperature Oxygen saturation Oxygen saturation in Arterial blood by Pulse oximetry Heart rate Systolic And Diastolic Provider Name and Address Organization Details Last Updated DateTime 0 166.37 cm 96 % 32.2 kg/m2 10435.5 g 98.2 [degF] 99 % 99 % 90 /min 144/100 mm[Hg] Karely Medellin [place] [facility] 0 15:00:09 Date Recorded Heart rate Provider Name an d Address Organization Details Last Updated DateTime 01/27/2021 93 /min ARLETH Vincent Attn: Accounting,[address] [place], [address], [place] [facility] [place] 01/27/2021 18:49:17 Date Recorded Body height Body temperature Oxygen saturation Oxygen saturation in Arterial blood by Pulse oximetry Body mass index (BMI) Body mass index (BMI) [Percentile] Per age and sex Body weight Systolic And Diastolic Provider Name and Address Organization Details Last Updated DateTime 1 166.37 cm 98.2 [degF] 98 % 98 % 35.1 kg/m2 97 % 88076.7 7 g 130/98 mm[Hg] Sandy Godoy MA [facility] 1 18:12:23 Date Recorded Body height Body mass index (BMI) Body mass index (BMI) [Percentile] Per age and sex Body weight Oxygen saturation Oxygen saturation in Arterial blood by Pulse oximetry Heart rate Systolic And Diastolic Provider Name and Address Organization Details Last Updated DateTime 9 166.37 cm 32.3 kg/m2 96 % 38972.7 g 97 % 97 % 95 /min 144/86 mm[Hg] Karely Medellin MA [facility] 9 14:11:49 Date Recorded Body height Body temperature Oxygen saturation Oxygen saturation in Arterial blood by Pulse oximetry Heart rate Body mass index (BMI) Body mass index (BMI) [Percentile] Per age and sex Body weight Systolic And Diastolic Provider Name and Address Organization Details Last Updated DateTime 0 166.37 cm 97.6 [degF] 99 % 99 % 103 /min 32.5 kg/m2 96 % 16438.6 9 g 158/100 mm[Hg] Sandy Godoy MA [facility] 0 15:41:44 Social History Question Answer Notes LastModified by Organizat ion Details LastModified Time Tobacco Smoking Status Never Smoker Lucia Hernandez MA null, [facility] 05/06/2014 10:25:55 What Is Your Level Of [...] anxious, or unable to sleep at night)? [id number] Information not available 01/27/2021 Family History Relationship Description Onset Age of this Age Resolved Age Notes LastModified by Organization Details LastModified Time Mother Anxiety [email or web address] Not availab le 01/20/2016 15:32:44 Mother Depressive [...] Cholesterol N Liver Disease N Headaches N Kidney or Bladder Problems N Thyroid Problems N GI Problems N Skin Problems [...] 17:55:14 Meningococcal [id number] 8 completed Not Available [facility] 06/21/2019 02:35:26 meningococcal B, OMV 0 completed [...] SNOMED-CT Code Diagnosis ICD10 Code Diagnosis Note 61581 HODA Vincent [facility] [address] [place] [address] 05/06/2014 10:22:40 05/07/2014 17:07:00 Well child [id number] MD Terrence Velasquez [facility] [address] [place] [address] 01/13/2015 14:18:27 01/13/2015 15:15:01 Well child 255246875 [id number] Bacilio Canales MD [facility] [address] [place] [address] 04/20/2015 11:21:39 04/20/2015 12:11:40 Anterior knee pain 112147888 M25.569 [id number] Bacilio Canales MD [facility] [address] [place] [address] 06/18/2015 16:33:21 06/22/2015 10:00:14 Anterior knee pain 887768503 M25.561 [id number] Bacilio Canales MD [facility] [address] [place] [address] 07/02/2015 16:55:09 07/02/2015 17:40:18 Anterior knee pain 316420030 M25.561 [id number] Alexander Jimenez PA-C [facility] [address] [place] [address] 01/20/2016 15:07:54 01/20/2016 16:15:13 Well child 799278349 Z00.293 [id number] Bacilio Canales MD [facility] [address] [place] [address] 12/20/2016 11:34:58 12/20/2016 14:52:43 Well child 477385699 Z00.199 [id number] Bacilio Canales MD [facility] [address] [place] [address] 09/10/2017 09:55:14 09/10/2017 10:46:54 Well child 408046731 Z00.129 Acute non- suppurative serous otitis media 799179398 H65.01 [id number] Bacilio Canales MD [facility] [address] [place] [address] 11/22/2017 14:57:42 11/22/2017 15:46:32 Well child 135404606 Z00.863 [id number] Alexander Jimenez PA-C [facility] [address] [place] [address] 05/02/2018 15:39:06 05/02/2018 16:10:45 Posterior rhinorrhea 54462137 R09.82 [id number] Alexander Jimenez PA-C [facility] [address] [place] [address] 11/27/2018 16:53:42 11/27/2018 17:49:47 [id number] Alexander Jimenez PA-C [facility] [address] [place] [address] 01/02/2019 10:37:52 01/02/2019 15:09:32 Well child 606717620 Z00.544 [id number] Alexander Jimenez PA-C [facility] [address] [place] [address] 02/13/2019 13:57:40 02/13/2019 15:13:58 Well child 229008407 Z00.093 [id number] Alexander Jimenez PA-C [facility] [address] [place] [address] 01/13/2020 14:47:58 01/13/2020 16:12:26 Well child visit 566473302 Z00.179 [id number] Bacilio Canales MD [facility] [address] [place] [address] 04/23/2020 15:30:20 04/23/2020 16:10:30 Axillary hidradenitis suppurativa 762449635 L73.2 [id number] Bacilio Canales MD [facility] [address] [place] [address] 01/27/2021 17:45:12 01/27/2021 18:58:51 Adult health examination 964534279 Z00.00 Health Concerns Section Related Observation LastModified by Organization Detai ls LastModified Time None Recorded Concern Status LastModified by Organization Details LastModified Time None Recorded Advance Directives Directive None Recorded Payers Insurance Date Sequence Insurance Name Policy Number Policy Pickard Covered Member ID Pickard Member ID Guarantor Name 04/07/2019 1 PENG (PPO) QUENTIN [facility]cc[id number]/13/2020 2 [facility] [id number] Jorden Mccabe [id number] Chistopher Mccabe 04/21/2019 2 *SELF [facility] M[facility]abe 02/17/2019 SLIDING FEE SCHEDULE - DISCOUNT Chistopher Mccabe 01/27/2021 1 [facility] Ashley Hall [id number] Chistopher Mccabe 04/07/2019 1 [place] Ashley Hall [id number] Chistopher Mccabe 01/20/2016 1 [employer] (PPO) [id number] Ashley Hall [id number] Chistopher Mccabe 12/20/2016 1 [place] [id number] [place]rina [place] [id number] Chistopher Mccabe 02/02/2021 1 [facility] Christopher R Mccabe [id number] Chistopher Mccabe 04/07/2019 1 [place] [id number] Ashley Hall [id number] Chistopher Mccabe 04/07/2019 1 [employer] [id number] Christopher Mccabe [id number] Chistopher Mccabe Notes Date Note Type Note Provider Name and Address Organization Details Recorded Time 01/02/2019 text/html needs college physical no complaints Alexander Jimenez PA-C Attn: [address] [place], [address], [facility] 01/02/2019 10:57:20 02/13/2019 text/html no complaints sports phys. Alexander Jimenez PA-C Attn: Accounting,[address] [place], [address], [facility] 02/13/2019 14:59:38 01/13/2020 text/html college phys...n o complaints Alexander Jimenez PA-C Attn: Accounting,[address] [place], [address], [facility] 01/13/2020 15:22:57 04/23/2020 text/html thinks she has infected armpit rt side.. Alexander Jimenez PA-C Attn: Accounting,[address] [place], [address], [facility] 04/23/2020 16:10:28 OBGyn Episode No OBEpisode recorded.
--- OUTSIDE RECORDS SUMMARY | 2024-12-10 23:21 | XMS_ITS | Encounter Summary ---
Author Organization [facility] Address [address] [place] [address] Care Team Providers Care Gauger Chief Delivery Name Role Phone Bushra Tello DO Primary Care Provider [phone] Reason for Visit * Reason Onset Date Comments Appointment 08/18/2024 Encounter Details Date Type Department Care Team (Late st Contact Info) Description 08/18/2024 Telephone [facility] - DATA PROCESSING OPERATOR [address] [place] [address] [facility] [address] , [address] [place], [place] [id number] Appointment Social History Tobacco Use Types Packs/Day [...] and heating? Not hard at all 08/21/2024 [facility] [place] of Occupat ional Health - Occupational Stress [...] things needed for daily living? No 08/21/2024 [place] Depression Scale Answer Date Recorded [place] Depression Scale Total 12 08/21/2024 The thought [...] were you homeless or living in a usp (including now)? No 08/21/2024 Education Answer Date Recorded What is the highest level of school you have completed or the highest degree you have received? 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 CB# [phone] documented in this encounter Plan of Treatment Not on file documented as of this encounter Visit Diagnoses Not on filedocumented in this encounter Care Teams Gauger Chief Delivery Relationship Specialty Start Date End Date Bushra Tello DO [address] [place] [address] PCP - General Family Medicine 07/23/24 documented as of this encounter
--- OUTSIDE RECORDS SUMMARY | 2024-12-10 23:21 | XMS_ITS | Clinical Summary ---
Author Organization [facility] Address [address] [place] [address] Care Team Providers Care Neurology Hospitalist Name Role Phone Bushra Tello DO Primary Care Provider Source Comments [facility],non-owned Affiliates and Associated Physician Practices is amultiple site organization consisting of ambulatory clinics and hospital sitesin [place], [place], [place] and [place]. This disclosure is being madepursuant to the Care Everywhere program and may not contain all information available regarding this patient. Last updated 18.[facility] Allergies Active Allergy Reactions Criticality Noted [...] naloxone HCl (Narcan) 4 MG/0.1ML nasal spray [place] 1 (one) spray into the nose as [...] 09/16/2024 Overview (08/08/2024): BMI pre- 34.45 Encounters Date Type Department Care Team Description 10/09/2024 8:44 AM CDT - 10/09/2024 11:59 PM CDT Hospital [facility] [address], [address] [place] [address] Alan Vail MD Discharge Disposition: Home or Self Care 10/09/2024 Travel 09/23/2024 10:09 AM CDT - 09/23/2024 11:59 PM CDT Hospital Encounter [facility] [address], [address] [place] [address] Alan Vail MD Discharge Disposition: Home or Self Care 09/23/2024 Travel 09/16/2024 9:42 AM CDT - 09/16/2024 11:59 PM CDT Hospital Encounter [facility] at [address], [address] [place] [phone] Alan Vail MD Bryant, Kenisha L, EXTENSION SERVICE SPECIALIST-COTTON PROGRAM TECHNICIAN Discharge Disposition: Home or Self Care 09/16/2024 9:40 AM CDT - 09/16/2024 9:41 AM CDT Hospital Encounter [facility] Center at [address], [address] [address] Alan Vail MD Discharge Disposition: Home or Self Care 09/16/2024 Travel 09/12/2024 Orders Only [facility] Center at [address], [address] [address] Ingrid Velasquez, RN 09/10/2024 Orders Only [facility] Center at [address], [address] [address] Ingrid Velasquez, RN from Last 3 Months Immunizations Immunization Administration [...] 2 Dose, IM 0 PNEUMOCOCCAL PPV VACCINE 07/22/2001,01/03,2000,09/18 POLIO,HISTORIC VACCINE 01/18/2006,2001,2000,09/18 TDAP (7yrs+) 07/23/2024 TDAP, [...] and heating? Not hard at all 10/09/2024 [facility] [place] [facility] Occupat ional [facility] - Occupational Stress [...] things needed for daily living? No 10/09/2024 [place] Depression Scale Answer Date Recorded [place] Depression Scale Total 3 10/09/2024 The thought [...] any time in the past 12 m [facility], were you homeless or living in a penitentiary (including now)? No 10/09/2024 Education Answer Date Recorded What is the highest level of school you have completed or the highest degree you have received? 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 Not [...] 2-dose series) 07/15/2020 01/13/2020 COVID-19 VACCINE (3 - 2023-2 5 season) 2024 07/19/2021, 06/09/2021 INFLUENZA VACCINE (#1) 2025 , 02/13/2020, 05/10/2017 CHLAMYDIA/GONORRHEA SCREENING 03/10/2025 03/10/2024 PAP SMEAR 03/10/2027 03/10/2024 DTAP/TDAP/TD VACCINES (9 - T d or Tdap) 07/23/2034 07/23/2024, 04/08/2021, 01/23/2011, Additional history exists ZOSTER VACCINE (1 of 2) 2050 HEPATITIS B VACCINE Completed 05/11/2001, 2000, 2000 HIB VACCINE Completed 01/26/2002, 01/03, 2000, Additional history exists HPV VACCINE Completed 09/07/2014, 10/2013, 10/17/2011 MENINGOCOCCAL GROUPS A/C/Y/W VACCINE Completed 11/22/2017, 10/17/2011 HIV SCREENING Completed 07/02/2024, 03/10/2024 DEPRESSION SCREENING Completed 10/09/2024 Procedures Procedure Name [...] 10:32 AM CDT Acute cystitis without hematuria from Last 3 Months Results * MICROALB/CREAT RATIO URINE RANDOM PANEL (09/23/2024 10:52 AM CDT) Creatinine Urine 40.17 mg/dL 09/24/19 12:06 PM CDT [facility] Microalbumin Urine <0.5 mg/dL 09/23/2024 12:06 PM CDT [facility] Microalbumin/Crea tinine Ratio 09/23/2024 12:06 PM CDT [facility] Comment:Not Calculated Urine URINE SPECIMEN OBTAINED BY CLEAN CATCH PROCEDURE / Unknown Collection / Unknown 09/23/2024 10:52 AM CDT 09/23/2024 11:42 AM CDT lAan Vail MD LAB - URINE CHEMISTRY ORDERABLES Final Result Performing Organization Address City/State/[facility] Co de Phone Number [facility] [address] [place] [address] * HEMOGLOBIN A1C (09/23/2024 10:52 AM CDT) Hemoglobin A1c 5.3 <5.7 % 09/23/2024 11:55 AM CDT [facility] Estimated Average Glucose 105 mg/dL 09/23/2024 11:55 AM CDT [facility] Blood BLOOD SPECIMEN / Unknown Venipuncture / Unknown 09/23/2024 10:52 AM CDT 09/23/2024 11:42 AM CDT Narrative [facility] - 09/23/2024 11:55 AM CDT HbA1c [...] (HbF) exceeds 5% in the specimen. The [employer] Alinity assay for the measurement of HbA1c is a National Glycohemoglobin Standardization Program (NGSP) certified method. us Alan Vail MD LAB - CHEMISTRY ORDERABLES Final Result [facility] [address] [place], [place] [id number] * (ABNORMAL) COMPREHENSIVE METABOLIC PANEL (09/23/2024 10:52 AM CDT) Glucose 91 70 - 99 mg/dL 09/23/2024 12:02 PM [facility] Sodium 136 136 - 145 mmol/L 09/23/2024 12:02 PM [facility] Potassium 3.9 3.5 - 5.1 mmol/L 09/23/2024 12:02 PM [facility] Chloride 106 98 - 107 mmol/L 09/23/2024 12:02 PM [facility] CO2 23 22 - 29 mmol/L 09/23/2024 12:02 PM [facility] Calcium 9.6 8.4 - 10.4 mg/dL 09/23/2024 12:02 PM [facility] Anion Gap 7 6 - 16 mmol/L 09/23/2024 12:02 PM [facility] BUN 8 5.3 - 18.7 mg/dL 09/23/2024 12:02 PM [facility] Creatinine 0.74 0.57 - 1.11 mg/dL 09/23/2024 12:02 PM [facility] Alkaline Phosphatase 98 40 - 150 U/L 09/23/2024 12:02 PM [facility] ALT 67(H) 6 - 57 U/L 09/23/2024 12:02 PM CDT [facility] AST 35 10 - 48 U/L 09/23/2024 12:02 PM T [facility] Protein Total 7.5 6.4 - 8.3 gm/dL 09/23/2024 12:02 PM T [facility] Albumin 3.8 3.4 - 5.0 gm/dL 09/23/2024 12:02 PM T [facility] Bilirubin Total 0.4 0.2 - 1.2 mg/dL 09/23/2024 12:02 PM T [facility] eGFR by CKD-EPI >90 >=90 mL/min/1.7 3 m2 09/23/2024 12:02 PM T [facility] Blood BLOOD SPECIMEN / Unknown Venipuncture / Unknown 09/23/2024 10:52 AM CDT 09/23/2024 11:42 AM CDT Alan Vail MD LAB - CHEMISTRY ORDERABLES Final Result Performing Organization Address City/State/[facility] Co de Phone Number [facility] [address] [place] [address] * (ABNORMAL) LIPID PROFILE (09/23/2024 10:52 AM CDT) Cholesterol 249(H) <200 mg/dL 09/23/2024 12:02 PM [facility] Triglycerides 243(H) <150 mg/dL 09/23/2024 12:02 PM [facility] HDL Cholesterol 38(L) >40 mg/dL 12:02 PM [facility] LDL Calculated 162(H) <130 mg/dL 09/23/2024 12:02 PM T [facility] VLDL Calculated 49(H) <=30 mg/dL 12:02 PM T [facility] Chol HDL Ratio 6.6(H) <4.5 09/23/2024 12:02 PM T [facility] LDL/HDL Ratio 4.3 <5.0 09/23/2024 12:02 PM T [facility] Blood BLOOD SPECIMEN / Unknown Venipuncture / Unknown 09/23/2024 10:52 AM CDT 09/23/2024 11:42 AM CDT Alan Vail MD LAB - CHEMISTRY ORDERABLES Final Result Performing Organization Address [facility] Co de Phone Number [facility] [address] [place] [address] * URINE CULTURE (09/16/2024 10:32 AM CDT) Culture Urine 50,000-100,000 CFU/mL urogenital mark 09/18/2024 12:21 AM CDT [facility] MICROBIOLOGY Urine URINE SPECIMEN OBTAINED BY CLEAN CATCH PROCEDURE / Unknown Collection / Unknown 09/16/2024 10:32 AM CDT 09/16/2024 12:49 PM CDT Alan Vail MD LAB - MICROBIOLOGY ORDERABLES Fi nal Result Performing Organization Address City/[facility] Co de Phone Number [facility] MICROBIOLOGY [address] [place], [place] [address] [phone] from Last 3 Months Insurance [facility] Address: [address] [place] [address] MEDICA[place] [id number] MEDICAID - OUT OF STATE Advance Directives * Full Code (Latest Code Status on File) Date Activated Date Inactivated Comments 08/13/2024 7:42 AM 08/16/2024 6:04 PM * Full Code Date Activated Date Inactivated Comments 08/11/2024 9:30 AM 08/13/2024 7:42 AM * Full Code Date Activated Date Inactivated Comments 08/07/2024 6:33 PM 08/11/2024 9:29 AM Care Teams Neurology Hospitalist Relationship Specialty Start Date End Date Bushra Tello DO [address] [place] [address] PCP - General Family Medicine 07/23/24
--- OUTSIDE RECORDS SUMMARY | 2024-12-10 23:21 | XMS_ITS | Data Portability ---
Author Organization [facility] Address [address] [address] Care Team Providers Care Technical Systems Architect Name Role Phone CAROLINE NICK Primary Care Provider [phone] Assessment Encounter Date Assessment Date Assessment LastModified [...] lab - CMP/CBC/ur ic acid 2023 024 [facility] (Lab), [address], [place], [address], 04:47:25 protein:cr eatinine ratio, urine 2023 024 [facility] (Lab), [address], [place], [address], 5 04:47:26 Referral None recorded. Procedures None recorded. Surgeries None recorded. Imaging US, obstetric, 2nd or 3rd trimester 2023 024 [email or web address], [address], [place], [address], 4 09:02:20 Medication Orders None recorded. Patient TargetsNo targets recorded. Patient InstructionsNo instructions recorded. Reason for Referral None Reported. Results Created Date Observation Date Name Description Value Unit Range Abnormal Flag Note LastModifiedBy Organization Detail LastModifiedTime 04/28/20 24 04/28/2024 PROTE IN/CR EATIN INE RATIO , URINE creatinine, urine 36.9 mg/dL R-No refer ence range estab lishe d for this assay Not Available [facility] (Lab) [address], [place], [address], 04/29/2024 05:18:31 04/28/20 24 04/28/2024 PROTE IN/CR EATIN INE RATIO , URINE protein, urine <4 mg/dL R-No refer ence range estab lishe d for this assay Not Available [facility] (Lab) [address], [place], [address], 04/29/2024 05:18:31 04/28/20 24 04/28/2024 PROTE IN/CR [...] fican t prote inuri a. Not Available [facility] (Lab) [address] , [place], [address], 04/29/2024 05:18:31 04/28/20 24 04/28/2024 CBC W/DIF F WBC 8.6 10'3/ uL 3.5-10 .5 Not Available [facility] (Lab) [address] , [place], [address], 04/29/2024 06:59:40 04/28/20 24 04/28/2024 CBC W/DIF F RBC 3.97 10'6/ uL (based on docume nted legal sex) 3.80-5 .20 Not Available [facility] (Lab) [address] , [place], [address], 04/29/2024 06:59:40 04/28/20 24 04/28/2024 CBC W/DIF F HGB 12.3 g/dL (based on docume nted legal sex) 11.6-1 5.4 Not Available [facility] (Lab) [address], [place], [address], 04/29/2024 06:59:40 04/28/20 24 04/28/2024 CBC W/DIF F HCT 36.0 % (based on docume nted legal sex) 34.0-4 5.0 Not Available [facility] (Lab) [address] , [place], [address], 04/29/2024 06:59:40 04/28/20 24 04/28/2024 CBC W/DIF F MCV 90.7 fL 80.0-9 9.0 Not Available [facility] (Lab) [address] , [place], [address], 04/29/2024 06:59:40 04/28/20 24 04/28/2024 CBC W/DIF F MCH 31.0 pg 27.0-3 4.0 Not Available [facility] (Lab) [address], [place], [address], 04/29/2024 06:59:40 04/28/20 24 04/28/2024 CBC W/DIF F MCHC 34.2 g/dL 32.0-3 5.5 Not Available [facility] (Lab) [address], [place], [address], 04/29/2024 06:59:40 04/28/20 24 04/28/2024 CBC W/DIF F RDW 13.2 % 11.0-1 5.0 Not Available [facility] (Lab) [address], [place], [address], 04/29/2024 06:59:40 04/28/20 24 04/28/2024 CBC W/DIF F plt 288 10'3/ uL 150-40 0 Not Available [facility] (Lab) [address], [place], [address], 04/29/2024 06:59:40 04/28/20 24 04/28/2024 CBC W/DIF F MPV 11.5 fL 8.8-12 .1 Not Available [facility] (Lab) [address], [place], [address], 04/29/2024 06:59:40 04/28/20 24 04/28/2024 CBC W/DIF F NRBC's 0.0 % 0.0 Not Available [facility] (Lab) [address], [place], [address], 04/29/2024 06:59:40 04/28/20 24 04/28/2024 CBC W/DIF F absolute NRBCs 0.0 10'3/ uL no refere nce range establ ished Not Available [facility] (Lab) [address], [place], [address], 04/29/2024 06:59:40 04/28/20 24 04/28/2024 CBC W/DIF F neutrophils 75.3 % 34.0-7 3.0 high Not Available [facility] (Lab) [address], [place], [address], 04/29/2024 06:59:40 04/28/20 24 04/28/2024 CBC W/DIF F lymphocytes 19.6 % 15.0-5 0.0 Not Available [facility] (Lab) [address], [place], [address], 04/29/2024 06:59:40 04/28/20 24 04/28/2024 CBC W/DIF F monocytes 4.1 % 1.0-15 .0 Not Available [facility] (Lab) [address] [place], [address], 04/29/2024 06:59:40 04/28/20 24 04/28/2024 CBC W/DIF F eosinophils 0.5 % 0.0-8. 0 Not Available [facility] (Lab) [address] [place], [address], 04/29/2024 06:59:40 04/28/20 24 04/28/2024 CBC W/DIF F basophils 0.3 % 0.0-2. 0 Not Available [facility] (Lab) [address] [place], [address], 04/29/2024 06:59:40 04/28/20 24 04/28/2024 CBC W/DIF F immature granulocytes 0.2 % no define d refere nce range Not Available [facility] (Lab) [address] [place], [address], 04/29/2024 06:59:40 04/28/20 24 04/28/2024 CBC W/DIF F absolute neutrophils 6.5 10'3/ uL 1.5-8. 0 Not Available [facility] (Lab) [address] [place], [address], 04/29/2024 06:59:40 04/28/20 24 04/28/2024 CBC W/DIF F absolute lymphocytes 1.7 10'3/ uL 1.0-4. 0 Not Available [facility] (Lab) [address] [place], [address], 04/29/2024 06:59:40 04/28/20 24 04/28/2024 CBC W/DIF F absolute monocytes 0.4 10'3/ uL 0.2-1. 0 Not Available [facility] (Lab) [address], [place], [address], 04/29/2024 06:59:40 04/28/20 24 04/28/2024 CBC W/DIF F absolute eosinophils 0.0 10'3/ uL 0.0-0. 6 Not Available [facility] (Lab) [address], [place], [address], 04/29/2024 06:59:40 04/28/20 24 04/28/2024 CBC W/DIF F absolute basophils 0.0 10'3/ uL 0.0-0. 3 Not Available [facility] (Lab) [address], [place], [address], 04/29/2024 06:59:40 04/28/20 24 04/28/2024 CBC W/DIF [...] resul ts are expec roseann. Not Available [facility] (Lab) [address], [place], [address], 04/29/2024 06:59:40 04/28/20 24 04/28/2024 URIC ACID uric acid 4.8 mg/dL 2.3-6. 6 Not Available [facility] (Lab) [address], [place], [address], 04/29/2024 06:59:41 04/28/20 24 04/28/2024 CMP(C OMPRE HENSI VE METAB OLIC PANEL ) sodium 137 mmol/ L 133-14 6 Not Available [facility] (Lab) [address], [place], [address], 04/29/2024 06:59:41 04/28/20 24 04/28/2024 CMP(C OMPRE HENSI VE METAB OLIC PANEL ) potassium 3.7 mmol/ L 3.5-5. 1 Not Available [facility] (Lab) [address], [place], [address], 04/29/2024 06:59:41 04/28/20 24 04/28/2024 CMP(C OMPRE HENSI VE METAB OLIC PANEL ) chloride 102 mmol/ L 98-107 Not Available [facility] (Lab) [address], [place], [address], 04/29/2024 06:59:41 04/28/20 24 04/28/2024 CMP(C OMPRE HENSI VE METAB OLIC PANEL ) carbon dioxide 24 mmol/ L 21-31 Not Available [facility] (Lab) [address], [place], [address], 04/29/2024 06:59:41 04/28/20 24 04/28/2024 CMP(C OMPRE HENSI VE METAB OLIC PANEL ) anion gap 11 mmol/ L 4-13 Not Available [facility] (Lab) [address] [place], [address], 04/29/2024 06:59:41 04/28/20 24 04/28/2024 CMP(C OMPRE HENSI VE METAB OLIC PANEL ) blood urea nitrogen 5 mg/dL 7-25 low Not Available [facility] (Lab) [address] [place], [address], 04/29/2024 06:59:41 04/28/20 24 04/28/2024 CMP(C OMPRE HENSI VE METAB OLIC PANEL ) creatinine 0.54 mg/dL 0.60-1 .30 low Not Available [facility] (Lab) [address], [place], [address], 04/29/2024 06:59:41 04/28/20 24 04/28/2024 CMP(C OMPRE HENSI VE METAB OLIC PANEL ) egfrcr (CKD-epi 2020) >90 mL/mi n/1.7 3_m2 >=60 Not Available [facility] (Lab) [address], [place], [address], 04/29/2024 06:59:41 04/28/20 24 04/28/2024 CMP(C OMPRE HENSI VE METAB OLIC PANEL ) calcium 8.9 mg/dL 8.3-10 .5 Not Available [facility] (Lab) [address], [place], [address], 04/29/2024 06:59:41 04/28/20 24 04/28/2024 CMP(C OMPRE HENSI VE METAB OLIC PANEL ) glucose 82 mg/dL 70-100 Not Available [facility] (Lab) [address], [place], [address], 04/29/2024 06:59:41 04/28/20 24 04/28/2024 CMP(C OMPRE HENSI VE METAB OLIC PANEL ) protein, total 6.6 g/dL 6.4-8. 3 Not Available [facility] (Lab) [address], [place], [address], 04/29/2024 06:59:41 04/28/20 24 04/28/2024 CMP(C OMPRE HENSI VE METAB OLIC PANEL ) albumin 3.8 g/dL 3.5-5. 0 Not Available [facility] (Lab) [address], [place], [address], 04/29/2024 06:59:41 04/28/20 24 04/28/2024 CMP(C OMPRE HENSI VE METAB OLIC PANEL ) ALT 13 units /L 9-43 Not Available [facility] (Lab) [address], [place], [address], 04/29/2024 06:59:41 04/28/20 24 04/28/2024 CMP(C OMPRE HENSI VE METAB OLIC PANEL ) alkaline phosphatase 83 units /L 34-104 Not Available [facility] (Lab) [address], [place], [address], 04/29/2024 06:59:41 04/28/20 24 04/28/2024 CMP(C OMPRE HENSI VE METAB OLIC PANEL ) AST 13 units /L 13-39 Not Available [facility] (Lab) [address], [place], [address], 04/29/2024 06:59:41 04/28/20 24 04/28/2024 CMP(C OMPRE HENSI VE METAB OLIC PANEL ) bilirubin, total 0.3 mg/dL 0.2-1. 2 Not Available [facility] (Lab) [address], [place], [address], 04/29/2024 06:59:41 06/03/20 24 06/03/2024 CMP/C BC/UR IC ACID WBC 9.6 10'3/ uL 3.5-10 .5 Not Available [facility] (Lab) [address], [place], [address], 06/04/2024 04:47:24 06/03/20 24 06/03/2024 CMP/C BC/UR IC ACID RBC 3.85 10'6/ uL (based on docume nted legal sex) 3.80-5 .20 Not Available [facility] (Lab) [address], [place], [address], 06/04/2024 04:47:24 06/03/20 24 06/03/2024 CMP/C BC/UR IC ACID HGB 12.1 g/dL (based on docume nted legal sex) 11.6-1 5.4 Not Available [facility] (Lab) [address] [place], [address], 06/04/2024 04:47:24 12/31/20 24 06/03/2024 CMP/C BC/UR IC ACID HCT 36.4 % (based on docume nted legal sex) 34.0-4 5.0 Not Available [facility] (Lab) [address], [place], [address], 06/04/2024 04:47:24 06/03/20 24 06/03/2024 CMP/C BC/UR IC ACID MCV 94.5 fL 80.0-9 9.0 Not Available [facility] (Lab) [address], [place], [address], 06/04/2024 04:47:24 06/03/20 24 06/03/2024 CMP/C BC/UR IC ACID MCH 31.4 pg 27.0-3 4.0 Not Available [facility] (Lab) [address], [place], [address], 06/04/2024 04:47:24 06/03/20 24 06/03/2024 CMP/C BC/UR IC ACID MCHC 33.2 g/dL 32.0-3 5.5 Not Available [facility] (Lab) [address], [place], [address], 06/04/2024 04:47:24 06/03/20 24 06/03/2024 CMP/C BC/UR IC ACID RDW 13.3 % 11.0-1 5.0 Not Available [facility] (Lab) [address], [place], [address], 06/04/2024 04:47:24 06/03/20 24 06/03/2024 CMP/C BC/UR IC ACID plt 291 10'3/ uL 150-40 0 Not Available [facility] (Lab) [address], [place], [address], 06/04/2024 04:47:24 06/03/20 24 06/03/2024 CMP/C BC/UR IC ACID MPV 11.8 fL 8.8-12 .1 Not Available [facility] (Lab) [address], [place], [address], 06/04/2024 04:47:24 06/03/20 24 06/03/2024 CMP/C BC/UR IC ACID NRBC's 0.0 % 0.0 Not Available [facility] (Lab) [address], [place], [address], 06/04/2024 04:47:24 06/03/20 24 06/03/2024 CMP/C BC/UR IC ACID absolute NRBCs 0.0 10'3/ uL no refere nce range establ ished Not Available [facility] (Lab) [address], [place], [address], 06/04/2024 04:47:24 06/03/20 24 06/03/2024 CMP/C BC/UR IC ACID neutrophils 77.7 % 34.0-7 3.0 high Not Available [facility] (Lab) [address], [place], [address], 06/04/2024 04:47:24 06/03/20 24 06/03/2024 CMP/C BC/UR IC ACID lymphocytes 17.0 % 15.0-5 0.0 Not Available [facility] (Lab) [address] [place], [address], 06/04/2024 04:47:24 06/03/20 24 06/03/2024 CMP/C BC/UR IC ACID monocytes 4.3 % 1.0-15 .0 Not Available [facility] (Lab) [address] [place], [address], 06/04/2024 04:47:24 06/03/20 24 06/03/2024 CMP/C BC/UR IC ACID eosinophils 0.4 % 0.0-8. 0 Not Available [facility] (Lab) [address] [place], [address], 06/04/2024 04:47:24 06/03/20 24 06/03/2024 CMP/C BC/UR IC ACID basophils 0.2 % 0.0-2. 0 Not Available [facility] (Lab) [address], [place], [address], 06/04/2024 04:47:24 06/03/20 24 06/03/2024 CMP/C BC/UR IC ACID immature granulocytes 0.4 % no define d refere nce range Not Available [facility] (Lab) [address], [place], [address], 06/04/2024 04:47:24 06/03/20 24 06/03/2024 CMP/C BC/UR IC ACID absolute neutrophils 7.5 10'3/ uL 1.5-8. 0 Not Available [facility] (Lab) [address], [place], [address], 06/04/2024 04:47:24 06/03/20 24 06/03/2024 CMP/C BC/UR IC ACID absolute lymphocytes 1.6 10'3/ uL 1.0-4. 0 Not Available [facility] (Lab) [address], [place], [address], 06/04/2024 04:47:24 06/03/20 24 06/03/2024 CMP/C BC/UR IC ACID absolute monocytes 0.4 10'3/ uL 0.2-1. 0 Not Available [facility] (Lab) [address] [place], [address], 06/04/2024 04:47:24 06/03/20 24 06/03/2024 CMP/C BC/UR IC ACID absolute eosinophils 0.0 10'3/ uL 0.0-0. 6 Not Available [facility] (Lab) [address] [place], [address], 06/04/2024 04:47:24 06/03/20 24 06/03/2024 CMP/C BC/UR IC ACID absolute basophils 0.0 10'3/ uL 0.0-0. 3 Not Available [facility] (Lab) [address], [place], [address], 06/04/2024 04:47:24 06/03/20 24 06/03/2024 CMP/C BC/UR [...] resul ts are expec roseann. Not Available [facility] (Lab) [address], [place], [address], 06/04/2024 04:47:24 06/03/20 24 06/03/2024 CMP/C BC/UR IC ACID uric acid 4.8 mg/dL 2.3-6. 6 Not Available [facility] (Lab) [address], [place], [address], 06/04/2024 04:47:24 06/03/20 24 06/03/2024 CMP/C BC/UR IC ACID sodium 136 mmol/ L 133-14 6 Not Available [facility] (Lab) [address] [place], [address], 06/04/2024 04:47:24 06/03/20 24 06/03/2024 CMP/C BC/UR IC ACID potassium 4.1 mmol/ L 3.5-5. 1 Not Available [facility] (Lab) [address] [place], [address], 06/04/2024 04:47:24 06/03/20 24 06/03/2024 CMP/C BC/UR IC ACID chloride 103 mmol/ L 98-107 Not Available [facility] (Lab) [address] [place], [address], 06/04/2024 04:47:24 06/03/20 24 06/03/2024 CMP/C BC/UR IC ACID carbon dioxide 23 mmol/ L 21- Not Available [facility] (Lab) [address], [place], [address], 06/04/2024 04:47:24 06/03/20 24 06/03/2024 CMP/C BC/UR IC ACID anion gap 10 mmol/ L 4-13 Not Available [facility] (Lab) [address], [place], [address], 06/04/2024 04:47:24 06/03/20 24 06/03/2024 CMP/C BC/UR IC ACID blood urea nitrogen 9 mg/dL 7-25 Not Available [facility] (Lab) [address], [place], [address], 06/04/2024 04:47:24 06/03/20 24 06/03/2024 CMP/C BC/UR IC ACID creatinine 0.57 mg/dL 0.60-1 .30 low Not Available [facility] (Lab) [address], [place], [address], 06/04/2024 04:47:24 06/03/20 24 06/03/2024 CMP/C BC/UR IC ACID egfrcr (CKD-epi 2020) >90 mL/mi n/1.7 3_m2 >=60 Not Available [facility] (Lab) [address], [place], [address], 06/04/2024 04:47:24 06/03/20 24 06/03/2024 CMP/C BC/UR IC ACID calcium 9.1 mg/dL 8.3-10 .5 Not Available [facility] (Lab) [address], [place], [address], 06/04/2024 04:47:24 06/03/20 24 06/03/2024 CMP/C BC/UR IC ACID glucose 95 mg/dL 70-100 Not Available [facility] (Lab) [address], [place], [address], 06/04/2024 04:47:24 06/03/20 24 06/03/2024 CMP/C BC/UR IC ACID protein, total 6.9 g/dL 6.4-8. 3 Not Available [facility] (Lab) [address], [place], [address], 06/04/2024 04:47:24 06/03/20 24 06/03/2024 CMP/C BC/UR IC ACID albumin 3.8 g/dL 3.5-5. 0 Not Available [facility] (Lab) [address], [place], [address], 06/04/2024 04:47:24 06/03/20 24 06/03/2024 CMP/C BC/UR IC ACID ALT 14 units /L 9-43 Not Available [facility] (Lab) [address], [place], [address], 06/04/2024 04:47:24 06/03/20 24 06/03/2024 CMP/C BC/UR IC ACID alkaline phosphatase 96 units /L 34-104 Not Available [facility] (Lab) [address], [place], [address], 06/04/2024 04:47:24 06/03/20 24 06/03/2024 CMP/C BC/UR IC ACID AST 12 units /L 13-39 low Not Available [facility] (Lab) [address] [place], [address], 06/04/2024 04:47:24 06/03/20 24 06/03/2024 CMP/C BC/UR IC ACID bilirubin, total 0.3 mg/dL 0.2-1. 2 Not Available [facility] (Lab) [address] [place], [address], 06/04/2024 04:47:24 06/03/20 24 06/03/2024 PROTE IN/CR EATIN INE RATIO , URINE creatinine, urine 101.8 mg/dL R-No refer ence range estab lishe d for this assay Not Available [facility] (Lab) [address], [place], [address], 06/04/2024 04:47:26 06/03/20 24 06/03/2024 PROTE IN/CR EATIN INE RATIO , URINE protein, urine 19 mg/dL R-No refer ence range estab lishe d for this assay Not Available [facility] (Lab) [address], [place], [address], 06/04/2024 04:47:26 06/03/20 24 06/03/2024 PROTE IN/CR [...] fican t prote inuri a. Not Available [facility] (Lab) [address], [place], [address], 06/04/2024 04:47:26 07/02/19 25 07/02/2024 HEMOG LOBIN (HGB) HGB 11.8 g/dL (based on docume nted legal sex) 11.6-1 5.4 Not Available [facility] (Lab) [address], [place], [address], 07/03/2024 12:58:59 07/02/1907/02/2024 HEMAT OCRIT (HCT) HCT 34.9 % (based on docume nted legal sex) 34.0-4 5.0 Not Available [facility] (Lab) [address], [place], [address], 07/03/2024 12:58:59 07/02/19 25 07/02/2024 GTT - GESTA KEE L SCREE N, ACOG OB glucose, 1 hour screen 103 mg/dL 70-135 Not Available [facility] (Lab) [address], [place], [address], 07/03/2024 12:59:00 07/02/19 25 07/02/2024 HIV 1/2 ANTIG EN/AN TIBOD Y, REFLE X CONFI RMATI ON HIV antigen/anti body Nonrea ctive nonrea ctive HIV-1 antig en and HIV-1 /HIV- 2 antib odies were not detec roseann. No labor atory evide nce of HIV infec tion. Not Available [facility] (Lab) [address], [place], [address], 07/03/2024 12:59:00 07/02/19 25 07/02/2024 RPR SCREE N, REFLE X TITER /CONF IRMAT ION RPR screen Nonrea ctive nonrea ctive Not Available [facility] (Lab) [address] [place], [address], 07/03/2024 12:59:00 05/05/20 24 05/06/2024 US, obste tric, 2nd or 3rd trime ster No observ ation record ed. [email or web address] [place] [address], [place], [address], 05/06/2024 13:02:24 05/05/20 24 05/05/2024 US, obste tric, follo w-up No observ ation record ed. [email or web address] [address], [place], [address], 05/05/2024 23:01:08 06/02/20 24 05/30/2024 US, obste tric, follo w-up No observ ation record ed. [email or web address] [facility] [address] [place], [address], 06/06/2024 10:12:25 06/02/20 24 05/30/2024 US, obste tric, follo w-up No observ ation record ed. [email or web address] [facility] [address], [address], 06/05/2024 07:25:53 06/23/19 25 05/30/2024 US, obste tric, follo w-up No observ ation record ed. [email or web address] [facility] [address] [facility], [place], [address], 06/27/2024 13:41:49 07/09/19 25 07/09/2024 US, obste tric, bioph ysica l profi le + non-s tress test No observ ation record ed. [address] [facility] [address], [address], 07/10/2024 15:11:21 07/09/19 25 07/09/2024 US, obste tric, bioph ysica l profi le + non-s tress test No observ ation record ed. [address] [facility] [address], [address], 07/14/2024 10:13:03 07/09/19 25 07/09/2024 US, obste tric, bioph ysica l profi le + non-s tress test No observ ation record ed. [address] [facility] [address], [address], 07/14/2024 10:13:24 07/13/19 25 07/13/2024 non-s tress test No observ ation record ed. [address], [place], [address], 07/25/2024 14:02:00 07/21/19 25 07/18/2024 US, obste tric, follo w-up No observ ation record ed. [email or web address] [facility] [address] [place] [address], [address], 07/22/2024 15:44:33 07/24/19 25 07/23/2024 US, obste tric, follo w-up No observ ation record ed. [facility] [address] , [place], [address], 07/28/2024 22:47:52 07/28/19 25 07/28/2024 non-s tress test No observ ation record ed. [address] [facility], [place], [address], 07/31/2024 10:53:46 08/01/19 25 08/01/2024 US, obste tric, follo w-up No observ ation record ed. [address] [facility] [address], [address], 08/03/2024 22:08:00 08/05/19 25 08/01/2024 US, obste tric, follo w-up No observ ation record ed. [address] [facility] [address], [address], 08/04/2024 22:16:09 08/09/19 25 08/07/2024 US, obste tric, follo w-up No observ ation record ed. [address] [address], [place], [address], 08/11/2024 09:42:25 Result Notes None recorded. Problems Name Problem SNOMED Code Status Onset Date Resolution Date Notes Provider Name and Address Organization Details Recorded Time Surveill ance of contrace ption Completed 201706/22/2020 Encounte r for surveill ance of contrace ptives, unspecif ied;Ray rded Elsewher e: No Locat ion: [facility] S ource: EHR Weft Straightener gabi: N Practi ce ID: 0001 Jordi lable Time: 02:45:00 PM Carmen goldberg, [facility] 1 11:56:[address] Concept Completed 201706/22/2020 Well woman check w/o abnormal finding; Recorded Elsewher e: No Locat ion: [facility] S ource: EHR Weft Straightener gabi: N Practi ce ID: 0001 Jordi lable Time: 02:45:00 PM Carmen Vasquez [facility], [facility] 1 11:56:[address] Concept Completed 201706/22/2020 Encntr for routine child health exam w/o abnormal findings ;Recorde d Elsewher e: No Locat ion: [facility] S ource: EHR Weft Straightener gabi: N Practi ce ID: 0001 Jordi lable Time: 02:45:00 PM Carmen Vas[facility], [facility] 1 11:56:00 Uses combined oral contrace ption [id number] Completed 201706/22/2020 Encounte r for surveill ance of contrace ptive pills;Pr actice ID: 0001 Carmen Vasquez [facility], [facility] 1 11:55:58 Hyperten sive disorder 38049251 Active 2022 Praveena Vinson [facility], [facility] 3 14:50:42 Mixed anxiety and depressi ve disorder 611750796 Active not treated currentl y Mikael Trujillo MD [address], [place], [address], , P[facility] 4 15:50:21 Asthma 146240281 Active Praveena Vinson [facility], [facility] 4 15:44:53 Pregnanc y 97673190 Active 2023 Praveena Vinson [facility] 4 15:44:34 Asthma 459470644 Active Praveena Alisson [facility] 4 15:44:53 [facility] hyperten loly 19392841 Active 38wk delivery 04/28 - 200mg bid [place], bASA 2 tablets daily & MFM consult per SB . MFM follow up schedule d 07/25 US only MFM pt monitor BP at home send weekly log Antental testing @ 32wks Gricel Cabral [facility] 5 15:30:56 Mixed anxiety and depressi ve disorder 977485003 Active not treated currentl y Mikael Trujillo MD [address], [place], [address], , P.C. 4 15:50:21 Body mass index 30+ - obesity 657909152 Active weekly antenata l testing at 37wks Shazia Noyola [facility] 5 22:17:44 Body mass index 30+ - obesity 830470902 Active weekly antenata l testing at 37wks Shazia Noyola [facility] [facility] 5 22:17:44 Pre-ecla mpsia [id number] Active PCR .60 Shazia Noyola [facility] 5 12:08:48 Problem Notes None recorded. Procedures Surgical History Date Name Laterality Status Provider Name and Address Organization Details Recorded Time 4 Date of Last Pap Smear completed Praveena Vinson [facility] 02/11/2024 14:41:19 1 extraction of wisdom tooth completed Praveena Vinson [facility] 06/08/2022 14:51:58 Imaging Results None recorded. Procedure Notes None recorded. Medical Equipment None Reported. Allergies Allergen ID Allergen Name Allergen Category Reaction Reaction Severity Criticality Documentation Date Start Date Code Code System Note Provider Name and Address Organization Details Recorded Time 01767 vancomyci n medicatio n Not available Not available Not available 02/11/2024 20856 [facility] 14:46:41 Medications Name Sig Start [...] Body mass index (BMI) Body height Systolic And Diastolic Systolic And Diastolic Systolic And Diastolic Provider Name and Address Organization Details Last Updated DateTime 5 228326. 68000 g 39 kg/m2 170.18 cm 165/116 mm[Hg] 166/112 mm[Hg] 152/108 mm[Hg] Andreina Harris [facility] 5 17:09:52 Date Recorded Body weight Systolic And Diastolic Provider Name and Address Organization Details Last Updated DateTime 05/05/2024 353798.58401 g 165/110 mm[Hg] [facility] 05/05/2024 16:49:40 Date Recorded Body weight Systolic And Diastolic Provider Name and Address Organization Details Last Updated DateTime 05/19/2024 539299.83395 g 167/99 mm[Hg] [facility] 05/19/2024 16:31:59 Date Recorded Body weight Body mass index (BMI) Body height Systolic And Diastolic Provider Name and Address Organization Details Last Updated DateTime 06/03/2024 101818.35 354 g 37.9 kg/m2 170.18 cm 144/93 mm[Hg] [facility] 06/03/2024 09:35:34 Social History Question Answer Notes LastModified by Organizat ion Details LastModified Time Tobacco Smoking Status Never Smoker Praveena goldberg, [facility] 07/05/2022 10:29:23 Do You Have An Advance Directive? No [email or web address] Information n ot available 11/02/2020 Are You Blind Or Do You Have Difficulty Seeing? No [email or web address] Information n ot available 11/02/2020 What Is Your Level Of Caffeine Consumption? Occasional [email or web address] Information not available 06/22/2020 How Much Tobacco Do You Chew? None Information not available 11/02/2020 In The 14 Days Before Symptom Onset, Have You Had Close Contact With A Laboratory-confirm ed COVID-19 While That Case Was Ill? No [email or web address] Information n ot available 11/02/2020 In The 14 Days Before Symptom Onset, Have You Had Close Contact With A Person Who Is Under Investigation For COVID-19 While That Person Was Ill? No [email or web address] Information not available 11/02/2020 Have You Been To An Area Known To Be High Risk For COVID-19? No [email or web address] Information not available 11/02/2020 Are You Deaf Or Do You Have Serious Difficulty Hearing? No [email or web address] Information not available 11/02/2020 What Type Of Diet Are You Following? REGULAR [email or web address] Information n ot available 11/02/2020 What Is The Highest Grade Or Level Of School You Have Completed Or The Highest Degree You Have Received? [id number] Information not available 02/11/2024 Are There Any Guns Present In Your Home? Yes [email or web address] Information not available 11/02/2020 Do You Use Protection During Sex? No [email or web address] Information not available 02/11/2024 Do You Use Your Seat Belt Or Car Seat Routinely? Yes Information not available 11/02/2020 Do You Have Smoke And Carbon Monoxide Detectors In Your Home? Yes [email or web address] Information not available 11/02/2020 How Much Tobacco Do You Smoke? No [email or web address] Information not available 11/02/2020 Do You Use Sunscreen Routinely? Yes [email or web address] Information not available 11/02/2020 Has Tobacco Cessation Counseling Been Provided? No [email or web address] Information not available 07/05/2022 Have You Used IV Drugs? No [email or web address] Information not available 11/02/2020 Do You Have Difficulty Walking Or Climbing Stairs? No [email or web address] Information not available 07/05/2022 Sex: Unknown Functional Status Question Answer Note LastModified by Organizat ion Details LastModified Time Do you use any illicit or recreational drugs? No Information not available 06/22/2020 Do you or have you ever used any other forms of tobacco or nicotine? No [email or web address] Information not available 07/05/2022 What is your level of alcohol consumption? None [email or web address] Information not available 06/22/2020 Are you able to walk? YESWOREST [email or web address] Information not available 11/02/2020 Are you able to care for yourself? 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 Na [email or web address] Information not available 11/02/2020 Do you have difficulty dressing or bathing? No [email or web address] Information not available 07/05/2022 What is your exercise level? Occasional Information not available 06/22/2020 Mental Status Question Answer Note LastModified by Organization D etails LastModified Time Do you feel stressed (tense, restless, nervous, or anxious, or unable to sleep at night)? [id number] [email or web address] Information not available 11/02/2020 Family History Relationship Description Onset Age of this Age Resolved Age Notes LastModified by Organization Details LastModified Time Father No current problems or disability [email or web address] Not available 06/22 11:56:45 Mother No current problems or disability Not available 06/22 11:56:45 Medical History Condition [...] SNOMED-CT Code Diagnosis ICD10 Code Diagnosis Note [id number] Rocío Edmonds CNM [facility] [address] [address] 06/22/2020 14:02:32 06/22/2020 15:04:44 Surveillance of contraception 792018023 Z30.40 Pt would like to restart ocp. [...] and signed. Pt verbalized understand ing. 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 All staff wore face coverings during this encounter, as well as provided additional cleaning and sanitizing of all surfaces, including countertop s, pens, chairs, door handles, light switches, etc, prior to and following the patient s visit. 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 All staff wore face coverings during this encounter, as well as provided additional cleaning and sanitizing of all surfaces, including countertop s, pens, chairs, door handles, light switches, etc, prior to and following the patient s visit. Contracept ion care management 124241096 Z30.9 Elevated blood pressure today. Pt states [...] Elevated blood-pressure reading without diagnosis of hypertension 001838387 R03.0 Pt will call pcp for further evaluation . Discussed heart healthy diet and exercise. 30321 Rocío Edmonds [facility] [address],[place] [address] 10/18/2020 13:57:16 10/18/2020 14:16:26 Surveillance of oral contraception 549798439 Z30.41 Pt happy with new pill and would like to continue. [id number] Shraddha George [facility] [address],[place] [address] 11/02/2020 12:00:56 11/02/2020 13:27:10 Vaginitis 38159053 N76.0 22966 Tamara Menon [facility] [address],[place] [address] 12/16/2020 09:25:26 12/16/2020 11:02:32 Increased frequency of urination 689222333 R35.0 84435 Ingrid Khanna MD [place] [address],[place] [address] 07/26/2021 11:44:20 07/26/2021 12:24:34 Urinary tract infectious disease 31350232 N39.0 Dysuria 44599480 R30.9 Initial pr escription of oral contraception 331576605 Z30.011 03525 Ingrid Khanna MD [place] [address],[place] [address] 08/30/2021 09:55:58 08/30/2021 10:30:52 Surveillance of oral contraception 122005155 Z30.41 [id number] Mikael Trujillo MD [place] [address],[place] [address] 06/08/2022 14:03:05 06/08/2022 15:00:16 Dysuria 59830458 R30.0 Urinary tr act infectious disease 52427898 N39.0 [id number] Rocío Edmonds CNM [place] [address],[place] [address] 06/20/2022 10:45:43 06/20/2022 11:46:08 test positive 972584517 Z32.01 Risk factors addressed: Tobacco Cessation, Safe [...] well woman examinatio n and address preventati ve healthcare . [id number] Mikael Trujillo MD [place] [address],[place] [address] 06/20/2022 10:45:14 06/20/2022 11:28:10 screening 145349855 Z36.87 [id number] Mikael Trujillo MD [place] [address],[place] [address] 06/23/2022 10:57:34 06/23/2022 13:08:25 Dysuria 62140641 R30.0 Pt here for dysuria and feeling [...] meantime. Pt verbalized understand ing. LEFTY tracy [id number] Mikael Trujillo MD [place] [address],[place] [address] 07/05/2022 09:57:49 07/05/2022 13:33:51 Missed miscarriage 26814463 O02.1 Z3A.01 [id number] Shraddha George [facility] [address],[place] [address] 07/05/2022 10:29:08 07/05/2022 11:35:56 Missed miscarriage 69099784 O02.1 Acute urin yasmin tract infection 394459651 N39.0 increase water, urine for culture [id number] Mikael Trujillo MD [place] [address],[place] [address] 07/21/2022 15:42:41 07/24/2022 16:14:04 Miscarriage without complication 11898343 O03.9 Z3A.00 [id number] Mikael Trujillo MD [place] [address],[place] [address] 07/28/2022 15:31:42 07/28/2022 16:29:33 Retained products of conception 293010572 O02.1 Z3A.00 [id number] Mikael Trujillo MD [place] [address],[place] [address] 08/07/2022 10:02:26 08/07/2022 16:40:25 Retained products of conception 539243063 O02.1 Z3A.00 22-year-ol d female with persistent [...] high. It was 55 two weeks ago. [id number] Mikael Truijllo MD [place] [address],[place] [address] 02/11/2024 13:39:54 02/11/2024 14:20:51 [id number] Mikael Trujillo MD [place] [address],[place] [address] 02/11/2024 13:41:01 02/12/2024 14:00:34 Amenorrhea 17425783 N91.2 this patient is a 23-year-ol d [...] begin routine care at her next visit. [id number] Mikael Trujillo MD [facility] [address],[place] [address] 03/10/2024 14:45:06 03/10/2024 15:17:27 screening 770019062 Z36.82 Z3A.11 [id number] Mikael Trujillo MD [place] [address],[place] [address] 03/10/2024 14:45:28 03/10/2024 16:04:58 Routine care 932221963 Z34.90 Gestation period, 11 weeks 96061835 Z3A.11 [id number] MD Kalin Pritchard [address],[place] [address] 04/10/2024 16:16:46 04/10/2024 17:30:34 Routine care 391881456 Z34.90 [id number] MD Kalin Pritchard [address],[place] [address] 04/14/2024 13:50:00 04/14/2024 14:42:58 [id number] MD Kalin Pritchard [address],[place] [address] 04/28/2024 14:09:15 04/29/2024 10:04:44 Hypertensive disorder 03988983 I10 [id number] MD Kalin Pritchard [address] [address] 05/05/2024 15:24:47 05/05/2024 16:56:18 screening for malformation 180121471 Z36.3 Z3A.19 [id number] MD Kalin Pritchard [address],[place] [address] 05/05/2024 15:25:15 05/06/2024 06:17:49 Routine care 557532564 Z34.90 [id number] MD Kalin Pritchard [address],[place] [address] 05/19/2024 15:49:02 05/19/2024 17:10:47 Routine care 219727267 Z34.90 [id number] MD Kalin Pritchard [address],[place] [address] 06/03/2024 09:25:28 06/03/2024 10:21:42 Routine care 890743993 Z34.90 Pre-eclampsia 575982429 O14.92 [id number] MD Kalin Pritchard [address] [address] 07/02/2024 16:11:40 07/03/2024 09:52:16 Routine care 845887943 Z34.90 Health Concerns Section Related Observation LastModified by Organization Detai ls LastModified Time None Recorded Concern Status LastModified by Organization Details LastModified Time None Recorded Advance Directives Directive N: Payers Insurance Date Sequence Insurance Name Policy Number Policy Pickard Covered Member ID Pickard Member ID Guarantor Name 07/02/[address] [facility] [id number] Ashley Zacariassteven [id number] Ashley Christiansen Rafael 07/25/2024 1 [id number] [id number] Ashley Zacariassteven [id number] Ashley Christiansen Rafael 06/06/[address] [facility] ([facility] Jorden Pardo Mccabe [id number] Ashley Hall 02/06/2024 1 [employer] ([facility]) [id number] Jorden Mccabe [id number] Ashley Christiansen Rafael OBGyn Episode Ob Episode Information Episode Created Date Number of Fetuses Patient Bloodtype Patient rh Status Prepregnancy Weight lbs Domestic Partner Domestic Partner Phone Father Name Fitness Worker Status 07/05/19 23 1 CLOSED Fetus Data First Name Last Name Admitted to NICU Weight (g) Sex Living Outcome Pediatric Complications Fetus ID Race Codes Race Delivery Type , Spontane ous [id number] Leon Calculation Initial Leon Date Initial Exam [...] Domestic Partner Domestic Partner Phone Father Name Fitness Worker Status 03/10/20 24 1 A Positive 236 Darlene Foster OPEN Fetus Data First Name Last Name Admitted to NICU Weight (g) Sex Living Outcome Pediatric Complications Fetus ID Race Codes Race Delivery Type [id number] Problems Problem Notes testing at 32wksLe gina II US 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 MFM follow up scheduled 07/25 US onlyM pt monitor BP at home send weekly logAntental testing @ 32wks Body mass index 30+ - obesity 474048846 weekly antenata l testing at 37wks Pre-eclampsia 656510538 PCR .6 0 Asthma 158182651 Mixed anxiety and depressive disorder 319154140 not gopi whitfield currently Leon Calculation Initial Leon Date [...] Weight in lbs Pre/Post Dialysis Refused Weight 238.035209144151 BP Diastolic BP Location Tested BP Systolic [...] Type Weight in lbs Pre/Post Dialysis Refused 236.859082944781 BP Diastolic BP Location Tested BP Systolic [...] Type Weight in lbs Pre/Post Dialysis Refused 237.399653907530 BP Diastolic BP Location Tested BP Systolic [...] Type Weight in lbs Pre/Post Dialysis Refused 236.753354246167 BP Diastolic BP Location Tested BP Systolic [...] pressure check and to do referral to [facility]. Flowsheet Date 04/29/2024 Guillaume Score Blood [...] Type Weight in lbs Pre/Post Dialysis Refused 236.498666788955 BP Diastolic BP Location Tested BP Systolic [...] Type Weight in lbs Pre/Post Dialysis Refused 238.761516989666 BP Diastolic BP Location Tested BP Systolic BP Type 99 L arm 167 sitting Fetus Heart Rate Present A 162 Fetus Movement A Yes Comments reviewed blood pressure is f rom her home monitoring. They are excellent. She continues to have severe range pressures when she is measured here. patient to see [facility]. Patient to continue Flowsheet Date 06/03/2024 Guillaume Score Blood Edema Fundus Height Fundus Units Glucose Ketones Leukocytes Nitrite Labor Signs Protein Cervic Dilation Cervic Effacement Cervic Station Type Weight in lbs Pre/Post Dialysis Refused 242.866540121490 BP Diastolic BP Location Tested BP Systolic [...] Type Weight in lbs Pre/Post Dialysis Refused 249.072230035273 BP Diastolic BP Location Tested BP Systolic [...]
[2024-12-10 23:28] VITALS: BP 127/77; PULSE 122; RESP 18; TEMP 37.2; O2SAT 97
--- NOTE | 2024-12-10 23:30 | ECG_ITS ---
Test Date: 2024-12-10 23:36:52 Measurements Intervals [place] Rate: 113 P: 39 MD: 156 QRS: 54 QRSD: 95 T: 7 QT: 322 QTc: 443 Interpretive Statements SINUS TACHYCARDIA NONSPECIFIC ST & T-WAVE ABNORMALITY ABNORMAL RHYTHM ECG WARNING: DATA QUALITY MAY AFFECT INTERPRETATION Compared to ECG 11/11/2024 19:36:39 T-wave abnormality now present Sinus rhythm no longer present Electronically Signed On 12-11-2024 11:50:59 CDT by David Raines M.D.
--- NOTE | 2024-12-10 23:31 | ED_ITS ---
HPI - Chest Pain General Chief Complaint: Anxiety Stated Complaint: chest pressure Time Seen by Provider: 12/10/24 23:29 Source: patient and EMS Mode of arrival: EMS History of Present Illness HPI narrative: 24 years old white female came to the ED by ambulance from home complaining of chest pain and dizziness Patient was seen at [facility] recently for the same symptoms and was diagnosed of anxiety. History of anxiety and depression. Patient denied smoking or drinking or using drugs. In the ED patient feel more, and more relaxed compared to at home. No family history of coronary artery disease, patient does not smoke, patient is physically active, no coronary artery risk factors. Related Data Allergies Allergy/AdvReac Type Severity Reaction Status Date / Time vancomycin Allergy Unknown Rash Verified 12/10/24 23:40 [facility] Past Medical History Medical History Wears glasses Claustrophobia Moderate right ankle sprain Surgical History Surgical History H/O section August 12, 2024 H/O laparoscopy Family History Family History Father Hypertension Mother Leukemia Hypertension Depression Sibling Asthma Depression Grandparent Skin cancer Diabetes mellitus Social History Social History Smoking status: Never smoker Alcohol intake: never Substance use: never Substance use type: does not use Lack of Transportation: No Lack of Food: Never True Current Housing: I Have Housing Concerned About Future Housing: No Difficulty Paying Gas/Electric Bills: No Difficulty Paying for Meds: No Currently Unemployed: No Education: High School Diploma/GED Difficulty w/ Childcare or Family Care: No Living arrangements: with family Occupation/Education: student Gender identity (if verbalized by the patient): Female Course Vital Signs Vital signs: Vital Signs Temperature 37.2 C 12/10/24 23:28 Pulse Rate 122 H 12/10/24 23:28 Respiratory Rate 18 12/10/24 23:28 Blood Pressure 127/77 12/10/24 23:28 Pulse Oximetry 97 12/10/24 23:28 Oxygen Delivery Room Air 12/10/24 23:28 Temperature 37.2 C 12/10/24 23:28 Pulse Rate 122 H 12/10/24 23:28 Respiratory Rate 18 12/10/24 23:28 Blood Pressure 127/77 12/10/24 23:28 Pulse Oximetry 97 12/10/24 23:28 Oxygen Delivery Room Air 12/10/24 23:28 MDM - Chest Pain MDM Narrative Medical decision making narrative: patient presents with anxiety like symptoms, Symptom resolved completely after 1 mg of Ativan p.o. EKG showed no significant abnormality compared to the previous 1 Chest x-ray showed no acute abnormalities. Diagnosis anxiety like symptoms. The pt was discharged to home.the pt,s condition upon discharge was fair,education was provided to the pt in reference to the final impression,discharge study results,treatment,prognosis and need for follow up . Differential Diagnosis Differential diagnosis: Likely other (As above) Imaging Data Radiologist's impression: Impressions Chest X-Ray 12/10/24 23:46 IMPRESSION: No acute cardiopulmonary pathology. ECG Data EKG #1: Attestation: I personally reviewed and interpreted this ECG as follows: ECG completion date: 12/11/24 Prior ECG tracings: available for review Interpretation: Sinus tachycardia at 113 beats per minute, nonspecific ST T-wave abnormality, abnormal rhythm EKG, compared to EKG on November 11, 2024 sinus tachycardia now present, otherwise no significant changes Critical Care Time Critical Care Time Critical Care Time: No Discharge Plan Discharge Clinical Impression: Anxiety-like symptoms Patient Disposition: Home Condition: Improved Instructions: Anxiety (ED) Additional Instructions: Return if symptoms are worsening , call your family physician for appointment, take Tylenol as as needed for aches and pain, continue home medications. Patient Language: Danish Prescriptions: No Action sertraline 25 mg tablet 25 mg PO DAILY Qty: 30 0RF albuterol sulfate 90 mcg/actuation HFA aerosol inhaler 2 inh inhalation Q4H PRN (Reason: shortness of breath or wheezing) Qty: 8.5 5RF labetalol 200 mg tablet 200 mg PO ONCE Qty: 90 1RF nifedipine 60 mg tablet extended release 60 mg PO DAILY Qty: 90 1RF Follow-up/Referrals: Bushra Tello DO [Primary Care Provider] - Quality HEART score for chest pain patients History: slightly suspicious ECG: normal Age: < or = to 45 years Risk factors: 1 or 2 risk factors Troponin: < or = to 1x normal limit Heart score: 1
[2024-12-10] MEDS: LORazepam (*CRX) 1 MG TABLET PO (23:47)
--- OUTSIDE RECORDS SUMMARY | 2024-12-11 00:27 | XMS_ITS | Clinical Summary ---
Author Organization [facility] Address [address] [place] [address] Care Team Providers Care Tea Bag Packer Name Role Phone Bushra Tello DO Primary Care Provider [phone] Source Comments [facility],non-owned Affiliates and Associated Physician Practices is amultiple site organization consisting of ambulatory clinics and hospital sitesin [place], [place], [place] and [place]. This disclosure is being madepursuant to the Care Everywhere program and may not contain all information available regarding this patient. Last updated 18.[facility] Allergies Active Allergy Reactions Criticality Noted [...] (Proventil; Ventolin; Proair) 108 (90 Base) MCG/ACT inhalerIndicati ons:Asthma affecting , antepartum (HCC) INHALE 2 PUFFS BY MOUTH EVERY 4 HOURS NEEDED FOR SHORTNESS OF BREATH OR WHEEZING Active ibuprofen (Motrin) 600 MG tablet Take 1 (one) tablet by mouth every 6 hours as needed for Pain 30 tablet 08/16/2024 12:03 PM CDT Active acetaminophen (Tylenol) 500 MG tablet Take 2 (two) tablets by mouth every 6 hours as needed for Fever or Pain 60 tablet 08/16/2024 12:03 PM CDT Active polyethylene glycol 3350 (Miralax) 17 GM/SCOOP powder Mix and drink 17 (seventeen) g by mouth once daily 238 g 08/16/2024 12:03 PM CDT Active Additional Information Patient not taking.Reason: Other, Informant: Patient, Reported on 09/02/2024 docusate sodium (Colace) 100 MG capsule Take 1 (one) capsule by mouth once daily 60 capsule 08/16/2024 12:03 PM CDT Active Additional Information Patient not taking.Reason: Other, Informant: Patient, Reported on 09/02/2024 naloxone HCl (Narcan) 4 MG/0.1ML nasal spray [place] 1 (one) spray into the nose as needed (May repeat every 2 min in alternating nostrils until emergency medical help arrives for overdose) 5 Active Additional Information Patient not taking.Reason: Other, Informant: Patient, Reported on 09/02/2024 oxyCODONE, immediate release, (Roxicodone) 5 MG tabletIndicatio ns:S/P Take 1 (one) tablet by mouth every 6 hours as needed for Pain 12 tablet 08/16/2024 12:03 PM CDT Active Additional Information Patient not taking.Reason: Other, Informant: Patient, Reported on 09/16/2024 labetalol (Normodyne; Trandate) 300 MG tabletIndicatio ns:Hypertension Take 2 (two) tablets by mouth every 8 hours Reasons: High Blood Pressure 90 tablet 1 Active NIFEdipine CR osmotic 24hr (Adalat CC) 60 MG tablet Take 1 (one) tablet by mouth every 12 hours 60 tablet 1 5 Active Active Problems Problem Noted Date Diagnosed [...] - 10/09/2024 11:59 PM CDT Hospital Encounter [facility] at [address], [address] [phone] Alan Vail MD Discharge Disposition: Home or Self Care 10/09/2024 Travel 09/23/2024 10:09 AM CDT - 09/23/2024 11:59 PM CDT [place] [facility] [place] [address], [address] [phone] Alan Vail MD Discharge Disposition: Home or Self Care 09/23/2024 Travel 09/16/2024 9:42 AM CDT - 09/16/2024 11:59 PM CDT Hospital Encounter [facility] at [address], [address] [place] [phone] Alan Vail MD Bryant, Kenisha L, TIRE DEBEADER-ENERGY PROJECTS LEAD Discharge Disposition: Home or Self Care 09/16/2024 9:40 AM CDT - 09/16/2024 9:41 AM CDT Hospital Encounter [facility] at [address], [address] [place] [phone] Alan Vail MD Discharge Disposition: Home or Self Care 09/16/2024 Travel 09/12/2024 Orders Only [facility] at [address], [address] [place] [phone] Ingrid Velasquez RN from Last 3 Months Immunizations Immunization [...] and heating? Not hard at all 10/09/2024 [facility] of Occupat ional Health - Occupational Stress [...] things needed for daily living? No 10/09/2024 [place] Depression Scale Answer Date Recorded [place] Depression Scale Total 3 10/09/2024 The thought [...] any time in the past 12 m [facility], were you homeless or living in a skilled nursing (including now)? No 10/09/2024 Education Answer Date Recorded What is the highest level of school you have completed or the highest degree you have received? 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 Not on file [...] SCDM 2-dose series) 07/15/2020 01/13/2020 COVID-19 VACCINE (2023-2 5 season) 2024 07/19/2021, 06/09/2021 INFLUENZA VACCINE [...] Urine 40.17 mg/dL 09/24/19 12:06 PM CDT [facility] Microalbumin Urine <0.5 mg/dL 09/23/2024 12:06 PM T [facility] Microalbumin/Crea tinine Ratio 09/23/2024 12:06 PM T [facility] Comment:Not Calculated Urine URINE SPECIMEN OBTAINED BY CLEAN CATCH PROCEDURE / Unknown Collection / Unknown 09/23/2024 10:52 AM CDT 09/23/2024 11:42 AM CDT Alan Vail MD LAB - URINE CHEMISTRY ORDERABLES Final Result [facility] [address] [place] [address] * HEMOGLOBIN A1C (09/23/2024 10:52 AM CDT) Hemoglobin A1c 5.3 <5.7 % 09/23/2024 11:55 AM CDT [facility] Estimated Average Glucose 105 mg/dL 09/23/2024 11:55 AM T [facility] Blood BLOOD SPECIMEN / Unknown Venipuncture / Unknown 09/23/2024 10:52 AM CDT 09/23/2024 11:42 AM CDT Narrative [facility] - 09/23/2024 11:55 AM CDT HbA1c [...] MD LAB - CHEMISTRY ORDERABLES Final Result [facility] [address] [place] [address] * (ABNORMAL) COMPREHENSIVE METABOLIC PANEL (09/23/2024 10:52 AM CDT) [facility] Glucose 91 70 - 99 mg/dL 09/23/2024 12:02 PM [facility] Sodium 136 136 - 145 mmol/L 09/23/2024 12:02 PM [facility] Potassium 3.9 3.5 - 5.1 mmol/L 09/23/2024 12:02 PM [facility] Chloride 106 98 - 107 mmol/L 09/23/2024 12:02 PM [facility] CO2 23 22 - 29 mmol/L 09/23/2024 12:02 PM [facility] Calcium 9.6 8.4 - 10.4 mg/dL 09/23/2024 12:02 PM [facility] Anion Gap 7 6 - 16 mmol/L 09/23/2024 12:02 PM [facility] BUN 8 5.3 - 18.7 mg/dL 09/23/2024 12:02 PM [facility] Creatinine 0.74 0.57 - 1.11 mg/dL 09/23/2024 12:02 PM [facility] Alkaline Phosphatase 98 40 - 150 U/L 09/23/2024 12:02 PM [facility] ALT 67(H) 6 - 57 U/L 09/23/2024 12:02 PM [facility] AST 35 10 - 48 U/L 09/23/2024 12:02 PM [facility] Protein Total 7.5 6.4 - 8.3 gm/dL 09/23/2024 12:02 PM [facility] Albumin 3.8 3.4 - 5.0 gm/dL 09/23/2024 12:02 PM [facility] Bilirubin Total 0.4 0.2 - 1.2 mg/dL 09/23/2024 12:02 PM CDT [facility] eGFR by CKD-EPI >90 >=90 mL/min/1.7 3 m2 09/23/2024 12:02 PM CDT [facility] Blood BLOOD SPECIMEN / Unknown Venipuncture / Unknown 09/23/2024 10:52 AM CDT 09/23/2024 11:42 AM CDT Alan Vail MD LAB - CHEMISTRY ORDERABLES Final Result [facility] [address] [place] [address] * (ABNORMAL) LIPID PROFILE (09/23/2024 10:52 AM CDT) Cholesterol 249(H) <200 mg/dL 09/23/2024 12:02 PM CDT [facility] Triglycerides 243(H) <150 mg/dL 09/23/2024 12:02 PM T [facility] HDL Cholesterol 38(L) >40 mg/dL 12:02 PM [facility] LDL Calculated 162(H) <130 mg/dL 09/23/2024 12:02 PM T [facility] VLDL Calculated 49(H) <=30 mg/dL 12:02 PM T [facility] Chol HDL Ratio 6.6(H) <4.5 09/23/2024 12:02 PM T [facility] LDL/HDL Ratio 4.3 <5.0 09/23/2024 12:02 PM T [facility] Blood BLOOD SPECIMEN / Unknown Venipuncture / Unknown 09/23/2024 10:52 AM CDT 09/23/2024 11:42 AM CDT Alan Vail MD LAB - CHEMISTRY ORDERABLES Final Result [facility] [address] [place] [address] * URINE CULTURE (09/16/2024 10:32 AM CDT) Culture Urine 50,000-100,000 CFU/mL urogenital mark 09/18/2024 12:21 AM CDT [facility] Urine URINE SPECIMEN OBTAINED BY CLEAN CATCH PROCEDURE / Unknown Collection / Unknown 09/16/2024 10:32 AM CDT 09/16/2024 12:49 PM CDT us Alan Vail MD LAB - MICROBIOLOGY ORDERABLES Fi nal Result [facility] [address] [place] [address], [place] [phone] from Last [address] [place] [address] MEDICAID - [place] MEDICAID - OUT OF STATE Advance Directives * Full Code (Latest Code Status on File) Date Activated Date Inactivated Comments 08/13/2024 7:42 AM 08/16/2024 6:04 PM * Full Code Date Activated Date Inactivated Comments 08/11/2024 9:30 AM 08/13/2024 7:42 AM * Full Code Date Activated Date Inactivated Comments 08/07/2024 6:33 PM 08/11/2024 9:29 AM Care Teams Tea Bag Packer Relationship Specialty Start Date End Date Bushra Tello DO [address] [place] [address] PCP - General Family Medicine 07/23/24
--- OUTSIDE RECORDS SUMMARY | 2024-12-11 00:27 | XMS_ITS | Encounter Summary ---
Author Organization [facility] Address [address] [place] [address] Care Team Providers Care Cable Television Access Coordinator Name Role Phone Bushra Tello DO Primary Care Provider [phone] Reason for Visit * Reason Onset Date Comments Appointment 08/18/2024 Encounter Details Date Type Department Care Team (Late st Contact Info) Description 08/18/2024 Telephone [facility] - PRACTICE ADMINISTRATOR [address] [place] [address] [facility] [address] , [address] [place], [place] [id number] Appointment Social History Tobacco Use Types Packs/Day [...] and heating? Not hard at all 08/21/2024 [facility] [place] of Occupat ional Health - Occupational Stress [...] things needed for daily living? No 08/21/2024 [place] Depression Scale Answer Date Recorded [place] Depression Scale Total 12 08/21/2024 The thought [...] living in a penitentiary (including now)? No 08/21/2024 Education Answer Date Recorded What is the highest level of school you have completed or the highest degree you have received? 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 CB# [phone] documented in this encounter Plan of Treatment Not on file documented as of this encounter Visit Diagnoses Not on filedocumented in this encounter Care Teams Cable Television Access Coordinator Relationship Specialty Start Date End Date Bushra Tello DO [address] [place] [address] PCP - General Family Medicine 07/23/24 documented as of this encounter
[2024-12-11 00:55] VITALS: BP 120/78; PULSE 90; RESP 16; O2SAT 98
== END 2024-12-11 00:55 | disposition home or self-care (01) ==
PROVIDERS: Emergency Provider Emergency Medicine; PCP Family Medicine
DX: R42 Dizziness and giddiness (principal); R07.9 Chest pain, unspecified
CPT/HCPCS: 71045; 93005; 99283; A9270

== ENCOUNTER 2025-04-24 18:32 | Emergency (ER) | payer BC, SELFPAY ==
--- NOTE | ~2025-04-24 | XR_ITS ---
EXAMINATION: XR chest 2V DATE: 04/24/2025 18:54 INDICATION: Shortness of breath. TECHNIQUE: Frontal and lateral views of the chest were obtained. COMPARISON: Chest x-ray dated 12/10/2024 FINDINGS: Heart size is normal. Lungs are clear of acute processes. Armida and mediastinum are normal. IMPRESSION: 1. No acute findings. Reviewed, dictated and finalized at location T. MACHINE OPERATOR IMPRESSION: 1. No acute findings.
[2025-04-24 18:32] VITALS: BP 146/93; PULSE 80; RESP 14; TEMP 36.7; O2SAT 96
--- OUTSIDE RECORDS SUMMARY | 2025-04-24 18:34 | XMS_ITS | Clinical Summary ---
Author Organization [facility] Address [address] [place] [address] Care Team Providers Care Mental Telepathist Name Role Phone Bushra Tello DO Primary Care Provider [phone] Source Comments [facility],non-owned Affiliates and Associated Physician Practices is amultiple site organization consisting of ambulatory clinics and hospital sitesin [place], [place], [place] and [place]. This disclosure is being madepursuant to the Care Everywhere program and may not contain all information available regarding this patient. Last updated 18.[facility] Allergies Active Allergy Reactions Criticality Noted Date [...] naloxone HCl (Narcan) 4 MG/0.1ML nasal spray [place] 1 (one) spray into the nose as [...] 05/31/2024 09/16/2024 Overview (08/08/2024): BMI pre- 34.45 Immunizations Immunization Administration Dates Next Due Covid [...] and heating? Not hard at all 10/09/2024 [facility] of Occupat ional Health - Occupational Stress [...] things needed for daily living? No 10/09/2024 [place] Depression Scale Answer Date Recorded [place] Depression Scale Total 3 10/09/2024 The thought [...] any time in the past 12 m [facility], were you homeless or living in a nursing home (including now)? No 10/09/2024 Education Answer Date Recorded What is the highest level of school you have completed or the highest degree you have received? 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 [...] - [place] SCDM 2-dose series) 07/15/2020 01/13/2020 DEPRESSION SCREENING 06/04/2024 COVID-19 VACCINE (3 - 2024-2 6 season) 2025 07/19/2021, 06/09/2021 INFLUENZA VACCINE (#1) 2025 , [...] 11/22/2017, 10/17/2011 HIV SCREENING Completed 07/02/2024, 03/10/2024 Insurance MEDICAID - [place] MEDICAID - OUT OF STATE Advance Directives * Full Code (Latest Code Status on File) Date Activated Date Inactivated Comments 08/13/2024 7:42 AM 08/16/2024 6:04 PM * Full Code Date Activated Date Inactivated Comments 08/11/2024 9:30 AM 08/13/2024 7:42 AM * Full Code Date Activated Date Inactivated Comments 08/07/2024 6:33 PM 08/11/2024 9:29 AM Care Teams Mental Telepathist Relationship Specialty Start Date End Date Bushra Tello DO [address] [place] [address] PCP - General Family Medicine 07/23/24
--- NOTE | 2025-04-24 18:39 | ED.SOB ---
HPI - SOB/Dyspnea General Chief Complaint: Shortness of Breath/Dyspnea Stated Complaint: shortness of breath Time Seen by Provider: 04/24/25 18:34 Source: patient Mode of arrival: ambulatory Limitations: no limitations History of Present Illness HPI Narrative: Patient is a 24-year-old female with lightheaded and chest pain and short of breath this evening and came to the ER for evaluation. She said this happens every night and she is on BuSpar for anxiety. Tonight it was a little bit worse so she came for evaluation. MD elicited complaint: shortness of breath and chest pain Pertinent past history: other (Anxiety) Onset (ago): year(s) Context: other (Patient has evening onset of chest pain and lightheaded and shortness of breath and tonight it was a little bit worse than normal) Timing: intermittent Severity: moderate Exacerbating factors: stress Relieving factors: other (BuSpar) Known history of: other (Anxiety) Associated symptoms: chest pain, lightheadedness and other (Shortness of breath) Treatment prior to arrival: none (Her BuSpar is due at 7:00 p.m. and it is only 6:50 p.m.) Related Data Home oxygen amount: none Allergies Allergy/AdvReac Type Severity Reaction Status Date / Time vancomycin Allergy Unknown Rash Verified 04/24/25 18:57 Review of Systems Review of Systems: All systems reviewed & are unremarkable except as noted in HPI and below Constitutional: Constitutional: Reports no additional constitutional complaints Eyes: Eyes: Reports no additional eye complaints ENT: Reports system reviewed and no additional complaints, except as documented Cardiovascular: Cardiovascular: Reports no additional cardiovascular complaints Respiratory: Respiratory: Reports no additional respiratory complaints Gastrointestinal: Gastrointestinal: Reports no additional gastrointestinal complaints Genitourinary: Genitourinary: Reports no additional female genitourinary complaints Musculoskeletal: Musculoskeletal: Reports no additional musculoskeletal complaints Integumentary/Breasts: Skin/Breast: Reports system reviewed and no additional complaints, except as docu Neurologic: Reports system reviewed and no additional complaints, except as documented Psychiatric: Psychiatric: Reports no additional psychiatric complaints Endocrine: Endocrine: Reports no additional endocrine complaints Hematologic/Lymphatic: Hematologic/Lymphatic: Reports no additional hematologic/lymphatic complaints Allergic/Immunologic: Allergic/Immunologic: Reports no additional allergic/immunologic complaints PMFSH Past Medical History Medical History Wears glasses Claustrophobia Moderate right ankle sprain Surgical History Surgical History H/O section August 12, 2024 H/O laparoscopy Family History Family History Father Hypertension Mother Leukemia Hypertension Depression Sibling Asthma Depression Grandparent Skin cancer Diabetes mellitus Social History Social History Smoking status: Never smoker Alcohol intake: never Substance use: never Substance use type: does not use Lack of Transportation: No Lack of Food: Never True Current Housing: I Have Housing Concerned About Future Housing: No Difficulty Paying Gas/Electric Bills: No Difficulty Paying for Meds: No Currently Unemployed: No Education: High School Diploma/GED Difficulty w/ Childcare or Family Care: No Living arrangements: with family Occupation/Education: student Gender identity (if verbalized by the patient): Female Exam Const: General: healthy appearing Nutritional Appearance: well nourished Orientation/consciousness: patient oriented x3 HENMT: Head: normal to inspection Ears: external ears normal Face/Nose/Sinus: Normal external nose present Eyes: Conjunctivae: conjunctivae normal Pupils: Equal, round and reactive pupils present EOM: EOMs intact bilaterally Neck: Neck: normal visual inspection Chest: Chest palpation & inspection: normal inspection of the chest Resp: Effort & Inspection: normal respiratory effort and not labored Auscultation: clear to auscultation bilaterally and no crackles Cardio: Rate: regular rate Rhythm: regular rhythm Heart sounds: no murmurs GI: Inspection: non-distended GI Palp: Yes Soft to palpation and No Tenderness to palpation present (GI) Auscultation: normal bowel sounds : General: Yes bladder normal to palpation Back/Spine/Pelvis: Back: no CVA tenderness Skin: General skin exam: normal color Rashes: no rashes Wounds: no wounds Neuro: General: patient oriented x3, moves all extremities and no meningeal signs Extrem: General: normal to inspection, no clubbing, cyanosis or edema and no pedal edema Psych: Mental Status: mental status grossly normal Affect: normal affect Attitude: cooperative Course Vital Signs Vital signs: Vital Signs Temperature 36.7 C 04/24/25 18:32 Pulse Rate 80 04/24/25 18:32 Respiratory Rate 14 04/24/25 18:32 Blood Pressure 146/93 H 04/24/25 18:32 Pulse Oximetry 96 04/24/25 18:32 Oxygen Delivery Room Air 04/24/25 18:32 Temperature 36.8 C 04/24/25 19:56 Pulse Rate 92 04/24/25 19:56 Respiratory Rate 16 04/24/25 19:56 Blood Pressure 120/91 H 04/24/25 19:56 Pulse Oximetry 98 04/24/25 19:56 Oxygen Delivery Room Air 04/24/25 19:56 MDM - SOB/Dyspnea MDM Narrative Medical decision making narrative: Patient is a 24-year-old female with chest pain and shortness of breath and lightheadedness today and she typically has every day at this hour but slightly worse today. Chest x-ray an EKG. Xanax trial. Imaging Data Radiologist's impression: Chest x-ray is negative for acute process ECG Data EKG #1: Attestation: I personally reviewed and interpreted this ECG as follows: ECG completion date: 04/24/25 ECG completion time: 19:05 EKG Interpretation: normal rate, sinus rhythm, no ectopy, normal QRS, normal QT, NL axis and no acute changes Discharge Plan Discharge Clinical Impression: Anxiety, Atypical chest pain Patient Disposition: Home Condition: Stable Instructions: Chest Pain (ED), How to Stop Smoking (ED), Anxiety (ED) Additional Instructions: Continue your home meds Monitor your blood pressure twice a day and take that information with you when you follow-up with your doctor Talk to your doctor about medication and that can assist you stopping smoking. Return to the emergency department if symptoms worsen Patient Language: [place] Prescriptions: No Action albuterol sulfate 90 mcg/actuation HFA aerosol inhaler 2 inh inhalation Q4H PRN (Reason: shortness of breath or wheezing) Qty: 8.5 5RF nifedipine 60 mg tablet extended release 60 mg PO DAILY Qty: 90 1RF buspirone 10 mg tablet 10 mg PO BID Qty: 180 1RF labetalol 200 mg tablet 200 mg PO ONCE Qty: 90 1RF Follow-up/Referrals: Bushra Tello DO [Primary Care Provider, Family Practice]
--- NOTE | 2025-04-24 18:47 | ECG_ITS ---
Test Date: 2025-04-24 19:03:05 Measurements Intervals [place] Rate: 72 P: 37 [place]: 145 QRS: 39 QRSD: 98 T: 32 QT: 392 QTc: 429 Interpretive Statements SINUS RHYTHM artifact Electronically Signed On 04-24-2025 19:10:59 GRADUATE ASSISTANT by Suzan Soares M.D.
[2025-04-24 18:54] VITALS: O2SAT 96
--- OUTSIDE RECORDS SUMMARY | 2025-04-24 19:04 | XMS_ITS | Clinical Summary ---
Author Organization [facility] Address [address] [place] [address] Care Team Providers Care Clipper Machine Operator Name Role Phone Bushra Tello DO Primary Care Provider [phone] Source Comments [facility],non-owned Affiliates and Associated Physician Practices is amultiple site organization consisting of ambulatory clinics and hospital sitesin [place], [place], [place] and [place]. This disclosure is being madepursuant to the Care Everywhere program and may not contain all information available regarding this patient. Last updated 18.[facility] Allergies Active Allergy Reactions Criticality Noted [...] naloxone HCl (Narcan) 4 MG/0.1ML nasal spray [place] 1 (one) spray into the nose as [...] and heating? Not hard at all 10/09/2024 [facility] of Occupat ional Health - Occupational [...] things needed for daily living? No 10/09/2024 [place] Depression Scale Answer Date Recorded [place] Depression Scale Total 3 10/09/2024 The thought [...] any time in the past 12 m [facility], were you homeless or living in a fdc (including now)? No 10/09/2024 Education Answer Date Recorded What is the highest level of school you have completed or the highest degree you have received? 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
[2025-04-24] MEDS: ALPRAZolam (*CRX) 0.5 MG TABLET PO (19:11)
[2025-04-24 19:56] VITALS: BP 120/91; PULSE 92; RESP 16; TEMP 36.8; O2SAT 98
== END 2025-04-24 20:00 | disposition home or self-care (01) ==
PROVIDERS: Emergency Provider Emergency Medicine; PCP Family Medicine
DX: F41.9 Anxiety disorder, unspecified (principal); R07.89 Other chest pain
CPT/HCPCS: 71046; 93005; 99283; A9270